=== PATIENT | female | born 1945 | race Caucasian/White ===

== ENCOUNTER → 2017-12-13 08:14 | Outpatient (POV) | payer MEDICARE, OTHER, SELFPAY | PROVIDERS: Visit Provider Nurse Practitioner Acute Care | DX: Z00.00 Encounter for general adult medical examination without abnormal findings (principal) ==

== ENCOUNTER → 2017-12-13 08:59 | Outpatient (POV) | payer MEDICARE, OTHER, SELFPAY ==
[2017-12-13 09:17] VITALS: BP 145/86; PULSE 65; RESP 18; TEMP 36.2; O2SAT 99; BMI 22.4
--- NOTE | 2017-12-13 09:53 | HMH.PAINSOAP ---
[facility] Pain Management SOAP Note Subjective:: This patient is a pleasant 72-year-old white female who we have been treating for mid back pain thoracic radiculopathy symptoms with diffuse osteopenia and osteoporosis and compression fractures at T5, T6, T7 and T9. She did well after a thoracic epidural steroid injection and bracing. She does wear her brace when she is active at home. Pain is down to a 1-2 out of 10 normally. She only has increased with increased activity. She is doing well with no complaints at this time. Objective:: Alert and oriented ?3 in no acute distress. Patient has a normal gait. Patient does have some tenderness over the mid back. Motor strength of the upper and lower extremities is 5/5. There is no gross sensory deficit. 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 She only has increased pain with increased activity. She is to continue wearing her brace. We will follow-up with her in 3 months to reassess her symptoms. If she does have increased pain between now and then she is to call me in the pain clinic and we will get her back in and possibly reassess for repeat the epidural steroid injection.
== END ==
PROVIDERS: Family Provider Internal Medicine Adolescent Medicine; PCP Internal Medicine Adolescent Medicine; Visit Provider Anesthesiology
DX: M54.14 Radiculopathy, thoracic region (principal)
CPT/HCPCS: 99212

== ENCOUNTER → 2017-12-28 11:29 | Outpatient (CLI) | payer MEDICARE, OTHER, SELFPAY ==
--- NOTE | 2017-12-28 11:45 | XR_ITS ---
XR chest 2V HISTORY: ITS.REASON: CAD,HTN,TOB. USE, ORDERING PHYSICIAN: Varun Blake MD PATIENT AGE: 72 years COMPARISON: 01/08/2016 FINDINGS: The cardiomediastinal silhouette and pulmonary vascularity are within normal limits. There is chronic blunting of the right CP angle. There is vague increased density in the right apex. This is nonspecific. Possibly related to patient's kyphosis and pleura. Consider follow-up to confirm stability. There is exaggeration of thoracic kyphosis with wedging of mid dorsal vertebra unchanged. IMPRESSION: Chronic changes, no definite acute finding.
[2017-12-28 13:03] LABS: Alanine Aminotransferase 24 U/L (12-78); Alkaline Phosphatase 87 U/L (46-116); Aspartate Amino Transferase 15 U/L (15-37); Bilirubin,Direct 0.2 mg/dL (0.0-0.2); Bilirubin,Total 0.5 mg/dL (0.2-1.0); Chol/HDL Ratio 1.9 (1-3.5); Cholesterol 158 mg/dL (140-200); HDL Cholesterol 85 mg/dL (29-89); LDL Cholesterol 59 mg/dL (0-130); Total Protein,Serum 7.5 gm/dL (6.4-8.2); Triglycerides 70 mg/dL (30-200); VLDL Cholesterol 14 mg/dL (0-40)
== END ==
PROVIDERS: PCP Internal Medicine Adolescent Medicine; Visit Provider Internal Medicine
DX: I25.10 Atherosclerotic heart disease of native coronary artery without angina pectoris (principal); I10 Essential (primary) hypertension; E78.5 Hyperlipidemia, unspecified; Z72.0 Tobacco use; Z95.5 Presence of coronary angioplasty implant and graft
CPT/HCPCS: 36415; 71046; 80061; 80076

== ENCOUNTER → 2017-12-31 14:06 | Outpatient (CLI) | payer MEDICARE, OTHER, SELFPAY ==
--- NOTE | 2017-12-31 14:15 | CA_ITS ---
PROCEDURE: 2-D M-mode and color Doppler study INDICATIONS FOR THE TEST: Chest pain COPDX Heart Murmur Tobacco SmokingX Palpitations Fatigue Syncope Edema HypertensionXDiabetes Mellitus Rheumatic Fever SOB DOEXObesity HyperlipidemiaX Family History HD Additional History CAD PATIENT INFORMATION HEIGHT: 65 WEIGHT:135 GENDER: Female B/P:130/70 2-D/M-MODE INTERPRETATION: 2-D MEASUREMENTS OBSERVED VALUES IN CMS Right Ventricular Dimension (RVDd) 1.3 Interventricular Septum (Thickness)(IVsd) 1.0 Left Ventricular Internal Dimensions(LVIDd) 5.1 Left Ventricular Posterior Wall (Thickness)(LVPWd) 1.1 Aortic Root 3.8 Aortic Cusp Separation 2.0 Left Atrial Dimensions (LAD) 3.2 2D 1. Left atrium is qualitatively moderately enlarged, left ventricle is normal size, there is no concentric left ventricular hypertrophy, visually estimated ejection fraction 55% with no obvious regional wall motion abnormality. 2. The right atrium is mildly enlarged, right ventricle is normal size and contractility. 3. The aortic valve is thickened and calcified leaflet continue to display mobility. 4. The mitral and tricuspid valve leaflets are minimally thickened. 5. The pulmonic valve is poorly visualized 6. No significant pericardial effusion noted. DOPPLER INTERROGATION: Doppler interrogation of the aortic, mitral and tricuspid valvular presence of mild mitral and moderate tricuspid regurgitation, calculated right ventricular systolic pressure is 46 mmHg consistent with moderate bony hypertension, diastolic parameters are inconclusive. CONCLUSION: 1. Biatrial enlargement, normal left ventricular size, preserved left ventricular systolic function, visually estimated ejection fraction 55% with no obvious regional wall motion abnormality diastolic parameters are inconclusive. 2. Mild mitral and moderate tricuspid regurgitation, calculated right ventricular systolic pressure 46 mmHg consistent with moderate pulmonary hypertension. 3. No significant pericardial effusion noted.
== END ==
PROVIDERS: Family Provider Internal Medicine Adolescent Medicine; PCP Internal Medicine Adolescent Medicine; Visit Provider Internal Medicine
DX: I25.10 Atherosclerotic heart disease of native coronary artery without angina pectoris (principal); I10 Essential (primary) hypertension; E78.5 Hyperlipidemia, unspecified; Z72.0 Tobacco use; Z95.5 Presence of coronary angioplasty implant and graft
CPT/HCPCS: 93306

== ENCOUNTER → 2018-02-28 13:15 | Outpatient (POV) | payer MEDICARE, OTHER, SELFPAY ==
[2018-02-28 13:46] VITALS: BP 127/69; PULSE 68; BMI 22.3
--- NOTE | 2018-02-28 14:23 | HMH.PAINSOAP ---
[facility] Pain Management SOAP Note Subjective:: Is a pleasant 73-year-old white female who presents today for follow-up. Patient has had a T6-T7 thoracic epidural steroid injection back in August of last year and has done extremely well with it. Patient had 80% relief until recently. Patient is interested in doing a repeat injection. Patient is also doing bracing therapy. She does wear her brace when she is active at home. Patient states her pain is 6 out of 10 today. And it increases with activity. Patient's tried and failed medications, anti-inflammatories, bracing and physical therapy. ROS General: no recent weight change, no fever, no sleep disturbances Respiratory: no cough, no shortness of air, no recurring pulmonary infections Cardiovascular/Peripheral Vascular: No chest pain, No palpitations, no edema, no shortness of breath. Gastrointestinal: no incontinence, normal bowel movements reported Genitourinary: no incontinence Musculoskeletal: Back pain Psychiatric: normal mood/ affect, Neurological: [denies weakness in extremities], [denies balance issues] Objective:: Physical Exam General: Alert and oriented x3, no acute distress, pleasant and cooperative, [on room air] Lungs: Resps E/U, Symmetrical chest expansion, Eyes: PERRL Musculoskeletal: Flexion and extension of thoracic spine somewhat guarded secondary to pain, deep tendon reflexes normal, strength in upper and lower extremities [5/5], normal gait noted Neurological: speech clear, laborer driver equal, no gross sensory deficits Assessment:: 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 Given the efficacy of the last one I believe that this will be very helpful. She is to continue wearing her brace. I will follow-up with her after her injection and reassess her symptoms at that time. This note was dictated using voice recognition software and may contain errors or omissions
--- NOTE | 2018-02-28 14:27 | P.CONS_ITS ---
[facility] Pain Management SOAP Note Subjective:: Is a pleasant 73-year-old white female who presents today for follow-up. Patient has had a T6-T7 thoracic epidural steroid injection back in August of last year and has done extremely well with it. Patient had 80% relief until recently. Patient is interested in doing a repeat injection. Patient is also doing bracing therapy. She does wear her brace when she is active at home. Patient states her pain is 6 out of 10 today. And it increases with activity. Patient's tried and failed medications, anti-inflammatories, bracing and physical therapy. ROS General: no recent weight change, no fever, no sleep disturbances Respiratory: no cough, no shortness of air, no recurring pulmonary infections Cardiovascular/Peripheral Vascular: No chest pain, No palpitations, no edema, no shortness of breath. Gastrointestinal: no incontinence, normal bowel movements reported Genitourinary: no incontinence Musculoskeletal: Back pain Psychiatric: normal mood/ affect, Neurological: [denies weakness in extremities], [denies balance issues] Objective:: Physical Exam General: Alert and oriented x3, no acute distress, pleasant and cooperative, [ on room air] Lungs: Resps E/U, Symmetrical chest expansion, Eyes: PERRL Musculoskeletal: Flexion and extension of thoracic spine somewhat guarded secondary to pain, deep tendon reflexes normal, strength in upper and lower extremities [5/5], normal gait noted Neurological: speech clear, quality assurance advisor equal, no gross sensory deficits Assessment:: 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 Given the efficacy of the last one I believe that this will be very helpful. She is to continue wearing her brace. I will follow-up with her after her injection and reassess her symptoms at that time. This note was dictated using voice recognition software and may contain errors or omissions
== END ==
PROVIDERS: Family Provider Internal Medicine Adolescent Medicine; PCP Internal Medicine Adolescent Medicine; Visit Provider Clinical Nurse Specialist Family Health
DX: M54.14 Radiculopathy, thoracic region (principal)
CPT/HCPCS: 99212

== ENCOUNTER → 2018-05-16 11:10 | Outpatient (CLI) | payer MEDICARE, OTHER, SELFPAY ==
[2018-05-16 11:59] LABS: Anion Gap 9.7 mEq/L (5-15); Blood Urea Nitrogen 14 mg/dL (7-18); Calcium 9.3 mg/dL (8.5-10.1); Carbon Dioxide 28 mmol/L (21.0-32.0); Chloride 98 mmol/L (98-107); Creatinine,Serum 0.87 mg/dL (0.55-1.02); Estimated Glomerular Filt Rate 64 ml/min (>60); GFR (African American) 77 ML/MIN (>60); Glucose 101 mg/dL (74-106); Potassium 5.7 mmoL/L (3.5-5.1); Sodium 130 mmol/L (136-145)
== END ==
PROVIDERS: Visit Provider Physician Assistant
DX: J44.9 Chronic obstructive pulmonary disease, unspecified (principal); I10 Essential (primary) hypertension; E78.5 Hyperlipidemia, unspecified; I27.20 Pulmonary hypertension, unspecified; I25.10 Atherosclerotic heart disease of native coronary artery without angina pectoris; Z95.5 Presence of coronary angioplasty implant and graft; F17.200 Nicotine dependence, unspecified, uncomplicated
CPT/HCPCS: 36415; 80048

== ENCOUNTER → 2018-05-20 10:53 | Outpatient (CLI) | payer MEDICARE, OTHER, SELFPAY ==
[2018-05-20 12:09] LABS: Anion Gap 12.1 mEq/L (5-15); Blood Urea Nitrogen 16 mg/dL (7-18); Calcium 9.2 mg/dL (8.5-10.1); Carbon Dioxide 25 mmol/L (21.0-32.0); Chloride 96 mmol/L (98-107); Creatinine,Serum 0.87 mg/dL (0.55-1.02); Estimated Glomerular Filt Rate 64 ml/min (>60); GFR (African American) 77 ML/MIN (>60); Glucose 101 mg/dL (74-106); Potassium 5.1 mmoL/L (3.5-5.1); Sodium 128 mmol/L (136-145)
== END ==
PROVIDERS: Visit Provider Urology
DX: I10 Essential (primary) hypertension (principal); J44.9 Chronic obstructive pulmonary disease, unspecified; E78.5 Hyperlipidemia, unspecified; I27.20 Pulmonary hypertension, unspecified; I25.10 Atherosclerotic heart disease of native coronary artery without angina pectoris; Z95.5 Presence of coronary angioplasty implant and graft; F17.200 Nicotine dependence, unspecified, uncomplicated
CPT/HCPCS: 36415; 80048

== ENCOUNTER → 2018-05-24 09:47 | Outpatient (CLI) | payer MEDICARE, OTHER, SELFPAY ==
--- NOTE | 2018-05-24 09:49 | XR_ITS ---
XR chest 2V HISTORY: ITS.REASON: copd, sob ORDERING PHYSICIAN: Lima Gong PATIENT AGE: 73 years COMPARISON: 12/28/2017 FINDINGS: The cardiomediastinal silhouette and pulmonary vascularity are within normal limits. There is chronic blunting of the right CP angle. No lobar consolidation or collapse. There is mild biapical pleural thickening. There is thoracic kyphosis with mild wedging of several dorsal vertebral body at T5, T6, T7, and T9 not significantly changed. COPD with hyperinflation and prominent anterior clear space. IMPRESSION: COPD, no acute finding. Thoracic kyphosis with chronic wedge compression changes
== END ==
PROVIDERS: PCP Internal Medicine Adolescent Medicine; Visit Provider Urology
DX: R06.02 Shortness of breath (principal); F17.200 Nicotine dependence, unspecified, uncomplicated
CPT/HCPCS: 71046

== ENCOUNTER → 2018-06-08 12:49 | Outpatient (CLI) | payer MEDICARE, OTHER, SELFPAY | PROVIDERS: PCP Internal Medicine Adolescent Medicine; Visit Provider Internal Medicine | DX: G47.33 Obstructive sleep apnea (adult) (pediatric) (principal) | CPT/HCPCS: G0399 ==

== ENCOUNTER → 2018-06-13 08:20 | Outpatient (POV) | payer MEDICARE, OTHER, SELFPAY | PROVIDERS: Family Provider Internal Medicine Adolescent Medicine; PCP Internal Medicine Adolescent Medicine; Visit Provider Nurse Practitioner Acute Care | DX: Z00.00 Encounter for general adult medical examination without abnormal findings (principal) ==

== ENCOUNTER → 2018-09-29 19:47 | Outpatient (CLI) | payer MEDICARE, OTHER, SELFPAY | PROVIDERS: PCP Internal Medicine Adolescent Medicine; Visit Provider Nurse Practitioner Family | DX: G47.33 Obstructive sleep apnea (adult) (pediatric) (principal) | CPT/HCPCS: 95811 ==

== ENCOUNTER → 2018-10-05 06:21 | Outpatient (CLI) | payer MEDICARE, OTHER, SELFPAY ==
--- NOTE | 2018-10-05 06:24 | NM_ITS ---
SPECT MYOCARDIAL PERFUSION SCAN, REST AND STRESS: EXERCISE STRESS: [facility] REVIEW QGS EF AND WALL MOTION EVALUATION: QPS - PERFUSION EVALUATION: HISTORY: Chest pain, SOA PROCEDURE: Rest imaging performed after administration of10.47 millicuries Tc MIBI. Dose administered at6:35 a.m., with imaging thereafter. Stress imaging was then performed following5 minutes 30 seconds of exercise stress. The patient achieved a heart [id number] with projected heart rate of125 . Resting BP172/85 with stress 200/90. At maximum exercise stress,32.1 millicuries Tc MIBI administered at8:15 a.m. with [id number] minutes thereafter. FINDINGS: Perfusion Evaluation: The single slice spect images as well as the [facility] bull's-eye data summary were reviewed. Wall Motion and Ejection Fraction Evaluation: Gated SPECT review and analysis used to evaluate these features. There is a 69 % left ventricular ejection fraction. There seems to be good wall motion Stress images reveal decreased activity in the anterior wall with significant improvement during rest images. Gated images calculated ejection fraction of 69% with normal wall motion. IMPRESSION: High risk abnormal stress test with anterior reversible ischemia. Normal ejection fraction and normal wall motion
--- NOTE | 2018-10-05 07:23 | HMH.ITSHM ---
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 []VITAMIN D3 CLOPIDOGREL ISOSORBIDE OMEPRAZOLE ATORVASTATIN BISOPROLOL
== END ==
PROVIDERS: PCP Internal Medicine Adolescent Medicine; Visit Provider Internal Medicine
DX: R07.9 Chest pain, unspecified; I25.10 Atherosclerotic heart disease of native coronary artery without angina pectoris; R06.00 Dyspnea, unspecified; E78.49 Other hyperlipidemia; I10 Essential (primary) hypertension; I27.20 Pulmonary hypertension, unspecified; J44.9 Chronic obstructive pulmonary disease, unspecified; R53.83 Other fatigue; Z95.5 Presence of coronary angioplasty implant and graft; Z72.0 Tobacco use
CPT/HCPCS: 78452; 93017; A9502

== ENCOUNTER → 2018-10-25 09:20 | Outpatient (CLI) | payer MEDICARE, OTHER, SELFPAY ==
[2018-10-25 10:56] LABS: Alanine Aminotransferase 20 U/L (12-78); Albumin Level 3.9 gm/dL (3.4-5.0); Alkaline Phosphatase 85 U/L (46-116); Aspartate Amino Transferase 13 U/L (15-37); Bilirubin,Direct 0.1 mg/dL (0.0-0.2); Bilirubin,Indirect 0.2 mg/dL (0.0-0.9); Bilirubin,Total 0.3 mg/dL (0.2-1.0); Chol/HDL Ratio 2.2 (1-3.5); Cholesterol 181 mg/dL (140-200); HDL Cholesterol 81 mg/dL (29-89); LDL Cholesterol 81 mg/dL (0-130); Total Protein,Serum 7.4 gm/dL (6.4-8.2); Triglycerides 96 mg/dL (30-200); VLDL Cholesterol 19 mg/dL (0-40)
== END ==
PROVIDERS: Visit Provider Urology
DX: I25.118 Atherosclerotic heart disease of native coronary artery with other forms of angina pectoris; E78.49 Other hyperlipidemia
CPT/HCPCS: 36415; 80061; 80076

== ENCOUNTER → 2019-06-14 12:21 | Outpatient (CLI) | payer MEDICARE, BC, SELFPAY ==
[2019-06-14 12:51] LABS: Basophils % 0.9 % (0.1-2.0); Eosinophils # 0.1 K/mm3 (0.0-0.4); Eosinophils % 1.9 % (0.1-12.0); Hematocrit 38.2 % (37.0-47.0); Hemoglobin 12.6 g/dL (12.2-16.2); Lymphocytes # 1.7 K/mm3 (0.7-4.5); Mean Corpuscular HGB Conc 32.9 g/dL (31.8-35.4); Mean Corpuscular Hemoglobin 29.1 pg (27.0-31.2); Mean Corpuscular Volume 88.5 fl (81-99); Mean Platelet Volume 7.3 fl (7.4-10.4); Monocytes # 0.3 K/mm3 (0.1-1.0); Monocytes % 5.3 % (1.7-9.3); Neutrophils # 3.1 K/mm3 (1.8-7.8); Platelet Count 293 K/mm3 (142-424); Red Blood Count 4.32 M/mm3 (4.20-5.40); Red Cell Distribution Width 13.3 % (11.5-17.5); White Blood Count 5.2 K/mm3 (4.8-10.8)
[2019-06-14 13:31] LABS: Potassium 4.7 mmoL/L (3.5-5.1); Sodium 132 mmol/L (136-145)
[2019-06-14 14:00] LABS: Alanine Aminotransferase 20 U/L (12-78); Albumin Level 4.1 gm/dL (3.4-5.0); Albumin/Globulin Ratio 1.1 (1.1-1.8); Alkaline Phosphatase 84 U/L (46-116); Anion Gap 13.7 mEq/L (5-15); Aspartate Amino Transferase 10 U/L (15-37); Bilirubin,Total 0.5 mg/dL (0.2-1.0); Blood Urea Nitrogen 13 mg/dL (7-18); Calcium 9.7 mg/dL (8.5-10.1); Carbon Dioxide 26 mmol/L (21.0-32.0); Chloride 97 mmol/L (98-107); Chol/HDL Ratio 2.4 (1-3.5); Cholesterol 201 mg/dL (140-200); Creatinine,Serum 0.94 mg/dL (0.55-1.02); Estimated Glomerular Filt Rate 58 ml/min (>60); Free Thyroxine Index 3.1 ug/dL (5.93-13.13); GFR (African American) 70 ML/MIN (>60); Globulin 3.6 gm/dl (1.3-3.2); Glucose 92 mg/dL (74-106); HDL Cholesterol 85 mg/dL (29-89); LDL Cholesterol 97 mg/dL (0-130); T4 (Thyroxine) 8.6 ug/dl (4.7-13.3); Thyroid Stimulating Hormone 2.16 uIU/ml (0.358-3.740); Total Protein,Serum 7.7 gm/dL (6.4-8.2); Triglycerides 97 mg/dL (30-200); Triiodothryronine (T3) Uptake 36 % (31-39); VLDL Cholesterol 19 mg/dL (0-40)
[2019-06-15 13:20] LABS: Rapid Plasma Reagin Ab Titer Non Reactive (NonRea<1:1); Vitamin B12 334 pg/mL (232-1245); Vitamin D 25 Hydroxy 44.4 ng/mL (30.0-100.0)
== END ==
PROVIDERS: Visit Provider Internal Medicine Adolescent Medicine
DX: G60.9 Hereditary and idiopathic neuropathy, unspecified (principal); E78.49 Other hyperlipidemia
CPT/HCPCS: 36415; 80053; 80061; 82607; 82652; 83735; 84436; 84443; 84479; 85025; 86592

== ENCOUNTER → 2019-07-28 13:41 | Outpatient (CLI) | payer MEDICARE, BC, SELFPAY ==
--- NOTE | 2019-07-28 13:55 | XR_ITS ---
PROCEDURE: XR SHOULDER LT MIN 2V CLINICAL INDICATION: follow up shoulder pain Follow-up fracture COMPARISON: XR SHOULDER LT MIN 2V from 07/10/2019 CT SHOULDER LT WO CON from 07/10/2019 FINDINGS: Comminuted displaced fracture of the proximal humerus once again noted with anterior displacement of the fracture fragment. The definite degree of displacement is difficult to determine but is at least 2 cm with impaction of the fracture fragments. IMPRESSION: No change impacted and displaced proximal humeral fracture Dictated by: Garrett Phillip MD 07/28/2019 15:04 Electronically signed by Garrett Phillip MD in [place] 07/28/2019 15:04
== END ==
PROVIDERS: PCP Internal Medicine Adolescent Medicine; Visit Provider Orthopaedic Surgery
DX: M25.512 Pain in left shoulder (principal)
CPT/HCPCS: 73030

== ENCOUNTER → 2019-08-16 13:02 | Outpatient (CLI) | payer MEDICARE, BC, SELFPAY ==
[2019-08-16 13:27] LABS: Basophils # 0.1 K/mm3 (0-0.2); Basophils % 0.9 % (0.1-2.0); Eosinophils # 0.1 K/mm3 (0.0-0.4); Eosinophils % 1.9 % (0.1-12.0); Hematocrit 32.9 % (37.0-47.0); Hemoglobin 10.1 g/dL (12.2-16.2); Lymphocytes # 1.7 K/mm3 (0.7-4.5); Lymphocytes % 24.2 % (10-50); Mean Corpuscular HGB Conc 30.8 g/dL (31.8-35.4); Mean Corpuscular Hemoglobin 28.1 pg (27.0-31.2); Mean Corpuscular Volume 91.2 fl (81-99); Mean Platelet Volume 8.6 fl (7.4-10.4); Monocytes # 0.3 K/mm3 (0.1-1.0); Monocytes % 4.5 % (1.7-9.3); Neutrophils # 4.8 K/mm3 (1.8-7.8); Neutrophils % 68.4 % (37.0-80.0); Platelet Count 280 K/mm3 (142-424); Red Blood Count 3.61 M/mm3 (4.20-5.40); Red Cell Distribution Width 14.5 % (11.5-17.5); White Blood Count 7.1 K/mm3 (4.8-10.8)
[2019-08-16 15:05] LABS: Hemoglobin A1C 5.3 % (0.0-7.0)
[2019-08-16 15:17] LABS: Alanine Aminotransferase 13 U/L (12-78); Albumin Level 3.6 gm/dL (3.4-5.0); Albumin/Globulin Ratio 1.1 (1.1-1.8); Alkaline Phosphatase 79 U/L (46-116); Anion Gap 13.3 mEq/L (5-15); Aspartate Amino Transferase 17 U/L (15-37); Bilirubin,Total 0.3 mg/dL (0.2-1.0); Blood Urea Nitrogen 14 mg/dL (7-18); Calcium 8.7 mg/dL (8.5-10.1); Carbon Dioxide 26 mmol/L (21.0-32.0); Chloride 100 mmol/L (98-107); Creatinine,Serum 0.87 mg/dL (0.55-1.02); Estimated Glomerular Filt Rate 64 ml/min (>60); GFR (African American) 77 ML/MIN (>60); Globulin 3.4 gm/dl (1.3-3.2); Glucose 88 mg/dL (74-106); Potassium 4.3 mmoL/L (3.5-5.1); Sodium 135 mmol/L (136-145); Thyroid Stimulating Hormone 1.78 uIU/ml (0.358-3.740)
[2019-08-17 23:11] LABS: Vitamin B12 841 pg/mL (232-1245)
== END ==
PROVIDERS: Visit Provider Internal Medicine Adolescent Medicine
DX: I95.1 Orthostatic hypotension (principal); G60.9 Hereditary and idiopathic neuropathy, unspecified; Z79.899 Other long term (current) drug therapy
CPT/HCPCS: 36415; 80053; 82607; 83036; 84443; 85025

== ENCOUNTER → 2019-08-18 08:47 | Outpatient (CLI) | payer MEDICARE, BC, SELFPAY ==
--- NOTE | 2019-08-18 08:52 | XR_ITS ---
PROCEDURE: XR SHOULDER LT MIN 2V CLINICAL INDICATION: Shoulder FX follow-up COMPARISON: 07/28/2019. FINDINGS: There has been some callus formation involving the proximal left humeral fracture. The alignment at the glenohumeral joint is stable. The remainder of the exam is unchanged. IMPRESSION: Interval callus formation indicating some healing of the proximal left humeral fracture. Dictated by: Lacho Guillen 08/18/2019 09:34 Electronically signed by Lacho Guillen in [place] 08/18/2019 09:34
== END ==
PROVIDERS: PCP Internal Medicine Adolescent Medicine; Visit Provider Orthopaedic Surgery
DX: S42.202A Unspecified fracture of upper end of left humerus, initial encounter for closed fracture (principal)
CPT/HCPCS: 73030

== ENCOUNTER → 2019-08-28 11:35 | Outpatient (POV) | payer MEDICARE, BC, SELFPAY | PROVIDERS: PCP Nurse Practitioner Family; Visit Provider Nurse Practitioner Family | DX: Z00.00 Encounter for general adult medical examination without abnormal findings (principal) ==

== ENCOUNTER → 2019-09-14 14:07 | Outpatient (CLI) | payer MEDICARE, BC, SELFPAY ==
--- NOTE | 2019-09-14 14:18 | XR_ITS ---
PROCEDURE: XR SHOULDER LT MIN 2V CLINICAL INDICATION: Shoulder FX Follow-up shoulder fracture with limited range of motion and pain COMPARISON: XR SHOULDER LT MIN 2V from 07/10/2019 CT SHOULDER LT WO CON from 07/10/2019 XR SHOULDER LT MIN 2V from 07/28/2019 XR SHOULDER LT MIN 2V from 08/18/2019 FINDINGS: Displaced humeral neck fracture is present. There remains anterior displacement of the distal fracture fragment with some foreshortening and rotation of the radial head. Callus formation is noted laterally as before IMPRESSION: No change displaced humeral neck fracture Dictated by: Garrett Phillip MD 09/14/2019 14:39 Electronically signed by Garrett Phillip MD in [place] 09/14/2019 14:39
== END ==
PROVIDERS: PCP Internal Medicine Adolescent Medicine; Visit Provider Orthopaedic Surgery
DX: S42.92XA Fracture of left shoulder girdle, part unspecified, initial encounter for closed fracture (principal)
CPT/HCPCS: 73030

== ENCOUNTER → 2019-09-18 13:49 | Outpatient (CLI) | payer MEDICARE, BC, SELFPAY ==
--- NOTE | 2019-09-18 14:06 | XR_ITS ---
PROCEDURE: XR DEXA AXIAL SKELETON CLINICAL HISTORY: POST MENOPAUSAL COMPARISON: No exams were available for comparison FINDINGS: L1-L4 density is 0.979 grams/centimeters sq with a T-score of -1.7. Mean hip density is 0.688 grams/centimeters sq with a T-score of -2.5 indicating osteoporosis. IMPRESSION: Osteoporosis with high fracture risk. Treatment advised. Suggest follow-up exam September 2020 Dictated by: Garrett Phillip MD 09/18/2019 15:33 Electronically signed by Garrett Phillip MD in [place] 09/18/2019 15:33
== END ==
PROVIDERS: PCP Internal Medicine Adolescent Medicine; Visit Provider Internal Medicine Adolescent Medicine
DX: M81.0 Age-related osteoporosis without current pathological fracture (principal)
CPT/HCPCS: 77080

== ENCOUNTER 2019-10-02 10:06 | Outpatient (CLI) | payer MEDICARE, BC, SELFPAY ==
[2019-10-02 10:13] VITALS: BP 118/70; PULSE 90; RESP 18; TEMP 36.8; O2SAT 98
[2019-10-02 10:45] VITALS: BP 122/74; PULSE 85; RESP 18; TEMP 36.7; O2SAT 98
== END 2019-10-02 10:45 | disposition home or self-care (01) ==
LOC: INF 10:06
PROVIDERS: Visit Provider Internal Medicine Adolescent Medicine
DX: M81.0 Age-related osteoporosis without current pathological fracture (principal)
CPT/HCPCS: 96372; J0897

== ENCOUNTER → 2019-10-16 09:21 | Outpatient (CLI) | payer MEDICARE, BC, SELFPAY ==
--- NOTE | 2019-10-16 09:25 | XR_ITS ---
PROCEDURE: XR SHOULDER LT MIN 2V CLINICAL INDICATION: Humerus FX Follow-up fracture COMPARISON: XR SHOULDER LT MIN 2V from 07/10/2019 XR SHOULDER LT MIN 2V from 07/28/2019 XR SHOULDER LT MIN 2V from 08/18/2019 XR SHOULDER LT MIN 2V from 09/14/2019 FINDINGS: There is a healing displaced humeral neck fracture as previously described. There is anterior displacement of the distal fracture fragment with foreshortening the rotation the humeral head with callus formation laterally. There are osteoarthritic changes of the shoulder joint IMPRESSION: No change healing displaced humeral neck fracture Dictated by: Garrett Phillip MD 10/16/2019 20:19 Electronically signed by Garrett Phillip MD in [place] 10/16/2019 20:19
== END ==
PROVIDERS: PCP Internal Medicine Adolescent Medicine; Visit Provider Orthopaedic Surgery
DX: S42.302A Unspecified fracture of shaft of humerus, left arm, initial encounter for closed fracture (principal)
CPT/HCPCS: 73030

== ENCOUNTER 2019-10-23 10:30 | Outpatient (RCR) | payer MEDICARE, BC, SELFPAY ==
--- NOTE | 2019-08-03 13:55 | HMH.OTOPEV ---
OT Inpatient Evaluation Rehab OT Outpatient Eval Start: 08/03/19 13:37 Freq: Status: Active Protocol: Document 08/03/19 13:37 RMARSHALL (Rec: 08/03/19 13:55 [facility] [id number]) Electronically Signed By Alicia Francis OT 08/03/19 13:37 Outpatient Therapy Subjective History Subjective History Pt is a 74 year old female who reports to therapy for initial evaluation to left shoulder. Pt fell out of her recliner on 07/10/19 resulting in a Left proximal humerus fx. Pt did not have surgery due to being hospitalized for a bowl obstruction. Pt is currently 3 weeks out from injury. Pt demonstrates with significant deficits in AROM and strength at right shoulder . Pt will continue to be seen in order to address all deficits. Chief Complaint Pain,Stiff,Weakness Symptom Type Ache,Throb,Sharp,Shooting Symptoms Relieved By Nothing Symptoms Aggravated By Physical Activity,Twisting, Lifting Prior Functional Limitations None Current Functional Limitations Reaching,Lifting,Housework, Dressing,Recreation Activity Symptom Description Constant but Variable Level of pain today (0-10) 3 Pain scale - at its best (0-10) 3 Pain scale - at its worst (0-10) 8 Shoulder/Elbow Eval Shoulder Objective Measurements Shoulder ROM Right Shoulder Abduction Active Range of 25 degrees Motion (degrees) Shoulder Abduction Passive Range of 60 degrees Motion (degrees) Shoulder Flexion Active Range of Motion 25 degrees (degrees) Query Text: Shoulder Flexion Passive Range of Motion 50 degrees (degrees) Shoulder External Rotation Active Range 0 degrees of Motion (degrees) Shoulder External Rotation Passive Range 20 degrees of Motion (degrees) Shoulder Internal Rotation Active Range 0 degrees of Motion (degrees) Shoulder Internal Rotation Passive Range 10 degrees of Motion (degrees) pain with active ROM shoulder exam left standard pain with passive ROM shoulder exam left standard decreased ROM shoulder exam standard left Shoulder MMT Left Shoulder Abduction Strength Grade 2+ Poor+ Shoulder Extension Strength Grade 2+ Poor+ Shoulder Flexion Strength Grade
--- NOTE | 2019-09-13 11:06 | HMH.RHREAS ---
Rehab Reassessment Rehab OP Re-assessment Start: 09/13/19 10:49 Freq: Status: Active Protocol: Document 09/13/19 10:49 HARI (Rec: 09/13/19 11:06 HARI [id number]) Electronically Signed By Alicia Francis OT 09/13/19 10:49 Rehab Re-assessment Subjective Subjective I go back to the doctor this week. Objective Objective Notes Pt continues to be seen twice a week in order to engage in AROM and AAROM exercises to left UE. Pt also continues to be passively ranged in flexion, abduction, ER, and IR in supine. Pt does receive modaliteis such as e-stim in order to decrease pain/ inflammation. Assessment Progress Assessment Slower Than Expected Assessment Notes Pt has demonstrated minimal improvement in left shoulder motion since initial evaluaiton. Pt's arom at left elbow has improved and is now within normal limites. However, strength and mobility at left shoulder continues to be significantly impaired despite therapy treatment. Pt returns to doctor on September 15. Current AROM L Shoulder Flex: 75 degrees Abd: 70 degrees ER: 0 degrees IR: 0 degrees Current PROM L shoulder Flex: 90 degrees Abd: 90 degrees ER: 30 degrees IR: 50 degrees. Patient goals met Elbow goals have been met Goals Not Met LTG and STG for left shoulder Revised Goals Continue progressing toward goals written on initial evaluation. Plan Plan Continue with OT plan of care Frequency of Therapy 2x's a week Duration of therapy 4 more weeks Time and Billing Re-Eval Time 15 Re-Eval Billing Units 1 PHYSICIAN CERTIFICATION: I certify the specified therapy services for Nadira Helm are required, authorized, and reviewed every 30 d
--- NOTE | 2019-10-09 10:43 | HMH.RHREAS ---
Rehab Reassessment Rehab OP Re-assessment Start: 09/13/19 10:49 Freq: Status: Active Protocol: Document 10/09/19 09:42 HARI (Rec: 10/09/19 10:39 HARI [id number]) Electronically Signed By Alicia Francis OT 10/09/19 09:42 Rehab Re-assessment Objective Objective Notes Pt continues to be seen twice a week in order to engage in AROM and AAROM exercises to left UE. Pt also continues to be passively ranged in flexion, abduction, ER, and IR in supine. Pt does receive modaliteis such as e-stim in order to decrease pain/ inflammation. Assessment Progress Assessment Slower Than Expected Assessment Notes Pt's strength and mobility at left shoulder continues to be significantly impaired despite therapy treatment. Motion and strength remains the same as last reassessment. Current AROM L Shoulder Flex: 75 degrees Abd: 70 degrees ER: 0 degrees IR: 0 degrees Current PROM L shoulder Flex: 90 degrees Abd: 90 degrees ER: 30 degrees IR: 50 degrees. Patient goals met Elbow goals have been met Goals Not Met LTG and STG for left shoulder Revised Goals Continue progressing toward goals written on initial evaluation. Plan Plan Continue with OT plan of care Frequency of Therapy 2x's a week Duration of therapy 4 more weeks Time and Billing Re-Eval Time 15 Re-Eval Billing Units 1 PHYSICIAN CERTIFICATION: I certify the specified therapy services for Nadira Helm are required, authorized, and reviewed every 30 days.
== END 2019-10-23 10:35 | disposition home or self-care (01) ==
LOC: OT 10:30
PROVIDERS: PCP Internal Medicine Adolescent Medicine; Visit Provider Orthopaedic Surgery
DX: S42.212D Unspecified displaced fracture of surgical neck of left humerus, subsequent encounter for fracture with routine healing (principal)
CPT/HCPCS: 97014; 97110; 97140; 97164; 97166; G0283

== ENCOUNTER → 2019-11-22 20:24 | Outpatient (CLI) | payer MEDICARE, BC, SELFPAY | PROVIDERS: PCP Internal Medicine Adolescent Medicine; Visit Provider Nurse Practitioner Family | DX: G47.33 Obstructive sleep apnea (adult) (pediatric) (principal); I10 Essential (primary) hypertension | CPT/HCPCS: 95811 ==

== ENCOUNTER → 2019-12-04 11:22 | Outpatient (POV) | payer MEDICARE, BC, SELFPAY | PROVIDERS: Visit Provider Nurse Practitioner Family | DX: Z00.00 Encounter for general adult medical examination without abnormal findings (principal) ==

== ENCOUNTER → 2020-01-24 13:40 | Outpatient (CLI) | payer MEDICARE, BC, SELFPAY | PROVIDERS: PCP Internal Medicine Adolescent Medicine; Visit Provider Internal Medicine | DX: R06.02 Shortness of breath (principal) | CPT/HCPCS: 93306 ==

== ENCOUNTER 2020-04-01 10:15 | Outpatient (CLI) | payer MEDICARE, BC, SELFPAY ==
[2020-04-01 10:25] VITALS: BP 148/76; PULSE 64; RESP 18; TEMP 36.9; O2SAT 98
== END 2020-04-01 10:45 | disposition home or self-care (01) ==
LOC: INF 10:15
PROVIDERS: Visit Provider Internal Medicine Adolescent Medicine
DX: M81.0 Age-related osteoporosis without current pathological fracture (principal)
CPT/HCPCS: 96372; J0897

== ENCOUNTER → 2020-04-22 10:07 | Outpatient (CLI) | payer MEDICARE, BC, SELFPAY ==
[2020-04-22 13:31] LABS: Coronavirus 19 IgG Antibody Negative (Negative); Coronavirus 19 IgM Antibody Negative (Negative)
== END ==
PROVIDERS: Visit Provider Ophthalmology
DX: Z01.818 Encounter for other preprocedural examination (principal); H26.9 Unspecified cataract
CPT/HCPCS: 36415; 86328

== ENCOUNTER 2020-04-23 07:53 | Day surgery (SDC) | payer MEDICARE, BC, SELFPAY ==
[2020-04-17 10:31] VITALS: BMI 22.3
--- NOTE | 2020-04-19 10:02 | SUR.PREOP ---
04/19/2020 @ 1000--PHONE CALL MADE TO PATIENT. PATIENT UNDERSTANDS THAT LAB WORK AND COVID TESTING NEEDS TO BE COMPLETED @ 1000 ON 04/22/2020. PATIENT UNDERSTANDS IF LAB WORK AND COVID-19 TESTS ARE NOT COMPLETED BY 12PM ON THAT DATE, THE SURGERY SCHEDULED WILL BE CANCELLED AND RESCHEDULED FOR ANOTHER TIME.
[2020-04-23 08:47] VITALS: BP 125/62; PULSE 57; RESP 18; TEMP 36.7; O2SAT 99
[2020-04-23 09:39] VITALS: BP 137/66; PULSE 46; RESP 18; O2SAT 98
[2020-04-23 09:44] VITALS: BP 120/67; PULSE 47; RESP 18; O2SAT 100
[2020-04-23 09:49] VITALS: BP 121/63; PULSE 46; RESP 16; O2SAT 100
[2020-04-23 09:54] VITALS: BP 115/60; PULSE 45; RESP 16; O2SAT 100
[2020-04-23 09:58] VITALS: BP 128/67; PULSE 50; RESP 18; TEMP 36.7; O2SAT 99
== END 2020-04-23 10:14 | disposition home or self-care (01) ==
LOC: OR 07:54
PROVIDERS: PCP Internal Medicine Adolescent Medicine; Visit Provider Ophthalmology
DX: H25.9 Unspecified age-related cataract (principal); H53.149 Visual discomfort, unspecified; H53.8 Other visual disturbances; Z79.899 Other long term (current) drug therapy
CPT/HCPCS: 66984; V2632

== ENCOUNTER → 2020-05-27 10:46 | Outpatient (CLI) | payer MEDICARE, BC, SELFPAY ==
[2020-05-27 12:53] LABS: Coronavirus 19 IgG Antibody Negative (Negative); Coronavirus 19 IgM Antibody Negative (Negative)
== END ==
PROVIDERS: Visit Provider Ophthalmology
DX: Z01.818 Encounter for other preprocedural examination (principal)
CPT/HCPCS: 36415; 86328

== ENCOUNTER 2020-05-28 06:55 | Day surgery (SDC) | payer MEDICARE, BC, SELFPAY ==
[2020-05-23 16:03] VITALS: BMI 23.1
[2020-05-28 07:38] VITALS: BP 120/72; PULSE 56; RESP 18; TEMP 36.5; O2SAT 94
[2020-05-28 08:15] VITALS: BP 128/61; PULSE 48; RESP 22; O2SAT 98
[2020-05-28 08:20] VITALS: BP 116/59; PULSE 49; RESP 20; O2SAT 100
[2020-05-28 08:25] VITALS: BP 127/58; PULSE 49; RESP 20; O2SAT 100
[2020-05-28 08:30] VITALS: BP 118/57; PULSE 51; RESP 22; O2SAT 100
[2020-05-28 08:33] VITALS: BP 120/78; PULSE 67; RESP 16; TEMP 36.2; O2SAT 98
== END 2020-05-28 08:33 | disposition home or self-care (01) ==
LOC: OR 06:57
PROVIDERS: PCP Internal Medicine Adolescent Medicine; Visit Provider Ophthalmology
DX: H26.9 Unspecified cataract (principal); E78.5 Hyperlipidemia, unspecified; I20.9 Angina pectoris, unspecified; I25.10 Atherosclerotic heart disease of native coronary artery without angina pectoris; I27.20 Pulmonary hypertension, unspecified; N28.9 Disorder of kidney and ureter, unspecified; K55.9 Vascular disorder of intestine, unspecified; Z88.8 Allergy status to other drugs, medicaments and biological substances; Z79.82 Long term (current) use of aspirin; Z79.899 Other long term (current) drug therapy
CPT/HCPCS: 66984; V2632

== ENCOUNTER → 2020-08-15 08:59 | Outpatient (CLI) | payer MEDICARE, BC, SELFPAY ==
[2020-08-15 11:35] LABS: Coronavirus 19 IgG Antibody Negative (Negative); Coronavirus 19 IgM Antibody Negative (Negative)
== END ==
PROVIDERS: Visit Provider Internal Medicine Gastroenterology
DX: Z01.89 Encounter for other specified special examinations (principal); Z12.11 Encounter for screening for malignant neoplasm of colon
CPT/HCPCS: 36415; 86328

== ENCOUNTER 2020-08-16 09:28 | Day surgery (SDC) | payer MEDICARE, BC, SELFPAY ==
[2020-08-13 09:33] VITALS: BMI 22.9
[2020-08-16] VITALS (8 sets, daily range): BP systolic 71–127; BP diastolic 48–77; PULSE 69–93; RESP 18; TEMP 36.2–36.7; O2SAT 96–99
--- NOTE | 2020-08-16 11:13 | P.PN_ITS ---
[facility] Anesthesia Checklist - Patient Identification Patient Identification: Arm Band - Structural Data Admitted From: Home Planned Operative Procedure/s: colonoscopy Consent for Planned Operative Procedure(s) Verified: Yes Verified Documents: Surgical Consent, History and Physical - NPO Status Verified Time NPO: 00:00 - Additional verifications Anesthesia Reactions: No - Airway Assessment C-Spine Mobility Assessed: Yes (mp2) TMJ Mobility Assessed: Yes Dentition: Dentures-good fit - Neurological Assessment Level of Consciousness: Awake, Alert - Anesthesia Plan Anesthesia Risk discussed: Yes Anesthesia Plan: Verified ASA Class: III Anesthesia Type: MAC [facility] History I have reviewed the patient's past medical history: Yes Medical History: Reports:: Chronic Obstructive Pulmonary Disease (COPD), Coronary Artery Disease, Gastroesophageal Reflux Disease(GERD), Hyperlipidemia, Hypertension, MRSA, Palpitations Denies:: Cancer, Diabetes Mellitus Type 1, Diabetes Mellitus Type 2, Internal Pacemaker, Seizures *Have you ever received a pneumonia vaccine?: Yes *Have you received a flu vaccine this season?: Yes Other Medical History: Reports: Sinus Problems, Other Anesthesia experience/problems:: nac Laterality Cases: Left: Arthroscopy Shoulder Other Surgeries: Yes: Angioplasty, Cardiac Catheterization, Cholecystectomy, Colonoscopy, Coronary Stent, Dilation and Curettage, Hernia Repair, Hysterectomy-Total, Hysterectomy-Partial, Other. No: Pacemaker Amputation: No Fractures: Yes (lt shoulder) - *Social History Last grade of school completed: High school graduate Smoking Status: Current every day smoker Tobacco Type: cigarettes # Packs/Day (cigarettes): 1 #Yrs smoked (if former smoker): 50 Alcohol Intake: never Alcohol Intake Frequency:: a few times a month Substance Use Type: denies use *Occupational Status:: retired Housing: house Household Members: spouse *Travel in the last 8 weeks: None Family Hx:: Cancer, Coronary Artery Disease, Heart Attack
--- NOTE | 2020-08-16 11:36 | HMH.PROC ---
[facility] Procedure Note Procedure Note:: Colonoscopy Procedure Report: Colonoscopy with cold snare polypectomy Endoscopist: Thad Torres II, MD Referring physician: Wally Martinez M.D. Date of Procedure: August 16, 2020 Equipment: Olympus 180 variable stiffness pediatric colonoscope Sedation: MAC sedation Indication: Mrs. Helm is a 75-year-old female who is here for follow-up screening/surveillance colonoscopy. She had a colonoscopy 7 or 8 years ago (in [place]) and was reportedly normal. Her last colonoscopy with tn in July 2017 revealed 7 colon polyps (tubular adenomas x3/small serrated adenomas x2/hyperplastic polyps x2) which were removed. She reports no abdominal pain, weight loss, change in her bowel habits or rectal bleeding. She reports no family history of colon cancer. She continues to have constipation and does take the fiber bowel regimen (MiraLAX plus Citrucel) daily as well as 2 stool softeners. Procedure: Prior to the procedure, a history and physical exam was performed, and patient's medications and allergies were reviewed. The risks, benefits and alternatives of the sedation and procedure were discussed with the patient. All questions were answered and informed consent was obtained. The patient was brought to the procedure room. Patient identification and proposed procedure were verified by the physician and the nurse. The patient was placed in a left lateral decubitus position and the scope was passed under direct vision. Throughout the procedure, the patient's blood pressure, pulse, and oxygen saturations were monitored continuously. The colonoscopy was accomplished without difficulty. The patient tolerated the procedure well. Findings: On digital rectal examination there was normal rectal tone. There were no external hemorrhoids. The colonoscope was introduced through the anal canal to the rectum and advanced to the cecum. The ileocecal valve and appendiceal orifice were identified. The scope was advanced a short distance into the ileum which appeared grossly normal. The scope was then withdrawn into the colon. There was a single 4 mm polyp in the descending colon removed via cold snare polypectomy. The remaining cecum, ascending, transverse, descending, sigmoid and rectum were grossly normal. There were no mucosal abnormalities identified. Upon retroflexion within the rectum there were grade 1 internal hemorrhoids.The preparation was excellent throughout with [place] Preparation Score of 9. The cecal time was 10 minutes. Impression: 1. Diminutive descending colon polyp 2. Grade 1 internal hemorrhoids Plan: I will follow-up the polyp histology. Based upon the patient's age, I am not convinced that she will require any further preventive/screening colonoscopy. I would consider increasing the MiraLAX plus Citrucel up to twice daily.
== END 2020-08-16 12:32 | disposition home or self-care (01) ==
LOC: OUTP 09:30
PROVIDERS: PCP Internal Medicine Adolescent Medicine; Visit Provider Internal Medicine Gastroenterology
PROC: 0DJD8ZZ Inspection of Lower Intestinal Tract, Via Natural or Artificial Opening Endoscopic (ICD-10-PCS; CPT 45378; principal; 2020-08-16 10:30)
DX: Z12.11 Encounter for screening for malignant neoplasm of colon (principal); Z87.19 Personal history of other diseases of the digestive system; K63.5 Polyp of colon; K64.0 First degree hemorrhoids; J44.9 Chronic obstructive pulmonary disease, unspecified; I25.10 Atherosclerotic heart disease of native coronary artery without angina pectoris; K21.9 Gastro-esophageal reflux disease without esophagitis; I10 Essential (primary) hypertension; E78.5 Hyperlipidemia, unspecified; R00.2 Palpitations; Z86.14 Personal history of Methicillin resistant Staphylococcus aureus infection; Z87.39 Personal history of other diseases of the musculoskeletal system and connective tissue
CPT/HCPCS: 45385; 88305

== ENCOUNTER 2020-10-02 09:55 | Outpatient (CLI) | payer MEDICARE, BC, SELFPAY ==
[2020-10-02 10:20] VITALS: BP 122/68; PULSE 58; RESP 18; TEMP 36.6
== END 2020-10-02 10:35 | disposition home or self-care (01) ==
LOC: INF 10:05
PROVIDERS: Visit Provider Internal Medicine Adolescent Medicine
DX: M81.0 Age-related osteoporosis without current pathological fracture (principal)
CPT/HCPCS: 96372; J0897

== ENCOUNTER → 2020-10-30 15:19 | Outpatient (CLI) | payer MEDICARE, BC, SELFPAY ==
[2020-10-30 16:25] LABS: Basophils # 0.1 K/mm3 (0-0.2); Basophils % 0.9 % (0.1-2.0); Eosinophils # 0.1 K/mm3 (0.0-0.4); Eosinophils % 1.7 % (0.1-12.0); Hematocrit 38.9 % (37.0-47.0); Hemoglobin 12.7 g/dL (12.2-16.2); Lymphocytes # 2.4 K/mm3 (0.7-4.5); Lymphocytes % 31.8 % (10-50); Mean Corpuscular HGB Conc 32.7 g/dL (31.8-35.4); Mean Corpuscular Volume 91.8 fl (81-99); Mean Platelet Volume 8.4 fl (7.4-10.4); Monocytes # 0.4 K/mm3 (0.1-1.0); Neutrophils # 4.6 K/mm3 (1.8-7.8); Neutrophils % 60.5 % (37.0-80.0); Platelet Count 247 K/mm3 (142-424); Red Blood Count 4.24 M/mm3 (4.20-5.40); Red Cell Distribution Width 14.1 % (11.5-17.5); White Blood Count 7.7 K/mm3 (4.8-10.8)
[2020-10-30 17:51] LABS: Alanine Aminotransferase 13 U/L (12-78); Albumin Level 4.7 g/dl (3.5-5.0); Albumin/Globulin Ratio 1.4 (1.1-1.8); Alkaline Phosphatase 61 U/L (38-126); Anion Gap 11.6 mEq/L (5-15); Aspartate Amino Transferase 33 U/L (14-36); Bilirubin,Total 0.5 mg/dl (0.2-1.3); Blood Urea Nitrogen 19 mg/dl (7-17); Calcium 11.2 mg/dl (8.4-10.2); Carbon Dioxide 30 mmol/L (22.0-30.0); Chloride 99 mmol/L (98-107); Chol/HDL Ratio 2.2 (1-3.5); Cholesterol 176 mg/dl (140-200); Estimated Glomerular Filt Rate 54 ml/min (>60); GFR (African American) 65 ML/MIN (>60); Globulin 3.4 g/dL (1.3-3.2); Glucose 88 mg/dl (74-100); HDL Cholesterol 81 mg/dl (40-60); Potassium 4.6 mmoL/L (3.5-5.1); Sodium 136 mmol/L (136-145); Total Protein,Serum 8.1 g/dl (6.3-8.2); Triglycerides 146 mg/dl (30-150); VLDL Cholesterol 29 mg/dL (0-40)
[2020-10-30 18:02] LABS: Direct LDL Cholesterol 52.38 mg/dL (100-129)
== END ==
PROVIDERS: Visit Provider Internal Medicine Adolescent Medicine
DX: I25.10 Atherosclerotic heart disease of native coronary artery without angina pectoris (principal)
CPT/HCPCS: 36415; 80053; 80061; 85025

== ENCOUNTER → 2020-11-27 12:21 | Outpatient (CLI) | payer MEDICARE, BC, SELFPAY ==
[2020-11-27 13:54] LABS: Intact Parathyroid Hormone 27.7 pg/mL (7.5-53.5)
[2020-11-29 20:06] LABS: Calcium, Ionized 5.5 mg/dL (4.5-5.6)
== END ==
PROVIDERS: Visit Provider Internal Medicine Adolescent Medicine
DX: E83.52 Hypercalcemia (principal)
CPT/HCPCS: 36415; 82330; 83970

== ENCOUNTER → 2021-03-14 09:56 | Outpatient (CLI) | payer MEDICARE, BC, SELFPAY ==
--- NOTE | 2021-03-14 09:58 | MM_ITS ---
PROCEDURE INFORMATION: Exam: Screening 3D Mammography Exam date and time: 03/14/2021 9:58 AM Age: 76 years old Clinical indication: Encounter for screening mammogram for malignant neoplasm of breast TECHNIQUE: Imaging protocol: Screening tomosynthesis and 2D mammography including computer-aided detection (CAD) when performed. COMPARISON: DMSB DIG MAMM-SCREEN GILBERTO 03/05/2015 8:58 AM FINDINGS: MAMMOGRAPHY: Breast composition: The breast tissue is heterogeneously dense, which may obscure small masses. Mass: None. Architectural distortion: None. Calcifications: No suspicious calcifications. Asymmetric density: None. Skin thickening: None. Axillary adenopathy: None. IMPRESSION: No mammographic evidence of malignancy. Annual screening is recommended unless otherwise clinically indicated. ASSESSMENT: BI-RADS Category 1: Negative
== END ==
PROVIDERS: PCP Internal Medicine Adolescent Medicine; Visit Provider Internal Medicine Adolescent Medicine
DX: Z12.31 Encounter for screening mammogram for malignant neoplasm of breast (principal)
CPT/HCPCS: 77063; 77067

== ENCOUNTER → 2021-03-19 09:56 | Outpatient (CLI) | payer MEDICARE, BC, SELFPAY ==
--- NOTE | 2021-03-19 09:59 | XR_ITS ---
PROCEDURE: XR DEXA AXIAL SKELETON CLINICAL HISTORY: OSTEOPOROSIS On prolia shots COMPARISON: No exams were available for comparison FINDINGS: The right hip BMD is 0.557 with a T-score of -2.6. The left hip BMD is 0.706 with a T-score of -1.9. The lumbar spine BMD is 0.957 with a T-score of -0.8. IMPRESSION: This patient is considered osteoporotic according to the World Health Organization criteria. Fracture risk is high. Treatment is advised. Based on these results a follow-up exam is recommended in 1 year. Dictated by: Garrett Phillip MD 03/20/2021 05:33 Garrett Phillip MD in [place] 03/20/2021 05:33
== END ==
PROVIDERS: PCP Internal Medicine Adolescent Medicine; Visit Provider Internal Medicine Adolescent Medicine
DX: Z12.31 Encounter for screening mammogram for malignant neoplasm of breast (principal); M81.0 Age-related osteoporosis without current pathological fracture
CPT/HCPCS: 77080

== ENCOUNTER 2021-04-01 09:58 | Outpatient (CLI) | payer MEDICARE, BC, SELFPAY ==
[2021-04-01 10:30] VITALS: BP 140/77; PULSE 78; RESP 20; TEMP 36.9; O2SAT 95
== END 2021-04-01 10:30 | disposition home or self-care (01) ==
LOC: INF 09:58
PROVIDERS: Visit Provider Internal Medicine Adolescent Medicine
DX: M81.0 Age-related osteoporosis without current pathological fracture (principal)
CPT/HCPCS: 96372; J0897

== ENCOUNTER → 2021-07-29 08:48 | Outpatient (CLI) | payer MEDICARE, BC, SELFPAY ==
[2021-07-29 09:27] LABS: Basophils # 0.1 K/mm3 (0-0.2); Basophils % 1.2 % (0.1-2.0); Eosinophils # 0.3 K/mm3 (0.0-0.4); Hematocrit 37.2 % (37.0-47.0); Hemoglobin 11.9 g/dL (12.2-16.2); Lymphocytes # 1.3 K/mm3 (0.7-4.5); Lymphocytes % 23.9 % (10-50); Mean Corpuscular HGB Conc 31.9 g/dL (31.8-35.4); Mean Corpuscular Hemoglobin 28.8 pg (27.0-31.2); Mean Corpuscular Volume 90.4 fl (81-99); Mean Platelet Volume 7.8 fl (7.4-10.4); Monocytes # 0.3 K/mm3 (0.1-1.0); Monocytes % 5.5 % (1.7-9.3); Neutrophils # 3.5 K/mm3 (1.8-7.8); Neutrophils % 63.4 % (37.0-80.0); Platelet Count 271 K/mm3 (142-424); Red Blood Count 4.11 M/mm3 (4.20-5.40); Red Cell Distribution Width 13.1 % (11.5-17.5); White Blood Count 5.5 K/mm3 (4.8-10.8)
[2021-07-29 10:16] LABS: Alanine Aminotransferase 12 U/L (12-78); Albumin Level 4.3 g/dl (3.5-5.0); Albumin/Globulin Ratio 1.3 (1.1-1.8); Alkaline Phosphatase 58 U/L (38-126); Aspartate Amino Transferase 23 U/L (14-36); Bilirubin,Total 0.3 mg/dl (0.2-1.3); Blood Urea Nitrogen 13 mg/dl (7-17); Calcium 9.7 mg/dl (8.4-10.2); Carbon Dioxide 27 mmol/L (22.0-30.0); Chloride 99 mmol/L (98-107); Chol/HDL Ratio 1.8 (1-3.5); Cholesterol 180 mg/dl (140-200); Estimated Glomerular Filt Rate 54 ml/min (>60); GFR (African American) 65 ML/MIN (>60); Globulin 3.2 g/dL (1.3-3.2); Glucose 101 mg/dl (74-100); HDL Cholesterol 102 mg/dl (40-60); Sodium 136 mmol/L (136-145); Total Protein,Serum 7.5 g/dl (6.3-8.2); Triglycerides 68 mg/dl (30-150); VLDL Cholesterol 14 mg/dL (0-40)
[2021-07-29 10:27] LABS: Direct LDL Cholesterol 49.01 mg/dL (100-129)
[2021-07-29 10:33] LABS: 25-OH Vitamin D, Total 67.8 ng/mL (30-100)
[2021-07-29 10:46] LABS: Thyroid Stimulating Hormone 3.49 uIU/mL (0.465-4.68)
[2021-07-29 11:04] LABS: Vitamin B12 383 pg/mL (239-931)
== END ==
PROVIDERS: Visit Provider Internal Medicine Adolescent Medicine
DX: I25.10 Atherosclerotic heart disease of native coronary artery without angina pectoris (principal); G60.9 Hereditary and idiopathic neuropathy, unspecified; Z79.899 Other long term (current) drug therapy
CPT/HCPCS: 36415; 80053; 80061; 82306; 82607; 84443; 85025

== ENCOUNTER → 2021-08-14 16:13 | Outpatient (CLI) | payer MEDICARE, BC, SELFPAY ==
--- NOTE | 2021-08-14 16:19 | XR_ITS ---
PROCEDURE: XR WRIST LT MIN 3V CLINICAL INDICATION: LT WRIST PAIN COMPARISON: No exams were available for comparison FINDINGS: No fracture or dislocation. No lytic or blastic change. There is normal mineralization. The joint spaces are well-preserved. No significant degenerative/arthritic changes. No erosive changes evident. Other findings:None. IMPRESSION: No acute findings. Dictated by: Garrett Phillip MD 08/14/2021 17:44 Garrett Phillip MD in [place] 08/14/2021 17:44
== END ==
PROVIDERS: PCP Internal Medicine Adolescent Medicine; Visit Provider Internal Medicine Adolescent Medicine
DX: M25.532 Pain in left wrist (principal)
CPT/HCPCS: 73110

== ENCOUNTER 2021-10-08 10:49 | Outpatient (CLI) | payer MEDICARE, BC, SELFPAY ==
[2021-10-08 11:06] VITALS: BP 134/80; PULSE 84; RESP 17; TEMP 36.4; O2SAT 97
== END 2021-10-08 11:07 | disposition home or self-care (01) ==
LOC: INF 10:50
PROVIDERS: PCP Internal Medicine Adolescent Medicine; Visit Provider Internal Medicine Adolescent Medicine
DX: M81.0 Age-related osteoporosis without current pathological fracture (principal)
CPT/HCPCS: 96372; J0897

== ENCOUNTER 2021-11-11 11:33 | Emergency (ER) | payer MEDICARE, BC, SELFPAY ==
--- NOTE | 2021-11-11 11:48 | XR_ITS ---
PROCEDURE: XR SHOULDER LT MIN 2V CLINICAL INDICATION: pain from fall COMPARISON: CR XR SHOULDER LT MIN 2V from 09/14/2019 FINDINGS: There is an old left humeral neck fracture with osteoarthritic changes of the glenohumeral joint and a high-riding humeral head. Compared to the previous study there has been interval healing of the fracture. No acute fracture or dislocation. 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
--- NOTE | 2021-11-11 11:48 | XR_ITS ---
PROCEDURE: XR CERVICAL SPINE 3V CLINICAL INDICATION: pain COMPARISON: No exams were available for comparison FINDINGS: C7 is not well visualized. There is normal alignment to C6. No fracture or dislocation evident of the visualized cervical spine. Facet arthritic changes are present from C3 to see 6. There is mild diffuse osteopenia. There is diffuse vascular calcification. IMPRESSION: No acute findings. Mild facet arthritic changes Dictated by: Garrett Phillip MD 11/11/2021 13:56 Garrett Phillip MD in [place] 11/11/2021 13:56
--- NOTE | 2021-11-11 11:48 | XR_ITS ---
PROCEDURE: XR PELVIS 1-2V CLINICAL INDICATION: pain COMPARISON: No exams were available for comparison TECHNIQUE: XR Pelvis AP View FINDINGS: No fracture or dislocation is evident. No significant degenerative change. No lytic or blastic change. IMPRESSION: No acute findings. Dictated by: Garrett Phillip MD 11/11/2021 13:53 Garrett Phillip MD in [place] 11/11/2021 13:53
--- NOTE | 2021-11-11 11:48 | XR_ITS ---
PROCEDURE: XR ELBOW LT MIN 3V CLINICAL INDICATION: pain COMPARISON: No exams were available for comparison FINDINGS: No fracture or dislocation. No lytic or blastic change. There is normal mineralization. The joint spaces are well-preserved. No significant degenerative/arthritic changes. No erosive changes evident. Other findings:None. IMPRESSION: No acute findings. Dictated by: Garrett Phillip MD 11/11/2021 13:49 Garrett Phillip MD in [place] 11/11/2021 13:49
[2021-11-11 11:49] VITALS: BP 125/73; PULSE 75; RESP 16; TEMP 36.6; O2SAT 96; BMI 23.6
--- NOTE | 2021-11-11 11:49 | HMH.EDFALL ---
ED Disposition Clinical Impression: Left shoulder strain Qualifiers: Encounter type: initial encounter Qualified Code(s): S46.912A - Strain of unspecified muscle, fascia and tendon at shoulder and upper arm level, left arm, initial encounter Cervical strain Qualifiers: Encounter type: initial encounter Qualified Code(s): S16.1XXA - Strain of muscle, fascia and tendon at neck level, initial encounter Sprain of left elbow Qualifiers: Encounter type: initial encounter Qualified Code(s): S53.402A - Unspecified sprain of left elbow, initial encounter Disposition: Home, Self-Care Condition on Discharge: Good Instructions: DI for Muscle Strain, How to Prevent Falls Additional Instructions: follow up PCP if notr better Referrals: Wally Martinez MD [Primary Care Provider] - - Critical Care Critical Care Time: No Attestation: On , the high probability of a clinically significant, sudden or life threatening deterioration of the following system(s) required my full and direct attention, intervention and personal management. The time I documented below is in addition to time spent performing reported procedures but includes the following listed in this critical care notation. Medical Decision Making - Medical Records Medical records reviewed: Yes: I reviewed the patient's medical records. - Rich Inquiry Pt receiving controlled substance: No Vital Signs: 11/11/21 11:49 11/11/21 14:22 Temperature 98 F 98 F Temperature Source Oral Pulse Rate 71 Pulse Rate [Left Radial] 75 Respiratory Rate 16 16 Blood Pressure 121/70 Blood Pressure [Right Arm] 125/73 Blood Pressure Mean [Right Arm] 90 02 Sat by Pulse Oximetry 96 Oxygen Delivery Method Room Air Room Air Fall HPI - General Stated Complaint: AO [id number] fell, shoulder and neck pain Time Seen by Provider: 11/11/21 11:49 Source of Information: Patient Limitations: No Limitations - History of Present Illness HPI Narrative: fall in public bathroom yesterday slip on wATER, C/Ocsp, left shoulder, elvow, pelvis pain, no loc Fall from: standing Loss of consciousness: none Symptoms prior to fall: none Context: tripped/slipped Severity: moderate Associated symptoms (after fall): denies - Related Data Home Medications Medication Instructions Recorded Confirmed Aspirin [Aspirin 81mg EC Tab] 81 mg PO DAILY 10/02/19 11/03/21 Cholecalciferol (Vitd3)/Vit K2 [D3 1 each PO DAILY 10/02/19 11/03/21 + K2 Dots 1,000 Units Tab] docusate sodium 250 mg capsule 250 mg PO DAILY 01/24/20 11/03/21 pregabalin 50 mg capsule 50 mg PO BID cap 01/24/20 11/03/21 Umeclidinium Brm/Vilanterol Tr 1 inh IH DAILY 04/01/20 11/03/21 [Anoro Ellipta 62.5-25 Mcg INH] hydrochlorothiazide 12.5 mg tablet 12.5 mg PO DAILY tab 05/02/21 11/03/21 calcium carbonate 600 mg-vitamin 1 tab PO DAILY 10/22/21 11/03/21 D3 20 mcg (800 unit) chewable tablet fluticasone propionate 50 1 spray INTRANASAL DAILY g 10/22/21 11/03/21 mcg/actuation nasal spray,suspension metoprolol succinate 25 mg 25 mg PO DAILY tab 10/22/21 11/03/21 tablet,extended release 24 hr Previous Rx's Medication Instructions Recorded simvastatin 20 mg tablet See Rx Instructions .ROUTE 07/28/21 .COMPLEX #90 tab nitroglycerin 0.4 mg sublingual 0.4 mg SUBLINGUAL Q5M PRN #20 tab 11/03/21 tablet Allergies Allergy/AdvReac Type Severity Reaction Status Date / Time atorvastatin AdvReac Mild myalgias Verified 11/03/21 11:17 [facility] History - Hepatitis A Screen Attestation statement:: This patient has been screened for Hepatitis A risk factors. Medical History: Reports:: Chronic Obstructive Pulmonary Disease (COPD), Coronary Artery Disease, Gastroesophageal Reflux Disease(GERD), Hyperlipidemia, MRSA, Palpitations Denies:: Cancer, Diabetes Mellitus Type 1, Diabetes Mellitus Type 2, Hypertension, Internal Pacemaker, Seizures Other Medical History: Reports: Cataracts, Sinus Problems, Other
[2021-11-11 14:22] VITALS: BP 121/70; PULSE 71; RESP 16; TEMP 36.6; O2SAT 97
== END 2021-11-11 14:23 | disposition home or self-care (01) ==
PROVIDERS: Emergency Provider Emergency Medicine; PCP Internal Medicine Adolescent Medicine
DX: S46.912A Strain of unspecified muscle, fascia and tendon at shoulder and upper arm level, left arm, initial encounter (principal); S16.1XXA Strain of muscle, fascia and tendon at neck level, initial encounter; S43.402A Unspecified sprain of left shoulder joint, initial encounter; I25.10 Atherosclerotic heart disease of native coronary artery without angina pectoris; K21.9 Gastro-esophageal reflux disease without esophagitis; E78.5 Hyperlipidemia, unspecified; J44.9 Chronic obstructive pulmonary disease, unspecified; W01.0XXA Fall on same level from slipping, tripping and stumbling without subsequent striking against object, initial encounter; Y92.89 Other specified places as the place of occurrence of the external cause
CPT/HCPCS: 72040; 72170; 73030; 73080; 99282

== ENCOUNTER → 2022-01-26 14:51 | Outpatient (CLI) | payer MEDICARE, BC, SELFPAY ==
--- NOTE | 2022-01-26 14:58 | XR_ITS ---
FINAL REPORT CLINICAL HISTORY: CHEST WALL PAIN, no injury, former smoker. FINDINGS: LEFT RIB SERIES Two views of the left ribs show no fractures. There is no pneumothorax or pleural fluid collection. Frontal chest radiograph is unremarkable. IMPRESSION: Negative left rib series. No pneumothorax. Reviewed, Interpreted and Dictated by Mino Bull III, MD Transcribed by Brittany Perez Authenticated by Mino Bull III, MD on 01/26/2022 04:40:58 PM [facility]
--- NOTE | 2022-01-26 14:58 | XR_ITS ---
FINAL REPORT CLINICAL HISTORY: CHEST WALL PAIN, no known injury, former smoker. FINDINGS: Two views of the chest were obtained. The heart size and pulmonary vascularity are within normal limits. The mediastinum is normal. There is mild scarring present. There is no pneumothorax. There is a chronic fracture of the left proximal humerus. There are moderate chronic midthoracic compression fractures. IMPRESSION: No active cardiopulmonary disease. Reviewed, Interpreted and Dictated by Mino Bull III, MD Transcribed by Brittany Perez Authenticated by Mino Bull III, MD on 01/26/2022 04:41:[address] [facility]
--- NOTE | 2022-01-26 14:58 | XR_ITS ---
FINAL REPORT CLINICAL HISTORY: CHEST WALL PAIN, no known injury. former smoker FINDINGS: RIGHT RIB SERIES 4 views of the right ribs show no fractures. There is no pneumothorax or pleural fluid collection. Frontal chest radiograph is unremarkable. IMPRESSION: Negative right rib series. No pneumothorax. Reviewed, Interpreted and Dictated by Mino Bull III, MD Transcribed by Brittany Perez Authenticated by Mino Bull III, MD on 01/26/2022 04:40:42 PM [facility]
== END ==
LOC: RAD 14:53
PROVIDERS: PCP Internal Medicine Adolescent Medicine; Visit Provider Internal Medicine Adolescent Medicine
DX: R07.89 Other chest pain (principal)
CPT/HCPCS: 71046; 71100

== ENCOUNTER 2022-01-30 01:43 | Inpatient (IN) | payer MEDICARE, BC, SELFPAY ==
[2022-01-30] VITALS (32 sets, daily range): BP systolic 81–143; BP diastolic 48–79; PULSE 64–100; RESP 10–20; TEMP 36.4–43; O2SAT 91–97; BMI 24.1; BMI 22.9; BMI 22.8; BMI 22.7
--- NOTE | 2022-01-30 01:45 | CT_ITS ---
PROCEDURE INFORMATION: Exam: CT Abdomen And Pelvis With Contrast Exam date and time: 01/30/2022 2:47 AM Age: 76 years old Clinical indication: Vomiting; Abdominal pain; Additional info: Abdominal pain w/ vomiting TECHNIQUE: Imaging protocol: Computed tomography of the abdomen and pelvis with contrast. Radiation optimization: All CT scans at this facility use at least one of these dose optimization techniques: automated exposure control; mA and/or kV adjustment per patient size (includes targeted exams where dose is matched to clinical indication); or iterative reconstruction. Contrast material: ISOVUE; Contrast volume: 75 ml; Contrast route: IV; COMPARISON: CT ABDOMEN PELVIS WO CON 07/14/2019 11:03 PM FINDINGS: Tubes, catheters and devices: There is a line of surgical kings seen in the right lower quadrant consistent with prior small bowel enterotomy.. Lungs: Chronic interstitial changes are seen in the lung bases bilaterally. Heart: Extensive coronary atherosclerosis is noted. Liver: Normal. No mass. Gallbladder and bile ducts: The patient is status post cholecystectomy. Pancreas: Normal. No ductal dilation. Spleen: Normal. No splenomegaly. Adrenal glands: Normal. No mass. Kidneys and ureters: Normal. No hydronephrosis. Stomach and bowel: There are multiple distended loops of small bowel seen in the mid and upper abdomen. These measure up to 4 cm in diameter. The very distal small bowel is decompressed. The transition point is not identified. Appendix: No evidence of appendicitis. Intraperitoneal space: There is some edema within the mesentery within the right lower quadrant. Vasculature: Unremarkable. No abdominal aortic aneurysm. Lymph nodes: Unremarkable. No enlarged lymph nodes. Urinary bladder: Unremarkable as visualized. Reproductive: The patient is status post hysterectomy. Bones/joints: Unremarkable. No acute fracture. Soft tissues: Unremarkable. IMPRESSION: 1. High-grade mid to distal small bowel obstruction as described. The transition zone is not identified. Some edema is seen in the right lower quadrant mesentery. The very distal small bowel is decompressed as is the colon. No obvious perforation or abscess is identified. 2. Coronary atherosclerosis. 3. Status post hysterectomy and cholecystectomy.
--- NOTE | 2022-01-30 01:51 | XR_ITS ---
PROCEDURE INFORMATION: Exam: XR Chest Exam date and time: 01/30/2022 2:35 AM Age: 76 years old Clinical indication: Cough TECHNIQUE: Imaging protocol: XR of the chest. Views: 2 views. COMPARISON: CR XR CHEST 2V 01/26/2022 3:01 PM FINDINGS: Lungs: Chronic interstitial changes are present bilaterally. No focal infiltrates are identified. Pleural spaces: Unremarkable. No pleural effusion. No pneumothorax. Heart/Mediastinum: Unremarkable. No cardiomegaly. Vasculature: Tortuosity of the aorta is present. Bones/joints: Unremarkable. IMPRESSION: Chronic interstitial changes without evidence of acute infiltrate.
[2022-01-30 02:01] LABS: Microscopic, Urine URINE MICROSCOPIC (MICROSCOPIC)
[2022-01-30 02:05] LABS: Appearance,Urine CLEAR (Clear); Blood, Urine Negative (Negative); Color,Urine YELLOW (Yellow); Glucose,Urine (UA) Negative (Negative); Ketones,Urine TRACE (Negative); Leukocyte Esterase,Urine Negative (Negative); Nitrate,Urine Negative (Negative); Protein,Urine TRACE (Negative); Specific Gravity, Urine >= 1.030 (1.005-1.030); Urobilinogen,Urine 0.2 EU/dl (0.2)
[2022-01-30 02:09] LABS: Coronavirus 19, PCR Not Detected (NotDetected); Influenza A, PCR Not Detected (NotDetected); Influenza B, PCR Not Detected (NotDetected)
[2022-01-30 02:10] LABS: Basophils % 0.6 % (0.1-2.0); Eosinophils % 0.4 % (0.1-12.0); Hematocrit 39.6 % (37.0-47.0); Hemoglobin 12.8 g/dL (12.2-16.2); Lymphocytes # 0.4 K/mm3 (0.7-4.5); Lymphocytes % 6.4 % (10-50); Mean Corpuscular HGB Conc 32.2 g/dL (31.8-35.4); Mean Corpuscular Hemoglobin 29.3 pg (27.0-31.2); Mean Corpuscular Volume 91.1 fl (81-99); Mean Platelet Volume 9.2 fl (7.4-10.4); Monocytes # 0.3 K/mm3 (0.1-1.0); Monocytes % 5.5 % (1.7-9.3); Neutrophils # 5.1 K/mm3 (1.8-7.8); Platelet Count 250 K/mm3 (142-424); Red Blood Count 4.35 M/mm3 (4.20-5.40); Red Cell Distribution Width 14.2 % (11.5-17.5); White Blood Count 5.9 K/mm3 (4.8-10.8)
[2022-01-30 02:14] LABS: Alanine Aminotransferase 16 U/L (12-78); Albumin Level 4.4 g/dl (3.5-5.0); Albumin/Globulin Ratio 1.5 (1.1-1.8); Alkaline Phosphatase 73 U/L (38-126); Aspartate Amino Transferase 28 U/L (14-36); Bilirubin,Total 0.8 mg/dl (0.2-1.3); Blood Urea Nitrogen 34 mg/dl (7-17); Calcium 9.4 mg/dl (8.4-10.2); Carbon Dioxide 24 mmol/L (22.0-30.0); Chloride 99 mmol/L (98-107); Creatinine Clearance Estimated 47 mL/min (50-200); Estimated Glomerular Filt Rate 54 ml/min (>60); GFR (African American) 65 ML/MIN (>60); Glucose 131 mg/dl (74-100); Lactic Acid 1.4 mmol/L (0.7-2.1); Lipase 45 U/L (23-300); Sodium 132 mmol/L (136-145); Total Protein,Serum 7.4 g/dl (6.3-8.2)
[2022-01-30 02:15] LABS: MANUAL DIFFERENTIAL MANUAL DIFFERENTIAL (MANUAL DIFF)
[2022-01-30 02:16] LABS: Bilirubin,Urine Negative (Negative)
[2022-01-30 02:20] LABS: C-Reactive Protein 37.9 mg/L (0-4)
[2022-01-30 02:33] LABS: Procalcitonin 0.348 ng/mL (0.0-2.0)
[2022-01-30 02:36] LABS: Amorphous Sediment,Urine 1+ /lpf; Bacteria,Urine 1+ /lpf; Mucus,Urine 1+ /lpf
--- NOTE | 2022-01-30 02:36 | HMH.EDNVD ---
ED Disposition Clinical Impression: SBO (small bowel obstruction) CAD (coronary artery disease) Qualifiers: Coronary Disease-Associated Artery/Lesion type: unspecified vessel or lesion type [place] vs. transplanted heart: [place] heart Associated angina: unspecified whether angina present Qualified Code(s): I25.10 - Atherosclerotic heart disease of [place] coronary artery without angina pectoris Disposition: Admitted As Inpatient Condition on Discharge: Fair Instructions: DI for Diarrhea and Traveler's Diarrhea -- Adult, DI for Diarrhea and Traveler's Diarrhea -- Child, DI for Nausea -- Adult, DI for Nausea -- Child Referrals: Wally Martinez MD [Primary Care Provider] - - Critical Care Critical Care Time: No Attestation: On 01/30/22, the high probability of a clinically significant, sudden or life threatening deterioration of the following system(s) required my full and direct attention, intervention and personal management. The time I documented below is in addition to time spent performing reported procedures but includes the following listed in this critical care notation. Medical Decision Making - Medical Records Medical records reviewed: Yes: I reviewed the patient's medical records. - Rich Inquiry Pt receiving controlled substance: No Vital Signs: 01/30/22 01:56 Temperature 98.3 F Temperature Source Oral Pulse Rate [Apical] 100 H Respiratory Rate 18 Blood Pressure [Right Arm] 143/79 H Blood Pressure Mean [Right Arm] 100 Blood Pressure Source [Right Arm] Automatic Cuff Blood Pressure Position [Right Arm] Sitting 02 Sat by Pulse Oximetry 94 L Oxygen Delivery Method Room Air - Lab Data Lab results reviewed: Yes: I reviewed the patient's lab results. Lab Results 01/30/22 01:50: WBC 5.9, RBC 4.35, Hgb 12.8, Hct 39.6, MCV 91.1, MCH 29.3, MCHC 32.2, RDW 14.2, Plt Count 250, MPV 9.2, Neut % (Auto) 87.0 H, Lymph % (Auto) 6.4 L, [place] % (Auto) 5.5, Eos % (Auto) 0.4, Baso % (Auto) 0.6, Neut # (Auto) 5.1, Lymph # (Auto) 0.4 L, [place] # (Auto) 0.3, Eos # (Auto) 0.0, Baso # (Auto) 0.0, Total Counted 100, Neutrophils % (Manual) 81 H, Lymphocytes % (Manual) 14, Monocytes % (Manual) 4, Basophils % (Manual) 1.0, Platelet Estimate Normal, RBC Morphology Not Reportable, Stomatocytes 1+, ESR 32 H 01/30/22 01:50: Sodium 132 L, Potassium 4.0, Chloride 99, Carbon Dioxide 24, Anion Gap 13.0, BUN 34 H, Creatinine 1.00, Estimated Creat Clear 47, Estimated GFR 54 L, Est GFR ( Amer) 65, Glucose 131 H, Calcium 9.4, Total Bilirubin 0.8, AST 28, ALT 16, Alkaline Phosphatase 73, C-Reactive Protein 37.9 H, Total Protein 7.4, Albumin 4.4, Globulin 3.0, Albumin/Globulin Ratio 1.5, Lipase 45 01/30/22 01:50: Lactate 1.4 01/30/22 01:50: Procalcitonin 0.348 01/30/22 01:50: Urine Color Yellow, Urine Appearance Clear, Urine pH 6.0, Ur Specific [place] >= 1.030, Urine Protein Trace, Urine Glucose (UA) Negative, Urine Ketones Trace, Urine Blood Negative, Urine Nitrate Negative, Urine Bilirubin Negative, Urine Urobilinogen 0.2, Ur Leukocyte Esterase Negative, Urine RBC 3-5, Urine WBC 3-5, Ur Squamous Epith Cells 3-5, Amorphous Sediment 1+, Urine Bacteria 1+, Hyaline Casts 3-5, Urine Mucus 1+ 01/30/22 01:50: Troponin I < 0.01 01/30/22 02:05: SARS-CoV-2 (PCR) Not detected, Influenza A Untype (PCR) Not detected, Influenza Type B (PCR) Not detected Result diagrams: 01/30/22 01:50 01/30/22 01:50 Orders (Tests/Meds): ED MEDICATIONS Generic Name Dose Route Start Last Admin Trade Name Freq PRN Reason Stop Dose Admin Lactated Ringer's 1,000 mls @ 999 mls/hr 01/30/22 02:00 01/30/22 02:45 Lactated Ringer's 1000 Ml Bag IV 01/30/22 03:00 999 mls/hr .Q1H1M ANGELINE Administration Discontinued Medications Generic Name Dose Route Start Last Admin Trade Name Freq PRN Reason Stop Dose Admin Iopamidol 75 ml 01/30/22 02:58 01/30/22 02:59 Iopamidol-370 (76%);100ml Bottle IV 01/30/22 02:59 75 ml ONCE ONE Administration Ondansetron
[2022-01-30 02:45] LABS: Erythrocyte Sedimentation Rate 32 mm/hr (0-30)
[2022-01-30 03:25] LABS: Lymphocytes % 14 % (10-50); Monocytes % 4 % (2-9); Neutrophils % 81 % (42-76); Total Cells Counted 100
[2022-01-30 03:26] LABS: Platelet Estimate Normal; Stomatocytes 1+
[2022-01-30 03:28] LABS: Troponin I < 0.01 ng/ml (0.00-0.034)
--- NOTE | 2022-01-30 04:32 | PC.NURSE ---
speaking with GIBRAN at this time
--- NOTE | 2022-01-30 04:32 | PC.NURSE ---
House called for bed
--- NOTE | 2022-01-30 05:13 | PC.NURSE ---
pt arrived to floor at this time via wheelchair
--- NOTE | 2022-01-30 06:42 | HMH.HP ---
*Admission Date: 01/30/22 *Chief complaint: nausea and vomiting *History of present illness: 76-year-old female with longstanding history of small bowel obstruction. Had surgery about 18 years ago for an obstruction but has had a few repeat episodes since. Most recent was 3 years ago. No surgery since her initial procedure. She presented to the ER yesterday evening after having nausea and vomiting for 2 to 3 days. No diarrhea. No blood in vomit or stool. Imaging showed small bowel obstruction. Labs relatively unremarkable. Decision made to admit for bowel rest and surgery consult. On interview this morning, she states that she is feeling somewhat better. Still sore in her belly. No nausea today. Is somewhat hungry. No vomiting overnight. Afebrile and hemodynamically stable. [facility] History I have reviewed the patient's past medical history: Yes Medical History: Reports:: Chronic Obstructive Pulmonary Disease (COPD), Coronary Artery Disease, Gastroesophageal Reflux Disease(GERD), Hyperlipidemia, Palpitations Denies:: Cancer, Diabetes Mellitus Type 1, Diabetes Mellitus Type 2, Hypertension, Internal Pacemaker, MRSA, Seizures *Have you ever received a pneumonia vaccine?: Yes (unknown when had) *Have you received a flu vaccine this season?: Yes Other Medical History: Reports: Cataracts, Sinus Problems, Other Laterality Cases: Left: Arthroscopy Shoulder, Other Other Surgeries: Yes: No Previous Surgery, Angioplasty, Cardiac Catheterization, Cholecystectomy, Colonoscopy, Coronary Stent, Dilation and Curettage, EGD, Hernia Repair, Hysterectomy-Total, Hysterectomy-Partial, Tubal Ligation, Other. No: Pacemaker Amputation: No Fractures: Yes (lt shoulder (NO SURGERY)) - *Social History Last grade of school completed: 7th or 8th Smoking Status: Former smoker Tobacco Type: cigarettes # Packs/Day (cigarettes): 1 #Yrs smoked (if former smoker): 50 Smoking End Date: 03/2021 Alcohol Intake: never Alcohol Intake Frequency:: a few times a month Substance Use Type: denies use *Occupational Status:: retired Housing: other Household Members: other *Travel in the last 8 weeks: None Family Hx:: Cancer, Coronary Artery Disease, Heart Attack Review of Systems - Review of Systems Review of systems:: pertinent systems reviewed and negative unless documented below (14 point review of systems performed, pertinent positives and negatives as per HPI) - *Neurologic Denies headache(s), Denies seizure-like activity Meds Home Medications Medication Instructions Recorded Confirmed Type Cholecalciferol (Vitd3)/Vit K2 [D3 1 tab PO DAILY 10/02/19 01/30/22 History + K2 Dots 1,000 Units Tab] docusate sodium 250 mg capsule 250 mg PO DAILY 01/24/20 01/30/22 History Umeclidinium Brm/Vilanterol Tr 1 inh IH DAILY 04/01/20 01/30/22 History [Anoro Ellipta 62.5-25 Mcg INH] hydrochlorothiazide 12.5 mg tablet 12.5 mg PO DAILY tab 05/02/21 01/30/22 History calcium carbonate 600 mg-vitamin 1 tab PO DAILY 10/22/21 01/30/22 History D3 20 mcg (800 unit) chewable tablet fluticasone propionate 50 1 spray INTRANASAL DAILY g 10/22/21 01/30/22 History mcg/actuation nasal spray,suspension metoprolol succinate 25 mg 25 mg PO DAILY tab 10/22/21 01/30/22 History tablet,extended release 24 hr nitroglycerin 0.4 mg sublingual 0.4 mg SUBLINGUAL Q5M PRN #20 tab 11/03/21 01/30/22 Rx tablet Aspirin [Adult Aspirin Regimen] 81 mg PO DAILY 01/30/22 01/30/22 History Simvastatin 20 mg PO DAILY 01/30/22 01/30/22 History Allergies Allergy/AdvReac Type Severity Reaction Status Date / Time atorvastatin AdvReac Mild myalgias Verified 01/21/22 10:11 Exam Vital signs and Labs for Last 24 Hours: Temp Pulse Resp BP Pulse Ox 98.2 F 89 20 140/70 91 L 01/30/22 05:04 01/30/22 06:29 01/30/22 05:04 01/30/22 05:04 01/30/22 06:29 Laboratory Results - last 24 hr 01/30/22 01:50: WBC 5.9, RBC 4.35, Hgb 12.8, Hct 39.6, MCV 91.1, MCH 29.3, MCHC 32
--- NOTE | 2022-01-30 07:00 | HMH.PHAVTE ---
[facility] Pharmacy VTE Monitoring - Patient Demographics Admission date: 01/30/22 Report Date: 01/30/22 Time: 07:00 Allergies/Adverse Reactions: Patient Allergies atorvastatin Adverse Reaction (Mild, Verified 01/21/22 10:11) myalgias Height: 1.65 m Weight: 62.142 kg Patient Problems: Current Active Problems (Last Updated 10/25/19 @ 13:30 by Amanda Sellers RN) Small bowel obstruction (Acute) CAD (coronary artery disease) (Chronic) - VTE Risk Labs: VTE Related Lab Results Hgb 12.8 g/dL (12.2-16.2) 01/30/22 01:50 Hct 39.6 % (37.0-47.0) 01/30/22 01:50 Plt Count 250 K/mm3 (142-424) 01/30/22 01:50 BUN 34 mg/dl (7-17) H 01/30/22 01:50 Creatinine 1.00 mg/dl (0.52-1.04) 01/30/22 01:50 Estimated Creat Clear 47 mL/min (50-200) 01/30/22 01:50 Was VTE Risk Assessment Performed: Yes VTE Score: 3 VTE Risk Level: Low Risk Clinical Trial Participant: No - Prophylaxis VTE Prophylaxis Ordered?: Yes Types of VTE Prophylaxis: TEDS Knee High Location of Applied Device: Not Applicable
--- NOTE | 2022-01-30 07:07 | HMH.PHAINT ---
HOME MEDICATION LIST VERIFIED USING LIST FROM [facility]
[2022-01-30 08:31] LABS: Troponin I < 0.01 ng/ml (0.00-0.034)
--- NOTE | 2022-01-30 09:02 | HMH.GSCON ---
*Admission Date: 01/30/22 *Reason for consult:: Small bowel obstruction *History of present illness: This is a 76-year-old female seen in consultation from Dr. Delaney for evaluation regarding small bowel obstruction. Please see HPI from admission H&P forwarded below: 76-year-old female with longstanding history of small bowel obstruction. Had surgery about 18 years ago for an obstruction but has had a few repeat episodes since. Most recent was 3 years ago. No surgery since her initial procedure. She presented to the ER yesterday evening after having nausea and vomiting for 2 to 3 days. No diarrhea. No blood in vomit or stool. Imaging showed small bowel obstruction. Labs relatively unremarkable. Decision made to admit for bowel rest and surgery consult. On interview this morning, she states that she is feeling somewhat better. Still sore in her belly. No nausea today. Is somewhat hungry. No vomiting overnight. Afebrile and hemodynamically stable. Review of Systems - Constitutional Denies chills - *Cardiovascular Denies chest pain - *Respiratory Denies cough - *Gastrointestinal Reports abdominal pain, Reports nausea, Reports vomiting - *Neurologic Denies headache(s), Denies seizure-like activity [facility] History Medical History: Reports:: Chronic Obstructive Pulmonary Disease (COPD), Coronary Artery Disease, Gastroesophageal Reflux Disease(GERD), Hyperlipidemia, Palpitations Denies:: Cancer, Diabetes Mellitus Type 1, Diabetes Mellitus Type 2, Hypertension, Internal Pacemaker, MRSA, Seizures *Have you ever received a pneumonia vaccine?: Yes (unknown when had) *Have you received a flu vaccine this season?: Yes Other Medical History: Reports: Cataracts, Sinus Problems, Other Laterality Cases: Left: Arthroscopy Shoulder, Other Other Surgeries: Yes: No Previous Surgery, Angioplasty, Cardiac Catheterization, Cholecystectomy, Colonoscopy, Coronary Stent, Dilation and Curettage, EGD, Hernia Repair, Hysterectomy-Total, Hysterectomy-Partial, Tubal Ligation, Other. No: Pacemaker Amputation: No Fractures: Yes (lt shoulder (NO SURGERY)) - *Social History Last grade of school completed: 7th or 8th Smoking Status: Former smoker Tobacco Type: cigarettes # Packs/Day (cigarettes): 1 #Yrs smoked (if former smoker): 50 Smoking End Date: 03/2021 Alcohol Intake: never Alcohol Intake Frequency:: a few times a month Substance Use Type: denies use *Occupational Status:: retired Housing: other Household Members: other *Travel in the last 8 weeks: None Family Hx:: Cancer, Coronary Artery Disease, Heart Attack Meds Home Medications Medication Instructions Recorded Confirmed Type Cholecalciferol (Vitd3)/Vit K2 [D3 1 tab PO DAILY 10/02/19 01/30/22 History + K2 Dots 1,000 Units Tab] docusate sodium 250 mg capsule 250 mg PO DAILY 01/24/20 01/30/22 History Umeclidinium Brm/Vilanterol Tr 1 inh IH DAILY 04/01/20 01/30/22 History [Anoro Ellipta 62.5-25 Mcg INH] hydrochlorothiazide 12.5 mg tablet 12.5 mg PO DAILY tab 05/02/21 01/30/22 History calcium carbonate 600 mg-vitamin 1 tab PO DAILY 10/22/21 01/30/22 History D3 20 mcg (800 unit) chewable tablet fluticasone propionate 50 1 spray INTRANASAL DAILY g 10/22/21 01/30/22 History mcg/actuation nasal spray,suspension metoprolol succinate 25 mg 25 mg PO DAILY tab 10/22/21 01/30/22 History tablet,extended release 24 hr nitroglycerin 0.4 mg sublingual 0.4 mg SUBLINGUAL Q5M PRN #20 tab 11/03/21 01/30/22 Rx tablet Aspirin [Adult Aspirin Regimen] 81 mg PO DAILY 01/30/22 01/30/22 History Simvastatin 20 mg PO DAILY 01/30/22 01/30/22 History Allergies Allergy/AdvReac Type Severity Reaction Status Date / Time atorvastatin AdvReac Mild myalgias Verified 01/21/22 10:11 Exam Vital signs and Labs for Last 24 Hours: Temp Pulse Resp BP Pulse Ox 98.7 F 84 16 114/57 L 94 L 01/30/22 08:00 01/30/22 08:00 01/30/22 08:00 01/30/22 08:00 01/30/22 08:0
--- NOTE | 2022-01-30 10:43 | P.PN_ITS ---
[facility] Anesthesia Checklist - Patient Identification Patient Identification: Arm Band - Structural Data Admitted From: Inpatient Planned Operative Procedure/s: Ex. lap Consent for Planned Operative Procedure(s) Verified: Yes - NPO Status Verified Time NPO: 00:00 - Additional verifications Anesthesia Reactions: No - Airway Assessment C-Spine Mobility Assessed: Yes TMJ Mobility Assessed: Yes Dentition: Edentulous - Neurological Assessment Level of Consciousness: Awake Hx Seizures: No Numbness or tingling in extremities: No - Anesthesia Plan Anesthesia Risk discussed: Yes Anesthesia Plan: Verified ASA Class: III (III E) Anesthesia Type: General [facility] History I have reviewed the patient's past medical history: Yes Medical History: Reports:: Chronic Obstructive Pulmonary Disease (COPD), Coronary Artery Disease, Gastroesophageal Reflux Disease(GERD), Hyperlipidemia, Hypertension Denies:: Cancer, Diabetes Mellitus Type 1, Diabetes Mellitus Type 2, Internal Pacemaker, MRSA, Seizures *Have you ever received a pneumonia vaccine?: Yes (unknown when had) *Have you received a flu vaccine this season?: Yes Other Medical History: Reports: Cataracts, Sinus Problems, Other Anesthesia experience/problems:: None Laterality Cases: Left: Arthroscopy Shoulder, Other Other Surgeries: Yes: No Previous Surgery, Angioplasty, Cardiac Catheterization, Cholecystectomy, Colonoscopy, Coronary Stent, Dilation and Curettage, EGD, Hernia Repair, Hysterectomy-Total, Hysterectomy-Partial, Tubal Ligation, Other. No: Pacemaker Amputation: No Fractures: Yes (lt shoulder (NO SURGERY)) - *Social History Last grade of school completed: 7th or 8th Smoking Status: Former smoker Tobacco Type: cigarettes # Packs/Day (cigarettes): 1 #Yrs smoked (if former smoker): 50 Smoking End Date: 03/2021 Alcohol Intake: never Alcohol Intake Frequency:: a few times a month Substance Use Type: denies use *Occupational Status:: retired Housing: other Household Members: other *Travel in the last 8 weeks: None Family Hx:: Cancer, Coronary Artery Disease, Heart Attack
--- NOTE | 2022-01-30 13:56 | HMH.OPNOTE ---
Date of procedure: 01/30/22 Pre-op Diagnosis:: Small bowel obstruction Post-op Diagnosis:: Same Procedure performed:: Exploratory laparotomy with extensive lysis of adhesions Biopsy of nodularity low abdominal wall consistent with prior mesh placement Surgeon:: Angel Hickman MD Business Development Specialist(s):: Liv Anesthesia: GETA Estimated blood loss (mL): 25 Operative findings:: Significant distention of proximal and mid small bowel Dense adhesions throughout mid and distal small bowel Prior small bowel anastomosis in mid/distal small bowel with significant distention No areas of sarah ischemia Nodular density consistent with prior mesh placement along lower midline incision (biopsy obtained) Operative note:: After informed consent was obtained the patient was taken to the operating room and placed in the supine position. General anesthesia was induced and her abdomen was prepped and draped in a sterile fashion. A midline incision was made along her prior well-healed scar status post remote exploratory laparotomy with partial small bowel resection. The abdomen was carefully entered sharply. Dense adhesions along the anterior abdominal wall were carefully taken down with combination of blunt dissection, sharp dissection with Metzenbaum scissors, and electrocautery. Multiple loops of dilated proximal and mid small bowel were confirmed. The small bowel was carefully elevated. Dense adhesions throughout the mid/distal small bowel were confirmed. The small bowel was densely adhered deep within the pelvis with multiple loops of frozen bowel . As the small bowel was elevated the adhesions were taken down with Metzenbaum scissors and with blunt dissection. The dissection continued deep within the pelvis and then approaching the right lower quadrant until the colon was encountered. A prior anastomosis of the mid/distal small bowel was confirmed. No obvious perforation or sarah ischemia was confirmed. A portion of the fluid within the proximal and mid small bowel was carefully maneuvered back into the stomach for suctioning. The nasogastric tube was confirmed to be within the mid gastric lumen. The abdominal cavity was thoroughly irrigated. Fascia was then closed with running #2 Novafil and skin was then stapled. Dressings were applied and the patient was transferred recovery in stable condition. Condition: stable Disposition: PACU Specimens:: Intra-abdominal nodular mass consistent with mesh along inferior margin of prior incision (lower abdomen) Complications:: No immediate
--- NOTE | 2022-01-30 14:01 | P.PN_ITS ---
[facility] Anesthesia Record Part I Intake, IV Amount: 1,100 Estimated blood loss (mL): 20 Urine output (mL): 300 Blood Pressure: 81/50 SaO2: 93 Pulse Rate: 93 Respiratory Rate: 16 Temperature: 97.6 F Patient is:: Drowsy Stable to PACU at:: 13:57
--- NOTE | 2022-01-30 15:35 | PC.NURSE ---
1425 Elizabeth Sibley CRNA at bedside. Pt drowsy, follows simple commands per BASHIR Tlobert. BASHIR Tolbert recommended that pt have continuous pulse ox monitoring until fully awake and maintain oxygen sats on room air. RN provided this information in detailed report provided to L.King med/surgical manager. No new orders given at this time from BASHIR Tolbert.
--- NOTE | 2022-01-30 15:47 | SUR.PHASEI ---
1450 Detailed report provided to jessica Grande/surgical dressing maker. Recommendations from BASHIR Tolbert passed along to jessica Montalvo/surgical dressing maker. [id number] Pt transported to med/surg floor on bed with 5L oxygen via simple mask. Pt A&O and aware of what is going on. Pt denies any pain and nausea. Pulse ox continuous monitor placed on pt's left middle finger. Pt left in stable condition. jessica Grande/surgical dressing maker at pt's bedside.
[2022-01-30 16:32] LABS: Microscopic,Cath URINE MICROSCOPIC (MICROSCOPIC)
[2022-01-30 17:26] LABS: Appearance,Urine/Cath CLEAR (Clear); Bilirubin,Cath Negative (Negative); Blood, Urine/Cath Negative (Negative); Color,Urine/Cath YELLOW (Yellow); Glucose,Urine/Cath (UA) Negative (Negative); Ketones,Urine/Cath TRACE (Negative); Leukocyte Esterase,Cath Negative (Negative); Nitrate,Cath Negative (Negative); Protein,Urine/Cath Negative (Negative); Urobilinogen,Cath 0.2 EU/dl (0.2)
[2022-01-31] VITALS (25 sets, daily range): BP systolic 90–130; BP diastolic 51–84; PULSE 74–108; RESP 13–22; TEMP 36.4–37.2; O2SAT 90–98; BMI 23.7
--- NOTE | 2022-01-31 06:46 | PC.NURSE ---
Patient rested well throughout shift. Patient has DESK MAKER and dosed self 9 times throughout night total of 9mg of morphine received this shift. Patient vitals are WNL. will continue to monitor.
[2022-01-31 07:01] LABS: Anion Gap 9.9 mEq/L (5-15); Blood Urea Nitrogen 34 mg/dl (7-17); Calcium 7.6 mg/dl (8.4-10.2); Carbon Dioxide 26 mmol/L (22.0-30.0); Chloride 101 mmol/L (98-107); Creatinine Clearance Estimated 38 mL/min (50-200); Estimated Glomerular Filt Rate 40 ml/min (>60); GFR (African American) 48 ML/MIN (>60); Glucose 79 mg/dl (74-100); Potassium 3.9 mmoL/L (3.5-5.1); Sodium 133 mmol/L (136-145)
[2022-01-31 07:27] LABS: Basophils % 0.2 % (0.1-2.0); Eosinophils % 0.3 % (0.1-12.0); Hematocrit 30.6 % (37.0-47.0); Lymphocytes # 0.5 K/mm3 (0.7-4.5); Lymphocytes % 7.5 % (10-50); Mean Corpuscular HGB Conc 32.7 g/dL (31.8-35.4); Mean Corpuscular Hemoglobin 29.6 pg (27.0-31.2); Mean Corpuscular Volume 90.5 fl (81-99); Monocytes # 0.2 K/mm3 (0.1-1.0); Monocytes % 2.8 % (1.7-9.3); Neutrophils # 5.7 K/mm3 (1.8-7.8); Neutrophils % 89.1 % (37.0-80.0); Platelet Count 202 K/mm3 (142-424); Red Blood Count 3.38 M/mm3 (4.20-5.40); Red Cell Distribution Width 14.7 % (11.5-17.5); White Blood Count 6.4 K/mm3 (4.8-10.8)
[2022-01-31 07:44] LABS: MANUAL DIFFERENTIAL MANUAL DIFFERENTIAL (MANUAL DIFF)
[2022-01-31 08:53] LABS: Eosinophils % 1 % (0-3); Lymphocytes % 15 % (10-50); Monocytes % 3 % (2-9); Neutrophils % 73 % (42-76); Platelet Estimate Normal; RBC Morphology Normal; Total Cells Counted 100
--- NOTE | 2022-01-31 09:16 | HMH.ACPN2 ---
Internal Medicine - PN: Subj *Date: 01/31/22 *Time: 09:16 Interval history: Patient is awake, alert, oriented x3. Blood pressure seems to be lower this morning. However clinically patient looks very good and is alert as noted. Does not feel fatigued, notes that her abdomen hurts but she thinks this is expected from her surgical outcome. NG tube in the right nostril noted. Exam Vital signs and Labs for Last 24 Hours: Temp Pulse Resp BP Pulse Ox 97.9 F 89 22 103/51 L 96 01/31/22 08:00 01/31/22 08:00 01/31/22 08:00 01/31/22 08:00 01/31/22 08:00 Laboratory Results - last 24 hr 01/30/22 12:09: Urine Color Yellow, Urine Appearance Clear, Urine pH 6.0, Ur Specific [place] 1.010, Urine Protein Negative, Urine Glucose (UA) Negative, Urine Ketones Trace, Urine Blood Negative, Urine Nitrate Negative, Urine Bilirubin Negative, Urine Urobilinogen 0.2, Ur Leukocyte Esterase Negative, Urine RBC None, Urine WBC None, Ur Squamous Epith Cells None, Urine Bacteria None 01/31/22 06:40: WBC 6.4, RBC 3.38 L, Hgb 10.0 L, Hct 30.6 L, MCV 90.5, MCH 29.6, MCHC 32.7, RDW 14.7, Plt Count 202, MPV 10.0, Neut % (Auto) 89.1 H, Lymph % (Auto) 7.5 L, [place] % (Auto) 2.8, Eos % (Auto) 0.3, Baso % (Auto) 0.2, Neut # (Auto) 5.7, Lymph # (Auto) 0.5 L, [place] # (Auto) 0.2, Eos # (Auto) 0.0, Baso # (Auto) 0.0, Total Counted 100, Neutrophils % (Manual) 73, Band Neutrophils % 7.0, Lymphocytes % (Manual) 15, Monocytes % (Manual) 3, Eosinophils % (Manual) 1, Basophils % (Manual) 1.0, Platelet Estimate Normal, RBC Morphology Normal 01/31/22 06:40: Sodium 133 L, Potassium 3.9, Chloride 101, Carbon Dioxide 26, Anion Gap 9.9, BUN 34 H, Creatinine 1.30 H D, Estimated Creat Clear 38, Estimated GFR 40 L, Est GFR ( Amer) 48 L D, Glucose 79, Calcium 7.6 L I & O for Last 24 hours: Intake & Output 01/28/22 01/29/22 01/30/22 01/31/22 11:59 11:59 11:59 11:59 Intake Total 1600 / 1600 Output Total 525 / 525 Balance 1075 / 1075 Weight 137 lb 142 lb 9.6 oz Narrative: Heart rate regular. Lungs have good air movement, scattered rhonchi. Abdomen is soft but tender as expected. NG tube drainage noted. No edema or clubbing Assessment and Plan (1) Small bowel obstruction Status: Acute Category: Medical Code(s): K56.609 - Unspecified intestinal obstruction, unspecified as to partial versus complete obstruction (2) CAD (coronary artery disease) Status: Chronic Qualifiers: Coronary Disease-Associated Artery/Lesion type: unspecified vessel or lesion type [place] vs. transplanted heart: [place] heart Associated angina: unspecified whether angina present Qualified Code(s): I25.10 - Atherosclerotic heart disease of [place] coronary artery without angina pectoris Category: Medical Code(s): I25.10 - Atherosclerotic heart disease of [place] coronary artery without angina pectoris (3) COPD (chronic obstructive pulmonary disease) Status: Chronic Qualifiers: COPD type: unspecified COPD Qualified Code(s): J44.9 - Chronic obstructive pulmonary disease, unspecified Category: Medical Code(s): J44.9 - Chronic obstructive pulmonary disease, unspecified (4) HLD (hyperlipidemia) Status: Chronic Qualifiers: Hyperlipidemia type: mixed hyperlipidemia Qualified Code(s): E78.2 - Mixed hyperlipidemia Category: Medical Code(s): E78.5 - Hyperlipidemia, unspecified (5) HTN (hypertension) Status: Chronic Qualifiers: Hypertension type: essential hypertension Category: Medical Code(s): I10 - Essential (primary) hypertension (6) KM (obstructive sleep apnea) Status: Chronic Category: Medical Code(s): G47.33 - Obstructive sleep apnea (adult) (pediatric) - Assessment and plan all Dx Assessment and Plan for all problems:: Restart duo nebs to help with patient's pulmonary toilet. Appreciate surgical input. Continue to follow along. Increase fluid rate given her slightly increased creatinine an
--- NOTE | 2022-01-31 09:26 | HMH.GSPN ---
Subjective Narrative: She states that she feels okay . She is having moderate postoperative pain. Progress Note: A&P (1) Small bowel obstruction Status: Acute Assessment and plan: Overall, doing fairly well status post exploratory laparotomy with extensive lysis of adhesions. DC Humphrey Ambulate Continue nasogastric decompression for now (2) CAD (coronary artery disease) Status: Chronic (3) COPD (chronic obstructive pulmonary disease) Status: Chronic (4) HLD (hyperlipidemia) Status: Chronic (5) HTN (hypertension) Status: Chronic (6) KM (obstructive sleep apnea) Status: Chronic Exam Vital signs and Labs for Last 24 Hours: Temp Pulse Resp BP Pulse Ox 97.9 F 89 22 103/51 L 96 01/31/22 08:00 01/31/22 08:00 01/31/22 08:00 01/31/22 08:00 01/31/22 08:00 Laboratory Results - last 24 hr 01/30/22 12:09: Urine Color Yellow, Urine Appearance Clear, Urine pH 6.0, Ur Specific [place] 1.010, Urine Protein Negative, Urine Glucose (UA) Negative, Urine Ketones Trace, Urine Blood Negative, Urine Nitrate Negative, Urine Bilirubin Negative, Urine Urobilinogen 0.2, Ur Leukocyte Esterase Negative, Urine RBC None, Urine WBC None, Ur Squamous Epith Cells None, Urine Bacteria None 01/31/22 06:40: WBC 6.4, RBC 3.38 L, Hgb 10.0 L, Hct 30.6 L, MCV 90.5, MCH 29.6, MCHC 32.7, RDW 14.7, Plt Count 202, MPV 10.0, Neut % (Auto) 89.1 H, Lymph % (Auto) 7.5 L, [place] % (Auto) 2.8, Eos % (Auto) 0.3, Baso % (Auto) 0.2, Neut # (Auto) 5.7, Lymph # (Auto) 0.5 L, [place] # (Auto) 0.2, Eos # (Auto) 0.0, Baso # (Auto) 0.0, Total Counted 100, Neutrophils % (Manual) 73, Band Neutrophils % 7.0, Lymphocytes % (Manual) 15, Monocytes % (Manual) 3, Eosinophils % (Manual) 1, Basophils % (Manual) 1.0, Platelet Estimate Normal, RBC Morphology Normal 01/31/22 06:40: Sodium 133 L, Potassium 3.9, Chloride 101, Carbon Dioxide 26, Anion Gap 9.9, BUN 34 H, Creatinine 1.30 H D, Estimated Creat Clear 38, Estimated GFR 40 L, Est GFR ( Amer) 48 L D, Glucose 79, Calcium 7.6 L I & O for Last 24 hours: Intake & Output 01/28/22 01/29/22 01/30/22 01/31/22 11:59 11:59 11:59 11:59 Intake Total 1600 / 1600 Output Total 525 / 525 Balance 1075 / 1075 Weight 137 lb 142 lb 9.6 oz - Constitutional no acute distress - *Routine Respiratory Exam Absent: respiratory distress - *Routine Cardiovascular Exam Absent: tachycardia - *Routine Abdominal Exam Present: soft Comments: Dressing intact. No erythema.
--- NOTE | 2022-01-31 13:00 | PC.NURSE ---
Catheter D/C'd per Dr. Hickman's note at 1000 a
--- NOTE | 2022-01-31 13:18 | P.PN_ITS ---
[facility] Anesthesia Record Part II Discharge Time: 14:57 Destination: Medical Surgical Department PACU nurse assessment reviewed?: Yes Patient Condition:: Good Anesthesia Complications:: None Swallowing reflex intact?: Yes Cyanosis?: No Blood Pressure: 100/54 Pulse Rate: 74 Temperature: 99 F Mental Status: Alert & Oriented Pain level:: 0 Nausea and/or vomitting:: None Intake, IV Amount: 0
--- NOTE | 2022-01-31 18:49 | PC.NURSE ---
OPERATIONS ASST pump cleared, total 18 for two shifts.
--- NOTE | 2022-01-31 20:08 | PC.NURSE ---
Positive placement heard of NG tube. Flushed vent with 10 ml of air as well. Ng hooked back up to Low continues suction. Scant amount of green drainage noted in canister. Will continue to monitor.
[2022-02-01] VITALS (20 sets, daily range): BP systolic 109–161; BP diastolic 60–83; PULSE 71–134; RESP 13–22; TEMP 36.3–37.3; O2SAT 88–94; BMI 24.4
--- NOTE | 2022-02-01 06:29 | PC.NURSE ---
Patient used EXPERIMENTAL PSYCHOLOGIST pump 2 times this shift resulting in 2mg of morphine. Patient NG tube 300 ML greenish brown drainage noted.
[2022-02-01 07:31] LABS: Basophils % 0.2 % (0.1-2.0); Eosinophils # 0.1 K/mm3 (0.0-0.4); Eosinophils % 1.7 % (0.1-12.0); Hematocrit 28.3 % (37.0-47.0); Hemoglobin 9.2 g/dL (12.2-16.2); Lymphocytes # 0.7 K/mm3 (0.7-4.5); Lymphocytes % 9.5 % (10-50); Mean Corpuscular HGB Conc 32.3 g/dL (31.8-35.4); Mean Corpuscular Hemoglobin 29.9 pg (27.0-31.2); Mean Corpuscular Volume 92.4 fl (81-99); Mean Platelet Volume 9.6 fl (7.4-10.4); Monocytes # 0.3 K/mm3 (0.1-1.0); Monocytes % 3.4 % (1.7-9.3); Neutrophils # 6.2 K/mm3 (1.8-7.8); Neutrophils % 85.2 % (37.0-80.0); Platelet Count 178 K/mm3 (142-424); Red Blood Count 3.06 M/mm3 (4.20-5.40); Red Cell Distribution Width 14.2 % (11.5-17.5); White Blood Count 7.2 K/mm3 (4.8-10.8)
[2022-02-01 07:39] LABS: Anion Gap 9.5 mEq/L (5-15); Blood Urea Nitrogen 25 mg/dl (7-17); Calcium 7.5 mg/dl (8.4-10.2); Carbon Dioxide 25 mmol/L (22.0-30.0); Chloride 103 mmol/L (98-107); Creatinine Clearance Estimated 50 mL/min (50-200); Estimated Glomerular Filt Rate 81 ml/min (>60); GFR (African American) 98 ML/MIN (>60); Glucose 73 mg/dl (74-100); Potassium 3.5 mmoL/L (3.5-5.1); Sodium 134 mmol/L (136-145)
[2022-02-01 07:49] LABS: MANUAL DIFFERENTIAL MANUAL DIFFERENTIAL (MANUAL DIFF)
--- NOTE | 2022-02-01 08:19 | PC.NURSE ---
Weight 02/01/2022 Patient weighs 160.8 lbs
--- NOTE | 2022-02-01 09:01 | HMH.ACPN2 ---
Internal Medicine - PN: Subj *Date: 02/01/22 *Time: 09:01 Interval history: Patient is pleasant and talkative this morning. Notes that she feels a little bit better than she did yesterday. Feels a little less thirsty. No vomiting. NG tube in right nostril appears to be draining appropriately. Patient denies passage of flatus or stool Exam Vital signs and Labs for Last 24 Hours: Temp Pulse Resp BP Pulse Ox 97.8 F 88 20 120/64 92 L 02/01/22 08:00 02/01/22 08:00 02/01/22 08:00 02/01/22 08:00 02/01/22 08:00 Laboratory Results - last 24 hr 02/01/22 06:37: WBC 7.2, RBC 3.06 L, Hgb 9.2 L, Hct 28.3 L, MCV 92.4, MCH 29.9, MCHC 32.3, RDW 14.2, Plt Count 178, MPV 9.6, Neut % (Auto) 85.2 H, Lymph % (Auto) 9.5 L, [place] % (Auto) 3.4, Eos % (Auto) 1.7, Baso % (Auto) 0.2, Neut # (Auto) 6.2, Lymph # (Auto) 0.7, [place] # (Auto) 0.3, Eos # (Auto) 0.1, Baso # (Auto) 0.0 02/01/22 06:37: Sodium 134 L, Potassium 3.5, Chloride 103, Carbon Dioxide 25, Anion Gap 9.5, BUN 25 H D, Creatinine 0.70 D, Estimated Creat Clear 50, Estimated GFR 81, Est GFR ( Amer) 98 D, Glucose 73 L, Calcium 7.5 L I & O for Last 24 hours: Intake & Output 01/29/22 01/30/22 01/31/22 02/01/22 11:59 11:59 11:59 11:59 Intake Total 1600 / 1600 0 / 0 Output Total 525 / 525 800 / 800 Balance 1075 / 1075 -800 / -800 Weight 137 lb 142 lb 9.6 oz 146 lb 8 oz Narrative: Lungs have better air movement. Heart rate regular. Abdomen is tender, surgical sites look good. Abdomen is however is soft. No extremity edema. NG tube in good position. Neurologically intact Assessment and Plan (1) Small bowel obstruction Status: Acute Category: Medical Code(s): K56.609 - Unspecified intestinal obstruction, unspecified as to partial versus complete obstruction (2) CAD (coronary artery disease) Status: Chronic Qualifiers: Coronary Disease-Associated Artery/Lesion type: unspecified vessel or lesion type [place] vs. transplanted heart: [place] heart Associated angina: unspecified whether angina present Qualified Code(s): I25.10 - Atherosclerotic heart disease of [place] coronary artery without angina pectoris Category: Medical Code(s): I25.10 - Atherosclerotic heart disease of [place] coronary artery without angina pectoris (3) COPD (chronic obstructive pulmonary disease) Status: Chronic Qualifiers: COPD type: unspecified COPD Qualified Code(s): J44.9 - Chronic obstructive pulmonary disease, unspecified Category: Medical Code(s): J44.9 - Chronic obstructive pulmonary disease, unspecified (4) HLD (hyperlipidemia) Status: Chronic Qualifiers: Hyperlipidemia type: mixed hyperlipidemia Qualified Code(s): E78.2 - Mixed hyperlipidemia Category: Medical Code(s): E78.5 - Hyperlipidemia, unspecified (5) HTN (hypertension) Status: Chronic Qualifiers: Hypertension type: essential hypertension Category: Medical Code(s): I10 - Essential (primary) hypertension (6) KM (obstructive sleep apnea) Status: Chronic Category: Medical Code(s): G47.33 - Obstructive sleep apnea (adult) (pediatric) - Assessment and plan all Dx Assessment and Plan for all problems:: Improved respiratory status with nebulizer treatments. Encourage incentive spirometer use today. Mild DA has resolved with slightly higher rates of IV fluids. Check labs tomorrow. Follow with surgery. Appreciate input.
--- NOTE | 2022-02-01 09:15 | PC.NURSE ---
progress Patient is becoming more independent and is gaining strength back. She was able to stand herself up with standby assistance.
--- NOTE | 2022-02-01 09:16 | HMH.GSPN ---
Subjective Patient reports: feels better, no flatus, no bowel movement Progress Note: A&P (1) Small bowel obstruction Status: Acute Assessment and plan: Overall, doing well status post exploratory laparotomy with extensive lysis of adhesions. Continue to increase ambulation (2) CAD (coronary artery disease) Status: Chronic (3) COPD (chronic obstructive pulmonary disease) Status: Chronic (4) HLD (hyperlipidemia) Status: Chronic (5) HTN (hypertension) Status: Chronic (6) KM (obstructive sleep apnea) Status: Chronic (7) Postoperative ileus Status: Acute Assessment and plan: Anticipate fairly prolonged ileus secondary to need for extensive lysis of adhesions and bowel manipulation. Continue NPO status and nasogastric decompression for now Exam Vital signs and Labs for Last 24 Hours: Temp Pulse Resp BP Pulse Ox 97.8 F 88 20 120/64 92 L 02/01/22 08:00 02/01/22 08:00 02/01/22 08:00 02/01/22 08:00 02/01/22 08:00 Laboratory Results - last 24 hr 02/01/22 06:37: WBC 7.2, RBC 3.06 L, Hgb 9.2 L, Hct 28.3 L, MCV 92.4, MCH 29.9, MCHC 32.3, RDW 14.2, Plt Count 178, MPV 9.6, Neut % (Auto) 85.2 H, Lymph % (Auto) 9.5 L, [place] % (Auto) 3.4, Eos % (Auto) 1.7, Baso % (Auto) 0.2, Neut # (Auto) 6.2, Lymph # (Auto) 0.7, [place] # (Auto) 0.3, Eos # (Auto) 0.1, Baso # (Auto) 0.0 02/01/22 06:37: Sodium 134 L, Potassium 3.5, Chloride 103, Carbon Dioxide 25, Anion Gap 9.5, BUN 25 H D, Creatinine 0.70 D, Estimated Creat Clear 50, Estimated GFR 81, Est GFR ( Amer) 98 D, Glucose 73 L, Calcium 7.5 L I & O for Last 24 hours: Intake & Output 01/29/22 01/30/22 01/31/22 02/01/22 11:59 11:59 11:59 11:59 Intake Total 1600 / 1600 0 / 0 Output Total 525 / 525 800 / 800 Balance 1075 / 1075 -800 / -800 Weight 137 lb 142 lb 9.6 oz 146 lb 8 oz - Constitutional no acute distress - *Routine Respiratory Exam Absent: respiratory distress - *Routine Cardiovascular Exam Absent: tachycardia - *Routine Abdominal Exam Present: soft Comments: Incision clean, dry, and intact. No erythema.
[2022-02-01 11:01] LABS: Eosinophils % 1 % (0-3); Lymphocytes % 11 % (10-50); Monocytes % 1 % (2-9); Neutrophils % 87 % (42-76); Platelet Estimate Normal; Total Cells Counted 100
[2022-02-01 11:02] LABS: RBC Morphology Normal
--- NOTE | 2022-02-01 13:49 | PC.NURSE ---
Ambulate Patient did really good walking. We walked to the door and back two times. She is definitely gaining strength and did not complain of pain to me.
--- NOTE | 2022-02-01 19:35 | PC.NURSE ---
ENGAGEMENT ENGINEER pump pushed twice on shift
--- NOTE | 2022-02-01 20:54 | PC.NURSE ---
EXPLOSIVES WORKER pump refilled second RN Sindy verified. Pump cleared for 4ml in 24 hrs. Patient NG green brown drainage noted 200ml output before transfer to OB uint.
--- NOTE | 2022-02-01 21:35 | PC.NURSE ---
late entry: 2039 report received from Ana Maria DOWNS.
[2022-02-02] VITALS (19 sets, daily range): BP systolic 118–179; BP diastolic 63–110; PULSE 83–145; RESP 18–28; TEMP 36.3–36.8; O2SAT 86–94
--- NOTE | 2022-02-02 04:45 | PC.NURSE ---
NO ACUTE CHANGES FROM PREVIOUS ASSESSMENT, PT HAS RESTED WELL THIS SHIFT. INCISION REMAINS APPROXIMATED AND CDI. VS WNL. WILL CONTINUE TO MONITOR.
[2022-02-02 07:01] LABS: Basophils % 0.2 % (0.1-2.0); Eosinophils % 0.1 % (0.1-12.0); Hematocrit 29.8 % (37.0-47.0); Hemoglobin 9.5 g/dL (12.2-16.2); Lymphocytes # 0.5 K/mm3 (0.7-4.5); Lymphocytes % 4.9 % (10-50); Mean Corpuscular HGB Conc 31.9 g/dL (31.8-35.4); Mean Corpuscular Hemoglobin 29.5 pg (27.0-31.2); Mean Corpuscular Volume 92.5 fl (81-99); Mean Platelet Volume 9.6 fl (7.4-10.4); Monocytes # 0.4 K/mm3 (0.1-1.0); Monocytes % 3.4 % (1.7-9.3); Neutrophils # 9.7 K/mm3 (1.8-7.8); Neutrophils % 91.4 % (37.0-80.0); Platelet Count 211 K/mm3 (142-424); Red Blood Count 3.23 M/mm3 (4.20-5.40); Red Cell Distribution Width 14.1 % (11.5-17.5); White Blood Count 10.6 K/mm3 (4.8-10.8)
[2022-02-02 07:11] LABS: Anion Gap 11.7 mEq/L (5-15); Blood Urea Nitrogen 15 mg/dl (7-17); Calcium 7.8 mg/dl (8.4-10.2); Carbon Dioxide 23 mmol/L (22.0-30.0); Chloride 105 mmol/L (98-107); Creatinine Clearance Estimated 50 mL/min (50-200); Estimated Glomerular Filt Rate 97 ml/min (>60); GFR (African American) 118 ML/MIN (>60); Glucose 103 mg/dl (74-100); Potassium 3.7 mmoL/L (3.5-5.1); Sodium 136 mmol/L (136-145)
[2022-02-02 07:19] LABS: MANUAL DIFFERENTIAL MANUAL DIFFERENTIAL (MANUAL DIFF)
--- NOTE | 2022-02-02 07:44 | HMH.GSPN ---
Subjective Patient reports: feels better, no bowel movement (She reports a small amount of gas ) Progress Note: A&P (1) Small bowel obstruction Status: Acute Assessment and plan: Overall, doing fairly well status post exploratory laparotomy with extensive lysis of adhesions. (2) CAD (coronary artery disease) Status: Chronic (3) COPD (chronic obstructive pulmonary disease) Status: Chronic (4) HLD (hyperlipidemia) Status: Chronic (5) HTN (hypertension) Status: Chronic (6) KM (obstructive sleep apnea) Status: Chronic (7) Postoperative ileus Status: Acute Assessment and plan: The patient reports a small amount of flatus. NG to drain bag (check residual every 4 hours) Exam Vital signs and Labs for Last 24 Hours: Temp Pulse Resp BP Pulse Ox 98 F 120 H 18 173/63 H 88 L 02/02/22 06:00 02/02/22 06:00 02/02/22 06:00 02/02/22 06:00 02/02/22 06:00 Laboratory Results - last 24 hr 02/01/22 06:37: WBC 7.2, RBC 3.06 L, Hgb 9.2 L, Hct 28.3 L, MCV 92.4, MCH 29.9, MCHC 32.3, RDW 14.2, Plt Count 178, MPV 9.6, Neut % (Auto) 85.2 H, Lymph % (Auto) 9.5 L, [place] % (Auto) 3.4, Eos % (Auto) 1.7, Baso % (Auto) 0.2, Neut # (Auto) 6.2, Lymph # (Auto) 0.7, [place] # (Auto) 0.3, Eos # (Auto) 0.1, Baso # (Auto) 0.0, Total Counted 100, Neutrophils % (Manual) 87 H, Lymphocytes % (Manual) 11, Monocytes % (Manual) 1 L, Eosinophils % (Manual) 1, Platelet Estimate Normal, RBC Morphology Normal 02/02/22 06:46: WBC 10.6 D, RBC 3.23 L, Hgb 9.5 L, Hct 29.8 L, MCV 92.5, MCH 29.5, MCHC 31.9, RDW 14.1, Plt Count 211, MPV 9.6, Neut % (Auto) 91.4 H, Lymph % (Auto) 4.9 L, [place] % (Auto) 3.4, Eos % (Auto) 0.1, Baso % (Auto) 0.2, Neut # (Auto) 9.7 H, Lymph # (Auto) 0.5 L, [place] # (Auto) 0.4, Eos # (Auto) 0.0, Baso # (Auto) 0.0 02/02/22 06:46: Sodium 136, Potassium 3.7, Chloride 105, Carbon Dioxide 23, Anion Gap 11.7, BUN 15 D, Creatinine 0.60, Estimated Creat Clear 50, Estimated GFR 97, Est GFR ( Amer) 118 D, Glucose 103 H, Calcium 7.8 L I & O for Last 24 hours: Intake & Output 01/30/22 01/31/22 02/01/22 02/02/22 11:59 11:59 11:59 11:59 Intake Total 1600 / 1600 0 / 0 1296 / 1296 Output Total 525 / 525 1200 / 1200 1750 / 1750 Balance 1075 / 1075 -1200 / -1200 -454 / -454 Weight 137 lb 142 lb 9.6 oz 146 lb 8 oz - Constitutional no acute distress - *Routine Respiratory Exam Absent: respiratory distress - *Routine Cardiovascular Exam Present: tachycardia - *Routine Abdominal Exam Present: soft (Incision clean, dry, and intact. No erythema.)
[2022-02-02 08:26] LABS: Lymphocytes % 3 % (10-50); Monocytes % 2 % (2-9); Neutrophils % 95 % (42-76); Total Cells Counted 100
[2022-02-02 08:27] LABS: Platelet Estimate Normal
--- NOTE | 2022-02-02 09:14 | ECG_ITS ---
APPROVED REPORT Exam: Resting ECG HR:138 bpm ECG Measurements Heart Rate 138 AXES QRSd 87 QRS 54 QT 203 T 0 QTc 283 Conclusion ATRIAL FLUTTER/TACHYCARDIA WITH RAPID VENTRICULAR RESPONSE NONSPECIFIC ST & T-WAVE ABNORMALITY ABNORMAL RHYTHM ECG UNCONFIRMED REPORT Electronically signed by : Wally Martinez MD 02/03/2022 16:34:27
--- NOTE | 2022-02-02 09:14 | HMH.ACPN2 ---
Internal Medicine - PN: Subj *Date: 02/02/22 *Time: 09:14 Interval history: Patient is up in a chair, notes that she has had some small amounts of flatus. No vomiting. Staff notes that her heart beat was slightly irregular on exam this morning Exam Vital signs and Labs for Last 24 Hours: Temp Pulse Resp BP Pulse Ox 97.5 F L 100 H 20 142/87 H 90 L 02/02/22 08:00 02/02/22 08:00 02/02/22 08:00 02/02/22 08:00 02/02/22 08:00 Laboratory Results - last 24 hr 02/01/22 06:37: Total Counted 100, Neutrophils % (Manual) 87 H, Lymphocytes % (Manual) 11, Monocytes % (Manual) 1 L, Eosinophils % (Manual) 1, Platelet Estimate Normal, RBC Morphology Normal 02/02/22 06:46: WBC 10.6 D, RBC 3.23 L, Hgb 9.5 L, Hct 29.8 L, MCV 92.5, MCH 29.5, MCHC 31.9, RDW 14.1, Plt Count 211, MPV 9.6, Neut % (Auto) 91.4 H, Lymph % (Auto) 4.9 L, [place] % (Auto) 3.4, Eos % (Auto) 0.1, Baso % (Auto) 0.2, Neut # (Auto) 9.7 H, Lymph # (Auto) 0.5 L, [place] # (Auto) 0.4, Eos # (Auto) 0.0, Baso # (Auto) 0.0, Total Counted 100, Neutrophils % (Manual) 95 H, Lymphocytes % (Manual) 3 L, Monocytes % (Manual) 2, Platelet Estimate Normal 02/02/22 06:46: Sodium 136, Potassium 3.7, Chloride 105, Carbon Dioxide 23, Anion Gap 11.7, BUN 15 D, Creatinine 0.60, Estimated Creat Clear 50, Estimated GFR 97, Est GFR ( Amer) 118 D, Glucose 103 H, Calcium 7.8 L I & O for Last 24 hours: Intake & Output 01/30/22 01/31/22 02/01/22 02/02/22 11:59 11:59 11:59 11:59 Intake Total 1600 / 1600 0 / 0 1296 / 1296 Output Total 525 / 525 1200 / 1200 1750 / 1750 Balance 1075 / 1075 -1200 / -1200 -454 / -454 Weight 137 lb 142 lb 9.6 oz 146 lb 8 oz Narrative: Sounds that she has an occasional ectopic beat when she breathes in. Heart rate otherwise regular. Lungs have good air movement. Abdomen soft. Painful as would be expected around her incision sites. No edema. NG tube in good position Assessment and Plan (1) Small bowel obstruction Status: Acute Category: Medical Code(s): K56.609 - Unspecified intestinal obstruction, unspecified as to partial versus complete obstruction (2) CAD (coronary artery disease) Status: Chronic Qualifiers: Coronary Disease-Associated Artery/Lesion type: unspecified vessel or lesion type [place] vs. transplanted heart: [place] heart Associated angina: unspecified whether angina present Qualified Code(s): I25.10 - Atherosclerotic heart disease of [place] coronary artery without angina pectoris Category: Medical Code(s): I25.10 - Atherosclerotic heart disease of [place] coronary artery without angina pectoris (3) COPD (chronic obstructive pulmonary disease) Status: Chronic Qualifiers: COPD type: unspecified COPD Qualified Code(s): J44.9 - Chronic obstructive pulmonary disease, unspecified Category: Medical Code(s): J44.9 - Chronic obstructive pulmonary disease, unspecified (4) HLD (hyperlipidemia) Status: Chronic Qualifiers: Hyperlipidemia type: mixed hyperlipidemia Qualified Code(s): E78.2 - Mixed hyperlipidemia Category: Medical Code(s): E78.5 - Hyperlipidemia, unspecified (5) HTN (hypertension) Status: Chronic Qualifiers: Hypertension type: essential hypertension Category: Medical Code(s): I10 - Essential (primary) hypertension (6) KM (obstructive sleep apnea) Status: Chronic Category: Medical Code(s): G47.33 - Obstructive sleep apnea (adult) (pediatric) (7) Postoperative ileus Status: Acute Category: Medical Code(s): K91.89 - Other postprocedural complications and disorders of digestive system; K56.7 - Ileus, unspecified - Assessment and plan all Dx Assessment and Plan for all problems:: Doing very nicely at this point. We will get chewing gum for patient to stimulate peristalsis. Check EKG today. I think this is probably from her COPD but high risk for arrhythmias given her underlying medical problems. Appreciate surgical input.
--- NOTE | 2022-02-02 11:07 | PC.NURSE ---
0810 NG TO DRAIN BAG AT THIS TIME
--- NOTE | 2022-02-02 12:14 | PC.NURSE ---
1210 APPROXIMATELY 30MLS NOTED TO NG DRAINAGE BAG. PT DENIES NAUSEA. TOLERATING ICE CHIPS
--- NOTE | 2022-02-02 16:22 | DIET.NUTRFU ---
RD reviewing chart, patient has been NPO since admit on 01/30 d/t bowel procedure. Noted to have passing gas today, NG tube in place for drainage. IVF are in place for hydration and labs are WNL. Will continue to monitor and when appropriate to start oral diet.
--- NOTE | 2022-02-02 19:05 | PC.NURSE ---
ALL CARE AND CHARTING UNDER MY DIRECT SUPERVISION
--- NOTE | 2022-02-02 20:45 | ECG_ITS ---
APPROVED REPORT Exam: Resting ECG HR:136 bpm ECG Measurements Heart Rate 136 AXES QRSd 92 QRS 60 QT 281 T 262 QTc 361 Conclusion ATRIAL FLUTTER/TACHYCARDIA WITH RAPID VENTRICULAR RESPONSE NONSPECIFIC ST & T-WAVE ABNORMALITY ABNORMAL ECG UNCONFIRMED REPORT Electronically signed by : Wally Martinez MD 02/03/2022 16:33:55
--- NOTE | 2022-02-02 21:00 | XR_ITS ---
PROCEDURE INFORMATION: Exam: XR Chest Exam date and time: 02/02/2022 9:22 PM Age: 76 years old Clinical indication: Shortness of breath; Additional info: SOB TECHNIQUE: Imaging protocol: XR of the chest. Views: 1 view. COMPARISON: CR XR CHEST 2V 01/30/2022 2:35 AM FINDINGS: Tubes, catheters and devices: NG tube tip in the stomach along the greater curvature. Lungs: Multifocal areas of airspace disease in both lungs findings concerning for severe pneumonia. Underlying chronic interstitial lung disease and COPD. Granulomatous changes. Pleural spaces: Small bilateral pleural effusions. Heart/Mediastinum: Unremarkable. No cardiomegaly. Bones/joints: Severe degenerative changes in the left Leno humeral joint. IMPRESSION: Severe multifocal pneumonia and small bilateral pleural effusions.
[2022-02-02 21:23] LABS: Basophils % 0.4 % (0.1-2.0); Eosinophils % 0.2 % (0.1-12.0); Lymphocytes # 0.6 K/mm3 (0.7-4.5); MANUAL DIFFERENTIAL MANUAL DIFFERENTIAL (MANUAL DIFF); Mean Corpuscular HGB Conc 32.4 g/dL (31.8-35.4); Mean Corpuscular Hemoglobin 29.6 pg (27.0-31.2); Mean Corpuscular Volume 91.3 fl (81-99); Mean Platelet Volume 8.9 fl (7.4-10.4); Monocytes # 0.4 K/mm3 (0.1-1.0); Monocytes % 3.3 % (1.7-9.3); Neutrophils # 9.6 K/mm3 (1.8-7.8); Neutrophils % 90.1 % (37.0-80.0); Platelet Count 238 K/mm3 (142-424); Red Blood Count 3.72 M/mm3 (4.20-5.40); Red Cell Distribution Width 14.1 % (11.5-17.5); White Blood Count 10.6 K/mm3 (4.8-10.8)
--- NOTE | 2022-02-02 21:35 | PC.NURSE ---
2009: assessment completed at this time, heart rhythm noted to be irregular upon ascultation and rate noted to be in 130s, pt denies chest pain, SOB noted which patient states is no worse from earlier, o2 sat noted to be 91% on 4L NC, RT notified for EKG. 2023:RT at bedside and EKG completed 2032: MD notified at [facility] and notified heart sounds more regular but tachycardic, new order to repeat EKG 2044: EKG repeated and taken to MD to read, Dr White notified Dr Blake and put in orders new order to transfer to stepdown 2099: House notified for transfer 2129: pt continues to deny chest pain, states she is anxious at this time with everything going on SOB continues with o2 sats noted to be at 89% on 4L NC. awaiting room at this time
[2022-02-02 21:51] LABS: Anion Gap 17.2 mEq/L (5-15); Blood Urea Nitrogen 11 mg/dl (7-17); Calcium 8.2 mg/dl (8.4-10.2); Carbon Dioxide 18 mmol/L (22.0-30.0); Chloride 105 mmol/L (98-107); Creatinine Clearance Estimated 50 mL/min (50-200); Estimated Glomerular Filt Rate 97 ml/min (>60); GFR (African American) 118 ML/MIN (>60); Glucose 96 mg/dl (74-100); Potassium 3.2 mmoL/L (3.5-5.1); Sodium 137 mmol/L (136-145)
--- NOTE | 2022-02-02 22:06 | PC.NURSE ---
PT ARRIVED VIA BED FROM OB TO MED SURG W/STAFF @ 3572
--- NOTE | 2022-02-02 22:25 | PC.NURSE ---
2212: pt taken to room 217 at this time report given to Stephenie Burks RN
[2022-02-02 22:28] LABS: Lymphocytes % 8 % (10-50); Monocytes % 5 % (2-9); Neutrophils % 86 % (42-76); Platelet Estimate Normal; Promyelocytes % 1 %; Total Cells Counted 100
--- NOTE | 2022-02-02 22:32 | CT_ITS ---
PROCEDURE INFORMATION: Exam: CTA Chest With Contrast Exam date and time: 02/02/2022 11:29 PM Age: 76 years old Clinical indication: Other: Tachycardia TECHNIQUE: Imaging protocol: Computed tomographic angiography of the chest with contrast. 3D rendering (Not supervised by radiologist): MIP and/or 3D reconstructed images were created by the technologist. Radiation optimization: All CT scans at this facility use at least one of these dose optimization techniques: automated exposure control; mA and/or kV adjustment per patient size (includes targeted exams where dose is matched to clinical indication); or iterative reconstruction. Contrast material: ISOVUE; Contrast volume: 70 ml; Contrast route: INTRAVENOUS (IV); COMPARISON: CR XR CHEST PORTABLE 02/02/2022 9:22 PM FINDINGS: Pulmonary arteries: Normal. No pulmonary emboli. Aorta: Unremarkable. No aortic aneurysm. No aortic dissection. Lungs: There is extensive bilateral airspace disease involving bilateral mid and lower lung zones findings concerning for severe pneumonia. Pleural spaces: Small bilateral pleural effusions left greater than right. Heart: Cardiomegaly. Lymph nodes: Unremarkable. No enlarged lymph nodes. Bones/joints: Chronic midthoracic spine fractures with kyphosis. No acute fracture. Soft tissues: Unremarkable. IMPRESSION: 1. Small bilateral pleural effusions left greater than right with extensive bilateral pneumonia. 2. No pulmonary embolism
[2022-02-03] VITALS (26 sets, daily range): BP systolic 103–172; BP diastolic 56–96; PULSE 74–148; RESP 18–28; TEMP 36.7–37.4; O2SAT 84–94; BMI 24.6
--- NOTE | 2022-02-03 06:41 | PC.NURSE ---
Addendum entered by Ashly Burks RN 02/03/22 06:51: Dr. White did review all labs, including the troponin that was drawn Original Note: [address] White about pt's HR, SOA, low O2, Dr. White reviewed chest xray, and added clindamycin and piperacillin, also wanted a lactic and blood cultures drawn, all orders put in, in ED, all orders carried out
--- NOTE | 2022-02-03 06:59 | HMH.ACPN2 ---
Internal Medicine - PN: Subj *Date: 02/03/22 *Time: 08:45 Exam Vital signs and Labs for Last 24 Hours: Temp Pulse Resp BP Pulse Ox 98.1 F 141 H 24 146/81 H 88 L 02/03/22 00:00 02/03/22 06:00 02/03/22 06:00 02/03/22 06:00 02/03/22 06:00 Laboratory Results - last 24 hr 02/02/22 06:46: WBC 10.6 D, RBC 3.23 L, Hgb 9.5 L, Hct 29.8 L, MCV 92.5, MCH 29.5, MCHC 31.9, RDW 14.1, Plt Count 211, MPV 9.6, Neut % (Auto) 91.4 H, Lymph % (Auto) 4.9 L, [place] % (Auto) 3.4, Eos % (Auto) 0.1, Baso % (Auto) 0.2, Neut # (Auto) 9.7 H, Lymph # (Auto) 0.5 L, [place] # (Auto) 0.4, Eos # (Auto) 0.0, Baso # (Auto) 0.0, Total Counted 100, Neutrophils % (Manual) 95 H, Lymphocytes % (Manual) 3 L, Monocytes % (Manual) 2, Platelet Estimate Normal 02/02/22 06:46: Sodium 136, Potassium 3.7, Chloride 105, Carbon Dioxide 23, Anion Gap 11.7, BUN 15 D, Creatinine 0.60, Estimated Creat Clear 50, Estimated GFR 97, Est GFR ( Amer) 118 D, Glucose 103 H, Calcium 7.8 L 02/02/22 21:15: WBC 10.6, RBC 3.72 L, Hgb 11.0 L D, Hct 34.0 L, MCV 91.3, MCH 29.6, MCHC 32.4, RDW 14.1, Plt Count 238, MPV 8.9, Neut % (Auto) 90.1 H, Lymph % (Auto) 6.0 L, [place] % (Auto) 3.3, Eos % (Auto) 0.2, Baso % (Auto) 0.4, Neut # (Auto) 9.6 H, Lymph # (Auto) 0.6 L, [place] # (Auto) 0.4, Eos # (Auto) 0.0, Baso # (Auto) 0.0, Total Counted 100, Neutrophils % (Manual) 86 H, Lymphocytes % (Manual) 8 L, Monocytes % (Manual) 5, Promyelocytes % 1, Platelet Estimate Normal 02/02/22 21:15: Sodium 137, Potassium 3.2 L, Chloride 105, Carbon Dioxide 18 L, Anion Gap 17.2 H, BUN 11 D, Creatinine 0.60, Estimated Creat Clear 50, Estimated GFR 97, Est GFR ( Amer) 118, Glucose 96, Calcium 8.2 L, Troponin I 0.10 H 02/03/22 01:15: Lactate 1.0 I & O for Last 24 hours: Intake & Output 01/31/22 02/01/22 02/02/22 02/03/22 23:59 23:59 23:59 23:59 Intake Total 0 / 0 1296 / 1296 1352 / 1352 Output Total 1225 / 1225 1600 / 1600 700 / 700 650 / 650 Balance -1225 / -1225 -1600 / -1600 596 / 596 702 / 702 Weight 64.682 kg 66.451 kg 67.132 kg - Constitutional moderate distress, average body habitus, chronically ill appearing - *Routine HEENT Exam Head: Present: normocephalic Eye: Present: EOMI, PERRL ENT: Present: mucous membranes moist Comments: NG in right nare; NC in place - *Routine Neck Exam Present: supple. Absent: lymphadenopathy - *Routine Respiratory Exam Present: accessory muscle use, wheezes, crackles - *Routine Cardiovascular Exam Present: tachycardia, irregularly irregular - *Routine Abdominal Exam Present: normoactive bowel sounds, tenderness (Diffuse), distended. Absent: rebound - *Routine Extremities Exam Absent: cyanosis, clubbing, edema - *Routine Skin Exam Present: warm. Absent: rash - *Routine Neurological Exam Present: alert, oriented X3 Assessment and Plan (1) Atrial fibrillation with RVR Status: Acute Category: Medical Code(s): I48.91 - Unspecified atrial fibrillation (2) Hospital-acquired pneumonia Status: Acute Category: Medical Code(s): J18.9 - Pneumonia, unspecified organism; Y95 - Nosocomial condition (3) Small bowel obstruction Status: Acute Category: Medical Code(s): K56.609 - Unspecified intestinal obstruction, unspecified as to partial versus complete obstruction (4) CAD (coronary artery disease) Status: Chronic Qualifiers: Coronary Disease-Associated Artery/Lesion type: unspecified vessel or lesion type [place] vs. transplanted heart: [place] heart Associated angina: unspecified whether angina present Qualified Code(s): I25.10 - Atherosclerotic heart disease of [place] coronary artery without angina pectoris Category: Medical Code(s): I25.10 - Atherosclerotic heart disease of [place] coronary artery without angina pectoris (5) COPD (chronic obstructive pulmonary disease) Status: Chronic Qualifiers: COPD type: unspecified COPD Qualified Code(s): J44.9 - Chronic obstructive pulmonary disease, unspecifi
--- NOTE | 2022-02-03 07:00 | HMH.GSPN ---
Subjective Patient reports: no flatus (Small amount of flatus yesterday. None since.), no bowel movement Narrative: Patient continues to have postoperative abdominal pain/soreness but states that her abdomen mostly just hurts with coughing . Progress Note: A&P (1) Small bowel obstruction Status: Acute Assessment and plan: The patient did have extensive adhesiolysis. No definitive evidence of ischemia noted at the time of operation. She does not have evidence of worsening abdominal pain or changes consistent with definitive perforation; ever, her tachycardia is worrisome. No need for urgent return to the operating room. With her newly-diagnosed pneumonia that is radiographically severe and increased cough/oxygen requirements... the risks of intervention without absolute necessity remain exceptionally high. (2) CAD (coronary artery disease) Status: Chronic (3) COPD (chronic obstructive pulmonary disease) Status: Chronic (4) HLD (hyperlipidemia) Status: Chronic (5) HTN (hypertension) Status: Chronic (6) KM (obstructive sleep apnea) Status: Chronic (7) Postoperative ileus Status: Acute Assessment and plan: Some early signs of resolution yesterday. Now with no flatus and some increased distention. NG tube back to low wall suction Exam Vital signs and Labs for Last 24 Hours: Temp Pulse Resp BP Pulse Ox 98.1 F 141 H 24 146/81 H 88 L 02/03/22 00:00 02/03/22 06:00 02/03/22 06:00 02/03/22 06:00 02/03/22 06:00 Laboratory Results - last 24 hr 02/02/22 06:46: WBC 10.6 D, RBC 3.23 L, Hgb 9.5 L, Hct 29.8 L, MCV 92.5, MCH 29.5, MCHC 31.9, RDW 14.1, Plt Count 211, MPV 9.6, Neut % (Auto) 91.4 H, Lymph % (Auto) 4.9 L, [place] % (Auto) 3.4, Eos % (Auto) 0.1, Baso % (Auto) 0.2, Neut # (Auto) 9.7 H, Lymph # (Auto) 0.5 L, [place] # (Auto) 0.4, Eos # (Auto) 0.0, Baso # (Auto) 0.0, Total Counted 100, Neutrophils % (Manual) 95 H, Lymphocytes % (Manual) 3 L, Monocytes % (Manual) 2, Platelet Estimate Normal 02/02/22 06:46: Sodium 136, Potassium 3.7, Chloride 105, Carbon Dioxide 23, Anion Gap 11.7, BUN 15 D, Creatinine 0.60, Estimated Creat Clear 50, Estimated GFR 97, Est GFR ( Amer) 118 D, Glucose 103 H, Calcium 7.8 L 02/02/22 21:15: WBC 10.6, RBC 3.72 L, Hgb 11.0 L D, Hct 34.0 L, MCV 91.3, MCH 29.6, MCHC 32.4, RDW 14.1, Plt Count 238, MPV 8.9, Neut % (Auto) 90.1 H, Lymph % (Auto) 6.0 L, [place] % (Auto) 3.3, Eos % (Auto) 0.2, Baso % (Auto) 0.4, Neut # (Auto) 9.6 H, Lymph # (Auto) 0.6 L, [place] # (Auto) 0.4, Eos # (Auto) 0.0, Baso # (Auto) 0.0, Total Counted 100, Neutrophils % (Manual) 86 H, Lymphocytes % (Manual) 8 L, Monocytes % (Manual) 5, Promyelocytes % 1, Platelet Estimate Normal 02/02/22 21:15: Sodium 137, Potassium 3.2 L, Chloride 105, Carbon Dioxide 18 L, Anion Gap 17.2 H, BUN 11 D, Creatinine 0.60, Estimated Creat Clear 50, Estimated GFR 97, Est GFR ( Amer) 118, Glucose 96, Calcium 8.2 L, Troponin I 0.10 H 02/03/22 01:15: Lactate 1.0 I & O for Last 24 hours: Intake & Output 01/31/22 02/01/22 02/02/22 02/03/22 11:59 11:59 11:59 11:59 Intake Total 1600 / 1600 0 / 0 1296 / 1296 1352 / 1352 Output Total 525 / 525 1200 / 1200 1750 / 1750 800 / 800 Balance 1075 / 1075 -1200 / -1200 -454 / -454 552 / 552 Weight 142 lb 9.6 oz 146 lb 8 oz 148 lb Narrative: Transfer to stepdown secondary to tachycardia, elevated troponin, and severe pneumonia. - Constitutional no acute distress - *Routine Cardiovascular Exam Present: tachycardia - *Routine Abdominal Exam Present: soft, tenderness Comments: Incision clean, dry, and intact. No erythema.
[2022-02-03 07:16] LABS: Lymphocytes # 0.5 K/mm3 (0.7-4.5); Neutrophils % 88.8 % (37.0-80.0)
[2022-02-03 07:21] LABS: Anion Gap 17.1 mEq/L (5-15); Blood Urea Nitrogen 10 mg/dl (7-17); Calcium 7.6 mg/dl (8.4-10.2); Carbon Dioxide 14 mmol/L (22.0-30.0); Chloride 108 mmol/L (98-107); Creatinine Clearance Estimated 51 mL/min (50-200); Estimated Glomerular Filt Rate 120 ml/min (>60); GFR (African American) 145 ML/MIN (>60); Glucose 111 mg/dl (74-100); Potassium 3.1 mmoL/L (3.5-5.1); Sodium 136 mmol/L (136-145)
[2022-02-03 07:48] LABS: Adenovirus,PCR Not Detected (NotDetected); Bordetella Pertussis Not Detected (NotDetected); Chlamydophila Pneumoniae, PCR Not Detected (NotDetected); Coronavirus 229E Not Detected (NotDetected); Coronavirus NL63 Not Detected (NotDetected); Coronavirus OC43 Not Detected (NotDetected); Coronovirus HKU1,PCR Not Detected (NotDetected); Human Metapneumovirus Not Detected (NotDetected); Influenza A, PCR Not Detected (NotDetected); Influenza AH1, 2009 Not Detected (NotDetected); Influenza AH1, PCR Not Detected (NotDetected); Influenza AH3,PCR Not Detected (NotDetected); Influenza B, PCR Not Detected (NotDetected); Mycoplasma Pneumoniae, PCR Not Detected (NotDetected); Parainfluenza 1, PCR Not Detected (NotDetected); Parainfluenza 2, PCR Not Detected (NotDetected); Parainfluenza 3, PCR Not Detected (NotDetected); Parainfluenza 4, PCR Not Detected (NotDetected); Respiratory Syncytial Virus Not Detected (NotDetected); Rhinovirus/Enterovirus Not Detected (NotDetected)
[2022-02-03 08:11] LABS: Basophils % 0.3 % (0.1-2.0); Eosinophils % 0.1 % (0.1-12.0); Hematocrit 34.1 % (37.0-47.0); Lymphocytes % 4.7 % (10-50); Mean Corpuscular HGB Conc 31.8 g/dL (31.8-35.4); Mean Corpuscular Hemoglobin 29.3 pg (27.0-31.2); Mean Platelet Volume 8.7 fl (7.4-10.4); Monocytes # 0.6 K/mm3 (0.1-1.0); Platelet Count 246 K/mm3 (142-424); Red Cell Distribution Width 14.2 % (11.5-17.5); White Blood Count 10.2 K/mm3 (4.8-10.8)
[2022-02-03 08:13] LABS: Hemoglobin 10.9 g/dL (12.2-16.2)
[2022-02-03 08:14] LABS: MANUAL DIFFERENTIAL MANUAL DIFFERENTIAL (MANUAL DIFF)
[2022-02-03 10:55] LABS: Lymphocytes % 7 % (10-50); Monocytes % 6 % (2-9); Neutrophils % 87 % (42-76); Total Cells Counted 100
[2022-02-03 10:56] LABS: Platelet Estimate Normal
[2022-02-03 15:22] LABS: Blood Urea Nitrogen 11 mg/dl (7-17); Calcium 7.8 mg/dl (8.4-10.2); Carbon Dioxide 18 mmol/L (22.0-30.0); Chloride 108 mmol/L (98-107); Creatinine Clearance Estimated 51 mL/min (50-200); Estimated Glomerular Filt Rate 120 ml/min (>60); GFR (African American) 145 ML/MIN (>60); Glucose 105 mg/dl (74-100); Sodium 138 mmol/L (136-145)
--- NOTE | 2022-02-03 15:43 | PC.NURSE ---
1541 notified MD Delaney regarding critical K+ of 3.0. NNO @ this time
[2022-02-03 17:46] LABS: ABG Base Excess -7.7 mmol/L (-2.4-2.3); ABG HCO3 16.6 mmhg (22.0-26.0); ABG Oxygen Saturation 92 % (90-100); ABG PCO2 25.7 mmhg (35.0-45.0); ABG PH 7.43 mmol/L (7.35-7.45); ABG PO2 59.3 mmhg (80-100); ABG TCO2 17.4 mmhg (23-27); Allen's Test Acceptable; Oxygen 12L %; Source Right Radial
--- NOTE | 2022-02-03 20:02 | PC.NURSE ---
Cardizem gtt has been between 10-15mcg this shift. Pt remains in aflutter, at times afib. Pt has been very [id number] this shift. Pt has been encouraged to use IS, IS @ best 500cc's. NG remains hooked up to low wall suction. 200mL of output noted this shift. Pt remains on 12L hi-flow NC. No other acute changes or complaints
[2022-02-04] VITALS (18 sets, daily range): BP systolic 110–171; BP diastolic 53–102; PULSE 72–152; RESP 16–30; TEMP 36.4–37.4; O2SAT 90–98; BMI 25.3
--- NOTE | 2022-02-04 07:02 | HMH.GSPN ---
Subjective Narrative: The patient states that she passed just a tiny bit of gas . She feels about the same...maybe a little better . She states that she is coughing less . Progress Note: A&P (1) Atrial fibrillation with RVR Status: Acute (2) Hospital-acquired pneumonia Status: Acute (3) Small bowel obstruction Status: Acute (4) CAD (coronary artery disease) Status: Chronic (5) COPD (chronic obstructive pulmonary disease) Status: Chronic (6) HLD (hyperlipidemia) Status: Chronic (7) HTN (hypertension) Status: Chronic (8) KM (obstructive sleep apnea) Status: Chronic (9) Postoperative ileus Status: Acute Assessment and plan: The patient continues to have a prolonged postoperative ileus. She reports passing a tiny bit of flatus . However, her abdomen remains somewhat distended and nasogastric tube is only intermittently functioning. Continue nasogastric decompression for now Increase nasogastric tube maintenance May place back to drain bag later today (10) NSTEMI (non-ST elevated myocardial infarction) Status: Acute Exam Vital signs and Labs for Last 24 Hours: Temp Pulse Resp BP Pulse Ox 98.9 F 110 H 24 110/76 96 02/04/22 00:00 02/04/22 02:00 02/04/22 02:00 02/04/22 02:00 02/04/22 03:00 Laboratory Results - last 24 hr 02/03/22 06:30: Sodium 136, Potassium 3.1 L, Chloride 108 H, Carbon Dioxide 14 L, Anion Gap 17.1 H, BUN 10, Creatinine 0.50 L, Estimated Creat Clear 51, Estimated GFR 120, Est GFR ( Amer) 145 D, Glucose 111 H, Calcium 7.6 L 02/03/22 07:40: Chlamy pneumoniae PCR Not detected, Adenovirus (PCR) Not detected, B. pertussis DNA (PCR) Not detected, Coronavirus OC43 (PCR) Not detected, Coronavirus HKU1 (PCR) Not detected, Coronavirus 229E (PCR) Not detected, Coronavirus NL63 (PCR) Not detected, Human Metapneumovir PCR Not detected, Influenza A (H1) PCR Not detected, Influ A (H1N1/09) PCR Not detected, Influenza A (H3) PCR Not detected, Influenza Type A (PCR) Not detected, Influenza Type B (PCR) Not detected, M. pneumoniae (PCR) Not detected, Parainfluenza 1 (PCR) Not detected, Parainfluenza 2 (PCR) Not detected, Parainfluenza 3 (PCR) Not detected, Parainfluenza 4 (PCR) Not detected, RSV (PCR) Not detected, Entero/Rhino (PCR) Not detected 02/03/22 08:00: WBC 10.2, RBC 3.70 L, Hgb 10.9 L, Hct 34.1 L, MCV 92.0, MCH 29.3, MCHC 31.8, RDW 14.2, Plt Count 246, MPV 8.7, Neut % (Auto) 88.8 H, Lymph % (Auto) 4.7 L, [place] % (Auto) 6.0, Eos % (Auto) 0.1, Baso % (Auto) 0.3, Neut # (Auto) 9.0 H, Lymph # (Auto) 0.5 L, [place] # (Auto) 0.6, Eos # (Auto) 0.0, Baso # (Auto) 0.0, Total Counted 100, Neutrophils % (Manual) 87 H, Lymphocytes % (Manual) 7 L, Monocytes % (Manual) 6, Platelet Estimate Normal, RBC Morphology Not Reportable 02/03/22 14:30: Sodium 138, Potassium 3.0 L, Chloride 108 H, Carbon Dioxide 18 L, Anion Gap 15.0, BUN 11, Creatinine 0.50 L, Estimated Creat Clear 51, Estimated GFR 120, Est GFR ( Amer) 145, Glucose 105 H, Calcium 7.8 L 02/03/22 17:38: Specimen Source Right radial, O2 % 12l, ABG pH 7.43, ABG pCO2 25.7 L, ABG pO2 59.3 L, ABG HCO3 16.6 L, ABG Total CO2 17.4 L, ABG O2 Saturation 92, ABG Base Excess -7.7 L, Garrett Test Acceptable I & O for Last 24 hours: Intake & Output 02/01/22 02/02/22 02/03/22 02/04/22 11:59 11:59 11:59 11:59 Intake Total 0 / 0 1296 / 1296 1352 / 1352 2260 / 2260 Output Total 1200 / 1200 1750 / 1750 800 / 800 600 / 600 Balance -1200 / -1200 -454 / -454 552 / 552 1660 / 1660 Weight 146 lb 8 oz 148 lb 152 lb 3 oz Microbiology Reports for the Last 24 Hours: Microbiology 02/03/22 18:48 Sputum - Expectorated Sputum Gram Stain - Final - Constitutional no acute distress - *Routine Respiratory Exam Absent: respiratory distress - *Routine Cardiovascular Exam Present: tachycardia - *Routine Abdominal Exam Comments: The patient's abdomen remains somewhat distended. Her incision is healing without sign
[2022-02-04 07:38] LABS: Basophils # 0.1 K/mm3 (0-0.2)
[2022-02-04 07:49] LABS: Alanine Aminotransferase 11 U/L (12-78); Albumin Level 2.9 g/dl (3.5-5.0); Albumin/Globulin Ratio 1.1 (1.1-1.8); Alkaline Phosphatase 55 U/L (38-126); Anion Gap 15.7 mEq/L (5-15); Aspartate Amino Transferase 23 U/L (14-36); Bilirubin,Total 0.7 mg/dl (0.2-1.3); Blood Urea Nitrogen 15 mg/dl (7-17); Calcium 8.1 mg/dl (8.4-10.2); Carbon Dioxide 16 mmol/L (22.0-30.0); Chloride 113 mmol/L (98-107); Creatinine Clearance Estimated 52 mL/min (50-200); Estimated Glomerular Filt Rate 97 ml/min (>60); GFR (African American) 118 ML/MIN (>60); Globulin 2.7 g/dL (1.3-3.2); Glucose 107 mg/dl (74-100); Magnesium 1.9 mg/dl (1.6-2.3); Potassium 3.7 mmoL/L (3.5-5.1); Sodium 141 mmol/L (136-145); Total Protein,Serum 5.6 g/dl (6.3-8.2)
--- NOTE | 2022-02-04 07:56 | PC.NURSE ---
[facility] gtt has been between 15-20mcg t/o shift. Pt rested well this shift, with family at bedside.NG remains in place to low wall suction. 300mL of output noted this shift. Pt remains on 12L hi-flow NC with O2 sats >90%. Patient refused to ambulate at 21:00. Pt has used IS independently t/o shift.
--- NOTE | 2022-02-04 08:28 | CA_ITS ---
APPROVED REPORT EXAM: Comprehensive 2D, Doppler, and color-flow Echocardiogram Plating Foreman: Nadira Espitia RDCS Ht: 5 ft 5 in Wt: 152lbs BSA: 1.76 BP: 110/76 mmHg Indications: AF,CAD,NSTEMI,POST OP ABN 2D Dimensions Aortic Root 4.00 cm F: 2.7 - 3.3 LA Volume 87.50 mL Left Atrium 4.20 cm F: 2.7 - 3.8 LA Volume Index 49.71 mL/m2 (M/F) 16-34 M-Mode Dimensions RVDd 3.80 cm (0.9-2.6) LA Diam 4.17 cm (1.9-4.0) LVDd 5.00 cm (3.5-5.7) Ao Diam 4.00 cm (2.0-3.7) LVDs 4.00 cm (3.5-5.7) IVSd 1.20 cm (0.6-1.1) PWd 1.00 cm (0.6-1.1) EF (Teich) 60.00% TAPSE 1.79 (<1.7) Aortic Valve AI PHT 526.00 ms Tricuspid Valve TR P. Velocity 337.00 cm/s RAP Estimate 10.00 mmHg RVSP 55.50 mmHg Left Ventricle Left atrium is mildly enlarged, left ventricle is normal size, mild concentric visually estimated ejection fraction 55% with no regional wall motion abnormality, diastolic parameters are inconclusive. Right Ventricle Right atrium and right ventricle mildly enlarged with normal contractility. Aortic Valve Aortic valve is thickened and calcified without aortic stenosis, there is mild aortic insufficiency. Mitral Valve Mitral valve leaflets are minimally thickened, there is mild mitral regurgitation Tricuspid Valve Tricuspid valve is grossly normal, there is moderate tricuspid regurgitation, calculated right ventricular systolic pressure is 50 mmHg. Pulmonic Valve Pulmonic valve is poorly visualized. Great Vessels Aortic root is normal size. Inferior vena cava is poorly visualized. Pericardium No significant pericardial effusion. Conclusion 1. Biatrial enlargement, normal left ventricular size, mild concentric left ventricular hypertrophy, visually estimated ejection fraction 55% with no regional wall motion abnormality, diastolic parameters are inconclusive. 2. Mildly enlarged right ventricle with normal contractility. 3. Thickened and calcified aortic valve without aortic stenosis, there is mild aortic insufficiency. 4. Mild mitral and tricuspid regurgitation, calculated right ventricular systolic pressure is 50 mmHg. 5. No significant pericardial effusion. 6. Inferior vena cava is poorly visualized. Electronically signed by : Arley Mann MD 02/04/2022 21:04:39
--- NOTE | 2022-02-04 09:00 | PC.NURSE ---
pt denies pain and wishes for Morphine SENIOR TEST ENGINEER to be unhooked. SENIOR TEST ENGINEER unhooked and Morphine vial discarded in sharps containter. Pt is agreeable to get OOB to chair today and to ambulate with assistance. 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 Is CDI. No redness noted. Abd continues to be slightly distended and tender upon palpation.
--- NOTE | 2022-02-04 09:59 | HMH.ACPN2 ---
Internal Medicine - PN: Subj *Date: 02/04/22 *Time: 09:59 Interval history: Patient's heart rate and blood pressure have improved somewhat overnight. Diltiazem drip has been able to be weaned down. Beta-blockers have been given intravenously given her n.p.o. status from her recent surgery. She is alert, pleasant and states that she feels somewhat better. Exam Vital signs and Labs for Last 24 Hours: Temp Pulse Resp BP Pulse Ox 99.3 F 147 H 24 171/102 H 90 L 02/04/22 08:00 02/04/22 06:00 02/04/22 06:00 02/04/22 06:00 02/04/22 07:00 Laboratory Results - last 24 hr 02/03/22 07:40: Chlamy pneumoniae PCR Not detected, Adenovirus (PCR) Not detected, B. pertussis DNA (PCR) Not detected, Coronavirus OC43 (PCR) Not detected, Coronavirus HKU1 (PCR) Not detected, Coronavirus 229E (PCR) Not detected, Coronavirus NL63 (PCR) Not detected, Human Metapneumovir PCR Not detected, Influenza A (H1) PCR Not detected, Influ A (H1N1/09) PCR Not detected, Influenza A (H3) PCR Not detected, Influenza Type A (PCR) Not detected, Influenza Type B (PCR) Not detected, M. pneumoniae (PCR) Not detected, Parainfluenza 1 (PCR) Not detected, Parainfluenza 2 (PCR) Not detected, Parainfluenza 3 (PCR) Not detected, Parainfluenza 4 (PCR) Not detected, RSV (PCR) Not detected, Entero/Rhino (PCR) Not detected 02/03/22 08:00: Total Counted 100, Neutrophils % (Manual) 87 H, Lymphocytes % (Manual) 7 L, Monocytes % (Manual) 6, Platelet Estimate Normal, RBC Morphology Not Reportable 02/03/22 14:30: Sodium 138, Potassium 3.0 L, Chloride 108 H, Carbon Dioxide 18 L, Anion Gap 15.0, BUN 11, Creatinine 0.50 L, Estimated Creat Clear 51, Estimated GFR 120, Est GFR ( Amer) 145, Glucose 105 H, Calcium 7.8 L 02/03/22 17:38: Specimen Source Right radial, O2 % 12l, ABG pH 7.43, ABG pCO2 25.7 L, ABG pO2 59.3 L, ABG HCO3 16.6 L, ABG Total CO2 17.4 L, ABG O2 Saturation 92, ABG Base Excess -7.7 L, Garrett Test Acceptable 02/04/22 07:14: Sodium 141, Potassium 3.7 D, Chloride 113 H, Carbon Dioxide 16 L, Anion Gap 15.7 H, BUN 15 D, Creatinine 0.60, Estimated Creat Clear 52, Estimated GFR 97, Est GFR ( Amer) 118, Glucose 107 H, Calcium 8.1 L, Magnesium 1.9, Total Bilirubin 0.7, AST 23, ALT 11 L, Alkaline Phosphatase 55, Total Protein 5.6 L, Albumin 2.9 L, Globulin 2.7, Albumin/Globulin Ratio 1.1 I & O for Last 24 hours: Intake & Output 02/01/22 02/02/22 02/03/22 02/04/22 11:59 11:59 11:59 11:59 Intake Total 0 / 0 1296 / 1296 1352 / 1352 4310 / 4310 Output Total 1200 / 1200 1750 / 1750 800 / 800 900 / 900 Balance -1200 / -1200 -454 / -454 552 / 552 3410 / 3410 Weight 146 lb 8 oz 148 lb 152 lb 3 oz Microbiology Reports for the Last 24 Hours: Microbiology 02/03/22 18:48 Sputum - Expectorated Sputum Gram Stain - Final Narrative: Heart rate irregular. Blood pressure good. O2 requirement is 10 L. She is alert, pleasant. Rhonchi in both lung acosta. Worse in the bases. Murmur noted on exam of heart otherwise irregular rate. Abdomen soft, slight tenderness around incision sites. No distal edema or clubbing. Assessment and Plan (1) Atrial fibrillation with RVR Status: Acute Category: Medical Code(s): I48.91 - Unspecified atrial fibrillation (2) Hospital-acquired pneumonia Status: Acute Category: Medical Code(s): J18.9 - Pneumonia, unspecified organism; Y95 - Nosocomial condition (3) Small bowel obstruction Status: Acute Category: Medical Code(s): K56.609 - Unspecified intestinal obstruction, unspecified as to partial versus complete obstruction (4) CAD (coronary artery disease) Status: Chronic Qualifiers: Coronary Disease-Associated Artery/Lesion type: unspecified vessel or lesion type [place] vs. transplanted heart: [place] heart Associated angina: unspecified whether angina present Qualified Code(s): I25.10 - Atherosclerotic heart disease of [place] coronary artery without angina pectoris Category: Medical Code(s):
--- NOTE | 2022-02-04 11:04 | PC.NURSE ---
NG tube connected to drain bag at this time
--- NOTE | 2022-02-04 12:45 | PC.NURSE ---
BM x 1
[2022-02-04 13:16] LABS: Basophils % 0.7 % (0.1-2.0); Eosinophils % 0.2 % (0.1-12.0); Hematocrit 34.1 % (37.0-47.0); Lymphocytes # 0.8 K/mm3 (0.7-4.5); Lymphocytes % 8.1 % (10-50); Mean Corpuscular HGB Conc 32.3 g/dL (31.8-35.4); Mean Corpuscular Hemoglobin 29.8 pg (27.0-31.2); Mean Corpuscular Volume 92.2 fl (81-99); Mean Platelet Volume 8.6 fl (7.4-10.4); Monocytes # 0.4 K/mm3 (0.1-1.0); Monocytes % 4.8 % (1.7-9.3); Neutrophils # 7.9 K/mm3 (1.8-7.8); Neutrophils % 86.2 % (37.0-80.0); Platelet Count 339 K/mm3 (142-424); Red Cell Distribution Width 14.4 % (11.5-17.5); White Blood Count 9.2 K/mm3 (4.8-10.8)
[2022-02-04 13:19] LABS: MANUAL DIFFERENTIAL MANUAL DIFFERENTIAL (MANUAL DIFF)
--- NOTE | 2022-02-04 13:50 | DIET.NUTRFU ---
Patient continues NPO since 01/30, GI following s/p procedure. NG drain in place and BM noted today. IVF are in place for hydration and labs are WNL. Will continue to monitor and when appropriate to start oral diet.
[2022-02-04 14:29] LABS: Lymphocytes % 7 % (10-50); Monocytes % 3 % (2-9); Neutrophils % 90 % (42-76); Platelet Estimate Normal; Total Cells Counted 100
--- NOTE | 2022-02-04 17:30 | PC.NURSE ---
Dilt gtt turned OFF at this time. HR 70s and is Afib controlled. Dr. Martinez aware. Pt has ambulated in room multiple times today. Has denied pain today. Had 2 soft BMs today. Continues to pass flatus. Gastric contents via NG tube has decreased drastically throughout the day.
[2022-02-05] VITALS (15 sets, daily range): BP systolic 120–164; BP diastolic 64–84; PULSE 70–101; RESP 16–24; TEMP 36.7–37.7; O2SAT 91–97; BMI 25.2
--- NOTE | 2022-02-05 06:59 | HMH.GSPN ---
Subjective Patient reports: flatus, bowel movement Narrative: The patient states that she feels quite a bit better . Per nursing staff, the patient's nasogastric output (drain bag) has fluctuated between scant and quite a lot . Progress Note: A&P (1) Atrial fibrillation with RVR Status: Acute (2) Hospital-acquired pneumonia Status: Acute (3) Small bowel obstruction Status: Acute (4) CAD (coronary artery disease) Status: Chronic (5) COPD (chronic obstructive pulmonary disease) Status: Chronic (6) HLD (hyperlipidemia) Status: Chronic (7) HTN (hypertension) Status: Chronic (8) KM (obstructive sleep apnea) Status: Chronic (9) Postoperative ileus Status: Acute Assessment and plan: Improving. The patient has had increased flatus and multiple bowel movements. Nasogastric output currently seems exceptionally variable. Remove nasogastric tube Clear liquids (10) NSTEMI (non-ST elevated myocardial infarction) Status: Acute Exam Vital signs and Labs for Last 24 Hours: Temp Pulse Resp BP Pulse Ox 99.0 F 81 19 138/74 95 02/05/22 06:00 02/05/22 06:10 02/05/22 06:00 02/05/22 06:00 02/05/22 06:10 Laboratory Results - last 24 hr 02/04/22 07:14: Sodium 141, Potassium 3.7 D, Chloride 113 H, Carbon Dioxide 16 L, Anion Gap 15.7 H, BUN 15 D, Creatinine 0.60, Estimated Creat Clear 52, Estimated GFR 97, Est GFR ( Amer) 118, Glucose 107 H, Calcium 8.1 L, Magnesium 1.9, Total Bilirubin 0.7, AST 23, ALT 11 L, Alkaline Phosphatase 55, Total Protein 5.6 L, Albumin 2.9 L, Globulin 2.7, Albumin/Globulin Ratio 1.1 02/04/22 13:15: WBC 9.2, RBC 3.70 L, Hgb 11.0 L, Hct 34.1 L, MCV 92.2, MCH 29.8, MCHC 32.3, RDW 14.4, Plt Count 339 D, MPV 8.6, Neut % (Auto) 86.2 H, Lymph % (Auto) 8.1 L, [place] % (Auto) 4.8, Eos % (Auto) 0.2, Baso % (Auto) 0.7, Neut # (Auto) 7.9 H, Lymph # (Auto) 0.8, [place] # (Auto) 0.4, Eos # (Auto) 0.0, Baso # (Auto) 0.1, Total Counted 100, Neutrophils % (Manual) 90 H, Lymphocytes % (Manual) 7 L, Monocytes % (Manual) 3, Platelet Estimate Normal, RBC Morphology Not Reportable I & O for Last 24 hours: Intake & Output 02/02/22 02/03/22 02/04/22 02/05/22 11:59 11:59 11:59 11:59 Intake Total 1296 / 1296 1352 / 1352 4310 / 4310 2531 / 2531 Output Total 1750 / 1750 800 / 800 900 / 1400 1974 Balance -454 / -454 552 / 552 3410 / 2910 556 / 556 Weight 148 lb 152 lb 3 oz 151 lb 7.639 oz Microbiology Reports for the Last 24 Hours: Microbiology 02/03/22 01:20 Blood Blood Culture - Preliminary NO GROWTH AFTER 48 HOURS 02/03/22 01:15 Blood Blood Culture - Preliminary NO GROWTH AFTER 48 HOURS - Constitutional no acute distress - *Routine Respiratory Exam Absent: respiratory distress - *Routine Cardiovascular Exam Absent: tachycardia - *Routine Abdominal Exam Present: soft
--- NOTE | 2022-02-05 07:35 | HMH.ACPN2 ---
Internal Medicine - PN: Subj *Date: 02/05/22 *Time: 07:35 Interval history: Overnight patient did well. Has gone back into sinus rhythm. Blood pressure has been good. Has been off Cardizem. Patient is alert, talking, has had a couple of more bowel movements. Exam Vital signs and Labs for Last 24 Hours: Temp Pulse Resp BP Pulse Ox 99.0 F 81 19 138/74 95 02/05/22 06:00 02/05/22 06:10 02/05/22 06:00 02/05/22 06:00 02/05/22 06:10 Laboratory Results - last 24 hr 02/04/22 07:14: Sodium 141, Potassium 3.7 D, Chloride 113 H, Carbon Dioxide 16 L, Anion Gap 15.7 H, BUN 15 D, Creatinine 0.60, Estimated Creat Clear 52, Estimated GFR 97, Est GFR ( Amer) 118, Glucose 107 H, Calcium 8.1 L, Magnesium 1.9, Total Bilirubin 0.7, AST 23, ALT 11 L, Alkaline Phosphatase 55, Total Protein 5.6 L, Albumin 2.9 L, Globulin 2.7, Albumin/Globulin Ratio 1.1 02/04/22 13:15: WBC 9.2, RBC 3.70 L, Hgb 11.0 L, Hct 34.1 L, MCV 92.2, MCH 29.8, MCHC 32.3, RDW 14.4, Plt Count 339 D, MPV 8.6, Neut % (Auto) 86.2 H, Lymph % (Auto) 8.1 L, [place] % (Auto) 4.8, Eos % (Auto) 0.2, Baso % (Auto) 0.7, Neut # (Auto) 7.9 H, Lymph # (Auto) 0.8, [place] # (Auto) 0.4, Eos # (Auto) 0.0, Baso # (Auto) 0.1, Total Counted 100, Neutrophils % (Manual) 90 H, Lymphocytes % (Manual) 7 L, Monocytes % (Manual) 3, Platelet Estimate Normal, RBC Morphology Not Reportable I & O for Last 24 hours: Intake & Output 02/02/22 02/03/22 02/04/22 02/05/22 11:59 11:59 11:59 11:59 Intake Total 1296 / 1296 1352 / 1352 4310 / 4310 2531 / 2531 Output Total 1750 / 1750 800 / 800 900 / 1400 1974 Balance -454 / -454 552 / 552 3410 / 2910 556 / 556 Weight 148 lb 152 lb 3 oz 151 lb 7.639 oz Microbiology Reports for the Last 24 Hours: Microbiology 02/03/22 01:20 Blood Blood Culture - Preliminary NO GROWTH AFTER 48 HOURS 02/03/22 01:15 Blood Blood Culture - Preliminary NO GROWTH AFTER 48 HOURS Narrative: Alert, pleasant, oriented. Good air movement. Minimal crackles. Heart rate regular. Abdomen soft, minimal tenderness. No distention. No clubbing or cyanosis or edema. Assessment and Plan (1) Atrial fibrillation with RVR Status: Acute Category: Medical Code(s): I48.91 - Unspecified atrial fibrillation (2) Hospital-acquired pneumonia Status: Acute Category: Medical Code(s): J18.9 - Pneumonia, unspecified organism; Y95 - Nosocomial condition (3) Small bowel obstruction Status: Acute Category: Medical Code(s): K56.609 - Unspecified intestinal obstruction, unspecified as to partial versus complete obstruction (4) CAD (coronary artery disease) Status: Chronic Qualifiers: Coronary Disease-Associated Artery/Lesion type: unspecified vessel or lesion type [place] vs. transplanted heart: [place] heart Associated angina: unspecified whether angina present Qualified Code(s): I25.10 - Atherosclerotic heart disease of [place] coronary artery without angina pectoris Category: Medical Code(s): I25.10 - Atherosclerotic heart disease of [place] coronary artery without angina pectoris (5) COPD (chronic obstructive pulmonary disease) Status: Chronic Qualifiers: COPD type: unspecified COPD Qualified Code(s): J44.9 - Chronic obstructive pulmonary disease, unspecified Category: Medical Code(s): J44.9 - Chronic obstructive pulmonary disease, unspecified (6) HLD (hyperlipidemia) Status: Chronic Qualifiers: Hyperlipidemia type: mixed hyperlipidemia Qualified Code(s): E78.2 - Mixed hyperlipidemia Category: Medical Code(s): E78.5 - Hyperlipidemia, unspecified (7) HTN (hypertension) Status: Chronic Qualifiers: Hypertension type: essential hypertension Category: Medical Code(s): I10 - Essential (primary) hypertension (8) KM (obstructive sleep apnea) Status: Chronic Category: Medical Code(s): G47.33 - Obstructive sleep apnea (adult)
--- NOTE | 2022-02-05 08:33 | PC.NURSE ---
NG dc'd per order, pt tolerated well
[2022-02-05 08:57] LABS: Basophils # 0.1 K/mm3 (0-0.2); Basophils % 0.5 % (0.1-2.0); Eosinophils % 0.5 % (0.1-12.0); Hematocrit 27.9 % (37.0-47.0); Hemoglobin 9.6 g/dL (12.2-16.2); Lymphocytes # 0.9 K/mm3 (0.7-4.5); Lymphocytes % 10.7 % (10-50); Mean Corpuscular HGB Conc 34.4 g/dL (31.8-35.4); Mean Corpuscular Hemoglobin 29.8 pg (27.0-31.2); Mean Corpuscular Volume 86.6 fl (81-99); Mean Platelet Volume 9.1 fl (7.4-10.4); Monocytes # 0.7 K/mm3 (0.1-1.0); Monocytes % 7.5 % (1.7-9.3); Neutrophils # 6.9 K/mm3 (1.8-7.8); Neutrophils % 80.7 % (37.0-80.0); Platelet Count 328 K/mm3 (142-424); Red Blood Count 3.22 M/mm3 (4.20-5.40); Red Cell Distribution Width 14.5 % (11.5-17.5); White Blood Count 8.6 K/mm3 (4.8-10.8)
[2022-02-05 09:36] LABS: Chloride 108 mmol/L (98-107); Sodium 143 mmol/L (136-145)
[2022-02-05 09:39] LABS: Blood Urea Nitrogen 20 mg/dl (7-17); Creatinine Clearance Estimated 52 mL/min (50-200); Estimated Glomerular Filt Rate 97 ml/min (>60); GFR (African American) 118 ML/MIN (>60)
[2022-02-05 09:40] LABS: Anion Gap 14.9 mEq/L (5-15); Calcium 7.2 mg/dl (8.4-10.2); Carbon Dioxide 23 mmol/L (22.0-30.0); Glucose 103 mg/dl (74-100)
[2022-02-05 10:04] LABS: Potassium 2.9 mmoL/L (3.5-5.1)
--- NOTE | 2022-02-05 10:11 | HMH.PTEV ---
Physical Therapy Evaluation Rehab PT IP Evaluation Start: 02/05/22 07:34 Freq: ONCE Status: Active Protocol: Document 02/05/22 10:08 PHOAUDREY (Rec: 02/05/22 10:11 PHORNE [id number]) Subjective/History History History 76 yowf adm to [facility] with SBO now S/P ex-lap with post-op HAP and ileus. She reports she lives alone and is generally independent with all mobility without AD. Subjective Subjective She reports mild discomfort in her abdomen with mobility and mild SOA. Rehab PT IP Eval Objective Appearance Patient Behavior Appropriate Patient Orientation Person,Place,Time Difficulty following instructions none Speech Pattern Clear Ambulation Patient Able to Ambulate Yes Ambulation Observation IP General Gait Pattern Observation Shuffling Step Ambulation Distance (feet) 10 Ambulation Assistive Device None Ambulation Ability Minimal x 1 (25% assist) Balance Ability to Arise Able, uses arms to help Sitting Balance Steady, safe Standing Balance Steady, wide stance Dynamic Sitting Balance Ability Good Dynamic Standing Balance Ability Fair Transfers Bed Transfer Ability Minimal x 1 (25% assist) Chair Transfer Ability Minimal x 1 (25% assist) Sit to Stand Bed Transfer Ability Minimal x 1 (25% assist) Sit to Stand Chair Transfer Ability Minimal x 1 (25% assist) Rehab PT IP prob,goals,plan Problems Date of Evaluation: 02/05/22 PT IP Problems Bed Mobility,Transfers,Gait Rehab Potential Rehab Potential Good Plan PT Intervention Plan Bed Mobility,Transfers,Gait, Self care,Therapeutic Exercise PT Plan Frequency BID Duration LOS Discharge Goals Bed Transfer Ability Contact Guard/Hand Hold Sit to Stand Chair Transfer Ability Contact Guard/Hand Hold Ambulation Assistive Device None Ambulation Distance (feet) 30 Discharge Plan PT Discharge Plan Pt is most appropriate for rehab placement at this time, but could return home once medically stable as mobility and strength improves. G -code Required No Eval Complexity Eval Charge Codes 88634 - Moderate Complexity PHYSICIAN CERTIFICATION: I certify the specified therapy services for Nadira Helm are required, authorized, and reviewed every 30 days.
--- NOTE | 2022-02-05 11:49 | HMH.OTEV ---
OT Inpatient Evaluation Rehab OT IP Evaluation Start: 02/05/22 07:34 Freq: ONCE Status: Complete Protocol: Document 02/05/22 10:44 RASHAUN (Rec: 02/05/22 10:49 RASHAUN [id number]) Rehab OT IP Assessment Subjective History 76-year-old female with longstanding history of small bowel obstruction. Had surgery about 18 years ago for an obstruction but has had a few repeat episodes since. Most recent was 3 years ago. No surgery since her initial procedure. She presented to the ER yesterday evening after having nausea and vomiting for 2 to 3 days. No diarrhea. No blood in vomit or stool. Imaging showed small bowel obstruction. Labs relatively unremarkable. Decision made to admit for bowel rest and surgery consult. On interview this morning, she states that she is feeling somewhat better. Still sore in her belly. No nausea today . Is somewhat hungry. No vomiting overnight. Afebrile and hemodynamically stable. On 01/30/22- Patient had Small bowel obstruction. [facility] History I have reviewed the patient's past medical history: Yes Medical History: Reports:: Chronic Obstructive Pulmonary Disease (COPD), Coronary Artery Disease, Gastroesophageal Reflux Disease(GERD), Hyperlipidemia, Palpitations Subjective I am feeling better. Patient lives alone in 1 story home with 1-2 BALBIR. Patient independent wtih ADLs and fx'l mobility prior to hospitalization. Objective Patient Orientation Person,Place,Name,Birthday, Year Upper Extremity Gross ROM WFL Assist Level Minimal x 1 (
--- NOTE | 2022-02-05 14:41 | SW/DCPLANNER ---
Addendum entered by Mary Ann Arthur 02/12/22 11:27: [facility] home health services will begin Wednesday/Wednesday per Vince. Addendum entered by Mary Ann Arthur 02/12/22 10:06: The plan for this patient is to discharge home today. I have faxed patient information/order to Vince with [facility]. I will follow up with Vince once patient information is reviewed. Addendum entered by Mary Ann Arthur 02/09/22 09:52: Updated patient information has been faxed to Hilary fang/ [facility]. Discharge date is unknown at this time. Addendum entered by Mary Ann Arthur 02/06/22 11:28: Updated patient information has been faxed to Hilary at [facility]. Original Note: I spoke with this patient regarding discharge plans once medically stable for discharge from hospital. Patient stated that ultimately she would prefer to return home alone w/ neighbor checking on her at time of discharge. I explained SNF level of care to patient and she is ONLY agreeable to placement at [facility] IF necessary at time of discharge. Patient information has been faxed to Hilary fang/ [facility]ric Marin at this time. Dr Martinez stated that pending no further setbacks patient will not be ready for discharge till weekend of first of next week. I will continue to follow up with patient, Aric Marin and .
--- NOTE | 2022-02-05 16:32 | PC.NURSE ---
Pt is alert and oriented x4. Lungs are clear and diminished. She remains on 6L NC high flow. Bowel sounds are hypo x4. Abdomen is soft and distended. Midline incision has kings and is open to air. Some minor crusting noted to some of the kings. No s/s of infection noted. She has had 1 BM today. She reports having some gas, notified and simethicone 80mg po q6hrs prn ordered. She was up to the chair for approx 4hrs today. She was assisted back to bed w/assist x1. She's been NSR on telemetry. She is tolerating her clear liquid diet. Family has been to visit and is supportive.
[2022-02-06] VITALS (12 sets, daily range): BP systolic 124–166; BP diastolic 71–95; PULSE 70–120; RESP 18–30; TEMP 36.8–37.7; O2SAT 90–96; BMI 26.3
--- NOTE | 2022-02-06 01:32 | PC.NURSE ---
Notified MD floorperson, Pt's HR was sustaining 130-140's, BP had increased 166/80, pt denied any chest pain. Heart monitor shows Sinus tach. MD floorperson gave order to repeat PO Metoprolol 25mg, will continue to monitor.
[2022-02-06 05:37] LABS: Basophils # 0.1 K/mm3 (0-0.2); Basophils % 0.9 % (0.1-2.0); Eosinophils % 0.4 % (0.1-12.0); Hematocrit 27.3 % (37.0-47.0); Hemoglobin 8.9 g/dL (12.2-16.2); Lymphocytes # 0.9 K/mm3 (0.7-4.5); Lymphocytes % 12.8 % (10-50); Mean Corpuscular HGB Conc 32.8 g/dL (31.8-35.4); Mean Corpuscular Hemoglobin 29.8 pg (27.0-31.2); Mean Corpuscular Volume 90.9 fl (81-99); Mean Platelet Volume 8.2 fl (7.4-10.4); Monocytes # 0.3 K/mm3 (0.1-1.0); Monocytes % 4.5 % (1.7-9.3); Neutrophils # 5.9 K/mm3 (1.8-7.8); Neutrophils % 81.4 % (37.0-80.0); Platelet Count 296 K/mm3 (142-424); Red Cell Distribution Width 14.4 % (11.5-17.5); White Blood Count 7.2 K/mm3 (4.8-10.8)
[2022-02-06 05:48] LABS: Anion Gap 7.5 mEq/L (5-15); Blood Urea Nitrogen 18 mg/dl (7-17); Calcium 7.4 mg/dl (8.4-10.2); Carbon Dioxide 30 mmol/L (22.0-30.0); Chloride 104 mmol/L (98-107); Creatinine Clearance Estimated 54 mL/min (50-200); Estimated Glomerular Filt Rate 97 ml/min (>60); GFR (African American) 118 ML/MIN (>60); Glucose 112 mg/dl (74-100); Sodium 139 mmol/L (136-145)
--- NOTE | 2022-02-06 06:23 | HMH.ACPN2 ---
Internal Medicine - PN: Subj *Date: 02/06/22 *Time: 07:10 Interval history: Showing marginal improvement. Worked with physical therapy yesterday. Stable on 6 L oxygen. Afebrile overnight. Passing flatus. Tolerating clear liquid diet. Tolerating oral medication for A. fib, heart rate remains controlled at goal. Exam Vital signs and Labs for Last 24 Hours: Temp Pulse Resp BP Pulse Ox 99.0 F 90 18 147/81 H 96 02/06/22 04:00 02/06/22 06:00 02/06/22 04:00 02/06/22 04:00 02/06/22 06:00 Laboratory Results - last 24 hr 02/05/22 08:40: WBC 8.6, RBC 3.22 L, Hgb 9.6 L D, Hct 27.9 L, MCV 86.6, MCH 29.8, MCHC 34.4, RDW 14.5, Plt Count 328, MPV 9.1, Neut % (Auto) 80.7 H, Lymph % (Auto) 10.7, [place] % (Auto) 7.5, Eos % (Auto) 0.5, Baso % (Auto) 0.5, Neut # (Auto) 6.9, Lymph # (Auto) 0.9, [place] # (Auto) 0.7, Eos # (Auto) 0.0, Baso # (Auto) 0.1 02/05/22 08:40: Sodium 143, Potassium 2.9 L* D, Chloride 108 H, Carbon Dioxide 23, Anion Gap 14.9, BUN 20 H D, Creatinine 0.60, Estimated Creat Clear 52, Estimated GFR 97, Est GFR ( Amer) 118, Glucose 103 H, Calcium 7.2 L 02/06/22 05:16: WBC 7.2, RBC 3.00 L, Hgb 8.9 L, Hct 27.3 L, MCV 90.9, MCH 29.8, MCHC 32.8, RDW 14.4, Plt Count 296, MPV 8.2, Neut % (Auto) 81.4 H, Lymph % (Auto) 12.8, [place] % (Auto) 4.5, Eos % (Auto) 0.4, Baso % (Auto) 0.9, Neut # (Auto) 5.9, Lymph # (Auto) 0.9, [place] # (Auto) 0.3, Eos # (Auto) 0.0, Baso # (Auto) 0.1 I & O for Last 24 hours: Intake & Output 02/03/22 02/04/22 02/05/22 02/06/22 23:59 23:59 23:59 23:59 Intake Total 3612 / 3612 3570 / 3570 4557 / 4807 959 / 959 Output Total 1250 / 1250 1950 / 2075 825 / 825 100 / 100 Balance 2362 / 2362 1620 / 1495 3732 / 3982 859 / 859 Weight 67.132 kg 69.031 kg 68.709 kg 71.668 kg Microbiology Reports for the Last 24 Hours: Microbiology 02/03/22 18:48 Sputum - Expectorated Sputum Gram Stain - Final 02/03/22 18:48 Sputum - Expectorated Sputum Sputum Culture - Preliminary Narrative: - Constitutional NAD on 6L NC, average body habitus, chronically ill appearing - *Routine HEENT Exam Head: Present: normocephalic Eye: Present: EOMI, PERRL ENT: Present: mucous membranes moist; NG in right nare; NC in place - *Routine Neck Exam Present: supple. Absent: lymphadenopathy - *Routine Respiratory Exam Present: accessory muscle use, wheezes, crackles - *Routine Cardiovascular Exam Present: Regular rhythm, controlled rate. - *Routine Abdominal Exam Present: normoactive bowel sounds, intervally improved tenderness (Diffuse); No rebound - *Routine Extremities Exam Absent: cyanosis, clubbing, edema - *Routine Skin Exam Present: warm. Absent: rash - *Routine Neurological Exam Present: alert, oriented X3 Assessment and Plan (1) Atrial fibrillation with RVR Status: Acute Category: Medical Code(s): I48.91 - Unspecified atrial fibrillation (2) Hospital-acquired pneumonia Status: Acute Category: Medical Code(s): J18.9 - Pneumonia, unspecified organism; Y95 - Nosocomial condition (3) Small bowel obstruction Status: Acute Category: Medical Code(s): K56.609 - Unspecified intestinal obstruction, unspecified as to partial versus complete obstruction (4) CAD (coronary artery disease) Status: Chronic Qualifiers: Coronary Disease-Associated Artery/Lesion type: unspecified vessel or lesion type [place] vs. transplanted heart: [place] heart Associated angina: unspecified whether angina present Qualified Code(s): I25.10 - Atherosclerotic heart disease of [place] coronary artery without angina pectoris Category: Medical Code(s): I25.10 - Atherosclerotic heart disease of [place] coronary artery without angina pectoris (5) COPD (chronic obstructive pulmonary disease) Status: Chronic Qualifiers: COPD type: unspecified COPD Qualified Code(s): J44.9 - Chronic obstructive pulmonary disease, unspecified Category: Medical Code(s): J44.9 - Chronic obstruct
[2022-02-06 06:37] LABS: Potassium 2.5 mmoL/L (3.5-5.1)
--- NOTE | 2022-02-06 06:44 | HMH.GSPN ---
Subjective Patient reports: no new complaints, feels better, flatus Narrative: She states that she had a few bowel movements yesterday but thinks that she will do better with an enema . Progress Note: A&P (1) Atrial fibrillation with RVR Status: Acute (2) Hospital-acquired pneumonia Status: Acute (3) Small bowel obstruction Status: Acute Assessment and plan: Overall, doing fairly well status post exploratory laparotomy with extensive lysis of adhesions. Remove one half of kings Continue to increase ambulation (4) CAD (coronary artery disease) Status: Chronic (5) COPD (chronic obstructive pulmonary disease) Status: Chronic (6) HLD (hyperlipidemia) Status: Chronic (7) HTN (hypertension) Status: Chronic (8) KM (obstructive sleep apnea) Status: Chronic (9) Postoperative ileus Status: Acute Assessment and plan: Continuing to slowly improve. The patient has requested an enema and this has been ordered. Full liquid diet ordered (10) NSTEMI (non-ST elevated myocardial infarction) Status: Acute Exam Vital signs and Labs for Last 24 Hours: Temp Pulse Resp BP Pulse Ox 99.0 F 90 18 147/81 H 96 02/06/22 04:00 02/06/22 06:00 02/06/22 04:00 02/06/22 04:00 02/06/22 06:00 Laboratory Results - last 24 hr 02/05/22 08:40: WBC 8.6, RBC 3.22 L, Hgb 9.6 L D, Hct 27.9 L, MCV 86.6, MCH 29.8, MCHC 34.4, RDW 14.5, Plt Count 328, MPV 9.1, Neut % (Auto) 80.7 H, Lymph % (Auto) 10.7, [place] % (Auto) 7.5, Eos % (Auto) 0.5, Baso % (Auto) 0.5, Neut # (Auto) 6.9, Lymph # (Auto) 0.9, [place] # (Auto) 0.7, Eos # (Auto) 0.0, Baso # (Auto) 0.1 02/05/22 08:40: Sodium 143, Potassium 2.9 L* D, Chloride 108 H, Carbon Dioxide 23, Anion Gap 14.9, BUN 20 H D, Creatinine 0.60, Estimated Creat Clear 52, Estimated GFR 97, Est GFR ( Amer) 118, Glucose 103 H, Calcium 7.2 L 02/06/22 05:16: WBC 7.2, RBC 3.00 L, Hgb 8.9 L, Hct 27.3 L, MCV 90.9, MCH 29.8, MCHC 32.8, RDW 14.4, Plt Count 296, MPV 8.2, Neut % (Auto) 81.4 H, Lymph % (Auto) 12.8, [place] % (Auto) 4.5, Eos % (Auto) 0.4, Baso % (Auto) 0.9, Neut # (Auto) 5.9, Lymph # (Auto) 0.9, [place] # (Auto) 0.3, Eos # (Auto) 0.0, Baso # (Auto) 0.1 02/06/22 05:16: Sodium 139, Potassium 2.5 L*, Chloride 104, Carbon Dioxide 30, Anion Gap 7.5, BUN 18 H, Creatinine 0.60, Estimated Creat Clear 54, Estimated GFR 97, Est GFR ( Amer) 118, Glucose 112 H, Calcium 7.4 L I & O for Last 24 hours: Intake & Output 02/03/22 02/04/22 02/05/22 02/06/22 11:59 11:59 11:59 11:59 Intake Total 1352 / 1352 4310 / 4310 3251 / 3731 3785 / 3785 Output Total 800 / 800 900 / 1400 2175 / 2175 400 / 400 Balance 552 / 552 3410 / 2910 1076 / 1556 3385 / 3385 Weight 148 lb 152 lb 3 oz 151 lb 7.639 oz 158 lb Microbiology Reports for the Last 24 Hours: Microbiology 02/03/22 18:48 Sputum - Expectorated Sputum Gram Stain - Final 02/03/22 18:48 Sputum - Expectorated Sputum Sputum Culture - Preliminary - Constitutional no acute distress - *Routine Respiratory Exam Absent: respiratory distress - *Routine Cardiovascular Exam Absent: tachycardia - *Routine Abdominal Exam Present: soft Comments: incision c/d/i. no erythema.
--- NOTE | 2022-02-06 11:06 | DIET.NUTRFU ---
Spoke to nursing and patient, she is now on full liquids previously on clear. Her caloric and protein intake has been depleted d/t recent GI procedure. She is using some suction to help with the [place]. She is now on ABT tx for PNA, tx for AFIB and slowly advancing diet d/t small bowel obstruction. Based on limited calories available on full liquids, will start ensure on each of her tray to help meet nutritional needs. 2 BM noted yesterday, good urine output and IVF continued for hydration. Labs reviewed: Na 139, K 2.5L, BUN 18, Cr 0.6 and glucose 112H, KCL ordered. Will continue to monitor progress with oral diet and intake
--- NOTE | 2022-02-06 11:32 | PC.NURSE ---
Removed 10 kings and replaced with sterie strips. Pt tolerated well. Will continue to monitor.
--- NOTE | 2022-02-06 12:31 | PC.NURSE ---
Addendum entered by Toney Dia RN 02/06/22 12:33: Pt did also walk outside of room and tolerated well. Pt has also tolerated full liquids thus far. Mx continues. Family @ bedside. Original Note: Have removed every other staple to abd incision and applied every steri strips. Pt has also refused enemas at this time. Pt did have BM this am.
--- NOTE | 2022-02-06 13:43 | HMH.ACPN ---
Internal Medicine - PN: Subj *Date: 02/06/22 *Time: 13:43 Exam Vital signs and Labs for Last 24 Hours: Temp Pulse Resp BP Pulse Ox 98.3 F 87 19 130/95 H 91 L 02/06/22 12:00 02/06/22 12:55 02/06/22 12:00 02/06/22 12:00 02/06/22 12:55 Laboratory Results - last 24 hr 02/06/22 05:16: WBC 7.2, RBC 3.00 L, Hgb 8.9 L, Hct 27.3 L, MCV 90.9, MCH 29.8, MCHC 32.8, RDW 14.4, Plt Count 296, MPV 8.2, Neut % (Auto) 81.4 H, Lymph % (Auto) 12.8, [place] % (Auto) 4.5, Eos % (Auto) 0.4, Baso % (Auto) 0.9, Neut # (Auto) 5.9, Lymph # (Auto) 0.9, [place] # (Auto) 0.3, Eos # (Auto) 0.0, Baso # (Auto) 0.1 02/06/22 05:16: Sodium 139, Potassium 2.5 L*, Chloride 104, Carbon Dioxide 30, Anion Gap 7.5, BUN 18 H, Creatinine 0.60, Estimated Creat Clear 54, Estimated GFR 97, Est GFR ( Amer) 118, Glucose 112 H, Calcium 7.4 L I & O for Last 24 hours: Intake & Output 02/03/22 02/04/22 02/05/22 02/06/22 23:59 23:59 23:59 23:59 Intake Total 3612 / 3612 3570 / 3570 4557 / 4807 959 / 959 Output Total 1250 / 1250 1950 / 2075 825 / 825 300 / 300 Balance 2362 / 2362 1620 / 1495 3732 / 3982 659 / 659 Weight 67.132 kg 69.031 kg 68.709 kg 71.668 kg Microbiology Reports for the Last 24 Hours: Microbiology 02/03/22 18:48 Sputum - Expectorated Sputum Gram Stain - Final 02/03/22 18:48 Sputum - Expectorated Sputum Sputum Culture - Preliminary Assessment and Plan (1) Atrial fibrillation with RVR Status: Acute Category: Medical Code(s): I48.91 - Unspecified atrial fibrillation (2) Hospital-acquired pneumonia Status: Acute Category: Medical Code(s): J18.9 - Pneumonia, unspecified organism; Y95 - Nosocomial condition (3) Small bowel obstruction Status: Acute Category: Medical Code(s): K56.609 - Unspecified intestinal obstruction, unspecified as to partial versus complete obstruction (4) CAD (coronary artery disease) Status: Chronic Qualifiers: Coronary Disease-Associated Artery/Lesion type: unspecified vessel or lesion type [place] vs. transplanted heart: [place] heart Associated angina: unspecified whether angina present Qualified Code(s): I25.10 - Atherosclerotic heart disease of [place] coronary artery without angina pectoris Category: Medical Code(s): I25.10 - Atherosclerotic heart disease of [place] coronary artery without angina pectoris (5) COPD (chronic obstructive pulmonary disease) Status: Chronic Qualifiers: COPD type: unspecified COPD Qualified Code(s): J44.9 - Chronic obstructive pulmonary disease, unspecified Category: Medical Code(s): J44.9 - Chronic obstructive pulmonary disease, unspecified (6) HLD (hyperlipidemia) Status: Chronic Qualifiers: Hyperlipidemia type: mixed hyperlipidemia Qualified Code(s): E78.2 - Mixed hyperlipidemia Category: Medical Code(s): E78.5 - Hyperlipidemia, unspecified (7) HTN (hypertension) Status: Chronic Qualifiers: Hypertension type: essential hypertension Category: Medical Code(s): I10 - Essential (primary) hypertension (8) KM (obstructive sleep apnea) Status: Chronic Category: Medical Code(s): G47.33 - Obstructive sleep apnea (adult) (pediatric) (9) Postoperative ileus Status: Acute Category: Medical Code(s): K91.89 - Other postprocedural complications and disorders of digestive system; K56.7 - Ileus, unspecified (10) NSTEMI (non-ST elevated myocardial infarction) Status: Acute Category: Medical Code(s): I21.4 - Non-ST elevation (NSTEMI) myocardial infarction The patient's infection will respond to the chosen ABx?: Yes Is the patient receiving the right drug, dose, and route?: Yes Could a more targeted ABx be ordered?: No (AFEBRILE, WBC WNL, NO GROWTH IN CX.)
[2022-02-07] VITALS (9 sets, daily range): BP systolic 146–162; BP diastolic 78–99; PULSE 70–108; RESP 16–24; TEMP 36.7–37.3; O2SAT 6–97; BMI 26.2
[2022-02-07 07:19] LABS: Basophils # 0.1 K/mm3 (0-0.2); Eosinophils # 0.2 K/mm3 (0.0-0.4); Eosinophils % 2.9 % (0.1-12.0); Hematocrit 29.2 % (37.0-47.0); Hemoglobin 9.2 g/dL (12.2-16.2); Lymphocytes # 0.8 K/mm3 (0.7-4.5); Lymphocytes % 10.7 % (10-50); Mean Corpuscular HGB Conc 31.4 g/dL (31.8-35.4); Mean Corpuscular Hemoglobin 29.4 pg (27.0-31.2); Mean Corpuscular Volume 93.6 fl (81-99); Mean Platelet Volume 8.5 fl (7.4-10.4); Monocytes # 0.3 K/mm3 (0.1-1.0); Monocytes % 3.4 % (1.7-9.3); Neutrophils # 6.3 K/mm3 (1.8-7.8); Platelet Count 323 K/mm3 (142-424); Red Blood Count 3.12 M/mm3 (4.20-5.40); Red Cell Distribution Width 15.1 % (11.5-17.5); White Blood Count 7.7 K/mm3 (4.8-10.8)
[2022-02-07 07:27] LABS: Alanine Aminotransferase 23 U/L (12-78); Albumin Level 2.5 g/dl (3.5-5.0); Alkaline Phosphatase 54 U/L (38-126); Anion Gap 6.4 mEq/L (5-15); Aspartate Amino Transferase 34 U/L (14-36); Bilirubin,Total 0.4 mg/dl (0.2-1.3); Blood Urea Nitrogen 15 mg/dl (7-17); Calcium 7.2 mg/dl (8.4-10.2); Carbon Dioxide 27 mmol/L (22.0-30.0); Chloride 108 mmol/L (98-107); Creatinine Clearance Estimated 54 mL/min (50-200); Estimated Glomerular Filt Rate 120 ml/min (>60); GFR (African American) 145 ML/MIN (>60); Globulin 2.6 g/dL (1.3-3.2); Glucose 98 mg/dl (74-100); Magnesium 1.6 mg/dl (1.6-2.3); Potassium 3.4 mmoL/L (3.5-5.1); Sodium 138 mmol/L (136-145); Total Protein,Serum 5.1 g/dl (6.3-8.2)
--- NOTE | 2022-02-07 07:49 | HMH.ACPN2 ---
Internal Medicine - PN: Subj *Date: 02/07/22 *Time: 09:18 Interval history: Did well overnight. No fevers. Continues to have progress with bowel function. Tolerating current diet full liquid. Worked with physical therapy yesterday, walked between 50 and 75 feet with assistance and a walker. Stable oxygen requirement. Heart rate better controlled. Denies nausea, chest pain, syncope. Exam Vital signs and Labs for Last 24 Hours: Temp Pulse Resp BP Pulse Ox 98.2 F 84 24 158/80 H 91 L 02/07/22 04:00 02/07/22 06:48 02/07/22 04:00 02/07/22 04:00 02/07/22 06:48 Laboratory Results - last 24 hr 02/07/22 06:52: WBC 7.7, RBC 3.12 L, Hgb 9.2 L, Hct 29.2 L, MCV 93.6, MCH 29.4, MCHC 31.4 L, RDW 15.1, Plt Count 323, MPV 8.5, Neut % (Auto) 82.0 H, Lymph % (Auto) 10.7, [place] % (Auto) 3.4, Eos % (Auto) 2.9, Baso % (Auto) 1.0, Neut # (Auto) 6.3, Lymph # (Auto) 0.8, [place] # (Auto) 0.3, Eos # (Auto) 0.2, Baso # (Auto) 0.1 02/07/22 06:52: Sodium 138, Potassium 3.4 L D, Chloride 108 H, Carbon Dioxide 27, Anion Gap 6.4, BUN 15, Creatinine 0.50 L, Estimated Creat Clear 54, Estimated GFR 120, Est GFR ( Amer) 145 D, Glucose 98, Calcium 7.2 L, Magnesium 1.6 D, Total Bilirubin 0.4, AST 34 D, ALT 23 D, Alkaline Phosphatase 54, Total Protein 5.1 L, Albumin 2.5 L, Globulin 2.6, Albumin/Globulin Ratio 1.0 L I & O for Last 24 hours: Intake & Output 02/04/22 02/05/22 02/06/22 02/07/22 23:59 23:59 23:59 23:59 Intake Total 3570 / 3570 4557 / 4807 1199 / 1319 180 / 180 Output Total 1950 / 5 825 / 825 300 / 300 Balance 1620 / 1495 3732 / 3982 899 / 1019 180 / 180 Weight 69.031 kg 68.709 kg 71.668 kg 71.486 kg Microbiology Reports for the Last 24 Hours: Microbiology 02/03/22 18:48 Sputum - Expectorated Sputum Gram Stain - Final 02/03/22 18:48 Sputum - Expectorated Sputum Sputum Culture - Preliminary Narrative: - Constitutional NAD on 6L NC, average body habitus, chronically ill appearing - *Routine HEENT Exam Head: Present: normocephalic Eye: Present: EOMI, PERRL ENT: Present: mucous membranes moist; NG in right nare; NC in place - *Routine Neck Exam Present: supple. Absent: lymphadenopathy - *Routine Respiratory Exam Present: accessory muscle use, wheezes, crackles - *Routine Cardiovascular Exam Present: Regular rhythm, controlled rate. - *Routine Abdominal Exam Present: normoactive bowel sounds, intervally improved tenderness (Diffuse); No rebound, surgical sites clean dry and intact. - *Routine Extremities Exam Absent: cyanosis, clubbing, edema - *Routine Skin Exam Present: warm. Absent: rash - *Routine Neurological Exam Present: alert, oriented X3 Assessment and Plan (1) Atrial fibrillation with RVR Status: Acute Category: Medical Code(s): I48.91 - Unspecified atrial fibrillation (2) Hospital-acquired pneumonia Status: Acute Category: Medical Code(s): J18.9 - Pneumonia, unspecified organism; Y95 - Nosocomial condition (3) Small bowel obstruction Status: Acute Category: Medical Code(s): K56.609 - Unspecified intestinal obstruction, unspecified as to partial versus complete obstruction (4) CAD (coronary artery disease) Status: Chronic Qualifiers: Coronary Disease-Associated Artery/Lesion type: unspecified vessel or lesion type [place] vs. transplanted heart: [place] heart Associated angina: unspecified whether angina present Qualified Code(s): I25.10 - Atherosclerotic heart disease of [place] coronary artery without angina pectoris Category: Medical Code(s): I25.10 - Atherosclerotic heart disease of [place] coronary artery without angina pectoris (5) COPD (chronic obstructive pulmonary disease) Status: Chronic Qualifiers: COPD type: unspecified COPD Qualified Code(s): J44.9 - Chronic obstructive pulmonary disease, unspecified Category: Medical Code(s): J44.9 - Chronic obstructive pulmonary disease, unspecified (6) HLD (hyper
--- NOTE | 2022-02-07 09:58 | P.PN_ITS ---
Subjective Patient reports: feels better, flatus, bowel movement Progress Note: A&P (1) Atrial fibrillation with RVR Status: Acute (2) Hospital-acquired pneumonia Status: Acute (3) Small bowel obstruction Status: Acute Assessment and plan: Overall, doing fairly well status post exploratory laparotomy with extensive lysis of adhesions. (4) CAD (coronary artery disease) Status: Chronic (5) COPD (chronic obstructive pulmonary disease) Status: Chronic (6) HLD (hyperlipidemia) Status: Chronic (7) HTN (hypertension) Status: Chronic (8) KM (obstructive sleep apnea) Status: Chronic (9) Postoperative ileus Status: Acute Assessment and plan: Continuing to resolve. Soft diet ordered (10) NSTEMI (non-ST elevated myocardial infarction) Status: Acute Exam Vital signs and Labs for Last 24 Hours: Temp Pulse Resp BP Pulse Ox 98.0 F 87 17 162/89 H 91 L 02/07/22 08:00 02/07/22 08:00 02/07/22 08:00 02/07/22 08:00 02/07/22 08:00 Laboratory Results - last 24 hr 02/07/22 06:52: WBC 7.7, RBC 3.12 L, Hgb 9.2 L, Hct 29.2 L, MCV 93.6, MCH 29.4, MCHC 31.4 L, RDW 15.1, Plt Count 323, MPV 8.5, Neut % (Auto) 82.0 H, Lymph % (Auto) 10.7, [place] % (Auto) 3.4, Eos % (Auto) 2.9, Baso % (Auto) 1.0, Neut # (Auto) 6.3, Lymph # (Auto) 0.8, [place] # (Auto) 0.3, Eos # (Auto) 0.2, Baso # (Auto) 0.1 02/07/22 06:52: Sodium 138, Potassium 3.4 L D, Chloride 108 H, Carbon Dioxide 27, Anion Gap 6.4, BUN 15, Creatinine 0.50 L, Estimated Creat Clear 54, Estimated GFR 120, Est GFR ( Amer) 145 D, Glucose 98, Calcium 7.2 L, Magnesium 1.6 D, Total Bilirubin 0.4, AST 34 D, ALT 23 D, Alkaline Phosphatase 54, Total Protein 5.1 L, Albumin 2.5 L, Globulin 2.6, Albumin/Globulin Ratio 1.0 L I & O for Last 24 hours: Intake & Output 02/04/22 02/05/22 02/06/22 02/07/22 11:59 11:59 11:59 11:59 Intake Total 4310 / 4310 3251 / 3731 3785 / 3785 420 / 420 Output Total 900 / 1400 2175 / 2175 600 / 600 0 / 0 Balance 3410 / 2910 1076 / 1556 3185 / 3185 420 / 420 Weight 152 lb 3 oz 151 lb 7.639 oz 158 lb 157 lb 9.6 oz Microbiology Reports for the Last 24 Hours: Microbiology 02/03/22 18:48 Sputum - Expectorated Sputum Gram Stain - Final 02/03/22 18:48 Sputum - Expectorated Sputum Sputum Culture - Preliminary - Constitutional no acute distress - *Routine Respiratory Exam Absent: respiratory distress - *Routine Cardiovascular Exam Absent: tachycardia - *Routine Abdominal Exam Present: soft Comments: Incision healing without sign of infection
[2022-02-08] VITALS (11 sets, daily range): BP systolic 152–170; BP diastolic 76–103; PULSE 78–110; RESP 15–22; TEMP 36.4–37.1; O2SAT 90–95; BMI 26.7
--- NOTE | 2022-02-08 05:52 | PC.NURSE ---
Heart rate sustaining > 110. 118 bpm being the highest. Pt put back on tele. Medicated per JAN.
[2022-02-08 07:33] LABS: Basophils % 0.4 % (0.1-2.0); Eosinophils # 0.1 K/mm3 (0.0-0.4); Eosinophils % 1.2 % (0.1-12.0); Hematocrit 30.8 % (37.0-47.0); Hemoglobin 9.6 g/dL (12.2-16.2); Lymphocytes # 0.7 K/mm3 (0.7-4.5); Lymphocytes % 6.5 % (10-50); Mean Corpuscular HGB Conc 31.3 g/dL (31.8-35.4); Mean Corpuscular Hemoglobin 29.6 pg (27.0-31.2); Mean Corpuscular Volume 94.4 fl (81-99); Mean Platelet Volume 8.9 fl (7.4-10.4); Monocytes # 0.4 K/mm3 (0.1-1.0); Monocytes % 3.4 % (1.7-9.3); Neutrophils # 8.9 K/mm3 (1.8-7.8); Neutrophils % 88.6 % (37.0-80.0); Platelet Count 364 K/mm3 (142-424); Red Blood Count 3.26 M/mm3 (4.20-5.40); Red Cell Distribution Width 15.2 % (11.5-17.5); White Blood Count 10.1 K/mm3 (4.8-10.8)
[2022-02-08 07:37] LABS: MANUAL DIFFERENTIAL MANUAL DIFFERENTIAL (MANUAL DIFF)
[2022-02-08 07:44] LABS: Alanine Aminotransferase 24 U/L (12-78); Albumin Level 2.7 g/dl (3.5-5.0); Alkaline Phosphatase 58 U/L (38-126); Anion Gap 8.3 mEq/L (5-15); Aspartate Amino Transferase 30 U/L (14-36); Bilirubin,Total 0.5 mg/dl (0.2-1.3); Blood Urea Nitrogen 13 mg/dl (7-17); Calcium 7.3 mg/dl (8.4-10.2); Carbon Dioxide 24 mmol/L (22.0-30.0); Chloride 108 mmol/L (98-107); Creatinine Clearance Estimated 55 mL/min (50-200); Estimated Glomerular Filt Rate 97 ml/min (>60); GFR (African American) 118 ML/MIN (>60); Globulin 2.7 g/dL (1.3-3.2); Glucose 129 mg/dl (74-100); Potassium 3.3 mmoL/L (3.5-5.1); Sodium 137 mmol/L (136-145); Total Protein,Serum 5.4 g/dl (6.3-8.2)
--- NOTE | 2022-02-08 08:50 | HMH.ACPN2 ---
Internal Medicine - PN: Subj *Date: 02/08/22 *Time: 09:49 Interval history: Had some tachycardia overnight, however appears to be sinus tach. Working with PT this morning on rounds. Stable oxygen requirement. Does have nail [place] on however, this may be complicating oxygen probe. Feels her belly is more bloated but had a good bowel movement this morning that is more formed. No nausea or vomiting. Feels like she has mucus that just will not come up. Exam Vital signs and Labs for Last 24 Hours: Temp Pulse Resp BP Pulse Ox 98.2 F 105 H 16 152/78 H 94 L 02/08/22 08:00 02/08/22 08:00 02/08/22 08:00 02/08/22 08:00 02/08/22 08:00 Laboratory Results - last 24 hr 02/08/22 06:59: WBC 10.1 D, RBC 3.26 L, Hgb 9.6 L, Hct 30.8 L, MCV 94.4, MCH 29.6, MCHC 31.3 L, RDW 15.2, Plt Count 364, MPV 8.9, Neut % (Auto) 88.6 H, Lymph % (Auto) 6.5 L, [place] % (Auto) 3.4, Eos % (Auto) 1.2, Baso % (Auto) 0.4, Neut # (Auto) 8.9 H, Lymph # (Auto) 0.7, [place] # (Auto) 0.4, Eos # (Auto) 0.1, Baso # (Auto) 0.0 02/08/22 06:59: Sodium 137, Potassium 3.3 L, Chloride 108 H, Carbon Dioxide 24, Anion Gap 8.3, BUN 13, Creatinine 0.60, Estimated Creat Clear 55, Estimated GFR 97, Est GFR ( Amer) 118, Glucose 129 H, Calcium 7.3 L, Total Bilirubin 0.5, AST 30, ALT 24, Alkaline Phosphatase 58, Total Protein 5.4 L, Albumin 2.7 L, Globulin 2.7, Albumin/Globulin Ratio 1.0 L I & O for Last 24 hours: Intake & Output 02/05/22 02/06/22 02/07/22 02/08/22 23:59 23:59 23:59 23:59 Intake Total 4557 / 4807 1199 / 1319 780 / 780 150 / 150 Output Total 825 / 825 300 / 300 200 / 200 Balance 3732 / 3982 899 / 1019 580 / 580 150 / 150 Weight 68.709 kg 71.668 kg 71.486 kg 72.892 kg Microbiology Reports for the Last 24 Hours: Microbiology 02/03/22 18:48 Sputum - Expectorated Sputum Gram Stain - Final 02/03/22 18:48 Sputum - Expectorated Sputum Sputum Culture - Preliminary 02/03/22 01:15 Blood Blood Culture - Final NO GROWTH AFTER 5 DAYS 02/03/22 01:20 Blood Blood Culture - Final NO GROWTH AFTER 5 DAYS Narrative: - Constitutional NAD on 6L NC, average body habitus, chronically ill appearing - *Routine HEENT Exam Head: Present: normocephalic Eye: Present: EOMI, PERRL ENT: Present: mucous membranes moist; NG in right nare; NC in place - *Routine Neck Exam Present: supple. Absent: lymphadenopathy - *Routine Respiratory Exam Present: improved aeration, no crackles, rhonchi present that change with cough - *Routine Cardiovascular Exam Present: Regular rhythm, controlled rate. - *Routine Abdominal Exam Present: normoactive bowel sounds, intervally improved tenderness (Diffuse); No rebound, surgical sites clean dry and intact. - *Routine Extremities Exam Absent: cyanosis, clubbing, edema - *Routine Skin Exam Present: warm. Absent: rash - *Routine Neurological Exam Present: alert, oriented X3 Assessment and Plan (1) Atrial fibrillation with RVR Status: Acute Category: Medical Code(s): I48.91 - Unspecified atrial fibrillation (2) Hospital-acquired pneumonia Status: Acute Category: Medical Code(s): J18.9 - Pneumonia, unspecified organism; Y95 - Nosocomial condition (3) Small bowel obstruction Status: Acute Category: Medical Code(s): K56.609 - Unspecified intestinal obstruction, unspecified as to partial versus complete obstruction (4) CAD (coronary artery disease) Status: Chronic Qualifiers: Coronary Disease-Associated Artery/Lesion type: unspecified vessel or lesion type [place] vs. transplanted heart: [place] heart Associated angina: unspecified whether angina present Qualified Code(s): I25.10 - Atherosclerotic heart disease of [place] coronary artery without angina pectoris Category: Medical Code(s): I25.10 - Atherosclerotic heart disease of [place] coronary artery without angina pectoris (5) COPD (chronic obstructive
--- NOTE | 2022-02-08 09:54 | XR_ITS ---
PROCEDURE INFORMATION: Exam: XR Chest Exam date and time: 02/08/2022 10:55 AM Age: 76 years old Clinical indication: Shortness of breath; Additional info: Pneumonia TECHNIQUE: Imaging protocol: XR of the chest. Views: 1 view. COMPARISON: CR XR CHEST PORTABLE 02/02/2022 9:22 PM FINDINGS: Lungs: Similar patchy opacities in the lungs bilaterally. Pleural spaces: Similar small bilateral pleural effusions. No pneumothorax. Heart/Mediastinum: Unremarkable. No cardiomegaly. Bones/joints: Remote left humeral surgical neck fracture. IMPRESSION: Similar patchy bilateral airspace opacities with small bilateral pleural effusions.
--- NOTE | 2022-02-08 10:03 | HMH.GSPN ---
Subjective Patient reports: bowel movement Progress Note: A&P (1) Atrial fibrillation with RVR Status: Acute (2) Hospital-acquired pneumonia Status: Acute (3) Small bowel obstruction Status: Acute Assessment and plan: Overall, doing well status post extensive lysis of adhesions for small bowel obstruction. She is tolerating a soft diet. Continue soft diet Continue serial abdominal exams Likely discharge home soon with close outpatient follow-up (pending ongoing progress with regard to overall medical condition) (4) CAD (coronary artery disease) Status: Chronic (5) COPD (chronic obstructive pulmonary disease) Status: Chronic (6) HLD (hyperlipidemia) Status: Chronic (7) HTN (hypertension) Status: Chronic (8) KM (obstructive sleep apnea) Status: Chronic (9) Postoperative ileus Status: Acute (10) NSTEMI (non-ST elevated myocardial infarction) Status: Acute (11) Thrush Status: Acute Exam Vital signs and Labs for Last 24 Hours: Temp Pulse Resp BP Pulse Ox 98.2 F 105 H 16 152/78 H 94 L 02/08/22 08:00 02/08/22 08:00 02/08/22 08:00 02/08/22 08:00 02/08/22 08:00 Laboratory Results - last 24 hr 02/08/22 06:59: WBC 10.1 D, RBC 3.26 L, Hgb 9.6 L, Hct 30.8 L, MCV 94.4, MCH 29.6, MCHC 31.3 L, RDW 15.2, Plt Count 364, MPV 8.9, Neut % (Auto) 88.6 H, Lymph % (Auto) 6.5 L, [place] % (Auto) 3.4, Eos % (Auto) 1.2, Baso % (Auto) 0.4, Neut # (Auto) 8.9 H, Lymph # (Auto) 0.7, [place] # (Auto) 0.4, Eos # (Auto) 0.1, Baso # (Auto) 0.0 02/08/22 06:59: Sodium 137, Potassium 3.3 L, Chloride 108 H, Carbon Dioxide 24, Anion Gap 8.3, BUN 13, Creatinine 0.60, Estimated Creat Clear 55, Estimated GFR 97, Est GFR ( Amer) 118, Glucose 129 H, Calcium 7.3 L, Total Bilirubin 0.5, AST 30, ALT 24, Alkaline Phosphatase 58, Total Protein 5.4 L, Albumin 2.7 L, Globulin 2.7, Albumin/Globulin Ratio 1.0 L I & O for Last 24 hours: Intake & Output 02/05/22 02/06/22 02/07/22 02/08/22 11:59 11:59 11:59 11:59 Intake Total 3251 / 3731 3785 / 3785 420 / 420 750 / 750 Output Total 2175 / 2175 600 / 600 0 / 0 200 / 200 Balance 1076 / 1556 3185 / 3185 420 / 420 550 / 550 Weight 151 lb 7.639 oz 158 lb 157 lb 9.6 oz 160 lb 11.2 oz Microbiology Reports for the Last 24 Hours: Microbiology 02/03/22 18:48 Sputum - Expectorated Sputum Gram Stain - Final 02/03/22 18:48 Sputum - Expectorated Sputum Sputum Culture - Preliminary 02/03/22 01:15 Blood Blood Culture - Final NO GROWTH AFTER 5 DAYS 02/03/22 01:20 Blood Blood Culture - Final NO GROWTH AFTER 5 DAYS - Constitutional no acute distress - *Routine Respiratory Exam Absent: respiratory distress - *Routine Cardiovascular Exam Comments: Mild tachycardia - *Routine Abdominal Exam Present: soft Comments: Incision clean, dry, and intact. No erythema.
[2022-02-08 14:37] LABS: Lymphocytes % 9 % (10-50); Monocytes % 1 % (2-9); Neutrophils % 90 % (42-76); Platelet Estimate Normal; RBC Morphology Normal; Total Cells Counted 100
--- NOTE | 2022-02-08 16:01 | PC.NURSE ---
Courtesy round done Ice given trash taken out
--- NOTE | 2022-02-08 18:54 | PC.NURSE ---
Pt resting at this time. Neb given recently. Pt has had exertional soa.Pt did require 02 to be increased with ambulation to restroom. Pt back to 6 L NC at this time.
[2022-02-09] VITALS (13 sets, daily range): BP systolic 120–155; BP diastolic 71–97; PULSE 76–131; RESP 18–21; TEMP 36.2–37.4; O2SAT 89–99; BMI 25.5
--- NOTE | 2022-02-09 04:26 | ECG_ITS ---
APPROVED REPORT Exam: Resting ECG HR:106 bpm ECG Measurements Heart Rate 106 AXES QRSd 85 QRS 55 QT 338 T 76 QTc 400 Conclusion ATRIAL FIBRILLATION WITH RAPID VENTRICULAR RESPONSE WITH ABERRANT CONDUCTION OR VENTRICULAR PREMATURE COMPLEXES MODERATE ST DEPRESSION [0.05+ mV ST DEPRESSION] ABNORMAL ECG UNCONFIRMED REPORT Electronically signed by : Wally Martinez MD 02/09/2022 19:44:27
--- NOTE | 2022-02-09 04:56 | CT_ITS ---
PROCEDURE INFORMATION: Exam: CTA Chest With Contrast Exam date and time: 02/09/2022 5:33 AM Age: 76 years old Clinical indication: Shortness of breath; Patient HX: Recent surgery for small bowel obstruction now having difficulty breathing; Additional info: SOA TECHNIQUE: Imaging protocol: Computed tomographic angiography of the chest with contrast. 3D rendering (Not supervised by radiologist): MIP and/or 3D reconstructed images were created by the technologist. Radiation optimization: All CT scans at this facility use at least one of these dose optimization techniques: automated exposure control; mA and/or kV adjustment per patient size (includes targeted exams where dose is matched to clinical indication); or iterative reconstruction. Contrast material: ISOVUE 370; Contrast volume: 70 ml; Contrast route: INTRAVENOUS (IV); COMPARISON: CT ANGIO CHEST PE PROTOCOL 02/02/2022 11:29 PM FINDINGS: Pulmonary arteries: No evidence of a pulmonary embolus. Aorta: Unremarkable. No aortic aneurysm. No aortic dissection. Lungs: Moderate interstitial and alveolar opacities bilaterally, greatest in the mid and upper lungs. Findings are slightly worse on the right most notably in the inferior RUL. Question edema and/or pneumonia. Moderate emphysematous changes. [id number] secretions within the trachea and proximal left mainstem bronchus. Pleural spaces: Small to moderate bilateral pleural effusions, slightly increased. Heart: Coronary artery calcifications. Lymph nodes: Unremarkable. No enlarged lymph nodes. Adrenal glands: Mild nonspecific thickening of the adrenal glands. Calcified splenic and hepatic granulomas. Bones/joints: Kyphoscoliosis. Stable multilevel thoracic compression fractures. Soft tissues: Unremarkable. IMPRESSION: 1. Moderate interstitial and alveolar opacities bilaterally, greatest in the mid and upper lungs. Findings are slightly worse on the right most notably in the inferior RUL. Question edema and/or pneumonia. 2. Slight increase in small to moderate bilateral pleural effusions. 3. No evidence of a pulmonary embolus. 4. Please see the remainder of the report for additional findings.
--- NOTE | 2022-02-09 05:28 | PC.NURSE ---
PT OFF FLOOR AT THIS TIME W/STAFF
[2022-02-09 05:32] LABS: Basophils # 0.1 K/mm3 (0-0.2); Basophils % 0.7 % (0.1-2.0); Eosinophils # 0.1 K/mm3 (0.0-0.4); Eosinophils % 0.3 % (0.1-12.0); Hematocrit 34.1 % (37.0-47.0); Lymphocytes # 0.8 K/mm3 (0.7-4.5); Lymphocytes % 5.8 % (10-50); Mean Corpuscular HGB Conc 31.8 g/dL (31.8-35.4); Mean Corpuscular Hemoglobin 29.2 pg (27.0-31.2); Mean Corpuscular Volume 91.8 fl (81-99); Mean Platelet Volume 8.7 fl (7.4-10.4); Monocytes # 0.4 K/mm3 (0.1-1.0); Monocytes % 2.9 % (1.7-9.3); Neutrophils # 13.1 K/mm3 (1.8-7.8); Neutrophils % 90.3 % (37.0-80.0); Platelet Count 466 K/mm3 (142-424); Red Blood Count 3.71 M/mm3 (4.20-5.40); Red Cell Distribution Width 14.9 % (11.5-17.5); White Blood Count 14.5 K/mm3 (4.8-10.8)
[2022-02-09 05:35] LABS: MANUAL DIFFERENTIAL MANUAL DIFFERENTIAL (MANUAL DIFF)
[2022-02-09 05:39] LABS: Chloride 101 mmol/L (98-107); Potassium 3.5 mmoL/L (3.5-5.1); Sodium 133 mmol/L (136-145)
[2022-02-09 05:42] LABS: Blood Urea Nitrogen 11 mg/dl (7-17); Creatinine Clearance Estimated 53 mL/min (50-200); Estimated Glomerular Filt Rate 81 ml/min (>60); GFR (African American) 98 ML/MIN (>60)
[2022-02-09 05:43] LABS: Anion Gap 11.5 mEq/L (5-15); Calcium 6.7 mg/dl (8.4-10.2); Carbon Dioxide 24 mmol/L (22.0-30.0)
--- NOTE | 2022-02-09 05:44 | PC.NURSE ---
PT BACK TO FLOOR AT THIS TIME.
[2022-02-09 05:46] LABS: Glucose 161 mg/dl (74-100)
[2022-02-09 05:50] LABS: Hypochromasia 1+; Lymphocytes % 6 % (10-50); Neutrophils % 85 % (42-76); Platelet Estimate Slight Increase; Total Cells Counted 100
[2022-02-09 05:52] LABS: NT Pro Brain Natriuretic Pep. 21100 pg/mL (0-450)
[2022-02-09 05:57] LABS: Troponin I 0.56 ng/ml (0.00-0.034)
[2022-02-09 06:05] LABS: Hemoglobin 10.8 g/dL (12.2-16.2)
--- NOTE | 2022-02-09 07:44 | PC.NURSE ---
LATE ENTRY - At beginning of my shift pt c/o of tightness in her lower legs - non pitting edema. Lungs - crackles bilaterally. BP elevated, Pts O2 is 91% on 10 L high flow nasal cannula. Dr. Delaney notified. Orders received for 40 mg IV lasix. Pt did have good output after lasix. Around 0430 pts heart rate increased and stayed around 110-120s - medicated per JAN. Around 0440 pt called out with SOA and labored breathing. Pt has rhonchi/coarse crackles bilaterally. O2 sat dropped to 81% on 10 L HFNC. RT called, pt placed on 15 L nonrebreather, EKG obtained. PTs o2 was 86-89% on non-rebreather. Dr. Delaney notified. New orders obtained - CTA PE protocol, BNP, troponin, breathing tx, vapotherm, lovenox 80 mg BID, mucomyst if needed. Pt placed on 25L/75% vapotherm - O2 sat 95%. HR still 110-120s. Pts work of breathing has improved since on vapotherm. Dr. Delaney notified of CTA results, troponin, BNP, and pt status. Orders for 40 mg IV lasix obtained and carried out by this RN. Pt is resting at this time with family at bedside. Monitoring via tele and continuous pulse ox. No needs at this time. Call light in reach.
--- NOTE | 2022-02-09 08:04 | HMH.GSPN ---
Subjective Patient reports: bowel movement, shortness of breath Narrative: The patient and the patient's daughter feel like she has gone a bit backwards . The patient's daughter is requesting transfer to tertiary care center and states that she plans to discuss her concerns with Dr. Delaney or Dr. Martinez. Progress Note: A&P (1) Atrial fibrillation with RVR Status: Acute (2) Hospital-acquired pneumonia Status: Acute (3) Small bowel obstruction Status: Acute Assessment and plan: No obvious surgical complication status post extensive adhesiolysis. No sign of infection with regard to her incision. Her bowels have been functioning fairly consistently. Remove remaining kings/sutures today Note: I will be out of town through the remainder of this week. Patient states that she does not wish to see Dr. Mercado in my absence unless it is an emergency . (4) CAD (coronary artery disease) Status: Chronic (5) COPD (chronic obstructive pulmonary disease) Status: Chronic (6) HLD (hyperlipidemia) Status: Chronic (7) HTN (hypertension) Status: Chronic (8) KM (obstructive sleep apnea) Status: Chronic (9) Postoperative ileus Status: Resolved (10) NSTEMI (non-ST elevated myocardial infarction) Status: Acute (11) Thrush Status: Acute Exam Vital signs and Labs for Last 24 Hours: Temp Pulse Resp BP Pulse Ox 98.9 F 116 H 21 151/74 H 95 02/09/22 04:00 02/09/22 05:19 02/09/22 04:00 02/09/22 04:00 02/09/22 06:20 Laboratory Results - last 24 hr 02/08/22 06:59: Total Counted 100, Neutrophils % (Manual) 90 H, Lymphocytes % (Manual) 9 L, Monocytes % (Manual) 1 L, Platelet Estimate Normal, RBC Morphology Normal 02/09/22 05:22: WBC 14.5 H D, RBC 3.71 L, Hgb 10.8 L D, Hct 34.1 L, MCV 91.8, MCH 29.2, MCHC 31.8, RDW 14.9, Plt Count 466 H D, MPV 8.7, Neut % (Auto) 90.3 H, Lymph % (Auto) 5.8 L, [place] % (Auto) 2.9, Eos % (Auto) 0.3, Baso % (Auto) 0.7, Neut # (Auto) 13.1 H, Lymph # (Auto) 0.8, [place] # (Auto) 0.4, Eos # (Auto) 0.1, Baso # (Auto) 0.1, Total Counted 100, Neutrophils % (Manual) 85 H, Band Neutrophils % 9.0 H, Lymphocytes % (Manual) 6 L, Platelet Estimate Slight increase, Hypochromasia 1+ 02/09/22 05:22: Sodium 133 L, Potassium 3.5, Chloride 101, Carbon Dioxide 24, Anion Gap 11.5, BUN 11, Creatinine 0.70, Estimated Creat Clear 53, Estimated GFR 81, Est GFR ( Amer) 98, Glucose 161 H D, Calcium 6.7 L, Troponin I 0.56 H, NT-Pro-B Natriuret Pep 43090 H I & O for Last 24 hours: Intake & Output 02/06/22 02/07/22 02/08/22 02/09/22 11:59 11:59 11:59 11:59 Intake Total 3785 / 3785 420 / 420 990 / 990 600 / 600 Output Total 600 / 600 0 / 0 200 / 200 1100 / 1100 Balance 3185 / 3185 420 / 420 790 / 790 -500 / -500 Weight 158 lb 157 lb 9.6 oz 160 lb 11.2 oz 153 lb 3.2 oz Microbiology Reports for the Last 24 Hours: Microbiology 02/03/22 18:48 Sputum - Expectorated Sputum Gram Stain - Final 02/03/22 18:48 Sputum - Expectorated Sputum Sputum Culture - Preliminary Gram Negative Rods - Constitutional no acute distress - *Routine Respiratory Exam Absent: respiratory distress - *Routine Cardiovascular Exam Present: tachycardia - *Routine Abdominal Exam Present: soft Comments: Incision healing without sign of infection.
[2022-02-09 09:08] LABS: Troponin I 0.57 ng/ml (0.00-0.034)
--- NOTE | 2022-02-09 09:09 | HMH.ACPN2 ---
Internal Medicine - PN: Subj *Date: 02/09/22 *Time: 09:09 Interval history: Events over the weekend noted. Patient had some more oxygen requirement, did respond very nicely to diuresis and lost about 4 pounds overnight. She is currently on Vapotherm, comfortable but feels very tired and more short of breath compared to what she did 3 or 4 days ago. Exam Vital signs and Labs for Last 24 Hours: Temp Pulse Resp BP Pulse Ox 98.9 F 107 H 21 151/74 H 95 02/09/22 04:00 02/09/22 08:12 02/09/22 04:00 02/09/22 04:00 02/09/22 08:12 Laboratory Results - last 24 hr 02/08/22 06:59: Total Counted 100, Neutrophils % (Manual) 90 H, Lymphocytes % (Manual) 9 L, Monocytes % (Manual) 1 L, Platelet Estimate Normal, RBC Morphology Normal 02/09/22 05:22: WBC 14.5 H D, RBC 3.71 L, Hgb 10.8 L D, Hct 34.1 L, MCV 91.8, MCH 29.2, MCHC 31.8, RDW 14.9, Plt Count 466 H D, MPV 8.7, Neut % (Auto) 90.3 H, Lymph % (Auto) 5.8 L, [place] % (Auto) 2.9, Eos % (Auto) 0.3, Baso % (Auto) 0.7, Neut # (Auto) 13.1 H, Lymph # (Auto) 0.8, [place] # (Auto) 0.4, Eos # (Auto) 0.1, Baso # (Auto) 0.1, Total Counted 100, Neutrophils % (Manual) 85 H, Band Neutrophils % 9.0 H, Lymphocytes % (Manual) 6 L, Platelet Estimate Slight increase, Hypochromasia 1+ 02/09/22 05:22: Sodium 133 L, Potassium 3.5, Chloride 101, Carbon Dioxide 24, Anion Gap 11.5, BUN 11, Creatinine 0.70, Estimated Creat Clear 53, Estimated GFR 81, Est GFR ( Amer) 98, Glucose 161 H D, Calcium 6.7 L, Troponin I 0.56 H, NT-Pro-B Natriuret Pep 24344 H 02/09/22 08:17: Troponin I 0.57 H I & O for Last 24 hours: Intake & Output 02/06/22 02/07/22 02/08/22 02/09/22 11:59 11:59 11:59 11:59 Intake Total 3785 / 3785 420 / 420 990 / 990 600 / 600 Output Total 600 / 600 0 / 0 200 / 200 1100 / 1100 Balance 3185 / 3185 420 / 420 790 / 790 -500 / -500 Weight 158 lb 157 lb 9.6 oz 160 lb 11.2 oz 153 lb 3.2 oz Microbiology Reports for the Last 24 Hours: Microbiology 02/03/22 18:48 Sputum - Expectorated Sputum Gram Stain - Final 02/03/22 18:48 Sputum - Expectorated Sputum Sputum Culture - Preliminary Gram Negative Rods Narrative: Patient is alert. Pleasant. Heart rate regular. Lungs with Rales bilaterally but symmetric air entry. And good oxygen saturation on current Vapotherm settings. Abdomen is soft, surgical consultation reviewed and appreciated. No ankle edema. Assessment and Plan (1) Atrial fibrillation with RVR Status: Acute Category: Medical Code(s): I48.91 - Unspecified atrial fibrillation (2) Hospital-acquired pneumonia Status: Acute Category: Medical Code(s): J18.9 - Pneumonia, unspecified organism; Y95 - Nosocomial condition (3) Small bowel obstruction Status: Acute Category: Medical Code(s): K56.609 - Unspecified intestinal obstruction, unspecified as to partial versus complete obstruction (4) CAD (coronary artery disease) Status: Chronic Qualifiers: Coronary Disease-Associated Artery/Lesion type: unspecified vessel or lesion type [place] vs. transplanted heart: [place] heart Associated angina: unspecified whether angina present Qualified Code(s): I25.10 - Atherosclerotic heart disease of [place] coronary artery without angina pectoris Category: Medical Code(s): I25.10 - Atherosclerotic heart disease of [place] coronary artery without angina pectoris (5) COPD (chronic obstructive pulmonary disease) Status: Chronic Qualifiers: COPD type: unspecified COPD Qualified Code(s): J44.9 - Chronic obstructive pulmonary disease, unspecified Category: Medical Code(s): J44.9 - Chronic obstructive pulmonary disease, unspecified (6) HLD (hyperlipidemia) Status: Chronic Qualifiers: Hyperlipidemia type: mixed hyperlipidemia Qualified Code(s): E78.2 - Mixed hyperlipidemia Category: Medical Code(s): E78.5 - Hyperlipidemia, unspecified (7) HTN (hypertension) Status: Chronic Qualifi
--- NOTE | 2022-02-09 09:37 | HMH.PULMCON ---
*Admission Date: 01/30/22 *History of present illness: Ms. Jerry is a 76-year-old female greater than [id number] smoking history carries a diagnosis of COPD on Anoro inhaler at home presented to the hospital to be evaluated for small bowel obstruction noted to have gradually worsening respiratory distress eventually needing high flow nasal cannula to maintain her saturations and pulmonary was called for further management. [facility] History Medical History: Reports:: Chronic Obstructive Pulmonary Disease (COPD), Coronary Artery Disease, Gastroesophageal Reflux Disease(GERD), Hyperlipidemia, Hypertension, Palpitations Denies:: Cancer, Diabetes Mellitus Type 1, Diabetes Mellitus Type 2, Internal Pacemaker, MRSA, Seizures *Have you ever received a pneumonia vaccine?: Yes (unknown when had) *Have you received a flu vaccine this season?: Yes Other Medical History: Reports: Cataracts, Sinus Problems, Other Anesthesia experience/problems:: None Laterality Cases: Left: Arthroscopy Shoulder, Other Other Surgeries: Yes: No Previous Surgery, Angioplasty, Cardiac Catheterization, Cholecystectomy, Colonoscopy, Coronary Stent, Dilation and Curettage, EGD, Hernia Repair, Hysterectomy-Total, Hysterectomy-Partial, Tubal Ligation, Other. No: Pacemaker Amputation: No Fractures: Yes (lt shoulder (NO SURGERY)) - *Social History Last grade of school completed: 7th or 8th Smoking Status: Former smoker Tobacco Type: cigarettes # Packs/Day (cigarettes): 1 #Yrs smoked (if former smoker): 50 Smoking End Date: 03/2021 Alcohol Intake: never Alcohol Intake Frequency:: a few times a month Substance Use Type: denies use *Occupational Status:: retired Housing: other Household Members: other *Travel in the last 8 weeks: None Family Hx:: Cancer, Coronary Artery Disease, Heart Attack ROS - Cons Reports body ache(s) - Eyes Reports blurry vision - ENT Denies bleeding gums - Card Reports shortness of breath, Reports shortness of breath with activity - Resp Respiratory: Reports change in phlegm color, Reports chest congestion, Reports cough, Reports dyspnea on exertion, Reports excessive phlegm production, Reports pain on inspiration, Reports pain with cough, Reports cough with sputum production - GI Gastrointestingal: Denies: abdominal pain - [place] Musculoskeletal: Denies back pain - Psych Denies thoughts of hurting/killing others, Denies thoughts of hurting/killing yourself Meds Home Medications Medication Instructions Recorded Confirmed Type Cholecalciferol (Vitd3)/Vit K2 [D3 1 tab PO DAILY 10/02/19 01/30/22 History + K2 Dots 1,000 Units Tab] docusate sodium 250 mg capsule 250 mg PO DAILY 01/24/20 01/30/22 History Umeclidinium Brm/Vilanterol Tr 1 inh IH DAILY 04/01/20 01/30/22 History [Anoro Ellipta 62.5-25 Mcg INH] hydrochlorothiazide 12.5 mg tablet 12.5 mg PO DAILY tab 05/02/21 01/30/22 History calcium carbonate 600 mg-vitamin 1 tab PO DAILY 10/22/21 01/30/22 History D3 20 mcg (800 unit) chewable tablet fluticasone propionate 50 1 spray INTRANASAL DAILY g 10/22/21 01/30/22 History mcg/actuation nasal spray,suspension metoprolol succinate 25 mg 25 mg PO DAILY tab 10/22/21 01/30/22 History tablet,extended release 24 hr nitroglycerin 0.4 mg sublingual 0.4 mg SUBLINGUAL Q5M PRN #20 tab 11/03/21 01/30/22 Rx tablet Aspirin [Adult Aspirin Regimen] 81 mg PO DAILY 01/30/22 01/30/22 History Simvastatin 20 mg PO DAILY 01/30/22 01/30/22 History Allergies Allergy/AdvReac Type Severity Reaction Status Date / Time atorvastatin AdvReac Mild myalgias Verified 01/21/22 10:11 Exam - Constitutional Constitutional:: Present: no acute distress, comfortable - [facility] Exam HENMT: Present: normocephalic - Eye Exam Eyes:: Present: normal appearance both eyes and related structures - Neck Exam Neck:: Present: normal visual inspection - Respiratory Exam Respiratory:: Present: able to speak in complete sentences, respira
--- NOTE | 2022-02-09 11:37 | HMH.CNCARD ---
History of Present Illness Consult date: 02/09/22 Requesting physician: Wally Martinez Consult reason: congestive heart failure, shortness of breath Chief complaint: edema following surgery History of present illness: This is a 76-year-old white female who presented to the emergency department with nausea and vomiting. She has a long standing history of a small bowel obstruction with surgery approximately 18 years ago. She presented to the emergency department with a 2 to 3-day history of the nausea and vomiting. The patient underwent repeat surgical intervention for her small bowel obstruction on this hospital stay. Since that time the patient reports that she has been having worsening bilateral lower extremity edema. She states that she had no edema prior to coming into the hospital. She states that she feels significantly short of breath which is worse with exertion. It is still occurring with rest. She states that nothing was really helping with her shortness of breath and edema at this time. She denies chest pain or pressure. The patient reports having no nausea or vomiting since having surgery. She states that she is tolerating food pretty well. She denies any fever, chills, nausea, vomiting, diarrhea or PND. She does have associated orthopnea with her shortness of breath. [facility] History I have reviewed the patient's past medical history: Yes Medical History: Reports:: Chronic Obstructive Pulmonary Disease (COPD), Coronary Artery Disease, Gastroesophageal Reflux Disease(GERD), Hyperlipidemia, Hypertension, Palpitations Denies:: Cancer, Diabetes Mellitus Type 1, Diabetes Mellitus Type 2, Internal Pacemaker, MRSA, Seizures *Have you ever received a pneumonia vaccine?: Yes (unknown when had) *Have you received a flu vaccine this season?: Yes Other Medical History: Reports: Cataracts, Sinus Problems, Other Anesthesia experience/problems:: None Laterality Cases: Left: Arthroscopy Shoulder, Other Other Surgeries: Yes: No Previous Surgery, Angioplasty, Cardiac Catheterization, Cholecystectomy, Colonoscopy, Coronary Stent, Dilation and Curettage, EGD, Hernia Repair, Hysterectomy-Total, Hysterectomy-Partial, Tubal Ligation, Other. No: Pacemaker Amputation: No Fractures: Yes (lt shoulder (NO SURGERY)) - *Social History Last grade of school completed: 7th or 8th Smoking Status: Former smoker Tobacco Type: cigarettes # Packs/Day (cigarettes): 1 #Yrs smoked (if former smoker): 50 Smoking End Date: 03/2021 Alcohol Intake: never Alcohol Intake Frequency:: a few times a month Substance Use Type: denies use *Occupational Status:: retired Housing: other Household Members: other *Travel in the last 8 weeks: None Family Hx:: Cancer, Coronary Artery Disease, Heart Attack Meds Home Medications Medication Instructions Recorded Confirmed Type Cholecalciferol (Vitd3)/Vit K2 [D3 1 tab PO DAILY 10/02/19 01/30/22 History + K2 Dots 1,000 Units Tab] docusate sodium 250 mg capsule 250 mg PO DAILY 01/24/20 01/30/22 History Umeclidinium Brm/Vilanterol Tr 1 inh IH DAILY 04/01/20 01/30/22 History [Anoro Ellipta 62.5-25 Mcg INH] hydrochlorothiazide 12.5 mg tablet 12.5 mg PO DAILY tab 05/02/21 01/30/22 History calcium carbonate 600 mg-vitamin 1 tab PO DAILY 10/22/21 01/30/22 History D3 20 mcg (800 unit) chewable tablet fluticasone propionate 50 1 spray INTRANASAL DAILY g 10/22/21 01/30/22 History mcg/actuation nasal spray,suspension metoprolol succinate 25 mg 25 mg PO DAILY tab 10/22/21 01/30/22 History tablet,extended release 24 hr nitroglycerin 0.4 mg sublingual 0.4 mg SUBLINGUAL Q5M PRN #20 tab 11/03/21 01/30/22 Rx tablet Aspirin [Adult Aspirin Regimen] 81 mg PO DAILY 01/30/22 01/30/22 History Simvastatin 20 mg PO DAILY 01/30/22 01/30/22 History Allergies Allergy/AdvReac Type Severity Reaction Status Date / Time atorvastatin AdvReac Mild myalgias Verified 01/21/22 10:11 Exam Vital signs and Labs for Last 24 Hours
[2022-02-09 12:56] LABS: Troponin I 0.49 ng/ml (0.00-0.034)
--- NOTE | 2022-02-09 12:59 | PC.NURSE ---
Addendum entered by Lili Slater RN 02/09/22 17:37: SYBIL AND SUTURES WERE REMOVED FROM MIDLINE INCISION. STERI STRIPS APPLIED TO INCISION. Original Note: PT IS SITTING UP IN THE CHAIR WITH FAMILY AT BEDSIDE. ALERT AND ORIENTED X4. PT STATES SHE FEELS BETTER BUT IS VERY TIRED TODAY. PT WAS ABLE TO GET OOB WITH PHYSICAL THERAPY (1 ASSIST). EATING AND DRINKING FAIR. O2 SATURATION HAS MAINTAINED 92-94% ON VAPOTHERM. PT HAS DIURESED WELL THIS SHIFT. LUNG SOUNDS DIMINISHED WITH BILATERAL CRACKLES. ABDOMEN SOFT/NON TENDER WITH ACTIVE BOWEL SOUNDS. WILL CONTINUE TO MONITOR.
--- NOTE | 2022-02-09 14:24 | DIET.NUTRFU ---
Spoke to patient today, she feels her meal intake is improving was able to consume cottage [id number]%, ice cream 50% and was drinking a boost breeze upon visit. She prefer those other the ensure. Notified kitchen of preference. Ate 50% yogurt and cereal for breakfast. Started Nystatin for thrush, she reports its already improving. Noted to have some post op edema cardio started lasix. Wt was up yesterday to 72.8kg now back down to 68kg. Noted large amount of urine today 1800 possibly d/t diuretic tx. BM noted yesterday. Will continue to monitor meal intake.
[2022-02-10] VITALS (12 sets, daily range): BP systolic 111–155; BP diastolic 60–70; PULSE 78–106; RESP 18–22; TEMP 36.8–37.4; O2SAT 92–97; BMI 24.7
--- NOTE | 2022-02-10 03:18 | PC.NURSE ---
vapotherm decreased to 30L/55%
[2022-02-10 06:17] LABS: Basophils # 0.1 K/mm3 (0-0.2); Basophils % 0.9 % (0.1-2.0); Eosinophils # 0.2 K/mm3 (0.0-0.4); Hematocrit 27.7 % (37.0-47.0); Hemoglobin 9.2 g/dL (12.2-16.2); Lymphocytes # 0.9 K/mm3 (0.7-4.5); Lymphocytes % 11.5 % (10-50); Mean Corpuscular HGB Conc 33.2 g/dL (31.8-35.4); Mean Corpuscular Volume 90.3 fl (81-99); Mean Platelet Volume 9.3 fl (7.4-10.4); Monocytes # 0.4 K/mm3 (0.1-1.0); Monocytes % 4.4 % (1.7-9.3); Neutrophils # 6.5 K/mm3 (1.8-7.8); Neutrophils % 81.3 % (37.0-80.0); Platelet Count 361 K/mm3 (142-424); Red Blood Count 3.07 M/mm3 (4.20-5.40); White Blood Count 8.1 K/mm3 (4.8-10.8)
[2022-02-10 06:22] LABS: Anion Gap 5.8 mEq/L (5-15); Blood Urea Nitrogen 13 mg/dl (7-17); Carbon Dioxide 31 mmol/L (22.0-30.0); Chloride 99 mmol/L (98-107); Creatinine Clearance Estimated 50 mL/min (50-200); Estimated Glomerular Filt Rate 81 ml/min (>60); GFR (African American) 98 ML/MIN (>60); Glucose 114 mg/dl (74-100); Sodium 133 mmol/L (136-145)
[2022-02-10 06:40] LABS: Potassium 2.8 mmoL/L (3.5-5.1)
--- NOTE | 2022-02-10 08:23 | HMH.ACPN2 ---
Internal Medicine - PN: Subj *Date: 02/10/22 *Time: 13:44 Interval history: Feeling better. Improved oxygenation. on Vapotherm 55%. Tolerating PO intake. Family at bedside. Having good urine output. Responding to diuresis. -2 L yesterday. Afebrile. No nausea or vomiting. Sitting upright on bedside eating breakfast Exam Vital signs and Labs for Last 24 Hours: Temp Pulse Resp BP Pulse Ox 98.3 F 98 H 19 155/70 H 96 02/10/22 07:59 02/10/22 07:59 02/10/22 07:59 02/10/22 07:59 02/10/22 07:59 Laboratory Results - last 24 hr 02/09/22 08:17: Troponin I 0.57 H 02/09/22 11:38: Troponin I 0.49 H 02/10/22 05:30: WBC 8.1 D, RBC 3.07 L, Hgb 9.2 L, Hct 27.7 L, MCV 90.3, MCH 30.0, MCHC 33.2, RDW 15.0, Plt Count 361, MPV 9.3, Neut % (Auto) 81.3 H, Lymph % (Auto) 11.5, [place] % (Auto) 4.4, Eos % (Auto) 2.0, Baso % (Auto) 0.9, Neut # (Auto) 6.5, Lymph # (Auto) 0.9, [place] # (Auto) 0.4, Eos # (Auto) 0.2, Baso # (Auto) 0.1 02/10/22 05:30: Sodium 133 L, Potassium 2.8 L*, Chloride 99, Carbon Dioxide 31 H, Anion Gap 5.8, BUN 13, Creatinine 0.70, Estimated Creat Clear 50, Estimated GFR 81, Est GFR ( Amer) 98, Glucose 114 H, Calcium 7.0 L I & O for Last 24 hours: Intake & Output 02/07/22 02/08/22 02/09/22 02/10/22 23:59 23:59 23:59 23:59 Intake Total 780 / 780 990 / 990 720 / 720 150 / 150 Output Total 200 / 200 2800 / 3400 600 / 600 Balance 580 / 580 990 / 490 -2080 / -2680 -450 / -450 Weight 71.486 kg 72.892 kg 69.49 kg 67.495 kg Microbiology Reports for the Last 24 Hours: Microbiology 02/09/22 14:20 Sputum - Expectorated Sputum Gram Stain - Final Narrative: - Constitutional mild distress on Vapotherm. average body habitus, chronically ill appearing - *Routine HEENT Exam Head: Present: normocephalic Eye: Present: EOMI, PERRL ENT: Present: mucous membranes moist; NG in right nare; NC in place - *Routine Neck Exam Present: supple. Absent: lymphadenopathy - *Routine Respiratory Exam Present: improved aeration, crackles in bases (posterior jl ng acosta) no wheeze. rhonchi present that change with cough - *Routine Cardiovascular Exam Present: Regular rhythm, controlled rate. - *Routine Abdominal Exam Present: normoactive bowel sounds, intervally improved tenderness (Diffuse); No rebound, surgical sites clean dry and intact. - *Routine Extremities Exam Absent: cyanosis, clubbing, 2+ edema to midshin - *Routine Skin Exam Present: warm. Absent: rash - *Routine Neurological Exam Present: alert, oriented X3 Assessment and Plan (1) Atrial fibrillation with RVR Status: Resolved Category: Medical Code(s): I48.91 - Unspecified atrial fibrillation (2) Acute on chronic diastolic (congestive) heart failure Status: Acute Category: Medical Code(s): I50.33 - Acute on chronic diastolic (congestive) heart failure (3) Hospital-acquired pneumonia Status: Acute Category: Medical Code(s): J18.9 - Pneumonia, unspecified organism; Y95 - Nosocomial condition (4) Small bowel obstruction Status: Acute Category: Medical Code(s): K56.609 - Unspecified intestinal obstruction, unspecified as to partial versus complete obstruction (5) CAD (coronary artery disease) Status: Chronic Qualifiers: Coronary Disease-Associated Artery/Lesion type: unspecified vessel or lesion type [place] vs. transplanted heart: [place] heart Associated angina: unspecified whether angina present Qualified Code(s): I25.10 - Atherosclerotic heart disease of [place] coronary artery without angina pectoris Category: Medical Code(s): I25.10 - Atherosclerotic heart disease of [place] coronary artery without angina pectoris (6) COPD (chronic obstructive pulmonary disease) Status: Chronic Qualifiers: COPD type: unspecified COPD Qualified Code(s): J44.9 - Chronic obstructive pulmonary disease, unspecified Category: Medical Code(s): J44.9 - Chronic obstructive pulmonary disease, unspe
--- NOTE | 2022-02-10 08:42 | HMH.PNCARD ---
Subjective Date: 02/10/22 Time: 08:00 Principal diagnosis: diastolic chf, afib Interval history: This is a 37-year-old white female who is admitted for nausea and vomiting. The patient did undergo surgery for small bowel obstruction. The patient is now tolerating food well. Cardiology was consulted due to an acute exacerbation of diastolic congestive heart failure. She was diuresed with IV Lasix overnight and has a -2 L fluid balance. She states that her shortness of breath is significantly improved as well as her lower extremity edema. She states that she is much better today. Her oxygen has been weaned down this morning as well. She denies any chest pain or pressure. She denies any fever, chills, nausea, vomiting, diarrhea or PND. She states that she still has some orthopnea with her shortness of breath but this is much better as well. Exam Vital signs and Labs for Last 24 Hours: Temp Pulse Resp BP Pulse Ox 98.3 F 98 H 19 155/70 H 96 02/10/22 07:59 02/10/22 07:59 02/10/22 07:59 02/10/22 07:59 02/10/22 07:59 Laboratory Results - last 24 hr 02/09/22 08:17: Troponin I 0.57 H 02/09/22 11:38: Troponin I 0.49 H 02/10/22 05:30: WBC 8.1 D, RBC 3.07 L, Hgb 9.2 L, Hct 27.7 L, MCV 90.3, MCH 30.0, MCHC 33.2, RDW 15.0, Plt Count 361, MPV 9.3, Neut % (Auto) 81.3 H, Lymph % (Auto) 11.5, [place] % (Auto) 4.4, Eos % (Auto) 2.0, Baso % (Auto) 0.9, Neut # (Auto) 6.5, Lymph # (Auto) 0.9, [place] # (Auto) 0.4, Eos # (Auto) 0.2, Baso # (Auto) 0.1 02/10/22 05:30: Sodium 133 L, Potassium 2.8 L*, Chloride 99, Carbon Dioxide 31 H, Anion Gap 5.8, BUN 13, Creatinine 0.70, Estimated Creat Clear 50, Estimated GFR 81, Est GFR ( Amer) 98, Glucose 114 H, Calcium 7.0 L I & O for Last 24 hours: Intake & Output 02/07/22 02/08/22 02/09/22 02/10/22 23:59 23:59 23:59 23:59 Intake Total 780 / 780 990 / 990 720 / 720 150 / 150 Output Total 200 / 200 2800 / 3400 600 / 600 Balance 580 / 580 990 / 490 -2080 / -2680 -450 / -450 Weight 157 lb 9.6 oz 160 lb 11.2 oz 153 lb 3.2 oz 148 lb 12.8 oz Microbiology Reports for the Last 24 Hours: Microbiology 02/09/22 14:20 Sputum - Expectorated Sputum Gram Stain - Final Narrative: Telemetry strip shows sinus rhythm with a rate in the 70s. - Constitutional no acute distress, average body habitus - *Routine HEENT Exam Head: Present: normocephalic, atraumatic Eye: Present: EOMI, PERRL ENT: Present: mucous membranes moist - *Routine Neck Exam Present: supple, full ROM, normal carotid upstroke. Absent: JVD, carotid bruit, lymphadenopathy - *Routine Respiratory Exam Present: decreased breath sounds, rales - *Routine Cardiovascular Exam Present: RRR, Normal S1, Normal S2. Absent: murmur - *Routine Abdominal Exam Present: soft, normoactive bowel sounds. Absent: tenderness, distended - *Routine Extremities Exam Present: edema, full ROM, pulses intact, normal capillary refill. Absent: cyanosis, clubbing - *Routine Skin Exam Present: intact, warm. Absent: erythema, rash - *Routine Neurological Exam Present: alert, oriented X3, CN II-XII intact. Absent: sensory deficit, motor deficit Progress Note: A&P (1) Acute diastolic congestive heart failure Status: Acute (2) Pulmonary hypertension Status: Chronic (3) NSTEMI (non-ST elevated myocardial infarction) Status: Acute (4) Atrial fibrillation with RVR Status: Resolved (5) Hospital-acquired pneumonia Status: Acute (6) Small bowel obstruction Status: Acute (7) CAD (coronary artery disease) Status: Chronic (8) COPD (chronic obstructive pulmonary disease) Status: Chronic (9) HLD (hyperlipidemia) Status: Chronic (10) HTN (hypertension) Status: Chronic (11) KM (obstructive sleep apnea) Status: Chronic (12) Postoperative ileus Status: Resolved (13) Thrush Status: Acute (14) Hypokalemia Status: Acute Assessment and Plan for All Diagnoses:: Plan: 1. The p
--- NOTE | 2022-02-10 09:13 | HMH.PULMPN ---
Internal Medicine - PN: Subj *Date: 02/10/22 *Time: 10:28 Interval history: No acute respiratory vents overnight. Patient admits continued improvement in her symptoms. Exam - Constitutional Constitutional:: Present: no acute distress, comfortable - HENMT Exam HENMT: Present: normocephalic - Eye Exam Eyes:: Present: normal appearance both eyes and related structures - Neck Exam Neck:: Present: normal visual inspection - Respiratory Exam Respiratory:: Present: able to speak in complete sentences, respiratory distress, rhonchi. Absent: wheezing - Cardiovascular Exam Cardiac:: Present: S1, S2 - GI Exam GI:: Present: soft - Skin Exam Skin: Present: warm, no rash - Neurological Exam Neurological: Present: alert, awake, normal cognition - Extremities Exam Extremities: Present: no cyanosis, no clubbing, edema - Psychiatric Exam Psychiatric: Present: normal affect Assessment and Plan (1) Acute diastolic congestive heart failure Status: Acute Category: Medical Code(s): I50.31 - Acute diastolic (congestive) heart failure (2) Pulmonary hypertension Status: Chronic Category: Medical Code(s): I27.20 - Pulmonary hypertension, unspecified (3) NSTEMI (non-ST elevated myocardial infarction) Status: Acute Category: Medical Code(s): I21.4 - Non-ST elevation (NSTEMI) myocardial infarction (4) Atrial fibrillation with RVR Status: Resolved Category: Medical Code(s): I48.91 - Unspecified atrial fibrillation (5) Hospital-acquired pneumonia Status: Acute Category: Medical Code(s): J18.9 - Pneumonia, unspecified organism; Y95 - Nosocomial condition (6) Small bowel obstruction Status: Acute Category: Medical Code(s): K56.609 - Unspecified intestinal obstruction, unspecified as to partial versus complete obstruction (7) CAD (coronary artery disease) Status: Chronic Qualifiers: Coronary Disease-Associated Artery/Lesion type: unspecified vessel or lesion type [place] vs. transplanted heart: [place] heart Associated angina: unspecified whether angina present Qualified Code(s): I25.10 - Atherosclerotic heart disease of [place] coronary artery without angina pectoris Category: Medical Code(s): I25.10 - Atherosclerotic heart disease of [place] coronary artery without angina pectoris (8) COPD (chronic obstructive pulmonary disease) Status: Chronic Qualifiers: COPD type: unspecified COPD Qualified Code(s): J44.9 - Chronic obstructive pulmonary disease, unspecified Category: Medical Code(s): J44.9 - Chronic obstructive pulmonary disease, unspecified (9) HLD (hyperlipidemia) Status: Chronic Qualifiers: Hyperlipidemia type: mixed hyperlipidemia Qualified Code(s): E78.2 - Mixed hyperlipidemia Category: Medical Code(s): E78.5 - Hyperlipidemia, unspecified (10) HTN (hypertension) Status: Chronic Qualifiers: Hypertension type: essential hypertension Category: Medical Code(s): I10 - Essential (primary) hypertension (11) KM (obstructive sleep apnea) Status: Chronic Category: Medical Code(s): G47.33 - Obstructive sleep apnea (adult) (pediatric) (12) Postoperative ileus Status: Resolved Category: Medical Code(s): K91.89 - Other postprocedural complications and disorders of digestive system; K56.7 - Ileus, unspecified (13) Thrush Status: Acute Category: Medical Code(s): B37.0 - Candidal stomatitis (14) Hypokalemia Status: Acute Category: Medical Code(s): E87.6 - Hypokalemia - Assessment and plan all Dx Assessment and Plan for all problems:: #Acute hypoxic respiratory failure: #Necrotizing pneumonia: #Bilateral pleural effusions: 76-year-old greater than [id number] smoking history. Carries a diagnosis of COPD. Not using any oxygen at home. Using Anoro inhaler. History of small bowel obstruction presented to the ER on 01/30/2022 with nausea and vomiting upon imaging concerning for small bowel obstru
--- NOTE | 2022-02-10 18:09 | PC.NURSE ---
pt has been up to the chair several times this shift. she is able to slightly ambulate in the room but this is limited r/t the vapotherm as well as weakness and fatigue. lungs are diminished, bowel sounds are active. midline incision justo. vapotherm is 30/40
[2022-02-10 18:43] LABS: Anion Gap 10.6 mEq/L (5-15); Blood Urea Nitrogen 18 mg/dl (7-17); Calcium 7.4 mg/dl (8.4-10.2); Carbon Dioxide 28 mmol/L (22.0-30.0); Chloride 99 mmol/L (98-107); Creatinine Clearance Estimated 50 mL/min (50-200); Estimated Glomerular Filt Rate 70 ml/min (>60); GFR (African American) 84 ML/MIN (>60); Glucose 131 mg/dl (74-100); Potassium 3.6 mmoL/L (3.5-5.1); Sodium 134 mmol/L (136-145)
[2022-02-11] VITALS (11 sets, daily range): BP systolic 97–124; BP diastolic 51–78; PULSE 60–90; RESP 16–24; TEMP 36.4–36.9; O2SAT 91–100; BMI 24.5
[2022-02-11 06:42] LABS: Basophils # 0.1 K/mm3 (0-0.2); Eosinophils # 0.2 K/mm3 (0.0-0.4); Eosinophils % 2.9 % (0.1-12.0); Hematocrit 27.9 % (37.0-47.0); Hemoglobin 8.9 g/dL (12.2-16.2); Lymphocytes # 1.1 K/mm3 (0.7-4.5); Lymphocytes % 18.1 % (10-50); Mean Corpuscular HGB Conc 31.9 g/dL (31.8-35.4); Mean Corpuscular Hemoglobin 28.5 pg (27.0-31.2); Mean Corpuscular Volume 89.3 fl (81-99); Mean Platelet Volume 9.4 fl (7.4-10.4); Monocytes # 0.4 K/mm3 (0.1-1.0); Neutrophils # 4.2 K/mm3 (1.8-7.8); Platelet Count 428 K/mm3 (142-424); Red Blood Count 3.13 M/mm3 (4.20-5.40); Red Cell Distribution Width 15.3 % (11.5-17.5); White Blood Count 5.9 K/mm3 (4.8-10.8)
[2022-02-11 06:48] LABS: Anion Gap 5.3 mEq/L (5-15); Blood Urea Nitrogen 15 mg/dl (7-17); Calcium 7.3 mg/dl (8.4-10.2); Carbon Dioxide 31 mmol/L (22.0-30.0); Chloride 99 mmol/L (98-107); Cholesterol 112 mg/dl (140-200); Creatinine Clearance Estimated 50 mL/min (50-200); Estimated Glomerular Filt Rate 70 ml/min (>60); GFR (African American) 84 ML/MIN (>60); Glucose 106 mg/dl (74-100); HDL Cholesterol 37 mg/dl (40-60); Potassium 3.3 mmoL/L (3.5-5.1); Sodium 132 mmol/L (136-145); Triglycerides 122 mg/dl (30-150); VLDL Cholesterol 24 mg/dL (0-40)
--- NOTE | 2022-02-11 08:44 | HMH.ACPN2 ---
Internal Medicine - PN: Subj *Date: 02/11/22 *Time: 08:44 Interval history: Patient did well overnight. Vapotherm is been weaned to down nicely. She is eating quite a bit this morning. Yesterday was her birthday and she was able to enjoy a piece of birthday cake. Exam Vital signs and Labs for Last 24 Hours: Temp Pulse Resp BP Pulse Ox 98.4 F 60 19 124/62 91 L 02/11/22 04:00 02/11/22 04:00 02/11/22 04:00 02/11/22 04:00 02/11/22 06:33 Laboratory Results - last 24 hr 02/10/22 18:16: Sodium 134 L, Potassium 3.6 D, Chloride 99, Carbon Dioxide 28, Anion Gap 10.6, BUN 18 H D, Creatinine 0.80, Estimated Creat Clear 50, Estimated GFR 70, Est GFR ( Amer) 84, Glucose 131 H, Calcium 7.4 L 02/11/22 06:11: WBC 5.9 D, RBC 3.13 L, Hgb 8.9 L, Hct 27.9 L, MCV 89.3, MCH 28.5, MCHC 31.9, RDW 15.3, Plt Count 428 H, MPV 9.4, Neut % (Auto) 71.0, Lymph % (Auto) 18.1, [place] % (Auto) 7.0, Eos % (Auto) 2.9, Baso % (Auto) 1.0, Neut # (Auto) 4.2, Lymph # (Auto) 1.1, [place] # (Auto) 0.4, Eos # (Auto) 0.2, Baso # (Auto) 0.1 02/11/22 06:11: Sodium 132 L, Potassium 3.3 L, Chloride 99, Carbon Dioxide 31 H, Anion Gap 5.3, BUN 15, Creatinine 0.80, Estimated Creat Clear 50, Estimated GFR 70, Est GFR ( Amer) 84, Glucose 106 H, Calcium 7.3 L, Triglycerides 122, Cholesterol 112 L, LDL Cholesterol Direct 38.60 L, VLDL Cholesterol 24, HDL Cholesterol 37 L, Cholesterol/HDL Ratio 3.0 I & O for Last 24 hours: Intake & Output 02/08/22 02/09/22 02/10/22 02/11/22 11:59 11:59 11:59 11:59 Intake Total 990 / 990 840 / 840 870 / 870 610 / 610 Output Total 200 / 200 1800 / 1800 1600 / 2000 1500 / 1500 Balance 790 / 790 -960 / -960 -730 / -1130 -890 / -890 Weight 160 lb 11.2 oz 153 lb 3.2 oz 148 lb 12.8 oz 147 lb 8 oz Microbiology Reports for the Last 24 Hours: Microbiology 02/10/22 12:00 Sputum - Expectorated Sputum Gram Stain - Final Narrative: Alert, pleasant. Smiles. Oropharynx clear. Lungs have very scattered rhonchi but clear with a deep breath. Heart rate regular. Abdomen is soft, minimal, expected postoperative tenderness around incision sites. Trace ankle edema. Neurologically intact except for global weakness. Assessment and Plan (1) Atrial fibrillation with RVR Status: Resolved Category: Medical Code(s): I48.91 - Unspecified atrial fibrillation (2) Acute on chronic diastolic (congestive) heart failure Status: Acute Category: Medical Code(s): I50.33 - Acute on chronic diastolic (congestive) heart failure (3) Hospital-acquired pneumonia Status: Acute Category: Medical Code(s): J18.9 - Pneumonia, unspecified organism; Y95 - Nosocomial condition (4) Small bowel obstruction Status: Acute Category: Medical Code(s): K56.609 - Unspecified intestinal obstruction, unspecified as to partial versus complete obstruction (5) CAD (coronary artery disease) Status: Chronic Qualifiers: Coronary Disease-Associated Artery/Lesion type: unspecified vessel or lesion type [place] vs. transplanted heart: [place] heart Associated angina: unspecified whether angina present Qualified Code(s): I25.10 - Atherosclerotic heart disease of [place] coronary artery without angina pectoris Category: Medical Code(s): I25.10 - Atherosclerotic heart disease of [place] coronary artery without angina pectoris (6) COPD (chronic obstructive pulmonary disease) Status: Chronic Qualifiers: COPD type: unspecified COPD Qualified Code(s): J44.9 - Chronic obstructive pulmonary disease, unspecified Category: Medical Code(s): J44.9 - Chronic obstructive pulmonary disease, unspecified (7) HLD (hyperlipidemia) Status: Chronic Qualifiers: Hyperlipidemia type: mixed hyperlipidemia Qualified Code(s): E78.2 - Mixed hyperlipidemia Category: Medical Code(s): E78.5 - Hyperlipidemia, unspecified (8) HTN (hypertension) Status: Chronic Qualifiers: Hypertension type: essential hyperten
--- NOTE | 2022-02-11 09:21 | HMH.PULMPN ---
Internal Medicine - PN: Subj *Date: 02/11/22 *Time: 11:30 Interval history: No acute respiratory events overnight. Admits continued improvement in her respiratory symptoms. Exam - Constitutional Constitutional:: Present: no acute distress, comfortable - HENMT Exam HENMT: Present: normocephalic, atraumatic - Eye Exam Eyes:: Present: normal appearance both eyes and related structures - Neck Exam Neck:: Present: normal visual inspection - Respiratory Exam Respiratory:: Present: able to speak in complete sentences, no respiratory distress, rhonchi - Cardiovascular Exam Cardiac:: Present: S1, S2 - GI Exam GI:: Present: soft - Skin Exam Skin: Present: warm, no rash - Neurological Exam Neurological: Present: alert, awake - Extremities Exam Extremities: Present: no cyanosis, no clubbing, edema Assessment and Plan (1) Atrial fibrillation with RVR Status: Resolved Category: Medical Code(s): I48.91 - Unspecified atrial fibrillation (2) Acute on chronic diastolic (congestive) heart failure Status: Acute Category: Medical Code(s): I50.33 - Acute on chronic diastolic (congestive) heart failure (3) Hospital-acquired pneumonia Status: Acute Category: Medical Code(s): J18.9 - Pneumonia, unspecified organism; Y95 - Nosocomial condition (4) Small bowel obstruction Status: Acute Category: Medical Code(s): K56.609 - Unspecified intestinal obstruction, unspecified as to partial versus complete obstruction (5) CAD (coronary artery disease) Status: Chronic Qualifiers: Coronary Disease-Associated Artery/Lesion type: unspecified vessel or lesion type [place] vs. transplanted heart: [place] heart Associated angina: unspecified whether angina present Qualified Code(s): I25.10 - Atherosclerotic heart disease of [place] coronary artery without angina pectoris Category: Medical Code(s): I25.10 - Atherosclerotic heart disease of [place] coronary artery without angina pectoris (6) COPD (chronic obstructive pulmonary disease) Status: Chronic Qualifiers: COPD type: unspecified COPD Qualified Code(s): J44.9 - Chronic obstructive pulmonary disease, unspecified Category: Medical Code(s): J44.9 - Chronic obstructive pulmonary disease, unspecified (7) HLD (hyperlipidemia) Status: Chronic Qualifiers: Hyperlipidemia type: mixed hyperlipidemia Qualified Code(s): E78.2 - Mixed hyperlipidemia Category: Medical Code(s): E78.5 - Hyperlipidemia, unspecified (8) HTN (hypertension) Status: Chronic Qualifiers: Hypertension type: essential hypertension Category: Medical Code(s): I10 - Essential (primary) hypertension (9) KM (obstructive sleep apnea) Status: Chronic Category: Medical Code(s): G47.33 - Obstructive sleep apnea (adult) (pediatric) (10) Postoperative ileus Status: Resolved Category: Medical Code(s): K91.89 - Other postprocedural complications and disorders of digestive system; K56.7 - Ileus, unspecified (11) NSTEMI (non-ST elevated myocardial infarction) Status: Acute Category: Medical Code(s): I21.4 - Non-ST elevation (NSTEMI) myocardial infarction (12) Thrush Status: Acute Category: Medical Code(s): B37.0 - Candidal stomatitis - Assessment and plan all Dx Assessment and Plan for all problems:: #Acute hypoxic respiratory failure: #Necrotizing pneumonia: #Bilateral pleural effusions: 76-year-old greater than [id number] smoking history. Carries a diagnosis of COPD. Not using any oxygen at home. Using Anoro inhaler. History of small bowel obstruction presented to the ER on 01/30/2022 with nausea and vomiting upon imaging concerning for small bowel obstruction and was admitted status post surgery with extensive lysis of adhesions. Patient respiratory status has been borderline since admission needing nasal cannula from 2-3 with saturations recorded as low as 85%, she appeared to be gradually worsened over the bleedin
--- NOTE | 2022-02-11 12:27 | HMH.PNCARD ---
Subjective Date: 02/11/22 Time: 10:00 Principal diagnosis: diastolic chf, afib Interval history: This is a 77-year-old white female who was admitted to the hospital with nausea and vomiting. Found to have a small bowel obstruction. She is now tolerating food after having surgical intervention. Cardiology was consulted due to an acute exacerbation of diastolic congestive heart failure. She has been diuresed with IV Lasix. Interval history: This is a 37-year-old white female who is admitted for nausea and vomiting. The patient did undergo surgery for small bowel obstruction. The patient is now tolerating food well. Cardiology was consulted due to an acute exacerbation of diastolic congestive heart failure. She was diuresed with IV Lasix overnight and has a -2 L fluid balance. She states that her shortness of breath is significantly improved as well as her lower extremity edema. She states that she is much better today. Her oxygen has been weaned down this morning as well. She denies any chest pain or pressure. She denies any fever, chills, nausea, vomiting, diarrhea or PND. She states that she still has some orthopnea with her shortness of breath but this is much better as well. Exam Vital signs and Labs for Last 24 Hours: Temp Pulse Resp BP Pulse Ox 98.5 F 78 24 100/55 L 96 02/11/22 11:40 02/11/22 11:40 02/11/22 11:40 02/11/22 11:40 02/11/22 11:40 Laboratory Results - last 24 hr 02/10/22 18:16: Sodium 134 L, Potassium 3.6 D, Chloride 99, Carbon Dioxide 28, Anion Gap 10.6, BUN 18 H D, Creatinine 0.80, Estimated Creat Clear 50, Estimated GFR 70, Est GFR ( Amer) 84, Glucose 131 H, Calcium 7.4 L 02/11/22 06:11: WBC 5.9 D, RBC 3.13 L, Hgb 8.9 L, Hct 27.9 L, MCV 89.3, MCH 28.5, MCHC 31.9, RDW 15.3, Plt Count 428 H, MPV 9.4, Neut % (Auto) 71.0, Lymph % (Auto) 18.1, [place] % (Auto) 7.0, Eos % (Auto) 2.9, Baso % (Auto) 1.0, Neut # (Auto) 4.2, Lymph # (Auto) 1.1, [place] # (Auto) 0.4, Eos # (Auto) 0.2, Baso # (Auto) 0.1 02/11/22 06:11: Sodium 132 L, Potassium 3.3 L, Chloride 99, Carbon Dioxide 31 H, Anion Gap 5.3, BUN 15, Creatinine 0.80, Estimated Creat Clear 50, Estimated GFR 70, Est GFR ( Amer) 84, Glucose 106 H, Calcium 7.3 L, Triglycerides 122, Cholesterol 112 L, LDL Cholesterol Direct 38.60 L, VLDL Cholesterol 24, HDL Cholesterol 37 L, Cholesterol/HDL Ratio 3.0 I & O for Last 24 hours: Intake & Output 02/08/22 02/09/22 02/10/22 02/11/22 23:59 23:59 23:59 23:59 Intake Total 990 / 990 720 / 720 1000 / 1000 120 / 120 Output Total 2800 / 3400 1300 / 1300 800 / 800 Balance 990 / 490 -2080 / -2680 -300 / -300 -680 / -680 Weight 160 lb 11.2 oz 153 lb 3.2 oz 148 lb 12.8 oz 147 lb 8 oz Microbiology Reports for the Last 24 Hours: Microbiology 02/10/22 12:00 Sputum - Expectorated Sputum Gram Stain - Final Narrative: Telemetry strip is sinus rhythm - Constitutional no acute distress, average body habitus - *Routine HEENT Exam Head: Present: normocephalic, atraumatic Eye: Present: EOMI, PERRL ENT: Present: mucous membranes moist - *Routine Neck Exam Present: supple, full ROM, normal carotid upstroke. Absent: JVD, carotid bruit, lymphadenopathy - *Routine Respiratory Exam Present: decreased breath sounds, rales - *Routine Cardiovascular Exam Present: RRR, Normal S1, Normal S2 - *Routine Abdominal Exam Present: soft, normoactive bowel sounds. Absent: tenderness - *Routine Extremities Exam Present: full ROM, pulses intact, normal capillary refill. Absent: cyanosis, clubbing, edema - *Routine Skin Exam Present: intact, warm. Absent: erythema, rash - *Routine Neurological Exam Present: alert, oriented X3, CN II-XII intact. Absent: sensory deficit, motor deficit Progress Note: A&P (1) Atrial fibrillation with RVR Status: Resolved (2) Acute on chronic diastolic (congestive) heart failure Status: Acute (3) Hospital-acquired pneumonia Status: Acute (4)
--- NOTE | 2022-02-11 13:11 | PC.NURSE ---
patient educated on need to change iv. iv still draws back and flushes great. patient stated she would like to keep this iv in and not be stuck for a new one at this time. stated she felt she would get to go home in the next couple of days and stated if it was still working she didn't want it changed. dressing was changed and area cleaned
[2022-02-12] VITALS: BP 100/57; PULSE 70; PULSE 78; RESP 18; TEMP 36.4; O2SAT 96
[2022-02-12 04:00] VITALS: BP 104/59; PULSE 70; PULSE 79; RESP 16; TEMP 36.4; O2SAT 97
[2022-02-12 04:59] VITALS: BMI 23.3
[2022-02-12 06:27] LABS: Basophils % 0.6 % (0.1-2.0); Eosinophils # 0.2 K/mm3 (0.0-0.4); Eosinophils % 2.9 % (0.1-12.0); Hemoglobin 9.3 g/dL (12.2-16.2); Lymphocytes # 1.3 K/mm3 (0.7-4.5); Lymphocytes % 17.5 % (10-50); Mean Corpuscular Hemoglobin 29.1 pg (27.0-31.2); Mean Platelet Volume 9.4 fl (7.4-10.4); Monocytes # 0.5 K/mm3 (0.1-1.0); Monocytes % 6.2 % (1.7-9.3); Neutrophils # 5.5 K/mm3 (1.8-7.8); Neutrophils % 72.9 % (37.0-80.0); Platelet Count 464 K/mm3 (142-424); Red Blood Count 3.18 M/mm3 (4.20-5.40); Red Cell Distribution Width 14.9 % (11.5-17.5); White Blood Count 7.6 K/mm3 (4.8-10.8)
[2022-02-12 06:28] LABS: Anion Gap 9.7 mEq/L (5-15); Blood Urea Nitrogen 21 mg/dl (7-17); Calcium 7.9 mg/dl (8.4-10.2); Carbon Dioxide 29 mmol/L (22.0-30.0); Chloride 99 mmol/L (98-107); Creatinine Clearance Estimated 47 mL/min (50-200); Estimated Glomerular Filt Rate 54 ml/min (>60); GFR (African American) 65 ML/MIN (>60); Glucose 104 mg/dl (74-100); Potassium 3.7 mmoL/L (3.5-5.1); Sodium 134 mmol/L (136-145)
[2022-02-12 08:00] VITALS: BP 103/60; PULSE 68; PULSE 70; RESP 18; TEMP 36.6; O2SAT 95; O2SAT 96
--- NOTE | 2022-02-12 08:37 | HMH.ACPN ---
Internal Medicine - PN: Subj *Date: 02/12/22 *Time: 08:37 Exam Vital signs and Labs for Last 24 Hours: Temp Pulse Resp BP Pulse Ox 97.9 F 68 18 103/60 L 96 02/12/22 08:00 02/12/22 08:00 02/12/22 08:00 02/12/22 08:00 02/12/22 08:00 Laboratory Results - last 24 hr 02/12/22 05:34: WBC 7.6 D, RBC 3.18 L, Hgb 9.3 L, Hct 29.0 L, MCV 91.0, MCH 29.1, MCHC 32.0, RDW 14.9, Plt Count 464 H, MPV 9.4, Neut % (Auto) 72.9, Lymph % (Auto) 17.5, [place] % (Auto) 6.2, Eos % (Auto) 2.9, Baso % (Auto) 0.6, Neut # (Auto) 5.5, Lymph # (Auto) 1.3, [place] # (Auto) 0.5, Eos # (Auto) 0.2, Baso # (Auto) 0.0 02/12/22 05:34: Sodium 134 L, Potassium 3.7, Chloride 99, Carbon Dioxide 29, Anion Gap 9.7, BUN 21 H D, Creatinine 1.00 D, Estimated Creat Clear 47, Estimated GFR 54 L, Est GFR ( Amer) 65 D, Glucose 104 H, Calcium 7.9 L I & O for Last 24 hours: Intake & Output 02/09/22 02/10/22 02/11/22 02/12/22 23:59 23:59 23:59 23:59 Intake Total 720 / 720 1000 / 1000 600 / 600 Output Total 2800 / 3400 1300 / 1300 900 / 901 Balance -2080 / -2680 -300 / -300 -300 / -301 -1 Weight 69.49 kg 67.495 kg 66.905 kg 63.588 kg Assessment and Plan (1) Atrial fibrillation with RVR Status: Resolved Category: Medical Code(s): I48.91 - Unspecified atrial fibrillation (2) Acute on chronic diastolic (congestive) heart failure Status: Acute Category: Medical Code(s): I50.33 - Acute on chronic diastolic (congestive) heart failure (3) Hospital-acquired pneumonia Status: Acute Category: Medical Code(s): J18.9 - Pneumonia, unspecified organism; Y95 - Nosocomial condition (4) Small bowel obstruction Status: Acute Category: Medical Code(s): K56.609 - Unspecified intestinal obstruction, unspecified as to partial versus complete obstruction (5) CAD (coronary artery disease) Status: Chronic Qualifiers: Coronary Disease-Associated Artery/Lesion type: unspecified vessel or lesion type [place] vs. transplanted heart: [place] heart Associated angina: unspecified whether angina present Qualified Code(s): I25.10 - Atherosclerotic heart disease of [place] coronary artery without angina pectoris Category: Medical Code(s): I25.10 - Atherosclerotic heart disease of [place] coronary artery without angina pectoris (6) COPD (chronic obstructive pulmonary disease) Status: Chronic Qualifiers: COPD type: unspecified COPD Qualified Code(s): J44.9 - Chronic obstructive pulmonary disease, unspecified Category: Medical Code(s): J44.9 - Chronic obstructive pulmonary disease, unspecified (7) HLD (hyperlipidemia) Status: Chronic Qualifiers: Hyperlipidemia type: mixed hyperlipidemia Qualified Code(s): E78.2 - Mixed hyperlipidemia Category: Medical Code(s): E78.5 - Hyperlipidemia, unspecified (8) HTN (hypertension) Status: Chronic Qualifiers: Hypertension type: essential hypertension Category: Medical Code(s): I10 - Essential (primary) hypertension (9) KM (obstructive sleep apnea) Status: Chronic Category: Medical Code(s): G47.33 - Obstructive sleep apnea (adult) (pediatric) (10) Postoperative ileus Status: Resolved Category: Medical Code(s): K91.89 - Other postprocedural complications and disorders of digestive system; K56.7 - Ileus, unspecified (11) NSTEMI (non-ST elevated myocardial infarction) Status: Acute Category: Medical Code(s): I21.4 - Non-ST elevation (NSTEMI) myocardial infarction (12) Thrush Status: Acute Category: Medical Code(s): B37.0 - Candidal stomatitis The patient's infection will respond to the chosen ABx?: Yes Is the patient receiving the right drug, dose, and route?: Yes Could a more targeted ABx be ordered?: No (WBC 7.6, AFEBRILE, SPUTUM GRAM - RODS, SBO, CONTINUE CURRENT)
--- NOTE | 2022-02-12 09:03 | HMH.DCSUM ---
General - General Admission date:: 01/30/22 Discharge date: 02/12/22 HPI HPI: 76-year-old female with longstanding history of small bowel obstruction. Had surgery about 18 years ago for an obstruction but has had a few repeat episodes since. Most recent was 3 years ago. No surgery since her initial procedure. She presented to the ER yesterday evening after having nausea and vomiting for 2 to 3 days. No diarrhea. No blood in vomit or stool. Imaging showed small bowel obstruction. Labs relatively unremarkable. Decision made to admit for bowel rest and surgery consult. On interview this morning, she states that she is feeling somewhat better. Still sore in her belly. No nausea today. Is somewhat hungry. No vomiting overnight. Afebrile and hemodynamically stable. Hospital Course Hospital Course: Patient was admitted after surgery. She did very nicely from a surgical perspective, with 3 or 4 days of bowel rest but slowly returned to normal vis-?-vis flatus production and bowel movement occurrence. Was able to advance to clear liquids appropriately. Her course was complicated by rapid A. fib, hypotension and evidence of CHF with worsening of her pulmonary disease postoperatively. Surgery continue to follow and we consulted cardiology and pulmonology. Input was appreciated and appreciate expertise. Patient was aggressively diuresed and aggressively treated for COPD. This improved her situation over the next several days and she has been able to get off Vapotherm onto nasal cannula oxygen. She lost about 20 pounds postoperatively with aggressive diuresis. This morning she is doing well, up in a chair. Doing her own activities of daily living vis-?-vis bathroom habits and feeding. Plan will be to discharge home today. She will be on daily Lasix therapy. We will send her home with nebulizer treatments, home oxygen. Home health therapy. She will have follow-up with me and with surgery next week. Patient had 10 days of IV antibiotics during the hospitalization. Did have a culture from sputum showing gram-negative rods at this point but given her completion of antibiotics and clinical improvement we will hold off on p.o. antibiotics for home use. Objective Vital signs: Temp Pulse Resp BP Pulse Ox 97.9 F 68 18 103/60 L 95 02/12/22 08:00 02/12/22 08:00 02/12/22 08:00 02/12/22 08:00 02/12/22 08:00 no acute distress - *Routine HEENT Exam Head: Present: normocephalic Eye: Present: EOMI, PERRL ENT: Present: mucous membranes moist - *Routine Neck Exam Present: supple - *Routine Respiratory Exam Present: CTA bilaterally, rhonchi - *Routine Cardiovascular Exam Present: RRR - *Routine Abdominal Exam Present: soft, normoactive bowel sounds. Absent: tenderness Comments: Surgical scar noted. Positive bowel sounds. Strips intact - *Routine Extremities Exam Absent: cyanosis, clubbing, edema - *Routine Skin Exam Present: warm. Absent: rash - Detailed Eye Exam Eyelids: Bilateral normal inspection Results Labs on day of discharge: Labs from last 24 hours 02/12/22 02/12/22 05:34 05:34 WBC 7.6 D RBC 3.18 L Hgb 9.3 L Hct 29.0 L MCV 91.0 MCH 29.1 MCHC 32.0 RDW 14.9 Plt Count 464 H MPV 9.4 Neut % (Auto) 72.9 Lymph % (Auto) 17.5 [place] % (Auto) 6.2 Eos % (Auto) 2.9 Baso % (Auto) 0.6 Neut # (Auto) 5.5 Lymph # (Auto) 1.3 [place] # (Auto) 0.5 Eos # (Auto) 0.2 Baso # (Auto) 0.0 Sodium 134 L Potassium 3.7 Chloride 99 Carbon Dioxide 29 Anion Gap 9.7 BUN 21 H D Creatinine 1.00 D Estimated Creat Clear 47 Estimated GFR 54 L Est GFR ( Amer) 65 D Glucose 104 H Calcium 7.9 L Preliminary micro results at discharge 02/03/22 18:48 Sputum Culture - Preliminary Sputum - Expectorated Sputum Gram Negative Rods DS: Diagnosis - Discharge Diagnosis (1) Atrial fibrillation with RVR
--- NOTE | 2022-02-12 09:34 | HMH.PNCARD ---
Subjective Date: 02/12/22 Time: 09:30 Principal diagnosis: diastolic chf, afib Interval history: This is a 77-year-old white female who was admitted to the hospital with nausea and vomiting. She was found to have a small bowel obstruction and is status post surgery. Cardiology was consulted due to an exacerbation of diastolic congestive heart failure. She has been diuresed with IV Lasix. Today she states that she is feeling much better. Her shortness of breath has significantly improved. She denies any lower extremity edema. She denies any chest pain or pressure. She denies any fever, chills, nausea, vomiting or diarrhea. Exam Vital signs and Labs for Last 24 Hours: Temp Pulse Resp BP Pulse Ox 97.9 F 68 18 103/60 L 95 02/12/22 08:00 02/12/22 08:00 02/12/22 08:00 02/12/22 08:00 02/12/22 08:00 Laboratory Results - last 24 hr 02/12/22 05:34: WBC 7.6 D, RBC 3.18 L, Hgb 9.3 L, Hct 29.0 L, MCV 91.0, MCH 29.1, MCHC 32.0, RDW 14.9, Plt Count 464 H, MPV 9.4, Neut % (Auto) 72.9, Lymph % (Auto) 17.5, [place] % (Auto) 6.2, Eos % (Auto) 2.9, Baso % (Auto) 0.6, Neut # (Auto) 5.5, Lymph # (Auto) 1.3, [place] # (Auto) 0.5, Eos # (Auto) 0.2, Baso # (Auto) 0.0 02/12/22 05:34: Sodium 134 L, Potassium 3.7, Chloride 99, Carbon Dioxide 29, Anion Gap 9.7, BUN 21 H D, Creatinine 1.00 D, Estimated Creat Clear 47, Estimated GFR 54 L, Est GFR ( Amer) 65 D, Glucose 104 H, Calcium 7.9 L I & O for Last 24 hours: Intake & Output 02/09/22 02/10/22 02/11/22 02/12/22 23:59 23:59 23:59 23:59 Intake Total 720 / 720 1000 / 1000 600 / 600 Output Total 2800 / 3400 1300 / 1300 900 / 901 1 / 1 Balance -2080 / -2680 -300 / -300 -300 / -301 -1 / -1 Weight 153 lb 3.2 oz 148 lb 12.8 oz 147 lb 8 oz 140 lb 3 oz Progress Note: A&P (1) Acute on chronic diastolic (congestive) heart failure Status: Acute (2) Atrial fibrillation with RVR Status: Resolved (3) Hospital-acquired pneumonia Status: Acute (4) Small bowel obstruction Status: Acute (5) CAD (coronary artery disease) Status: Chronic (6) COPD (chronic obstructive pulmonary disease) Status: Chronic (7) HLD (hyperlipidemia) Status: Chronic (8) HTN (hypertension) Status: Chronic (9) KM (obstructive sleep apnea) Status: Chronic (10) Postoperative ileus Status: Resolved (11) NSTEMI (non-ST elevated myocardial infarction) Status: Ruled-out (12) Thrush Status: Acute Assessment and Plan for All Diagnoses:: Plan: 1. The patient was mated to the hospital with a small bowel obstruction. She is status post surgical intervention and is now tolerating food well. This is being managed by her primary care team and surgery team. 2. The patient did go into atrial fibrillation with RVR while admitted. She was treated with a diltiazem drip. She has now on oral diltiazem and tolerating this well. She remains in sinus rhythm today. 3. The patient has a [id number] score of at least 6. She is taking Xarelto for long-term anticoagulation. She is tolerating this well and denies any bleeding. 4. The patient did have an elevated troponin consistent with a non-STEMI. This is most likely demand ischemia from her CHF. Recent cardiac catheterization in 2019 showed mild to moderate coronary artery disease. Her echo showed a preserved ejection fraction with no wall motion abnormalities. We do recommend an outpatient ischemic evaluation when she is discharged from the hospital and recovered from her small bowel obstruction. 5. The patient had an acute exacerbation of diastolic congestive heart failure and pulmonary hypertension she has been receiving IV Lasix. Her weight is down 20 pounds. Her intake and output have not been accurately recorded so we are not sure what her fluid balance is overnight but her weight is down 20 pounds. We will stop IV Lasix and start Lasix 40 mg p.o. twice daily and spironolactone 50 mg p.o. twice daily. 6. Her blood pressure
--- NOTE | 2022-02-12 09:46 | PC.NURSE ---
Addendum entered by Manjeet Salgado RN 02/12/22 10:05: ROOM AIR SAT OF 88% WAS AT REST. Original Note: PT ROOM AIR SAT IS 88%. O2 RE-APPLIED.
--- NOTE | 2022-02-12 09:46 | CARE MANAGER ---
Patient will need bedside commode and rolling walker. The patient has a mobility impairment that cannot be corrected with a cane and the distance to the bathroom is difficult for patient to navigate. HIMANSHU Sauceda
--- NOTE | 2022-02-12 09:54 | CARE MANAGER ---
Patient will require DME upon discharge including BSC, walker, and Oxygen. Patient requested [facility] and information faxed there. HIMANSHU Sauceda
--- NOTE | 2022-02-12 10:11 | HMH.PULMPN ---
Internal Medicine - PN: Subj *Date: 02/12/22 *Time: 10:11 Interval history: No acute respiratory vents overnight. Patient admits continued improvement in her symptoms. Exam - Constitutional Constitutional:: Present: no acute distress, comfortable - HENMT Exam HENMT: Present: normocephalic, atraumatic - Eye Exam Eyes:: Present: normal appearance both eyes and related structures - Neck Exam Neck:: Present: normal visual inspection - Respiratory Exam Respiratory:: Present: able to speak in complete sentences, no respiratory distress, rhonchi. Absent: wheezing - Cardiovascular Exam Cardiac:: Present: S1, S2 - GI Exam GI:: Present: soft, no hepatosplenomegaly - Skin Exam Skin: Present: warm, no rash - Neurological Exam Neurological: Present: alert, awake, normal cognition - Extremities Exam Extremities: Present: no cyanosis, no clubbing, no edema Assessment and Plan (1) Acute on chronic diastolic (congestive) heart failure Status: Acute Category: Medical Code(s): I50.33 - Acute on chronic diastolic (congestive) heart failure (2) Atrial fibrillation with RVR Status: Resolved Category: Medical Code(s): I48.91 - Unspecified atrial fibrillation (3) Hospital-acquired pneumonia Status: Acute Category: Medical Code(s): J18.9 - Pneumonia, unspecified organism; Y95 - Nosocomial condition (4) Small bowel obstruction Status: Acute Category: Medical Code(s): K56.609 - Unspecified intestinal obstruction, unspecified as to partial versus complete obstruction (5) CAD (coronary artery disease) Status: Chronic Qualifiers: Coronary Disease-Associated Artery/Lesion type: unspecified vessel or lesion type [place] vs. transplanted heart: [place] heart Associated angina: unspecified whether angina present Qualified Code(s): I25.10 - Atherosclerotic heart disease of [place] coronary artery without angina pectoris Category: Medical Code(s): I25.10 - Atherosclerotic heart disease of [place] coronary artery without angina pectoris (6) COPD (chronic obstructive pulmonary disease) Status: Chronic Qualifiers: COPD type: unspecified COPD Qualified Code(s): J44.9 - Chronic obstructive pulmonary disease, unspecified Category: Medical Code(s): J44.9 - Chronic obstructive pulmonary disease, unspecified (7) HLD (hyperlipidemia) Status: Chronic Qualifiers: Hyperlipidemia type: mixed hyperlipidemia Qualified Code(s): E78.2 - Mixed hyperlipidemia Category: Medical Code(s): E78.5 - Hyperlipidemia, unspecified (8) HTN (hypertension) Status: Chronic Qualifiers: Hypertension type: essential hypertension Category: Medical Code(s): I10 - Essential (primary) hypertension (9) KM (obstructive sleep apnea) Status: Chronic Category: Medical Code(s): G47.33 - Obstructive sleep apnea (adult) (pediatric) (10) Postoperative ileus Status: Resolved Category: Medical Code(s): K91.89 - Other postprocedural complications and disorders of digestive system; K56.7 - Ileus, unspecified (11) NSTEMI (non-ST elevated myocardial infarction) Status: Ruled-out Category: Medical Code(s): I21.4 - Non-ST elevation (NSTEMI) myocardial infarction (12) Thrush Status: Acute Category: Medical Code(s): B37.0 - Candidal stomatitis - Assessment and plan all Dx Assessment and Plan for all problems:: #Acute hypoxic respiratory failure: #Necrotizing pneumonia: #Bilateral pleural effusions: 76-year-old greater than [id number] smoking history. Carries a diagnosis of COPD. Not using any oxygen at home. Using Anoro inhaler. History of small bowel obstruction presented to the ER on 01/30/2022 with nausea and vomiting upon imaging concerning for small bowel obstruction and was admitted status post surgery with extensive lysis of adhesions. Patient respiratory status has been borderline since admission needing nasal cannula from 2-3 with saturations recorded as low
--- NOTE | 2022-02-12 11:08 | PC.NURSE ---
SPOKE WITH A [facility] REGARDING MEDICATION CHANGES FOR LASIX AND SPIRANOLACTONE. HOLD NEW DOSE SINCE MORNING DOSES WERE ALREADY GIVEN
--- NOTE | 2022-02-13 14:54 | CARE MANAGER ---
Contacted patient related to discharge from hospital. Patient states she is doing well. She is using incentive spirometer and still coughing with sputum production. She states she was able to get all her medications except for the nebulizer medications. They called Dr. Martinez's office and left a message. I have left message for Dr. Delaney. Appears Combivent inhaler was ordered but not nebulizer medication. Denies other questions or concerns. HIMANSHU Sauceda
== END 2022-02-12 11:20 | disposition home health service (06) | DRG 335 ==
LOC: ER 04:29 → 2ND 05:00 → OB 02-01 20:11 → 2ND 02-03 11:02 → ICU 02-04 11:38 → 2ND 02-06 15:12
PROVIDERS: Nurse Practitioner Family; Surgery; Admitting Provider Internal Medicine Adolescent Medicine; Emergency Provider Emergency Medicine; PCP Internal Medicine Adolescent Medicine; Visit Provider Internal Medicine Adolescent Medicine
PROC: (CPT 49000; principal; 2022-01-30 13:30)
DX: K56.50 Intestinal adhesions [bands], unspecified as to partial versus complete obstruction (principal); J18.9 Pneumonia, unspecified organism; J96.01 Acute respiratory failure with hypoxia; I21.A1 Myocardial infarction type 2; I50.33 Acute on chronic diastolic (congestive) heart failure; N17.9 Acute kidney failure, unspecified; K56.7 Ileus, unspecified; Y95 Nosocomial condition; I48.91 Unspecified atrial fibrillation; J44.9 Chronic obstructive pulmonary disease, unspecified; I25.10 Atherosclerotic heart disease of native coronary artery without angina pectoris; K21.9 Gastro-esophageal reflux disease without esophagitis; Z79.899 Other long term (current) drug therapy; Z95.5 Presence of coronary angioplasty implant and graft; Z87.891 Personal history of nicotine dependence; E78.5 Hyperlipidemia, unspecified; G47.33 Obstructive sleep apnea (adult) (pediatric); E87.6 Hypokalemia; E83.42 Hypomagnesemia; B37.9 Candidiasis, unspecified; I11.0 Hypertensive heart disease with heart failure; I27.20 Pulmonary hypertension, unspecified
CPT/HCPCS: 44005; 36415; 71045; 71046; 71275; 74177; 80048; 80053; 80061; 81001; 82803; 83605; 83690; 83735; 83880; 84145; 84484; 85007; 85025; 85651; 86140; 87040; 87070; 87077; 87186; 87205; 87486; 87581; 87632; 87798; 88300; 93005; 93306; 94640; 94760; 94761; 96365; 96375; 97110; 97116; 97162; 97165; 97530; 97535; 99285; C9803; J1956; J2405; J2543; J3475; Q9967; U0003; U0005

== ENCOUNTER 2022-02-15 13:22 | Inpatient (IN) | payer MEDICARE, BC, SELFPAY ==
[2022-02-15] VITALS (13 sets, daily range): BP systolic 110–157; BP diastolic 58–81; PULSE 68–96; RESP 16–18; TEMP 36.6–36.7; O2SAT 95–100; BMI 19.4; BMI 21.8
--- NOTE | 2022-02-15 13:30 | CT_ITS ---
PROCEDURE INFORMATION: Exam: CT Abdomen And Pelvis With Contrast Exam date and time: 02/15/2022 2:33 PM Age: 77 years old Clinical indication: Nausea and vomiting; Additional info: Abdominal pain, nausea, vomiting TECHNIQUE: Imaging protocol: Computed tomography of the abdomen and pelvis with contrast. Radiation optimization: All CT scans at this facility use at least one of these dose optimization techniques: automated exposure control; mA and/or kV adjustment per patient size (includes targeted exams where dose is matched to clinical indication); or iterative reconstruction. Contrast material: ISOVUE; Contrast volume: 75 ml; Contrast route: IV; COMPARISON: CT ABDOMEN PELVIS W CON 01/30/2022 2:47 AM FINDINGS: Lungs: Mild interstitial scarring or subsegmental atelectasis in the visualized lungs. No focal consolidation. Heart: Mild cardiomegaly. Multiple coronary artery calcifications are present. No significant pericardial effusion, as visualized. Liver: Upper normal liver size. Calcified granulomas. No suspicious mass. Gallbladder and bile ducts: Cholecystectomy clips. Biliary tree is within normal limits. No calcified stones. Pancreas: The pancreas is normal. Spleen: No splenomegaly. Calcified granulomas. Adrenal glands: The adrenal glands are normal. Kidneys and ureters: The kidneys are normal. The ureters are normal. Stomach and bowel: The stomach is mildly distended with fluid, no acute findings. Findings worrisome for recurrent mechanical small bowel obstruction. There is prominent dilated loop in the posterior right lower quadrant in the region of some surgical sutures, measuring up to 6.3 cm diameter coronal series 1001, image 38, also well seen on axial series 3, images 86-92. Milder gaseous distension of other bowel loops, which are the less prominent compared with the previous exam. This could be due to a closed loop obstruction, versus a recurrent mid to distal obstruction due to adhesion or anastomotic stricture. There is no pneumatosis intestinalis seen within this loop, and no significant wall thickening. Moderate bubbly liquid fecal material and bowel gas throughout the colon and rectum, no dilated colon loops or mucosal thickening. Appendix: No findings of appendicitis. Intraperitoneal space: There is no free intraperitoneal air. There is no significant free intraperitoneal fluid. Slight mesenteric edema noted in the left lower quadrant, e.g. series 3, images 70-77. Vasculature: There is no aortic aneurysm.The vasculature demonstrates diffuse moderate atherosclerotic calcification. No portal venous gas. Lymph nodes: No significantly enlarged lymph nodes by short axis criteria. Urinary bladder: The bladder is normal. Reproductive: Post hysterectomy. No acute findings, as visualized. Bones/joints: Osteopenia. Chronic appearing moderate T9 anterior wedge compression deformity. Severe degenerative disc disease and spondylosis L5-S1. Lower lumbar facet arthropathy.There is no evidence of acute fracture. Lumbar dextroscoliosis. Soft tissues: Anterior abdominal wall scarring.There are no soft tissue masses or fluid collections. IMPRESSION: 1. Recurrent mechanical small bowel obstruction. Prominently dilated right lower quadrant pelvic small bowel loop of 6.3 cm diameter with surgical sutures in the wall, and air-fluid level; question closed loop obstruction, or high-grade anastomotic stricture or adhesion. Milder dilatation of proximal small bowel loops. 2. Mild mesenteric edema, no free fluid or free air to suggest perforation. 3. Bubbly liquid stool and gas throughout the colon, no dilated colon loops or mucosal thicken
--- NOTE | 2022-02-15 13:31 | ECG_ITS ---
APPROVED REPORT Exam: Resting ECG HR:75 bpm ECG Measurements Heart Rate 75 AXES MS 144 P 60 QRSd 90 QRS 85 QT 406 T 82 QTc 434 Conclusion SINUS RHYTHM NORMAL ECG UNCONFIRMED REPORT Electronically signed by : Wally Martinez MD 02/18/2022 17:37:09
--- NOTE | 2022-02-15 13:36 | HMH.EDGENADL ---
ED Disposition Clinical Impression: Small bowel obstruction Disposition: Admitted As Inpatient Condition on Discharge: Fair Time of Disposition: 16:00 - Critical Care Critical Care Time: No Attestation: On 02/15/22, the high probability of a clinically significant, sudden or life threatening deterioration of the following system(s) required my full and direct attention, intervention and personal management. The time I documented below is in addition to time spent performing reported procedures but includes the following listed in this critical care notation. Medical Decision Making - Medical Records Medical records reviewed: Yes: I reviewed the patient's medical records. - Rich Inquiry Pt receiving controlled substance: No Vital Signs: 02/15/22 13:23 02/15/22 13:30 02/15/22 14:00 Temperature 98.0 F Temperature Source Oral Pulse Rate 81 76 Pulse Rate [Right] 96 H Respiratory Rate 17 Blood Pressure 150/81 H 130/70 Blood Pressure [Right Arm] 148/80 H Blood Pressure Mean 104 94 Blood Pressure Mean [Right Arm] 102 Blood Pressure Source [Right Arm] Automatic Cuff Blood Pressure Position [Right Arm] Supine 02 Sat by Pulse Oximetry 97 99 97 Oxygen Delivery Method Nasal Cannula 02/15/22 15:00 02/15/22 15:30 02/15/22 16:00 Temperature Temperature Source Pulse Rate 74 73 70 Pulse Rate [Right] Respiratory Rate Blood Pressure 149/72 H 139/68 133/68 Blood Pressure [Right Arm] Blood Pressure Mean 100 93 90 Blood Pressure Mean [Right Arm] Blood Pressure Source [Right Arm] Blood Pressure Position [Right Arm] 02 Sat by Pulse Oximetry 100 99 100 Oxygen Delivery Method 02/15/22 16:30 02/15/22 17:00 02/15/22 17:10 Temperature 98 F Temperature Source Pulse Rate 76 68 76 Pulse Rate [Right] Respiratory Rate 16 Blood Pressure 157/77 H 135/74 157/77 H Blood Pressure [Right Arm] Blood Pressure Mean 102 94 Blood Pressure Mean [Right Arm] Blood Pressure Source [Right Arm] Blood Pressure Position [Right Arm] 02 Sat by Pulse Oximetry 98 100 Oxygen Delivery Method Nasal Cannula - Lab Data Lab Results 02/15/22 13:56: WBC 7.5, RBC 3.70 L, Hgb 11.0 L, Hct 33.5 L, MCV 90.7, MCH 29.7, MCHC 32.7, RDW 14.4, Plt Count 594 H D, MPV 8.4, Neut % (Auto) 71.2, Lymph % (Auto) 19.6, Carter % (Auto) 6.0, Eos % (Auto) 1.9, Baso % (Auto) 1.3, Neut # (Auto) 5.4, Lymph # (Auto) 1.5, Carter # (Auto) 0.5, Eos # (Auto) 0.1, Baso # (Auto) 0.1 02/15/22 13:56: Sodium 134 L, Potassium 3.9, Chloride 91 L, Carbon Dioxide 37 H, Anion Gap 9.9, BUN 24 H, Creatinine 1.30 H, Estimated Creat Clear 30, Estimated GFR 40 L, Est GFR ( Amer) 48 L, Glucose 121 H, Calcium 11.0 H, Total Bilirubin 0.5, AST 31, ALT 27, Alkaline Phosphatase 80, Total Protein 8.0 D, Albumin 4.0, Globulin 4.0 H, Albumin/Globulin Ratio 1.0 L, Lipase 465 H 02/15/22 14:16: Urine Color Yellow, Urine Appearance Sl cloudy, Urine pH 7.0, Ur Specific [place] 1.015, Urine Protein Negative, Urine Glucose (UA) Negative, Urine Ketones Negative, Urine Blood Negative, Urine Nitrate Negative, Urine Bilirubin Negative, Urine Urobilinogen 0.2, Ur Leukocyte Esterase Trace, Urine WBC Occasional, Ur Squamous Epith Cells 20-50, Ur Renal Epithelial Cell Occasional, Urine Bacteria Trace 02/15/22 15:41: SARS-CoV-2 (PCR) Not detected, Influenza A Untype (PCR) Not detected, Influenza Type B (PCR) Not detected Result diagrams: 02/15/22 13:56 02/15/22 13:56 Orders (Tests/Meds): ED MEDICATIONS Generic Name Dose Route Start Last Admin Trade Name Freq PRN Reason Stop Dose Admin Sodium Chloride 1,000 mls @ 50 mls/hr 02/15/22 17:46 Sod Chlor 0.9% 1000ml Bag IV 03/17/22 17:45 .Q20H ANGELINE Morphine Sulfate 2 mg 02/15/22 17:46 Morphine 2mg/Ml Syringe IV 03/17/22 17:45 Q2HP PRN Severe Pain Ondansetron HCl 4 mg 02/15/22 17:46 Ondansetron 4mg/2ml Vial IV 03/17/22 17:45 Q8HP PRN Nausea Erazo
[2022-02-15 14:12] LABS: Chloride 91 mmol/L (98-107); Potassium 3.9 mmoL/L (3.5-5.1); Sodium 134 mmol/L (136-145)
[2022-02-15 14:14] LABS: Alanine Aminotransferase 27 U/L (12-78); Aspartate Amino Transferase 31 U/L (14-36); Blood Urea Nitrogen 24 mg/dl (7-17); Creatinine Clearance Estimated 30 mL/min (50-200); Estimated Glomerular Filt Rate 40 ml/min (>60); GFR (African American) 48 ML/MIN (>60)
[2022-02-15 14:15] LABS: Alkaline Phosphatase 80 U/L (38-126); Anion Gap 9.9 mEq/L (5-15); Bilirubin,Total 0.5 mg/dl (0.2-1.3); Carbon Dioxide 37 mmol/L (22.0-30.0); Glucose 121 mg/dl (74-100); Lipase 465 U/L (23-300)
--- NOTE | 2022-02-15 14:20 | PC.NURSE ---
ED MD at
[2022-02-15 14:21] LABS: Microscopic, Urine URINE MICROSCOPIC (MICROSCOPIC)
[2022-02-15 14:22] LABS: Basophils # 0.1 K/mm3 (0-0.2); Basophils % 1.3 % (0.1-2.0); Eosinophils # 0.1 K/mm3 (0.0-0.4); Eosinophils % 1.9 % (0.1-12.0); Hematocrit 33.5 % (37.0-47.0); Lymphocytes # 1.5 K/mm3 (0.7-4.5); Lymphocytes % 19.6 % (10-50); Mean Corpuscular HGB Conc 32.7 g/dL (31.8-35.4); Mean Corpuscular Hemoglobin 29.7 pg (27.0-31.2); Mean Corpuscular Volume 90.7 fl (81-99); Mean Platelet Volume 8.4 fl (7.4-10.4); Monocytes # 0.5 K/mm3 (0.1-1.0); Neutrophils # 5.4 K/mm3 (1.8-7.8); Neutrophils % 71.2 % (37.0-80.0); Platelet Count 594 K/mm3 (142-424); Red Cell Distribution Width 14.4 % (11.5-17.5); White Blood Count 7.5 K/mm3 (4.8-10.8)
[2022-02-15 14:25] LABS: Appearance,Urine SL CLOUDY (Clear); Bilirubin,Urine Negative (Negative); Blood, Urine Negative (Negative); Color,Urine YELLOW (Yellow); Glucose,Urine (UA) Negative (Negative); Ketones,Urine Negative (Negative); Leukocyte Esterase,Urine TRACE (Negative); Nitrate,Urine Negative (Negative); Protein,Urine Negative (Negative); Specific Gravity, Urine 1.015 (1.005-1.030); Urobilinogen,Urine 0.2 EU/dl (0.2)
--- NOTE | 2022-02-15 14:28 | PC.NURSE ---
patient to radiology with electroplating technician by tono
--- NOTE | 2022-02-15 14:34 | PC.NURSE ---
patient back from radiology with clinical radiologist by tono
[2022-02-15 14:56] LABS: Bacteria,Urine Trace /lpf; Renal Epithelial Cells,Urine Occasional #/lpf (0); Squamous Epithelial Cell,Urine 20-50 #/hpf (0-5); WBC,Urine Occasional #/hpf (0-3)
--- NOTE | 2022-02-15 15:12 | PC.NURSE ---
ED MD on phone with [facility] who called regarding report
--- NOTE | 2022-02-15 15:37 | PC.NURSE ---
ED MD at for update on POC
--- NOTE | 2022-02-15 15:50 | PC.NURSE ---
Paged Dr. Mercado for ED MD
--- NOTE | 2022-02-15 15:51 | PC.NURSE ---
Dr. Mercado on phone with ED MD
[2022-02-15 15:54] LABS: Coronavirus 19, PCR Not Detected (NotDetected); Influenza A, PCR Not Detected (NotDetected); Influenza B, PCR Not Detected (NotDetected)
--- NOTE | 2022-02-15 15:56 | PC.NURSE ---
Dr Meredith speaking with Dr Cazares for admission.
--- NOTE | 2022-02-15 15:57 | XR_ITS ---
PROCEDURE INFORMATION: Exam: XR Chest Exam date and time: 02/15/2022 4:04 PM Age: 77 years old Clinical indication: Device placement; Ng tube; Additional info: Confirmation of ng tube TECHNIQUE: Imaging protocol: XR of the chest. Views: 1 view. Portable AP upright exam 4:05 p.m. COMPARISON: CR XR CHEST PORTABLE 02/08/2022 10:55 AM FINDINGS: Tubes, catheters and devices: An NG tube has been submitted, the distal tip projected over the stomach well below the diaphragm, and the side port located approximately two cm below the diaphragm, in satisfactory position. Lungs: Patchy interstitial prominence and hazy airspace opacities bilaterally, though aeration of both lungs appears improved compared with the previous chest x-ray from 02/08/2022, correlate for improving pneumonia or edema. Pleural spaces: Unremarkable. No significant pleural effusion. No pneumothorax. Heart/Mediastinum: Enlarged cardiac silhouette, unchanged. Vasculature: Calcified plaques in the aorta. Bones/joints: Osteopenia. Thoracolumbar scoliosis.There are spinal degenerative changes, with multilevel disc narrrowing and spondylosis. Old healed left humerus neck fracture deformity unchanged. Intraperitoneal space: Surgical clips in the right upper quadrant abdomen. IMPRESSION: 1. Nasogastric tube appears in satisfactory position, as above. 2. Persistent interstitial prominence and patchy airspace opacities in the lungs, but this has improved compared with 02/08/2022, correlate for decreasing edema or pneumonia. 3. Additional nonemergency and chronic findings as above.
--- NOTE | 2022-02-15 16:34 | HMH.PHAINT ---
MEDICATION RECONCILIATION COMPLETE USING LIST FROM RECENT HOSPITAL DISCHARGE (02/12/22).
--- NOTE | 2022-02-15 16:37 | HMH.PHAVTE ---
[facility] Pharmacy VTE Monitoring - Patient Demographics Admission date: 02/15/22 Report Date: 02/15/22 Time: 16:37 Allergies/Adverse Reactions: Patient Allergies atorvastatin Adverse Reaction (Mild, Verified 01/21/22 10:11) myalgias Height: 1.65 m Weight: 53.07 kg - VTE Risk Labs: VTE Related Lab Results Hgb 11.0 g/dL (12.2-16.2) L 02/15/22 13:56 Hct 33.5 % (37.0-47.0) L 02/15/22 13:56 Plt Count 594 K/mm3 (142-424) H D 02/15/22 13:56 BUN 24 mg/dl (7-17) H 02/15/22 13:56 Creatinine 1.30 mg/dl (0.52-1.04) H 02/15/22 13:56 Estimated Creat Clear 30 mL/min (50-200) 02/15/22 13:56 Was VTE Risk Assessment Performed: No Clinical Trial Participant: No - Prophylaxis VTE Prophylaxis Ordered?: Yes Types of VTE Prophylaxis: TEDS Knee High Location of Applied Device: Bilateral Lower Extremeties
--- NOTE | 2022-02-15 17:09 | PC.NURSE ---
report given Kirti DOWNS
--- NOTE | 2022-02-15 17:25 | PC.NURSE ---
Tech from 2nd floor down to get patient and take up by wheelchair.
[2022-02-15 18:31] LABS: Lactic Acid 0.9 mmol/L (0.7-2.1)
[2022-02-16] VITALS (10 sets, daily range): BP systolic 100–128; BP diastolic 57–66; PULSE 70–120; RESP 16–26; TEMP 36.4–36.9; O2SAT 95–100
[2022-02-16 06:04] LABS: Basophils # 0.1 K/mm3 (0-0.2); Basophils % 0.8 % (0.1-2.0); Eosinophils # 0.2 K/mm3 (0.0-0.4); Eosinophils % 3.3 % (0.1-12.0); Lymphocytes # 1.2 K/mm3 (0.7-4.5); Lymphocytes % 16.7 % (10-50); Mean Corpuscular Hemoglobin 29.4 pg (27.0-31.2); Mean Corpuscular Volume 91.8 fl (81-99); Mean Platelet Volume 8.4 fl (7.4-10.4); Monocytes # 0.5 K/mm3 (0.1-1.0); Monocytes % 6.5 % (1.7-9.3); Neutrophils # 5.2 K/mm3 (1.8-7.8); Neutrophils % 72.7 % (37.0-80.0); Platelet Count 464 K/mm3 (142-424); Red Cell Distribution Width 14.6 % (11.5-17.5); White Blood Count 7.1 K/mm3 (4.8-10.8)
[2022-02-16 06:05] LABS: Hematocrit 28.5 % (37.0-47.0); Hemoglobin 9.1 g/dL (12.2-16.2)
[2022-02-16 06:14] LABS: Chloride 97 mmol/L (98-107); Sodium 136 mmol/L (136-145)
[2022-02-16 06:15] LABS: Potassium 3.7 mmoL/L (3.5-5.1)
[2022-02-16 06:17] LABS: Blood Urea Nitrogen 24 mg/dl (7-17); Creatinine Clearance Estimated 44 mL/min (50-200); Estimated Glomerular Filt Rate 54 ml/min (>60); GFR (African American) 65 ML/MIN (>60)
[2022-02-16 06:18] LABS: Anion Gap 8.7 mEq/L (5-15); Calcium 9.4 mg/dl (8.4-10.2); Carbon Dioxide 34 mmol/L (22.0-30.0); Glucose 103 mg/dl (74-100)
--- NOTE | 2022-02-16 08:32 | HMH.HP ---
*Admission Date: 02/15/22 *Chief complaint: Nausea/vomiting *History of present illness: 77-year-old recently discharged from the hospital after complex laparoscopic surgery for lysis of adhesions for high-grade bowel obstruction. Surgical service was extremely concerned about possible reobstruction, but patient initially did well and was able to go home on soft mechanical diet. Her complication in the hospital included COPD exacerbation, fluid overload with CHF exacerbation and possible necrotizing pneumonia and she gone home on broad-spectrum antibiotics. Unfortunately about 24 hours ago she began to have nausea, abdominal pain and bloating and came back to the emergency department. CT scan showed evidence of structural bowel obstruction and she was admitted to hospital for further evaluation, NG tube placement and surgical consultation. [facility] History I have reviewed the patient's past medical history: Yes Medical History: Reports:: Arrhythmia, Chronic Obstructive Pulmonary Disease (COPD), Coronary Artery Disease, Gastroesophageal Reflux Disease(GERD), Hyperlipidemia, Hypertension, Palpitations Denies:: Cancer, Diabetes Mellitus Type 1, Diabetes Mellitus Type 2, Internal Pacemaker, MRSA, Seizures *Have you ever received a pneumonia vaccine?: Yes *Have you received a flu vaccine this season?: Yes Other Medical History: Reports: Cataracts, Sinus Problems, Other Laterality Cases: Left: Arthroscopy Shoulder, Other Other Surgeries: Yes: No Previous Surgery, Angioplasty, Cardiac Catheterization, Cholecystectomy, Colonoscopy, Coronary Stent, Dilation and Curettage, EGD, Hernia Repair, Hysterectomy-Total, Hysterectomy-Partial, Tubal Ligation, Other. No: Pacemaker Amputation: No Fractures: Yes (lt shoulder (NO SURGERY)) - *Social History Smoking Status: Former smoker Tobacco Type: cigarettes # Packs/Day (cigarettes): 1 #Yrs smoked (if former smoker): 50 Alcohol Intake: never Alcohol Intake Frequency:: a few times a month Substance Use Type: denies use *Occupational Status:: retired Housing: other Household Members: other *Travel in the last 8 weeks: None Family Hx:: Coronary Artery Disease, Diabetes, Heart Attack, Hyperlipidemia, Hypertension Review of Systems - Review of Systems Review of systems:: pertinent systems reviewed and negative unless documented below - *Neurologic Reports weakness (Generalized), Denies dizziness, Denies headache(s), Denies numbness Meds Home Medications Medication Instructions Recorded Confirmed Type Cholecalciferol (Vitd3)/Vit K2 [D3 1 tab PO DAILY 10/02/19 02/15/22 History + K2 Dots 1,000 Units Tab] Umeclidinium Brm/Vilanterol Tr 1 inh IH DAILY 04/01/20 02/15/22 History [Anoro Ellipta 62.5-25 Mcg INH] calcium carbonate 600 mg-vitamin 1 tab PO DAILY 10/22/21 02/15/22 History D3 20 mcg (800 unit) chewable tablet fluticasone propionate 50 1 spray INTRANASAL DAILY g 10/22/21 02/15/22 History mcg/actuation nasal spray,suspension metoprolol succinate 25 mg 25 mg PO DAILY tab 10/22/21 02/15/22 History tablet,extended release 24 hr nitroglycerin 0.4 mg sublingual 0.4 mg SUBLINGUAL Q5M PRN #20 tab 11/03/21 02/15/22 Rx tablet Aspirin [Adult Aspirin Regimen] 81 mg PO DAILY 01/30/22 02/15/22 History Simvastatin 20 mg PO DAILY 01/30/22 02/15/22 History Cefdinir [Omnicef 300mg Capsule] 300 mg PO BID 02/15/22 02/15/22 History Furosemide [Lasix 40mg tab] 40 mg PO BID 02/15/22 02/15/22 History Ipratropium/Albuterol Sulfate 1 puff IH QIDRT 02/15/22 02/15/22 History [Combivent Respimat Inh] Spironolactone [Aldactone 25mg 25 mg PO BID 02/15/22 02/15/22 History Tab] clindamycin HCL [Clindamycin HCl] 300 mg PO TID 02/15/22 02/15/22 History Allergies Allergy/AdvReac Type Severity Reaction Status Date / Time atorvastatin AdvReac Mild myalgias Verified 01/21/22 10:11 Exam Vital signs and Labs for Last 24 Hours: Temp Pulse Resp BP Pulse Ox 98.4 F 81 18
--- NOTE | 2022-02-16 10:49 | FL_ITS ---
FINAL REPORT CLINICAL HISTORY: . obstruction FINDINGS: A small bowel series was performed. A preliminary res counselor radiograph of the abdomen and pelvis reveals nasogastric tube with its tip in the body of the stomach. Postoperative changes are noted in the right abdomen. There is residual contrast in the urinary bladder. The oral contrast was then injected through the nasogastric tube into the stomach and sequential images were obtained. Subsequent images reveal mildly distended small bowel loops. The contrast is seen within the colon by the 3 hour radiograph. No definite transition point is identified. IMPRESSION: Contrast is seen within the colon by 3 hours post administration of the contrast. No convincing bowel obstruction is identified. Authenticated by Mino Bull III, MD on 02/16/2022 04:53:23 PM [facility]
--- NOTE | 2022-02-16 14:29 | PC.NURSE ---
Addendum entered by Lili Slater RN 02/16/22 18:43: PT AMBULATED IN THE GUILLAUME WITH WALKER THIS AFTERNOON. O2 SATURATION WAS 99% ON ROOM AIR AFTER AMBULATION. PT HAS BEEN USING THE INCENTIVE SPIROMETER. PT IS SITTING UP IN THE CHAIR WITH NG TUBE CONNECTED TO LOW WALL SUCTION AT THIS TIME. Original Note: PT IS RESTING IN BED WITH FAMILY AT BEDSIDE. ALERT AND ORIENTED X4. PT HAS BEEN DROWSY T/O THE SHIFT. NG TUBE DISCONNECTED TO SUCTION AT THIS TIME TO COMPLETE THE SMALL BOWEL FOLLOW THROUGH. PT HAS NOT HAD ANY COMPLAINTS OF N/V. ABDOMEN SOFT/TENDER WITH PALPATION. LUNG SOUNDS DIMINISHED. NO SWELLING NOTED TO BLE. PT HAS BEEN GETTING OOB WITH 1 ASSIST TO BSC. O2 SATURATION HAS MAINTAINED 92-95% ON 2 L NC. WILL CONTINUE TO MONITOR.
--- NOTE | 2022-02-16 15:45 | PC.NURSE ---
ROUNDED ON PATIENT. PROVIDED SWAB TO WET MOUTH. NO COMPLAINTS NOTED. WAITING ON SURGEON TO ROUND. DID RELAY THAT HE WAS AWARE SHE WAS HERE AND PLACING ORDERS, AWAITING ON RESULTS OF SMALL BOWEL FOLLOW THRU. NO CONCERNS WITH MEDICATIONS
--- NOTE | 2022-02-16 16:23 | HMH.GSCON ---
*Admission Date: 02/15/22 *Reason for consult:: Possible recurrent small bowel obstruction versus ileus *History of present illness: This is a 77-year-old female seen in consultation from the service of Dr. Martinez for evaluation regarding recurrent small bowel obstruction versus ileus. She is status post complex exploratory laparotomy with extensive lysis of adhesions on January 30. During her recent hospitalization she did have return of bowel function. Unfortunately, her recent hospitalization was complicated by volume overload, COPD exacerbation, atrial fibrillation and severe pneumonia. She was discharged on antibiotic therapy and close outpatient follow-up was scheduled. Per the patient and her daughter she had done very well until a day or so ago . She presented to the emergency department with increasing nausea/vomiting. A CT scan consistent with possible small bowel obstruction was noted. She has continued to pass flatus. She states that she passed flatus just a little while ago . With regard to abdominal pain, the patient states that she is not really hurting much . Review of Systems - Constitutional Denies fever(s) - Eyes Denies change in vision - ENT Denies pain with swallowing - *Cardiovascular Denies chest pain - *Respiratory Denies coughing up blood - *Gastrointestinal Reports nausea, Reports vomiting - *Neurologic Reports weakness (Generalized), Denies dizziness, Denies headache(s), Denies numbness [facility] History Medical History: Reports:: Arrhythmia, Chronic Obstructive Pulmonary Disease (COPD), Coronary Artery Disease, Gastroesophageal Reflux Disease(GERD), Hyperlipidemia, Hypertension, Palpitations Denies:: Cancer, Diabetes Mellitus Type 1, Diabetes Mellitus Type 2, Internal Pacemaker, MRSA, Seizures *Have you ever received a pneumonia vaccine?: Yes *Have you received a flu vaccine this season?: Yes Other Medical History: Reports: Cataracts, Sinus Problems, Other Laterality Cases: Left: Arthroscopy Shoulder, Other Other Surgeries: Yes: No Previous Surgery, Angioplasty, Cardiac Catheterization, Cholecystectomy, Colonoscopy, Coronary Stent, Dilation and Curettage, EGD, Hernia Repair, Hysterectomy-Total, Hysterectomy-Partial, Tubal Ligation, Other. No: Pacemaker Amputation: No Fractures: Yes (lt shoulder (NO SURGERY)) - *Social History Smoking Status: Former smoker Tobacco Type: cigarettes # Packs/Day (cigarettes): 1 #Yrs smoked (if former smoker): 50 Alcohol Intake: never Alcohol Intake Frequency:: a few times a month Substance Use Type: denies use *Occupational Status:: retired Housing: other Household Members: other *Travel in the last 8 weeks: None Family Hx:: Coronary Artery Disease, Diabetes, Heart Attack, Hyperlipidemia, Hypertension Meds Home Medications Medication Instructions Recorded Confirmed Type Cholecalciferol (Vitd3)/Vit K2 [D3 1 tab PO DAILY 10/02/19 02/15/22 History + K2 Dots 1,000 Units Tab] Umeclidinium Brm/Vilanterol Tr 1 inh IH DAILY 04/01/20 02/15/22 History [Anoro Ellipta 62.5-25 Mcg INH] calcium carbonate 600 mg-vitamin 1 tab PO DAILY 10/22/21 02/15/22 History D3 20 mcg (800 unit) chewable tablet fluticasone propionate 50 1 spray INTRANASAL DAILY g 10/22/21 02/15/22 History mcg/actuation nasal spray,suspension metoprolol succinate 25 mg 25 mg PO DAILY tab 10/22/21 02/15/22 History tablet,extended release 24 hr nitroglycerin 0.4 mg sublingual 0.4 mg SUBLINGUAL Q5M PRN #20 tab 11/03/21 02/15/22 Rx tablet Aspirin [Adult Aspirin Regimen] 81 mg PO DAILY 01/30/22 02/15/22 History Simvastatin 20 mg PO DAILY 01/30/22 02/15/22 History Cefdinir [Omnicef 300mg Capsule] 300 mg PO BID 02/15/22 02/15/22 History Furosemide [Lasix 40mg tab] 40 mg PO BID 02/15/22 02/15/22 History Ipratropium/Albuterol Sulfate 1 puff IH QIDRT 02/15/22 02/15/22 History [Combivent Respimat Inh] Spironolactone [Aldactone 25mg 25 mg PO BID 02/15/22 02/15/22
[2022-02-17] VITALS (7 sets, daily range): BP systolic 119–127; BP diastolic 56–70; PULSE 80–119; RESP 16–20; TEMP 36.6–36.9; O2SAT 94–100; BMI 21.4; BMI 21.3
--- NOTE | 2022-02-17 00:30 | PC.NURSE ---
dr mcduffie called regarding pt hr elevated from 70-80's to 110 to 120 at times, pt with history of afib w/rvr last admissions, and pt readmitted for sbo s/p bowel resection, pt npo and takes metoprolol at home, note new orders to give iv metoprolol 2.5mg now, may repeat x1, and bolus of 250ml of NS repeated and verified. will continue to monitor
--- NOTE | 2022-02-17 05:30 | PC.NURSE ---
pt to xray for abdominal scans as ordered
--- NOTE | 2022-02-17 06:00 | XR_ITS ---
PROCEDURE INFORMATION: Exam: XR Complete Acute Abdomen Series Including Chest Exam date and time: 02/17/2022 5:38 AM Age: 77 years old Clinical indication: Condition or disease; Intestinal condition; Other: Partial sbo vs. Ileus TECHNIQUE: Imaging protocol: XR complete acute abdomen series, including 2 or more views of the abdomen and a single view chest. COMPARISON: CR XR CHEST PORTABLE 02/15/2022 4:04 PM FINDINGS: Tubes, catheters and devices: Nasogastric tube is in good position. Lungs: The lungs are hyperinflated. Diffuse chronic interstitial changes are present bilaterally. Patchy airspace opacities are seen in the upper lobes bilaterally. Pleural spaces: Normal. No pleural effusions. No pneumothorax. Heart/Mediastinum: Normal. No cardiomegaly. Gastrointestinal tract: Normal. No bowel dilation. Intraperitoneal space: Normal. No free air. Bones/joints: Normal. No acute fracture. Soft tissues: Normal. IMPRESSION: Stable upper lobe predominant patchy airspace disease superimposed on underlying COPD.
--- NOTE | 2022-02-17 06:00 | PC.NURSE ---
pt back from xray in satisfactory condition, ng to lws resumed, pt assisted to bsc
--- NOTE | 2022-02-17 06:56 | HMH.GSPN ---
Subjective Patient reports: feels better, flatus, bowel movement Narrative: The patient has requested removal of her nasogastric tube. She states that she might end up pulling it . Progress Note: A&P (1) Small bowel obstruction Status: Acute Assessment and plan: Contrast within colon on yesterday small bowel follow-through noted. No obvious sign of obstruction noted on small bowel follow-through. Morning films reveal contrast within the colon. The patient has requested removal of her nasogastric tube. She understands the risks and benefits of removal and the possibility of replacement. DC NG Clear liquids cautiously (no tray and no carbonation) (2) COPD (chronic obstructive pulmonary disease) Status: Chronic Exam Vital signs and Labs for Last 24 Hours: Temp Pulse Resp BP Pulse Ox 98.3 F 92 H 18 121/64 97 02/17/22 04:00 02/17/22 05:59 02/17/22 04:00 02/17/22 04:00 02/17/22 05:59 I & O for Last 24 hours: Intake & Output 02/14/22 02/15/22 02/16/22 02/17/22 11:59 11:59 11:59 11:59 Intake Total 1312 / 1312 Output Total 401 / 401 201 / 201 Balance -401 / -401 1111 / 1111 Weight 131 lb 6 oz 128 lb 4.8 oz - Constitutional no acute distress - *Routine Respiratory Exam Absent: respiratory distress - *Routine Cardiovascular Exam Absent: tachycardia - *Routine Abdominal Exam Present: soft
--- NOTE | 2022-02-17 08:17 | HMH.ACPN2 ---
Internal Medicine - PN: Subj *Date: 02/17/22 *Time: 08:17 Interval history: Patient feels much better overnight. Has been passing flatus quite liberally. Surgery note reviewed and appreciated. Exam Vital signs and Labs for Last 24 Hours: Temp Pulse Resp BP Pulse Ox 98.3 F 92 H 18 121/64 97 02/17/22 04:00 02/17/22 05:59 02/17/22 04:00 02/17/22 04:00 02/17/22 05:59 I & O for Last 24 hours: Intake & Output 02/14/22 02/15/22 02/16/22 02/17/22 11:59 11:59 11:59 11:59 Intake Total 1312 / 1312 Output Total 401 / 401 201 / 201 Balance -401 / -401 1111 / 1111 Weight 131 lb 6 oz 127 lb 13.89 oz Narrative: Good air movement. Rhonchi in both bases. Able to pull almost 750 mL on her incentive spirometer. Heart rate regular. No edema or clubbing. NG tube in good position in the right nostril Assessment and Plan (1) Small bowel obstruction Status: Acute Category: Medical Code(s): K56.609 - Unspecified intestinal obstruction, unspecified as to partial versus complete obstruction (2) COPD (chronic obstructive pulmonary disease) Status: Chronic Qualifiers: Category: Medical Code(s): J44.9 - Chronic obstructive pulmonary disease, unspecified - Assessment and plan all Dx Assessment and Plan for all problems:: Check labs this morning. Surgery is recommended pulling the NG tube which I agree with. X-rays look better. Possible problem from gaseous distention from rapid advance of diet when she was home. I will ask pulmonary to come by and follow her lung status given her significant COPD.
[2022-02-17 08:43] LABS: Basophils # 0.1 K/mm3 (0-0.2); Basophils % 1.2 % (0.1-2.0); Eosinophils # 0.1 K/mm3 (0.0-0.4); Eosinophils % 1.3 % (0.1-12.0); Hematocrit 29.5 % (37.0-47.0); Hemoglobin 9.5 g/dL (12.2-16.2); Lymphocytes # 0.4 K/mm3 (0.7-4.5); Lymphocytes % 4.8 % (10-50); Mean Corpuscular HGB Conc 32.3 g/dL (31.8-35.4); Mean Corpuscular Hemoglobin 29.8 pg (27.0-31.2); Mean Corpuscular Volume 92.1 fl (81-99); Mean Platelet Volume 9.6 fl (7.4-10.4); Monocytes # 0.4 K/mm3 (0.1-1.0); Monocytes % 4.9 % (1.7-9.3); Neutrophils # 7.3 K/mm3 (1.8-7.8); Neutrophils % 87.8 % (37.0-80.0); Platelet Count 479 K/mm3 (142-424); Red Cell Distribution Width 14.5 % (11.5-17.5); White Blood Count 8.3 K/mm3 (4.8-10.8)
[2022-02-17 08:50] LABS: Chloride 106 mmol/L (98-107); Sodium 142 mmol/L (136-145)
[2022-02-17 08:51] LABS: Potassium 3.5 mmoL/L (3.5-5.1)
[2022-02-17 08:53] LABS: Blood Urea Nitrogen 25 mg/dl (7-17); Creatinine Clearance Estimated 27 mL/min (50-200); Estimated Glomerular Filt Rate 31 ml/min (>60); GFR (African American) 38 ML/MIN (>60); MANUAL DIFFERENTIAL MANUAL DIFFERENTIAL (MANUAL DIFF)
[2022-02-17 08:54] LABS: Anion Gap 9.5 mEq/L (5-15); Calcium 8.9 mg/dl (8.4-10.2); Carbon Dioxide 30 mmol/L (22.0-30.0); Glucose 128 mg/dl (74-100)
--- NOTE | 2022-02-17 09:18 | HMH.PULMCON ---
*Admission Date: 02/15/22 *Reason for consult:: Chronic hypoxic respiratory failure *History of present illness: is a 77-year-old female carries a diagnosis COPD on Anoro inhaler recently admitted to the hospital for small bowel obstruction eventually ended up having necrotizing pneumonia with worsening respiratory status and levofloxacin escalated to Zosyn and discharged home on cefdinir and clindamycin presented to the hospital again complaining of nausea and vomiting. Patient respiratory status continued to improve. She denies any respiratory distress. [facility] History Medical History: Reports:: Arrhythmia, Chronic Obstructive Pulmonary Disease (COPD), Coronary Artery Disease, Gastroesophageal Reflux Disease(GERD), Hyperlipidemia, Hypertension, Palpitations Denies:: Cancer, Diabetes Mellitus Type 1, Diabetes Mellitus Type 2, Internal Pacemaker, MRSA, Seizures *Have you ever received a pneumonia vaccine?: Yes *Have you received a flu vaccine this season?: Yes Other Medical History: Reports: Cataracts, Sinus Problems, Other Laterality Cases: Left: Arthroscopy Shoulder, Other Other Surgeries: Yes: No Previous Surgery, Angioplasty, Cardiac Catheterization, Cholecystectomy, Colonoscopy, Coronary Stent, Dilation and Curettage, EGD, Hernia Repair, Hysterectomy-Total, Hysterectomy-Partial, Tubal Ligation, Other. No: Pacemaker Amputation: No Fractures: Yes (lt shoulder (NO SURGERY)) - *Social History Smoking Status: Former smoker Tobacco Type: cigarettes # Packs/Day (cigarettes): 1 #Yrs smoked (if former smoker): 50 Alcohol Intake: never Alcohol Intake Frequency:: a few times a month Substance Use Type: denies use *Occupational Status:: retired Housing: other Household Members: other *Travel in the last 8 weeks: None Family Hx:: Coronary Artery Disease, Diabetes, Heart Attack, Hyperlipidemia, Hypertension ROS - Cons Reports fatigue, Denies fever(s) - Eyes Reports blurry vision - ENT Denies ear discharge - Card Reports shortness of breath, Reports shortness of breath with activity - Resp Respiratory: Denies change in phlegm color, Reports cough, Reports non-productive cough, Reports dyspnea, Reports dyspnea on exertion, Denies excessive phlegm production, Denies coughing up blood, Denies pain on inspiration, Denies cough with sputum production - GI Gastrointestingal: Reports: dyspepsia, nausea - [place] Musculoskeletal: Reports back pain - Psych Denies thoughts of hurting/killing others, Denies thoughts of hurting/killing yourself Meds Home Medications Medication Instructions Recorded Confirmed Type Cholecalciferol (Vitd3)/Vit K2 [D3 1 tab PO DAILY 10/02/19 02/15/22 History + K2 Dots 1,000 Units Tab] Umeclidinium Brm/Vilanterol Tr 1 inh IH DAILY 04/01/20 02/15/22 History [Anoro Ellipta 62.5-25 Mcg INH] calcium carbonate 600 mg-vitamin 1 tab PO DAILY 10/22/21 02/15/22 History D3 20 mcg (800 unit) chewable tablet fluticasone propionate 50 1 spray INTRANASAL DAILY g 10/22/21 02/15/22 History mcg/actuation nasal spray,suspension metoprolol succinate 25 mg 25 mg PO DAILY tab 10/22/21 02/15/22 History tablet,extended release 24 hr nitroglycerin 0.4 mg sublingual 0.4 mg SUBLINGUAL Q5M PRN #20 tab 11/03/21 02/15/22 Rx tablet Aspirin [Adult Aspirin Regimen] 81 mg PO DAILY 01/30/22 02/15/22 History Simvastatin 20 mg PO DAILY 01/30/22 02/15/22 History Cefdinir [Omnicef 300mg Capsule] 300 mg PO BID 02/15/22 02/15/22 History Furosemide [Lasix 40mg tab] 40 mg PO BID 02/15/22 02/15/22 History Ipratropium/Albuterol Sulfate 1 puff IH QIDRT 02/15/22 02/15/22 History [Combivent Respimat Inh] Spironolactone [Aldactone 25mg 25 mg PO BID 02/15/22 02/15/22 History Tab] clindamycin HCL [Clindamycin HCl] 300 mg PO TID 02/15/22 02/15/22 History Allergies Allergy/AdvReac Type Severity Reaction Status Date / Time atorvastatin AdvReac Mild myalgias Verified 01/21/22 10:11 Ex
[2022-02-17 13:08] LABS: Eosinophils % 1 % (0-3); Lymphocytes % 9 % (10-50); Monocytes % 2 % (2-9); Neutrophils % 87 % (42-76); Total Cells Counted 100
[2022-02-17 13:09] LABS: Platelet Estimate Moderate Increase; RBC Morphology Normal
--- NOTE | 2022-02-17 13:12 | DIET.NUTRFU ---
Able to have minimal amounts of clear liquids today, excepted a clear boost to provide additional calories and protein. Patient is at high risk for malnutrition due to length of hospitalization and lack of intake.
--- NOTE | 2022-02-17 15:43 | PC.NURSE ---
PT IS RESTING IN BED. NO COMPLAINTS OF DISCOMFORT. ALERT AND ORIENTED X4. PT HAS AMBULATED IN THE GUILLAUME AND TO THE BATHROOM SEVERAL TIMES THIS SHIFT. TOLERATED SITTING UP IN THE CHAIR. PT HAS TOLERATED CLEAR LIQUIDS. ABDOMEN SOFT/NON TENDER WITH HYPOACTIVE BOWEL SOUNDS. MIDLINE INCISION NOTED TO ABDOMEN WITH STERI STRIPS INTACT. LUNG SOUNDS DIMINISHED. O2 SATURATION HAS MAINTAINED 93-95% ON ROOM AIR. WILL CONTINUE TO MONITOR.
[2022-02-18] VITALS: BP 122/71; PULSE 80; PULSE 87; RESP 16; TEMP 36.8; O2SAT 95
[2022-02-18 04:00] VITALS: BP 124/76; PULSE 78; PULSE 90; RESP 14; TEMP 36.9; O2SAT 94
[2022-02-18 05:00] VITALS: BMI 21.4
--- NOTE | 2022-02-18 06:00 | XR_ITS ---
PROCEDURE INFORMATION: Exam: XR Complete Acute Abdomen Series Including Chest Exam date and time: 02/18/2022 5:32 AM Age: 77 years old Clinical indication: Condition or disease; Intestinal condition; Other: Partial sbo vs. Ileus; Additional info: F/u partial sbo vs. Ileus TECHNIQUE: Imaging protocol: XR complete acute abdomen series, including 2 or more views of the abdomen and a single view chest. COMPARISON: CR XR ACUTE ABDOMEN SERIES 02/17/2022 5:38 AM FINDINGS: Lungs: Similar patchy airspace opacities in the right upper lobe. Pleural spaces: Normal. No pleural effusions. No pneumothorax. Heart/Mediastinum: Normal. No cardiomegaly. Gastrointestinal tract: Similar distention of small-bowel loops in central abdomen. Contrast is seen within the colon. Intraperitoneal space: Normal. No free air. Organs: Cholecystectomy clips. Bones/joints: Osteopenia. Soft tissues: Normal. IMPRESSION: 1. Similar distention of small-bowel loops in the central abdomen, which may reflect ileus versus partial small-bowel obstruction. 2. Similar patchy airspace opacities in the right upper lobe.
--- NOTE | 2022-02-18 06:42 | P.PN_ITS ---
Subjective Patient reports: feels better, flatus, bowel movement Narrative: Nasogastric tube removed yesterday morning. The patient states that she has had no nausea or emesis. Progress Note: A&P (1) Small bowel obstruction Status: Acute Assessment and plan: Recent laparotomy with extensive lysis of adhesion. Rehospitalization for possible recurrent obstruction versus intermittent ileus. Small bowel follow- through reveals no changes consistent with obstruction. The patient continues to pass flatus and has had bowel movements. Full liquid diet ordered (2) COPD (chronic obstructive pulmonary disease) Status: Chronic Exam Vital signs and Labs for Last 24 Hours: Temp Pulse Resp BP Pulse Ox 98.4 F 90 14 124/76 94 L 02/18/22 04:00 02/18/22 04:00 02/18/22 04:00 02/18/22 04:00 02/18/22 04:00 Laboratory Results - last 24 hr 02/17/22 08:35: WBC 8.3, RBC 3.20 L, Hgb 9.5 L, Hct 29.5 L, MCV 92.1, MCH 29.8, MCHC 32.3, RDW 14.5, Plt Count 479 H, MPV 9.6, Neut % (Auto) 87.8 H, Lymph % (Auto) 4.8 L, [place] % (Auto) 4.9, Eos % (Auto) 1.3, Baso % (Auto) 1.2, Neut # (Auto) 7.3, Lymph # (Auto) 0.4 L, [place] # (Auto) 0.4, Eos # (Auto) 0.1, Baso # (Auto) 0.1, Total Counted 100, Neutrophils % (Manual) 87 H, Band Neutrophils % 1.0, Lymphocytes % (Manual) 9 L, Monocytes % (Manual) 2, Eosinophils % (Manual) 1, Platelet Estimate Moderate increase, RBC Morphology Normal 02/17/22 08:35: Sodium 142, Potassium 3.5, Chloride 106, Carbon Dioxide 30, Anion Gap 9.5, BUN 25 H, Creatinine 1.60 H D, Estimated Creat Clear 27, Estimated GFR 31 L, Est GFR ( Amer) 38 L D, Glucose 128 H, Calcium 8.9 I & O for Last 24 hours: Intake & Output 02/15/22 02/16/22 02/17/22 02/18/22 11:59 11:59 11:59 11:59 Intake Total 1312 / 1312 338 / 338 Output Total 401 / 401 201 / 201 0 / 0 Balance -401 / -401 1111 / 1111 338 / 338 Weight 131 lb 6 oz 127 lb 13.89 oz 128 lb 11.2 oz - Constitutional no acute distress - *Routine Respiratory Exam Absent: respiratory distress - *Routine Cardiovascular Exam Absent: tachycardia - *Routine Abdominal Exam Present: soft
[2022-02-18 06:57] LABS: Basophils # 0.1 K/mm3 (0-0.2); Basophils % 1.3 % (0.1-2.0); Eosinophils # 0.2 K/mm3 (0.0-0.4); Eosinophils % 4.3 % (0.1-12.0); Hematocrit 27.5 % (37.0-47.0); Hemoglobin 8.7 g/dL (12.2-16.2); Lymphocytes # 0.7 K/mm3 (0.7-4.5); Lymphocytes % 13.4 % (10-50); Mean Corpuscular HGB Conc 31.6 g/dL (31.8-35.4); Mean Corpuscular Hemoglobin 29.2 pg (27.0-31.2); Mean Corpuscular Volume 92.6 fl (81-99); Mean Platelet Volume 10.4 fl (7.4-10.4); Monocytes # 0.3 K/mm3 (0.1-1.0); Monocytes % 5.7 % (1.7-9.3); Neutrophils # 4.1 K/mm3 (1.8-7.8); Neutrophils % 75.3 % (37.0-80.0); Platelet Count 359 K/mm3 (142-424); Red Blood Count 2.97 M/mm3 (4.20-5.40); Red Cell Distribution Width 14.8 % (11.5-17.5); White Blood Count 5.4 K/mm3 (4.8-10.8)
[2022-02-18 07:04] LABS: Chloride 106 mmol/L (98-107); Potassium 3.1 mmoL/L (3.5-5.1); Sodium 139 mmol/L (136-145)
[2022-02-18 07:07] LABS: Anion Gap 8.1 mEq/L (5-15); Blood Urea Nitrogen 24 mg/dl (7-17); Carbon Dioxide 28 mmol/L (22.0-30.0); Creatinine Clearance Estimated 26 mL/min (50-200); Estimated Glomerular Filt Rate 29 ml/min (>60); GFR (African American) 35 ML/MIN (>60)
[2022-02-18 07:08] LABS: Calcium 7.9 mg/dl (8.4-10.2); Glucose 97 mg/dl (74-100)
[2022-02-18 08:00] VITALS: BP 123/62; PULSE 88; RESP 24; TEMP 36.8; O2SAT 100
--- NOTE | 2022-02-18 08:39 | HMH.DCSUM ---
General - General Admission date:: 02/15/22 Discharge date: 02/18/22 HPI HPI: 77-year-old recently discharged from the hospital after complex laparoscopic surgery for lysis of adhesions for high-grade bowel obstruction. Surgical service was extremely concerned about possible reobstruction, but patient initially did well and was able to go home on soft mechanical diet. Her complication in the hospital included COPD exacerbation, fluid overload with CHF exacerbation and possible necrotizing pneumonia and she gone home on broad-spectrum antibiotics. Unfortunately about 24 hours ago she began to have nausea, abdominal pain and bloating and came back to the emergency department. CT scan showed evidence of structural bowel obstruction and she was admitted to hospital for further evaluation, NG tube placement and surgical consultation. Hospital Course Hospital Course: Patient was admitted. Initially CT scan showed some evidence of mechanical obstruction however this cleared very rapidly and follow-up x-rays showed no bowel dilatation. Patient's NG tube was able to remove the next day. On further discussion with her apparently she did not quite a lot of peppers and onions perhaps it caused some gas and given her some distention which caused the issues on CT scan. She improved very nicely. Pulmonary was consulted given her severe COPD and history of pneumonia and his recommendations are appreciated. Patient's condition improved and this morning she is doing great. Back to her normal ADLs, on room air, doing well with breathing. She will be discharged home to continue her regular medications. Objective Vital signs: Temp Pulse Resp BP Pulse Ox 98.4 F 90 14 124/76 94 L 02/18/22 04:00 02/18/22 04:00 02/18/22 04:00 02/18/22 04:00 02/18/22 04:00 no acute distress - *Routine HEENT Exam Head: Present: normocephalic Eye: Present: EOMI, PERRL ENT: Present: mucous membranes moist - *Routine Neck Exam Present: supple - *Routine Respiratory Exam Present: CTA bilaterally - *Routine Cardiovascular Exam Present: RRR - *Routine Abdominal Exam Present: soft, normoactive bowel sounds. Absent: tenderness Comments: Minimal expected tenderness around surgical scars - *Routine Extremities Exam Absent: cyanosis, clubbing, edema - *Routine Skin Exam Present: warm. Absent: rash - Detailed Eye Exam Eyelids: Bilateral normal inspection Results Labs on day of discharge: Labs from last 24 hours 04/05/0602/18/22 02/17/22 06:45 06:45 08:35 WBC 5.4 D RBC 2.97 L Hgb 8.7 L Hct 27.5 L MCV 92.6 MCH 29.2 MCHC 31.6 L RDW 14.8 Plt Count 359 D MPV 10.4 Neut % (Auto) 75.3 Lymph % (Auto) 13.4 [place] % (Auto) 5.7 Eos % (Auto) 4.3 Baso % (Auto) 1.3 Neut # (Auto) 4.1 Lymph # (Auto) 0.7 [place] # (Auto) 0.3 Eos # (Auto) 0.2 Baso # (Auto) 0.1 Total Counted Neutrophils % (Manual) Band Neutrophils % Lymphocytes % (Manual) Monocytes % (Manual) Eosinophils % (Manual) Platelet Estimate RBC Morphology Sodium 139 142 Potassium 3.1 L 3.5 Chloride 106 106 Carbon Dioxide 28 30 Anion Gap 8.1 9.5 BUN 24 H 25 H Creatinine 1.70 H 1.60 H D Estimated Creat Clear 26 27 Estimated GFR 29 L 31 L Est GFR ( Amer) 35 L 38 L D Glucose 97 D 128 H Calcium 7.9 L 8.9 02/17/22 08:35 WBC 8.3 RBC 3.20 L Hgb 9.5 L Hct 29.5 L MCV 92.1 MCH 29.8 MCHC 32.3 RDW 14.5 Plt Count 479 H MPV 9.6 Neut % (Auto) 87.8 H Lymph % (Auto) 4.8 L [place] % (Auto) 4.9 Eos % (Auto) 1.3 Baso % (Auto) 1.2 Neut # (Auto) 7.3 Lymph # (Auto) 0.4 L [place] # (Auto) 0.4 Eos # (Auto) 0.1 Baso # (Auto) 0.1 Total Counted 100 Neutrophils % (Manual) 87 H Band Neutrophils % 1.0 Lymphocytes % (Manual) 9 L Monocytes % (Manual) 2 Eosinophils % (Manual) 1 Platelet Estimate Moderate increase
--- NOTE | 2022-02-18 09:00 | SW/DCPLANNER ---
Addendum entered by Mary Ann Arthur 02/18/22 09:21: CORRECTION: patient is established with [facility]. Updated information has been faxed to [facility]. Original Note: The plan for this patient is to discharge home today. I will fax updated patient information to [facility] to resume home health services. Patient has no further needs at this time.
--- NOTE | 2022-02-18 11:27 | P.PN_ITS ---
Internal Medicine - PN: Subj *Date: 02/18/22 *Time: 11:28 Interval history: No acute respiratory events overnight. Patient continued to remain on room air. Exam - Constitutional Constitutional:: Present: no acute distress, comfortable - HENMT Exam HENMT: Present: normocephalic, atraumatic - Eye Exam Eyes:: Present: normal appearance both eyes and related structures - Neck Exam Neck:: Present: normal carotid upstroke - Respiratory Exam Respiratory:: Present: able to speak in complete sentences, no respiratory distress. Absent: crackles, wheezing - Cardiovascular Exam Cardiac:: Present: S1, S2 - GI Exam GI:: Present: soft - Skin Exam Skin: Present: warm, no rash - Neurological Exam Neurological: Present: alert, normal cognition - Extremities Exam Extremities: Present: no cyanosis, no edema Assessment and Plan (1) Small bowel obstruction Status: Acute Category: Medical Code(s): K56.609 - Unspecified intestinal obstruction, unspecified as to partial versus complete obstruction (2) COPD (chronic obstructive pulmonary disease) Status: Chronic Qualifiers: Category: Medical Code(s): J44.9 - Chronic obstructive pulmonary disease, unspecified (3) Chronic diastolic heart failure Status: Acute Category: Medical Code(s): I50.32 - Chronic diastolic (congestive) heart failure - Assessment and plan all Dx Assessment and Plan for all problems:: #COPD: #History of necrotizing pneumonia: is a 77-year-old female carries a diagnosis COPD on Anoro inhaler recently admitted to the hospital for small bowel obstruction eventually ended up having necrotizing pneumonia with worsening respiratory status and her levofloxacin was escalated to Zosyn and discharged home on cefdinir and clindamycin presented to the hospital again complaining of nausea and vomiting. Patient admits continued improvement in her respiratory status. She denies any respiratory distress. Patient respiratory status remained at baseline. Her chest x-ray continued to show improvement. She is saturating 99% on 2 L, weaned to room air Patient continued to remain on room air in the last 24 hours with no worsening r espiratory distress. Overall patient COPD and recent pneumonia continue to improve and her respiratory status is at her baseline. Sputum culture from her recent admission eventually grew stenotrophomonas which is sensitive to levofloxacin. Continue Cefdinir and clindamycin as previously planned to complete a 14-day course. Plan: -Recommend home inhaler therapy which include Anoro along with DuoNebs only on a as needed basis. -Continue Cefdinir and clindamycin to complete a 14-day course starting 02/09/2022 #Thank you for involving pulmonary in this patient care. We will continue to follow. We will follow the patient in the pulmonary clinic as previously scheduled.
--- NOTE | 2022-02-19 15:01 | CARE MANAGER ---
Attempted to contact patient related to hospital discharge follow up. No VM option. HIMANSHU Sauceda
== END 2022-02-18 09:40 | disposition home or self-care (01) | DRG 389 ==
LOC: ER 13:40 → 2ND 16:01
PROVIDERS: Admitting Provider Family Medicine; Emergency Provider Emergency Medicine; PCP Internal Medicine Adolescent Medicine; Visit Provider Internal Medicine Adolescent Medicine
DX: K56.609 Unspecified intestinal obstruction, unspecified as to partial versus complete obstruction (principal); I50.32 Chronic diastolic (congestive) heart failure; J43.9 Emphysema, unspecified; Z87.891 Personal history of nicotine dependence; E78.5 Hyperlipidemia, unspecified; I25.10 Atherosclerotic heart disease of native coronary artery without angina pectoris; Z95.5 Presence of coronary angioplasty implant and graft; I11.0 Hypertensive heart disease with heart failure
CPT/HCPCS: 36415; 71045; 74021; 74177; 74250; 80048; 80053; 81001; 83605; 83690; 85007; 85025; 93005; 94640; 96365; 96375; 99285; C9803; J1956; J2405; J2543; Q9967; U0003; U0005

== ENCOUNTER → 2022-04-10 07:02 | Outpatient (CLI) | payer MEDICARE, BC, SELFPAY ==
--- NOTE | 2022-04-10 07:03 | NM_ITS ---
APPROVED REPORT Exam: Nuclear Stress Test Indication: chest pain..short of breath Patient Location: Outpatient Stress Tech: Martina Blake [place] Tech:CHANDRAKANT Brown RT(R)(N) Ht: 5 ft 5 in Wt: 125 lbs Bra Size: 34b HR: 74 bpm BP: 154/64 mmHg BSA: 1.62 m2 TID: 0.99 BMI: 20.7 History: chest pain..short of breath Procedure: Patient received a 0.4 mg of intravenous Lexiscan, resting heart rate 74 bpm, resting blood pressure 154/64 mmHg, with Lexiscan maximum heart rate achived was 115 bpm which is Less than 85 % of the maximum predicted heart rate and blood pressure was 154/64 mmHg. With Lexiscan, patient denied any complaint of chest pain. The patient was unable to lay on her belly. Electrocardiogram Resting electrocardiogram shows sinus rhythm, with Lexiscan there is less than 1.[address] segment depression noted from the baseline EKG. The EKG portion of the Lexiscan is nondiagnostic. Cardiac Stress and Resting SPECT Images: Cardiac Stress and Resting SPECT images were obtained using technetium 99m Myoview 30.2 mCi stress and 10.98 mCi at rest. Gated SPECT for analysis of segmental wall motion and calculation of the ejection fraction also done. Cardiac stress and resting SPECT images show mild decrease restrictively inferior wall which improves on the resting images suggestive of reversible ischemia, computer derived ejection fraction is 59% with no regional wall motion abnormality, right ventricle is normal size and contractility. Conclusion: 1. The EKG portion of the Lexiscan is nondiagnostic. 2. Scintigraphic evidence of mild reversible ischemia involving the inferior wall, compared to ejection fraction 59% with no regional wall motion abnormality, right ventricle is normal size and contractility. 3. Abnormal Lexiscan Myoview study. Electronically signed by : Arley Mann MD 04/10/2022 14:15:47
--- NOTE | 2022-04-10 07:03 | CA_ITS ---
APPROVED REPORT Exam: Pharmacologic Technologist: Martina Diaz, Ht: 5 ft 5 in Wt: 125 lbs BSA: 1.62 m2 HR: 82 bpm BP: 154/64 mmHg Medical History Medications: Aspirin,,,,, Vitamin D3,,,,, Metoprolol Succinate,,,,, Duoneb,,,,, Nitroglycerin,,,,, SpirOnolactone,,,,, Flovent,,,,, Simvatatin,,,,, Stress Test Details Test: LEXISCAN HR Resting HR: 74 bpm Max Heart Rate (APMHR): 143.884275 bpm Max HR Achieved: 115 bpm Target HR (85% APMHR): 121.067462 bpm % of APMHR: 80.42 Recovery HR: 85 bpm BP Resting BP: 154/64 mmHg Max BP: 154/64 mmHg Recovery BP: 128.0/74.0 mmHg ECG Clinical Exercise duration: 04:00 min Highest Stage Achieved: Stress ECG Conclusion Symptoms: SOB w/ Lexiscan. No chest pain Arrhythmias/Ectopy: PVCs noted. PACs noted ST-T Changes: <1.5mm ST Segment changes Test Summary RECOVERY 02:34 . . 88 . 128/ 74 . . REST 07:13 . . 74 . 154/ 64 . . Stage 1 01:00 . . 101 . . . . Stage 2 01:00 . . 106 . 133/ 78 . . Stage 3 01:00 . . 103 . 140/ 70 . . Stage 4 01:00 . . 101 . 120/ 69 . Stop exercise at 04:00 RECOVERY 01:00 . . 96 . . . . RECOVERY 02:00 . . 85 . 131/ 70 . . RECOVERY 02:34 . . 88 . 128/ 74 . . Electronically signed by : Arley Mann MD 04/10/2022 12:55:23
== END ==
PROVIDERS: PCP Internal Medicine Adolescent Medicine; Visit Provider Nurse Practitioner Family
DX: E78.5 Hyperlipidemia, unspecified (principal); G47.33 Obstructive sleep apnea (adult) (pediatric); I10 Essential (primary) hypertension; I25.10 Atherosclerotic heart disease of native coronary artery without angina pectoris; I27.20 Pulmonary hypertension, unspecified; J44.9 Chronic obstructive pulmonary disease, unspecified; R06.02 Shortness of breath; R07.9 Chest pain, unspecified; Z87.891 Personal history of nicotine dependence; Z95.5 Presence of coronary angioplasty implant and graft
CPT/HCPCS: 78452; 93017; A9502; J2785

== ENCOUNTER → 2022-04-28 11:56 | Outpatient (CLI) | payer MEDICARE, SELFPAY ==
[2022-04-28 12:27] LABS: Basophils # 0.1 K/mm3 (0-0.2); Basophils % 1.4 % (0.1-2.0); Eosinophils # 0.1 K/mm3 (0.0-0.4); Eosinophils % 2.1 % (0.1-12.0); Hematocrit 34.9 % (37.0-47.0); Hemoglobin 11.5 g/dL (12.2-16.2); Lymphocytes # 1.9 K/mm3 (0.7-4.5); Lymphocytes % 27.2 % (10-50); Mean Corpuscular HGB Conc 32.9 g/dL (31.8-35.4); Mean Corpuscular Hemoglobin 29.2 pg (27.0-31.2); Mean Corpuscular Volume 88.9 fl (81-99); Mean Platelet Volume 8.8 fl (7.4-10.4); Monocytes # 0.3 K/mm3 (0.1-1.0); Monocytes % 4.5 % (1.7-9.3); Neutrophils # 4.5 K/mm3 (1.8-7.8); Neutrophils % 64.9 % (37.0-80.0); Platelet Count 256 K/mm3 (142-424); Red Blood Count 3.92 M/mm3 (4.20-5.40); Red Cell Distribution Width 14.3 % (11.5-17.5); White Blood Count 6.9 K/mm3 (4.8-10.8)
[2022-04-28 13:07] LABS: Chloride 103 mmol/L (98-107); Potassium 4.2 mmoL/L (3.5-5.1); Sodium 137 mmol/L (136-145)
[2022-04-28 13:10] LABS: Anion Gap 14.2 mEq/L (5-15); Blood Urea Nitrogen 32 mg/dl (7-17); Carbon Dioxide 24 mmol/L (22.0-30.0); Estimated Glomerular Filt Rate 31 ml/min (>60); GFR (African American) 38 ML/MIN (>60); Glucose 102 mg/dl (74-100)
[2022-04-28 13:13] LABS: Calcium 12.9 mg/dl (8.4-10.2)
== END ==
PROVIDERS: PCP Internal Medicine Adolescent Medicine; Visit Provider Nurse Practitioner Family
DX: Z01.812 Encounter for preprocedural laboratory examination; Z20.822 Contact with and (suspected) exposure to COVID-19; I20.8 Other forms of angina pectoris; R94.31 Abnormal electrocardiogram [ECG] [EKG]
CPT/HCPCS: 36415; 80048; 85025; C9803; U0003; U0005

== ENCOUNTER 2022-04-29 08:55 | Day surgery (SDC) | payer MEDICARE, BC, SELFPAY ==
[2022-04-29] VITALS (15 sets, daily range): BP systolic 103–139; BP diastolic 58–75; PULSE 49–78; RESP 16–18; TEMP 36.9; O2SAT 96–100; BMI 20.9
--- NOTE | 2022-04-29 07:10 | IR_ITS ---
APPROVED REPORT Patient Location: Outpatient [employer] Machine Mechanic: CHANDRAKANT Knox RT (R) PROCEDURES Left heart catheterization Left ventriculogram Selective coronary angiogram INDICATION Abnormal Myoview, Angina pectoris Informed consent was obtained prior to the procedure. COMPLICATIONS NONE Estimated Blood Loss: LESS THAN 10 ML TECHNIQUE One percent lidocaine used to anesthetize the right anterior aspect of the wrist. The right radial artery was accessed via the Seldinger technique. A 6 Kos[place] sheath was placed in the right radial artery. 2.5 mg of verapamil, 800 mcg of nitroglycerin, 1mg Lidocaine and 5000 U Heparin were given through the arterial sheath. The papa catheter was also used to perform left heart catheterization, left ventriculogram and selective coronary angiogram. At the end of the procedure the sheath was removed good hemostasis was achieved using Traclet band, patient was transferred to the postop holding area in stable condition. ANGIOGRAPHIC RESULTS The left main artery Normal The left anterior descending artery Has diffuse 10 to 20% calcified stenoses. The mid LAD has a moderate sized myocardial bridge approximately 20 mm in length which compresses 70% during systole The circumflex artery Nondominant with diffuse 20% luminal irregularities The right coronary artery Large dominant with proximal 20% calcification mid vessel diffuse 20 to 30% calcifications The GREGG ventriculogram reveals Preserved 60% The left ventricular end-diastolic pressure 15 to 20 mmHg IMPRESSION Mild nonflow limiting coronary artery disease Myocardial bridge involving the mid LAD which is likely clinically insignificant Preserved ejection fraction Elevated LVEDP Hypercalcemia as identified on preoperative labs PLAN 1. Medical management for coronary artery disease 2. Patient requires work-up for hypercalcemia in the setting of renal insufficiency. Patient will follow up with Dr. Charles in the next 2 to 3 weeks for hypercalcemia evaluation Electronically signed by : Varun Blake MD 04/29/2022 12:19:55
== END 2022-04-29 14:01 | disposition home or self-care (01) ==
LOC: CATHLAB 08:57
PROVIDERS: PCP Internal Medicine Adolescent Medicine; Visit Provider Internal Medicine
DX: I25.118 Atherosclerotic heart disease of native coronary artery with other forms of angina pectoris (principal); R94.31 Abnormal electrocardiogram [ECG] [EKG]; Z79.899 Other long term (current) drug therapy; J44.9 Chronic obstructive pulmonary disease, unspecified; Z86.16 Personal history of COVID-19; I10 Essential (primary) hypertension; E78.5 Hyperlipidemia, unspecified; Z87.891 Personal history of nicotine dependence
CPT/HCPCS: 93458; 99152; C1725; C1769; C1894; J1644; Q9967

== ENCOUNTER → 2022-07-14 12:43 | Outpatient (CLI) | payer MEDICARE, BC, SELFPAY ==
[2022-07-14 13:40] VITALS: PULSE 64; PULSE 68
[2022-07-14 14:05] VITALS: BP 122/79; PULSE 60; RESP 16; O2SAT 97
[2022-07-14 14:13] VITALS: BP 133/77; PULSE 60; RESP 18; O2SAT 99
== END ==
PROVIDERS: PCP Internal Medicine Adolescent Medicine; Visit Provider Internal Medicine Pulmonary Disease
DX: R06.00 Dyspnea, unspecified (principal)
CPT/HCPCS: 94060; 94618; 94640; 94727; 94729

== ENCOUNTER 2022-08-14 10:00 | Outpatient (RCR) | payer MEDICARE, BC, SELFPAY ==
--- NOTE | 2022-05-25 15:00 | HMH.PTOPEV ---
PT Outpatient Evaluation Rehab PT Outpatient Evaluation Start: 05/25/22 14:15 Freq: Status: Active Protocol: Document 05/25/22 14:16 STACIEJOANN (Rec: 05/25/22 15:00 ISABELLA [id number]) Electronically Signed By Jaden Mckay PT 05/25/22 14:16 Outpatient Therapy Subjective History Subjective History This is the initial physical therapy evaluation for Nadria Helm. Pt is a 77 y/o female referred to PT for c/o weakness and LOB. Pt reports in January she was in hospital pneumonia and SBO. Pt reports having surgery to clear obstruction. Pt returned home w/ HHPT. Pt states home health never showed up. Pt reports she has fallen twice since returning home, once going upstairs, second she just turned in bathroom. Pt reports she had COVID in july and that was when she started noticing her weakness and decreased balance but increased after hospitalization. Chief Complaint Other Symptom Type Other Symptoms Relieved By Nothing Symptoms Aggravated By Standing,Physical Activity, Walking Prior Functional Limitations None Current Functional Limitations Housework,Standing,Recreation Activity,Walking,Stairs, Balance Balance Eval Chief Complaint vertigo No Did you feel dizzy, unsteady or faint? Yes Hx of Falls Hx Falls Yes Number in last 6 months 2 [place] Feet Together/Eyes open/Stable Surface pass Feet Together/Eyes Closed/Stable Surface fail Feet Together/Eyes open/Unstable Surface pass Feet Together/Eyes Closed/Unstable fail Surface GONSALEZ Balance Evaluation Sitting to Standing Ability Independent w/Hands Unsupported Stance Safely- 2 minutes Sitting Unsupported, Feet on Floor Safely- 2 minutes Standing to Sitting Ability Assist, Control w/Hands Transfer Ability Safely, Minimal Hand Use Unsupported Stance- Eyes Closed Safely, With Eyes Open Unsupported Stance- Eyes Open Independent, 1 minute Reaching Forward Standing Safely, 5 inches Pick- Up Object From Floor Independent/Safe Look Behind Shoulder - Standing Turns Sideways Only Turning 360 Degrees
== END 2022-08-14 10:05 | disposition home or self-care (01) ==
LOC: PT 10:00
PROVIDERS: PCP Internal Medicine Adolescent Medicine; Visit Provider Internal Medicine Adolescent Medicine
DX: R27.8 Other lack of coordination (principal)
CPT/HCPCS: 97110; 97112; 97163; 97164; 97530

== ENCOUNTER 2022-08-23 20:31 | Emergency (ER) | payer MEDICARE, BC, SELFPAY ==
[2022-08-23 20:33] VITALS: BMI 22.1
--- NOTE | 2022-08-23 20:34 | ECG_ITS ---
APPROVED REPORT Exam: Resting ECG HR:80 bpm ECG Measurements Heart Rate 80 AXES AL 156 P 75 QRSd 85 QRS 62 QT 350 T 71 QTc 386 Conclusion SINUS RHYTHM WITH SINUS ARRHYTHMIA NORMAL ECG UNCONFIRMED REPORT Electronically signed by : Wally Martinez MD 08/24/2022 17:59:55
--- NOTE | 2022-08-23 20:34 | XR_ITS ---
PROCEDURE INFORMATION: Exam: XR Chest Exam date and time: 08/23/2022 9:18 PM Age: 77 years old Clinical indication: Sternal or substernal pain; Prior surgery; Surgery date: 6+ months; Surgery type: Cardiac stent; Additional info: Chest pain TECHNIQUE: Imaging protocol: Radiologic exam of the chest. Views: 2 views. COMPARISON: CR XR CHEST PORTABLE 02/15/2022 4:04 PM FINDINGS: Lungs: Lungs are hyperexpanded, with increased retrosternal clear space, compatible chronic obstructive pulmonary physiologic changes. Pleural spaces: Minimal blunting of the right costophrenic angle, likely minimal pleural thickening.. Heart/Mediastinum: Normal. Vasculature: Atherosclerotic vascular disease. Bones/joints: Multilevel thoracolumbar spine degenerative disc disease, with S shaped scoliosis. Degenerative changes of the glenohumeral and acromioclavicular joints. Chronic traumatic deformity of the left proximal humerus and humeral head, unchanged. Organs: Cholecystectomy clips in the right upper abdomen. IMPRESSION: No acute cardiopulmonary abnormality.
[2022-08-23 20:43] VITALS: BP 146/86; PULSE 75; RESP 16; TEMP 36.7; O2SAT 98; BMI 20.1
--- NOTE | 2022-08-23 20:52 | CT_ITS ---
PROCEDURE INFORMATION: Exam: CT Abdomen And Pelvis With Contrast Exam date and time: 08/23/2022 9:29 PM Age: 77 years old Clinical indication: Abdominal tenderness; Prior surgery; Surgery date: 6+ months; Surgery type: Bowel obstruction surgery, hysterectomy, gb; Additional info: HX bowel obstruction TECHNIQUE: Imaging protocol: Computed tomography of the abdomen and pelvis with contrast. Radiation optimization: All CT scans at this facility use at least one of these dose optimization techniques: automated exposure control; mA and/or kV adjustment per patient size (includes targeted exams where dose is matched to clinical indication); or iterative reconstruction. Contrast material: ISOVUE; Contrast volume: 75 ml; Contrast route: IV; COMPARISON: CT ABDOMEN PELVIS W CON 02/15/2022 2:33 PM FINDINGS: Lungs: Minimal bibasilar atelectasis and/or scarring. Heart: Atherosclerotic disease of the visualized left anterior descending and right coronary arteries. Diaphragm: Small-sized hiatal hernia. Liver: Mild hepatomegaly. Gallbladder and bile ducts: Gallbladder surgically absent. Pancreas: Normal. Spleen: Normal. Adrenal glands: Mild bilateral adrenal hyperplasia. Kidneys and ureters: Mild bilateral renal atrophy and cortical thinning. Stomach and bowel: Moderate amount of stool throughout the colon, suggesting constipation. No obstruction. Appendix: No evidence of appendicitis. Intraperitoneal space: Unremarkable. No free air. No significant fluid collection. Vasculature: Atherosclerotic disease of the visualized distal thoracic aorta. Atherosclerotic disease of the abdominal aorta and iliac arteries. Phleboliths within the pelvis. Lymph nodes: Unremarkable. No enlarged lymph nodes. Urinary bladder: Unremarkable as visualized. Reproductive: Uterus surgically absent. Bones/joints: Dextroscoliosis of the lumbar spine. Generalized bony demineralization. Soft tissues: Normal. IMPRESSION: Moderate amount of stool throughout the colon, suggesting constipation. No obstruction.
[2022-08-23 20:58] LABS: Basophils # 0.1 K/mm3 (0-0.2); Basophils % 1.7 % (0.1-2.0); Eosinophils # 0.2 K/mm3 (0.0-0.4); Eosinophils % 3.5 % (0.1-12.0); Hematocrit 36.9 % (37.0-47.0); Hemoglobin 11.9 g/dL (12.2-16.2); Lymphocytes # 1.8 K/mm3 (0.7-4.5); Lymphocytes % 29.8 % (10-50); Mean Corpuscular HGB Conc 32.2 g/dL (31.8-35.4); Mean Corpuscular Hemoglobin 29.1 pg (27.0-31.2); Mean Corpuscular Volume 90.4 fl (81-99); Mean Platelet Volume 8.8 fl (7.4-10.4); Monocytes # 0.3 K/mm3 (0.1-1.0); Monocytes % 5.5 % (1.7-9.3); Neutrophils # 3.7 K/mm3 (1.8-7.8); Neutrophils % 59.5 % (37.0-80.0); Platelet Count 238 K/mm3 (142-424); Red Blood Count 4.08 M/mm3 (4.20-5.40); Red Cell Distribution Width 14.1 % (11.5-17.5); White Blood Count 6.2 K/mm3 (4.8-10.8)
--- NOTE | 2022-08-23 20:59 | HMH.EDCP ---
Discharge Plan Disposition Patient Disposition: Home, Self-Care Prescriptions Prescriptions: New prednisone [prednisone] 20 mg tablet 20 mg PO BID Qty: 10 0RF No Action nitroglycerin 0.4 mg tablet, sublingual 0.4 mg SL Q5M PRN (Reason: chest pain) Qty: 20 0RF Rx Instructions: do not exceed 3 doses per episode metoprolol succinate 25 mg tablet extended release 24 hr 25 mg PO DAILY fluticasone propionate 50 mcg/actuation spray,suspension 1 spray NS DAILY Caltrate 600 plus D 600 mg (1,500 mg)-800 unit tablet,chewable 1 tab PO DAILY rosuvastatin [Crestor] 20 mg tablet 20 mg PO DAILY Qty: 30 5RF vitamin D3-vitamin K2 1 EACH tablet,disintegrating 1 tab PO DAILY aspirin 81 MG tablet,delayed release (DR/EC) 81 mg PO DAILY spironolactone 25 MG tablet 25 mg PO BID ipratropium-albuterol 120 PUFF mist 1 puff IH QIDRT Referrals Follow up/Referrals: Provider,Referral, MD [Referring] - See instructions Clinical Impressions Clinical Impression: Chest pain, Atypical chest pain Discharge ED Provider: Ramon White Chest Pain HPI General Chief Complaint: Chest Pain Stated Complaint: Chest Pain Time Seen by Provider: 08/23/22 20:59 Mode of Arrival: Ambulatory Source of Information: Patient, Relative and Medical Record Limitations: No Limitations Description of Symptoms (Recalled from ER Triage Doc. by RN): Pt states that she has been having substernal chest pain for the past two days that radiates into the midupper part of her back. States the pain started in her back and has gotten worse over the last two days. Denies any injury. States the pain is worse when she breathes in. Also, c/o dizziness for prior two days. History of Present Illness HPI narrative: ant chest pain to back over the last 2 days w/o fever/rash or trauma - has hx of cad but feels different - has some insp pain MD complaint: chest pain indicative of cardiac Onset (ago): hour(s) Duration: constant Activity at onset: during rest Pain location: substernal Severity: moderate Quality: sharp Pain radiation: back Exacerbating factors: inspiration Risk Factors for CAD: Hypertension and Family Hx of CAD Treatments prior to or on arrival for Cardiac Chest Pain: none JAM Score for Non-Stemi Age of Patient: 70-79 years old Heart Rate: 50-69 bpm Systolic Blood Pressure: 140-159 mmHg Serum Creatinine: 0.80-1.19 mg/dl CHF Kill[place] Class: I-No CHF Other Risk Factors: None Non-Stemi Risk Score: 109 Related Data Prior Cardiac Testing/Procedures: Stenting On Oral Contraceptives: No Home Medications Medication Instructions Recorded Confirmed cholecalciferol(vit D3) 1,000 1 tab PO DAILY Supplement 10/02/19 08/05/22 unit-vit K2 90 mcg disintegrating tablet calcium carbonate 600 mg-vitamin 1 tab PO DAILY Supplement 10/22/21 08/05/22 D3 20 mcg (800 unit) chewable tablet (Caltrate 600 plus D) fluticasone propionate 50 1 spray intranasal DAILY allergies 10/22/21 08/05/22 mcg/actuation nasal spray,suspension metoprolol succinate 25 mg 25 mg PO DAILY Hypertension 10/22/21 08/05/22 tablet,extended release 24 hr aspirin 81 mg tablet,delayed 81 mg PO DAILY heart health 01/30/22 08/05/22 release ipratropium 20 mcg-albuterol 100 1 puff inhalation QIDRT SHORTNESS 02/15/22 08/05/22 mcg/actuation mist for inhalation OF AIR spironolactone 25 mg tablet 25 mg PO BID Edema 02/15/22 08/05/22 Previous Rx's Medication Instructions Recorded nitroglycerin 0.4 mg sublingual 0.4 mg sublingual Q5M PRN chest 11/03/21 tablet pain #20 tabs rosuvastatin 20 mg tablet (Crestor) 20 mg PO DAILY #30 tabs 06/22/22 prednisone 20 mg tablet 20 mg PO BID #10 tabs 08/24/22 Allergies Allergy/AdvReac Type Severity Reaction Status Date / Time atorvastatin AdvReac Mild myalgias Verified 08/05/22 09:42 [facility] Medical History (Updated 08/24/22 @ 00:40 by Ramon White MD) Chest pain Fatig
[2022-08-23 21:00] LABS: Chloride 100 mmol/L (98-107); Potassium 4.4 mmoL/L (3.5-5.1); Sodium 137 mmol/L (136-145)
[2022-08-23 21:01] VITALS: BP 125/66; PULSE 68; RESP 21; O2SAT 98
[2022-08-23 21:02] LABS: Amylase 140 U/L (30-110); Blood Urea Nitrogen 32 mg/dl (7-17); Creatinine Clearance Estimated 37 mL/min (50-200); Estimated Glomerular Filt Rate 48 ml/min (>60); GFR (African American) 58 ML/MIN (>60)
[2022-08-23 21:03] LABS: Anion Gap 16.4 mEq/L (5-15); Calcium 9.6 mg/dl (8.4-10.2); Carbon Dioxide 25 mmol/L (22.0-30.0); Glucose 85 mg/dl (74-100)
[2022-08-23 21:10] LABS: Lipase 200 U/L (23-300)
[2022-08-23 21:16] LABS: Troponin I < 0.01 ng/ml (0.00-0.034)
[2022-08-23 22:00] VITALS: BP 134/80; PULSE 69; RESP 20; O2SAT 97
[2022-08-23 22:56] LABS: Coronavirus 19, PCR Not Detected (NotDetected); Influenza A, PCR Not Detected (NotDetected); Influenza B, PCR Not Detected (NotDetected)
--- NOTE | 2022-08-23 23:13 | PC.NURSE ---
speaking with Dr. Brown
--- NOTE | 2022-08-23 23:20 | CT_ITS ---
PROCEDURE INFORMATION: Exam: CTA Chest With Contrast Exam date and time: 08/23/2022 11:38 PM Age: 77 years old Clinical indication: Pain; Shortness of breath; On breathing; Additional info: SOA, chest pain, pain on inspiration TECHNIQUE: Imaging protocol: Computed tomographic angiography of the chest with contrast. 3D rendering (Not supervised by radiologist): MIP and/or 3D reconstructed images were created by the technologist. Radiation optimization: All CT scans at this facility use at least one of these dose optimization techniques: automated exposure control; mA and/or kV adjustment per patient size (includes targeted exams where dose is matched to clinical indication); or iterative reconstruction. Contrast material: ISOVUE 370; Contrast volume: 70 ml; Contrast route: INTRAVENOUS (IV); COMPARISON: CT ANGIO CHEST PE PROTOCOL 02/09/2022 5:33 AM FINDINGS: Pulmonary arteries: No acute pulmonary emboli. Aorta: Atherosclerotic disease of the thoracic aorta, without aneurysm or dissection. Lungs: Moderate upper lobe centrilobular emphysema. Mild bibasilar atelectasis and/or scarring. Mild bilateral mid and lower lung zone bronchial wall thickening, compatible with reactive airway disease or bronchitis. Pleural spaces: Unremarkable. No pneumothorax. No pleural effusion. Heart: Moderate three-vessel coronary artery atherosclerotic disease. Lymph nodes: Unremarkable. No enlarged lymph nodes. Gallbladder and bile ducts: Gallbladder surgically absent. Spleen: Splenic calcifications, compatible with prior granulomatous disease. Adrenal glands: Mild bilateral adrenal hyperplasia. Bones/joints: Moderate degenerative changes of the left glenohumeral joint, manifest by joint space narrowing and osteophyte formation. Old, healed fracture of the left proximal humerus. Soft tissues: Unremarkable. IMPRESSION: 1. No acute pulmonary emboli. 2. Mild bilateral mid and lower lung zone bronchial wall thickening, compatible with reactive airway disease or bronchitis.
--- NOTE | 2022-08-23 23:22 | PC.NURSE ---
Dr. White gave verbal order for Morphine 4mg IVP 1 x for pain control.
[2022-08-23 23:24] LABS: Microscopic, Urine URINE MICROSCOPIC (MICROSCOPIC)
[2022-08-23 23:26] LABS: Appearance,Urine CLEAR (Clear); Bilirubin,Urine Negative (Negative); Blood, Urine TRACE-I (Negative); Color,Urine STRAW (Yellow); Glucose,Urine (UA) Negative (Negative); Ketones,Urine Negative (Negative); Leukocyte Esterase,Urine Negative (Negative); Nitrate,Urine Negative (Negative); Protein,Urine Negative (Negative); Urobilinogen,Urine 0.2 EU/dl (0.2)
[2022-08-23 23:39] LABS: WBC,Urine Occasional #/hpf (0-3)
[2022-08-23 23:50] LABS: Troponin I < 0.01 ng/ml (0.00-0.034)
--- NOTE | 2022-08-24 00:39 | PC.NURSE ---
Verbal order received from Dr. White for t-3 take home pack
[2022-08-24 00:46] VITALS: BP 125/78; PULSE 87; RESP 20; TEMP 36.8; O2SAT 98
== END 2022-08-24 01:16 | disposition home or self-care (01) ==
PROVIDERS: Emergency Provider Emergency Medicine; PCP Internal Medicine Adolescent Medicine
DX: R07.89 Other chest pain (principal); Z79.82 Long term (current) use of aspirin; Z79.899 Other long term (current) drug therapy; Z88.8 Allergy status to other drugs, medicaments and biological substances; Z87.19 Personal history of other diseases of the digestive system; G47.30 Sleep apnea, unspecified; Z87.891 Personal history of nicotine dependence; I48.91 Unspecified atrial fibrillation; I50.9 Heart failure, unspecified; E87.5 Hyperkalemia; N28.9 Disorder of kidney and ureter, unspecified; I27.20 Pulmonary hypertension, unspecified; J44.9 Chronic obstructive pulmonary disease, unspecified; Z95.5 Presence of coronary angioplasty implant and graft; I25.10 Atherosclerotic heart disease of native coronary artery without angina pectoris; I11.0 Hypertensive heart disease with heart failure
CPT/HCPCS: 71046; 71275; 74177; 80048; 81001; 82150; 83690; 84484; 85025; 93005; 96365; 96375; 99285; C9803; Q9967; U0003; U0005

== ENCOUNTER → 2022-09-24 13:17 | Outpatient (CLI) | payer MEDICARE, BC, SELFPAY ==
--- NOTE | 2022-09-24 13:27 | XR_ITS ---
FINAL REPORT CLINICAL HISTORY: ABD PAIN, HX OF INTESTINAL OBSTRUCTION COMPARISON: 02/16/2022 FINDINGS: ABDOMEN SINGLE VIEW There is gas in large in large and small bowel. There is no definite obstructive pattern. Surgical clips are seen in the right hemiabdomen. No abnormal calcification is seen. IMPRESSION: No acute process. Reviewed, Interpreted and Dictated by Olu Bailey MD Transcribed by Aure Nugent Authenticated and [facility]
== END ==
PROVIDERS: PCP Internal Medicine Adolescent Medicine; Visit Provider Nurse Practitioner Family
DX: R10.84 Generalized abdominal pain (principal); Z87.19 Personal history of other diseases of the digestive system
CPT/HCPCS: 74018

== ENCOUNTER → 2022-10-12 15:07 | Outpatient (CLI) | payer MEDICARE, BC, SELFPAY ==
[2022-10-12 16:03] LABS: Basophils # 0.1 K/mm3 (0-0.2); Basophils % 1.4 % (0.1-2.0); Eosinophils # 0.2 K/mm3 (0.0-0.4); Hematocrit 38.7 % (37.0-47.0); Hemoglobin 12.4 g/dL (12.2-16.2); Lymphocytes # 1.9 K/mm3 (0.7-4.5); Lymphocytes % 26.5 % (10-50); Mean Corpuscular HGB Conc 32.1 g/dL (31.8-35.4); Mean Corpuscular Hemoglobin 28.9 pg (27.0-31.2); Mean Corpuscular Volume 89.9 fl (81-99); Mean Platelet Volume 8.7 fl (7.4-10.4); Monocytes # 0.4 K/mm3 (0.1-1.0); Monocytes % 5.1 % (1.7-9.3); Neutrophils # 4.6 K/mm3 (1.8-7.8); Platelet Count 253 K/mm3 (142-424); Red Blood Count 4.31 M/mm3 (4.20-5.40); Red Cell Distribution Width 13.6 % (11.5-17.5); White Blood Count 7.1 K/mm3 (4.8-10.8)
[2022-10-12 17:10] LABS: Alanine Aminotransferase 17 U/L (12-78); Albumin Level 4.8 g/dl (3.5-5.0); Albumin/Globulin Ratio 1.6 (1.1-1.8); Alkaline Phosphatase 134 U/L (38-126); Aspartate Amino Transferase 27 U/L (14-36); Bilirubin,Total 0.5 mg/dl (0.2-1.3); Blood Urea Nitrogen 30 mg/dl (7-17); Calcium 10.9 mg/dl (8.4-10.2); Carbon Dioxide 20 mmol/L (22.0-30.0); Chloride 98 mmol/L (98-107); Estimated Glomerular Filt Rate 54 ml/min (>60); GFR (African American) 65 ML/MIN (>60); Glucose 94 mg/dl (74-100); Magnesium 1.9 mg/dl (1.6-2.3); Sodium 136 mmol/L (136-145); Total Protein,Serum 7.8 g/dl (6.3-8.2)
[2022-10-12 17:46] LABS: Anion Gap 22.4 mEq/L (5-15); Potassium 4.4 mmoL/L (3.5-5.1)
== END ==
PROVIDERS: PCP Internal Medicine Adolescent Medicine; Visit Provider Internal Medicine Adolescent Medicine
DX: R10.84 Generalized abdominal pain (principal); R63.4 Abnormal weight loss
CPT/HCPCS: 36415; 80053; 83735; 85025

== ENCOUNTER 2022-10-14 20:22 | Emergency (ER) | payer MEDICARE, BC, SELFPAY ==
[2022-10-14 20:22] VITALS: BP 151/88; PULSE 87; RESP 16; TEMP 36.6; O2SAT 98; BMI 19.8
[2022-10-14 22:52] LABS: Basophils # 0.1 K/mm3 (0-0.2); Basophils % 1.2 % (0.1-2.0); Eosinophils # 0.2 K/mm3 (0.0-0.4); Eosinophils % 3.3 % (0.1-12.0); Hemoglobin 12.2 g/dL (12.2-16.2); Lymphocytes # 2.2 K/mm3 (0.7-4.5); Lymphocytes % 30.4 % (10-50); Mean Corpuscular HGB Conc 30.6 g/dL (31.8-35.4); Mean Corpuscular Hemoglobin 28.2 pg (27.0-31.2); Mean Corpuscular Volume 92.3 fl (81-99); Mean Platelet Volume 9.1 fl (7.4-10.4); Monocytes # 0.4 K/mm3 (0.1-1.0); Monocytes % 5.4 % (1.7-9.3); Neutrophils # 4.3 K/mm3 (1.8-7.8); Neutrophils % 59.7 % (37.0-80.0); Platelet Count 256 K/mm3 (142-424); Red Blood Count 4.34 M/mm3 (4.20-5.40); Red Cell Distribution Width 13.7 % (11.5-17.5); White Blood Count 7.3 K/mm3 (4.8-10.8)
[2022-10-14 22:58] LABS: Alanine Aminotransferase 19 U/L (12-78); Albumin Level 4.9 g/dl (3.5-5.0); Albumin/Globulin Ratio 1.4 (1.1-1.8); Alkaline Phosphatase 126 U/L (38-126); Amylase 251 U/L (30-110); Aspartate Amino Transferase 31 U/L (14-36); Bilirubin,Total 0.2 mg/dl (0.2-1.3); Blood Urea Nitrogen 37 mg/dl (7-17); Calcium 10.5 mg/dl (8.4-10.2); Carbon Dioxide 27 mmol/L (22.0-30.0); Chloride 103 mmol/L (98-107); Creatinine Clearance Estimated 33 mL/min (50-200); Estimated Glomerular Filt Rate 44 ml/min (>60); GFR (African American) 53 ML/MIN (>60); Globulin 3.4 g/dL (1.3-3.2); Glucose 103 mg/dl (74-100); Lipase 204 U/L (23-300); Sodium 138 mmol/L (136-145); Total Protein,Serum 8.3 g/dl (6.3-8.2)
[2022-10-14 23:04] LABS: C-Reactive Protein 4.2 mg/L (0-4)
[2022-10-14 23:17] LABS: Procalcitonin 0.073 ng/mL (0.0-2.0)
[2022-10-14 23:30] VITALS: BP 136/71; PULSE 64; O2SAT 97
--- NOTE | 2022-10-14 23:40 | CT_ITS ---
PROCEDURE INFORMATION: Exam: CT Abdomen And Pelvis With Contrast Exam date and time: 10/14/2022 11:53 PM Age: 77 years old Clinical indication: Abdominal pain; Localized; Lower; Additional info: Abd pain TECHNIQUE: Imaging protocol: Computed tomography of the abdomen and pelvis with contrast. Radiation optimization: All CT scans at this facility use at least one of these dose optimization techniques: automated exposure control; mA and/or kV adjustment per patient size (includes targeted exams where dose is matched to clinical indication); or iterative reconstruction. Contrast material: ISOVUE; Contrast volume: 75 ml; Contrast route: IV; COMPARISON: 1. CT ABDOMEN PELVIS W CON 08/23/2022 9:[address] ABDOMEN PELVIS W CON 02/15/2022 2:33 PM FINDINGS: Lungs: The lung bases are clear. No pleural effusion. Liver: There is mild diffuse low-attenuation of the liver consistent with fatty infiltration. No discrete hepatic mass identified. There is a small calcification at the right hepatic lobe. Gallbladder and bile ducts: Status post cholecystectomy. No ductal dilation. Pancreas: Unremarkable. Spleen: Small splenic calcification. Adrenal glands: The adrenals are mildly hypertrophic bilaterally similar to the prior study. Kidneys and ureters: No evidence of renal mass or hydronephrosis. Stomach and bowel: Small bowel caliber is normal. There are postoperative changes of a distended loop of small bowel within the mid pelvis which is unchanged in appearance since 02/15/2022. No bowel obstruction. No mucosal thickening. Appendix: No evidence of appendicitis. Intraperitoneal space: No free air. No significant fluid collection. Retroperitoneal space: No bulky lymphadenopathy. Vasculature: The abdominal aorta is normal in caliber with moderate wall calcifications. Lymph nodes: Unremarkable. No enlarged lymph nodes. Urinary bladder: Unremarkable as visualized. Reproductive: The uterus is absent. The Bones/joints: No acute osseous abnormality. There is severe degenerative disc disease L5-S1. Soft tissues: Unremarkable. IMPRESSION: 1. No acute findings. 2. Postoperative changes of chronically dilated small bowel loop within the pelvis appears stable since the comparison studies. No bowel obstruction. 3. Status post cholecystectomy and hysterectomy.
[2022-10-14 23:50] LABS: Erythrocyte Sedimentation Rate 25 mm/hr (0-30)
[2022-10-15 00:02] VITALS: PULSE 89; O2SAT 95
--- NOTE | 2022-10-15 00:16 | HMH.EDABDPAI ---
Discharge Plan Disposition Patient Disposition: Home, Self-Care Prescriptions Prescriptions: New metoclopramide HCl [Reglan] 5 mg tablet 5 mg PO ACHS Qty: 40 0RF clonidine HCl 0.1 mg tablet 0.1 mg PO BID Qty: 20 0RF No Action nitroglycerin 0.4 mg tablet, sublingual 0.4 mg SL Q5M PRN (Reason: chest pain) Qty: 20 0RF Rx Instructions: do not exceed 3 doses per episode metoprolol succinate 25 mg tablet extended release 24 hr 25 mg PO DAILY fluticasone propionate 50 mcg/actuation spray,suspension 1 spray NS DAILY Caltrate 600 plus D 600 mg (1,500 mg)-800 unit tablet,chewable 1 tab PO DAILY vitamin D3-vitamin K2 1 EACH tablet,disintegrating 1 tab PO DAILY aspirin 81 MG tablet,delayed release (DR/EC) 81 mg PO DAILY spironolactone 25 MG tablet 25 mg PO BID ipratropium-albuterol 120 PUFF mist 1 puff IH QIDRT rosuvastatin [Crestor] 20 mg tablet 20 mg PO DAILY Referrals Follow up/Referrals: Wally Martinez MD [Primary Care Provider] - See instructions Clinical Impressions Clinical Impression: Abdominal pain Instructions Patient Instructions: DI for Acute Abdominal Pain Discharge ED Provider: Ramon White Abdominal Pain HPI General Chief Complaint: Abdominal Pain Stated Complaint: stomach and Back Pain Time Seen by Provider: 10/15/22 00:16 Mode of Arrival: Wheelchair Source of Information: Patient, Relative and Medical Record Limitations: No Limitations Description of Symptoms (Recalled from ER Triage Doc. by RN): pt c/o abd pain with diarrhea that been going on since july. pt seen pcp on wednesday and is scheduled for ct scan tommorrow but is unable to wait due to pain. History of Present Illness HPI narrative: pt with abd pain with bloating and has seen pcp - no fever or vomiting - no caser up or gu sx complaint: abdominal pain Onset (ago): day(s) Consistency: intermittent Location: diffuse Severity: moderate Quality: cramping Context: history of similar episodes Associated symptoms: denies other symptoms Related Data Home Medications Medication Instructions Recorded Confirmed cholecalciferol(vit D3) 1,000 1 tab PO DAILY Supplement 10/02/19 10/15/22 unit-vit K2 90 mcg disintegrating tablet calcium carbonate 600 mg-vitamin 1 tab PO DAILY Supplement 10/22/21 10/15/22 D3 20 mcg (800 unit) chewable tablet (Caltrate 600 plus D) fluticasone propionate 50 1 spray intranasal DAILY allergies 10/22/21 10/15/22 mcg/actuation nasal spray,suspension metoprolol succinate 25 mg 25 mg PO DAILY Hypertension 10/22/21 10/15/22 tablet,extended release 24 hr aspirin 81 mg tablet,delayed 81 mg PO DAILY heart health 01/30/22 10/15/22 release ipratropium 20 mcg-albuterol 100 1 puff inhalation QIDRT SHORTNESS 02/15/22 10/15/22 mcg/actuation mist for inhalation OF AIR spironolactone 25 mg tablet 25 mg PO BID Edema 02/15/22 10/15/22 rosuvastatin 20 mg tablet (Crestor) 20 mg PO DAILY High cholesterol 10/15/22 10/15/22 Previous Rx's Medication Instructions Recorded nitroglycerin 0.4 mg sublingual 0.4 mg sublingual Q5M PRN chest 11/03/21 tablet pain #20 tabs clonidine HCl 0.1 mg tablet 0.1 mg PO BID #20 tabs 10/15/22 metoclopramide HCl 5 mg tablet 5 mg PO ACHS #40 tabs 10/15/22 (Reglan) Allergies Allergy/AdvReac Type Severity Reaction Status Date / Time atorvastatin AdvReac Mild myalgias Verified 08/05/22 09:42 [facility] Disclaimer: The information contained in this section may have been updated after the patient was seen, as this information can be updated by other users. Medical History (Updated 10/15/22 @ 01:40 by Ramon White MD) Chest pain Fatigue KM (obstructive sleep apnea) Small intestine obstruction SOB (shortness of breath) on exertion Family History (Updated 08/05/22 @ 09:45 by Chelsea Moody) Coronary artery disease Social History Smoking Status: Never smoker second h
[2022-10-15 00:30] VITALS: BP 129/66; PULSE 57; O2SAT 95
[2022-10-15 00:35] LABS: Coronavirus 19, PCR Not Detected (NotDetected); Influenza A, PCR Not Detected (NotDetected); Influenza B, PCR Not Detected (NotDetected)
[2022-10-15 00:45] LABS: Lactic Acid 0.7 mmol/L (0.7-2.1)
[2022-10-15 01:00] VITALS: BP 120/68; PULSE 65; O2SAT 95
[2022-10-15 01:37] VITALS: BP 133/80; PULSE 70; RESP 19; TEMP 36.6; O2SAT 97
== END 2022-10-15 02:37 | disposition home or self-care (01) ==
PROVIDERS: Emergency Provider Emergency Medicine; PCP Internal Medicine Adolescent Medicine
DX: R10.9 Unspecified abdominal pain (principal); Z79.82 Long term (current) use of aspirin; Z79.899 Other long term (current) drug therapy; Z88.8 Allergy status to other drugs, medicaments and biological substances; G47.33 Obstructive sleep apnea (adult) (pediatric); Z87.19 Personal history of other diseases of the digestive system; I10 Essential (primary) hypertension; E78.5 Hyperlipidemia, unspecified; Z95.5 Presence of coronary angioplasty implant and graft; J44.9 Chronic obstructive pulmonary disease, unspecified; I27.20 Pulmonary hypertension, unspecified; N28.9 Disorder of kidney and ureter, unspecified; I25.2 Old myocardial infarction; I48.91 Unspecified atrial fibrillation
CPT/HCPCS: 74177; 80053; 82150; 83605; 83690; 84145; 85025; 85651; 86140; 96365; 96366; 96375; 99284; C9803; J2405; Q9967; U0003; U0005

== ENCOUNTER 2022-10-23 01:23 | Inpatient (IN) | payer MEDICARE, BC, SELFPAY ==
[2022-10-23] VITALS (9 sets, daily range): BP systolic 115–145; BP diastolic 61–77; PULSE 60–101; RESP 14–20; TEMP 36.5–36.8; O2SAT 93–98; BMI 19.8; BMI 20.2
--- NOTE | 2022-10-23 01:20 | ECG_ITS ---
APPROVED REPORT Exam: Resting ECG HR:113 bpm ECG Measurements Heart Rate 113 AXES PA 137 P 73 QRSd 97 QRS 70 QT 316 T -16 QTc [address] DEVIATION AND MODERATE T-WAVE ABNORMALITY, CONSIDER LATERAL ISCHEMIA [-0.1+ mV T-WAVE IN I/aVL/V5/V6] ABNORMAL ECG UNCONFIRMED REPORT Electronically signed by : Wally Martinez MD 10/23/2022 09:23:03
--- NOTE | 2022-10-23 01:28 | CT_ITS ---
PROCEDURE INFORMATION: Exam: CT Abdomen And Pelvis With Contrast Exam date and time: 10/23/2022 2:20 AM Age: 77 years old Clinical indication: Vomiting; Abdominal pain; Prior surgery; Additional info: Diffuse tenderness, history of sbo TECHNIQUE: Imaging protocol: Computed tomography of the abdomen and pelvis with contrast. Radiation optimization: All CT scans at this facility use at least one of these dose optimization techniques: automated exposure control; mA and/or kV adjustment per patient size (includes targeted exams where dose is matched to clinical indication); or iterative reconstruction. Contrast material: ISOVUE; Contrast volume: 75 ml; Contrast route: IV; COMPARISON: CT ABDOMEN PELVIS W CON 10/14/2022 11:53 PM FINDINGS: Lungs: No acute finding. Liver: Normal. No mass. Gallbladder and bile ducts: The gallbladder is absent. There is no biliary ductal dilation. Pancreas: Normal. No ductal dilation. Spleen: Normal. No splenomegaly. Adrenal glands: Mild adrenal hyperplasia. Kidneys and ureters: Normal. No hydronephrosis. Stomach and bowel: A patulous small bowel anastomosis is noted in the right lower quadrant. There are multiple loops of dilated fluid-filled small bowel measuring up to 5 cm in size. There is a 5 cm length of narrowed small bowel representing the transition zone just proximal to the anastomosis. The proximal extent of this narrowed small bowel demonstrates mild wall thickening which may represent inflammation. Appendix: No evidence of appendicitis. Intraperitoneal space: Unremarkable. No free air. No significant fluid collection. Vasculature: Significant calcific atherosclerotic disease is noted. There is no aneurysmal dilation of the aorta. Lymph nodes: Unremarkable. No enlarged lymph nodes. Urinary bladder: Unremarkable as visualized. Reproductive: The uterus is absent. Bones/joints: Old T11 compression deformity is noted. Soft tissues: Unremarkable. IMPRESSION: 1. Small-bowel obstruction with 5 cm length transition zone in the right lower quadrant just proximal to the small bowel anastomosis. The proximal extent of this narrowed small bowel suggests some wall thickening which may represent inflammation. The transition zone is noted on series 3 images 74 through 78. 2. Other findings as detailed.
--- NOTE | 2022-10-23 01:31 | HMH.EDGENADL ---
Discharge Plan Disposition Patient Disposition: Admitted As Inpatient Condition: Fair Chief Complaint: Nausea/Vomiting/Diarrhea Prescriptions Prescriptions: No Action nitroglycerin 0.4 mg tablet, sublingual 0.4 mg SL Q5M PRN (Reason: chest pain) Qty: 20 0RF Rx Instructions: do not exceed 3 doses per episode metoprolol succinate 25 mg tablet extended release 24 hr 25 mg PO DAILY fluticasone propionate 50 mcg/actuation spray,suspension 1 spray NS DAILY Caltrate 600 plus D 600 mg (1,500 mg)-800 unit tablet,chewable 1 tab PO DAILY vitamin D3-vitamin K2 1 EACH tablet,disintegrating 1 tab PO DAILY aspirin 81 MG tablet,delayed release (DR/EC) 81 mg PO DAILY spironolactone 25 MG tablet 25 mg PO BID ipratropium-albuterol 120 PUFF mist 1 puff IH QIDRT rosuvastatin [Crestor] 20 mg tablet 20 mg PO DAILY metoclopramide HCl [Reglan] 5 mg tablet 5 mg PO ACHS Qty: 40 0RF clonidine HCl 0.1 mg tablet 0.1 mg PO BID Qty: 20 0RF Referrals Follow up/Referrals: Wally Martinez MD [Primary Care Provider] - See instructions Clinical Impressions Clinical Impression: Complete obstruction of small intestine Instructions Patient Instructions: DI for Diarrhea and Traveler's Diarrhea -- Adult, DI for Diarrhea and Traveler's Diarrhea -- Child, DI for Nausea -- Adult, DI for Nausea -- Child Discharge ED Provider: Ganesh Lewis General Adult HPI General Chief complaint: Nausea/Vomiting/Diarrhea Stated complaint: Abd Pain/Vomiting Time Seen by Provider: 10/23/22 01:30 Mode of Arrival: EMS Source of Information: Patient Limitations: No Limitations History of Present Illness HPI narrative: This is a 77-year-old female with history of ACS, MS, stress-induced A. fib (not currently in A. fib nor on anticoagulation), CHF, hyperlipidemia, hypertension, small bowel obstruction x2 status post surgical correction, COPD who is presenting with abdominal pain. Patient states that she has been having abdominal pain since July. She has no new abdominal pains, however she started vomiting approximately 2 hours prior to arrival. Vomiting has been nonbloody, nonbilious. She has chronic diarrhea which has not worsened and has been nonbloody as well. Denies fevers, chills, inability to tolerate p.o. intake, dysuria, hematuria, chest pain, shortness of breath, cough, nausea, vomiting, but does have diffuse abdominal pain. Abdominal pain is chronic and nonacute, as stated above. It does not radiate, currently moderate in intensity. Related Data Home Medications Medication Instructions Recorded Confirmed cholecalciferol(vit D3) 1,000 1 tab PO DAILY Supplement 10/02/19 10/15/22 unit-vit K2 90 mcg disintegrating tablet calcium carbonate 600 mg-vitamin 1 tab PO DAILY Supplement 10/22/21 10/15/22 D3 20 mcg (800 unit) chewable tablet (Caltrate 600 plus D) fluticasone propionate 50 1 spray intranasal DAILY allergies 10/22/21 10/15/22 mcg/actuation nasal spray,suspension metoprolol succinate 25 mg 25 mg PO DAILY Hypertension 10/22/21 10/15/22 tablet,extended release 24 hr aspirin 81 mg tablet,delayed 81 mg PO DAILY heart health 01/30/22 10/15/22 release ipratropium 20 mcg-albuterol 100 1 puff inhalation QIDRT SHORTNESS 02/15/22 10/15/22 mcg/actuation mist for inhalation OF AIR spironolactone 25 mg tablet 25 mg PO BID Edema 02/15/22 10/15/22 rosuvastatin 20 mg tablet (Crestor) 20 mg PO DAILY High cholesterol 10/15/22 10/15/22 clonidine HCl 0.1 mg tablet 0.1 mg PO BID htn 10/23/22 10/23/22 metoclopramide HCl 5 mg tablet 5 mg PO ACHS Nausea & vomiting 10/23/22 10/23/22 (Reglan) Previous Rx's Medication Instructions Recorded nitroglycerin 0.4 mg sublingual 0.4 mg sublingual Q5M PRN chest 11/03/21 tablet pain #20 tabs Allergies Allergy/AdvReac Type Severity Reaction Status Date / Time atorvastatin AdvReac Mild myalgias Verified 08/05/22 09:42
--- NOTE | 2022-10-23 01:35 | XR_ITS ---
PROCEDURE INFORMATION: Exam: XR Chest Exam date and time: 10/23/2022 2:07 AM Age: 77 years old Clinical indication: Pain; Other: Epigastric; Additional info: Epigastric pain, history of chf and acs TECHNIQUE: Imaging protocol: Radiologic exam of the chest. Views: 1 view. COMPARISON: CR XR CHEST 2V 08/23/2022 9:18 PM FINDINGS: Lungs: Unremarkable. No consolidation. Pleural spaces: Unremarkable. No pleural effusion. No pneumothorax. Heart/Mediastinum: The heart is mildly enlarged. Vasculature: Unremarkable. Bones/joints: Severe degenerative changes of the left shoulder are noted likely posttraumatic in nature. IMPRESSION: There is no acute cardiopulmonary finding.
[2022-10-23 01:44] LABS: Basophils % 0.3 % (0.1-2.0); Eosinophils # 0.1 K/mm3 (0.0-0.4); Eosinophils % 0.8 % (0.1-12.0); Hematocrit 42.7 % (37.0-47.0); Hemoglobin 13.7 g/dL (12.2-16.2); Lymphocytes # 0.8 K/mm3 (0.7-4.5); Lymphocytes % 9.7 % (10-50); Mean Corpuscular Hemoglobin 28.8 pg (27.0-31.2); Mean Corpuscular Volume 89.8 fl (81-99); Mean Platelet Volume 9.4 fl (7.4-10.4); Monocytes # 0.3 K/mm3 (0.1-1.0); Monocytes % 3.5 % (1.7-9.3); Neutrophils # 7.2 K/mm3 (1.8-7.8); Neutrophils % 85.9 % (37.0-80.0); Platelet Count 305 K/mm3 (142-424); Red Blood Count 4.76 M/mm3 (4.20-5.40); Red Cell Distribution Width 13.5 % (11.5-17.5); White Blood Count 8.4 K/mm3 (4.8-10.8)
[2022-10-23 01:55] LABS: Lactic Acid 1.1 mmol/L (0.7-2.1)
[2022-10-23 01:56] LABS: Alanine Aminotransferase 26 U/L (12-78); Albumin Level 4.8 g/dl (3.5-5.0); Albumin/Globulin Ratio 1.4 (1.1-1.8); Alkaline Phosphatase 167 U/L (38-126); Anion Gap 18.1 mEq/L (5-15); Aspartate Amino Transferase 33 U/L (14-36); Bilirubin,Total 0.5 mg/dl (0.2-1.3); Blood Urea Nitrogen 37 mg/dl (7-17); Calcium 10.9 mg/dl (8.4-10.2); Carbon Dioxide 21 mmol/L (22.0-30.0); Chloride 102 mmol/L (98-107); Creatinine Clearance Estimated 31 mL/min (50-200); Estimated Glomerular Filt Rate 40 ml/min (>60); GFR (African American) 48 ML/MIN (>60); Globulin 3.4 g/dL (1.3-3.2); Glucose 130 mg/dl (74-100); Lipase 109 U/L (23-300); Potassium 4.1 mmoL/L (3.5-5.1); Sodium 137 mmol/L (136-145); Total Protein,Serum 8.2 g/dl (6.3-8.2)
[2022-10-23 02:05] LABS: MANUAL DIFFERENTIAL MANUAL DIFFERENTIAL (MANUAL DIFF)
[2022-10-23 02:10] LABS: Troponin I < 0.01 ng/ml (0.00-0.034)
[2022-10-23 02:11] LABS: Microscopic, Urine URINE MICROSCOPIC (MICROSCOPIC)
[2022-10-23 02:20] LABS: Blood, Urine Negative (Negative); Color,Urine YELLOW (Yellow); Glucose,Urine (UA) Negative (Negative); Ketones,Urine TRACE (Negative); Leukocyte Esterase,Urine Negative (Negative); Nitrate,Urine Negative (Negative); PH,Urine 5.5 (5.0-8.5); Protein,Urine TRACE (Negative); Specific Gravity, Urine >= 1.030 (1.005-1.030); Urobilinogen,Urine 0.2 EU/dl (0.2)
[2022-10-23 02:34] LABS: Appearance,Urine Slightly Cloudy (Clear); Bilirubin,Urine Negative (Negative)
[2022-10-23 02:35] LABS: Bacteria,Urine 1+ /lpf; Calcium Oxalate Crystals,Urine Trace /lpf; Mucus,Urine 1+ /lpf; RBC,Urine Occasional #/hpf (0-3); WBC,Urine Occasional #/hpf (0-3)
--- NOTE | 2022-10-23 03:06 | XR_ITS ---
PROCEDURE INFORMATION: Exam: XR Chest Exam date and time: 10/23/2022 3:23 AM Age: 77 years old Clinical indication: Device placement; Ng tube; Prior surgery; Additional info: Ng tube placement TECHNIQUE: Imaging protocol: Radiologic exam of the chest. Views: 1 view. COMPARISON: CR XR CHEST PORTABLE 10/23/2022 2:07 AM FINDINGS: Tubes, catheters and devices: Suction-type transesophageal enteric tube in place with side hole at the gastroesophageal junction and tip projecting over the gastric body. Lungs: No acute airspace consolidation. No appreciable pulmonary edema. Bibasal subsegmental atelectasis noted. Pleural spaces: No pleural effusion. No pneumothorax. Heart/Mediastinum: Cardiomediastinal silouhette is unchanged. Bones/joints: No evidence of acute osseous abnormality. IMPRESSION: Suction-type transesophageal enteric tube in place with side hole at the gastroesophageal junction and tip projecting over the gastric body. Consider advancing 4-5 cm to decrease risk of esophageal mucosal injury.
[2022-10-23 03:37] LABS: Lymphocytes % 15 % (10-50); Neutrophils % 85 % (42-76); Platelet Estimate Normal; RBC Morphology Normal; Total Cells Counted 100
[2022-10-23 04:05] LABS: Coronavirus 19, PCR Not Detected (NotDetected); Influenza A, PCR Not Detected (NotDetected); Influenza B, PCR Not Detected (NotDetected)
--- NOTE | 2022-10-23 05:04 | PC.NURSE ---
Pt arrived to floor via stretcher @ [id number].
[2022-10-23 05:24] LABS: Troponin I < 0.01 ng/ml (0.00-0.034)
--- NOTE | 2022-10-23 06:01 | EXP.SURG.CON ---
History of Present Illness *Admission Date: 10/23/22 *Reason for visit:: Bowel obstruction *History of present illness: Patient is a 77-year-old female with history of coronary artery disease, hypertension, coronary stenting, COPD, pulmonary hypertension, history of atrial fibrillation, obstructive sleep apnea. She had undergone laparotomy for bowel obstruction approximately 18 years ago. She had had recurrent episodes of bowel obstruction which had been managed nonoperatively. She had been admitted on 01/30/2022 with a bowel obstruction. She required laparotomy with extensive lysis of adhesions by Dr. Hickman at that time. There was concern for possible recurrent obstruction given the findings. She had a recurrent bowel obstruction and was admitted 02/15/2022 until 02/18/2022 which was managed nonoperatively. She presented to the emergency department early this morning with complaints of nausea/vomiting, and diarrhea. She actually states that she has been having abdominal pain for several months. She had been seen in the emergency department about 1 week ago and had a CT scan performed at that time which revealed no acute findings. Postoperative changes of chronically dilated small bowel loop within the pelvis appears stable since the comparison studies. No bowel obstruction. She has no new abdominal pains. However she began vomiting a couple hours prior to arrival to the emergency department early this morning. She has chronic diarrhea and chronic abdominal pain which has not changed in character. Work-up included CT scan which revealed findings of small bowel obstruction with 5 cm length transition zone in the right lower quadrant just proximal to the small bowel anastomosis. The proximal extent of this narrowed small bowel suggest some wall thickening which may represent inflammation. . She was admitted for inpatient management and surgical consultation. [facility] Disclaimer: The information contained in this section may have been updated after the patient was seen, as this information can be updated by other users. Medical History (Updated 10/23/22 @ 05:33 by Latonya Guallpa RN) Chest pain Fatigue History of chest pain History of COVID-19 History of gastroesophageal reflux (GERD) KM (obstructive sleep apnea) Pneumonia Small intestine obstruction SOB (shortness of breath) on exertion Surgical History (Updated 10/23/22 @ 05:33 by Latonya Guallpa RN) History of colon resection History of colonoscopy History of hysterectomy Family History (Updated 10/23/22 @ 05:33 by Latonya Guallpa RN) Family history of GERD Family history of cancer Coronary artery disease Family history of hypertension Family history of diabetes mellitus type II Family history of myocardial infarction Family history of hyperlipidemia Social History (Updated 10/23/22 @ 05:33 by Latonya Guallpa RN) Smoking Status: Former smoker pack-years: 50 second hand exposure: No alcohol intake: never counseling provided: none substance use type: denies use current occupational status: retired Travel in the last 8 weeks: None household members: none housing: house current occupational exposures/hazards: No caffeine: Yes Meds Home Medications and Allergies Home Medications Medication Instructions Recorded Confirmed Type cholecalciferol(vit D3) 1,000 1 tab PO DAILY Supplement 10/02/19 10/23/22 History unit-vit K2 90 mcg disintegrating tablet calcium carbonate 600 mg-vitamin 1 tab PO DAILY Supplement 10/22/21 10/23/22 History D3 20 mcg (800 unit) chewable tablet (Caltrate 600 plus D) fluticasone propionate 50 1 spray intranasal DAILY allergies 10/22/21 10/23/22 History mcg/actuation nasal spray,suspension metoprolol succinate 25 mg 25 mg PO DAILY Hypertension 10/22/21 10/23/22 History tablet,extended release 24 hr nitroglycerin 0.4 mg sublingual 0.4 mg sublingual Q5M PRN chest 11/03/21 10/23/22 Rx tablet p
--- NOTE | 2022-10-23 07:35 | HMH.PHAINT1 ---
Pharmacy Intervention Comments: MEDICATION RECONCILIATION COMPLETED ON PATIENT USING EXTERNAL FILL HISTORY FROM PHARMACY. -ALEX BOBO, RAFID
--- NOTE | 2022-10-23 09:04 | EXP.HP ---
History of Present Illness *Admission Date: 10/23/22 *Reason for visit:: Vomiting and abdominal pain *History of present illness: Patient is a 77-year-old female with history of coronary artery disease, hypertension, coronary stenting, COPD, pulmonary hypertension, history of atrial fibrillation, obstructive sleep apnea. She had undergone laparotomy for bowel obstruction approximately 18 years ago. She had had recurrent episodes of bowel obstruction which had been managed nonoperatively. She had been admitted on 01/30/2022 with a bowel obstruction. She required laparotomy with extensive lysis of adhesions by Dr. Hickman at that time. There was concern for possible recurrent obstruction given the findings. She had a recurrent bowel obstruction and was admitted 02/15/2022 until 02/18/2022 which was managed nonoperatively. She presented to the emergency department early this morning with complaints of nausea/vomiting, and diarrhea. She actually states that she has been having abdominal pain for several months. She had been seen in the emergency department about 1 week ago and had a CT scan performed at that time which revealed no acute findings. Postoperative changes of chronically dilated small bowel loop within the pelvis appears stable since the comparison studies. No bowel obstruction. She has no new abdominal pains. However she began vomiting a couple hours prior to arrival to the emergency department early this morning. She has chronic diarrhea and chronic abdominal pain which has not changed in character. Work-up included CT scan which revealed findings of small bowel obstruction with 5 cm length transition zone in the right lower quadrant just proximal to the small bowel anastomosis. The proximal extent of this narrowed small bowel suggest some wall thickening which may represent inflammation. . She was admitted for inpatient management and surgical consultation. Above note per surgery consult. Appreciate input and consultation. Patient notes her back still hurts. Had had pain management appointment scheduled. Breathing has been stable. Patient is a long history of emphysema and is on a combination LABA/LAMA as an outpatient [facility] Disclaimer: The information contained in this section may have been updated after the patient was seen, as this information can be updated by other users. Medical History (Updated 10/23/22 @ 05:33 by Latonya Guallpa RN) Chest pain Fatigue History of chest pain History of COVID-19 History of gastroesophageal reflux (GERD) KM (obstructive sleep apnea) Pneumonia Small intestine obstruction SOB (shortness of breath) on exertion Surgical History (Updated 10/23/22 @ 05:33 by Latonya Guallpa RN) History of colon resection History of colonoscopy History of hysterectomy Family History (Updated 10/23/22 @ 05:33 by Latonya Guallpa RN) Family history of GERD Family history of cancer Coronary artery disease Family history of hypertension Family history of diabetes mellitus type II Family history of myocardial infarction Family history of hyperlipidemia Social History (Updated 10/23/22 @ 05:33 by Latonya Guallpa RN) Smoking Status: Former smoker pack-years: 50 second hand exposure: No alcohol intake: never counseling provided: none substance use type: denies use current occupational status: retired Travel in the last 8 weeks: None household members: none housing: house current occupational exposures/hazards: No caffeine: Yes Review of Systems Review of Systems Review of systems:: pertinent systems reviewed and negative unless documented below Meds Home Medications and Allergies Home Medications Medication Instructions Recorded Confirmed Type cholecalciferol(vit D3) 1,000 1 tab PO DAILY Supplement 10/02/19 10/23/22 History unit-vit K2 90 mcg disintegrating tablet calcium carbonate 600 mg-vitamin 1 tab PO DAILY Supplement 10/22/21 10/23/22 History D
[2022-10-23 09:37] LABS: Troponin I < 0.01 ng/ml (0.00-0.034)
--- NOTE | 2022-10-23 13:56 | DIET.NUTRFU ---
Patient is currently NPO, hx of weight loss. This is her 3rd visit this year for abdominal pain with nonsx intervention. She has lost 15# during this time. Last admit she tried boost clear during stay to increase her nutritional intake. She would like them started when medically feasible
--- NOTE | 2022-10-23 15:17 | PC.NURSE ---
RESP CARE NOTE: Attempted to do sputum induction with patient, but she refused at this time. Stating she is too irratated at this time, and wants to wait until she is more settled. Resp will return later and attempt at that time.
[2022-10-24] VITALS (7 sets, daily range): BP systolic 127–155; BP diastolic 67–81; PULSE 71–104; RESP 16–20; TEMP 36.6–37.3; O2SAT 93–95; BMI 20.6
--- NOTE | 2022-10-24 06:55 | PC.NURSE ---
PATIENT HAS NOT HAD ANY N/V. N/G TO ILWS. SECRETIONS DARK GREENISH-BROWN. ABDOMEN DISTENDED AND SOFT, HYPOACTIVE BOWEL SOUNDS X 4. REMAINS NPO.
--- NOTE | 2022-10-24 09:37 | EXP.ACUTE.PN ---
Subjective *Date: 10/24/22 *Time: 09:37 Interval history: Patient feels better this morning. She had 2 fairly large bowel movements overnight and her belly has decompressed somewhat. She has a sore throat from her NG tube. She is in better spirits today. Medical Exam Vital signs and Labs for Last 24 Hours: Vital Signs Temp Pulse Pulse Resp BP Pulse Ox 10/24/22 08:00 97.9 F 92 H 16 140/77 93 L 10/24/22 04:00 78 10/24/22 04:00 98.3 F 104 H 18 127/78 94 L 10/24/22 00:00 90 10/23/22 23:58 97.8 F 94 H 20 115/61 93 L 10/23/22 20:00 83 10/23/22 20:00 94 L 10/23/22 20:00 98.1 F 79 18 121/70 94 L 10/23/22 16:00 60 10/23/22 12:00 80 10/23/22 16:00 98.0 F 93 H 16 132/77 96 10/23/22 12:00 97.7 F 95 H 14 145/74 H 95 Intake and Output 10/23/22 10/24/22 10/24/22 19:59 03:59 11:59 Intake Total 0 / 987 987 / 987 Output Total 800 / 1400 600 / 1400 Balance -800 / -413 387 / -413 Intake: Intake, Oral Amount 0 / 0 Intake, Total IV Amount 987 / 987 0.9 % Sodium Chloride 1,000 ml 987 / 987 @ 100 mls/hr IV .Q10H [facility] Rx#: [id number] Output: Output, Urine Amount 0 / 600 600 / 600 Output, Gastric Drainage Amount 800 / 800 Right Nare 800 / 800 Other: Number of Unmeasured Voids 1 0 Weight 123 lb 14.397 oz Patient Weight 10/24/22 11:59 Weight 123 lb 14.397 oz Laboratory Results - last 24 hr 10/23/22 08:41: Troponin I < 0.01 I & O for Labs for Last 24 Hours: Intake & Output 10/21/22 10/22/22 10/23/22 10/24/22 11:59 11:59 11:59 11:59 Intake Total 0 / 0 987 / 987 Output Total 1400 / 1400 Balance 0 / 0 -413 / -413 Weight 121 lb 4.068 oz 123 lb 14.397 oz Microbiology Reports for the Last 24 Hours: Microbiology 10/23/22 01:58 Urine,Catheterized Urine Culture - Preliminary Comment:: Slight rhonchi in her chest but good air movement. NG tube in good position in the left nostril. Heart rate regular. Abdomen is much less protuberant and softer. Much less tender. Extremities are warm and well-perfused. Assessment and Plan *Assessment and plan (1) Small bowel obstruction: Status: Acute Category: Medical Code(s): K56.609 - Unspecified intestinal obstruction, unspecified as to partial versus complete obstruction (2) COPD (chronic obstructive pulmonary disease): Status: Chronic Qualifiers: COPD type: unspecified COPD Qualified Code(s): J44.9 - Chronic obstructive pulmonary disease, unspecified Category: Medical Code(s): J44.9 - Chronic obstructive pulmonary disease, unspecified (3) Pulmonary hypertension: Status: Chronic Category: Medical Code(s): I27.20 - Pulmonary hypertension, unspecified Plan Plan for attempt at nonoperative management of small bowel obstruction with nasogastric decompression, bowel rest, serial abdominal examinations and radiographs. It is possible the patient could require surgery. Above plan per surgery. Agree with this plan. Start nebulizer treatments and pain management and fluids. Plan addendum for 10/24/2022: Nice improvement after bowel movement. Will defer to surgery for discussion about further imaging or removal of NG tube. Continue nebs and pain management for back pain/belly pain. Check electrolytes today.
[2022-10-24 10:27] LABS: Chloride 108 mmol/L (98-107); Potassium 3.8 mmoL/L (3.5-5.1); Sodium 141 mmol/L (136-145)
[2022-10-24 10:30] LABS: Anion Gap 13.8 mEq/L (5-15); Blood Urea Nitrogen 32 mg/dl (7-17); Carbon Dioxide 23 mmol/L (22.0-30.0); Creatinine Clearance Estimated 42 mL/min (50-200); Estimated Glomerular Filt Rate 61 ml/min (>60); GFR (African American) 73 ML/MIN (>60); Glucose 90 mg/dl (74-100)
--- NOTE | 2022-10-24 10:40 | XR_ITS ---
PROCEDURE INFORMATION: Exam: XR Complete Acute Abdomen Series Including Chest Exam date and time: 10/24/2022 10:51 AM Age: 77 years old Clinical indication: Constipation and other: Bowel obs; Additional info: Bowel obstruction TECHNIQUE: Imaging protocol: Radiologic exam. Complete acute abdomen series, including 2 or more views of the abdomen and a single view chest. COMPARISON: 1. CR XR CHEST PORTABLE 10/23/2022 3:[address] ABDOMEN PELVIS W CON 10/23/2022 2:20 AM FINDINGS: Tubes, catheters and devices: Nasogastric tube to the gastric body. Lungs: Normal. No consolidation. Pleural spaces: Normal. No pleural effusions. No pneumothorax. Heart/Mediastinum: Normal. No cardiomegaly. Gastrointestinal tract: Continued distention of small bowel loops, with gaseous distention of one loop measuring 8 mm. Intraperitoneal space: Normal. No free air. Organs: Residual contrast in the urinary bladder. Previous cholecystectomy. Bones/joints: Normal. No acute fracture. Soft tissues: Normal. IMPRESSION: Continued distention of small bowel loops, with gaseous distention of one loop measuring 8 mm.
--- NOTE | 2022-10-24 11:02 | EXP.SURG.PN ---
Subjective Patient reports: feels better and bowel movement Narrative: Patient states she had a couple of large bowel movements. Feels better. 800cc NG output. Exam Data for Last 24 hours Vital signs and Labs for Last 24 Hours: Temp Pulse Resp BP Pulse Ox 97.9 F 92 H 16 140/77 93 L 10/24/22 08:00 10/24/22 08:00 10/24/22 08:00 10/24/22 08:00 10/24/22 08:00 Laboratory Results - last 24 hr 10/24/22 10:03: Sodium 141, Potassium 3.8, Chloride 108 H, Carbon Dioxide 23, Anion Gap 13.8, BUN 32 H, Creatinine 0.90 D, Estimated Creat Clear 42, Estimated GFR 61, Est GFR ( Amer) 73 D, Glucose 90, Calcium 9.0 I & O for Last 24 hours: Intake & Output 10/21/22 10/22/22 10/23/22 10/24/22 11:59 11:59 11:59 11:59 Intake Total 0 / 0 987 / 987 Output Total 1400 / 1400 Balance 0 / 0 -413 / -413 Weight 121 lb 4.068 oz 123 lb 14.397 oz Microbiology Reports for the Last 24 Hours: Microbiology 10/23/22 01:58 Urine,Catheterized Urine Culture - Preliminary *Routine Abdominal Exam Comments: Somewhat distended. Softer. No tenderness. Progress Note: A&P Assessment and plan (1) Small bowel obstruction: Status: Acute Assessment and plan: Check acute abdominal series. May be able to work towards removing NG by placing to gravity. (2) COPD (chronic obstructive pulmonary disease): Status: Chronic (3) Pulmonary hypertension: Status: Chronic
--- NOTE | 2022-10-24 18:53 | PC.NURSE ---
Spoke with Dr. Martinez about pt allowed to have 2 Popsicle every 4 hours.
[2022-10-25] VITALS: PULSE 60
--- NOTE | 2022-10-25 02:42 | PC.NURSE ---
N/G TO ILWS ORDERED. SECRETIONS DARK GREEN- BROWNISH. TOLERATES POPCICLES, NPO OTHERWISE. CAN HAVE Q 4 HRS PER REQUESTS. DENIES PAIN. ABDOMEN SOFT/DISTENDED/ BOWEL SOUNDS X 4 QUADS.
[2022-10-25 04:00] VITALS: BP 141/62; PULSE 60; PULSE 85; RESP 18; TEMP 36.9; O2SAT 94
--- NOTE | 2022-10-25 07:19 | XR_ITS ---
PROCEDURE INFORMATION: Exam: XR Complete Acute Abdomen Series Including Chest Exam date and time: 10/25/2022 7:43 AM Age: 77 years old Clinical indication: Condition or disease; Intestinal condition; Obstruction; Additional info: Bowel obstruction- follow up-- TECHNIQUE: Imaging protocol: Radiologic exam. Complete acute abdomen series, including 2 or more views of the abdomen and a single view chest. COMPARISON: CR XR ACUTE ABDOMEN SERIES 10/24/2022 10:51 AM FINDINGS: Tubes, catheters and devices: Termination of feeding tube in the proximal stomach. Lungs: Emphysematous change and interstitial prominence. Pleural spaces: No pleural effusion. Heart/Mediastinum: No cardiomegaly. Gastrointestinal tract: Marked interval improvement in small bowel dilatation in the setting of previously documented small-bowel obstruction. Intraperitoneal space: Surgical clips in the right upper quadrant. Organs: Contrast in the bladder from recent CT. Vasculature: Vascular calcification. Bones/joints: Osteopenia, degenerative change, and scoliosis. Old fracture of the proximal left humerus. IMPRESSION: Marked interval improvement in small bowel dilatation in the setting of previously documented small-bowel obstruction.
[2022-10-25 08:00] VITALS: BP 133/64; PULSE 62; PULSE 71; RESP 16; TEMP 36.6; O2SAT 94
[2022-10-25 08:05] LABS: Basophils % 0.4 % (0.1-2.0); Eosinophils % 0.4 % (0.1-12.0); Hematocrit 30.5 % (37.0-47.0); Hemoglobin 10.1 g/dL (12.2-16.2); Lymphocytes # 0.8 K/mm3 (0.7-4.5); Lymphocytes % 12.3 % (10-50); Mean Corpuscular HGB Conc 33.1 g/dL (31.8-35.4); Mean Corpuscular Hemoglobin 29.2 pg (27.0-31.2); Mean Corpuscular Volume 88.3 fl (81-99); Mean Platelet Volume 9.4 fl (7.4-10.4); Monocytes # 0.4 K/mm3 (0.1-1.0); Monocytes % 5.4 % (1.7-9.3); Neutrophils # 5.4 K/mm3 (1.8-7.8); Neutrophils % 81.5 % (37.0-80.0); Platelet Count 183 K/mm3 (142-424); Red Blood Count 3.45 M/mm3 (4.20-5.40); Red Cell Distribution Width 13.8 % (11.5-17.5); White Blood Count 6.6 K/mm3 (4.8-10.8)
[2022-10-25 08:14] LABS: Chloride 110 mmol/L (98-107); Potassium 3.3 mmoL/L (3.5-5.1); Sodium 144 mmol/L (136-145)
[2022-10-25 08:17] LABS: Anion Gap 16.3 mEq/L (5-15); Blood Urea Nitrogen 30 mg/dl (7-17); Calcium 9.1 mg/dl (8.4-10.2); Carbon Dioxide 21 mmol/L (22.0-30.0); Creatinine Clearance Estimated 42 mL/min (50-200); Estimated Glomerular Filt Rate 70 ml/min (>60); GFR (African American) 84 ML/MIN (>60); Glucose 88 mg/dl (74-100)
--- NOTE | 2022-10-25 08:42 | EXP.ACUTE.PN ---
Subjective *Date: 10/25/22 *Time: 08:42 Interval history: Patient did well with some popsicles yesterday. Feels much better after bowel movements and flatus. Surgical note reviewed. Consult appreciated. Medical Exam Vital signs and Labs for Last 24 Hours: Vital Signs Temp Pulse Pulse Resp BP Pulse Ox 10/25/22 00:00 60 10/25/22 04:00 60 10/25/22 04:00 98.4 F 85 18 141/62 H 94 L 10/24/22 23:43 98.7 F 71 18 143/67 H 93 L 10/24/22 20:00 90 10/24/22 20:00 94 L 10/24/22 20:00 99.2 F 94 H 20 155/81 H 94 L 10/24/22 16:00 74 10/24/22 12:00 78 10/24/22 16:00 98.1 F 76 20 132/67 95 10/24/22 12:00 97.8 F 99 H 16 144/69 H 93 L Intake and Output 10/24/22 10/25/22 10/25/22 19:59 03:59 11:59 Intake Total 140 / 2425 2285 / 2425 Output Total 50 / 1600 1100 / 1600 450 / 1600 Balance -50 / 825 -960 / 825 1835 / 825 Intake: Intake, Oral Amount 140 / 140 Infusion Intake 2285 / 2285 0.9 % Sodium Chloride 1,000 ml 2285 / 2285 @ 150 mls/hr IV .Q6H40M [facility] Rx# :[id number] Output: Output, Urine Amount 50 / 550 500 / 550 Output, Gastric Drainage Amount 600 / 1050 450 / 1050 Right Nare 600 / 1050 450 / 1050 Other: Number of Unmeasured Voids 0 Number of Bowel Movements 1 Laboratory Results - last 24 hr 10/23/22 01:58: Urine Color Yellow, Urine Appearance Slightly cloudy, Urine pH 5.5, Ur Specific [place] >= 1.030, Urine Protein Trace, Urine Glucose (UA) Negative, Urine Ketones Trace, Urine Blood Negative, Urine Nitrate Negative, Urine Bilirubin Negative, Urine Urobilinogen 0.2, Ur Leukocyte Esterase Negative, Urine RBC Occasional, Urine WBC Occasional, Calcium Oxalate Crystal Trace, Urine Bacteria 1+, Urine Mucus 1+ 10/24/22 10:03: Sodium 141, Potassium 3.8, Chloride 108 H, Carbon Dioxide 23, Anion Gap 13.8, BUN 32 H, Creatinine 0.90 D, Estimated Creat Clear 42, Estimated GFR 61, Est GFR ( Amer) 73 D, Glucose 90, Calcium 9.0 10/25/22 07:46: WBC 6.6, RBC 3.45 L D, Hgb 10.1 L, Hct 30.5 L, MCV 88.3, MCH 29.2, MCHC 33.1, RDW 13.8, Plt Count 183 D, MPV 9.4, Neut % (Auto) 81.5 H, Lymph % (Auto) 12.3, [place] % (Auto) 5.4, Eos % (Auto) 0.4, Baso % (Auto) 0.4, Neut # (Auto) 5.4, Lymph # (Auto) 0.8, [place] # (Auto) 0.4, Eos # (Auto) 0.0, Baso # (Auto) 0.0 10/25/22 07:46: Sodium 144, Potassium 3.3 L, Chloride 110 H, Carbon Dioxide 21 L, Anion Gap 16.3 H, BUN 30 H, Creatinine 0.80, Estimated Creat Clear 42, Estimated GFR 70, Est GFR ( Amer) 84, Glucose 88, Calcium 9.1 I & O for Labs for Last 24 Hours: Intake & Output 10/22/22 10/23/22 10/24/22 10/25/22 11:59 11:59 11:59 11:59 Intake Total 0 / 0 987 / 987 2425 / 2425 Output Total 1400 / 1450 1600 / 1600 Balance 0 / 0 -413 / -463 825 / 825 Weight 121 lb 4.068 oz 123 lb 14.397 oz Microbiology Reports for the Last 24 Hours: Microbiology 10/24/22 11:51 Sputum - Expectorated Sputum Gram Stain - Final 10/24/22 11:51 Sputum - Expectorated Sputum Sputum Culture - Preliminary 10/23/22 01:58 Urine,Catheterized Urine Culture - Preliminary Gram Positive Cocci Gram Positive Cocci#2 Comment:: Patient is pleasant, talkative. NG tube draining dark fluid. Heart rate regular. Lungs have good air movement. Abdomen is softer. No bowel sounds. Extremities are warm and well-perfused Assessment and Plan *Assessment and plan (1) Small bowel obstruction: Status: Acute Category: Medical Code(s): K56.609 - Unspecified intestinal obstruction, unspecified as to partial versus complete obstruction (2) COPD (chronic obstructive pulmonary disease): Status: Chronic Qualifiers: COPD type: unspecified COPD Qualified Code(s): J44.9 - Chronic obstructive pulmonary disease, unspecified Category: Medical Code(s): J44.9 - Chronic obstructive pulmonary disease, uns
--- NOTE | 2022-10-25 11:06 | P.PN_ITS ---
Subjective Narrative: Patient without new complaints. She does interestingly states that she has some abdominal soreness when coughing. I did start her on some simethicone yesterday. She has appreciable NG output. Acute abdominal series reveals impression of marked interval improvement in small bowel dilatation in the setting of previously documented small bowel obstruction. Exam Data for Last 24 hours Vital signs and Labs for Last 24 Hours: Temp Pulse Resp BP Pulse Ox 97.8 F 62 16 133/64 94 L 10/25/22 08:00 10/25/22 08:00 10/25/22 08:00 10/25/22 08:00 10/25/22 08:00 Laboratory Results - last 24 hr 10/23/22 01:58: Urine Color Yellow, Urine Appearance Slightly cloudy, Urine pH 5.5, Ur Specific [place] >= 1.030, Urine Protein Trace, Urine Glucose (UA) Negative, Urine Ketones Trace, Urine Blood Negative, Urine Nitrate Negative, Urine Bilirubin Negative, Urine Urobilinogen 0.2, Ur Leukocyte Esterase Negative, Urine RBC Occasional, Urine WBC Occasional, Calcium Oxalate Crystal Trace, Urine Bacteria 1+, Urine Mucus 1+ 10/25/22 07:46: WBC 6.6, RBC 3.45 L D, Hgb 10.1 L, Hct 30.5 L, MCV 88.3, MCH 29.2, MCHC 33.1, RDW 13.8, Plt Count 183 D, MPV 9.4, Neut % (Auto) 81.5 H, Lymph % (Auto) 12.3, [place] % (Auto) 5.4, Eos % (Auto) 0.4, Baso % (Auto) 0.4, Neut # (Auto) 5.4, Lymph # (Auto) 0.8, [place] # (Auto) 0.4, Eos # (Auto) 0.0, Baso # (Auto) 0.0 10/25/22 07:46: Sodium 144, Potassium 3.3 L, Chloride 110 H, Carbon Dioxide 21 L , Anion Gap 16.3 H, BUN 30 H, Creatinine 0.80, Estimated Creat Clear 42, Estimated GFR 70, Est GFR ( Amer) 84, Glucose 88, Calcium 9.1 I & O for Last 24 hours: Intake & Output 10/22/22 10/23/22 10/24/22 10/25/22 11:59 11:59 11:59 11:59 Intake Total 0 / 0 987 / 987 2665 / 2665 Output Total 1400 / 1450 1600 / 1600 Balance 0 / 0 -413 / -463 1065 / 1065 Weight 121 lb 4.068 oz 123 lb 14.397 oz Microbiology Reports for the Last 24 Hours: Microbiology 10/23/22 08:49 Blood Blood Culture - Preliminary NO GROWTH AFTER 48 HOURS 10/23/22 08:49 Blood Blood Culture - Preliminary NO GROWTH AFTER 48 HOURS 10/24/22 11:51 Sputum - Expectorated Sputum Gram Stain - Final 10/24/22 11:51 Sputum - Expectorated Sputum Sputum Culture - Preliminary 10/23/22 01:58 Urine,Catheterized Urine Culture - Preliminary Gram Positive Cocci Gram Positive Cocci#2 *Routine Abdominal Exam Comments: Distended. No appreciable tenderness Progress Note: A&P Assessment and plan (1) Small bowel obstruction: Status: Acute Assessment and plan: I reviewed the images of her acute abdominal series. It does appear that she has some colon gas. However she has a persistently dilated relatively large loop of bowel in the mid abdomen. Given the appearance of the images and her persistent abdominal distention along with appreciable NG output I will continue NG decompression at this time. Plan to obtain small bowel follow-through tomorrow morning through her NG tube for diagnostic and hopefully therapeutic purposes. However, I feel there is a relatively high likelihood she could require surgical intervention. This would carry some morbidity due to her medical conditions and previous surgical history. (2) COPD (chronic obstructive pulmonary disease): Status: Chronic (3) Pulmonary hypertension: Status: Chronic
[2022-10-25 12:00] VITALS: BP 140/62; PULSE 62; PULSE 72; RESP 16; TEMP 36.7; O2SAT 94
[2022-10-25 16:00] VITALS: BP 145/61; PULSE 62; PULSE 64; RESP 16; TEMP 36.8; O2SAT 95
--- NOTE | 2022-10-25 18:58 | PC.NURSE ---
PT HAS BEEN DONE WELL WITH THE POPSICLES. NG OUTPUT 1100. IV IN RT FA INFILTRATED, UNABLE TO GET AN IV, PT REF IV STICK AT THIS TIME. ALERT X4, NO BM THIS SHIFT. CB AND PERSONAL ITEMS WITHIN REACH. NO QUESTIONS AT THIS TIME.
[2022-10-25 20:00] VITALS: BP 144/67; PULSE 60; PULSE 65; RESP 18; TEMP 36.7; O2SAT 95
[2022-10-26] VITALS (9 sets, daily range): BP systolic 130–160; BP diastolic 68–79; PULSE 60–110; RESP 16–24; TEMP 36.4–37.3; O2SAT 95–98
--- NOTE | 2022-10-26 06:17 | P.PN_ITS ---
Subjective Patient reports: no new complaints and feels better Narrative: Patient states that she feels somewhat better. Exam Data for Last 24 hours Vital signs and Labs for Last 24 Hours: Temp Pulse Resp BP Pulse Ox 97.7 F 71 16 147/74 H 96 10/26/22 04:00 10/26/22 04:00 10/26/22 04:00 10/26/22 04:00 10/26/22 04:00 Laboratory Results - last 24 hr 10/25/22 07:46: WBC 6.6, RBC 3.45 L D, Hgb 10.1 L, Hct 30.5 L, MCV 88.3, MCH 29.2, MCHC 33.1, RDW 13.8, Plt Count 183 D, MPV 9.4, Neut % (Auto) 81.5 H, Lymph % (Auto) 12.3, [place] % (Auto) 5.4, Eos % (Auto) 0.4, Baso % (Auto) 0.4, Neut # (Auto) 5.4, Lymph # (Auto) 0.8, [place] # (Auto) 0.4, Eos # (Auto) 0.0, Baso # (Auto) 0.0 10/25/22 07:46: Sodium 144, Potassium 3.3 L, Chloride 110 H, Carbon Dioxide 21 L , Anion Gap 16.3 H, BUN 30 H, Creatinine 0.80, Estimated Creat Clear 42, Estimated GFR 70, Est GFR ( Amer) 84, Glucose 88, Calcium 9.1 I & O for Last 24 hours: Intake & Output 10/23/22 10/24/22 10/25/22 10/26/22 11:59 11:59 11:59 11:59 Intake Total 0 / 0 987 / 987 2665 / 2665 540 / 540 Output Total 1400 / 1450 1600 / 1700 3300 / 3300 Balance 0 / 0 -413 / -463 1065 / 965 -2760 / -2760 Weight 121 lb 4.068 oz 123 lb 14.397 oz Microbiology Reports for the Last 24 Hours: Microbiology 10/23/22 08:49 Blood Blood Culture - Preliminary NO GROWTH AFTER 48 HOURS 10/23/22 08:49 Blood Blood Culture - Preliminary NO GROWTH AFTER 48 HOURS 10/24/22 11:51 Sputum - Expectorated Sputum Gram Stain - Final 10/24/22 11:51 Sputum - Expectorated Sputum Sputum Culture - Preliminary 10/23/22 01:58 Urine,Catheterized Urine Culture - Preliminary Gram Positive Cocci Gram Positive Cocci#2 *Routine Abdominal Exam Abdominal: Present soft; Absent tenderness Comments: Abdomen is slightly distended. No tenderness. Progress Note: A&P Assessment and plan (1) Small bowel obstruction: Status: Acute Assessment and plan: Small bowel follow-through today. Additional management pending findings, potential need for surgery. (2) COPD (chronic obstructive pulmonary disease): Status: Chronic (3) Pulmonary hypertension: Status: Chronic
[2022-10-26 06:50] LABS: Basophils % 0.2 % (0.1-2.0); Eosinophils # 0.1 K/mm3 (0.0-0.4); Eosinophils % 0.9 % (0.1-12.0); Hematocrit 30.8 % (37.0-47.0); Hemoglobin 10.2 g/dL (12.2-16.2); Lymphocytes # 0.9 K/mm3 (0.7-4.5); Lymphocytes % 8.8 % (10-50); Mean Platelet Volume 9.4 fl (7.4-10.4); Monocytes # 0.4 K/mm3 (0.1-1.0); Monocytes % 3.7 % (1.7-9.3); Neutrophils # 8.5 K/mm3 (1.8-7.8); Neutrophils % 86.5 % (37.0-80.0); Platelet Count 188 K/mm3 (142-424); Red Blood Count 3.51 M/mm3 (4.20-5.40); Red Cell Distribution Width 13.6 % (11.5-17.5); White Blood Count 9.8 K/mm3 (4.8-10.8)
[2022-10-26 07:01] LABS: MANUAL DIFFERENTIAL MANUAL DIFFERENTIAL (MANUAL DIFF)
[2022-10-26 07:05] LABS: Chloride 110 mmol/L (98-107)
[2022-10-26 07:06] LABS: Potassium 3.3 mmoL/L (3.5-5.1); Sodium 146 mmol/L (136-145)
[2022-10-26 07:09] LABS: Anion Gap 17.3 mEq/L (5-15); Blood Urea Nitrogen 29 mg/dl (7-17); Calcium 9.3 mg/dl (8.4-10.2); Carbon Dioxide 22 mmol/L (22.0-30.0); Creatinine Clearance Estimated 42 mL/min (50-200); Estimated Glomerular Filt Rate 81 ml/min (>60); GFR (African American) 98 ML/MIN (>60); Glucose 90 mg/dl (74-100)
--- NOTE | 2022-10-26 07:10 | FL_ITS ---
FINAL REPORT CLINICAL HISTORY: r/o sbo FINDINGS: SMALL BOWEL FOLLOW THROUGH HISTORY: . Acutegeneralized abdominal pain. Abnormal CT. Possible small bowel obstruction. PROCEDURE: . Gastrografin contrast was gently injected through the patient's existing nasogastric tube. Serial radiographs were obtained. Spot and overhead films were obtained. A total of 7 radiographs were obtained. FINDINGS: Preliminary biofuels technology manager film demonstrates the nasogastric tube to course below the diaphragm. There is mild dilatation of proximal small bowel loops. No transition point is identified. Contrast is identified in the colon on the 30 minute radiograph. IMPRESSION: No obstruction identified. Films reviewed , interpreted and dictated by Dr. Bull. Transcribed by Tad Robles PA-C. Reviewed, Interpreted and Dictated by Mino Bull III, MD Transcribed by EVELYN Newsome Authenticated and . [facility]
--- NOTE | 2022-10-26 07:33 | PC.NURSE ---
Pt has not voiced any c/o to staff. NG tube to r nare at 55cm. pt has had 1400cc out of ng tube. Call light within reach.
--- NOTE | 2022-10-26 08:14 | EXP.ACUTE.PN ---
Subjective *Date: 10/26/22 *Time: 08:14 Interval history: Patient's breathing has been good. She notes that with bowel movements and gas her back pain is also resolved. She feels better except she would very much like the NG tube out and to eat. However, surgical opinion is somewhat less optimistic. I discussed case with surgery. Appreciate notes and input as noted below above. Medical Exam Vital signs and Labs for Last 24 Hours: Vital Signs Temp Pulse Pulse Resp BP Pulse Ox 10/26/22 04:00 60 10/26/22 04:00 97.7 F 71 16 147/74 H 96 10/25/22 20:00 95 10/26/22 00:00 70 10/25/22 20:00 60 10/26/22 00:00 98.7 F 65 20 131/68 95 10/25/22 20:00 98.1 F 65 18 144/67 H 95 10/25/22 12:00 62 10/25/22 16:00 64 10/25/22 16:00 98.2 F 62 16 145/61 H 95 10/25/22 12:00 98.1 F 72 16 140/62 94 L Intake and Output 10/25/22 10/26/22 10/26/22 19:59 03:59 11:59 Intake Total 480 / 540 60 / 540 Output Total 1450 / 3300 900 / 3300 950 / 3300 Balance -970 / -2760 -840 / -2760 -950 / -2760 Intake: Intake, Oral Amount 480 / 540 60 / 540 Output: Output, Urine Amount 350 / 800 150 / 800 300 / 800 Output, Gastric Drainage Amount 1100 / 2500 750 / 2500 650 / 2500 Right Nare 1100 / 2500 750 / 2500 650 / 2500 Other: Number of Unmeasured Voids 0 0 Laboratory Results - last 24 hr 10/25/22 07:46: Sodium 144, Potassium 3.3 L, Chloride 110 H, Carbon Dioxide 21 L, Anion Gap 16.3 H, BUN 30 H, Creatinine 0.80, Estimated Creat Clear 42, Estimated GFR 70, Est GFR ( Amer) 84, Glucose 88, Calcium 9.1 10/26/22 06:43: WBC 9.8 D, RBC 3.51 L, Hgb 10.2 L, Hct 30.8 L, MCV 88.0, MCH 29.0, MCHC 33.0, RDW 13.6, Plt Count 188, MPV 9.4, Neut % (Auto) 86.5 H, Lymph % (Auto) 8.8 L, [place] % (Auto) 3.7, Eos % (Auto) 0.9, Baso % (Auto) 0.2, Neut # (Auto) 8.5 H, Lymph # (Auto) 0.9, [place] # (Auto) 0.4, Eos # (Auto) 0.1, Baso # (Auto) 0.0 10/26/22 06:43: Sodium 146 H, Potassium 3.3 L, Chloride 110 H, Carbon Dioxide 22, Anion Gap 17.3 H, BUN 29 H, Creatinine 0.70, Estimated Creat Clear 42, Estimated GFR 81, Est GFR ( Amer) 98, Glucose 90, Calcium 9.3 I & O for Labs for Last 24 Hours: Intake & Output 10/23/22 10/24/22 10/25/22 10/26/22 11:59 11:59 11:59 11:59 Intake Total 0 / 0 987 / 987 2665 / 2665 540 / 540 Output Total 1400 / 1450 1600 / 1700 3300 / 3300 Balance 0 / 0 -413 / -463 1065 / 965 -2760 / -2760 Weight 121 lb 4.068 oz 123 lb 14.397 oz Microbiology Reports for the Last 24 Hours: Microbiology 10/23/22 01:58 Urine,Catheterized Urine Culture - Final Streptococcus mitas 10/23/22 08:49 Blood Blood Culture - Preliminary NO GROWTH AFTER 48 HOURS 10/23/22 08:49 Blood Blood Culture - Preliminary NO GROWTH AFTER 48 HOURS 10/24/22 11:51 Sputum - Expectorated Sputum Gram Stain - Final 10/24/22 11:51 Sputum - Expectorated Sputum Sputum Culture - Preliminary Comment:: Patient is pleasant, talkative. NG tube draining dark fluid. Heart rate regular. Lungs have good air movement. Abdomen is softer. No bowel sounds. Extremities are warm and well-perfused Assessment and Plan *Assessment and plan (1) Small bowel obstruction: Status: Acute Category: Medical Code(s): K56.609 - Unspecified intestinal obstruction, unspecified as to partial versus complete obstruction (2) COPD (chronic obstructive pulmonary disease): Status: Chronic Qualifiers: COPD type: unspecified COPD Qualified Code(s): J44.9 - Chronic obstructive pulmonary disease, unspecified Category: Medical Code(s): J44.9 - Chronic obstructive pulmonary disease, unspecified (3) Pulmonary hypertension: Status: Chronic Category: Medical Code(s): I27.20 - Pulmonary hypertension, unspecified Plan Plan for attempt at nonoperative man
[2022-10-26 08:22] LABS: Lymphocytes % 10 % (10-50); Monocytes % 2 % (2-9); Neutrophils % 88 % (42-76); Platelet Estimate Normal; RBC Morphology Normal; Total Cells Counted 100
--- NOTE | 2022-10-26 09:09 | PC.NURSE ---
pt off floor at this time
--- NOTE | 2022-10-26 12:31 | EXP.SURG.PN ---
Subjective Patient reports: feels better Narrative: Patient has had several bowel movements and her abdomen is softer. Exam Data for Last 24 hours Vital signs and Labs for Last 24 Hours: Temp Pulse Resp BP Pulse Ox 97.6 F 79 16 160/76 H 96 10/26/22 08:00 10/26/22 08:00 10/26/22 08:00 10/26/22 08:00 10/26/22 08:00 Laboratory Results - last 24 hr 10/26/22 06:43: WBC 9.8 D, RBC 3.51 L, Hgb 10.2 L, Hct 30.8 L, MCV 88.0, MCH 29.0, MCHC 33.0, RDW 13.6, Plt Count 188, MPV 9.4, Neut % (Auto) 86.5 H, Lymph % (Auto) 8.8 L, [place] % (Auto) 3.7, Eos % (Auto) 0.9, Baso % (Auto) 0.2, Neut # (Auto) 8.5 H, Lymph # (Auto) 0.9, [place] # (Auto) 0.4, Eos # (Auto) 0.1, Baso # (Auto) 0.0, Total Counted 100, Neutrophils % (Manual) 88 H, Lymphocytes % (Manual) 10, Monocytes % (Manual) 2, Platelet Estimate Normal, RBC Morphology Normal 10/26/22 06:43: Sodium 146 H, Potassium 3.3 L, Chloride 110 H, Carbon Dioxide 22, Anion Gap 17.3 H, BUN 29 H, Creatinine 0.70, Estimated Creat Clear 42, Estimated GFR 81, Est GFR ( Amer) 98, Glucose 90, Calcium 9.3 I & O for Last 24 hours: Intake & Output 10/24/22 10/25/22 10/26/22 10/27/22 11:59 11:59 11:59 11:59 Intake Total 987 / 987 2665 / 2665 540 / 540 Output Total 1400 / 1450 1600 / 1700 3500 / 3500 Balance -413 / -463 1065 / 965 -2960 / -2960 Weight 123 lb 14.397 oz Microbiology Reports for the Last 24 Hours: Microbiology 10/24/22 11:51 Sputum - Expectorated Sputum Gram Stain - Final 10/24/22 11:51 Sputum - Expectorated Sputum Sputum Culture - Preliminary 10/23/22 01:58 Urine,Catheterized Urine Culture - Final Streptococcus mitas 10/23/22 08:49 Blood Blood Culture - Preliminary NO GROWTH AFTER 48 HOURS 10/23/22 08:49 Blood Blood Culture - Preliminary NO GROWTH AFTER 48 HOURS *Routine Abdominal Exam Abdominal: Absent distended Progress Note: A&P Assessment and plan (1) Small bowel obstruction: Status: Acute Assessment and plan: Small bowel follow-through shows no evidence of any obstruction. We will go ahead and remove NG tube and progress slowly. (2) COPD (chronic obstructive pulmonary disease): Status: Chronic (3) Pulmonary hypertension: Status: Chronic
--- NOTE | 2022-10-26 13:53 | PC.NURSE ---
pt laying in bed awake watching tv
--- NOTE | 2022-10-26 17:54 | PC.NURSE ---
pt has had 3 BM this shift
--- NOTE | 2022-10-26 18:37 | PC.NURSE ---
Pt is alert and oriented x4. NG removed per order. Pt has tolerated sips and chips. She had an episode of incontinence of bowels. No other complaints voiced. Bed is locked and in the lowest position, call light is within reach.
[2022-10-27] VITALS (7 sets, daily range): BP systolic 135–151; BP diastolic 63–75; PULSE 65–124; RESP 14–20; TEMP 36.6–37.1; O2SAT 95–97; BMI 19.1
--- NOTE | 2022-10-27 03:16 | PC.NURSE ---
Pt has been in the bed all shift, A/O X 4. Pt has been sipping on water and Ice chips. Pt has denied any nausea or stomach pain. Pt has a IV 20 G in right arm, patent, no s/sx of infection at site. Pt had a 25 beat run on tele earlier in shift. Pt states she feels fine. Pt denied Shortness of air, no chest pain. Pt lungs were clear, resp even and non labored. Pt was educated on plan of care, encouraged to report any needs to staff. Bed is locked in low position, call light in reach.
--- NOTE | 2022-10-27 07:56 | EXP.SURG.PN ---
Subjective Patient reports: no new complaints and feels better Narrative: Tolerated NG out. Wanting to eat. Exam Data for Last 24 hours Vital signs and Labs for Last 24 Hours: Temp Pulse Resp BP Pulse Ox 98.4 F 124 H 20 135/63 95 10/27/22 03:38 10/27/22 04:00 10/27/22 03:38 10/27/22 03:38 10/27/22 03:38 Laboratory Results - last 24 hr 10/26/22 06:43: Total Counted 100, Neutrophils % (Manual) 88 H, Lymphocytes % (Manual) 10, Monocytes % (Manual) 2, Platelet Estimate Normal, RBC Morphology Normal I & O for Last 24 hours: Intake & Output 10/24/22 10/25/22 10/26/22 10/27/22 11:59 11:59 11:59 11:59 Intake Total 987 / 987 2665 / 2665 540 / 540 1630 / 1630 Output Total 1400 / 1450 1600 / 1700 3500 / 3500 0 / 0 Balance -413 / -463 1065 / 965 -2960 / -2960 1630 / 1630 Weight 123 lb 14.397 oz 115 lb 2 oz Microbiology Reports for the Last 24 Hours: Microbiology 10/24/22 11:51 Sputum - Expectorated Sputum Gram Stain - Final 10/24/22 11:51 Sputum - Expectorated Sputum Sputum Culture - Preliminary 10/23/22 01:58 Urine,Catheterized Urine Culture - Final Streptococcus mitas *Routine Abdominal Exam Abdominal: Present soft; Absent tenderness Comments: Slight distension. Progress Note: A&P Assessment and plan (1) Small bowel obstruction: Status: Acute Assessment and plan: Clear liquid diet. (2) COPD (chronic obstructive pulmonary disease): Status: Chronic (3) Pulmonary hypertension: Status: Chronic
--- NOTE | 2022-10-27 08:04 | EXP.ACUTE.PN ---
Subjective *Date: 10/27/22 *Time: 08:04 Interval history: Patient did well overnight. No vomiting. She is hungry. Continues to pass gas. Medical Exam Vital signs and Labs for Last 24 Hours: Vital Signs Temp Pulse Pulse Resp BP Pulse Ox 10/27/22 04:00 124 H 10/27/22 03:38 98.4 F 70 20 135/63 95 10/26/22 20:20 70 10/27/22 00:00 70 10/26/22 20:00 72 10/26/22 23:45 98.8 F 65 20 130/71 95 10/26/22 19:30 98.5 F 69 24 149/79 H 96 10/26/22 16:00 110 H 10/26/22 16:00 99.1 F 90 18 146/74 H 95 10/26/22 12:00 60 10/26/22 12:00 98.1 F 67 18 147/73 H 98 Intake and Output 10/26/22 10/27/22 10/27/22 19:59 03:59 11:59 Intake Total 1630 / 1630 Output Total 0 / 0 0 / 0 Balance 0 / 1630 0 / 1630 1630 / 1630 Intake: Intake, Total IV Amount 1630 / 1630 0.9 % Sodium Chloride 1,000 ml 1630 / 1630 @ 150 mls/hr IV .Q6H40M [facility] Rx# :[id number] Output: Output, Urine Amount 0 / 0 0 / 0 Other: Number of Unmeasured Voids 1 1 Weight 115 lb 2 oz Patient Weight 10/27/22 11:59 Weight 115 lb 2 oz Laboratory Results - last 24 hr 10/26/22 06:43: Total Counted 100, Neutrophils % (Manual) 88 H, Lymphocytes % (Manual) 10, Monocytes % (Manual) 2, Platelet Estimate Normal, RBC Morphology Normal I & O for Labs for Last 24 Hours: Intake & Output 10/24/22 10/25/22 10/26/22 10/27/22 11:59 11:59 11:59 11:59 Intake Total 987 / 987 2665 / 2665 540 / 540 1630 / 1630 Output Total 1400 / 1450 1600 / 1700 3500 / 3500 0 / 0 Balance -413 / -463 1065 / 965 -2960 / -2960 1630 / 1630 Weight 123 lb 14.397 oz 115 lb 2 oz Microbiology Reports for the Last 24 Hours: Microbiology 10/24/22 11:51 Sputum - Expectorated Sputum Gram Stain - Final 10/24/22 11:51 Sputum - Expectorated Sputum Sputum Culture - Preliminary 10/23/22 01:58 Urine,Catheterized Urine Culture - Final Streptococcus mitas Comment:: Heart rate regular. Lungs have good air movement. Abdomen soft. No edema or clubbing. Moving all extremities well, neurologically intact Assessment and Plan *Assessment and plan (1) Small bowel obstruction: Status: Acute Category: Medical Code(s): K56.609 - Unspecified intestinal obstruction, unspecified as to partial versus complete obstruction (2) COPD (chronic obstructive pulmonary disease): Status: Chronic Qualifiers: COPD type: unspecified COPD Qualified Code(s): J44.9 - Chronic obstructive pulmonary disease, unspecified Category: Medical Code(s): J44.9 - Chronic obstructive pulmonary disease, unspecified (3) Pulmonary hypertension: Status: Chronic Category: Medical Code(s): I27.20 - Pulmonary hypertension, unspecified Plan Plan for attempt at nonoperative management of small bowel obstruction with nasogastric decompression, bowel rest, serial abdominal examinations and radiographs. It is possible the patient could require surgery. Above plan per surgery. Agree with this plan. Start nebulizer treatments and pain management and fluids. Plan addendum for 10/24/2022: Nice improvement after bowel movement. Will defer to surgery for discussion about further imaging or removal of NG tube. Continue nebs and pain management for back pain/belly pain. Check electrolytes today. Plan addendum for 10/25/2022-still improved. Defer to surgery for NG tube management. Electrolytes stabilized. Plan addendum for 10/26/2022-patient feels better but surgery opinion is somewhat more negative given her radiographs. Follow-up post radiographs today and follow along with surgery. No change in pulmonary medications Plan addendum for 10/27-radiograph showed good progress. Surgery involved. Plan to expand diet today. Continue other care. Get PT and OT involved to get her out of bed and up in a chair.
--- NOTE | 2022-10-27 09:19 | HMH.PTEV ---
Physical Therapy Evaluation Rehab PT IP Evaluation Start: 10/27/22 08:04 Freq: ONCE Status: Active Protocol: Document 10/27/22 08:20 PRANAV (Rec: 10/27/22 09:19 PRANAV [id number]) Subjective/History History History [address] [facility] with SBO. She reports she lives with her grandson, she is generally independent with all mobility, and has 1-2 steps to enter the home. Subjective Subjective She reports feeling tired and weak, but agrees to get OOB. Rehab PT IP Eval Objective Appearance Patient Behavior Appropriate Patient Orientation Person,Place,Time Difficulty following instructions none Speech Pattern Clear Ambulation Patient Able to Ambulate Yes Ambulation Observation IP General Gait Pattern Observation No Deviations/Normal Ambulation Distance (feet) 40 Ambulation Assistive Device None Ambulation Ability Supervision/Stand by Balance Ability to Arise Able, uses arms to help Sitting Balance Steady, safe Standing Balance Steady, wide stance Dynamic Sitting Balance Ability Good Dynamic Standing Balance Ability Good Transfers Bed Transfer Ability Supervision/Stand by Chair Transfer Ability Supervision/Stand by Sit to Stand Bed Transfer Ability Supervision/Stand by Sit to Stand Chair Transfer Ability Supervision/Stand by ROM All Extremities PT ROM Status WFL MMT All Extremities PT MMT WFL Rehab PT IP prob,goals,plan Problems Date of Evaluation: 10/27/22 Discharge Plan PT Discharge Plan Pt currently appears to be at baseline for all mobility, she is appropriate to return home with home health therapy vs outpatient therapy. G -code Required No Eval Complexity Eval Charge Codes 71223 - Moderate Complexity PHYSICIAN CERTIFICATION: I certify the specified therapy services for Nadira Helm are required, authorized, and reviewed every 30 days.
--- NOTE | 2022-10-27 09:38 | HMH.OTEV ---
OT Inpatient Evaluation Rehab OT IP Evaluation Start: 10/27/22 08:03 Freq: ONCE Status: Active Protocol: [facility]/22 09[facility] (Rec: 10/27/22 09:37 [facility] [id number]) Rehab OT IP Assessment Subjective History Pt oriented x 3 on arrival. Pt agreeable to engage in therapy evaluation. Pt was admitted on 10/23/22 due to Vomiting and abdominal pain. Prior to being in the hosptial , pt lived with her grandson. Pt reports she was independent with all ADLs and IADLs prior to becoming ill. She was also still driving. Pt has a walker and a cane at home, but usually did not need to use them. Pt has a past medical history of: Chest pain Fatigue History of chest pain History of COVID-19 History of gastroesophageal reflux (GERD) KM (obstructive sleep apnea) Pneumonia Small intestine obstruction SOB (shortness of breath) on exertio Subjective I hope I can go home soon. Objective Patient Orientation Person,Place,Birthday Upper Extremity Gross ROM WFL Bed Mobility bed mobility-scooting,bed mobility - supine/sit,bed mobility - rolling Assist Level Independent Transfer Training Sit/Stand Transfer Assist Level Supervision/Stand by Lower Body Dressing Ability Standby Assistance Performing Toilet Hygiene Ability Standby Assistance Overall Commode/Toilet Transfer Ability Standby Assistance Commode/Toilet Transfer Technique Sit to/from Ambulatory Rehab OT IP prob,goals,plan Problems Date of Evaluation: 10/27/22 Rehab Potential Rehab Potential Innapropriate for Skilled Therapy Discharge Plan OT Discharge Plan At this time, pt appears to be at her baseline with functional transfers and ADL independence. Pt can return home with her grandson once
--- NOTE | 2022-10-27 14:17 | PC.NURSE ---
patient has done well this shift. did walk to bathroom with pt. did tolerate jello and other clear liquids through out the day. no concerns or complaints. no nausea or pain. encouraged to ring out as needed
--- NOTE | 2022-10-27 14:27 | DIET.NUTRFU ---
diet upgraded to clear liquids and patient reports she was starving, provided her with multiple juices/jello and boost clear. Will start providing the boost clear on trays to sip on until able to advance diet for extra calories and protein
[2022-10-28] VITALS: BP 139/77; PULSE 70; PULSE 72; RESP 16; TEMP 36.6; O2SAT 95
--- NOTE | 2022-10-28 03:30 | PC.NURSE ---
Pt is sleeping at this time, Pt has been A/O X 4 this shift. Reports she feels ok, no nausea or vomiting. Pt has been usign a bed jin through the night. Lungs were clear, resp even and non labored. IV is patent with NS running at 150ml/hr. Pt encouraged to call for any needs. Bed locked in low position, side rails up x 2, call light in reach.
[2022-10-28 04:00] VITALS: BP 144/76; PULSE 60; PULSE 69; RESP 17; TEMP 36.6; O2SAT 93
[2022-10-28 05:00] VITALS: BMI 19.2
[2022-10-28 07:03] LABS: Basophils % 0.5 % (0.1-2.0); Eosinophils # 0.2 K/mm3 (0.0-0.4); Eosinophils % 2.4 % (0.1-12.0); Hematocrit 30.5 % (37.0-47.0); Hemoglobin 10.4 g/dL (12.2-16.2); Lymphocytes # 1.5 K/mm3 (0.7-4.5); Lymphocytes % 18.9 % (10-50); Mean Corpuscular HGB Conc 33.9 g/dL (31.8-35.4); Mean Corpuscular Hemoglobin 29.4 pg (27.0-31.2); Mean Corpuscular Volume 86.7 fl (81-99); Mean Platelet Volume 9.8 fl (7.4-10.4); Monocytes # 0.4 K/mm3 (0.1-1.0); Monocytes % 4.7 % (1.7-9.3); Neutrophils # 5.8 K/mm3 (1.8-7.8); Neutrophils % 73.4 % (37.0-80.0); Platelet Count 198 K/mm3 (142-424); Red Blood Count 3.52 M/mm3 (4.20-5.40); Red Cell Distribution Width 13.5 % (11.5-17.5); White Blood Count 7.9 K/mm3 (4.8-10.8)
[2022-10-28 07:07] LABS: Chloride 107 mmol/L (98-107); Sodium 138 mmol/L (136-145)
[2022-10-28 07:10] LABS: Anion Gap 6.3 mEq/L (5-15); Blood Urea Nitrogen 21 mg/dl (7-17); Calcium 7.9 mg/dl (8.4-10.2); Carbon Dioxide 27 mmol/L (22.0-30.0); Creatinine Clearance Estimated 39 mL/min (50-200); Estimated Glomerular Filt Rate 97 ml/min (>60); GFR (African American) 117 ML/MIN (>60); Glucose 93 mg/dl (74-100)
[2022-10-28 08:00] VITALS: BP 142/84; PULSE 73; PULSE 83; RESP 16; TEMP 36.6; O2SAT 98
--- NOTE | 2022-10-28 08:26 | EXP.ACUTE.PN ---
Subjective *Date: 10/28/22 *Time: 08:26 Interval history: Did well overnight, still passing flatus. No pain. Medical Exam Vital signs and Labs for Last 24 Hours: Vital Signs Temp Pulse Pulse Resp BP Pulse Ox 10/28/22 04:00 60 10/28/22 04:00 98 F 69 17 144/76 H 93 L 10/28/22 00:00 70 10/27/22 20:00 80 10/28/22 00:00 97.9 F 72 16 139/77 95 10/27/22 20:00 97.8 F 65 17 151/71 H 96 10/27/22 16:00 68 10/27/22 16:00 98.0 F 74 14 144/75 H 96 10/27/22 12:00 80 10/27/22 12:00 98.7 F 76 16 143/69 H 96 Intake and Output 10/27/22 10/28/22 10/28/22 19:59 03:59 11:59 Intake Total 840 / 2890 2050 / 2890 Output Total 200 / 200 Balance 840 / 2690 0 / 2690 -200 / 2690 Intake: Intake, Oral Amount 840 / 840 Intake, Total IV Amount 2049 / 2049 0.9 % Sodium Chloride 1,000 ml 2049 @ 150 mls/hr IV .Q6H40M [facility] Rx# :[id number] Output: Output, Urine Amount 200 / 200 Other: Number of Unmeasured Voids 1 Weight 115 lb 9.6 oz Patient Weight 10/28/22 11:59 Weight 115 lb 9.6 oz Laboratory Results - last 24 hr 10/28/22 06:09: WBC 7.9, RBC 3.52 L, Hgb 10.4 L, Hct 30.5 L, MCV 86.7, MCH 29.4, MCHC 33.9, RDW 13.5, Plt Count 198, MPV 9.8, Neut % (Auto) 73.4, Lymph % (Auto) 18.9, [place] % (Auto) 4.7, Eos % (Auto) 2.4, Baso % (Auto) 0.5, Neut # (Auto) 5.8, Lymph # (Auto) 1.5, [place] # (Auto) 0.4, Eos # (Auto) 0.2, Baso # (Auto) 0.0 10/28/22 06:09: Sodium 138, Potassium 2.3 L* D, Chloride 107, Carbon Dioxide 27, Anion Gap 6.3, BUN 21 H D, Creatinine 0.60, Estimated Creat Clear 39, Estimated GFR 97, Est GFR ( Amer) 117, Glucose 93, Calcium 7.9 L I & O for Labs for Last 24 Hours: Intake & Output 10/25/22 10/26/22 10/27/22 10/28/22 11:59 11:59 11:59 11:59 Intake Total 2665 / 2665 540 / 540 1630 / 1630 2890 / 2890 Output Total 1600 / 1700 3500 / 3500 0 / 0 200 / 200 Balance 1065 / 965 -2960 / -2960 1630 / 1630 2690 / 2690 Weight 115 lb 2 oz 115 lb 9.6 oz Comment:: Alert, pleasant. Lungs with good air movement, heart rate regular. Abdomen is very slightly more distended but soft and without pain on exam, no distal edema Assessment and Plan *Assessment and plan (1) Small bowel obstruction: Status: Acute Category: Medical Code(s): K56.609 - Unspecified intestinal obstruction, unspecified as to partial versus complete obstruction (2) COPD (chronic obstructive pulmonary disease): Status: Chronic Qualifiers: COPD type: unspecified COPD Qualified Code(s): J44.9 - Chronic obstructive pulmonary disease, unspecified Category: Medical Code(s): J44.9 - Chronic obstructive pulmonary disease, unspecified (3) Pulmonary hypertension: Status: Chronic Category: Medical Code(s): I27.20 - Pulmonary hypertension, unspecified Plan Plan for attempt at nonoperative management of small bowel obstruction with nasogastric decompression, bowel rest, serial abdominal examinations and radiographs. It is possible the patient could require surgery. Above plan per surgery. Agree with this plan. Start nebulizer treatments and pain management and fluids. Plan addendum for 10/24/2022: Nice improvement after bowel movement. Will defer to surgery for discussion about further imaging or removal of NG tube. Continue nebs and pain management for back pain/belly pain. Check electrolytes today. Plan addendum for 10/25/2022-still improved. Defer to surgery for NG tube management. Electrolytes stabilized. Plan addendum for 10/26/2022-patient feels better but surgery opinion is somewhat more negative given her radiographs. Follow-up post radiographs today and follow along with surgery. No change in pulmonary medications Plan addendum for 10/27-radiograph showed good progress. Surgery involved. Plan to expand diet today. Continue other care. Get PT and OT involved
--- NOTE | 2022-10-28 08:39 | P.PN_ITS ---
Subjective Patient reports: no new complaints, flatus and no bowel movement Narrative: She feels about the same overall . She does describe some increased bloating . She believes that she drank too much liquid too fast . She is not experiencing any increased pain or nausea. She wishes to have a smaller amount of milkshakes and something thicker . Exam Data for Last 24 hours Vital signs and Labs for Last 24 Hours: Temp Pulse Resp BP Pulse Ox 98 F 69 17 144/76 H 93 L 10/28/22 04:00 10/28/22 04:00 10/28/22 04:00 10/28/22 04:00 10/28/22 04:00 Laboratory Results - last 24 hr 10/28/22 06:09: WBC 7.9, RBC 3.52 L, Hgb 10.4 L, Hct 30.5 L, MCV 86.7, MCH 29.4, MCHC 33.9, RDW 13.5, Plt Count 198, MPV 9.8, Neut % (Auto) 73.4, Lymph % (Auto) 18.9, [place] % (Auto) 4.7, Eos % (Auto) 2.4, Baso % (Auto) 0.5, Neut # (Auto) 5.8, Lymph # (Auto) 1.5, [place] # (Auto) 0.4, Eos # (Auto) 0.2, Baso # (Auto) 0.0 10/28/22 06:09: Sodium 138, Potassium 2.3 L* D, Chloride 107, Carbon Dioxide 27, Anion Gap 6.3, BUN 21 H D, Creatinine 0.60, Estimated Creat Clear 39, Estimated GFR 97, Est GFR ( Amer) 117, Glucose 93, Calcium 7.9 L I & O for Last 24 hours: Intake & Output 10/25/22 10/26/22 10/27/22 10/28/22 11:59 11:59 11:59 11:59 Intake Total 2665 / 2665 540 / 540 1630 / 1630 2890 / 2890 Output Total 1600 / 1700 3500 / 3500 0 / 0 200 / 200 Balance 1065 / 965 -2960 / -2960 1630 / 1630 2690 / 2690 Weight 115 lb 2 oz 115 lb 9.6 oz Constitutional Constitutional: no acute distress *Routine Respiratory Exam Respiratory: Present normal respiratory effort; Absent respiratory distress *Routine Cardiovascular Exam Cardiovascular: Absent tachycardia *Routine Abdominal Exam Abdominal: Present soft Comments: Mildly distended Progress Note: A&P Assessment and plan (1) Small bowel obstruction: Status: Acute Assessment and plan: No mechanical obstruction noted per small bowel follow-through. Although intermittent obstruction remains a possibility, profound/intermittent dysmotility/ileus is also quite likely. Limited full liquids Increase ambulation Continue serial abdominal exams
[2022-10-28 11:41] LABS: Potassium 2.3 mmoL/L (3.5-5.1)
[2022-10-28 12:00] VITALS: BP 109/72; PULSE 80; PULSE 89; RESP 16; TEMP 37; O2SAT 96
--- NOTE | 2022-10-28 14:21 | DIET.NUTRFU ---
RD saw patient today during meal rounds. Her diet was upgraded to full liquids and she enjoyed a milkshake for breakfast. Saw her for lunch and she was drinking her Boost clear (peach). Her granddaughter ordered that for home also. She really only likes the peach. She did not want milkshake added routinely only upon request. She did report she was feeling better, abdomen less distended and NG tube removed. No sx intervention again this admit. And pateint is aware it could happen again. Will continue to drink supplements to prevent further weight loss.
--- NOTE | 2022-10-28 15:11 | PC.NURSE ---
Pt refused IV to be changed
--- NOTE | 2022-10-28 15:11 | PC.NURSE ---
Pt is A/Ox4. She has been up to chair a good amount of the day. She has been RA all day. She had a large BM today and continues to pass gas all day. She has tolerated full liquid.
--- NOTE | 2022-10-28 15:42 | SW/DCPLANNER ---
Addendum entered by Mary Ann Arthur 10/29/22 10:14: [facility] stated that services will start tomorrow for this patient. Addendum entered by Mary Ann Arthur 10/29/22 09:50: Patient information/order has been faxed to [facility]. Patient will discharge home today. Original Note: I spoke with this patient regarding plans once medically stable for discharge. PT/OT evaluated this patient and recommended home health services at time of discharge. Patient is agreeable to home health services: patient does not have an agency preference at this time. I will set this up at time of discharge. Discharge date is unknown at this time.
[2022-10-28 16:00] VITALS: BP 142/71; PULSE 79; PULSE 85; RESP 16; TEMP 36.9; O2SAT 97
--- NOTE | 2022-10-28 18:54 | PC.NURSE ---
No acute changes at this time. Pt did ambulate in [place] this evening. VSS. CB in reach.
[2022-10-28 18:57] LABS: Chloride 106 mmol/L (98-107); Sodium 137 mmol/L (136-145)
[2022-10-28 19:00] LABS: Blood Urea Nitrogen 21 mg/dl (7-17); Creatinine Clearance Estimated 39 mL/min (50-200); Estimated Glomerular Filt Rate 97 ml/min (>60); GFR (African American) 117 ML/MIN (>60)
[2022-10-28 19:01] LABS: Anion Gap 7.7 mEq/L (5-15); Calcium 8.4 mg/dl (8.4-10.2); Carbon Dioxide 26 mmol/L (22.0-30.0); Glucose 107 mg/dl (74-100)
[2022-10-28 19:04] LABS: Potassium 2.7 mmoL/L (3.5-5.1)
--- NOTE | 2022-10-28 19:13 | PC.NURSE ---
40 meq po k ordered x 1 for critical k of 2.7, per Dr Martinez. This RN notified him of K level at 190.
[2022-10-28 20:00] VITALS: BP 135/75; PULSE 76; PULSE 80; RESP 18; TEMP 36.8; O2SAT 96
[2022-10-29] VITALS: BP 131/70; PULSE 67; PULSE 70; RESP 16; TEMP 36.8; O2SAT 98
--- NOTE | 2022-10-29 02:43 | PC.NURSE ---
Pt has rest in bed all night, no nausea or vomiting. Lungs clear, resp even and non labored. Reports she is ready to go home. Pt had low potassium earlier in shift, PO potassium was given. Repeat labs this morning. IV is patent and SL, pt does not want fluids. Pt has also refused to wear scuds this shift. Pt educated on Plan of care, encouraged to call out if any needs. Call light within reach, bed locked in low position.
[2022-10-29 04:00] VITALS: BP 137/70; PULSE 80; PULSE 81; RESP 16; TEMP 36.8; O2SAT 92
[2022-10-29 05:00] VITALS: BMI 20.7
--- NOTE | 2022-10-29 06:30 | EXP.SURG.PN ---
Subjective Patient reports: no new complaints and feels better Narrative: Patient has tolerated full liquid diet. She does state that her bowels have moved. Her bloating she feels has improved. Exam Data for Last 24 hours Vital signs and Labs for Last 24 Hours: Temp Pulse Resp BP Pulse Ox 98.2 F 81 16 137/70 92 L 10/29/22 04:00 10/29/22 04:00 10/29/22 04:00 10/29/22 04:00 10/29/22 04:00 Laboratory Results - last 24 hr 10/28/22 06:09: WBC 7.9, RBC 3.52 L, Hgb 10.4 L, Hct 30.5 L, MCV 86.7, MCH 29.4, MCHC 33.9, RDW 13.5, Plt Count 198, MPV 9.8, Neut % (Auto) 73.4, Lymph % (Auto) 18.9, [place] % (Auto) 4.7, Eos % (Auto) 2.4, Baso % (Auto) 0.5, Neut # (Auto) 5.8, Lymph # (Auto) 1.5, [place] # (Auto) 0.4, Eos # (Auto) 0.2, Baso # (Auto) 0.0 10/28/22 06:09: Sodium 138, Potassium 2.3 L* D, Chloride 107, Carbon Dioxide 27, Anion Gap 6.3, BUN 21 H D, Creatinine 0.60, Estimated Creat Clear 39, Estimated GFR 97, Est GFR ( Amer) 117, Glucose 93, Calcium 7.9 L 10/28/22 18:41: Sodium 137, Potassium 2.7 L*, Chloride 106, Carbon Dioxide 26, Anion Gap 7.7, BUN 21 H, Creatinine 0.60, Estimated Creat Clear 39, Estimated GFR 97, Est GFR ( Amer) 117, Glucose 107 H, Calcium 8.4 I & O for Last 24 hours: Intake & Output 10/26/22 10/27/22 10/28/22 10/29/22 11:59 11:59 11:59 11:59 Intake Total 540 / 540 1630 / 1630 3370 / 3370 840 / 840 Output Total 3500 / 3500 0 / 0 200 / 200 375 / 375 Balance -2960 / -2960 1630 / 1630 3170 / 3170 465 / 465 Weight 115 lb 2 oz 115 lb 9.6 oz 124 lb 4.8 oz Microbiology Reports for the Last 24 Hours: Microbiology 10/24/22 11:51 Sputum - Expectorated Sputum Gram Stain - Final 10/24/22 11:51 Sputum - Expectorated Sputum Sputum Culture - Final Normal Respiratory Anya 10/23/22 08:49 Blood Blood Culture - Final NO GROWTH AFTER 5 DAYS 10/23/22 08:49 Blood Blood Culture - Final NO GROWTH AFTER 5 DAYS *Routine Abdominal Exam Abdominal: Present soft; Absent tenderness Comments: No significant distention. Progress Note: A&P Assessment and plan (1) Small bowel obstruction: Status: Acute Assessment and plan: Labs pending this morning. Possible discharge.
[2022-10-29 06:31] LABS: Basophils % 0.6 % (0.1-2.0); Eosinophils # 0.2 K/mm3 (0.0-0.4); Eosinophils % 4.1 % (0.1-12.0); Hematocrit 29.3 % (37.0-47.0); Hemoglobin 10.1 g/dL (12.2-16.2); Lymphocytes # 1.3 K/mm3 (0.7-4.5); Lymphocytes % 24.1 % (10-50); Mean Corpuscular HGB Conc 34.4 g/dL (31.8-35.4); Mean Corpuscular Hemoglobin 29.5 pg (27.0-31.2); Mean Corpuscular Volume 85.9 fl (81-99); Mean Platelet Volume 8.9 fl (7.4-10.4); Monocytes # 0.3 K/mm3 (0.1-1.0); Monocytes % 5.5 % (1.7-9.3); Neutrophils # 3.6 K/mm3 (1.8-7.8); Neutrophils % 65.7 % (37.0-80.0); Platelet Count 190 K/mm3 (142-424); Red Blood Count 3.41 M/mm3 (4.20-5.40); Red Cell Distribution Width 13.8 % (11.5-17.5); White Blood Count 5.5 K/mm3 (4.8-10.8)
[2022-10-29 06:33] LABS: Chloride 108 mmol/L (98-107); Sodium 136 mmol/L (136-145)
[2022-10-29 06:36] LABS: Blood Urea Nitrogen 19 mg/dl (7-17); Creatinine Clearance Estimated 42 mL/min (50-200); Estimated Glomerular Filt Rate 97 ml/min (>60); GFR (African American) 117 ML/MIN (>60)
[2022-10-29 06:37] LABS: Calcium 7.9 mg/dl (8.4-10.2); Carbon Dioxide 25 mmol/L (22.0-30.0); Glucose 83 mg/dl (74-100)
[2022-10-29 07:52] VITALS: BP 141/96; PULSE 81; RESP 21; TEMP 37; O2SAT 94
[2022-10-29 08:00] VITALS: PULSE 72
--- NOTE | 2022-10-29 08:17 | EXP.DC.SUM ---
General Admission date:: 10/23/22 Discharge date: 10/29/22 HPI HPI HPI: Patient is a 77-year-old female with history of coronary artery disease, hypertension, coronary stenting, COPD, pulmonary hypertension, history of atrial fibrillation, obstructive sleep apnea. She had undergone laparotomy for bowel obstruction approximately 18 years ago. She had had recurrent episodes of bowel obstruction which had been managed nonoperatively. She had been admitted on 01/30/2022 with a bowel obstruction. She required laparotomy with extensive lysis of adhesions by Dr. Hickman at that time. There was concern for possible recurrent obstruction given the findings. She had a recurrent bowel obstruction and was admitted 02/15/2022 until 02/18/2022 which was managed nonoperatively. She presented to the emergency department early this morning with complaints of nausea/vomiting, and diarrhea. She actually states that she has been having abdominal pain for several months. She had been seen in the emergency department about 1 week ago and had a CT scan performed at that time which revealed no acute findings. Postoperative changes of chronically dilated small bowel loop within the pelvis appears stable since the comparison studies. No bowel obstruction. She has no new abdominal pains. However she began vomiting a couple hours prior to arrival to the emergency department early this morning. She has chronic diarrhea and chronic abdominal pain which has not changed in character. Work-up included CT scan which revealed findings of small bowel obstruction with 5 cm length transition zone in the right lower quadrant just proximal to the small bowel anastomosis. The proximal extent of this narrowed small bowel suggest some wall thickening which may represent inflammation. . She was admitted for inpatient management and surgical consultation. Above note per surgery consult. Appreciate input and consultation. Patient notes her back still hurts. Had had pain management appointment scheduled. Breathing has been stable. Patient is a long history of emphysema and is on a combination LABA/LAMA as an outpatient Hospital Course Hospital Course Hospital Course: Patient was admitted, surgery consulted. NG tube was placed. Conservative therapy was done and patient very very slowly improved and was able to be transitioned to clear liquids after NG tube is out. She tolerated this well, transition to full liquids and a soft mechanical diet yesterday. She noticed a little bit of pain with eating but felt this was because she had not eaten in a while. She continued to have flatus and bowel movements last night. This morning she eating eggs and some milk and wishes to go home. She was treated for hypokalemia here. She lives very close to the hospital and understands return instructions if the bowel obstruction worsens. Plan will be to see her in the office in 5 days. She will continue other medications. Exam Data for Last 24 hours Vital signs and Labs for Last 24 Hours: Temp Pulse Resp BP Pulse Ox 98.6 F 81 21 141/96 H 94 L 10/29/22 07:52 10/29/22 07:52 10/29/22 07:52 10/29/22 07:52 10/29/22 07:52 Laboratory Results - last 24 hr 10/28/22 06:09: Potassium 2.3 L* D 10/28/22 18:41: Sodium 137, Potassium 2.7 L*, Chloride 106, Carbon Dioxide 26, Anion Gap 7.7, BUN 21 H, Creatinine 0.60, Estimated Creat Clear 39, Estimated GFR 97, Est GFR ( Amer) 117, Glucose 107 H, Calcium 8.4 10/29/22 06:06: WBC 5.5 D, RBC 3.41 L, Hgb 10.1 L, Hct 29.3 L, MCV 85.9, MCH 29.5, MCHC 34.4, RDW 13.8, Plt Count 190, MPV 8.9, Neut % (Auto) 65.7, Lymph % (Auto) 24.1, [place] % (Auto) 5.5, Eos % (Auto) 4.1, Baso % (Auto) 0.6, Neut # (Auto) 3.6, Lymph # (Auto) 1.3, [place] # (Auto) 0.3, Eos # (Auto) 0.2, Baso # (Auto) 0.0 10/29/22 06:06: Sodium 136, Potassium 3.0 L, Chloride 108 H, Carbon Dioxide 25, Anion Gap 6.0, BUN 19 H, Creatinine 0.60, Estimated Creat Clear 42, Estimated GFR 97, Est G
--- NOTE | 2022-10-29 08:33 | PC.NURSE ---
Notified Dr. Martinez of K of 3, 20 meq additional k ordered po x 1.
--- NOTE | 2022-10-29 09:47 | HMH.PHAINT1 ---
Pharmacy Intervention Comments: DISCHARGE MEDICATION COUNSELING PROVIDED. DISCUSSED HOLDING THE ASPIRIN UNTIL 11/05/22. PATIENT VERBALIZED NO QUESTIONS AT THIS TIME.
--- NOTE | 2022-10-30 13:36 | CARE MANAGER ---
Patient states that she is feeling better. She has been able to keep some food down. She denies questions or concerns and is aware of her follow up appointments. HIMANSHU Sauceda
== END 2022-10-29 11:20 | disposition home or self-care (01) | DRG 389 ==
LOC: ER 03:27 → 2ND 04:09
PROVIDERS: Admitting Provider Family Medicine; Emergency Provider Emergency Medicine; PCP Internal Medicine Adolescent Medicine; Visit Provider Internal Medicine Adolescent Medicine
DX: K56.609 Unspecified intestinal obstruction, unspecified as to partial versus complete obstruction (principal); N17.9 Acute kidney failure, unspecified; Z87.891 Personal history of nicotine dependence; I25.2 Old myocardial infarction; E78.5 Hyperlipidemia, unspecified; I11.0 Hypertensive heart disease with heart failure; I50.9 Heart failure, unspecified; G47.33 Obstructive sleep apnea (adult) (pediatric); I27.20 Pulmonary hypertension, unspecified; J43.9 Emphysema, unspecified; E87.6 Hypokalemia
CPT/HCPCS: 36415; 71045; 74021; 74177; 74250; 80048; 80053; 81001; 83605; 83690; 84484; 85007; 85025; 87040; 87070; 87086; 87088; 87186; 87205; 93005; 97162; 97165; 99285; C9803; J2405; Q9967; U0003; U0005

== ENCOUNTER → 2022-12-01 13:27 | Outpatient (CLI) | payer MEDICARE, BC, SELFPAY ==
--- NOTE | 2022-12-01 13:32 | XR_ITS ---
FINAL REPORT CLINICAL HISTORY: ACUTE BILATERAL LOW BACK PAIN W/O SCIATICA COMPARISON: CT dated 10/23/2022 FINDINGS: AP, lateral, and oblique views of the lumbar spine were obtained. There is dextroscoliosis. There is a mild compression deformity involving the superior of L1 which is age indeterminate but may be new. The remaining vertebral body heights are preserved. There is multilevel degenerative disc disease, most pronounced at L5-S1. IMPRESSION: Apparent compression deformity of the superior endplate of L1 which may be new since recent CT however consider MRI. Multilevel degenerative disc disease. Reviewed, Interpreted and Dictated by Shayla Rogel MD Transcribed by Aure Nugent Authenticated and [facility]
== END ==
LOC: RAD 13:28
PROVIDERS: PCP Internal Medicine Adolescent Medicine; Visit Provider Nurse Practitioner Family
DX: M54.50 Low back pain, unspecified (principal)
CPT/HCPCS: 72110

== ENCOUNTER → 2022-12-02 12:07 | Outpatient (CLI) | payer MEDICARE, BC, SELFPAY ==
[2022-12-02 12:13] LABS: Microscopic, Urine URINE MICROSCOPIC (MICROSCOPIC)
[2022-12-02 12:49] LABS: Appearance,Urine CLEAR (Clear); Bilirubin,Urine Negative (Negative); Blood, Urine TRACE-I (Negative); Color,Urine YELLOW (Yellow); Glucose,Urine (UA) Negative (Negative); Ketones,Urine Negative (Negative); Leukocyte Esterase,Urine 1+ (Negative); Nitrate,Urine POSITIVE (Negative); Protein,Urine Negative (Negative); Urobilinogen,Urine 0.2 EU/dl (0.2)
[2022-12-02 13:31] LABS: Bacteria,Urine 3+ /lpf; RBC,Urine Occasional #/hpf (0-3); Squamous Epithelial Cell,Urine Occasional #/hpf (0-5)
== END ==
PROVIDERS: PCP Nurse Practitioner Family; Visit Provider Nurse Practitioner Family
DX: N39.0 Urinary tract infection, site not specified (principal); B96.29 Other Escherichia coli [E. coli] as the cause of diseases classified elsewhere
CPT/HCPCS: 81001; 87086; 87088; 87186

== ENCOUNTER → 2022-12-16 13:49 | Outpatient (POV) | payer MEDICARE, SELFPAY ==
--- NOTE | 2022-12-16 14:13 | EXP.PAIN.OV ---
HPI Data of Consult Patient: new to practice Consult date: 12/16/22 Requesting Physician: Renetta Arias APRN Primary Care Provider: Wally Martinez MD Consult Narrative Reason for consult: Low back pain, right lumbar/abdomen pain History of present illness: Ms. Helm is a 77 year old female who presents today as a new patient. She is a referral from [facility]. She rates her pain today an 8 out of 10. Patient states her pain is all in her low back with some radiating symptoms into her right lumbar muscles and abdomen. Patient states that she does have a history of frequent falls with the last one being in January 2022. Patient states at that time she had pneumonia and a bowel obstruction and she was at home getting her medicine and tripped on a rug. Patient states she has a significant history of bowel obstruction and has had multiple surgeries at [facility] and for this issue. Patient states that she was scheduled for a referral at [facility] in [place] related to her history of bowel obstruction however she was unable to make this appointment yesterday due to the weather. Patient states it is being rescheduled for December 25. Patient also states in one of her other previous falls she did fall on her shoulder and caused a fracture. Patient has been on tramadol in the past as well as [place] 5 mg however the patient states she got more relief with rapid release Tylenol. Patient states that she takes this medication along with using a heating pad frequently for additional relief. Patient has tried [id number] topicals including IcyHot with some improvement. Patient states she is currently in physical therapy once a week and that she has had some improvement however she is unsure if it is related to the physical therapy alone or in combination with the Tylenol. Patient has had x-ray imaging of her lumbar spine. Her Rich is [phone]. Its been reviewed and appropriate. CC: Renetta Arias APRN [facility] Disclaimer: The information contained in this section may have been updated after the patient was seen, as this information can be updated by other users. Medical History (Updated 12/16/22 @ 14:26 by Renetta Arias APRN) Chest pain Fatigue History of chest pain History of COVID-19 History of gastroesophageal reflux (GERD) KM (obstructive sleep apnea) Pneumonia Small intestine obstruction SOB (shortness of breath) on exertion Surgical History (Updated 10/23/22 @ 05:33 by Latonya Guallpa RN) History of colon resection History of colonoscopy History of hysterectomy Family History (Updated 10/23/22 @ 05:33 by Latonya Guallpa RN) Other Coronary artery disease Family history of GERD Family history of cancer Family history of diabetes mellitus type II Family history of hyperlipidemia Family history of hypertension Family history of myocardial infarction Social History (Updated 10/23/22 @ 05:33 by Latonya Guallpa RN) Smoking Status: Former smoker pack-years: 50 second hand exposure: No alcohol intake: never counseling provided: none substance use type: denies use current occupational status: retired Travel in the last 8 weeks: None household members: none housing: house current occupational exposures/hazards: No caffeine: Yes Review of Systems Review of Systems Review of systems:: pertinent systems reviewed and negative unless documented below Review of systems (narrative): Review of Systems: General: No recent weight changes, no fever, no sleep disturbances Respiratory: No cough, no shortness of air, no recurring pulmonary infections Cardiovascular/peripheral vascular: No chest pain, no palpitations, no edema, no shortness of breath Gastrointestinal: No new onset incontinence, normal bowel movements reported Genitourinary: No new onset incontinence Musculoskeletal: Low back pain Psychiatric: [Normal mood/affect] Neurological: [Denies weakness in extremities]
[2022-12-16 14:22] VITALS: BP 166/76; PULSE 91; RESP 18; O2SAT 98; BMI 17.9
== END ==
LOC: SC.PAIN 13:50
PROVIDERS: PCP Internal Medicine Adolescent Medicine; Visit Provider Nurse Practitioner Family
DX: M54.50 Low back pain, unspecified (principal)
CPT/HCPCS: 99202; G0463

== ENCOUNTER → 2022-12-22 10:08 | Outpatient (CLI) | payer MEDICARE, SELFPAY ==
--- NOTE | 2022-12-22 10:11 | MR_ITS ---
FINAL REPORT CLINICAL HISTORY: LOWER BACK PAIN. symptoms x10 months. no injury or trauma. COMPARISON: CT dated 10/23/2022 FINDINGS: Multiplanar MR imaging of the lumbar spine was performed without contrast. On the sagittal T2-weighted images, there is abnormal decreased signal throughout the lumbar discs. There is about a 30% compression deformity of the L1 vertebra. There is abnormal marrow edema throughout the L1 vertebra consistent with insufficiency fracture. This finding is new since the prior CT exam of 10/23/2022. There is a 50% compression deformity of T11 which has progressed since the prior CT exam. The vertebral alignment is normal. L1-2: There is no significant canal stenosis or neural foraminal narrowing. L2-3: There is no significant canal stenosis or neural foraminal narrowing. L3-4: There is no significant canal stenosis or neural foraminal narrowing. L4-5: There is no significant canal stenosis or neural foraminal narrowing. L5-S1: A moderate diffuse disc bulge is present with high-grade right and moderate left neuroforaminal narrowing. IMPRESSION: New compression deformity of L1 and progressive compression deformity of T11 consistent with acute or subacute insufficiency fractures. Diffuse disc bulge at L5 S1 with high-grade right and moderate left neuroforaminal compromise. Reviewed, Interpreted and Dictated by Olu Bailey MD Transcribed by Opal Rea Authenticated and [facility]
== END ==
LOC: RAD 10:08
PROVIDERS: PCP Internal Medicine Adolescent Medicine; Visit Provider Nurse Practitioner Family
DX: M54.50 Low back pain, unspecified (principal); M43.8X9 Other specified deforming dorsopathies, site unspecified
CPT/HCPCS: 72148; 76376

== ENCOUNTER → 2022-12-30 10:56 | Outpatient (POV) | payer MEDICARE, SELFPAY ==
[2022-12-30 11:42] VITALS: BP 127/82; PULSE 105; RESP 18; O2SAT 98; BMI 18.3
--- NOTE | 2022-12-30 12:48 | EXP.PAIN.SOA ---
[facility] Pain Management SOAP Note Subjective:: Patient is a pleasant 77-year-old female who presents today for follow-up of MRI of lumbar spine. We are currently treating the patient for low back pain. Today she rates her pain a 10 out of 10. Patient denies any new trauma or injury. Patient denies any change location or type of pain she experiences. Patient does state her pain is all in her mid to low back and describes it as a sharp, achy sensation that is worse with increased activity. Patient was given a back brace at our last visit however she states she has taken breaks with this device due to worsening abdominal pain. Patient has a significant history of bowel obstruction and surgical intervention. Patient has been seeing [facility] in [place] for this issue. Patient has tried tramadol and [place] in the past however did not get significant relief. Patient does continue to use rapid release Tylenol with some improvement along with a heating pad. Patient has used [id number] topicals such as IcyHot. Patient is still currently seeing physical therapy. Patient is not currently on any scheduled medications. Her Rich is [id number]. Review of Systems: General: No recent weight changes, no fever, no sleep disturbances Respiratory: No cough, no shortness of air, no recurring pulmonary infections Cardiovascular/peripheral vascular: No chest pain, no palpitations, no edema, no shortness of breath Gastrointestinal: No new onset incontinence, normal bowel movements reported Genitourinary: No new onset incontinence Musculoskeletal: Low back pain Psychiatric: [Normal mood/affect] Neurological: [Denies weakness in extremities], [denies balance issues] Objective:: Physical Exam: General: Alert and oriented x3, no acute distress, pleasant and cooperative Lungs: Respirations even and unlabored, symmetrical chest expansion Eyes: PERRL Musculoskeletal: Flexion and extension of lumbar [spine] somewhat guarded secondary to pain, [antalgic gait noted] Neurological: Speech clear, no gross sensory deficit FINAL REPORT CLINICAL HISTORY: LOWER BACK PAIN. symptoms x10 months. no injury or trauma. COMPARISON: CT dated 10/23/2022 FINDINGS: Multiplanar MR imaging of the lumbar spine was performed without contrast. On the sagittal T2-weighted images, there is abnormal decreased signal throughout the lumbar discs.? There is about a 30% compression deformity of the L1 vertebra.? There is abnormal marrow edema throughout the L1 vertebra consistent with insufficiency fracture.? This finding is new since the prior CT exam of 10/23/2022.? There is a 50% compression deformity of T11 which has progressed since the prior CT exam.? The vertebral alignment is normal.? ? L1-2: There is no significant canal stenosis or neural foraminal narrowing.? L2-3: There is no significant canal stenosis or neural foraminal narrowing.? L3-4: There is no significant canal stenosis or neural foraminal narrowing.? L4-5: There is no significant canal stenosis or neural foraminal narrowing.? L5-S1:? A moderate diffuse disc bulge is present with high-grade right and moderate left neuroforaminal narrowing. IMPRESSION: New compression deformity of L1 and progressive compression deformity of T11 consistent with acute or subacute insufficiency fractures.? ? Diffuse disc bulge at L5 S1 with high-grade right and moderate left neuroforaminal compromise. Reviewed, Interpreted and Dictated by Olu Bailey MD Transcribed by Opal Rea Authenticated and [facility] Assessment:: Degenerative disc disease of lumbar spine with lumbar radiculopathy symptoms, acute compression fracture of L1 and T11, multilevel disc bulge Plan:: Patient continues to experience significant pain in her back with limited range of motion. I have counseled the patient that she may benefit from a kyphoplasty procedure. Risk and benefits were disc
== END | disposition home or self-care (01) ==
PROVIDERS: PCP Internal Medicine Adolescent Medicine; Visit Provider Nurse Practitioner Family
DX: M51.16 Intervertebral disc disorders with radiculopathy, lumbar region (principal); S22.089D Unspecified fracture of T11-T12 vertebra, subsequent encounter for fracture with routine healing; S32.019D Unspecified fracture of first lumbar vertebra, subsequent encounter for fracture with routine healing
CPT/HCPCS: 99212; G0463

== ENCOUNTER → 2023-01-25 10:53 | Outpatient (POV) | payer MEDICARE, SELFPAY ==
[2023-01-25 11:10] VITALS: BP 129/73; PULSE 90; RESP 18; O2SAT 98; BMI 18.8
--- NOTE | 2023-01-25 11:25 | EXP.PAIN.SOA ---
[facility] Pain Management SOAP Note Subjective:: Patient is a pleasant 77-year-old female who presents today for follow-up of kyphoplasty of T11 and L1. We are currently treating the patient for degenerative disc disease of lumbar spine with lumbar radiculopathy symptoms, acute fractures of T11 and L1. Today she rates her pain a 3 out of 10. She states that she has had significant relief following this surgical procedure. Patient denies any new trauma or injury. Patient denies any change location or type of pain she experiences. She states that she would rate at least 80% improvement. She does state occasionally when she is putting on her shoes or reaching down she will have some additional pain or in her back however it is nothing like what it was prior. Patient was previously taking [id number] rapid release Tylenol along with using a heating pad and she states that she has not had to even do either of these options since having the kyphoplasty. Patient is still currently seeing physical therapy. Patient states that she has recently been to [place] for her history of bowel blockage and at that time they stated they could not do anything additional until her next blockage. They were concerned that any additional procedures would cause additional scar tissue and increase her risk of recurrence. Patient is currently taking a D3 vitamin supplement daily however she states in the past she was on Prolia injections for her osteoporosis however these were stopped because insurance would no longer pay. Patient states that she is planning on discussing with her primary care doctor about being on additional medication for her bones. Patient states she is continuing to use her back brace for additional relief. Her Rich is [phone]. Its been reviewed and appropriate. Review of Systems: General: No recent weight changes, no fever, no sleep disturbances Respiratory: No cough, no shortness of air, no recurring pulmonary infections Cardiovascular/peripheral vascular: No chest pain, no palpitations, no edema, no shortness of breath Gastrointestinal: No new onset incontinence, normal bowel movements reported Genitourinary: No new onset incontinence Musculoskeletal: Low back pain Psychiatric: [Normal mood/affect] Neurological: [Denies weakness in extremities], [denies balance issues] Objective:: Physical Exam: General: Alert and oriented x3, no acute distress, pleasant and cooperative Lungs: Respirations even and unlabored, symmetrical chest expansion Eyes: PERRL Musculoskeletal: Flexion and extension of lumbar [spine] somewhat guarded secondary to pain, [antalgic gait noted] Neurological: Speech clear, no gross sensory deficit Assessment:: Degenerative disc disease of lumbar spine with lumbar radiculopathy symptoms, acute compression fractures of T11, L1, status post kyphoplasty T11, L1 Plan:: Patient has had significant improvement following her two-level kyphoplasty and does not require any additional therapies at this time. I have counseled the patient to continue her postop restrictions with minimal bending, lifting and twisting. Patient's incision sites have already healed. Patient will return to clinic in 3 months for reevaluation of symptoms and plan of care. Patient has been instructed to contact the clinic with any concerns before the next appointment. Dr. Poole has reviewed this note and agrees with this plan of care. This note was dictated using voice recognition software and make contain errors or omissions. [facility] Disclaimer: The information contained in this section may have been updated after the patient was seen, as this information can be updated by other users. Medical History Chest pain COPD (chronic obstructive pulmonary disease) Fatigue History of chest pain History of COPD History of COVID-19 History of gastroesophageal reflux (GERD) KM (obstructive sleep apnea) Pneumonia Screening for lung cancer Shortness of breath Small i
== END ==
LOC: SC.PAIN 10:53
PROVIDERS: PCP Internal Medicine Adolescent Medicine; Visit Provider Nurse Practitioner Family
DX: M51.16 Intervertebral disc disorders with radiculopathy, lumbar region (principal); S32.010A Wedge compression fracture of first lumbar vertebra, initial encounter for closed fracture; S22.080A Wedge compression fracture of T11-T12 vertebra, initial encounter for closed fracture
CPT/HCPCS: 99212; G0463

== ENCOUNTER → 2023-04-29 10:25 | Outpatient (POV) | payer MEDICARE, BC, SELFPAY ==
--- NOTE | 2023-04-29 10:39 | EXP.PAIN.SOA ---
[facility] Pain Management SOAP Note Subjective:: Patient is a pleasant 78-year-old female who presents today for 3-month follow-up of kyphoplasty T11 and L1. We are currently treating the patient for degenerative disc disease of thoracic and lumbar spine with thoracic and lumbar radiculopathy symptoms, status post kyphoplasty of T11 and L1. Today she rates her pain a 0 out of 10. Patient states she continues to have significant relief following her procedure and denies any new injury or trauma. Patient states she has not even had to use the Tylenol or heating pad since her procedure and she continues to do well. She does have a history of bowel blockage that she is managed by [facility] in [place]. Patient does take vitamin D3 supplements and that has been on Prolia injections in the past. Patient is not on any scheduled medications. Her Rich is [phone]. Its been reviewed and appropriate. Review of Systems: General: No recent weight changes, no fever, no sleep disturbances Respiratory: No cough, no shortness of air, no recurring pulmonary infections Cardiovascular/peripheral vascular: No chest pain, no palpitations, no edema, no shortness of breath Gastrointestinal: No new onset incontinence, normal bowel movements reported Genitourinary: No new onset incontinence Musculoskeletal: Low back pain Psychiatric: [Normal mood/affect] Neurological: [Denies weakness in extremities], [denies balance issues] Objective:: Physical Exam: General: Alert and oriented x3, no acute distress, pleasant and cooperative Lungs: Respirations even and unlabored, symmetrical chest expansion Eyes: PERRL Musculoskeletal: Flexion and extension of lumbar [spine] somewhat guarded secondary to pain, [antalgic gait noted] Neurological: Speech clear, no gross sensory deficit Assessment:: Degenerative disc disease of thoracic and lumbar spine with thoracic and lumbar radiculopathy symptoms, status post kyphoplasty of T11 and L1 Plan:: Patient continues to do well following her kyphoplasty and does not require any additional conservative therapies. Patient will return to clinic in 6 months for reevaluation of symptoms and plan of care. Patient has been instructed to contact the clinic with any concerns before the next appointment. Dr. Poole has reviewed this note and agrees with this plan of care. This note was dictated using voice recognition software and make contain errors or omissions. [facility] Disclaimer: The information contained in this section may have been updated after the patient was seen, as this information can be updated by other users. Medical History Chest pain COPD (chronic obstructive pulmonary disease) Dyspnea on exertion Fatigue History of chest pain History of COPD History of COVID-19 History of gastroesophageal reflux (GERD) Lung nodule KM (obstructive sleep apnea) Pneumonia Screening for lung cancer Shortness of breath Small intestine obstruction Smoking greater than 30 pack years SOB (shortness of breath) on exertion Stopped smoking with greater than 30 pack year history Surgical History History of arthroscopy of shoulder History of colon resection History of colonoscopy History of hysterectomy Family History Other Coronary artery disease Family history of GERD Family history of cancer Family history of diabetes mellitus type II Family history of hyperlipidemia Family history of hypertension Family history of myocardial infarction Social History (Updated 01/25/23 @ 16:13 by Stella Stephen) Smoking Status: Current every day smoker tobacco type: cigarettes packs per day: 1 second hand exposure: No alcohol intake: never counseling provided: none substance use type: denies use current occupational status: retired Travel in the last 8 weeks: None household members: none housing: house current occupational exposures/hazard
[2023-04-29 11:46] VITALS: BP 127/75; PULSE 79; RESP 18; TEMP 36.6; O2SAT 98; BMI 19.1
== END ==
LOC: SC.PAIN 10:26
PROVIDERS: PCP Internal Medicine Adolescent Medicine; Visit Provider Nurse Practitioner Family
DX: M51.16 Intervertebral disc disorders with radiculopathy, lumbar region (principal); M51.14 Intervertebral disc disorders with radiculopathy, thoracic region; Z98.890 Other specified postprocedural states
CPT/HCPCS: 99212; G0463

== ENCOUNTER → 2023-08-25 14:16 | Outpatient (CLI) | payer MEDICARE, SELFPAY ==
--- NOTE | 2023-08-25 14:16 | CT_ITS ---
FINAL REPORT TECHNIQUE: Axial CT images were performed from the lung apices through the upper abdomen. Coronal reformats were submitted. This study was performed with techniques to keep radiation doses as low as reasonably achievable (ALARA). Individualized dose reduction techniques using automated exposure control or adjustment of mA and/or kV according to the patient's size were employed. CLINICAL HISTORY: RLL nodule COMPARISON: 08/23/2022 FINDINGS: There is no axillary adenopathy. There are small mediastinal nodes. Heart size is normal. There is no pericardial or pleural effusion. There is mild emphysema and mild scarring. There is a 4 mm pleural-based nodule in the posteromedial right lower lobe well seen on image 38. Finding is stable compared to prior. The patient is status post cholecystectomy. There are multilevel thoracic compression fractures with moderate kyphosis. There are kyphoplasties of T11 and L1. IMPRESSION: Stable right lower lobe nodule, most likely benign. If indicated, follow-up in 12 months may be helpful. Reviewed, Interpreted and Dictated by Mino Bull III, MD Transcribed by Aure Nugent Authenticated and [facility]
== END ==
LOC: RAD 14:16
PROVIDERS: PCP Internal Medicine Adolescent Medicine; Visit Provider Internal Medicine Pulmonary Disease
DX: R91.8 Other nonspecific abnormal finding of lung field (principal)
CPT/HCPCS: 71250

== ENCOUNTER 2023-09-28 07:34 | Day surgery (SDC) | payer MEDICARE, SELFPAY ==
[2023-09-24 13:14] VITALS: BMI 19.1
[2023-09-28 08:18] VITALS: BP 143/69; PULSE 68; RESP 20; TEMP 36.9; O2SAT 98
== END 2023-09-28 09:52 | disposition home or self-care (01) ==
LOC: OUTP 07:35
PROVIDERS: PCP Internal Medicine Adolescent Medicine; Visit Provider Ophthalmology
PROC: (CPT 66821; principal; 2023-09-28 10:30)
DX: H26.40 Unspecified secondary cataract (principal)
CPT/HCPCS: 66821

== ENCOUNTER → 2023-10-19 10:54 | Outpatient (CLI) | payer MEDICARE, SELFPAY | LOC: RT 10:55 | PROVIDERS: PCP Internal Medicine Adolescent Medicine; Visit Provider Physician Assistant | DX: R06.02 Shortness of breath (principal); R00.2 Palpitations; I48.0 Paroxysmal atrial fibrillation; I25.10 Atherosclerotic heart disease of native coronary artery without angina pectoris | CPT/HCPCS: 93225 ==

== ENCOUNTER → 2023-10-28 10:09 | Outpatient (POV) | payer MEDICARE, SELFPAY ==
--- OUTSIDE RECORDS SUMMARY | 2023-10-28 10:12 | XMS_ITS ---
Author Name Unknown Address [address] [place] [address] [place] [address] Phone Organization [facility] Address [address] [place] [address] Phone Care Team Providers Care Shingler Name Role Phone Isabella PAYAN, [facility] [phone] Plan of Treatment No Plan of Treatment Recorded Assessments Includes: Assessments for all patient encounters No Assessments Recorded Medical Equipment - Implanted Devices Includes: Current and historical Devices No Medical Equipment Recorded Medications Administered Includes: Administered Medications in patient's chart No Administered Medications Recorded Results Includes: Results from 10/28/2022 through 10/28/2023 No Results Recorded For Specified Dates History of Present Illness History of Present Illness not supported for this document type No History of Present Illness Recorded Social History No Social History Recorded - Smoking Status Unknown Medical History Includes: Medical History in patient's chart No Medical History Recorded Family History Includes: Family History in patient's chart No Family History Recorded Review of Systems Review of Systems not supported for this document type No Review of Systems Recorded Mental Status No Mental Status Recorded Functional Status No Functional Status Recorded Physical Exam Physical Exam not supported for this document type No Physical Exam Recorded Insurance Includes: Active Insurance Policies Plan Name Member ID Group # Subscriber Relationship Effect basilio Dates 1 - Medicare Part B [facility] [id number] Nadira Almanza Alicja Self Clinical Notes Includes: Signed Clinical Notes starting from 10/29/2022 No Clinical Notes Recorded
--- OUTSIDE RECORDS SUMMARY | 2023-10-28 10:12 | XMS_ITS ---
Care Plan - [facility], [facility] Created on: October 28, 2023 Nadira Helm Archie : 1945 Sex: Female Author Name Unknown Address [address] [place] [address] Phone Organization [facility], [facility] Address [address] [place] [address] Phone Care Team Providers Care Bookkeeper Name Role Phone Isabella PAYAN, [facility] Unavailable [phone]
--- NOTE | 2023-10-28 10:24 | EXP.PAIN.SOA ---
[facility] Pain Management SOAP Note Subjective:: Patient is a pleasant 78-year-old female who presents today for 6-month follow-up. We are currently treating the patient for degenerative disc disease of thoracic and lumbar spine with thoracic and lumbar radiculopathy symptoms, status post kyphoplasty of T11 and L1. Today she rates her pain a 0 out of 10. Patient denies any new trauma or injury. She states that she is continue to do well following her kyphoplasty. Patient states that she will occasionally have some low back pain however that she typically just takes some Tylenol and it does go away. Patient states that it is very manageable when it does come about. Her Rich has been reviewed and is appropriate. Review of Systems: General: No recent weight changes, no fever, no sleep disturbances Respiratory: No cough, no shortness of air, no recurring pulmonary infections Cardiovascular/peripheral vascular: No chest pain, no palpitations, no edema, no shortness of breath Gastrointestinal: No new onset incontinence, normal bowel movements reported Genitourinary: No new onset incontinence Musculoskeletal: Low back pain Psychiatric: [Normal mood/affect] Neurological: [Denies weakness in extremities], [denies balance issues] Objective:: Physical Exam: General: Alert and oriented x3, no acute distress, pleasant and cooperative Lungs: Respirations even and unlabored, symmetrical chest expansion Eyes: PERRL Musculoskeletal: Flexion and extension of lumbar [spine] somewhat guarded secondary to pain, [antalgic gait noted] Neurological: Speech clear, no gross sensory deficit Assessment:: Degenerative disc disease of thoracic and lumbar spine with thoracic and lumbar radiculopathy symptoms, status post kyphoplasty T11 and L1 Plan:: Patient continues to do well following her kyphoplasty and does not need any intervention at this time. I have counseled the patient that I will let her contact our office for her next follow-up appointment as she is doing so well. Patient has been instructed to contact the clinic with any concerns before the next appointment. Dr. Poole has reviewed this note and agrees with this plan of care. This note was dictated using voice recognition software and make contain errors or omissions. [facility] Disclaimer: The information contained in this section may have been updated after the patient was seen, as this information can be updated by other users. Medical History Chest pain COPD (chronic obstructive pulmonary disease) Dyspnea on exertion Fatigue History of chest pain History of COPD History of COVID-19 History of gastroesophageal reflux (GERD) Lung nodule KM (obstructive sleep apnea) Pneumonia Screening for lung cancer Shortness of breath Small intestine obstruction Smoking greater than 30 pack years SOB (shortness of breath) on exertion Stopped smoking with greater than 30 pack year history Surgical History History of arthroscopy of shoulder History of colon resection History of colonoscopy History of hysterectomy Family History Other Coronary artery disease Family history of GERD Family history of cancer Family history of diabetes mellitus type II Family history of hyperlipidemia Family history of hypertension Family history of myocardial infarction Social History Smoking Status: Current every day smoker tobacco type: cigarettes packs per day: 1 second hand exposure: No alcohol intake: never counseling provided: none substance use type: denies use current occupational status: retired Travel in the last 8 weeks: None household members: none housing: house current occupational exposures/hazards: No caffeine: Yes
[2023-10-28 10:53] VITALS: BP 138/68; PULSE 77; RESP 18; O2SAT 96; BMI 19.3
== END ==
PROVIDERS: PCP Internal Medicine Adolescent Medicine; Visit Provider Nurse Practitioner Family
DX: M51.14 Intervertebral disc disorders with radiculopathy, thoracic region (principal); M51.16 Intervertebral disc disorders with radiculopathy, lumbar region
CPT/HCPCS: 99212; G0463

== ENCOUNTER → 2023-11-03 07:50 | Outpatient (CLI) | payer MEDICARE, SELFPAY ==
--- NOTE | 2023-11-03 | CA_ITS ---
APPROVED REPORT Exam: Pharmacologic Technologist: Lili Pettit, Ht: 5 ft 5 in Wt: 115 lbs BSA: 1.56 m2 HR: 62 bpm BP: 130/71 mmHg Rhythm: NSR Indications: R06.02 Stress Test Details Test: LEXISCAN HR Resting HR: 65 bpm Max Heart Rate (APMHR): 142 bpm Max HR Achieved: 110 bpm Target HR (85% APMHR): 121 bpm % of APMHR: 77 Recovery HR: 93 bpm BP Resting BP: 130/71 mmHg Max BP: 139/76 mmHg Recovery BP: 117.0/80.0 mmHg ECG Resting ECG: NSR Stress ECG: No significant ST changes Arrhythmia: PACs, PVCs Clinical Exercise duration: 04:01 min Highest Stage Achieved: Stress ECG Conclusion During lexiscan pt experinced SOA and head discomfort. Ectopy: Occasional PVC and PACs No significant ST changes Conclusion: Unremarkable lexiscan stress. Myoview images reported separately. Test Summary REST . . . . . . . Sitting REST 04:42 . . 65 . 130/ 71 . . Stage 1 01:00 . . 79 . . . . Stage 2 01:00 . . 109 . . . . Stage 3 01:00 . . 96 . 139/ 76 . . Stage 4 01:00 . . 89 . 133/ 71 . . Stage 4 01:01 . . 92 . 133/ 71 . Stop exercise at 04:01 RECOVERY 01:00 . . 88 . . . . RECOVERY 02:00 . . 77 . 117/ 80 . . RECOVERY 03:00 . . 78 . 132/ 65 . . RECOVERY 04:00 . . 77 . 132/ 65 . . RECOVERY 04:10 . . 78 . 132/ 65 . . Electronically signed by : Birdie Kearney MD 11/07/2023 23:02:12
--- NOTE | 2023-11-03 07:51 | CA_ITS ---
APPROVED REPORT EXAM: Comprehensive 2D, Doppler, and color-flow Echocardiogram Duplicate Maker: Nadira Espitia RDCS Ht: 5 ft 5 in Wt: 115lbs BSA: 1.56 BP: 138/77 mmHg Indications: SOA,CAD,SMOKER,COPD,PAF,HTN,HLP 2D Dimensions Left Atrium 4.04 cm F: 2.7 - 3.8 LA Volume 96.00 mL LVOT 2.14 cm (M/F) 1.5-2.5 LA Volume Index 61.54 mL/m2 (M/F) 16-34 EF AP4 67.70 % GL Strain -19.5 % M-Mode Dimensions RVDd 1.90 cm (0.9-2.6) LVDd 6.46 cm (3.5-5.7) Ao Diam 3.62 cm (2.0-3.7) LVDs 3.99 cm (3.5-5.7) IVSd 0.76 cm (0.6-1.1) PWd 0.91 cm (0.6-1.1) EF (Teich) 67.30% FS 38.20% EDV (Teich) 213.00 mL ESV (Teich) 69.60 mL LV Diastology E Decel Time 292 (160-240 msec) E/A Ratio 1.0 MED E' 7.8 (>= 7 cm/sec) E'/MED E' Ratio 7.08 (<= 14) LAT E' 7.8 (>= 10 cm/sec) E/LAT E' Ratio 7.08 (<= 14) Aortic Valve LVOT Max 77.0 (70-110 cm/s) VIJAY Index 1.58 cm2/m2 LVOT VTI 17.75 cm AoV Peak Patricio. 116.0 (50-130 cm/s) AI PHT 552.00 ms AO Mean GR. 2.70 (<5 mmHg) AO VTI 25.8 (18-25 cm) VIJAY (VTI) 2.47 (2.5-4.5 cm2) Mitral Valve MV E Max Patricio. 55.0 (40-130 cm/s) MV A Velocity 55.0 (40-130 cm/s) E/A Ratio 1.00 MV Decel. Time 292 (160-240 ms) Tricuspid Valve TR P. Velocity 339.00 cm/s RAP Estimate 10.00 mmHg RVSP 55.90 mmHg Left Ventricle The left ventricle is normal size. The left ventricular systolic function is low normal. There is increased LV wall thickness. Proximal septal thickening is noted. There is normal LV segmental wall motion. Grade 2 diastolic dysfunction is present. LVEF is 50%. Right Ventricle Right ventricle is mild to moderately dilated. The right ventricular systolic function is normal. Atria The left atrium is severely dilated. The right atrium is severely dilated. There is no Doppler evidence of interatrial shunt. Aortic Valve The aortic valve is mildly thickened. There is no aortic valvular stenosis. Mild aortic regurgitation. Mitral Valve Mild mitral annular calcification. The mitral valve is mildly thickened. No evidence of mitral valve stenosis. Mild mitral regurgitation. Tricuspid Valve The tricuspid valve leaflets are mildly thickened. Moderate tricuspid regurgitation. RVSP is 40-45 mmHg. Pulmonic Valve The pulmonary valve is normal in structure. Trace pulmonic regurgitation. Great Vessels The aortic root is normal in size. The ascending aorta is not well-visualized. IVC is normal in size and collapses >50% with inspiration. Pericardium There is no pericardial effusion. Other Information Study Quality: Fair Conclusion Low normal LV systolic function. Moderate RV dilation with normal RV function. Mild MR. Moderate TR. Elevated RVSP 40-45 mmHg. Electronically signed by : Birdie Kearney MD 11/08/2023 19:07:14
--- NOTE | 2023-11-03 08:32 | NM_ITS ---
APPROVED REPORT Exam: Nuclear Stress Test Indication: CAD, 2 STENTS, HTN, HYPERLIPIDEMIA, TOB USE, FM HX, C.P., SOB, PALPITATIONS, FATIGUE Patient Location: Outpatient Stress Tech: Lucina Guzman [place] Tech:Amanda Li, CHANDRAKANT RT (R)(N)(M) Ht: 5 ft 5 in Wt: 116 lbs Bra Size: A HR: 62 bpm BP: 130/71 mmHg BSA: 1.57 m2 Rhythm: NSR TID: 1.06 BMI: 19.3 History: CAD, 2 STENTS, HTN, HYPERLIPIDEMIA, TOB USE, FM HX, C.P., SOB, PALPITATIONS, FATIGUE PT COULD NOT RAISE HER LT ARM DUE TO SHOULDER FRACTURE, NOR COULD SHE LAY ON STOMACH FOR PRONE IMAGES. Procedure: Patient received 0.4 mg of intravenous Lexiscan, resting heart rate 62 bpm, resting blood pressure 130/71 mmHg, with Lexiscan maximum heart rate achieved was 110 bpm which is % of the maximum predicted heart rate and blood pressure was 139/76 mmHg. With Lexiscan, patient denied any complaint of chest pain. Cardiac Stress and Resting SPECT Images: Cardiac Stress and Resting SPECT images were obtained using technetium 99m Myoview 29.0 mCi stress and 10.33 mCi at rest. The patient was unable to lie on her abdomen. Therefore, prone stress imaging could not be performed. This may affect the diagnostic interpretation of the study findings. Resting and stress imaging in supine position demonstrate no evidence of fixed or reversible perfusion defects. Gated imaging demonstrates normal global and regional LV systolic function. LVEF is calculated at 54%. Conclusion: No evidence of fixed or reversible perfusion defects. Gated imaging demonstrates normal global and regional LV systolic function. LVEF is calculated at 54%. Electronically signed by : Birdie Kearney MD 11/07/2023 23:03:54
== END ==
LOC: RAD 07:51
PROVIDERS: PCP Internal Medicine Adolescent Medicine; Visit Provider Physician Assistant
DX: I25.10 Atherosclerotic heart disease of native coronary artery without angina pectoris; I48.0 Paroxysmal atrial fibrillation; R00.2 Palpitations; R06.02 Shortness of breath; E78.5 Hyperlipidemia, unspecified; Z87.09 Personal history of other diseases of the respiratory system; F17.210 Nicotine dependence, cigarettes, uncomplicated; I11.9 Hypertensive heart disease without heart failure
CPT/HCPCS: 78452; 93017; 93018; 93306; A9502; J2785

== ENCOUNTER 2024-08-01 07:40 | Outpatient (CLI) | payer MEDICARE, SELFPAY ==
--- NOTE | 2024-08-01 07:42 | US_ITS ---
FINAL REPORT TECHNIQUE: Ultrasound images of the abdomen were obtained. CLINICAL HISTORY: abd pain COMPARISON: None FINDINGS: The pancreas is obscured by bowel gas. The liver is unremarkable. The gallbladder is unremarkable. The common duct is normal. The right kidney measures 8.5 cm in length, while the left kidney measures 7.9 cm in length. No evidence of hydronephrosis is seen, however there is slight increase in renal cortical echogenicity, which can be seen with medical renal disease. The spleen is unremarkable. The aorta is normal in caliber with plaque noted throughout the aorta. The vena cava is unremarkable. IMPRESSION: Slight increase in renal cortical echogenicity, which can be seen with medical renal disease. Plaque is noted throughout the abdominal aorta. Reviewed, Interpreted and Dictated by Olu Bailey MD Transcribed by Mary Ang Authenticated and [facility]
== END 2024-08-01 23:59 | disposition home or self-care (01) ==
LOC: RAD 07:40
PROVIDERS: PCP Internal Medicine Adolescent Medicine; Visit Provider Internal Medicine Adolescent Medicine
DX: R10.84 Generalized abdominal pain (principal)
CPT/HCPCS: 76700

== ENCOUNTER 2024-09-18 09:22 | Outpatient (POV) | payer MEDICARE, SELFPAY ==
--- NOTE | 2024-09-18 10:13 | A.OFFVIS_ITS ---
[facility] Disclaimer: The information contained in this section may have been updated after the patient was seen, as this information can be updated by other users. Medical History Lung nodule Smoking greater than 30 pack years Dyspnea on exertion Screening for lung cancer History of COPD Stopped smoking with greater than 30 pack year history Shortness of breath Pneumonia History of COVID-19 History of gastroesophageal reflux (GERD) History of chest pain Small intestine obstruction Chest pain SOB (shortness of breath) on exertion Fatigue KM (obstructive sleep apnea) COPD (chronic obstructive pulmonary disease) Surgical History History of arthroscopy of shoulder History of hysterectomy History of colonoscopy History of colon resection Family History Other Coronary artery disease Family history of GERD Family history of cancer Family history of diabetes mellitus type II Family history of hyperlipidemia Family history of hypertension Family history of myocardial infarction Social History Smoking Status: Current every day smoker tobacco type: cigarettes packs per day: 1 second hand exposure: No alcohol intake: never counseling provided: none substance use type: denies use current occupational status: retired Travel in the last 8 weeks: None household members: none housing: house current occupational exposures/hazards: No caffeine: Yes PM Subjective & Objective Subjective Subjective:: Patient is a pleasant 79-year-old female who presents today for worsening pain. Today she rates her pain a 2 out of 10. Patient states the pain has been all in her low back and denies any new injuries or falls. Patient does state today is not too bad however last week it was more severe and that she could barely get up to walk. Patient states that she could not get into our office last week so she did go to her primary care and they gave her some methocarbamol 500 mg however she states they did absolutely nothing. Patient does state that she had a few Celebrex laying around and that she did try this and it really did seem to help. Her Rich has been reviewed and is appropriate. Review of Systems: General: No recent weight changes, no fever, no sleep disturbances Respiratory: No cough, no shortness of air, no recurring pulmonary infections Cardiovascular/peripheral vascular: No chest pain, no palpitations, no edema, no shortness of breath Gastrointestinal: No new onset incontinence, normal bowel movements reported Genitourinary: No new onset incontinence Musculoskeletal: Low back pain Psychiatric: [Normal mood/affect] Neurological: [Denies weakness in extremities], [denies balance issues] Pain at rest (0-10 scale): 2 Objective Objective:: Physical Exam: General: Alert and oriented x3, no acute distress, pleasant and cooperative Lungs: Respirations even and unlabored, symmetrical chest expansion Eyes: PERRL Musculoskeletal: Flexion and extension of lumbar [spine] somewhat guarded secondary to pain, [antalgic gait noted] Neurological: Speech clear, no gross sensory deficit Has patient had previous pain injection?: No Conservative treatment options previously tried: Home exercise plan Length of treatment: Longer than 12 weeks Meds Home Medications and Allergies Home Medications ?Medication ?Instructions ?Recorded ?Confirmed ?Type vitamin D3 25 mcg (1,000 unit)-vit 1 tab PO DAILY Supplement 10/02/19 08/02/24 History K2 90 mcg disintegrating tablet fluticasone propionate 50 1 spray intranasal DAILY allergies 10/22/21 08/02/24 History mcg/actuation nasal spray,suspension aspirin 81 mg tablet,delayed 81 mg PO DAILY heart health 01/30/22 08/02/24 History release ipratropium 20 mcg-albuterol 100 1 puff inhalation QIDRT SHORTNESS 02/15/22 08/02/24 History mcg/actuation mist for inhalation OF AIR spironolactone 25 mg tablet 25 mg PO BID Edema 02/15/22 08/02/24 History docusate sodium 100 mg capsule 100 mg PO DAILY constipation 10/23/22 08/02/24 History (Colace) pantoprazole 40 mg tablet,delayed 40 mg PO DAILY GERD 10/23/22 08/02/24 History release methocarbamol 500 mg tablet 500 mg PO HS 10/19/23 08/02/24 History nitroglycerin 0.4 mg sublingual 0.4 mg sublingual Q5M PRN chest 10/19/23 08/02/24 Rx tablet pain #20 tabs celecoxib 100 mg capsule mg PO 11/25/23 08/02/24 History fluticasone fur. 100 mcg-umeclid inhalation 11/25/23 08/02/24 History 62.5 mcg-vilant 25 mcg inhalat.powder (Trelegy Ellipta) linaclotide 145 mcg capsule mcg PO 11/25/23 08/02/24 History (Linzess) metoprolol succinate 50 mg 50 mg PO DAILY #30 tabs 11/25/23 08/02/24 Rx tablet,extended release 24 hr rosuvastatin 20 mg tablet See Rx Instructions .Route 02/15/24 08/02/24 Rx .COMPLEX #90 tabs furosemide 40 mg tablet See Rx Instructions .Route 03/16/24 08/02/24 Rx .COMPLEX #90 tabs New Prescriptions to Start Prescriptions: Allergies Allergy/AdvReac Type Severity Reaction Status Date / Time atorvastatin AdvReac Mild myalgias Verified 08/02/24 13:09 Assessment and Plan *Assessment and plan (1) Degenerative disc disease, lumbar: Status: Acute Category: Medical Code(s): M51.369 - Other intervertebral disc degeneration, lumbar region without mention of lumbar back pain or lower extremity pain Plan I did discuss with the patient that we can try and send in a 14-day supply of b aclofen 5 mg twice daily. Patient was counseled to discontinue the methocarbamol. I did also discuss at length due to the patient's heart history with stent placement that it is not recommended for her to take the Celebrex on a regular basis. Patient was counseled that she can try acetaminophen arthritis and that I will also order her some lidocaine patches. Patient will return to clinic in 2 weeks for reevaluation of symptoms and plan of care. Patient has been instructed to contact the clinic with any concerns before the next appointment. Dr. Poole has reviewed this note and agrees with this plan of care. This note was dictated using voice recognition software and make contain errors or omissions. All injections are used with Lidocaine or Bupivacaine and Depo Medrol.
[2024-09-18 11:24] VITALS: BP 117/75; PULSE 75; RESP 14; O2SAT 98; BMI 18.6
== END 2024-09-18 23:59 | disposition home or self-care (01) ==
PROVIDERS: PCP Internal Medicine Adolescent Medicine; Visit Provider Nurse Practitioner Family
DX: M51.369 Other intervertebral disc degeneration, lumbar region without mention of lumbar back pain or lower extremity pain (principal); F17.210 Nicotine dependence, cigarettes, uncomplicated; Z79.899 Other long term (current) drug therapy
CPT/HCPCS: 99212; G0463

== ENCOUNTER 2024-09-27 14:00 | Outpatient (CLI) | payer MEDICARE, SELFPAY ==
--- NOTE | 2024-09-27 14:00 | CT_ITS ---
FINAL REPORT TECHNIQUE: Thin section axial images were obtained from the lung apices to the upper abdomen by computed tomography. Reformatted images were obtained and reviewed. This study was performed with techniques to keep radiation doses al low as reasonably achievable (ALARA). Individualized dose reduction techniques using automated exposure control or adjustment of mA and/or kV according to the patient's size were employed. CLINICAL HISTORY: smoker 1/2 ppd x 55 years COMPARISON: 08/25/2023 FINDINGS: CHEST CT LOW DOSE 79-year-old female, current smoker, [id number] history CTDI vol (mGy): 2.9 DLP (mGy-cm): 96.38 There is no axillary adenopathy. There is no mediastinal or hilar mass or adenopathy. The heart is normal in size. There are moderate coronary artery calcifications present. There is no pericardial or pleural effusion. There is mild emphysema and mild to moderate pulmonary scarring. Lung window images demonstrate a 5 mm pleural-based nodule in the medial right lower lobe, best seen on image #39 of series 3, stable. There are multiple other small nodules again noted, also stable when compared to the prior exam. There is a presumed fissural node on the right side, partially calcified. Several calcified granulomas are present. Limited images of the upper abdomen demonstrate a prior cholecystectomy. IMPRESSION: Lung-RADS category 2. Recommend 12 month follow up low dose chest CT. Reviewed, Interpreted and Dictated by Mino Bull III, MD Transcribed by Mary Ang Authenticated and [facility]
[2024-09-27] MEDS: IPRATROPIUM/ALBUTEROL 3 ML NEB IH (14:49)
== END 2024-09-27 23:59 | disposition home or self-care (01) ==
LOC: RAD 14:00
PROVIDERS: PCP Internal Medicine Adolescent Medicine; Visit Provider Internal Medicine Pulmonary Disease
DX: J44.9 Chronic obstructive pulmonary disease, unspecified (principal); F17.210 Nicotine dependence, cigarettes, uncomplicated
CPT/HCPCS: 71271; 94060; J7620

== ENCOUNTER 2024-10-04 12:58 | Outpatient (POV) | payer MEDICARE, SELFPAY ==
[2024-10-04 13:09] VITALS: BP 116/68; PULSE 77; RESP 16; O2SAT 98; BMI 18.7
--- NOTE | 2024-10-04 13:11 | EXP.PAIN.SOA ---
[facility] Disclaimer: The information contained in this section may have been updated after the patient was seen, as this information can be updated by other users. Medical History Lung nodule Smoking greater than 30 pack years Dyspnea on exertion Screening for lung cancer History of COPD Stopped smoking with greater than 30 pack year history Shortness of breath Pneumonia History of COVID-19 History of gastroesophageal reflux (GERD) History of chest pain Small intestine obstruction Chest pain SOB (shortness of breath) on exertion Fatigue KM (obstructive sleep apnea) COPD (chronic obstructive pulmonary disease) Surgical History History of arthroscopy of shoulder History of hysterectomy History of colonoscopy History of colon resection Family History Other Coronary artery disease Family history of GERD Family history of cancer Family history of diabetes mellitus type II Family history of hyperlipidemia Family history of hypertension Family history of myocardial infarction Social History Smoking Status: Current every day smoker tobacco type: cigarettes packs per day: 1 second hand exposure: No alcohol intake: never counseling provided: none substance use type: denies use current occupational status: other Travel in the last 8 weeks: None household members: none housing: house current occupational exposures/hazards: No caffeine: Yes PM Subjective & Objective Subjective Subjective:: Patient is a pleasant 79-year-old female who presents today for follow-up. Today she rates her pain a 5 out of 10. She denies any new trauma or injury. She does state that the baclofen 5 mg twice a day that we did prescribe did really well and felt like it did help her overall back pain. She does state that she takes 1 at bedtime and it really seems to help her sleep better. Patient states that she does still have pain during the day and has not tried the medication at that timeframe. Her Rich has been reviewed and is appropriate. Review of Systems: General: No recent weight changes, no fever, no sleep disturbances Respiratory: No cough, no shortness of air, no recurring pulmonary infections Cardiovascular/peripheral vascular: No chest pain, no palpitations, no edema, no shortness of breath Gastrointestinal: No new onset incontinence, normal bowel movements reported Genitourinary: No new onset incontinence Musculoskeletal: Low back pain Psychiatric: [Normal mood/affect] Neurological: [Denies weakness in extremities], [denies balance issues] Pain at rest (0-10 scale): 5 Objective Objective:: Physical Exam: General: Alert and oriented x3, no acute distress, pleasant and cooperative Lungs: Respirations even and unlabored, symmetrical chest expansion Eyes: PERRL Musculoskeletal: Flexion and extension of lumbar [spine] somewhat guarded secondary to pain, [antalgic gait noted] Neurological: Speech clear, no gross sensory deficit Has patient had previous pain injection?: No Conservative treatment options previously tried: Home exercise plan Length of treatment: Longer than 12-week Meds Home Medications and Allergies Home Medications ?Medication ?Instructions ?Recorded ?Confirmed ?Type vitamin D3 25 mcg (1,000 unit)-vit 1 tab PO DAILY Supplement 10/02/19 10/02/24 History K2 90 mcg disintegrating tablet fluticasone propionate 50 1 spray intranasal DAILY allergies 10/22/21 10/02/24 History mcg/actuation nasal spray,suspension aspirin 81 mg tablet,delayed 81 mg PO DAILY heart health 01/30/22 10/02/24 History release ipratropium 20 mcg-albuterol 100 1 puff inhalation QIDRT SHORTNESS 02/15/22 10/02/24 History mcg/actuation mist for inhalation OF AIR spironolactone 25 mg tablet 25 mg PO BID Edema 02/15/22 10/02/24 History pantoprazole 40 mg tablet,delayed 40 mg PO DAILY GERD 10/23/22 10/02/24 History release methocarbamol 500 mg tablet 500 mg PO HS 10/19/23 10/02/24 History nitroglycerin 0.4 mg sublingual 0.4 mg sublingual Q5M PRN chest 10/19/23 10/02/24 Rx tablet pain #20 tabs celecoxib 100 mg capsule 100 mg PO DIRECTED 11/25/23 10/02/24 History fluticasone fur. 100 mcg-umeclid 1 inh inhalation DIRECTED 11/25/23 10/02/24 History 62.5 mcg-vilant 25 mcg inhalat.powder (Trelegy Ellipta) linaclotide 145 mcg capsule 145 mcg PO DIRECTED 11/25/23 10/02/24 History (Linzess) metoprolol succinate 50 mg 50 mg PO DAILY #30 tabs 11/25/23 10/02/24 Rx tablet,extended release 24 hr rosuvastatin 20 mg tablet See Rx Instructions .Route 02/15/24 10/02/24 Rx .COMPLEX #90 tabs furosemide 40 mg tablet See Rx Instructions .Route 03/16/24 10/02/24 Rx .COMPLEX #90 tabs baclofen 5 mg tablet 5 mg PO BID #28 tabs 09/18/24 10/02/24 Rx New Prescriptions to Start Prescriptions: Allergies Allergy/AdvReac Type Severity Reaction Status Date / Time atorvastatin AdvReac Mild myalgias Verified 10/02/24 14:44 Assessment and Plan *Assessment and plan (1) Degenerative disc disease, lumbar: Status: Acute Category: Medical Code(s): M51.369 - Other intervertebral disc degeneration, lumbar region without mention of lumbar back pain or lower extremity pain Plan We will refill the patient's baclofen and provide a 2-month supply of this medication. I did discuss with the patient that during the day she can even cut the 5 mg tablet in half and try the lower dosage to see if it provides improvement without causing increased drowsiness. Patient agrees with this plan of care. Patient will return to clinic in 2 months for reevaluation of symptoms and plan of care. Patient has been instructed to contact the clinic with any concerns before the next appointment. Dr. Poole has reviewed this note and agrees with this plan of care. This note was dictated using voice recognition software and make contain errors or omissions. All injections are used with Lidocaine or Bupivacaine and Depo Medrol.
== END 2024-10-04 23:59 | disposition home or self-care (01) ==
PROVIDERS: PCP Internal Medicine Adolescent Medicine; Visit Provider Nurse Practitioner Family
DX: M51.369 Other intervertebral disc degeneration, lumbar region without mention of lumbar back pain or lower extremity pain (principal); F17.210 Nicotine dependence, cigarettes, uncomplicated
CPT/HCPCS: 99212; G0463

== ENCOUNTER 2024-10-16 13:38 | Outpatient (POV) | payer MEDICARE, SELFPAY ==
[2024-10-16 13:55] VITALS: BP 141/77; PULSE 93; RESP 18; O2SAT 96; BMI 17.9
--- NOTE | 2024-10-16 14:22 | A.OFFVIS_ITS ---
[facility] Disclaimer: The information contained in this section may have been updated after the patient was seen, as this information can be updated by other users. Medical History Lung nodule Smoking greater than 30 pack years Dyspnea on exertion Screening for lung cancer History of COPD Stopped smoking with greater than 30 pack year history Shortness of breath Pneumonia History of COVID-19 History of gastroesophageal reflux (GERD) History of chest pain Small intestine obstruction Chest pain SOB (shortness of breath) on exertion Fatigue KM (obstructive sleep apnea) COPD (chronic obstructive pulmonary disease) Surgical History History of arthroscopy of shoulder History of hysterectomy History of colonoscopy History of colon resection Family History Other Coronary artery disease Family history of GERD Family history of cancer Family history of diabetes mellitus type II Family history of hyperlipidemia Family history of hypertension Family history of myocardial infarction Social History Smoking Status: Current every day smoker tobacco type: cigarettes packs per day: 1 second hand exposure: No alcohol intake: never counseling provided: none substance use type: denies use current occupational status: other household members: none housing: house current occupational exposures/hazards: No caffeine: Yes PM Subjective & Objective Subjective Subjective:: Patient is a pleasant 79-year-old female who presents today for worsening pain. Today she rates her pain a 10 out of 10. Patient states the pain is all in her low back and denies any recent falls or injuries. Patient states that previously the baclofen 5 mg twice a day was significantly helping however now it just does not seem like it is doing anything. Patient states the pain is worse with increased activity or certain movements. Patient states she can even put on her shoes without significant pain. Patient denies any radiating symptoms into her legs. She does state the pain is interfering with her ability perform activities of daily living such as cooking and cleaning. Patient is interested in any help we may be able to provide because nothing is seeming to make it better. Her Rich has been reviewed and is appropriate. Review of Systems: General: No recent weight changes, no fever, no sleep disturbances Respiratory: No cough, no shortness of air, no recurring pulmonary infections Cardiovascular/peripheral vascular: No chest pain, no palpitations, no edema, no shortness of breath Gastrointestinal: No new onset incontinence, normal bowel movements reported Genitourinary: No new onset incontinence Musculoskeletal: Low back pain Psychiatric: [Normal mood/affect] Neurological: [Denies weakness in extremities], [denies balance issues] Pain at rest (0-10 scale): 10 Objective Objective:: Physical Exam: General: Alert and oriented x3, no acute distress, pleasant and cooperative Lungs: Respirations even and unlabored, symmetrical chest expansion Eyes: PERRL Musculoskeletal: Flexion and extension of lumbar [spine] somewhat guarded secondary to pain, [antalgic gait noted] positive Kemps test Neurological: Speech clear, no gross sensory deficit Has patient had previous pain injection?: No Conservative treatment options previously tried: Home exercise plan Length of treatment: Longer than 12 weeks Meds Home Medications and Allergies Home Medications ?Medication ?Instructions ?Recorded ?Confirmed ?Type vitamin D3 25 mcg (1,000 unit)-vit 1 tab PO DAILY Supplement 10/02/19 10/16/24 History K2 90 mcg disintegrating tablet fluticasone propionate 50 1 spray intranasal DAILY allergies 10/22/21 10/16/24 History mcg/actuation nasal spray,suspension aspirin 81 mg tablet,delayed 81 mg PO DAILY heart health 01/30/22 10/16/24 History release ipratropium 20 mcg-albuterol 100 1 puff inhalation QIDRT SHORTNESS 02/15/22 10/16/24 History mcg/actuation mist for inhalation OF AIR spironolactone 25 mg tablet 25 mg PO BID Edema 02/15/22 10/16/24 History pantoprazole 40 mg tablet,delayed 40 mg PO DAILY GERD 10/23/22 10/16/24 History release methocarbamol 500 mg tablet 500 mg PO HS 10/19/23 10/16/24 History nitroglycerin 0.4 mg sublingual 0.4 mg sublingual Q5M PRN chest 10/19/23 10/16/24 Rx tablet pain #20 tabs celecoxib 100 mg capsule 100 mg PO DIRECTED 11/25/23 10/16/24 History fluticasone fur. 100 mcg-umeclid 1 inh inhalation DIRECTED 11/25/23 10/16/24 History 62.5 mcg-vilant 25 mcg inhalat.powder (Trelegy Ellipta) linaclotide 145 mcg capsule 145 mcg PO DIRECTED 11/25/23 10/16/24 History (Linzess) metoprolol succinate 50 mg 50 mg PO DAILY #30 tabs 11/25/23 10/16/24 Rx tablet,extended release 24 hr rosuvastatin 20 mg tablet See Rx Instructions .Route 02/15/24 10/16/24 Rx .COMPLEX #90 tabs furosemide 40 mg tablet See Rx Instructions .Route 03/16/24 10/16/24 Rx .COMPLEX #90 tabs baclofen 5 mg tablet 5 mg PO BID #60 tabs 10/04/24 10/16/24 Rx acetaminophen 300 mg-codeine 30 mg 1 tab PO DAILY #30 tabs 10/16/24 Rx tablet New Prescriptions to Start Prescriptions: acetaminophen-codeine Renetta Arias Allergies Allergy/AdvReac Type Severity Reaction Status Date / Time atorvastatin AdvReac Mild myalgias Verified 10/02/24 14:44 Assessment and Plan *Assessment and plan (1) Lumbar facet arthropathy: Status: Acute Category: Medical Code(s): M47.816 - Spondylosis without myelopathy or radiculopathy, lumbar region (2) Degenerative disc disease, lumbar: Status: Acute Category: Medical Code(s): M51.369 - Other intervertebral disc degeneration, lumbar region without mention of lumbar back pain or lower extremity pain Plan Patient is experiencing significant pain throughout her low back with limited range of motion and a positive Kemps test. I did discuss with the patient that I do believe she would benefit from a lumbar medial branch block. Risk and benefits were discussed with patient and she would like to proceed forward with this plan of care. Patient has tried and failed conservative therapy including oral medications, heat and ice, topicals, at home stretching exercise for longer than 12 weeks. Patient was counseled that she does get significant relief with the lumbar medial branch block we will plan on proceeding forward with a repeat block with the plan to proceed forward with a lumbar RFA at a later date if she does get significant improvement. Patient agrees with this plan of care. Patient will be scheduled for lumbar medial branch block L4-L5 and L5-S1 under fluoroscopy. Patient is unable to be scheduled until November 14. We will put her on a cancellation list as well as I will send in a prescription of compound cream and send in a temporary dose of Tylenol 3 daily for a 1 month supply. Patient has been instructed to contact the clinic with any concerns before the next appointment. Dr. Poole has reviewed this note and agrees with this plan of care. This note was dictated using voice recognition software and make contain errors or omissions. All injections are used with Lidocaine or Bupivacaine and Depo Medrol.
== END 2024-10-16 23:59 | disposition home or self-care (01) ==
PROVIDERS: PCP Internal Medicine Adolescent Medicine; Visit Provider Nurse Practitioner Family
DX: M47.816 Spondylosis without myelopathy or radiculopathy, lumbar region (principal); M51.369 Other intervertebral disc degeneration, lumbar region without mention of lumbar back pain or lower extremity pain; F17.210 Nicotine dependence, cigarettes, uncomplicated; Z73.89 Other problems related to life management difficulty; Z79.899 Other long term (current) drug therapy
CPT/HCPCS: 99212; G0463

== ENCOUNTER 2024-11-14 11:01 | Day surgery (SDC) | payer MEDICARE, SELFPAY ==
[2024-11-14 11:54] VITALS: BP 131/59; PULSE 82; RESP 16; TEMP 36.5; O2SAT 90; BMI 18.7
[2024-11-14 12:26] VITALS: BP 115/68; PULSE 72; RESP 16; O2SAT 98
--- NOTE | 2024-11-14 12:31 | P.PCN_ITS ---
Procedure Date: 11/14/24 Time: 11:50 Anesthesiologist:: Lenny Garsia CRNA Complications:: None Pre-procedure Diagnosis:: Degenerative disc lumbar spine multilevels. Lumbar radiculopathy. Lumbar spondylosis. Multilevel lumbar facet arthropathy. Post-procedure Diagnosis:: Same. Indications for Procedure:: Patient is a very pleasant 79-year-old female who comes our clinic today for ROUND ONE of lumbar medial branch blocks/facet injections L4-5, L5-S1 bilaterally. Patient describes low lumbar back pain as constant, dull, aching. She has difficulty with lumbar flexion, extension, left and right rotation. Standing increases pain significantly. She rates her pain 7/10. Procedure Details:: Informed consent was obtained and the risk and benefits of the procedure was explained to the patient. Patient was taken to the procedure room where noninvasive monitors were placed, including noninvasive blood pressure cuff as well as pulse oximeter. The area over the lumbar spine was cleansed using chlorhexidine as a cleansing solution. I anesthetized the skin and subcutaneous tissues with 1% Lidocaine. I placed 22-gauge spinal needles into the facet joint/ medial branches of L4-L5, and L5-S1] bilaterally. Needle placement was confirmed with fluoroscopy. After confirmation of needle placement, each site was injected with 1 mL of 1% lidocaine and 0.25 % Marcaine and 10 mg of Depo- Medrol. A total of 80 mg of depo medrol was used for bilateral medial branch blocks of L4-L5, and L5-S1] bilaterally. Patient tolerated the procedure without difficulty. There were no complications. Plan and Disposition:: Patient was discharged without incident.
[2024-11-14] MEDS: BUPIVACAINE 0.25% 10ML INJ 25 MG IJ (13:08)
[2024-11-14] MEDS: methylPREDNISolone ACETATE 80MG/ML VIAL 80 MG (13:08)
[2024-11-14] MEDS: LIDOCAINE 1% 5ML PF VIAL 5 ML (13:08)
== END 2024-11-14 12:26 | disposition home or self-care (01) ==
LOC: SC.PAINP 11:02
PROVIDERS: PCP Internal Medicine Adolescent Medicine; Visit Provider Nurse Anesthetist, Certified Registered
DX: M47.816 Spondylosis without myelopathy or radiculopathy, lumbar region (principal); M51.369 Other intervertebral disc degeneration, lumbar region without mention of lumbar back pain or lower extremity pain
CPT/HCPCS: 64493; 64494; J1010

== ENCOUNTER 2024-11-29 14:19 | Outpatient (POV) | payer MEDICARE, SELFPAY ==
--- NOTE | 2024-11-29 | XR_ITS ---
FINAL REPORT CLINICAL HISTORY: LBP hx of injections Nov.14 COMPARISON: 12/01/2022 FINDINGS: LUMBOSACRAL SPINE SERIES Five views of the lumbosacral spine were obtained. Mild superior endplate compression fractures are seen at L2, L3, and L4. There are post kyphoplasty changes of T11 and L1. Osteopenia is noted. There is mild dextroscoliosis with no significant subluxation. Mild degenerative disc disease is noted. IMPRESSION: Multilevel fractures. MRI would be necessary to better assess acuity of injury. Reviewed, Interpreted and Dictated by Bob Griffin MD Transcribed by Dianne Lucas Authenticated and [facility]
--- NOTE | 2024-11-29 14:51 | A.OFFVIS_ITS ---
[facility] Disclaimer: The information contained in this section may have been updated after the patient was seen, as this information can be updated by other users. Medical History Lung nodule Smoking greater than 30 pack years Dyspnea on exertion Screening for lung cancer History of COPD Stopped smoking with greater than 30 pack year history Shortness of breath Pneumonia History of COVID-19 History of gastroesophageal reflux (GERD) History of chest pain Small intestine obstruction Chest pain SOB (shortness of breath) on exertion Fatigue KM (obstructive sleep apnea) COPD (chronic obstructive pulmonary disease) Surgical History History of arthroscopy of shoulder History of hysterectomy History of colonoscopy History of colon resection Family History Other Coronary artery disease Family history of GERD Family history of cancer Family history of diabetes mellitus type II Family history of hyperlipidemia Family history of hypertension Family history of myocardial infarction Social History Smoking Status: Current every day smoker tobacco type: cigarettes packs per day: 1 second hand exposure: No alcohol intake: never counseling provided: none substance use type: denies use current occupational status: other Travel in the last 8 weeks: None household members: none housing: house current occupational exposures/hazards: No caffeine: Yes PM Subjective & Objective Subjective Subjective:: Patient is a pleasant 79-year-old female who presents today for follow-up of a lumbar medial branch block bilaterally L4-L5 and L5-S1 on 11/14/2024. Patient rates her pain today a 7 out of 10. Patient denies any new falls or injuries however states that the injection only lasted while the numbing medication was present. She states that she feels like she is back to her baseline with chronic pain across her low back that does radiate into her ribs. Patient states that the pain has just progressively worsened and it is really severe now. Patient does have a history of compression fractures and osteoporosis. Her Rich has been reviewed and is appropriate with. Review of Systems: General: No recent weight changes, no fever, no sleep disturbances Respiratory: No cough, no shortness of air, no recurring pulmonary infections Cardiovascular/peripheral vascular: No chest pain, no palpitations, no edema, no shortness of breath Gastrointestinal: No new onset incontinence, normal bowel movements reported Genitourinary: No new onset incontinence Musculoskeletal: Low back pain, rib pain Psychiatric: [Normal mood/affect] Neurological: [Denies weakness in extremities], [denies balance issues] Pain at rest (0-10 scale): 7 Objective Objective:: Physical Exam: General: Alert and oriented x3, no acute distress, pleasant and cooperative Lungs: Respirations even and unlabored, symmetrical chest expansion Eyes: PERRL Musculoskeletal: Flexion and extension of lumbar [spine] somewhat guarded secondary to pain, [antalgic gait noted] Neurological: Speech clear, no gross sensory deficit Has patient had previous pain injection?: Yes Percent improvement in pain since last injection: Lasting 3 to 4 hours with numbing medication Conservative treatment options previously tried: Home exercise plan Length of treatment: Longer than 12 weeks Meds Home Medications and Allergies Home Medications ?Medication ?Instructions ?Recorded ?Confirmed ?Type vitamin D3 25 mcg (1,000 unit)-vit 1 tab PO DAILY Supplement 10/02/19 11/14/24 History K2 90 mcg disintegrating tablet fluticasone propionate 50 1 spray intranasal DAILY allergies 10/22/21 11/14/24 History mcg/actuation nasal spray,suspension aspirin 81 mg tablet,delayed 81 mg PO DAILY heart health 01/30/22 11/14/24 History release ipratropium 20 mcg-albuterol 100 1 puff inhalation QIDRT SHORTNESS 02/15/22 11/14/24 History mcg/actuation mist for inhalation OF AIR spironolactone 25 mg tablet 25 mg PO BID Edema 02/15/22 11/14/24 History pantoprazole 40 mg tablet,delayed 40 mg PO DAILY GERD 10/23/22 11/14/24 History release nitroglycerin 0.4 mg sublingual 0.4 mg sublingual Q5M PRN chest 10/19/23 11/14/24 Rx tablet pain #20 tabs celecoxib 100 mg capsule 100 mg PO DIRECTED 11/25/23 11/14/24 History fluticasone fur. 100 mcg-umeclid 1 inh inhalation DIRECTED 11/25/23 11/14/24 History 62.5 mcg-vilant 25 mcg inhalat.powder (Trelegy Ellipta) linaclotide 145 mcg capsule 145 mcg PO DIRECTED 11/25/23 11/14/24 History (Linzess) metoprolol succinate 50 mg 50 mg PO DAILY #30 tabs 11/25/23 11/14/24 Rx tablet,extended release 24 hr rosuvastatin 20 mg tablet See Rx Instructions .Route 02/15/24 11/14/24 Rx .COMPLEX #90 tabs furosemide 40 mg tablet See Rx Instructions .Route 03/16/24 11/14/24 Rx .COMPLEX #90 tabs baclofen 5 mg tablet 5 mg PO BID #60 tabs 10/04/24 11/14/24 Rx acetaminophen 300 mg-codeine 30 mg 1 tab PO DAILY #30 tabs 11/29/24 Rx tablet methocarbamol 500 mg tablet 500 mg PO BID #60 tabs 11/29/24 Rx New Prescriptions to Start Prescriptions: acetaminophen-codeine Arias,Renetta A methocarbamol Arias,Renetta A Allergies Allergy/AdvReac Type Severity Reaction Status Date / Time atorvastatin AdvReac Mild myalgias Verified 10/02/24 14:44 Assessment and Plan *Assessment and plan (1) Lumbar facet arthropathy: Status: Acute Category: Medical Code(s): M47.816 - Spondylosis without myelopathy or radiculopathy, lumbar region (2) Degenerative disc disease, lumbar: Status: Acute Category: Medical Code(s): M51.369 - Other intervertebral disc degeneration, lumbar region without mention of lumbar back pain or lower extremity pain Plan Due to the patient's complaints of severe pain in and around her low back that does radiate towards her rib and her chronic history of compression fractures with osteoporosis I will order the patient an x-ray to rule out any additional fractures. I will send in refills of her methocarbamol 500 mg twice daily and also send in a refill on her methocarbamol and change it to twice a day as well as send in a prescription of the Tylenol 3 daily. Patient will return to clinic in 2 weeks for reevaluation of symptoms and plan of care. Risks and benefits of the medication have been explained in detail to the patient. The patient does understand the risk of dependence on the medication when given over a prolonged period. Patient has been advised of risks of oversedation with the prescribed medication. Narcan has been offered to the paitent in the event of oversedation. Patient has been advised that a family member should also be educated regarding administration of Narcan. The patient has been advised to consult with his/her primary care provider and pharmacist regarding drug-drug interaction of medications currently prescribed. Patient has been prescribed a controlled substance after being counseled on the medication, medication safety, and possible side effects. Opioid contract was reviewed and signed by the patient, and that they have agreed to all of the terms set forth by our compliance program. A UDS is needed to verify patient's compliance with our office pain contract. This is ordered based off specific treatments related to chronic pain with the potential to abuse certain medications. Patient has been instructed to contact the clinic with any concerns before the next appointment. Dr. Poole has reviewed this note and agrees with this plan of care. This note was dictated using voice recognition software and make contain errors or omissions.
[2024-11-29 14:57] VITALS: BP 121/63; PULSE 83; RESP 18; O2SAT 96; BMI 18.0
--- NOTE | 2024-11-30 09:11 | PC.NURSE ---
Provider storm ponce reviewed pt L-spine xray report. Provider has written out an order for MRI of L-spine no contrast for pt. Requests that I call pt to notify her of concerns of compression fractures on xray report and that we are ordering an MRI. Called pt, no answer, voicemail left requesting a return call.
== END 2024-11-29 23:59 | disposition home or self-care (01) ==
PROVIDERS: PCP Internal Medicine Adolescent Medicine; Visit Provider Nurse Practitioner Family
DX: M47.816 Spondylosis without myelopathy or radiculopathy, lumbar region (principal); M51.369 Other intervertebral disc degeneration, lumbar region without mention of lumbar back pain or lower extremity pain; F17.210 Nicotine dependence, cigarettes, uncomplicated; Z79.899 Other long term (current) drug therapy
CPT/HCPCS: 72110; 99212; G0463

== ENCOUNTER 2024-12-08 14:36 | Outpatient (CLI) | payer MEDICARE, SELFPAY ==
--- NOTE | 2024-12-08 14:38 | MR_ITS ---
FINAL REPORT CLINICAL HISTORY: hx of COMPRESSION FX lbp COMPARISON: 12/22/2022 FINDINGS: Multiplanar MR imaging of the lumbar spine was performed without contrast. On the sagittal T2-weighted images, there is abnormal decreased signal within the T11 and L1 vertebra consistent with interval kyphoplasty. There is approximately 50% loss of height of T11 and approximately 30% loss of height at the superior endplate of L1. There is compression deformity involving the superior endplate of T12, L2, and L4 each measuring 20% with associated marrow edema at these levels. Findings are consistent with acute-subacute insufficiency fractures. L1-2: There is no significant canal stenosis or neural foraminal narrowing. L2-3: There is no significant canal stenosis or neural foraminal narrowing. L3-4: Mild facet hypertrophy. L4-5: There is no significant canal stenosis or neural foraminal narrowing. L5-S1: Moderate diffuse disc bulge. Moderate bilateral neural foraminal narrowing. IMPRESSION: Interval kyphoplasty at T11 and L1. New compression deformities at T12, L2, and L4. Reviewed, Interpreted and Dictated by Olu Bailey MD Transcribed by Dianne Lucas Authenticated and . [facility]
== END 2024-12-08 23:59 | disposition home or self-care (01) ==
LOC: RAD 14:36
PROVIDERS: PCP Internal Medicine Adolescent Medicine; Visit Provider Nurse Practitioner Family
DX: M54.9 Dorsalgia, unspecified (principal); S32.020A Wedge compression fracture of second lumbar vertebra, initial encounter for closed fracture; S32.030A Wedge compression fracture of third lumbar vertebra, initial encounter for closed fracture; S32.040A Wedge compression fracture of fourth lumbar vertebra, initial encounter for closed fracture
CPT/HCPCS: 72148

== ENCOUNTER 2024-12-13 13:20 | Outpatient (POV) | payer MEDICARE, SELFPAY ==
[2024-12-13 13:39] VITALS: BP 117/67; PULSE 78; RESP 16; O2SAT 98; BMI 18.8
--- NOTE | 2024-12-13 14:08 | A.OFFVIS_ITS ---
[facility] Disclaimer: The information contained in this section may have been updated after the patient was seen, as this information can be updated by other users. Medical History Lung nodule Smoking greater than 30 pack years Dyspnea on exertion Screening for lung cancer History of COPD Stopped smoking with greater than 30 pack year history Shortness of breath Pneumonia History of COVID-19 History of gastroesophageal reflux (GERD) History of chest pain Small intestine obstruction Chest pain SOB (shortness of breath) on exertion Fatigue KM (obstructive sleep apnea) COPD (chronic obstructive pulmonary disease) Surgical History History of arthroscopy of shoulder History of hysterectomy History of colonoscopy History of colon resection Family History Other Coronary artery disease Family history of GERD Family history of cancer Family history of diabetes mellitus type II Family history of hyperlipidemia Family history of hypertension Family history of myocardial infarction Social History Smoking Status: Current every day smoker tobacco type: cigarettes packs per day: 1 second hand exposure: No alcohol intake: never counseling provided: none substance use type: denies use current occupational status: other Travel in the last 8 weeks: None household members: none housing: house current occupational exposures/hazards: No caffeine: Yes PM Subjective & Objective Subjective Subjective:: Patient is a pleasant 79-year-old female who presents today for follow-up of x- ray and MRI. Today she rates her pain a 2 out of 10. She does state that her pain has actually improved from our last visit. Patient states that the muscle relaxer did significantly help however the last few days she has not even needed it. She states that the pain has eased down quite a bit and she is doing well overall. Patient was prescribed methocarbamol 500 mg twice a day and Tylenol 3 daily. Her Rich has been reviewed and is appropriate. Review of Systems: General: No recent weight changes, no fever, no sleep disturbances Respiratory: No cough, no shortness of air, no recurring pulmonary infections Cardiovascular/peripheral vascular: No chest pain, no palpitations, no edema, no shortness of breath Gastrointestinal: No new onset incontinence, normal bowel movements reported Genitourinary: No new onset incontinence Musculoskeletal: Low back pain Psychiatric: [Normal mood/affect] Neurological: [Denies weakness in extremities], [denies balance issues] Pain at rest (0-10 scale): 2 Objective Objective:: Physical Exam: General: Alert and oriented x3, no acute distress, pleasant and cooperative Lungs: Respirations even and unlabored, symmetrical chest expansion Eyes: PERRL Musculoskeletal: Flexion and extension of lumbar [spine] somewhat guarded secondary to pain, [antalgic gait noted] Neurological: Speech clear, no gross sensory deficit Has patient had previous pain injection?: No Conservative treatment options previously tried: Home exercise plan Length of treatment: Longer than 12-week Meds Home Medications and Allergies Home Medications ?Medication ?Instructions ?Recorded ?Confirmed ?Type vitamin D3 25 mcg (1,000 unit)-vit 1 tab PO DAILY Supplement 10/02/19 12/13/24 History K2 90 mcg disintegrating tablet fluticasone propionate 50 1 spray intranasal DAILY allergies 10/22/21 12/13/24 History mcg/actuation nasal spray,suspension aspirin 81 mg tablet,delayed 81 mg PO DAILY heart health 01/30/22 12/13/24 History release ipratropium 20 mcg-albuterol 100 1 puff inhalation QIDRT SHORTNESS 02/15/22 12/13/24 History mcg/actuation mist for inhalation OF AIR spironolactone 25 mg tablet 25 mg PO BID Edema 02/15/22 12/13/24 History pantoprazole 40 mg tablet,delayed 40 mg PO DAILY GERD 10/23/22 12/13/24 History release nitroglycerin 0.4 mg sublingual 0.4 mg sublingual Q5M PRN chest 10/19/23 12/13/24 Rx tablet pain #20 tabs celecoxib 100 mg capsule 100 mg PO DIRECTED 11/25/23 12/13/24 History fluticasone fur. 100 mcg-umeclid 1 inh inhalation DIRECTED 11/25/23 12/13/24 History 62.5 mcg-vilant 25 mcg inhalat.powder (Trelegy Ellipta) linaclotide 145 mcg capsule 145 mcg PO DIRECTED 11/25/23 12/13/24 History (Linzess) metoprolol succinate 50 mg 50 mg PO DAILY #30 tabs 11/25/23 12/13/24 Rx tablet,extended release 24 hr rosuvastatin 20 mg tablet See Rx Instructions .Route 02/15/24 12/13/24 Rx .COMPLEX #90 tabs furosemide 40 mg tablet See Rx Instructions .Route 03/16/24 12/13/24 Rx .COMPLEX #90 tabs baclofen 5 mg tablet 5 mg PO BID #60 tabs 10/04/24 12/13/24 Rx acetaminophen 300 mg-codeine 30 mg 1 tab PO DAILY #30 tabs 11/29/24 12/13/24 Rx tablet methocarbamol 500 mg tablet 500 mg PO BID #60 tabs 11/29/24 12/13/24 Rx New Prescriptions to Start Prescriptions: Allergies Allergy/AdvReac Type Severity Reaction Status Date / Time atorvastatin AdvReac Mild myalgias Verified 10/02/24 14:44 Assessment and Plan *Assessment and plan (1) Degenerative disc disease, lumbar: Status: Acute Category: Medical Code(s): M51.369 - Other intervertebral disc degeneration, lumbar region without mention of lumbar back pain or lower extremity pain (2) Compression fracture: Status: Acute Category: Medical (3) Low back pain: Status: Acute Category: Medical Code(s): M54.50 - Low back pain, unspecified (4) Lumbar facet arthropathy: Status: Acute Category: Medical Code(s): M47.816 - Spondylosis without myelopathy or radiculopathy, lumbar region Plan I did review over with the patient regarding her MRI findings and due to the extent of 3 additional compression fractures with no fall I really do suggest that she be put on medication for osteoporosis. Patient states that her primary care has had her on Prolia injections and calcitonin in the past however she was told that she no longer needed these. I did discuss with her at her last visit we did reach out to their office requesting that she be put on something for the osteoporosis. They did contact her office to so they were sending her to a specialist. I did review this with the patient today and recommend that she call their office. Patient states that she has not heard anything from them. I did also director of group counseling program the patient that due to the extent of compression fractures and history that she may be a beneficial candidate of a pump trial however due to her age that we can also continue the muscle relaxer and Tylenol 3 as needed. Patient states that she feels like she is doing well right now and does not need any refills. We will follow-up with her in 1 month. Patient agrees with this plan of care. Patient has been instructed to contact the clinic with any concerns before the next appointment. Dr. Poole has reviewed this note and agrees with this plan of care. This note was dictated using voice recognition software and make contain errors or omissions. All injections are used with Lidocaine, Bupivacaine and Depo Medrol. Occasionally urine drug screen is needed to verify patient's compliance with our office pain contract. This is ordered based off specific treatments related to chronic pain with the potential to abuse certain medications.
== END 2024-12-13 23:59 | disposition home or self-care (01) ==
LOC: SC.PAIN 13:20
PROVIDERS: PCP Internal Medicine Adolescent Medicine; Visit Provider Nurse Practitioner Family
DX: M51.360 Other intervertebral disc degeneration, lumbar region with discogenic back pain only (principal); M47.816 Spondylosis without myelopathy or radiculopathy, lumbar region; F17.210 Nicotine dependence, cigarettes, uncomplicated; M48.55XA Collapsed vertebra, not elsewhere classified, thoracolumbar region, initial encounter for fracture
CPT/HCPCS: 99212; G0463

== ENCOUNTER 2025-01-12 13:05 | Outpatient (POV) | payer MEDICARE, SELFPAY ==
--- NOTE | 2025-01-12 13:14 | EXP.PAIN.SOA ---
[facility] Disclaimer: The information contained in this section may have been updated after the patient was seen, as this information can be updated by other users. Medical History Lung nodule Smoking greater than 30 pack years Dyspnea on exertion Screening for lung cancer History of COPD Stopped smoking with greater than 30 pack year history Shortness of breath Pneumonia History of COVID-19 History of gastroesophageal reflux (GERD) History of chest pain Small intestine obstruction Chest pain SOB (shortness of breath) on exertion Fatigue KM (obstructive sleep apnea) COPD (chronic obstructive pulmonary disease) Surgical History History of arthroscopy of shoulder History of hysterectomy History of colonoscopy History of colon resection Family History Other Coronary artery disease Family history of GERD Family history of cancer Family history of diabetes mellitus type II Family history of hyperlipidemia Family history of hypertension Family history of myocardial infarction Social History Smoking Status: Current every day smoker tobacco type: cigarettes packs per day: 1 second hand exposure: No alcohol intake: never counseling provided: none substance use type: denies use current occupational status: other Travel in the last 8 weeks: None household members: none housing: house current occupational exposures/hazards: No caffeine: Yes PM Subjective & Objective Subjective Subjective:: Patient is a pleasant 79-year-old female who presents today for 1 month follow-up. Today she rates her pain a 3 out of 10. She denies any new falls or injuries. At her last visit we had discussed that her primary care was supposedly sending her to a specialist. She does state that she went there yesterday and had labs drawn and yet when she discussed about the referral to a specialist for the osteoporosis they acted as if they did not know anything about it. Patient states that the nurse ended up calling her back with her lab results and said everything was fine with no medication changes. Patient states she is still not been prescribed anything for the osteoporosis. She is currently managed with methocarbamol 500 mg twice a day and Tylenol 3 daily. She denies any side effects. She does state that this medication has really helped and that she does feel like she is able to sleep easier and get up and go the next day. Her Rich has been reviewed and is appropriate. Review of Systems: General: No recent weight changes, no fever, no sleep disturbances Respiratory: No cough, no shortness of air, no recurring pulmonary infections Cardiovascular/peripheral vascular: No chest pain, no palpitations, no edema, no shortness of breath Gastrointestinal: No new onset incontinence, normal bowel movements reported Genitourinary: No new onset incontinence Musculoskeletal: Chronic back pain Psychiatric: [Normal mood/affect] Neurological: [Denies weakness in extremities], [denies balance issues] Pain at rest (0-10 scale): 3 Objective Objective:: Physical Exam: General: Alert and oriented x3, no acute distress, pleasant and cooperative Lungs: Respirations even and unlabored, symmetrical chest expansion Eyes: PERRL Musculoskeletal: Flexion and extension of lumbar [spine] somewhat guarded secondary to pain, [antalgic gait noted] Neurological: Speech clear, no gross sensory deficit Has patient had previous pain injection?: No Conservative treatment options previously tried: Home exercise plan Length of treatment: Longer than 12 weeks Meds Home Medications and Allergies Home Medications ?Medication ?Instructions ?Recorded ?Confirmed ?Type vitamin D3 25 mcg (1,000 unit)-vit 1 tab PO DAILY Supplement 10/02/19 01/12/25 History K2 90 mcg disintegrating tablet fluticasone propionate 50 1 spray intranasal DAILY allergies 10/22/21 01/12/25 History mcg/actuation nasal spray,suspension aspirin 81 mg tablet,delayed 81 mg PO DAILY heart health 01/30/22 01/12/25 History release ipratropium 20 mcg-albuterol 100 1 puff inhalation QIDRT SHORTNESS 02/15/22 01/12/25 History mcg/actuation mist for inhalation OF AIR spironolactone 25 mg tablet 25 mg PO BID Edema 02/15/22 01/12/25 History pantoprazole 40 mg tablet,delayed 40 mg PO DAILY GERD 10/23/22 01/12/25 History release nitroglycerin 0.4 mg sublingual 0.4 mg sublingual Q5M PRN chest 10/19/23 01/12/25 Rx tablet pain #20 tabs celecoxib 100 mg capsule 100 mg PO DIRECTED 11/25/23 01/12/25 History fluticasone fur. 100 mcg-umeclid 1 inh inhalation DIRECTED 11/25/23 01/12/25 History 62.5 mcg-vilant 25 mcg inhalat.powder (Trelegy Ellipta) linaclotide 145 mcg capsule 145 mcg PO DIRECTED 11/25/23 01/12/25 History (Linzess) metoprolol succinate 50 mg 50 mg PO DAILY #30 tabs 11/25/23 01/12/25 Rx tablet,extended release 24 hr rosuvastatin 20 mg tablet See Rx Instructions .Route 02/15/24 01/12/25 Rx .COMPLEX #90 tabs furosemide 40 mg tablet See Rx Instructions .Route 03/16/24 01/12/25 Rx .COMPLEX #90 tabs baclofen 5 mg tablet 5 mg PO BID #60 tabs 10/04/24 01/12/25 Rx acetaminophen 300 mg-codeine 30 mg 1 tab PO DAILY #30 tabs 01/12/25 Rx tablet methocarbamol 500 mg tablet 500 mg PO BID #60 tabs 01/12/25 Rx raloxifene 60 mg tablet 60 mg PO DAILY #30 tabs 01/12/25 Rx New Prescriptions to Start Prescriptions: acetaminophen-codeine Arias,Renetta A methocarbamol Arias,Renetta A raloxifene Arias,Renetta A Allergies Allergy/AdvReac Type Severity Reaction Status Date / Time atorvastatin AdvReac Mild myalgias Verified 10/02/24 14:44 Assessment and Plan *Assessment and plan (1) Compression fracture: Status: Acute Category: Medical (2) Lumbar facet arthropathy: Status: Acute Category: Medical Code(s): M47.816 - Spondylosis without myelopathy or radiculopathy, lumbar region (3) Degenerative disc disease, lumbar: Status: Acute Category: Medical Code(s): M51.369 - Other intervertebral disc degeneration, lumbar region without mention of lumbar back pain or lower extremity pain Plan I will make sure she has refills on her methocarbamol and Tylenol 3 and provide a 1-month supply of this medication. I did discuss with the patient that we will reach back out to Dr. Martinez's office to review over whether she is being sent to a specialist regarding the osteoporosis or if they are planning on adding these medications. I did discuss with her due to the fact that she still is not on any medication we will send a prescription raloxifene 60 mg daily. patient will return to clinic in 3 months. Risks and benefits of the medication have been explained in detail to the patient. The patient does understand the risk of dependence on the medication when given over a prolonged period. Patient has been advised of risks of oversedation with the prescribed medication. Narcan has been offered to the paitent in the event of oversedation. Patient has been advised that a family member should also be educated regarding administration of Narcan. The patient has been advised to consult with his/her primary care provider and pharmacist regarding drug-drug interaction of medications currently prescribed. Patient has been prescribed a controlled substance after being counseled on the medication, medication safety, and possible side effects. Opioid contract was reviewed and signed by the patient, and that they have agreed to all of the terms set forth by our compliance program. A UDS is needed to verify patient's compliance with our office pain contract. This is ordered based off specific treatments related to chronic pain with the potential to abuse certain medications. Patient has been instructed to contact the clinic with any concerns before the next appointment. Dr. Poole has reviewed this note and agrees with this plan of care. This note was dictated using voice recognition software and make contain errors or omissions.
[2025-01-12 13:21] VITALS: BP 118/69; PULSE 66; RESP 14; O2SAT 98; BMI 18.3
== END 2025-01-12 23:59 | disposition home or self-care (01) ==
PROVIDERS: PCP Internal Medicine Adolescent Medicine; Visit Provider Nurse Practitioner Family
DX: M47.816 Spondylosis without myelopathy or radiculopathy, lumbar region (principal); M51.369 Other intervertebral disc degeneration, lumbar region without mention of lumbar back pain or lower extremity pain; F17.210 Nicotine dependence, cigarettes, uncomplicated
CPT/HCPCS: 99212; G0463

== ENCOUNTER 2025-01-18 08:41 | Outpatient (CLI) | payer MEDICARE, SELFPAY ==
--- NOTE | 2025-01-18 08:44 | XR_ITS ---
FINAL REPORT TECHNIQUE: Bone densitometry calculations of the lumbar spine and left hip were obtained. CLINICAL HISTORY: SCREENING FINDINGS: Using L1-4, the bone mineral density of the spine is 0.9-1 g/cm2, corresponding to T-score of -1.1. Using the left hip, the bone mineral density of the femoral neck is 0.548 g/cm2, corresponding to a T-score of -3.2. Using the left hip, the bone mineral density of the femoral neck is 0.474 g/cm2, corresponding to a T-score of -3.4. Using the one third radius, the bone mineral density of the radius is 0.527 g/cm2, corresponding to a T-score of -2.8 NOTE: T-score: Standard deviation compared with peak bone mass of young adult mean. *Following the recommendations of the International Society of Bone densitometry, classification of hip BMD is based on the lower of two T-scores; total hip or femoral neck. IMPRESSION: Bone mineral density of both hips and the radius consistent with osteoporosis. Diminished bone mineral density of the lumbar spine consistent with osteopenia. FRAX was not reported because patient is being treated for osteoporosis. Reviewed, Interpreted and Dictated by Bob Griffin MD Transcribed by Aure Nugent Authenticated and . [facility]
== END 2025-01-18 23:59 | disposition home or self-care (01) ==
LOC: RAD 08:42
PROVIDERS: PCP Internal Medicine Adolescent Medicine; Visit Provider Internal Medicine Adolescent Medicine
DX: M81.0 Age-related osteoporosis without current pathological fracture (principal)
CPT/HCPCS: 77080

== ENCOUNTER 2025-01-30 13:55 | Outpatient (CLI) | payer MEDICARE, SELFPAY ==
[2025-01-30 14:35] LABS: Basophils # 0.1 K/mm3 (0-0.2); Basophils % 1.4 % (0.1-2.0); Eosinophils # 0.2 K/mm3 (0.0-0.4); Eosinophils % 2.6 % (0.1-12.0); Hematocrit 36.1 % (37.0-47.0); Hemoglobin 11.7 g/dL (12.2-16.2); Lymphocytes # 1.9 K/mm3 (0.7-4.5); Lymphocytes % 32.1 % (10-50); Mean Corpuscular HGB Conc 32.4 g/dL (31.8-35.4); Mean Corpuscular Hemoglobin 29.6 pg (27.0-31.2); Mean Corpuscular Volume 91.4 fl (81-99); Mean Platelet Volume 10.7 fl (7.4-10.4); Monocytes # 0.4 K/mm3 (0.1-1.0); Monocytes % 6.3 % (1.7-9.3); Neutrophils # 3.4 K/mm3 (1.8-7.8); Neutrophils % 57.4 % (37.0-80.0); Platelet Count 242 K/mm3 (142-424); Red Blood Count 3.95 M/mm3 (4.20-5.40); Red Cell Distribution Width 12.9 % (11.5-17.5); White Blood Count 5.9 K/mm3 (4.8-10.8)
[2025-01-30 14:40] LABS: Albumin Level 4.7 g/dl (3.5-5.0); Chloride 105 mmol/L (98-107)
[2025-01-30 14:41] LABS: Potassium 4.2 mmoL/L (3.5-5.1); Sodium 135 mmol/L (136-145)
[2025-01-30 14:43] LABS: Alanine Aminotransferase 16 U/L (12-78); Anion Gap 10.2 mEq/L (5-15); Aspartate Amino Transferase 31 U/L (14-36); Bilirubin,Unconjugated 0.4 mg/dL (0.0-1.1); Blood Urea Nitrogen 16 mg/dl (7-17); Carbon Dioxide 24 mmol/L (22.0-30.0); Estimated Glomerular Filt Rate 60 ml/min (>60); GFR (African American) 73 ML/MIN (>60); Total Protein,Serum 7.7 g/dl (6.3-8.2)
[2025-01-30 14:44] LABS: Alkaline Phosphatase 77 U/L (38-126); Calcium 9.8 mg/dl (8.4-10.2); Chol/HDL Ratio 1.7 (1-3.5); Cholesterol 149 mg/dl (140-200); Glucose 83 mg/dl (74-100); HDL Cholesterol 87 mg/dl (40-60); Magnesium 1.9 mg/dl (1.6-2.3); Triglycerides 64 mg/dl (30-150); VLDL Cholesterol 13 mg/dL (0-40)
[2025-01-30 14:55] LABS: Direct LDL Cholesterol 35.18 mg/dL (100-129)
[2025-01-30 14:57] LABS: Bilirubin,Indirect 0.1 mg/dL (0.0-0.9); Bilirubin,Total 0.1 mg/dl (0.2-1.3)
[2025-01-30 15:02] LABS: Troponin I < 0.01 ng/ml (0.00-0.034)
[2025-01-30 16:13] LABS: Free T4 (Free Thyroxine) 1.52 ng/dl (0.78-2.19)
== END 2025-01-30 23:59 | disposition home or self-care (01) ==
LOC: LAB 13:55
PROVIDERS: PCP Internal Medicine Adolescent Medicine; Visit Provider Physician Assistant
DX: R07.9 Chest pain, unspecified (principal); R06.02 Shortness of breath; I25.10 Atherosclerotic heart disease of native coronary artery without angina pectoris; I10 Essential (primary) hypertension; F17.210 Nicotine dependence, cigarettes, uncomplicated; Z87.09 Personal history of other diseases of the respiratory system; E78.2 Mixed hyperlipidemia
CPT/HCPCS: 36415; 80048; 80061; 80076; 83735; 84439; 84443; 84484; 85025

== ENCOUNTER 2025-02-06 12:10 | Outpatient (CLI) | payer MEDICARE, SELFPAY ==
--- NOTE | 2025-02-06 | CA_ITS ---
APPROVED REPORT Exam: Pharmacologic Technologist: Heide Dia Ht: 5 ft 5 in Wt: 109 lbs BSA: 1.53 m2 HR: 63 bpm BP: 134/64 mmHg Stress Test Details Test: Lexiscan HR Resting HR: 63 bpm Max Heart Rate (APMHR): 141.360848 bpm Max HR Achieved: 100 bpm Target HR (85% APMHR): 119.594581 bpm % of APMHR: 70.92 Recovery HR: 76 bpm BP Resting BP: 134.0/64.0 mmHg Max BP: 134.0/64.0 mmHg Recovery BP: 129.0/64.0 mmHg ECG Resting ECG: Sinus arrhythmia Stress ECG Conclusion Symptoms: Headache, dyspnea Arrhythmias/Ectopy: Sinus arrhythmia ST-T Changes: Less than [address] depression. Conclusion: EKG unremarkable due to Lexiscan infusion. Electronically signed by : Birdie Kearney MD 02/08/2025 12:03:30
--- NOTE | 2025-02-06 12:30 | NM_ITS ---
APPROVED REPORT Exam: Nuclear Stress Test Indication: Chest pain, SOB, HTN, High cholesterol, Tobacco use, Family history, CAD Patient Location: Outpatient Stress Tech: Heide Dia AL Tech:Fiordaliza Zhou, ARRT, RT (R)(N) Ht: 5 ft 4 in Wt: 110 lbs Bra Size: 34B HR: 60 bpm BP: 134/64 mmHg BSA: 1.52 m2 TID: 1.03 BMI: 18.8 History: Chest pain, SOB, HTN, High cholesterol, Tobacco use, Family history, CAD Procedure: Patient received 0.4 mg of intravenous Lexiscan, resting heart rate 60 bpm, resting blood pressure 134/64 mmHg, with Lexiscan maximum heart rate achieved was 101 bpm which is % of the maximum predicted heart rate and blood pressure was 129/64 mmHg. With Lexiscan, patient denied any complaint of chest pain. Cardiac Stress and Resting SPECT Images: Cardiac Stress and Resting SPECT images were obtained using technetium 99m Myoview 30.6 mCi stress and 10.41 mCi at rest. Resting and stress imaging in supine and prone imaging demonstrate no evidence of fixed or reversible perfusion defects. Gated imaging demonstrates normal global and regional LV systolic function. LVEF is calculated at 64%. Conclusion: No evidence of fixed or reversible perfusion defects. Gated imaging demonstrates normal global and regional LV systolic function. LVEF is calculated at 64%. Electronically signed by : Birdie Kearney MD 02/08/2025 12:14:41
[2025-02-06] MEDS: ISOTOPE MYOVIEW (PER STUDY) 1 DOSE IV (13:59)
[2025-02-06] MEDS: REGADENOSON 0.4MG/5ML SYRINGE 0.4 MG IV (13:59)
[2025-02-06] MEDS: SODIUM CHLORIDE 0.9% 10ML SYR (RAD ONLY) 10 ML IV ×2 (13:59)
== END 2025-02-06 23:59 | disposition home or self-care (01) ==
PROVIDERS: PCP Internal Medicine Adolescent Medicine; Visit Provider Physician Assistant
DX: I25.10 Atherosclerotic heart disease of native coronary artery without angina pectoris (principal); R07.9 Chest pain, unspecified; R06.02 Shortness of breath
CPT/HCPCS: 78452; 93017; 93018; A9502; J2785

== ENCOUNTER 2025-02-08 13:15 | Outpatient (POV) | payer MEDICARE, SELFPAY ==
--- NOTE | 2025-02-08 13:29 | EXP.PAIN.SOA ---
[facility] Disclaimer: The information contained in this section may have been updated after the patient was seen, as this information can be updated by other users. Medical History (Updated 01/30/25 @ 13:43 by Hamlet Wright RN) Chest pain Lung nodule Smoking greater than 30 pack years Dyspnea on exertion Screening for lung cancer History of COPD Stopped smoking with greater than 30 pack year history Shortness of breath Pneumonia History of COVID-19 History of gastroesophageal reflux (GERD) History of chest pain Small intestine obstruction SOB (shortness of breath) on exertion Fatigue KM (obstructive sleep apnea) COPD (chronic obstructive pulmonary disease) Surgical History History of arthroscopy of shoulder History of hysterectomy History of colonoscopy History of colon resection Family History Other Coronary artery disease Family history of GERD Family history of cancer Family history of diabetes mellitus type II Family history of hyperlipidemia Family history of hypertension Family history of myocardial infarction Social History Smoking Status: Current every day smoker tobacco type: cigarettes packs per day: 1 second hand exposure: No alcohol intake: never counseling provided: none substance use type: denies use current occupational status: other Travel in the last 8 weeks: None household members: none housing: house current occupational exposures/hazards: No caffeine: Yes PM Subjective & Objective Subjective Subjective:: Patient is a pleasant 79-year-old female who presents today for medication refill and follow-up. Today she rates her pain a 4 out of 10. She denies any new falls or injuries. She does state that she feels like her mid back does seem to be improving as time goes on. Patient does state that the medications we have prescribed do seem to be helping. She is currently managed with methocarbamol 500 mg twice a day, Tylenol 3 daily and was recently sent in a prescription of raloxifene 60 mg daily for her osteoporosis. She denies any side effects from that medication. Patient does state that she did get a call from the pharmacy regarding Prolia injections from Dr. Martinez's office however the co-pay was $1000. Patient states that she cannot afford this. Her Rich has been reviewed and is appropriate. Review of Systems: General: No recent weight changes, no fever, no sleep disturbances Respiratory: No cough, no shortness of air, no recurring pulmonary infections Cardiovascular/peripheral vascular: No chest pain, no palpitations, no edema, no shortness of breath Gastrointestinal: No new onset incontinence, normal bowel movements reported Genitourinary: No new onset incontinence Musculoskeletal: Mid to low back pain Psychiatric: [Normal mood/affect] Neurological: [Denies weakness in extremities], [denies balance issues] Pain at rest (0-10 scale): 4 Objective Objective:: Physical Exam: General: Alert and oriented x3, no acute distress, pleasant and cooperative Lungs: Respirations even and unlabored, symmetrical chest expansion Eyes: PERRL Musculoskeletal: Flexion and extension of lumbar [spine] somewhat guarded secondary to pain, [antalgic gait noted] Neurological: Speech clear, no gross sensory deficit Has patient had previous pain injection?: No Conservative treatment options previously tried: Home exercise plan Length of treatment: Longer than 12 weeks Meds Home Medications and Allergies Home Medications ?Medication ?Instructions ?Recorded ?Confirmed ?Type vitamin D3 25 mcg (1,000 unit)-vit 1 tab PO DAILY Supplement 10/02/19 01/30/25 History K2 90 mcg disintegrating tablet fluticasone propionate 50 1 spray intranasal DAILY allergies 10/22/21 01/30/25 History mcg/actuation nasal spray,suspension aspirin 81 mg tablet,delayed 81 mg PO DAILY heart health 01/30/22 01/30/25 History release ipratropium 20 mcg-albuterol 100 1 puff inhalation QIDRT SHORTNESS 02/15/22 01/30/25 History mcg/actuation mist for inhalation OF AIR spironolactone 25 mg tablet 25 mg PO BID Edema 02/15/22 01/30/25 History pantoprazole 40 mg tablet,delayed 40 mg PO DAILY GERD 10/23/22 01/30/25 History release nitroglycerin 0.4 mg sublingual 0.4 mg sublingual Q5M PRN chest 10/19/23 01/30/25 Rx tablet pain #20 tabs fluticasone fur. 100 mcg-umeclid 1 inh inhalation DIRECTED 11/25/23 01/30/25 History 62.5 mcg-vilant 25 mcg inhalat.powder (Trelegy Ellipta) metoprolol succinate 50 mg 50 mg PO DAILY #30 tabs 11/25/23 01/30/25 Rx tablet,extended release 24 hr furosemide 40 mg tablet See Rx Instructions .Route 03/16/24 01/30/25 Rx .COMPLEX #90 tabs methocarbamol 500 mg tablet 500 mg PO BID #60 tabs 01/12/25 01/30/25 Rx rosuvastatin 20 mg tablet See Rx Instructions .Route 01/22/25 01/30/25 Rx .COMPLEX #90 tabs raloxifene 60 mg tablet 60 mg PO DAILY 01/30/25 01/30/25 History New Prescriptions to Start Prescriptions: Allergies Allergy/AdvReac Type Severity Reaction Status Date / Time atorvastatin AdvReac Mild myalgias Verified 01/30/25 13:25 Assessment and Plan *Assessment and plan (1) Compression fracture: Status: Acute Category: Medical (2) Lumbar facet arthropathy: Status: Acute Category: Medical Code(s): M47.816 - Spondylosis without myelopathy or radiculopathy, lumbar region (3) Degenerative disc disease, lumbar: Status: Acute Category: Medical Code(s): M51.369 - Other intervertebral disc degeneration, lumbar region without mention of lumbar back pain or lower extremity pain Plan Patient is doing well with her current medication regimen. I did discuss with the patient regarding the Prolia injections that if she does end up getting assistance through a program related to those injections that I would recommend those over the oral medications I have prescribed. She was counseled that obviously my biggest concern would be not to double up on this medication but we are happy to continue this regimen until she does have additional options. I will send in a 1 month supply of all the methocarbamol Tylenol 3 and raloxiene. Patient will return to clinic in 1 month. Risks and benefits of the medication have been explained in detail to the patient. The patient does understand the risk of dependence on the medication when given over a prolonged period. Patient has been advised of risks of oversedation with the prescribed medication. Narcan has been offered to the paitent in the event of oversedation. Patient has been advised that a family member should also be educated regarding administration of Narcan. The patient has been advised to consult with his/her primary care provider and pharmacist regarding drug-drug interaction of medications currently prescribed. Patient has been prescribed a controlled substance after being counseled on the medication, medication safety, and possible side effects. Opioid contract was reviewed and signed by the patient, and that they have agreed to all of the terms set forth by our compliance program. A UDS is needed to verify patient's compliance with our office pain contract. This is ordered based off specific treatments related to chronic pain with the potential to abuse certain medications. Patient has been instructed to contact the clinic with any concerns before the next appointment. Dr. Poole has reviewed this note and agrees with this plan of care. This note was dictated using voice recognition software and make contain errors or omissions.
[2025-02-08 13:32] VITALS: BP 123/60; PULSE 67; RESP 14; O2SAT 96; BMI 18.8
== END 2025-02-08 23:59 | disposition home or self-care (01) ==
PROVIDERS: PCP Internal Medicine Adolescent Medicine; Visit Provider Nurse Practitioner Family
DX: M47.816 Spondylosis without myelopathy or radiculopathy, lumbar region (principal); M51.369 Other intervertebral disc degeneration, lumbar region without mention of lumbar back pain or lower extremity pain; F17.210 Nicotine dependence, cigarettes, uncomplicated
CPT/HCPCS: 99212; G0463

== ENCOUNTER 2025-02-19 12:10 | Outpatient (CLI) | payer MEDICARE, SELFPAY ==
[2025-02-19] MEDS: DENOSUMAB 60 MG/ML SYRINGE SUBCUT (12:31)
[2025-02-19 12:35] VITALS: BP 124/77; PULSE 83; RESP 19; TEMP 36.6; O2SAT 93
== END 2025-02-19 12:35 | disposition home or self-care (01) ==
LOC: INF 12:11
PROVIDERS: PCP Internal Medicine Adolescent Medicine; Visit Provider Internal Medicine Adolescent Medicine
DX: M81.0 Age-related osteoporosis without current pathological fracture (principal)
CPT/HCPCS: 96372; J0897

== ENCOUNTER 2025-02-25 20:03 | Emergency (ER) | payer MEDICARE, SELFPAY ==
[2025-02-25 20:11] VITALS: BP 134/93; PULSE 74; RESP 18; TEMP 36.6; O2SAT 98; BMI 19.5
--- NOTE | 2025-02-25 20:11 | XR_ITS ---
PROCEDURE INFORMATION: Exam: XR Right Ankle Exam date and time: 02/25/2025 8:27 PM Age: 80 years old Clinical indication: Injury or trauma; Fall; Blunt trauma; Ankle; Right; Additional info: Fall, lateral mal pain TECHNIQUE: Imaging protocol: Radiologic exam of the right ankle. Views: 3 or more views. COMPARISON: No relevant prior studies available. FINDINGS: Bones/joints: No acute fracture. Normal alignment. Diffuse osteopenia. Soft tissues: Unremarkable. IMPRESSION: No acute findings.
--- NOTE | 2025-02-25 20:11 | XR_ITS ---
PROCEDURE INFORMATION: Exam: XR Left Knee Exam date and time: 02/25/2025 8:27 PM Age: 80 years old Clinical indication: Injury or trauma; Fall; Blunt trauma; Knee; Left; Additional info: Fall, medial joint space pain TECHNIQUE: Imaging protocol: Radiologic exam of the left knee. Views: 3 views. COMPARISON: CR XR ANKLE LT MIN 3V 07/10/2019 9:25 AM FINDINGS: Bones/joints: No acute fracture. Normal alignment. Osteopenia. Small suprapatellar effusion. Soft tissues: Unremarkable. IMPRESSION: 1. No acute radiographic osseous findings. 2. Suprapatellar effusion.
--- OUTSIDE RECORDS SUMMARY | 2025-02-25 20:11 | XMS_ITS | Data Portability ---
Author Organization [facility] Address [address] [place] [address] Assessment Encounter Date Assessment Date Assessment LastModified by Organization Details LastModified Time 01/07/2023 01/07/2023 This patient did well with her kyphoplasty bilaterally of L1 and T11. Upon discharge she was completely pain-free. She is neurologically intact. We discharged her home and she was doing well. We will follow-up with her in our [place] office in 2 weeks. abux Not available 01/07/2023 17:12:01 Plan of Treatment Reminders Order Date Submit Date Provider Last Modified By Organization Details Last Modified Time Details Appointments None record ed. Lab None record ed. Referral None record ed. Procedures None record ed. Surgeries None record ed. Imaging None record ed. Medication Orders None record ed. Patient TargetsNo targets recorded. Patient InstructionsNo instructions recorded. Reason for Referral None Reported. Procedures Surgical History Date Name Laterality Status Provider Name and Address Organization Details Recorded Time 3 Kyphoplasty completed Beto Poole MD [address], [address], [facility] 01/07/2023 17:08:22 Imaging Results None recorded. Procedure Notes None recorded. Medical Equipment None Reported. Medications Name Sig Start Date Stop Date Status Note LastModified by Organization Details LastModified Time furosemide 40 mg tablet TAKE 1 TABLET BY MOUTH TWICE A DAY active Not Available Not Available No t Available methocarbamo l 500 mg tablet TAKE 1 TO 2 TABLETS BY MOUTH AT NIGHT FOR MUSCLE SPASM active Not Available Not Available No t Available clonidine HCl 0.1 mg tablet TAKE ONE TABLET BY MOUTH TWICE DAILY active Not Available Not Available No t Available cefuroxime axetil 250 mg tablet TAKE 1 TABLET BY MOUTH EVERY 12 HOURS FOR 10 DAYS active Not Available Not Available Not Available ipratropium 0.5 mg-albuterol 3 mg (2.5 mg base)/3 mL nebulization soln INHALE 1 VIAL VIA NEBULIZER 4 TIMES A DAY NEEDED active Not Available Not Available No t Available clindamycin HCl 300 mg capsule TAKE 1 CAPSULE BY MOUTH 3 TIMES A DAY FOR 10 DAYS active Not Available Not Available Not Available tizanidine 4 mg tablet TAKE 1 TABLET BY MOUTH TWICE DAILY active Not Available Not Available No t Available hydrocodone 5 mg-acetamino phen 325 mg tablet TAKE 1 TABLET BY MOUTH TWICE DAILY active Not Available Not Available No t Available prednisone 20 mg tablet TAKE 1 TABLET BY MOUTH TWICE DAILY active Not Available Not Available No t Available acetaminophe n 300 mg-codeine 30 mg tablet TAKE 1 TABLET BY MOUTH EVERY 6 HOURS FOR 10 DAYS active Not Available Not Available No t Available tramadol 50 mg tablet TAKE 1/2 TO 1 (ONE-HALF TO ONE) TABLET BY MOUTH EVERY 6 HOURS NEEDED active Not Available Not Available No t Available spironolacto ne 25 mg tablet TAKE 1 TABLET BY MOUTH TWICE A DAY active Not Available Not Available No t Available metocloprami de 5 mg tablet TAKE ONE TABLET BY MOUTH BEFORE MEALS AND AT BEDTIME active Not Available Not Available N ot Available pantoprazole 40 mg tablet,delay ed release TAKE 1 TABLET BY MOUTH EVERY DAY FOR 30 DAYS active Not Available Not Available No t Available simvastatin 20 mg tablet TAKE 1 TABLET BY MOUTH EVERY DAY FOR CHOLESTEROL active Not Available Not Available Not Available triamcinolon e acetonide 0.1 % topical ointment APPLY 1 APPLICATION TOPICALLY 3 TIMES A DAY FOR 7 DAYS active Not Available Not Available N ot Available metoprolol succinate ER 25 mg tablet,exten ded release 24 hr TAKE 1 TABLET BY MOUTH EVERY DAY active Not Available Not Available No t Available cefdinir 300 mg capsule TAKE 1 CAPSULE BY MOUTH TWICE A DAY FOR 10 DAYS active Not Available Not Available No t Available rosuvastatin 20 mg tablet TAKE 1 TABLET BY MOUTH ONCE DAILY active Not Available Not Available No t Available Combivent Respimat 20 mcg-100 mcg/actuatio n solution for inhalation INHALE 1 PUFF BY MOUTH 4 TIMES A DAY active Not Available Not Available Not Available Vitals Date Recorded Pain severity - 0-10 verbal numeric rating [Score] - Reported Body height Body mass index (BMI) Body weight Heart rate Oxygen saturation Oxygen saturation in Arterial blood by Pulse oximetry Systolic blood pressure Diastolic blood pressure Provider Name and Address Organization Details Last Updated DateTime 3 8 165.1 cm 18.3 kg/m2 49466.1 6 g 74 /min 96 % 96 % 147 mm[Hg] 84 mm[Hg] Tesha fontana [place] [facility] 3 13:02:25 Social History None recorded. Functional Status None recorded. Mental Status None recorded. Family History Nothing Reported. Medical History No medical history recorded. Gynecological HistoryNo gynecological history recorded. Obstetrics History GPAL:G 0 P 0 0 0 0 Past Encounters Encounter ID Performer Location Encounter Start Date Encounter Closed Date Diagnosis/Indication Diagnosis SNOMED-CT Code Diagnosis ICD10 Code Diagnosis Note [id number] Beto Poole MD [facility] [address] [place] [id number] 01/07/2023 12:54:26 01/07/2023 15:34:39 Osteoporotic fracture of vertebra 1615151047 [id number] M80.08XA Health Concerns Section Related Observation LastModified by Organization Detai ls LastModified Time None Recorded Concern Status LastModified by Organization Details LastModified Time None Recorded Advance Directives Directive None Recorded Payers Encounter Date Sequence Insurance Name Policy Number Policy Hubbard Covered Member ID Hubbard Member ID Guarantor Name 01/07/2023 1 [place] Nadira L Sowder [id number] Nadira L Sowder 01/07/2023 2 [place]PP[place] [id number] Nadira L Sowder [id number] Nadira L Sowder OBGyn Episode No OBEpisode recorded.
--- OUTSIDE RECORDS SUMMARY | 2025-02-25 20:12 | XMS_ITS ---
Care Plan - [facility], [facility] Created on: February 25, 2025 LyndseymercedezNadira : 1945 Sex: Female Author Organization [facility] Address [address] [place] [address] Phone Care Team Providers Care Freight And Passenger Agent Name Role Phone Isabella PAYAN, [facility] Unavailable [phone]
--- OUTSIDE RECORDS SUMMARY | 2025-02-25 20:12 | XMS_ITS ---
Author Organization [facility] Address [address] [place] [address] Phone Care Team Providers Care Inspector And Hand Packager Name Role Phone Isabella PAYAN, [facility] [phone] Plan of Treatment No Plan of Treatment Recorded Assessments Includes: Assessments for all patient encounters No Assessments Recorded Medical Equipment - Implanted Devices Includes: Current and historical Devices No Medical Equipment Recorded Medications Administered Includes: Administered Medications in patient's chart No Administered Medications Recorded Results Includes: Results from 02/26/2024 through 02/25/2025 No Results Recorded For Specified Dates History [...] basilio Dates 1 - Medicare Part B [facility] [id number] Nadira Almanza Alicja Self Clinical Notes Includes: Signed Clinical Notes starting from 10/29/2022 No Clinical Notes Recorded
[2025-02-25] MEDS: ACETAMINOPHEN 500MG TAB 1000 MG PO (20:15)
[2025-02-25] MEDS: IBUPROFEN 600 MG TABLET PO (20:15)
--- NOTE | 2025-02-25 20:19 | HMH.EDGENADL ---
Discharge Plan Disposition Patient Disposition: Home, Self-Care Prescriptions Prescriptions: No Action nitroglycerin 0.4 mg tablet, sublingual 0.4 mg sublingual Q5M PRN (Reason: chest pain) Qty: 20 0RF Rx Instructions: do not exceed 3 doses per episode fluticasone propionate 50 mcg/actuation spray,suspension 1 spray NS DAILY Trelegy Ellipta 100-62.5-25 mcg blister with device 1 inh inhalation DIRECTED metoprolol succinate 50 mg tablet extended release 24 hr 50 mg PO DAILY Qty: 30 3RF furosemide 40 mg tablet See Rx Instructions .ROUTE .COMPLEX Qty: 90 3RF Dose Instruction: TAKE 1 TABLET BY MOUTH ON WEDNESDAY, WEDNESDAY AND WEDNESDAY DIRECTED NEEDED FOR SHORTNESS OF BREATH Rx Instructions: TAKE 1 TABLET BY MOUTH ON WEDNESDAY, WEDNESDAY AND WEDNESDAY DIRECTED NEEDED FOR SHORTNESS OF BREATH rosuvastatin 20 mg tablet See Rx Instructions .ROUTE .COMPLEX Qty: 90 1RF Dose Instruction: Take 1 tablet by mouth once daily Rx Instructions: Take 1 tablet by mouth once daily vitamin D3-vitamin K2 1 EACH tablet,disintegrating 1 tab PO DAILY aspirin 81 MG tablet,delayed release (DR/EC) 81 mg PO DAILY spironolactone 25 MG tablet 25 mg PO BID ipratropium-albuterol 120 PUFF mist 1 puff IH QIDRT pantoprazole 40 mg tablet,delayed release (DR/EC) 40 mg PO DAILY Patient Comments: TAKE 1 TABLET BY MOUTH EVERY DAY FOR 30 DAYS acetaminophen-codeine 300-30 mg tablet 1 tab PO DAILY Qty: 30 0RF methocarbamol 500 mg tablet 500 mg PO BID Qty: 60 0RF raloxifene 60 mg tablet 60 mg PO DAILY Qty: 30 0RF Referrals Follow up/Referrals: Wally Martinez MD [Primary Care Provider] - See instructions Activity Restrictions/Add. Instructions Additional Instructions/Restrictions: Follow-up with your family doctor as needed for this visit to the emergency department. Take Tylenol 1000 mg every 6 hours (4 times daily) and ibuprofen 400 mg every 6 hours (4 times daily) as needed with food and water to prevent GI upset and kidney damage. Clinical Impressions Clinical Impression: Acute pain of left knee, Acute right ankle pain Print Language Print Language: Icelandic Discharge ED Provider: Ganesh Lewis General Adult HPI General Chief complaint: Fall Stated complaint: AO 02/25/25 1900 injury left knee,right ankle Time Seen by Provider: 02/25/25 20:06 Mode of Arrival: Wheelchair Source of Information: Patient Description of Symptoms (Recalled from ER Triage Doc. by RN): Pt to ED with c/o fall one hour ago. pt reports she was getting up off of the couch and her left foot was turned to the right which caused her to fall. Pt landed on right side. denies hitting head, LOC, prolonged down-time, blood thinners. Pt is c/o left knee and right ankle pain. History of Present Illness HPI narrative: Please note that above description of symptoms, in this electronic medical record under categorization of recalled from ER triage doctor by RN are reflective of an initial nursing assessment, however, is not reflective of my full history and physical exam that was personally taken and clarified. Consequentially, this preceding description of symptoms, which may include the patient's categorized chief complaint in the EMR, do not reflect my personal clinical impression, and the ultimate description of history of present illness and patient stated complaints should be deferred to this section of the note. Unless stated otherwise or congruent with this section of the note, additional signs, symptoms, or incongruence should be interpreted as inaccurate with my clinical impression. Related Data Home Medications ?Medication ?Instructions ?Recorded ?Confirmed vitamin D3 25 mcg (1,000 unit)-vit 1 tab PO DAILY Supplement 10/02/19 02/20/25 K2 90 mcg disintegrating tablet fluticasone propionate 50 1 spray intranasal DAILY allergies 10/22/21 02/20/25 mcg/actuation nasal spray,suspension aspirin 81 mg tablet,delayed 81 mg PO DAILY heart health 01/30/22 02/20/25 release ipratropium 20 mcg-albuterol 100 1 puff inhalation QIDRT SHORTNESS 02/15/22 02/20/25 mcg/actuation mist for inhalation OF AIR spironolactone 25 mg tablet 25 mg PO BID Edema 02/15/22 02/20/25 pantoprazole 40 mg tablet,delayed 40 mg PO DAILY GERD 10/23/22 02/20/25 release fluticasone fur. 100 mcg-umeclid 1 inh inhalation DIRECTED 11/25/23 02/20/25 62.5 mcg-vilant 25 mcg inhalat.powder (Trelegy Ellipta) Previous Rx's ?Medication ?Instructions ?Recorded nitroglycerin 0.4 mg sublingual 0.4 mg sublingual Q5M PRN chest 10/19/23 tablet pain #20 tabs metoprolol succinate 50 mg 50 mg PO DAILY #30 tabs 11/25/23 tablet,extended release 24 hr furosemide 40 mg tablet See Rx Instructions .Route 03/16/24 .COMPLEX #90 tabs rosuvastatin 20 mg tablet See Rx Instructions .Route 01/22/25 .COMPLEX #90 tabs acetaminophen 300 mg-codeine 30 mg 1 tab PO DAILY #30 tabs 02/08/25 tablet methocarbamol 500 mg tablet 500 mg PO BID #60 tabs 02/08/25 raloxifene 60 mg tablet 60 mg PO DAILY #30 tabs 02/08/25 Allergies Allergy/AdvReac Type Severity Reaction Status Date / Time atorvastatin AdvReac Mild myalgias Verified 02/20/25 13:11 [facility] Disclaimer: The information contained in this section may have been updated after the patient was seen, as this information can be updated by other users. Medical History (Updated 02/25/25 @ 20:50 by Ganesh Lewis MD) Epigastric pain Bloating Chest pain Lung nodule Smoking greater than 30 pack years Dyspnea on exertion Screening for lung cancer History of COPD Stopped smoking with greater than 30 pack year history Shortness of breath Pneumonia History of COVID-19 History of gastroesophageal reflux (GERD) History of chest pain Small intestine obstruction SOB (shortness of breath) on exertion Fatigue KM (obstructive sleep apnea) COPD (chronic obstructive pulmonary disease) Surgical History History of arthroscopy of shoulder History of hysterectomy History of colonoscopy History of colon resection Family History Other Coronary artery disease Family history of GERD Family history of cancer Family history of diabetes mellitus type II Family history of hyperlipidemia Family history of hypertension Family history of myocardial infarction Social History Smoking Status: Current every day smoker tobacco type: cigarettes packs per day: 1 second hand exposure: No alcohol intake: never counseling provided: none substance use type: denies use current occupational status: other Travel in the last 8 weeks: None household members: none housing: house current occupational exposures/hazards: No caffeine: Yes Have you lived/traveled outside US in past 30 days?: No Contact w/someone who lives/traveled outside US past 30 days?: No Exposure to someone with infectious disease in past 14 days?: No Do you have a fever (greater than 100.4 F or 38 C)?: No Have you tested positive for COVID-19: No Exposed to someone with COVID-19 in past 14 days?: No Do you have a sore throat?: No Do you have a cough?: No Do you have any weakness?: No Do you have any diarrhea?: No Are you experiencing any unusual bleeding?: No Do you have any muscle aches/pain?: No Do you have any abdominal pain?: No Are you experiencing loss of taste or smell?: No Other Medical History Have you received the Flu Vaccine for this season: Yes Have you received the Pneumonia Vaccine: Yes ROS Obtained: Yes All systems reviewed & no additional complaints except as documented Physical Exam General General appearance: alert Head Head exam: atraumatic and normocephalic Eye Eye exam: Present normal appearance, PERRL and EOMI Neck Neck exam: Present normal inspection, full ROM and trachea midline Respiratory Respiratory exam: Absent respiratory distress, wheezes, stridor, accessory muscle use or prolonged expiratory phase Cardiovascular Cardiovascular exam: Present other (Pulses equal symmetric in upper and lower extremities) Abdominal Exam Abdominal exam: Present soft; Absent distention, tenderness or pulsatile mass Extremities Exam Extremities exam: Absent edema Neurological Exam Neurological exam: Present alert, oriented X3 and CN II-XII intact; Absent motor sensory deficit Skin Skin exam: Present warm and dry; Absent diaphoresis or erythema Medical Decision Making Medical Records Medical records reviewed: Yes I reviewed the patient's medical records. Screening: Per USPSTF and CDC recommendations, given the prevalence of disease in our region, it is our hospital?s policy to screen for HIV and viral Hepatitis for all patients aged 18 and over and those with ongoing risk factors. Rich Inquiry Pt receiving controlled substance: No Rich was queried for this patient: No Vital Signs: 02/25/25 20:11 02/25/25 20:58 Temperature 97.8 F 97.9 F Temperature Source Oral Oral Pulse Rate 84 Pulse Rate [Left Radial] 74 Respiratory Rate 18 17 Blood Pressure 134/93 H Blood Pressure [Right Arm] 134/93 H Blood Pressure Mean [Right Arm] 106 Blood Pressure Source Automatic Cuff Blood Pressure Source [Right Arm] Automatic Cuff Blood Pressure Position Supine Blood Pressure Position [Right Arm] Sitting 02 Sat by Pulse Oximetry 98 Oxygen Delivery Method Room Air Room Air Orders (Tests/Meds): ED MEDICATIONS Discontinued Medications Generic Name Dose Route Start Last Admin Trade Name Hadley PRN Reason Stop Dose Admin Acetaminophen 1,000 mg 02/25/25 20:11 02/25/25 20:15 Acetaminophen 500mg Tab PO 02/25/25 20:12 1,000 mg ONCE ONE Administration Ibuprofen 600 mg 02/25/25 20:11 02/25/25 20:15 Ibuprofen 600 Mg Tablet PO 02/25/25 20:12 600 mg ONCE ONE Administration ORDERS Category Date Time Status Ankle XR -Right minimum 3 Views [XR ankle RT min 3V] Exams 02/25/25 20:11 Completed Stat Knee XR left 3 views [XR knee LT 3V] Stat Exams 02/25/25 20:11 Completed Medical Decision Narrative: 80-year-old female no relevant medical history presenting with bilateral leg pain. She states that she stood up off the couch just prior to arrival, fell to the right and now is having pain in the medial aspect of her left knee and lateral aspect of her right ankle. Able to ambulate, but states that she does have pain with it. Patient's family brought her in for further evaluation. History was obtained via conversation with patient and family. On arrival, patient hemodynamically stable, alert, oriented x4, appropriate, GCS 15, moving all extremities spontaneously, pupils equal and reactive to light. Full physical exam performed and significant for well-appearing female no acute distress. She does have tenderness with no outward signs of abnormality medial aspect of the left knee. Range of motion intact, neurologically intact and vascularly intact with good capillary refill. Right lower extremity, patient has tenderness about the lateral malleolus, but no outward signs of injury, deformity, edema, or other abnormality. Differential includes sprain, strain, fracture, dislocation, among others. Patient given Tylenol and Motrin. X-rays were ordered, on independent interpretation, no acute bony abnormality. Because patient at baseline without signs or symptoms of clinical decompensation, deemed appropriate for discharge. Results were relayed to patient who voiced understanding and were agreeable to outpatient management and follow up. I discussed my clinical impression with patient and answered all questions. At this time, the evidence for any other entities in the differential is insufficient to warrant any further testing or ED observation. This was explained as well. Advisory was given that persistent or worsening symptoms require further evaluation. I confirmed the understanding of this discussion. Portrait Painter disclaimer Much of this encounter note is an electronic director integrated spoken language to printed text. Electronic director integrated of the spoken language may permit errors. Although I have reviewed the note, some errors may still exist. Critical Care Critical Care Time Critical Care Time: No
[2025-02-25 20:58] VITALS: BP 134/93; PULSE 84; RESP 17; TEMP 36.6; O2SAT 97
== END 2025-02-25 20:59 | disposition home or self-care (01) ==
PROVIDERS: Emergency Provider Emergency Medicine; PCP Internal Medicine Adolescent Medicine
DX: M25.562 Pain in left knee (principal); M25.571 Pain in right ankle and joints of right foot; W19.XXXA Unspecified fall, initial encounter
CPT/HCPCS: 99283; 73562; 73610

== ENCOUNTER 2025-03-09 14:54 | Outpatient (POV) | payer MEDICARE, SELFPAY ==
--- OUTSIDE RECORDS SUMMARY | 2025-03-09 14:55 | XMS_ITS | Data Portability ---
Author Organization [facility] Address [address] [place] [address] Assessment Encounter Date Assessment Date Assessment LastModified by Organization Details LastModified Time 01/07/2023 01/07/2023 This patient did well with her kyphoplasty bilaterally of L1 and T11. Upon discharge she was completely pain-free. She is neurologically intact. We discharged her home and she was doing well. We will follow-up with her in our [place] office in 2 weeks. abux Not available [...] Kyphoplasty completed Beto Poole MD [address], [address], [facility] 01/07/2023 17:08:22 [...] DateTime 3 8 165.1 cm 18.3 kg/m2 46937.1 6 g 74 /min 96 % 96 [...] SNOMED-CT Code Diagnosis ICD10 Code Diagnosis Note [id number] Beto Poole MD [place] [facility] [address] [place] [id number] 01/07/2023 12:54:26 01/07/2023 15:34:39 Osteoporotic fracture of vertebra [id number] M80.08XA Health Concerns Section Related Observation LastModified by Organization Detai ls LastModified Time None Recorded Concern Status LastModified by Organization Details LastModified Time None Recorded Advance Directives Directive None Recorded Payers Encounter Date Sequence Insurance Name Policy Number Policy Hubbard Covered Member ID Hubbard Member ID Guarantor Name 01/07/2023 1 [place] Nadira L Sowder [id number] Nadira L Sowder 01/07/2023 2 [place] [id number] Nadira L Sowder [id number] Nadira L Sowder OBGyn Episode No OBEpisode recorded.
--- OUTSIDE RECORDS SUMMARY | 2025-03-09 14:55 | XMS_ITS ---
Author Organization [facility] Address [address] [place] [address] Phone Care Team Providers Care Web Worker Name Role Phone Isabella PAYAN, [facility] [phone] Plan of Treatment No Plan of Treatment Recorded Assessments Includes: Assessments for all patient encounters No Assessments Recorded Medical Equipment - Implanted Devices Includes: Current and historical Devices No Medical Equipment Recorded Medications Administered Includes: Administered Medications in patient's chart No Administered Medications Recorded Results Includes: Results from 03/09/2024 through 03/09/2025 No Results Recorded For Specified Dates History [...] basilio Dates 1 - Medicare Part B [facility] [id number] Nadira Almanza Alicja Self Clinical Notes Includes: Signed Clinical Notes starting from 10/29/2022 No Clinical Notes Recorded
--- OUTSIDE RECORDS SUMMARY | 2025-03-09 14:55 | XMS_ITS ---
Care Plan - [facility], [facility] Created on: March 09, 2025 LyndseymercedezNadira : 1945 Sex: Female Author Organization [facility] Address [address] [place] [address] Phone Care Team Providers Care Apparatus Engineering Technologist Name Role Phone Isabella PAYAN, [facility] Unavailable [phone]
[2025-03-09 15:09] VITALS: BP 118/62; PULSE 80; RESP 14; O2SAT 99; BMI 19.5
--- NOTE | 2025-03-09 15:33 | EXP.PAIN.SOA ---
[facility] Disclaimer: The information contained in this section may have been updated after the patient was seen, as this information can be updated by other users. Medical History Epigastric pain Bloating Chest pain Lung nodule Smoking greater than 30 pack years Dyspnea on exertion Screening for lung cancer History of COPD Stopped smoking with greater than 30 pack year history Shortness of breath Pneumonia History of COVID-19 History of gastroesophageal reflux (GERD) History of chest pain Small intestine obstruction SOB (shortness of breath) on exertion Fatigue KM (obstructive sleep apnea) COPD (chronic obstructive pulmonary disease) Surgical History History of arthroscopy of shoulder History of hysterectomy History of colonoscopy History of colon resection Family History Other Coronary artery disease Family history of GERD Family history of cancer Family history of diabetes mellitus type II Family history of hyperlipidemia Family history of hypertension Family history of myocardial infarction Social History Smoking Status: Current every day smoker tobacco type: cigarettes packs per day: 1 second hand exposure: No alcohol intake: never counseling provided: none substance use type: denies use current occupational status: other Travel in the last 8 weeks: None household members: none housing: house current occupational exposures/hazards: No caffeine: Yes PM Subjective & Objective Subjective Subjective:: Patient is a pleasant 80-year-old female who presents today for 1 month follow-up. Today she rates her pain a 0 out of 10 overall in her back. She does state a couple weeks ago she did end up falling hitting her left knee. She states that they did end up doing some x-ray imaging and denied any fractures however were stating that she had sprained it. She does state that this is getting better though and she is using a cane to help with ambulation today. Patient has been managed with methocarbamol 500 mg twice a day, Tylenol 3 daily and has recently been given a oral prescription for osteoporosis. She does state however from her last visit they did end up starting the Prolia injections. Patient denies any other changes. She does state overall that she does not need any refills at this time. Her Rich has been reviewed and is appropriate. Review of Systems: General: No recent weight changes, no fever, no sleep disturbances Respiratory: No cough, no shortness of air, no recurring pulmonary infections Cardiovascular/peripheral vascular: No chest pain, no palpitations, no edema, no shortness of breath Gastrointestinal: No new onset incontinence, normal bowel movements reported Genitourinary: No new onset incontinence Musculoskeletal: Left knee pain Psychiatric: [Normal mood/affect] Neurological: [Denies weakness in extremities], [denies balance issues] Pain at rest (0-10 scale): 0 Objective Objective:: Physical Exam: General: Alert and oriented x3, no acute distress, pleasant and cooperative Lungs: Respirations even and unlabored, symmetrical chest expansion Eyes: PERRL Musculoskeletal: Flexion and extension of left knee somewhat guarded secondary to pain, [antalgic gait noted] Neurological: Speech clear, no gross sensory deficit Has patient had previous pain injection?: No Conservative treatment options previously tried: Home exercise plan Length of treatment: Longer than 12 weeks Meds Home Medications and Allergies Home Medications ?Medication ?Instructions ?Recorded ?Confirmed ?Type vitamin D3 25 mcg (1,000 unit)-vit 1 tab PO DAILY Supplement 10/02/19 03/09/25 History K2 90 mcg disintegrating tablet fluticasone propionate 50 1 spray intranasal DAILY allergies 10/22/21 03/09/25 History mcg/actuation nasal spray,suspension aspirin 81 mg tablet,delayed 81 mg PO DAILY heart health 01/30/22 03/09/25 History release ipratropium 20 mcg-albuterol 100 1 puff inhalation QIDRT SHORTNESS 02/15/22 03/09/25 History mcg/actuation mist for inhalation OF AIR spironolactone 25 mg tablet 25 mg PO BID Edema 02/15/22 03/09/25 History pantoprazole 40 mg tablet,delayed 40 mg PO DAILY GERD 10/23/22 03/09/25 History release nitroglycerin 0.4 mg sublingual 0.4 mg sublingual Q5M PRN chest 10/19/23 03/09/25 Rx tablet pain #20 tabs fluticasone fur. 100 mcg-umeclid 1 inh inhalation DIRECTED 11/25/23 03/09/25 History 62.5 mcg-vilant 25 mcg inhalat.powder (Trelegy Ellipta) metoprolol succinate 50 mg 50 mg PO DAILY #30 tabs 11/25/23 03/09/25 Rx tablet,extended release 24 hr furosemide 40 mg tablet See Rx Instructions .Route 03/16/24 03/09/25 Rx .COMPLEX #90 tabs rosuvastatin 20 mg tablet See Rx Instructions .Route 01/22/25 03/09/25 Rx .COMPLEX #90 tabs acetaminophen 300 mg-codeine 30 mg 1 tab PO DAILY #30 tabs 02/08/25 03/09/25 Rx tablet methocarbamol 500 mg tablet 500 mg PO BID #60 tabs 02/08/25 03/09/25 Rx raloxifene 60 mg tablet 60 mg PO DAILY #30 tabs 02/08/25 03/09/25 Rx New Prescriptions to Start Prescriptions: Allergies Allergy/AdvReac Type Severity Reaction Status Date / Time atorvastatin AdvReac Mild myalgias Verified 02/20/25 13:11 Assessment and Plan *Assessment and plan (1) Acute pain of left knee: Status: Acute Category: Medical Code(s): M25.562 - Pain in left knee Plan Patient is doing well currently and does not need any refills or other interventions at this time. Patient will return to clinic in 3 months. Patient has been instructed to contact the clinic with any concerns before the next appointment. Dr. Poole has reviewed this note and agrees with this plan of care. This note was dictated using voice recognition software and make contain errors or omissions. All injections are used with Lidocaine, Bupivacaine and dexamethasone. Occasionally urine drug screen is needed to verify patient's compliance with our office pain contract. This is ordered based off specific treatments related to chronic pain with the potential to abuse certain medications.
== END 2025-03-09 23:59 | disposition home or self-care (01) ==
LOC: SC.PAIN 14:54
PROVIDERS: PCP Internal Medicine Adolescent Medicine; Visit Provider Nurse Practitioner Family
DX: M25.562 Pain in left knee (principal); F17.210 Nicotine dependence, cigarettes, uncomplicated
CPT/HCPCS: 99212; G0463

== ENCOUNTER 2025-04-17 06:03 | Inpatient (IN) | payer MEDICARE, SELFPAY ==
[2025-04-17] VITALS (14 sets, daily range): BP systolic 97–116; BP diastolic 53–73; PULSE 70–100; RESP 14–21; TEMP 36.4–37; O2SAT 92–96; BMI 18.7; BMI 18.9; BMI 18.8
--- NOTE | 2025-04-17 06:11 | CT_ITS ---
FINAL REPORT TECHNIQUE: Thin section axial images are obtained through the abdomen and pelvis after intravenous contrast. Reconstruction images were obtained from the axial data. Exam was performed using dose reduction techniques. CLINICAL HISTORY: vomiting distension, likely obstruction COMPARISON: 10/23/2022 FINDINGS: LUNG BASES: Chronic findings at the lung bases. No acute process in the lungs. Heart size is normal. LIVER: Homogeneous. No focal lesion. GALLBLADDER/BILIARY SYSTEM: Gallbladder is absent. Intrahepatic and mild extrahepatic biliary ductal dilatation may be related to cholecystectomy. SPLEEN: Unremarkable. PANCREAS: Unremarkable. ADRENALS: Mild adrenal hyperplasia. KIDNEYS/URETERS/BLADDER: No hydronephrosis, renal mass, or renal stone. Unremarkable urinary bladder. GI TRACT: Dilated small bowel loops are noted. Decompressed loops in the pelvis. Terminal ileum is decompressed. Findings are concerning for small bowel obstruction. Thickened loops of small bowel in the pelvis are nonspecific. Appendix is normal. PELVIC ORGANS: Uterus is absent. LYMPH NODES/RETROPERITONEUM/MESENTERY: No lymphadenopathy. No abdominal aortic aneurysm. ABDOMINAL WALL: The abdominal wall is intact. FREE FLUID: No ascites. BONES: Multiple lumbar compression deformities appear similar to the previous MRI. IMPRESSION: Findings concerning for small bowel obstruction. Transition point difficult to identify but located in the pelvis. Biliary ductal dilatation favored to be related to cholecystectomy Reviewed, Interpreted and Dictated by Shayla Rogel MD Transcribed by Dianne Lucas Authenticated and [facility]
--- NOTE | 2025-04-17 06:14 | HMH.EDGENADL ---
Discharge Plan Disposition Patient Disposition: Admitted Condition: Good Clinical Impressions Clinical Impression: SBO (small bowel obstruction), DA (acute kidney injury) Discharge ED Provider: Renetta Reese General Adult HPI <Patrizia Boateng MD - Last Filed: 04/17/25 23:12> General Chief complaint: Abdominal Pain Stated complaint: bowel obstruction Time Seen by Provider: 04/17/25 06:11 History of Present Illness HPI narrative: 80-year-old female presents to the ER concern for bowel obstruction. Patient reports she has history of multiple previous bowel obstructions, she also has a history of paroxysmal A-fib, previous smoking history but per reports she has quit, history of COPD, CAD, hypertension, hyperlipidemia, diastolic heart failure. Patient reports she has had multiple surgeries for bowel obstructions by Dr. Mercado in the past. She states in the last 2 days she has started having nausea, abdominal pain. She has a history of constipation and typically takes laxatives, yesterday she started having vomiting of her laxative. She only produced a very small, hard bowel movement yesterday, she has not had a bowel movement today. Her abdomen has become progressively more distended and she is vomiting anything she takes in. She now reports she is vomiting green bile. No fevers or chills, no chest pain or difficulty breathing, numbness, tingling, or weakness. Patient reports pain 4 out of 10. Related Data Home Medications ?Medication ?Instructions ?Recorded ?Confirmed spironolactone 25 mg tablet 25 mg PO BID 02/15/22 04/17/25 pantoprazole 40 mg tablet,delayed 40 mg PO DAILY 10/23/22 04/17/25 release denosumab 60 mg/mL subcutaneous 60 mg SQ [id number] 04/04/25 04/17/25 syringe (Prolia) metoprolol succinate 25 mg 25 mg PO DAILY 04/04/25 04/17/25 tablet,extended release 24 hr polyethylene glycol 3350 17 17 g PO DAILYP PRN Constipation 04/04/25 04/17/25 gram/dose oral powder (Miralax) aspirin 81 mg tablet 81 mg PO DAILY 04/17/25 04/17/25 docusate sodium 50 mg tablet 50 mg PO DAILY Constipation 04/17/25 04/17/25 metoclopramide HCl 5 mg tablet 5 mg PO BID 04/17/25 04/17/25 ondansetron 4 mg disintegrating 4 mg PO Q8HP PRN Nausea And 04/17/25 04/17/25 tablet Vomiting rosuvastatin 20 mg tablet 20 mg PO DAILY 04/17/25 04/17/25 Previous Rx's ?Medication ?Instructions ?Recorded ipratropium 0.5 mg-albuterol 3 mg 3 ml inhalation Q8H 3 months #540 04/04/25 (2.5 mg base)/3 mL nebulization mL soln Allergies Allergy/AdvReac Type Severity Reaction Status Date / Time atorvastatin AdvReac Mild myalgias Verified 04/04/25 11:49 PFS <Patrizia Boateng MD - Last Filed: 04/17/25 23:12> [facility] Disclaimer: The information contained in this section may have been updated after the patient was seen, as this information can be updated by other users. Medical History Epigastric pain Bloating Chest pain Lung nodule Smoking greater than 30 pack years Dyspnea on exertion Screening for lung cancer History of COPD Stopped smoking with greater than 30 pack year history Shortness of breath Pneumonia History of COVID-19 History of gastroesophageal reflux (GERD) History of chest pain Small intestine obstruction SOB (shortness of breath) on exertion Fatigue KM (obstructive sleep apnea) COPD (chronic obstructive pulmonary disease) Surgical History History of arthroscopy of shoulder History of hysterectomy History of colonoscopy History of colon resection Family History Other Coronary artery disease Family history of GERD Family history of cancer Family history of diabetes mellitus type II Family history of hyperlipidemia Family history of hypertension Family history of myocardial infarction Social History Smoking Status: Former smoker tobacco type: cigarettes packs per day: 1 second hand exposure: No alcohol intake: never counseling provided: none substance use type: denies use current occupational status: other Travel in the last 8 weeks?: None household members: none housing: house current occupational exposures/hazards: No caffeine: Yes Have you lived/traveled outside US in past 30 days?: No Contact w/someone who lives/traveled outside US past 30 days?: No Exposure to someone with infectious disease in past 14 days?: No Do you have a fever (greater than 100.4 F or 38 C)?: No Have you tested positive for COVID-19?: No Exposed to someone with COVID-19 in past 14 days?: No Do you have a sore throat?: No Do you have a cough?: No Do you have any weakness?: No Do you have any diarrhea?: No Are you experiencing any unusual bleeding?: No Do you have any muscle aches/pain?: No Do you have any abdominal pain?: No Are you experiencing loss of taste or smell?: No Other Medical History Have you received the Flu Vaccine for this season: Yes Have you received the Pneumonia Vaccine: Yes <Patrizia Boateng MD - Last Filed: 04/17/25 23:12> ROS Obtained: Yes Systems reviewed as appropriate & no additional complaints except as documented Per HPI Physical Exam <Patrizia Boateng MD - Last Filed: 04/17/25 23:12> General General appearance: alert Comment: Appears uncomfortable but not in distress, nontoxic Head Head exam: atraumatic and normocephalic Eye Eye exam: Present PERRL and EOMI ENT ENT exam: Present mucous membranes moist Neck Neck exam: Present normal inspection and full ROM Chest Chest inspection: Present symmetric chest wall rise Respiratory Respiratory exam: Present normal lung sounds bilaterally; Absent respiratory distress, wheezes or stridor Cardiovascular Cardiovascular exam: Present regular rate and normal rhythm Abdominal Exam Abdominal exam: Present soft, distention and tenderness; Absent guarding, rebound or rigidity Comment: Distended, tender, tympanitic abdomen Extremities Exam Extremities exam: Present full ROM Neurological Exam Neurological exam: Present alert and oriented X3; Absent motor sensory deficit Psychiatric Psychiatric exam: Present normal affect and normal mood Skin Skin exam: Present warm and dry Medical Decision Making <Patrizia Boateng MD - Last Filed: 04/17/25 23:12> Medical Records Medical records reviewed: Yes I reviewed the patient's medical records. Screening: Per USPSTF and CDC recommendations, given the prevalence of disease in our region, it is our hospital?s policy to screen for HIV and viral Hepatitis for all patients aged 18 and over and those with ongoing risk factors. MR Comment: Review of records demonstrates the last time patient had bowel obstruction was October 2022. Notes from Dr. Allran at that time demonstrates she has had previous operative and nonoperative management. She had lysis of adhesions with laparotomy in January [address] Hickman. Her admission in October 2022 did not require operative management based on records. Rich Inquiry Pt receiving controlled substance: No Vital Signs: 04/17/25 06:12 04/17/25 06:15 04/17/25 06:30 Temperature 98.0 F Temperature Source Oral Pulse Rate 85 82 Pulse Rate [Left] 98 H Respiratory Rate 16 Blood Pressure 106/58 L Blood Pressure [Right Arm] 116/73 Blood Pressure Mean Blood Pressure Mean [Right Arm] 87 Blood Pressure Source Blood Pressure Position 02 Sat by Pulse Oximetry 95 94 L 95 Oxygen Delivery Method Room Air 04/17/25 07:03 04/17/25 07:30 04/17/25 07:39 Temperature Temperature Source Pulse Rate 80 70 93 H Pulse Rate [Left] Respiratory Rate 20 18 18 Blood Pressure 114/62 105/59 L 105/59 L Blood Pressure [Right Arm] Blood Pressure Mean 70 69 Blood Pressure Mean [Right Arm] Blood Pressure Source Automatic Cuff Blood Pressure Position Sitting 02 Sat by Pulse Oximetry 95 96 93 L Oxygen Delivery Method Room Air 04/17/25 08:00 04/17/25 08:30 04/17/25 09:00 Temperature Temperature Source Pulse Rate 72 73 89 Pulse Rate [Left] Respiratory Rate 20 18 18 Blood Pressure 104/60 L 116/65 110/62 Blood Pressure [Right Arm] Blood Pressure Mean 74 81 72 Blood Pressure Mean [Right Arm] Blood Pressure Source Blood Pressure Position 02 Sat by Pulse Oximetry 94 L 95 95 Oxygen Delivery Method 04/17/25 09:06 Temperature 98.0 F Temperature Source Oral Pulse Rate 75 Pulse Rate [Left] Respiratory Rate 18 Blood Pressure 110/62 Blood Pressure [Right Arm] Blood Pressure Mean Blood Pressure Mean [Right Arm] Blood Pressure Source Automatic Cuff Blood Pressure Position Sitting 02 Sat by Pulse Oximetry Oxygen Delivery Method Room Air Lab Data Lab Results 04/17/25 06:14: WBC 10.7, RBC 4.33, Hgb 12.9, Hct 39.3, MCV 90.8, MCH 29.8, MCHC 32.8, RDW 13.2, Plt Count 217, MPV 11.2 H, Neut % (Auto) 85.4 H, Lymph % (Auto) 8.4 L, [place] % (Auto) 4.9, Eos % (Auto) 0.7, Baso % (Auto) 0.4, Neut # (Auto) 9.2 H, Lymph # (Auto) 0.9, [place] # (Auto) 0.5, Eos # (Auto) 0.1, Baso # (Auto) 0.0, PT 11.1, INR 1.00, Sodium 134 L, Potassium 4.5, Chloride 101, Carbon Dioxide 24, Anion Gap 13.5, BUN 25 H, Creatinine 1.40 H, Estimated Creat Clear 25, Estimated GFR 36 L, Est GFR ( Amer) 44 L, Glucose 107 H, Lactate 1.0, Calcium 8.4, Total Bilirubin 1.1, AST 32, ALT 16, Alkaline Phosphatase 73, Total Protein 8.1, Albumin 4.7, Globulin 3.4 H, Albumin/Globulin Ratio 1.4, Lipase 84, HCV Ab DESMOND w/Rflx PCR Qn Negative, HIV Ag/Ab Combo Qual Negative 04/17/25 06:14 04/17/25 06:14 Orders (Tests/Meds): ED MEDICATIONS Generic Name Dose Route Start Last Admin Trade Name Freq PRN Reason Stop Dose Admin Acetaminophen 650 mg 04/17/25 09:30 Acetaminophen 325mg Tab PO 05/17/25 09:29 Q4HP PRN Fever or Mild Pain (1-3) Enoxaparin Sodium 30 mg 04/18/25 09:00 Enoxaparin 30mg/0.3ml Syringe SUBCUT 05/18/25 08:59 DAILY ANGELINE Lactated Ringer's 1,000 mls @ 75 mls/hr 04/17/25 09:30 04/17/25 22:21 Lactated Ringer's 1000 Ml Bag IV 05/17/25 09:29 75 mls/hr .[id number] ANGELINE Administration Morphine Sulfate 2 mg 04/17/25 09:30 04/17/25 15:22 Morphine 2mg/Ml Syringe IV 05/17/25 09:29 2 mg Q4HP PRN Administration Moderate Pain (4-6) Morphine Sulfate 4 mg 04/17/25 09:30 Morphine 4mg/Ml Syringe IV 05/17/25 09:29 Q4HP PRN Severe Pain (7-10) Ondansetron HCl 4 mg 04/17/25 09:30 Ondansetron 4mg/2ml Vial IV 05/17/25 09:29 Q6HP PRN Nausea Sodium Chloride 10 ml 04/17/25 09:30 Sodium Chloride 0.9% 10ml Flush Syringe IV 05/17/25 09:29 NEEDED PRN Maintain IV Site Discontinued Medications Generic Name Dose Route Start Last Admin Trade Name Freq PRN Reason Stop Dose Admin Diatrizoate Meglum/Diatrizoate Sod 120 ml 04/17/25 10:45 04/17/25 15:03 Diatrizoate Zeina 66% & Diatrizoate Na 10% 30ml Udc PO 04/17/25 10:46 120 ml ONCE ONE Administration Lactated Ringer's 1,000 mls @ 999 mls/hr 04/17/25 06:11 04/17/25 06:19 Lactated Ringer's 1000 Ml Bag IV 04/17/25 07:11 999 mls/hr .Q1H1M ONE Administration Iopamidol 75 ml 04/17/25 07:21 04/17/25 07:22 Iopamidol-370 (76%);100ml Bottle IV 04/17/25 07:22 75 ml ONCE ONE Administration Morphine Sulfate 2 mg 04/17/25 06:11 04/17/25 06:21 Morphine 4mg/Ml Syringe IV 04/17/25 06:12 2 mg ONCE ONE Administration Ondansetron HCl 4 mg 04/17/25 06:11 04/17/25 06:19 Ondansetron 4mg/2ml Vial IV 04/17/25 06:12 4 mg ONCE ONE Administration Sodium Chloride 10 ml 04/17/25 07:21 04/17/25 07:22 Sodium Chloride 0.9% 10ml Syr (Rad Only) IV 04/17/25 07:22 10 ml ONCE ONE Administration ORDERS Category Date Time Status CT abdomen pelvis w con Stat Cat Scan 04/17/25 06:11 Completed General Surgery Consult [Consult to General Surgery] [ Cons 04/17/25 08:21 Ordered CONS] Stat Complete Blood Count Auto Diff Stat Lab 04/17/25 06:14 Completed Comprehensive Metabolic Panel Stat Lab 04/17/25 06:14 Completed HIV Combo Stat Lab 04/17/25 06:14 Completed Hepatitis C Ab Qual. W/ RFX Stat Lab 04/17/25 06:14 Completed Lactic Acid Stat Lab 04/17/25 06:14 Completed Lipase Stat Lab 04/17/25 06:14 Completed Prothrombin Time INR Stat Lab 04/17/25 06:14 Completed Urinalysis and Microscopic Stat Lab 04/17/25 17:24 Completed Medical Decision Narrative: In summary, this 80-year-old female with comorbidities described in the HPI presents to the emergency department today with concerns of abdominal pain, vomiting, concerned that she has bowel obstruction. On initial evaluation patient is hemodynamically stable, afebrile, she appears uncomfortable but not in acute distress, abdomen is distended, tender, tympanitic, but not rigid. Differential diagnosis includes but is not limited to bowel obstruction, ileus, constipation, urinary tract infection, volvulus, I had considered mesenteric ischemia but patient has had gradual onset and progression of symptoms so I consider this much less likely. Based on these concerns, I ordered serum labs, CT imaging, urine studies. Patient received morphine, Zofran, LR initially for treatment. Labs personally reviewed do not demonstrate leukocytosis. Additional labs and imaging pending at the time of physician shift change. Patient handed off to Dr. Reese in stable condition. DO Hugh: I assumed care of the patient at 7 AM at time of departure previous provider. On my assessment, the patient is lying in bed comfortably with benign abdominal exam and states that she is feeling better with no nausea, no vomiting since arrival to the emergency department. Labs obtained demonstrate reassuring CBC with no significant leukocytosis or anemia. She does have mild DA on chemistry with creatinine of 1.4 from a baseline of around 0.9. She also has very mild hyponatremia, mildly elevated BUN, likely in the setting of volume concentration with nausea and vomiting. Vitals are reassuring on cardiac telemetry. I independently interpreted CT scan prior to radiology read and noted concerns for small bowel obstruction without perforation. Please radiology read for final interpretation. Given small bowel obstruction, I did have an interactive discussion with Dr. Hickman with general surgery who advised that they would follow the patient in consultation. He recommended that if she is not having nausea and vomiting right now, he is okay with holding off on NG tube for the time being. I then had an interactive discussion with the hospitalist who admitted the patient in stable condition. <Renetta Reese DO - Last Filed: 04/17/25 08:35> Vital Signs: 04/17/25 06:12 04/17/25 06:15 04/17/25 06:30 Temperature 98.0 F Temperature Source Oral Pulse Rate 85 82 Pulse Rate [Left] 98 H Respiratory Rate 16 Blood Pressure 106/58 L Blood Pressure [Right Arm] 116/73 Blood Pressure Mean Blood Pressure Mean [Right Arm] 87 Blood Pressure Source Blood Pressure Position 02 Sat by Pulse Oximetry 95 94 L 95 Oxygen Delivery Method Room Air 04/17/25 07:03 04/17/25 07:30 04/17/25 07:39 Temperature Temperature Source Pulse Rate 80 70 93 H Pulse Rate [Left] Respiratory Rate 20 18 18 Blood Pressure 114/62 105/59 L 105/59 L Blood Pressure [Right Arm] Blood Pressure Mean 70 69 Blood Pressure Mean [Right Arm] Blood Pressure Source Automatic Cuff Blood Pressure Position Sitting 02 Sat by Pulse Oximetry 95 96 93 L Oxygen Delivery Method Room Air 04/17/25 08:00 04/17/25 08:30 04/17/25 09:00 Temperature Temperature Source Pulse Rate 72 73 89 Pulse Rate [Left] Respiratory Rate 20 18 18 Blood Pressure 104/60 L 116/65 110/62 Blood Pressure [Right Arm] Blood Pressure Mean 74 81 72 Blood Pressure Mean [Right Arm] Blood Pressure Source Blood Pressure Position 02 Sat by Pulse Oximetry 94 L 95 95 Oxygen Delivery Method 04/17/25 09:06 Temperature 98.0 F Temperature Source Oral Pulse Rate 75 Pulse Rate [Left] Respiratory Rate 18 Blood Pressure 110/62 Blood Pressure [Right Arm] Blood Pressure Mean Blood Pressure Mean [Right Arm] Blood Pressure Source Automatic Cuff Blood Pressure Position Sitting 02 Sat by Pulse Oximetry Oxygen Delivery Method Room Air Lab Data Lab Results 04/17/25 06:14: WBC 10.7, RBC 4.33, Hgb 12.9, Hct 39.3, MCV 90.8, MCH 29.8, MCHC 32.8, RDW 13.2, Plt Count 217, MPV 11.2 H, Neut % (Auto) 85.4 H, Lymph % (Auto) 8.4 L, [place] % (Auto) 4.9, Eos % (Auto) 0.7, Baso % (Auto) 0.4, Neut # (Auto) 9.2 H, Lymph # (Auto) 0.9, [place] # (Auto) 0.5, Eos # (Auto) 0.1, Baso # (Auto) 0.0, PT 11.1, INR 1.00, Sodium 134 L, Potassium 4.5, Chloride 101, Carbon Dioxide 24, Anion Gap 13.5, BUN 25 H, Creatinine 1.40 H, Estimated Creat Clear 25, Estimated GFR 36 L, Est GFR ( Amer) 44 L, Glucose 107 H, Lactate 1.0, Calcium 8.4, Total Bilirubin 1.1, AST 32, ALT 16, Alkaline Phosphatase 73, Total Protein 8.1, Albumin 4.7, Globulin 3.4 H, Albumin/Globulin Ratio 1.4, Lipase 84, HCV Ab DESMOND w/Rflx PCR Qn Negative, HIV Ag/Ab Combo Qual Negative Orders (Tests/Meds): ED MEDICATIONS Generic Name Dose Route Start Last Admin Trade Name Freq PRN Reason Stop Dose Admin Acetaminophen 650 mg 04/17/25 09:30 Acetaminophen 325mg Tab PO 05/17/25 09:29 Q4HP PRN Fever or Mild Pain (1-3) Enoxaparin Sodium 30 mg 04/18/25 09:00 Enoxaparin 30mg/0.3ml Syringe SUBCUT 05/18/25 08:59 DAILY ANGELINE Lactated Ringer's 1,000 mls @ 75 mls/hr 04/17/25 09:30 04/17/25 22:21 Lactated Ringer's 1000 Ml Bag IV 05/17/25 09:29 75 mls/hr .[id number] ANGELINE Administration Morphine Sulfate 2 mg 04/17/25 09:30 04/17/25 15:22 Morphine 2mg/Ml Syringe IV 05/17/25 09:29 2 mg Q4HP PRN Administration Moderate Pain (4-6) Morphine Sulfate 4 mg 04/17/25 09:30 Morphine 4mg/Ml Syringe IV 05/17/25 09:29 Q4HP PRN Severe Pain (7-10) Ondansetron HCl 4 mg 04/17/25 09:30 Ondansetron 4mg/2ml Vial IV 05/17/25 09:29 Q6HP PRN Nausea Sodium Chloride 10 ml 04/17/25 09:30 Sodium Chloride 0.9% 10ml Flush Syringe IV 05/17/25 09:29 NEEDED PRN Maintain IV Site Discontinued Medications Generic Name Dose Route Start Last Admin Trade Name Freq PRN Reason Stop Dose Admin Diatrizoate Meglum/Diatrizoate Sod 120 ml 04/17/25 10:45 04/17/25 15:03 Diatrizoate Zeina 66% & Diatrizoate Na 10% 30ml Udc PO 04/17/25 10:46 120 ml ONCE ONE Administration Lactated Ringer's 1,000 mls @ 999 mls/hr 04/17/25 06:11 04/17/25 06:19 Lactated Ringer's 1000 Ml Bag IV 04/17/25 07:11 999 mls/hr .Q1H1M ONE Administration Iopamidol 75 ml 04/17/25 07:21 04/17/25 07:22 Iopamidol-370 (76%);100ml Bottle IV 04/17/25 07:22 75 ml ONCE ONE Administration Morphine Sulfate 2 mg 04/17/25 06:11 04/17/25 06:21 Morphine 4mg/Ml Syringe IV 04/17/25 06:12 2 mg ONCE ONE Administration Ondansetron HCl 4 mg 04/17/25 06:11 04/17/25 06:19 Ondansetron 4mg/2ml Vial IV 04/17/25 06:12 4 mg ONCE ONE Administration Sodium Chloride 10 ml 04/17/25 07:21 04/17/25 07:22 Sodium Chloride 0.9% 10ml Syr (Rad Only) IV 04/17/25 07:22 10 ml ONCE ONE Administration ORDERS Category Date Time Status CT abdomen pelvis w con Stat Cat Scan 04/17/25 06:11 Completed General Surgery Consult [Consult to General Surgery] [ Cons 04/17/25 08:21 Ordered CONS] Stat Complete Blood Count Auto Diff Stat Lab 04/17/25 06:14 Completed Comprehensive Metabolic Panel Stat Lab 04/17/25 06:14 Completed HIV Combo Stat Lab 04/17/25 06:14 Completed Hepatitis C Ab Qual. W/ RFX Stat Lab 04/17/25 06:14 Completed Lactic Acid Stat Lab 04/17/25 06:14 Completed Lipase Stat Lab 04/17/25 06:14 Completed Prothrombin Time INR Stat Lab 04/17/25 06:14 Completed Urinalysis and Microscopic Stat Lab 04/17/25 17:24 Completed ECG Data Tracing #1: I reviewed this ECG and interpreted as documented below: Normal sinus rhythm with a ventricular rate of 83 bpm. PVCs. No acute ST changes concerning for ischemia. ECG initial impression date: 04/17/25 ECG initial impression time: 07:44 Medical Decision Narrative: In summary, this 80-year-old female with comorbidities described in the HPI presents to the emergency department today with concerns of abdominal pain, vomiting, concerned that she has bowel obstruction. On initial evaluation patient is hemodynamically stable, afebrile, she appears uncomfortable but not in acute distress, abdomen is distended, tender, tympanitic, but not rigid. Differential diagnosis includes but is not limited to bowel obstruction, ileus, constipation, urinary tract infection, volvulus, I had considered mesenteric ischemia but patient has had gradual onset and progression of symptoms so I consider this much less likely. Based on these concerns, I ordered serum labs, CT imaging, urine studies. Patient received morphine, Zofran, LR initially for treatment. Labs personally reviewed demonstrate []. XR personally interpreted demonstrates []. CT imaging personally interpreted demonstrate []. I had an interactive discussion with []. On reassessment []. Patient's prescriptions were reviewed and []. Admission as considered and []. Of note, social determinants of health include []. DO Hugh: I assumed care of the patient at 7 AM at time of departure previous provider. On my assessment, the patient is lying in bed comfortably with benign abdominal exam and states that she is feeling better with no nausea, no vomiting since arrival to the emergency department. Labs obtained demonstrate reassuring CBC with no significant leukocytosis or anemia. She does have mild DA on chemistry with creatinine of 1.4 from a baseline of around 0.9. She also has very mild hyponatremia, mildly elevated BUN, likely in the setting of volume concentration with nausea and vomiting. Vitals are reassuring on cardiac telemetry. I independently interpreted CT scan prior to radiology read and noted concerns for small bowel obstruction without perforation. Please radiology read for final interpretation. Given small bowel obstruction, I did have an interactive discussion with Dr. Hickman with general surgery who advised that they would follow the patient in consultation. He recommended that if she is not having nausea and vomiting right now, he is okay with holding off on NG tube for the time being. I then had an interactive discussion with the hospitalist who admitted the patient in stable condition. Critical Care <Renetta Reese DO - Last Filed: 04/17/25 08:35> Critical Care Time Critical Care Time: No
--- OUTSIDE RECORDS SUMMARY | 2025-04-17 06:16 | XMS_ITS | Data Portability ---
Author Organization [facility] Address [address] [place] [address] Assessment Encounter Date Assessment Date Assessment LastModified by Organization Details LastModified Time 01/07/2023 01/07/2023 This patient did well with her kyphoplasty bilaterally of L1 and T11. Upon discharge she was completely pain-free. She is neurologically intact. We discharged her home and she was doing well. We will follow-up with her in our [place] office in 2 weeks. abux Not available [...] Name and Address Organization Details Recorded Time Kyphoplasty completed Beto Poole MD [address], [address], [facility] 01/07/2023 17:08:22 [...] Not Available Not Available Vitals Date Recorded Body height Body mass index (BMI) Body weight Heart rate Oxygen saturation Oxygen saturation in Arterial blood by Pulse oximetry Systolic blood pressure Diastolic blood pressure Provider Name and Address Organization Details Last Updated DateTime 3 165.1 cm 18.3 kg/m2 00282.1 6 g 74 /min 96 % 96 % 147 mm[Hg] 84 mm[Hg] Tesha fontana [place] - [facility] 13:02:25 Social History None recorded. Functional Status None recorded. Mental Status None recorded. Family History Nothing Reported. Medical History No medical history recorded. Gynecological HistoryNo gynecological history recorded. Obstetrics History GPAL:G 0 P 0 0 0 0 Past Encounters Encounter ID Performer Location Encounter Start Date Encounter Closed Date Diagnosis/Indication Diagnosis SNOMED-CT Code Diagnosis ICD10 Code Diagnosis Note [id number] Beto Poole MD [place] [facility] [address] [place] [address],[facility] [address] [place] [address] 01/07/2023 12:54:26 01/07/2023 15:34:39 Osteoporotic fracture of vertebra 4574993330 [id number] M80.08XA Health Concerns Section Related Observation LastModified by Organization Detai ls LastModified Time None Recorded Concern Status LastModified by Organization Details LastModified Time None Recorded Advance Directives Directive None Recorded Payers Encounter Date Sequence Insurance Name Policy Number Policy Hubbard Covered Member ID Hubbard Member ID Guarantor Name 01/07/2023 1 [place] Nadira L Sowder [id number] Nadira L Sowder 01/07/2023 2 [place] [id number] Nadira L Sowder [id number] Nadira L Sowder OBGyn Episode No OBEpisode recorded.
[2025-04-17] MEDS: ONDANSETRON 4MG/2ML VIAL 4 MG IV (06:19)
[2025-04-17] MEDS: LACTATED RINGERS 1000ML 1,000 ML 999 ML IV (06:19)
[2025-04-17] MEDS: MORPHINE 4MG/ML SYRINGE 2 MG IV (06:21)
[2025-04-17 06:23] LABS: Basophils % 0.4 % (0.1-2.0); Eosinophils # 0.1 Kmm3 (0.0-0.4); Eosinophils % 0.7 % (0.1-12.0); Hematocrit 39.3 % (37.0-47.0); Hemoglobin 12.9 g/dL (12.2-16.2); Immature Granulocytes # 0.02 10^3uL; Immature Granulocytes % 0.2 %; Lymphocytes # 0.9 K/mm3 (0.7-4.5); Lymphocytes % 8.4 % (10-50); Mean Corpuscular HGB Conc 32.8 g/dL (31.8-35.4); Mean Corpuscular Hemoglobin 29.8 pg (27.0-31.2); Mean Corpuscular Volume 90.8 fl (81-99); Mean Platelet Volume 11.2 fl (7.4-10.4); Monocytes # 0.5 K/mm3 (0.1-1.0); Monocytes % 4.9 % (1.7-9.3); Neutrophils # 9.2 K/mm3 (1.8-7.8); Neutrophils % 85.4 % (37.0-80.0); Nucleated Red Blood Cells # 0 10^3/uL; Nucleated Red Blood Cells % 0 %; Platelet Count 217 K/mm3 (142-424); Red Blood Count 4.33 M/mm3 (4.20-5.40); Red Cell Distribution Width 13.2 % (11.5-17.5); White Blood Count 10.7 K/mm3 (4.8-10.8)
[2025-04-17 06:40] LABS: Albumin Level 4.7 g/dl (3.5-5.0); Chloride 101 mmol/L (98-107); Potassium 4.5 mmoL/L (3.5-5.1); Sodium 134 mmol/L (136-145)
[2025-04-17 06:42] LABS: Blood Urea Nitrogen 25 mg/dl (7-17); Creatinine Clearance Estimated 25 mL/min (50-200); Estimated Glomerular Filt Rate 36 ml/min (>60); GFR (African American) 44 ML/MIN (>60); Prothrombin Time 11.1 seconds (10.1-12.5)
[2025-04-17 06:43] LABS: Alanine Aminotransferase 16 U/L (12-78); Albumin/Globulin Ratio 1.4 (1.1-1.8); Alkaline Phosphatase 73 U/L (38-126); Anion Gap 13.5 mEq/L (5-15); Aspartate Amino Transferase 32 U/L (14-36); Bilirubin,Total 1.1 mg/dl (0.2-1.3); Calcium 8.4 mg/dl (8.4-10.2); Carbon Dioxide 24 mmol/L (22.0-30.0); Globulin 3.4 g/dL (1.3-3.2); Glucose 107 mg/dl (74-100); Total Protein,Serum 8.1 g/dl (6.3-8.2)
--- NOTE | 2025-04-17 07:10 | PC.NURSE ---
Pt is gone out of the room to CT.
[2025-04-17 07:14] LABS: Lipase 84 U/L (23-300)
[2025-04-17] MEDS: SODIUM CHLORIDE 0.9% 10ML SYR (RAD ONLY) 10 ML IV (07:22)
[2025-04-17] MEDS: IOPAMIDOL-370 (76%);100ML BOTTLE 75 ML IV (07:22)
--- NOTE | 2025-04-17 07:42 | ECG_ITS ---
APPROVED REPORT Exam: Resting ECG HR:83 bpm ECG Measurements Heart Rate [address] 151 P 65 QRSd 98 QRS 68 QT 404 T 34 QTc 444 Conclusion SINUS RHYTHM WITH OCCASIONAL VENTRICULAR PREMATURE COMPLEXES MINIMAL ST DEPRESSION [0.025+ mV ST DEPRESSION] No STEMI Electronically signed by : NANDA DEL ROSARIO, 04/18/2025 02:21:54
--- NOTE | 2025-04-17 08:22 | PC.NURSE ---
Dr. Reese speaking with Dr. Delaney regarding admission.
--- NOTE | 2025-04-17 08:22 | PC.NURSE ---
Dr. Reese speaking with Dr. Delaney.
[2025-04-17 08:25] LABS: HIV Combo NEGATIVE (Negative)
--- NOTE | 2025-04-17 08:29 | PC.NURSE ---
house notified of admission.
[2025-04-17 08:32] LABS: Hepatitis C Ab Qual. W/ RFX NEGATIVE (Negative)
--- NOTE | 2025-04-17 09:11 | HMH.PHAINT1 ---
Pharmacy Intervention Comments: MEDICATION RECONCILIATION COMPLETED ON PATIENT USING EXTERNAL FILL HISTORY FROM PHARMACY. -ALEX BOBO, RAFID
--- NOTE | 2025-04-17 09:16 | EXP.SURG.CON ---
History of Present Illness *Admission Date: 04/17/25 *Reason for visit:: Small bowel obstruction *History of present illness: This is an 80-year-old female who presented to the emergency department for evaluation and management of possible recurrent small bowel obstruction. See HPI/medical decision narrative forwarded from emergency department evaluation below. The patient states that she had a small bowel movement yesterday morning and has passed gas a few times since . She states that she passed a little gas about an hour ago . However, she is feeling a little more pain and a little more nauseous . She states that she has always required a nasogastric tube and thinks she might need one again . Forwarded from emergency department evaluation: 80-year-old female presents to the ER concern for bowel obstruction. Patient reports she has history of multiple previous bowel obstructions, she also has a history of paroxysmal A-fib, previous smoking history but per reports she has quit, history of COPD, CAD, hypertension, hyperlipidemia, diastolic heart failure. Patient reports she has had multiple surgeries for bowel obstructions by Dr. Mercado in the past. She states in the last 2 days she has started having nausea, abdominal pain. She has a history of constipation and typically takes laxatives, yesterday she started having vomiting of her laxative. She only produced a very small, hard bowel movement yesterday, she has not had a bowel movement today. Her abdomen has become progressively more distended and she is vomiting anything she takes in. She now reports she is vomiting green bile. No fevers or chills, no chest pain or difficulty breathing, numbness, tingling, or weakness. Patient reports pain 4 out of 10. Medical Decision Narrative: In summary, this 80-year-old female with comorbidities described in the HPI presents to the emergency department today with concerns of abdominal pain, vomiting, concerned that she has bowel obstruction. On initial evaluation patient is hemodynamically stable, afebrile, she appears uncomfortable but not in acute distress, abdomen is distended, tender, tympanitic, but not rigid. Differential diagnosis includes but is not limited to bowel obstruction, ileus, constipation, urinary tract infection, volvulus, I had considered mesenteric ischemia but patient has had gradual onset and progression of symptoms so I consider this much less likely. Based on these concerns, I ordered serum labs, CT imaging, urine studies. The patient underwent exploratory laparotomy in January 2022 for bowel obstruction. Extensive lysis of adhesions completed. Readmission in February 2022 for ileus versus immediate recurrent obstruction . Patient managed non-operatively. Readmission in October 2022 for possible small bowel obstruction. Upper GI/small bowel follow-through completed and was essentially normal. Patient managed non-operatively. The patient was seen on April 04, 2025 in the outpatient setting by the gastroenterology service regarding intermittent bloating . PFSH PFSH Disclaimer: The information contained in this section may have been updated after the patient was seen, as this information can be updated by other users. Medical History Epigastric pain Bloating Chest pain Lung nodule Smoking greater than 30 pack years Dyspnea on exertion Screening for lung cancer History of COPD Stopped smoking with greater than 30 pack year history Shortness of breath Pneumonia History of COVID-19 History of gastroesophageal reflux (GERD) History of chest pain Small intestine obstruction SOB (shortness of breath) on exertion Fatigue KM (obstructive sleep apnea) COPD (chronic obstructive pulmonary disease) Surgical History History of arthroscopy of shoulder History of hysterectomy History of colonoscopy History of colon resection Family History Other Coronary artery disease Family history of GERD Family history of cancer Family history of diabetes mellitus type II Family history of hyperlipidemia Family history of hypertension Family history of myocardial infarction Social History Smoking Status: Former smoker tobacco type: cigarettes packs per day: 1 second hand exposure: No alcohol intake: never counseling provided: none substance use type: denies use current occupational status: other Travel in the last 8 weeks?: None household members: none housing: house current occupational exposures/hazards: No caffeine: Yes Have you lived/traveled outside US in past 30 days?: No Contact w/someone who lives/traveled outside US past 30 days?: No Exposure to someone with infectious disease in past 14 days?: No Do you have a fever (greater than 100.4 F or 38 C)?: No Have you tested positive for COVID-19?: No Exposed to someone with COVID-19 in past 14 days?: No Do you have a sore throat?: No Do you have a cough?: No Do you have any weakness?: No Do you have any diarrhea?: No Are you experiencing any unusual bleeding?: No Do you have any muscle aches/pain?: No Do you have any abdominal pain?: No Are you experiencing loss of taste or smell?: No Meds Home Medications and Allergies Home Medications ?Medication ?Instructions ?Recorded ?Confirmed ?Type spironolactone 25 mg tablet 25 mg PO BID 02/15/22 04/17/25 History pantoprazole 40 mg tablet,delayed 40 mg PO DAILY 10/23/22 04/17/25 History release denosumab 60 mg/mL subcutaneous 60 mg SQ [id number] 04/04/25 04/17/25 History syringe (Prolia) ipratropium 0.5 mg-albuterol 3 mg 3 ml inhalation Q8H 3 months #540 04/04/25 04/17/25 Rx (2.5 mg base)/3 mL nebulization mL soln metoprolol succinate 25 mg 25 mg PO DAILY 04/04/25 04/17/25 History tablet,extended release 24 hr polyethylene glycol 3350 17 17 g PO DAILYP PRN Constipation 04/04/25 04/17/25 History gram/dose oral powder (Miralax) aspirin 81 mg tablet 81 mg PO DAILY 04/17/25 04/17/25 History docusate sodium 50 mg tablet 50 mg PO DAILY Constipation 04/17/25 04/17/25 History metoclopramide HCl 5 mg tablet 5 mg PO BID 04/17/25 04/17/25 History ondansetron 4 mg disintegrating 4 mg PO Q8HP PRN Nausea And 04/17/25 04/17/25 History tablet Vomiting rosuvastatin 20 mg tablet 20 mg PO DAILY 04/17/25 04/17/25 History New Prescriptions to Start Prescriptions: Allergies Allergy/AdvReac Type Severity Reaction Status Date / Time atorvastatin AdvReac Mild myalgias Verified 04/04/25 11:49 Exam (Inpt) Vital signs and Labs for Last 24 Hours: Temp Pulse Resp BP Pulse Ox O2 Del Method 98.0 F 75 18 110/62 95 Room Air 04/17/25 09:06 04/17/25 09:06 04/17/25 09:06 04/17/25 09:06 04/17/25 09:00 04/17/25 09:06 Laboratory Results - last 24 hr 04/17/25 06:14: WBC 10.7, RBC 4.33, Hgb 12.9, Hct 39.3, MCV 90.8, MCH 29.8, MCHC 32.8, RDW 13.2, Plt Count 217, MPV 11.2 H, Neut % (Auto) 85.4 H, Lymph % (Auto) 8.4 L, [place] % (Auto) 4.9, Eos % (Auto) 0.7, Baso % (Auto) 0.4, Neut # (Auto) 9.2 H, Lymph # (Auto) 0.9, [place] # (Auto) 0.5, Eos # (Auto) 0.1, Baso # (Auto) 0.0, PT 11.1, INR 1.00, Sodium 134 L, Potassium 4.5, Chloride 101, Carbon Dioxide 24, Anion Gap 13.5, BUN 25 H, Creatinine 1.40 H, Estimated Creat Clear 25, Estimated GFR 36 L, Est GFR ( Amer) 44 L, Glucose 107 H, Lactate 1.0, Calcium 8.4, Total Bilirubin 1.1, AST 32, ALT 16, Alkaline Phosphatase 73, Total Protein 8.1, Albumin 4.7, Globulin 3.4 H, Albumin/Globulin Ratio 1.4, Lipase 84, HCV Ab DESMOND w/Rflx PCR Qn Negative, HIV Ag/Ab Combo Qual Negative I & O for Labs for Last 24 Hours: Intake & Output 04/14/25 04/15/25 04/16/25 04/17/25 11:59 11:59 11:59 11:59 Weight 109 lb Constitutional: no acute distress Respiratory: Absent respiratory distress Cardiac: Absent Tachycardia GI: Present soft and tenderness Results Labs 04/17/25 06:14 04/17/25 06:14 Labs: Laboratory Results - last 24 hr 04/17/25 06:14: WBC 10.7, RBC 4.33, Hgb 12.9, Hct 39.3, MCV 90.8, MCH 29.8, MCHC 32.8, RDW 13.2, Plt Count 217, MPV 11.2 H, Neut % (Auto) 85.4 H, Lymph % (Auto) 8.4 L, [place] % (Auto) 4.9, Eos % (Auto) 0.7, Baso % (Auto) 0.4, Neut # (Auto) 9.2 H, Lymph # (Auto) 0.9, [place] # (Auto) 0.5, Eos # (Auto) 0.1, Baso # (Auto) 0.0, PT 11.1, INR 1.00, Sodium 134 L, Potassium 4.5, Chloride 101, Carbon Dioxide 24, Anion Gap 13.5, BUN 25 H, Creatinine 1.40 H, Estimated Creat Clear 25, Estimated GFR 36 L, Est GFR ( Amer) 44 L, Glucose 107 H, Lactate 1.0, Calcium 8.4, Total Bilirubin 1.1, AST 32, ALT 16, Alkaline Phosphatase 73, Total Protein 8.1, Albumin 4.7, Globulin 3.4 H, Albumin/Globulin Ratio 1.4, Lipase 84, HCV Ab DESMOND w/Rflx PCR Qn Negative, HIV Ag/Ab Combo Qual Negative Imaging CT scan - abdomen: report reviewed and image reviewed CT scan - pelvis: report reviewed and image reviewed Assessment and Plan *Assessment and plan (1) SBO (small bowel obstruction): Status: Acute Category: Medical Code(s): K56.609 - Unspecified intestinal obstruction, unspecified as to partial versus complete obstruction Plan: History of multiple/recurrent small bowel obstructions (managed operatively and nonoperatively). Small bowel movement yesterday and small amount of flatus about an hour ago noted. The patient believes she would benefit from nasogastric decompression. Nasogastric tube ordered Serial abdominal exams Serial abdominal films
--- NOTE | 2025-04-17 11:26 | HMH.ITSTN ---
pt does not have NG tube per RN, will call when it's placed.
--- NOTE | 2025-04-17 11:48 | XR_ITS ---
FINAL REPORT CLINICAL HISTORY: ng tube placement COMPARISON: None FINDINGS: A single supine view of the abdomen was obtained. There is no prior for comparison. An NG tube is present with its tip in the stomach, however the sidehole may be above the diaphragm. There are multiple dilated loops of small bowel identified in the abdomen. Contrast is present in the renal collecting systems bilaterally as well as in the bladder consistent with a history of a recent CT examination. IMPRESSION: An NG tube is present with its tip in the stomach, however the sidehole may be above the diaphragm. Would suggest advancing the NG tube and repeating exam. Reviewed, Interpreted and Dictated by Shayla Rogel MD Transcribed by Mary Ang Authenticated and [facility]
--- NOTE | 2025-04-17 12:16 | P.HP_ITS ---
<Statement entered by Manjeet Jordan MD - 04/23/25 17:48> Personally evaluated the patient and agree with the plan of care as outlined by the CREDIT COMPLIANCE OFFICER. History of Present Illness *Admission Date: 04/17/25 *Reason for visit:: Small bowel obstruction *History of present illness: Patient is a 80-year-old female with a history of coronary artery disease, COPD, pulmonary hypertension, atrial fibrillation, sleep apnea, coronary stenting, and small bowel obstruction with surgical intervention in 2021. She has also had previous small bowel obstruction managed nonoperatively with bowel rest and decompression via NG tube later that year in 2021. She presented today with vomiting, abdominal pain, and tenderness. Her last bowel movement was yesterday. CT scan today in the emergency department revealed probable small bowel obstruction. Patient states she is passing flatus but does complain of tenderness to palpation. She currently rates her pain 6 out of 10. She reports vomiting green bile and water. She denies fevers, chills, chest pain, and shortness of breath. Lab work reveals no signs of infection with a white count of 10.7, slightly elevated BUN of 25 and creatinine at 1.4. [facility] Disclaimer: The information contained in this section may have been updated after the patient was seen, as this information can be updated by other users. Medical History Epigastric pain Bloating Chest pain Lung nodule Smoking greater than 30 pack years Dyspnea on exertion Screening for lung cancer History of COPD Stopped smoking with greater than 30 pack year history Shortness of breath Pneumonia History of COVID-19 History of gastroesophageal reflux (GERD) History of chest pain Small intestine obstruction SOB (shortness of breath) on exertion Fatigue KM (obstructive sleep apnea) COPD (chronic obstructive pulmonary disease) Surgical History History of arthroscopy of shoulder History of hysterectomy History of colonoscopy History of colon resection Family History Other Coronary artery disease Family history of GERD Family history of cancer Family history of diabetes mellitus type II Family history of hyperlipidemia Family history of hypertension Family history of myocardial infarction Social History Smoking Status: Former smoker tobacco type: cigarettes packs per day: 1 second hand exposure: No alcohol intake: never counseling provided: none substance use type: denies use current occupational status: other Travel in the last 8 weeks?: None household members: none housing: house current occupational exposures/hazards: No caffeine: Yes Have you lived/traveled outside US in past 30 days?: No Contact w/someone who lives/traveled outside US past 30 days?: No Exposure to someone with infectious disease in past 14 days?: No Do you have a fever (greater than 100.4 F or 38 C)?: No Have you tested positive for COVID-19?: No Exposed to someone with COVID-19 in past 14 days?: No Do you have a sore throat?: No Do you have a cough?: No Do you have any weakness?: No Do you have any diarrhea?: No Are you experiencing any unusual bleeding?: No Do you have any muscle aches/pain?: No Do you have any abdominal pain?: No Are you experiencing loss of taste or smell?: No Other Medical History Have you received the Flu Vaccine for this season: Yes Have you received the Pneumonia Vaccine: Yes Review of Systems Review of Systems Review of systems:: pertinent systems reviewed and negative unless documented below Constitutional Constitutional: Reports poor appetite *Gastrointestinal Gastrointestinal: Reports abdominal pain and Reports constipation Meds Home Medications and Allergies Home Medications ?Medication ?Instructions ?Recorded ?Confirmed ?Type spironolactone 25 mg tablet 25 mg PO BID 02/15/2202/06 History pantoprazole 40 mg tablet,delayed 40 mg PO DAILY 10/2304/17/25 History release denosumab 60 mg/mL subcutaneous 60 mg SQ [id number] 03/1604/17/25 History syringe (Prolia) ipratropium 0.5 mg-albuterol 3 mg 3 ml inhalation Q8H 3 months #540 04/04/25 04/17/25 Rx (2.5 mg base)/3 mL nebulization mL soln metoprolol succinate 25 mg 25 mg PO DAILY 04/04/2502/06 History tablet,extended release 24 hr polyethylene glycol 3350 17 17 g PO DAILYP PRN Constip ation 04/04/25 04/17/25 History gram/dose oral powder (Miralax) aspirin 81 mg tablet 81 mg PO DAILY 04/17/2502/06 History docusate sodium 50 mg tablet 50 mg PO DAILY Constipati on 04/17/25 04/17/25 History metoclopramide HCl 5 mg tablet 5 mg PO BID 04/17/25 History ondansetron 4 mg disintegrating 4 mg PO Q8HP PRN Nause a And 04/17/25 04/17/25 History tablet Vomiting rosuvastatin 20 mg tablet 20 mg PO DAILY 04/17/2502/06 History New Prescriptions to Start Prescriptions: Allergies Allergy/AdvReac Type Severity Reaction Status Date / Time atorvastatin AdvReac Mild myalgias Verified 04/04/25 11:49 Exam Data for Last 24 hours Vital signs and Labs for Last 24 Hours: Temp Pulse Resp BP Pulse Ox O2 Del Method 98.2 F 72 18 108/64 L 94 L Room Air 04/17/25 09:20 04/17/25 09:20 04/17/25 09:20 04/17/25 09:20 04/17/25 09:20 04/17/25 09:20 Laboratory Results - last 24 hr 04/17/25 06:14: WBC 10.7, RBC 4.33, Hgb 12.9, Hct 39.3, MCV 90.8, MCH 29.8, MCHC 32.8, RDW 13.2, Plt Count 217, MPV 11.2 H, Neut % (Auto) 85.4 H, Lymph % (Auto) 8.4 L, [place] % (Auto) 4.9, Eos % (Auto) 0.7, Baso % (Auto) 0.4, Neut # (Auto) 9.2 H, Lymph # (Auto) 0.9, [place] # (Auto) 0.5, Eos # (Auto) 0.1, Baso # (Auto) 0.0, PT 11.1, INR 1.00, Sodium 134 L, Potassium 4.5, Chloride 101, Carbon Dioxide 24, Anion Gap 13.5, BUN 25 H, Creatinine 1.40 H, Estimated Creat Clear 25, Estimated GFR 36 L, Est GFR ( Amer) 44 L, Glucose 107 H, Lactate 1.0, Calcium 8.4, Total Bilirubin 1.1, AST 32, ALT 16, Alkaline Phosphatase 73, Total Protein 8.1, Albumin 4.7, Globulin 3.4 H, Albumin/Globulin Ratio 1.4, Lipase 84, HCV Ab DESMOND w/Rflx PCR Qn Negative, HIV Ag/Ab Combo Qual Negative Temp Pulse Resp BP Pulse Ox 97.9 F 78 18 121/71 94 L 10/23/22 06:27 10/23/22 06:27 10/23/22 06:27 10/23/22 06:27 10/23/22 05:04 Laboratory Results - last 24 hr 10/23/22 01:25: WBC 8.4, RBC 4.76, Hgb 13.7, Hct 42.7, MCV 89.8, MCH 28.8, MCHC 32.0, RDW 13.5, Plt Count 305, MPV 9.4, Neut % (Auto) 85.9 H, Lymph % (Auto) 9.7 L, [place] % (Auto) 3.5, Eos % (Auto) 0.8, Baso % (Auto) 0.3, Neut # (Auto) 7.2, Lymph # (Auto) 0.8, [place] # (Auto) 0.3, Eos # (Auto) 0.1, Baso # (Auto) 0.0, Total Counted 100, Neutrophils % (Manual) 85 H, Lymphocytes % (Manual) 15, Platelet Estimate Normal, RBC Morphology Normal 10/23/22 01:25: Sodium 137, Potassium 4.1, Chloride 102, Carbon Dioxide 21 L, Anion Gap 18.1 H, BUN 37 H, Creatinine 1.30 H, Estimated Creat Clear 31, Estimated GFR 40 L, Est GFR ( Amer) 48 L, Glucose 130 H, Calcium 10.9 H, Total Bilirubin 0.5, AST 33, ALT 26, Alkaline Phosphatase 167 H, Troponin I < 0.01, Total Protein 8.2, Albumin 4.8, Globulin 3.4 H, Albumin/Globulin Ratio 1.4, Lipase 109 10/23/22 01:25: Lactate 1.1 10/23/22 01:58: Urine Color Yellow, Urine Appearance Slightly cloudy, Urine pH 5.5, Ur Specific [place] >= 1.030, Urine Protein Trace, Urine Glucose (UA) Negative, Urine Ketones Trace, Urine Blood Negative, Urine Nitrate Negative, Urine Bilirubin Negative, Urine Urobilinogen 0.2, Ur Leukocyte Esterase Negative, Urine RBC Occasional, Urine WBC Occasional, Calcium Oxalate Crystal Trace, Urine Bacteria 1+, Urine Mucus 1+ 10/23/22 03:57: SARS-CoV-2 (PCR) Not detected, Influenza A Untype (PCR) Not detected, Influenza Type B (PCR) Not detected 10/23/22 04:45: Troponin I < 0.01 I & O for Last 24 hours: Intake & Output 04/14/25 04/15/25 04/16/25 04/17/25 23:59 23:59 23:59 23:59 Weight 50.122 kg Intake & Output 10/20/22 10/21/22 10/22/22 10/23/22 11:59 11:59 11:59 11:59 Weight 121 lb 9 oz Constitutional Constitutional: no acute distress and thin *Routine HEENT Exam Head: Present normocephalic Eye: Present EOMI and PERRL ENT: Present mucous membranes moist Comments: NG tube in left nostril draining dark fluid *Routine Neck Exam Neck: Present supple; Absent lymphadenopathy *Routine Respiratory Exam Respiratory: Present CTA bilaterally and normal respiratory effort *Routine Cardiovascular Exam Cardiovascular: Present RRR *Routine Abdominal Exam Abdominal: Present tenderness, firm and surgical scars *Routine Rectal Exam Rectal:: deferred *Routine Genitalia Exam Genitalia:: deferred *Routine Extremities Exam Extremities: Present full ROM; Absent cyanosis, clubbing or edema *Routine Skin Exam Skin: Present warm; Absent rash *Routine Neurological Exam Neurological: Present alert and oriented X3 Assessment and Plan *Assessment and plan (1) SBO (small bowel obstruction): Status: Acute Category: Medical Code(s): K56.609 - Unspecified intestinal obstruction, unspecified as to partial versus complete obstruction (2) DA (acute kidney injury): Status: Acute Category: Medical Code(s): N17.9 - Acute kidney failure, unspecified (3) Epigastric pain: Status: Acute Category: Medical Code(s): R10.13 - Epigastric pain Plan #Small bowel obstruction #Epigastric pain ?Upon arrival to the floor, patient was in to be 6 out of 10 pain. Morphine 2 mg every 4 hours as needed ordered as needed for pain based upon pain scale. Tylenol 650 every 4 hours as needed for mild pain. ?CT shows probable small bowel obstruction. ?General Surgery consulted. ?NG tube placement ordered to continuous low wall suction. ?Patient n.p.o. for bowel rest. ?Patient complains of nausea, Zofran 4 mg every 6 hours ordered for nausea as needed. ?Serial imaging ordered. Repeat KUB in the morning ordered per surgery. ?Repeat CBC, CMP, magnesium level ordered for the morning. #Acute kidney injury ?BUN of 25, creatinine of 1.4, slightly above baseline we will continue to monitor. ?Maintenance fluids ordered, lactated Ringer's at 75 mL an hour. ?CMP in the morning to check renal function. Full code N.p.o. diet DVT prophylaxis- Lovenox 30 mg s.q. daily Ambulate as tolerated
--- NOTE | 2025-04-17 12:46 | HMH.ITSTN ---
PT HAS NOT BEEN DOSED YET DUE TO NG TUBE NOT BEING IN CORRECT POSITION
--- NOTE | 2025-04-17 12:53 | XR_ITS ---
FINAL REPORT CLINICAL HISTORY: ng tube placement COMPARISON: Exam performed earlier today FINDINGS: SINGLE VIEW ABDOMEN A single view of the abdomen was obtained. There is a nonobstructive bowel gas pattern. NG tube has been advanced now with the sidehole below the diaphragm. Dilated small bowel loops are again identified. IMPRESSION: Interval advancement of NG tube with sidehole now below the diaphragm. Reviewed, Interpreted and Dictated by Shayla Rogel MD Transcribed by Maddie Soni Authenticated and . [facility]
[2025-04-17] MEDS: LACTATED RINGERS 1000ML 1,000 ML 75 ML IV ×2 (13:16→22:21)
--- NOTE | 2025-04-17 13:22 | PC.NURSE ---
NG placed to right nare. KUB recommended to advance ng tube. advanced NG and ordered repeat KUB, awaiting results. patient is sitting up in bed watching tv, call light within reach.
--- NOTE | 2025-04-17 13:27 | HMH.ITSTN ---
NG TUBE IN POSITION, BUT PER RN PT HAVING LARGE OUTPUT FROM NG TUBE. RN TO MONITOR FOR NEXT HOUR AND ELIZABETH CHECK BACK ON IF PROCEEDING WITH TEST
--- NOTE | 2025-04-17 14:52 | PC.NURSE ---
MD allowed for patient to have a small amount of ice chips.
[2025-04-17] MEDS: DIATRIZOATE MEG 66% & DIATRIZOATE NA 10% 30ML UDC 120 ML PO (15:03)
[2025-04-17] MEDS: MORPHINE 2MG/ML SYRINGE 2 MG IV (15:22)
--- NOTE | 2025-04-17 15:48 | HMH.ITSTN ---
spoke to RN, per Dr. Hickman xray is to be done around 9pm or 10pm.
--- NOTE | 2025-04-17 16:22 | PC.NURSE ---
NG at 55cm to right nare. NG connected to drain bag at this time. patient c/o abd pain, treated per JAN. patient reports no pain at this time. MD notified of gastrograffin given, radiology also notified. call light within reach family at bedside
[2025-04-17 17:33] LABS: Microscopic, Urine URINE MICROSCOPIC (MICROSCOPIC)
--- NOTE | 2025-04-17 18:29 | PC.NURSE ---
1622: NG at 58cm to right nare. NG connected to drain bag at this time. patient c/o abd pain, treated per JAN. patient reports no pain at this time. MD notified of gastrograffin given, radiology also notified. call light within reach family at bedside
[2025-04-17 18:42] LABS: Appearance,Urine CLEAR (Clear); Bilirubin,Urine Negative (Negative); Blood, Urine Negative (Negative); Color,Urine YELLOW (Yellow); Glucose,Urine (UA) Negative (Negative); Ketones,Urine 1+ (Negative); Leukocyte Esterase,Urine Negative (Negative); Nitrate,Urine Negative (Negative); PH,Urine 5.5 (5.0-8.5); Protein,Urine Negative (Negative); Specific Gravity, Urine 1.015 (1.005-1.030); Urobilinogen,Urine 0.2 EU/dl (0.2)
--- NOTE | 2025-04-17 19:01 | PC.NURSE ---
patient c/o abd pain. attached NG tube to drainage bag and patient stated she felt relief. Hospitalist notified.
[2025-04-17 20:11] LABS: Bacteria,Urine Trace /lpf; Squamous Epithelial Cell,Urine Occasional #/hpf (0-5); WBC,Urine Occasional #/hpf (0-3)
--- NOTE | 2025-04-17 22:00 | XR_ITS ---
PROCEDURE INFORMATION: Exam: XR Complete Acute Abdomen Series Including Chest Exam date and time: 04/17/2025 9:56 PM Age: 80 years old Clinical indication: Abdominal pain; Additional info: Sbo vs ileus (modified gastrografin challenge) TECHNIQUE: Imaging protocol: Radiologic exam. Complete acute abdomen series, including 2 or more views of the abdomen and a single view chest. COMPARISON: CR XR KUB 04/17/2025 12:57 PM FINDINGS: Tubes, catheters and devices: Enteric tube tip in the gastric lumen. Lungs: Normal. No consolidation. Pleural spaces: Normal. No pleural effusions. No pneumothorax. Heart/Mediastinum: Normal. No cardiomegaly. Gastrointestinal tract: There is gaseous distension of the small bowel. There is contrast material in the distal small bowel, cecum and ascending colon. Intraperitoneal space: Normal. No free air. Bones/joints: Normal. No acute fracture. Soft tissues: Normal. IMPRESSION: Gastrografin contrast in the distal small bowel, cecum and ascending colon. Persistent gaseous distension of the small bowel, suspicious for ileus versus low-grade or intermittent obstruction.
[2025-04-18 04:00] VITALS: BP 104/53; PULSE 90; RESP 18; TEMP 37; O2SAT 94; BMI 18.2
--- NOTE | 2025-04-18 04:52 | PC.NURSE ---
Pt. is alert and orientated x 4. Pt. is on room air. Pt. was admitted with SBO. NG tube to right nare hooked up to drainage bag, dark green output noted in bag. NG at 58 cm. Pt tolerating NG well. Pt. denies pain . Pt. took a few ice chips tolerated well. Abd. tender and distended, no nausea or vomiting. IV fluids infusing. Personal items and call guillermo in reach.
--- NOTE | 2025-04-18 06:00 | XR_ITS ---
PROCEDURE INFORMATION: Exam: XR Complete Acute Abdomen Series Including Chest Exam date and time: 04/18/2025 5:28 AM Age: 80 years old Clinical indication: Abdominal pain; Additional info: Sbo vs ileus TECHNIQUE: Imaging protocol: Radiologic exam. Complete acute abdomen series, including 2 or more views of the abdomen and a single view chest. COMPARISON: CR XR ACUTE ABDOMEN SERIES 04/17/2025 9:56 PM FINDINGS: Tubes, catheters and devices: Multiple surgical clips are noted over the right upper quadrant. Enteric tube terminates within the stomach. Lungs: COPD changes of the chest. Pleural spaces: Normal. No pleural effusions. No pneumothorax. Heart/Mediastinum: Normal. No cardiomegaly. Gastrointestinal tract: Oral contrast is seen scattered throughout the large bowel. Central dilated loops of small bowel are again appreciated similar in comparison to 04/17/2025. Intraperitoneal space: Normal. No free air. Organs: Contrast is seen in the urinary bladder. Vasculature: Robust atherosclerotic disease of the aorta. Bones/joints: Diffuse degenerative change of the visualized osseous structures. Multiple vertebral compression deformities are noted. Posttraumatic change, chronic, of the left humerus/shoulder. Demineralized osseous structures. Soft tissues: Normal. IMPRESSION: 1. Enteric contrast seen scattered throughout the large bowel. 2. Stable prominent central small bowel. Likely ileus given transit of enteric contrast to the large bowel. Correlate clinically.
[2025-04-18 07:00] LABS: Basophils % 0.4 % (0.1-2.0); Eosinophils # 0.1 Kmm3 (0.0-0.4); Hematocrit 37.5 % (37.0-47.0); Hemoglobin 12.2 g/dL (12.2-16.2); Immature Granulocytes # 0.01 10^3uL; Immature Granulocytes % 0.1 %; Lymphocytes # 1.2 K/mm3 (0.7-4.5); Lymphocytes % 17.9 % (10-50); Mean Corpuscular HGB Conc 32.5 g/dL (31.8-35.4); Mean Corpuscular Volume 92.1 fl (81-99); Mean Platelet Volume 11.3 fl (7.4-10.4); Monocytes # 0.5 K/mm3 (0.1-1.0); Neutrophils # 4.9 K/mm3 (1.8-7.8); Neutrophils % 73.6 % (37.0-80.0); Nucleated Red Blood Cells # 0 10^3/uL; Nucleated Red Blood Cells % 0 %; Platelet Count 197 K/mm3 (142-424); Red Blood Count 4.07 M/mm3 (4.20-5.40); Red Cell Distribution Width 13.3 % (11.5-17.5); Red Cell Distribution Width-SD 45.5 fL; White Blood Count 6.7 K/mm3 (4.8-10.8)
--- OUTSIDE RECORDS SUMMARY | 2025-04-18 07:25 | XMS_ITS | Data Portability ---
Author Organization [facility] Address [address] [place] [address] Assessment Encounter Date Assessment Date Assessment LastModified by Organization Details LastModified Time 01/07/2023 01/07/2023 This patient did well with her kyphoplasty bilaterally of L1 and T11. Upon discharge she was completely pain-free. She is neurologically intact. We discharged her home and she was doing well. We will follow-up with her in our [place] office in 2 weeks. abux Not available [...] Kyphoplasty completed Beto Poole MD [address], [address], [facility] 01/07/2023 17:08:22 [...] Updated DateTime 3 165.1 cm 18.3 kg/m2 83851.1 6 g 74 /min 96 % 96 [...] SNOMED-CT Code Diagnosis ICD10 Code Diagnosis Note [id number] Beto Poole MD [place] [facility] [address] [place] [address],[facility] [address] [place] [address] 01/07/2023 12:54:26 01/07/2023 15:34:39 Osteoporotic fracture of vertebra [id number] M80.08XA Health Concerns Section Related Observation LastModified by Organization Detai ls LastModified Time None Recorded Concern Status LastModified by Organization Details LastModified Time None Recorded Advance Directives Directive None Recorded Payers Encounter Date Sequence Insurance Name Policy Number Policy Hubbard Covered Member ID Hubbard Member ID Guarantor Name 01/07/2023 1 [place] Nadira L Sowder [id number] Nadira L Sowder 01/07/2023 2 [place] [id number] Nadira L Sowder [id number] Nadira L Sowder OBGyn Episode No OBEpisode recorded.
[2025-04-18 07:32] LABS: Albumin Level 4.4 g/dl (3.5-5.0); Chloride 101 mmol/L (98-107); Sodium 137 mmol/L (136-145)
[2025-04-18 07:33] LABS: Potassium 4.3 mmoL/L (3.5-5.1)
[2025-04-18 07:35] LABS: Alanine Aminotransferase 15 U/L (12-78); Albumin/Globulin Ratio 1.6 (1.1-1.8); Alkaline Phosphatase 73 U/L (38-126); Anion Gap 19.3 mEq/L (5-15); Aspartate Amino Transferase 29 U/L (14-36); Bilirubin,Total 0.7 mg/dl (0.2-1.3); Blood Urea Nitrogen 32 mg/dl (7-17); Carbon Dioxide 21 mmol/L (22.0-30.0); Creatinine Clearance Estimated 31 mL/min (50-200); Estimated Glomerular Filt Rate 48 ml/min (>60); GFR (African American) 58 ML/MIN (>60); Globulin 2.7 g/dL (1.3-3.2); Total Protein,Serum 7.1 g/dl (6.3-8.2)
[2025-04-18 07:36] LABS: Calcium 7.9 mg/dl (8.4-10.2); Glucose 72 mg/dl (74-100); Magnesium 2.1 mg/dl (1.6-2.3)
[2025-04-18 08:00] VITALS: BP 124/59; PULSE 83; RESP 14; TEMP 36.8; O2SAT 96
[2025-04-18] MEDS: ENOXAPARIN 30MG/0.3ML SYRINGE 30 MG SUBCUT (08:29)
--- NOTE | 2025-04-18 08:53 | P.PN_ITS ---
Subjective Patient reports: no new complaints Narrative: No flatus or bowel movement since evaluation yesterday. She feels better when compared to the emergency room . Exam Data for Last 24 hours Vital signs and Labs for Last 24 Hours: Temp Pulse Resp BP Pulse Ox O2 Del Method 98.3 F 83 14 124/59 L 96 Room Air 04/18/25 08:00 04/18/25 08:00 04/18/25 08:00 04/18/25 08:00 04/18/25 08:00 04/18/25 08:00 Laboratory Results - last 24 hr 04/17/25 17:24: Urine Color Yellow, Urine Appearance Clear, Urine pH 5.5, Ur Specific [place] 1.015, Urine Protein Negative, Urine Glucose (UA) Negative, Urine Ketones 1+, Urine Blood Negative, Urine Nitrate Negative, Urine Bilirubin Negative, Urine Urobilinogen 0.2, Ur Leukocyte Esterase Negative, Urine RBC None, Urine WBC Occasional, Ur Squamous Epith Cells Occasional, Urine Bacteria Trace 04/18/25 06:36: WBC 6.7 D, RBC 4.07 L, Hgb 12.2, Hct 37.5, MCV 92.1, MCH 30.0, MCHC 32.5, RDW 13.3, Plt Count 197, MPV 11.3 H, Neut % (Auto) 73.6, Lymph % (Auto) 17.9, [place] % (Auto) 7.0, Eos % (Auto) 1.0, Baso % (Auto) 0.4, Neut # (Auto) 4.9, Lymph # (Auto) 1.2, [place] # (Auto) 0.5, Eos # (Auto) 0.1, Baso # (Auto) 0.0, Sodium 137, Potassium 4.3, Chloride 101, Carbon Dioxide 21 L, Anion Gap 19.3 H, BUN 32 H D, Creatinine 1.10 H D, Estimated Creat Clear 31, Estimated GFR 48 L, Est GFR ( Amer) 58 L D, Glucose 72 L, Calcium 7.9 L, Magnesium 2.1, Total Bilirubin 0.7, AST 29, ALT 15, Alkaline Phosphatase 73, Total Protein 7.1, Albumin 4.4, Globulin 2.7, Albumin/Globulin Ratio 1.6 I & O for Last 24 hours: Intake & Output 04/15/25 04/16/25 04/17/2504/25 11:59 11:59 11:59 11:59 Intake Total 858 / 858 Output Total 1550 / 1550 Balance -692 / -692 Weight 110 lb 8 oz 107 lb Radiology Reports for the Last 24 Hours: Flat/upright films reveal contrast within colon Constitutional Constitutional: no acute distress *Routine Respiratory Exam Respiratory: Absent respiratory distress *Routine Cardiovascular Exam Cardiovascular: Absent tachycardia *Routine Abdominal Exam Abdominal: Present soft Progress Note: A&P Assessment and plan (1) SBO (small bowel obstruction): Status: Acute Assessment and plan: The patient does not have a complete mechanical obstruction as evidenced by colonic contrast on morning films. Most likely, the patient has a partial or intermittent obstruction secondary to adhesions that is compounded by ileus/dysmotility. Continue overall management as per primary service Consider gastroenterology consultation (recently seen in outpatient setting)
--- NOTE | 2025-04-18 09:37 | PC.NURSE ---
Left ac iv infiltrated, left upperarm and forearm swollen. New iv 22 gauge placed right forearm
[2025-04-18 11:53] VITALS: BP 119/62; PULSE 90; RESP 15; TEMP 36.9; O2SAT 92
--- NOTE | 2025-04-18 12:13 | P.PN_ITS ---
<Statement entered by Manjeet Jordan MD - 04/23/25 17:41> Personally evaluated the patient and agree with the plan of care as outlined by the [employer] MANAGER. Subjective *Date: 04/18/25 *Time: 13:39 Interval history: Patient up to the chair this morning with family at bedside. Patient states she had a restful evening and pain was at a minimum, rating pain a 2 out of 10 primarily in her abdomen. Patient states that she feels better than when she came into the emergency room. Patient denies having a bowel movement or having flatus. Discussed with patient the idea of removing the NG tube today, patient would like to wait until at least this afternoon, to see if she has a bowel movement. Medical Exam Vital signs and Labs for Last 24 Hours: Vital Signs Temp Pulse Resp BP Pulse Ox O2 Del Method 04/18/25 11:53 98.4 F 90 15 119/62 92 L Room Air 04/18/25 11:08 Room Air 04/18/25 09:00 Room Air 04/18/25 08:30 Room Air 04/18/25 08:00 98.3 F 83 14 124/59 L 96 Room Air 04/18/25 06:24 Room Air 04/18/25 05:00 Room Air 04/18/25 04:00 98.6 F 90 18 104/53 L 94 L 04/18/25 03:00 Room Air 04/18/25 01:00 Room Air 04/17/25 23:46 98.4 F 92 H 21 107/59 L 93 L 04/17/25 23:00 Room Air 04/17/25 21:00 Room Air 04/17/25 20:00 92 L Room Air 04/17/25 20:00 98.6 F 100 H 14 97/53 L 92 L 04/17/25 18:38 Room Air 04/17/25 17:00 Room Air 04/17/25 16:00 97.5 F L 85 18 110/59 L 93 L Room Air 04/17/25 14:52 Room Air 04/17/25 13:00 Room Air Intake and Output 04/17/25 04/18/25 04/18/25 23:59 07:59 15:59 Intake Total 0 / 858 858 / 858 Output Total 350 / 1450 550 / 550 0 / 550 Balance -350 / -592 308 / 308 0 / 308 Intake: Intake, Oral Amount 0 / 0 Intake, Total IV Amount 858 / 858 Lactated Ringers 1000ML 1,000 858 / 858 ml @ 75 mls/hr IV .[id number] [facility] Rx#:[id number] Output: Output, Urine Amount 0 / 0 0 / 0 0 / 0 Output, Gastric Drainage Amount 350 / 1450 550 / 550 Right Nare 350 / 1450 550 / 550 Other: Number of Unmeasured Voids 1 0 1 Number of Bowel Movements 1 Weight 48.534 kg Patient Weight 04/18/25 23:59 Weight 48.534 kg Laboratory Results - last 24 hr 04/17/25 17:24: Urine Color Yellow, Urine Appearance Clear, Urine pH 5.5, Ur Specific [place] 1.015, Urine Protein Negative, Urine Glucose (UA) Negative, Urine Ketones 1+, Urine Blood Negative, Urine Nitrate Negative, Urine Bilirubin Negative, Urine Urobilinogen 0.2, Ur Leukocyte Esterase Negative, Urine RBC None, Urine WBC Occasional, Ur Squamous Epith Cells Occasional, Urine Bacteria Trace 04/18/25 06:36: WBC 6.7 D, RBC 4.07 L, Hgb 12.2, Hct 37.5, MCV 92.1, MCH 30.0, MCHC 32.5, RDW 13.3, Plt Count 197, MPV 11.3 H, Neut % (Auto) 73.6, Lymph % (Auto) 17.9, [place] % (Auto) 7.0, Eos % (Auto) 1.0, Baso % (Auto) 0.4, Neut # (Auto) 4.9, Lymph # (Auto) 1.2, [place] # (Auto) 0.5, Eos # (Auto) 0.1, Baso # (Auto) 0.0, Sodium 137, Potassium 4.3, Chloride 101, Carbon Dioxide 21 L, Anion Gap 19.3 H, BUN 32 H D, Creatinine 1.10 H D, Estimated Creat Clear 31, Estimated GFR 48 L, Est GFR ( Amer) 58 L D, Glucose 72 L, Calcium 7.9 L, Magnesium 2.1, Total Bilirubin 0.7, AST 29, ALT 15, Alkaline Phosphatase 73, Total Protein 7.1, Albumin 4.4, Globulin 2.7, Albumin/Globulin Ratio 1.6 I & O for Labs for Last 24 Hours: Intake & Output 04/15/25 04/16/25 04/17/25 04/18/25 23:59 23:59 23:59 23:59 Intake Total 0 / 858 858 / 858 Output Total 1000 / 1450 550 / 550 Balance -1000 / -592 308 / 308 Weight 50 kg 48.534 kg Constitutional: Present no acute distress Head: Present normocephalic and normal inspection Comment:: NG placed in right nare Respiratory: Present CTA bilaterally, normal respiratory effort and symmetric chest movement Cardiac: Present Regular Rate and Irregularly Regular Comment:: PVCs noted on EKG. GI: Present tenderness and hyperactive bowel sounds; Absent distention Rectal (female): Present deferred (female): Present deferred Extremities: Present normal inspection and full ROM Skin: Present intact; Absent erythema Neuro: Present Grossly Intact, alert, awake, oriented x 3 and moves all extremities Assessment and Plan *Assessment and plan (1) SBO (small bowel obstruction): Status: Acute Category: Medical Code(s): K56.609 - Unspecified intestinal obstruction, unspecified as to partial versus complete obstruction (2) DA (acute kidney injury): Status: Acute Category: Medical Code(s): N17.9 - Acute kidney failure, unspecified (3) Chronic constipation: Status: Acute Category: Medical Code(s): K59.09 - Other constipation Plan Nadira Helm is an 80-year-old female patient admitted to hospital medicine for a small bowel obstruction, vomiting, nausea, and abdominal pain on 04/17/2025. NG was placed upon admission, n.p.o. diet, medicine for pain control, and nausea. Discussed today with patient possible removal of NG tube this afternoon, based upon abdominal pain and ability to have a bowel movement. Patient states currently pain is a 2 out of 10 and being well-controlled with morphine 2 mg every 4 hours as needed. Patient denies nausea. #Small bowel obstruction #Epigastric pain ?Chest and abdomen x-ray ordered per general surgery. X-ray shows contrast scattered throughout the large bowel. ?Continue to monitor patient for worsening abdominal pain, passing flatus, or having a bowel movement. ?Will leave NG tube in place at this time and evaluate further this afternoon. Patient remains NPO. ?Discussed with general surgery the need for surgical intervention, no surgical intervention is advised at this time. ?White count remains stable at 6.7 today. ?Patient has normoactive bowel sounds in all 4 quadrants today. #Acute kidney injury ?Kidney function has improved today with the intervention of maintenance fluids overnight. ?LR is continuing at 75 mL an hour IV. ?Creatinine has improved from 1.4 yesterday to 1.1 today. #Chronic constipation ?Will give glycerin suppository to aid in bowel movement. Full code N.p.o. diet DVT prophylaxis- Lovenox 30 mg s.q. daily Ambulate as tolerated
[2025-04-18 15:59] VITALS: BP 123/68; PULSE 89; RESP 14; TEMP 36.6; O2SAT 95
--- NOTE | 2025-04-18 16:07 | PC.NURSE ---
ok to d/c ng tube per md
[2025-04-18] MEDS: LACTATED RINGERS 1000ML 1,000 ML 75 ML IV (16:16)
--- NOTE | 2025-04-18 16:17 | PC.NURSE ---
ng tube discontinued, patient tolerated well
[2025-04-18 20:00] VITALS: BP 122/66; PULSE 97; RESP 14; TEMP 36.3; O2SAT 93; O2SAT 98
[2025-04-19] VITALS: BP 120/66; PULSE 97; RESP 15; TEMP 36.4; O2SAT 93
[2025-04-19 04:00] VITALS: BP 118/59; PULSE 81; RESP 15; TEMP 36.7; O2SAT 93; BMI 18.9
--- NOTE | 2025-04-19 06:00 | XR_ITS ---
PROCEDURE INFORMATION: Exam: XR Complete Acute Abdomen Series Including Chest Exam date and time: 04/19/2025 5:49 AM Age: 80 years old Clinical indication: Abdominal pain; Additional info: Sbo vs ileus TECHNIQUE: Imaging protocol: Radiologic exam. Complete acute abdomen series, including 2 or more views of the abdomen and a single view chest. COMPARISON: CR XR ACUTE ABDOMEN SERIES 04/18/2025 5:28 AM FINDINGS: Lungs: Normal. No consolidation. Pleural spaces: Normal. No pleural effusions. No pneumothorax. Heart/Mediastinum: Normal. No cardiomegaly. Gastrointestinal tract: There mild gasseous distention of bowel loops. However, there is transit of enteric contrast into the distal large bowel loops. Intraperitoneal space: There are surgical clips in the right upper quadrant Bones/joints: Multilevel degenerative changes of the included spine. Status post kyphoplasty of lower thoracic/upper lumbar vertebrae. chronic-appearing deformity in the left humeral neck Soft tissues: Normal. IMPRESSION: There mild gasseous distention of bowel loops. However, there is transit of enteric contrast into the distal large bowel loops.
[2025-04-19] MEDS: LACTATED RINGERS 1000ML 1,000 ML 75 ML IV (06:06)
[2025-04-19 06:18] LABS: Basophils % 0.4 % (0.1-2.0); Eosinophils # 0.1 Kmm3 (0.0-0.4); Hematocrit 30.9 % (37.0-47.0); Immature Granulocytes # 0.02 10^3uL; Immature Granulocytes % 0.4 %; Lymphocytes # 1.1 K/mm3 (0.7-4.5); Mean Corpuscular HGB Conc 32.7 g/dL (31.8-35.4); Mean Corpuscular Hemoglobin 29.9 pg (27.0-31.2); Mean Corpuscular Volume 91.4 fl (81-99); Mean Platelet Volume 10.6 fl (7.4-10.4); Monocytes # 0.4 K/mm3 (0.1-1.0); Monocytes % 7.7 % (1.7-9.3); Neutrophils # 3.8 K/mm3 (1.8-7.8); Neutrophils % 69.5 % (37.0-80.0); Nucleated Red Blood Cells # 0 10^3/uL; Nucleated Red Blood Cells % 0 %; Platelet Count 152 K/mm3 (142-424); Red Blood Count 3.38 M/mm3 (4.20-5.40); Red Cell Distribution Width 13.2 % (11.5-17.5); White Blood Count 5.5 K/mm3 (4.8-10.8)
[2025-04-19 06:28] LABS: Hemoglobin 10.1 g/dL (12.2-16.2)
[2025-04-19 06:38] LABS: Albumin Level 3.3 g/dl (3.5-5.0); Chloride 105 mmol/L (98-107); Potassium 3.9 mmoL/L (3.5-5.1); Sodium 135 mmol/L (136-145)
[2025-04-19 06:41] LABS: Alanine Aminotransferase 10 U/L (12-78); Albumin/Globulin Ratio 1.3 (1.1-1.8); Alkaline Phosphatase 56 U/L (38-126); Anion Gap 10.9 mEq/L (5-15); Aspartate Amino Transferase 24 U/L (14-36); Bilirubin,Total 0.6 mg/dl (0.2-1.3); Blood Urea Nitrogen 22 mg/dl (7-17); Calcium 7.2 mg/dl (8.4-10.2); Carbon Dioxide 23 mmol/L (22.0-30.0); Creatinine Clearance Estimated 36 mL/min (50-200); Estimated Glomerular Filt Rate 69 ml/min (>60); GFR (African American) 84 ML/MIN (>60); Globulin 2.6 g/dL (1.3-3.2); Glucose 67 mg/dl (74-100); Magnesium 2.1 mg/dl (1.6-2.3); Total Protein,Serum 5.9 g/dl (6.3-8.2)
--- NOTE | 2025-04-19 07:08 | P.PN_ITS ---
Subjective Patient reports: feels better, flatus and bowel movement Exam Data for Last 24 hours Vital signs and Labs for Last 24 Hours: Temp Pulse Resp BP Pulse Ox O2 Del Method 98.0 F 81 15 118/59 L 93 L Room Air 04/19/25 04:00 04/19/25 04:00 04/19/25 04:00 04/19/25 04:00 04/19/25 04:00 04/19/25 07:00 Laboratory Results - last 24 hr 04/18/25 06:36: Sodium 137, Potassium 4.3, Chloride 101, Carbon Dioxide 21 L, Anion Gap 19.3 H, BUN 32 H D, Creatinine 1.10 H D, Estimated Creat Clear 31, Estimated GFR 48 L, Est GFR ( Amer) 58 L D, Glucose 72 L, Calcium 7.9 L, Magnesium 2.1, Total Bilirubin 0.7, AST 29, ALT 15, Alkaline Phosphatase 73, Total Protein 7.1, Albumin 4.4, Globulin 2.7, Albumin/Globulin Ratio 1.6 04/19/25 06:10: WBC 5.5, RBC 3.38 L, Hgb 10.1 L D, Hct 30.9 L, MCV 91.4, MCH 29.9, MCHC 32.7, RDW 13.2, Plt Count 152, MPV 10.6 H, Neut % (Auto) 69.5, Lymph % (Auto) 20.0, [place] % (Auto) 7.7, Eos % (Auto) 2.0, Baso % (Auto) 0.4, Neut # (Auto) 3.8, Lymph # (Auto) 1.1, [place] # (Auto) 0.4, Eos # (Auto) 0.1, Baso # (Auto) 0.0, Sodium 135 L, Potassium 3.9, Chloride 105, Carbon Dioxide 23, Anion Gap 10.9, BUN 22 H D, Creatinine 0.80 D, Estimated Creat Clear 36, Estimated GFR 69, Est GFR ( Amer) 84 D, Glucose 67 L, Calcium 7.2 L, Magnesium 2.1, Total Bilirubin 0.6, AST 24, ALT 10 L D, Alkaline Phosphatase 56, Total Protein 5.9 L, Albumin 3.3 L D, Globulin 2.6, Albumin/Globulin Ratio 1.3 I & O for Last 24 hours: Intake & Output 04/16/25 04/17/25 04/18/25 04/19/25 11:59 11:59 11:59 11:59 Intake Total 858 / 858 2647 / 2647 Output Total 1550 / 1550 0 / 0 Balance -692 / -692 2647 / 2647 Weight 110 lb 8 oz 107 lb 111 lb 2 oz Radiology Reports for the Last 24 Hours: Flat/upright films reveal contrast within colon Constitutional Constitutional: no acute distress *Routine Respiratory Exam Respiratory: Absent respiratory distress *Routine Cardiovascular Exam Cardiovascular: Absent tachycardia *Routine Abdominal Exam Abdominal: Present soft Progress Note: A&P Assessment and plan (1) SBO (small bowel obstruction): Status: Acute Assessment and plan: Radiographically and symptomatically resolving. Slowly advance diet (2) Chronic constipation: Status: Acute Assessment and plan: As per gastroenterology
[2025-04-19] MEDS: ENOXAPARIN 30MG/0.3ML SYRINGE 30 MG SUBCUT (07:50)
[2025-04-19 08:00] VITALS: BP 122/59; PULSE 82; RESP 19; TEMP 36.5; O2SAT 93
--- NOTE | 2025-04-19 10:30 | P.DS_ITS ---
<Statement entered by Manjeet Jordan MD - 04/23/25 17:39> Personally evaluated the patient and agree with the plan of care as outlined by the [employer]. General Admission date:: 04/17/25 Discharge date: 04/19/25 HPI HPI HPI: Patient is a 80-year-old female with a history of coronary artery disease, COPD, pulmonary hypertension, atrial fibrillation, sleep apnea, coronary stenting, and small bowel obstruction with surgical intervention in 2021. She has also had previous small bowel obstruction managed nonoperatively with bowel rest and decompression via NG tube later that year in 2021. She presented today with vomiting, abdominal pain, and tenderness. Her last bowel movement was yesterday. CT scan today in the emergency department revealed probable small bowel obstruction. Patient states she is passing flatus but does complain of tenderness to palpation. She currently rates her pain 6 out of 10. She reports vomiting green bile and water. She denies fevers, chills, chest pain, and shortness of breath. Lab work reveals no signs of infection with a white count of 10.7, slightly elevated BUN of 25 and creatinine at 1.4. Hospital Course Hospital Course Hospital Course: Ms. Levy is an 80-year-old female patient with a history of coronary artery disease, COPD, pulmonary hypertension, atrial fibrillation, sleep apnea, coronary stenting, and small bowel obstruction with surgical intervention in 2021. She has been admitted to the hospital setting for management of small bowel obstruction multiple times in the past. The emergency department physician consulted hospital medicine due to concerning findings of small bowel obstruction versus ileus on CT scan, hospital medicine agreed to admit for further evaluation and treatment of patient. During this admission she required an NG tube placement for decompression and bowel rest. Surgery consulted and recommended no surgical intervention at this time. NG to was removed yesterday and patient is tolerating regular diet without complications. Patient denies abdominal pain, nausea, vomiting, fever, and/or chills. Patient did have large bowel movement yesterday, has been passing flatus, and has normoactive bowel sounds. Abdomen is soft and nontender to palpation. Upon admission creatinine was slightly elevated above patient's baseline at 1.4, creatinine today is 0.80. Patient otherwise remained hemodynamically stable throughout her stay. Discussed in great detail with the patient recommendation of soft fiber diet, 8 glasses of water a day, MiraLAX and Citrucel every day, and avoidance of carbonation her her GI visit on April 04, 2025. #Small bowel obstruction versus ileus #Epigastric pain ?Chest and abdomen x-ray ordered per general surgery. X-ray shows contrast scattered throughout the large bowel. ? Monitored patient for worsening abdominal pain, passing flatus, or having a bowel movement. ?Discussed with general surgery the need for surgical intervention, no surgical intervention is advised at this time. ?White count remains stable at 6.7 today. ?Patient has normoactive bowel sounds in all 4 quadrants today. ?NG tube removed patient tolerating regular diet without issues. #Acute kidney injury ? Maintenance fluids of LR were given during hospital stay for hydration. ?Creatinine was 1.4 on admission, and is back to baseline at 0.8 today. #Chronic constipation ?Will give glycerin suppository to aid in bowel movement. ?Patient will follow-up with outpatient GI regarding concerns of recurrent issues. Total time spent on discharge: 34 minutes on chart review, counseling, documentation, and direct care with patient. Exam Data for Last 24 hours Vital signs and Labs for Last 24 Hours: Temp Pulse Resp BP Pulse Ox O2 Del Method 97.7 F 82 19 122/59 L 93 L Room Air 04/19/25 08:00 04/19/25 08:00 04/19/25 08:00 04/19/25 08:00 04/19/25 08:00 04/19/25 09:46 Laboratory Results - last 24 hr 04/19/25 06:10: WBC 5.5, RBC 3.38 L, Hgb 10.1 L D, Hct 30.9 L, MCV 91.4, MCH 29.9, MCHC 32.7, RDW 13.2, Plt Count 152, MPV 10.6 H, Neut % (Auto) 69.5, Lymph % (Auto) 20.0, Shackelford % (Auto) 7.7, Eos % (Auto) 2.0, Baso % (Auto) 0.4, Neut # (Auto) 3.8, Lymph # (Auto) 1.1, Shackelford # (Auto) 0.4, Eos # (Auto) 0.1, Baso # (Auto) 0.0, Sodium 135 L, Potassium 3.9, Chloride 105, Carbon Dioxide 23, Anion Gap 10.9, BUN 22 H D, Creatinine 0.80 D, Estimated Creat Clear 36, Estimated GFR 69, Est GFR ( Amer) 84 D, Glucose 67 L, Calcium 7.2 L, Magnesium 2.1, Total Bilirubin 0.6, AST 24, ALT 10 L D, Alkaline Phosphatase 56, Total Protein 5.9 L, Albumin 3.3 L D, Globulin 2.6, Albumin/Globulin Ratio 1.3 I & O for Last 24 hours: Intake & Output 04/16/25 04/17/25 04/18/25 04/19/25 23:59 23:59 23:59 23:59 Intake Total 0 / 858 2905 / 3505 1140 / 1140 Output Total 1000 / 1450 550 / 550 0 / 0 Balance -1000 / -592 2355 / 2955 1140 / 1140 Weight 50 kg 48.534 kg 50.405 kg Constitutional Constitutional: no acute distress *Routine HEENT Exam Head: Present normocephalic Eye: Present EOMI *Routine Neck Exam Neck: Present full ROM; Absent JVD *Routine Respiratory Exam Respiratory: Present CTA bilaterally and symmetric chest movement *Routine Cardiovascular Exam Cardiovascular: Present RRR *Routine Abdominal Exam Abdominal: Present soft and normoactive bowel sounds; Absent tenderness *Routine Extremities Exam Extremities: Absent edema *Routine Skin Exam Skin: Present intact and dry *Routine Neurological Exam Neurological: Present alert and oriented X3 Routine Psychiatric Exam Psychiatric: Present normal affect and cooperative Results Data Completed and Pending Labs on day of discharge: Labs from last 24 hours 04/19/25 06:10 WBC 5.5 RBC 3.38 L Hgb 10.1 L D Hct 30.9 L MCV 91.4 MCH 29.9 MCHC 32.7 RDW 13.2 Plt Count 152 MPV 10.6 H Neut % (Auto) 69.5 Lymph % (Auto) 20.0 Shackelford % (Auto) 7.7 Eos % (Auto) 2.0 Baso % (Auto) 0.4 Neut # (Auto) 3.8 Lymph # (Auto) 1.1 Shackelford # (Auto) 0.4 Eos # (Auto) 0.1 Baso # (Auto) 0.0 Sodium 135 L Potassium 3.9 Chloride 105 Carbon Dioxide 23 Anion Gap 10.9 BUN 22 H D Creatinine 0.80 D Estimated Creat Clear 36 Estimated GFR 69 Est GFR ( Amer) 84 D Glucose 67 L Calcium 7.2 L Magnesium 2.1 Total Bilirubin 0.6 AST 24 ALT 10 L D Alkaline Phosphatase 56 Total Protein 5.9 L Albumin 3.3 L D Globulin 2.6 Albumin/Globulin Ratio 1.3 DS: Diagnosis Discharge Diagnosis (1) SBO (small bowel obstruction): Status: Acute Code(s): K56.609 - Unspecified intestinal obstruction, unspecified as to partial versus complete obstruction (2) Chronic constipation: Status: Acute Code(s): K59.09 - Other constipation Meds Home Medications and Allergies Home Medications ?Medication ?Instructions ?Recorded ?Confirmed ?Type spironolactone 25 mg tablet 25 mg PO BID 02/15/2202/06 History pantoprazole 40 mg tablet,delayed 40 mg PO DAILY 10/2304/17/25 History release denosumab 60 mg/mL subcutaneous 60 mg SQ [id number] 03/1604/17/25 History syringe (Prolia) ipratropium 0.5 mg-albuterol 3 mg 3 ml inhalation Q8H 3 months #540 04/04/25 04/17/25 Rx (2.5 mg base)/3 mL nebulization mL soln metoprolol succinate 25 mg 25 mg PO DAILY 04/04/2502/06 History tablet,extended release 24 hr polyethylene glycol 3350 17 17 g PO DAILYP PRN Constip ation 04/04/25 04/17/25 History gram/dose oral powder (Miralax) aspirin 81 mg tablet 81 mg PO DAILY 04/17/2502/06 History docusate sodium 50 mg tablet 50 mg PO DAILY Constipati on 04/17/25 04/17/25 History metoclopramide HCl 5 mg tablet 5 mg PO BID 04/17/25 History ondansetron 4 mg disintegrating 4 mg PO Q8HP PRN Nause a And 04/17/25 04/17/25 History tablet Vomiting rosuvastatin 20 mg tablet 20 mg PO DAILY 04/17/2502/06 History New Prescriptions to Start Prescriptions: Allergies Allergy/AdvReac Type Severity Reaction Status Date / Time atorvastatin AdvReac Mild myalgias Verified 04/04/25 11:49 Discharge Plan Disposition Patient Disposition: Home, Self-Care Condition: Fair Discharge Order Discharge Orders: Discharge Order (Routine); Ordered 04/19/25 Ordered By: Vane Parada Follow up Plan Follow up with: Lizette Porter APRN [Nurse Practitioner, Gastroenterology] - 05/02/25 12:00 pm Referral Note: 2 weeks Wally Martinez MD [Primary Care Provider, Internal Medicine] - 04/25/25 4:15 pm Referral Note: 1 week Prescriptions/Medication Reconciliation: Continued metoprolol succinate 25 mg tablet extended release 24 hr 25 mg PO DAILY Patient Comments: TAKE 1 TABLET BY MOUTH ONCE DAILY FOR 90 DAYS ipratropium-albuterol 0.5 mg-3 mg(2.5 mg base)/3 mL solution for nebulization 3 ml inhalation Q8H 90 Days Qty: 540 3RF Prolia 60 mg/mL syringe 60 mg SQ [id number] polyethylene glycol 3350 [Miralax] 17 gram/dose powder 17 g PO DAILYP PRN (Reason: Constipation) metoclopramide HCl 5 mg tablet 5 mg PO BID ondansetron 4 mg tablet,disintegrating 4 mg PO Q8HP PRN (Reason: Nausea And Vomiting) rosuvastatin 20 mg tablet 20 mg PO DAILY docusate sodium 50 mg Tablet 50 mg PO DAILY aspirin 81 mg Tablet 81 mg PO DAILY spironolactone 25 MG tablet 25 mg PO BID pantoprazole 40 mg tablet,delayed release (DR/EC) 40 mg PO DAILY Patient Comments: TAKE 1 TABLET BY MOUTH EVERY DAY FOR 30 DAYS Problem Reconciliation Problems Reviewed?: Yes Patient Discharge Instructions ACTIVITY: Continue current activity DIET: continue same diet Patient Instructions: DI for Small Bowel Obstruction, Acute Kidney Injury Print Language: Polish Providers Primary Care Provider: Wally Martinez Admit Provider: Manjeet Jordan Attending Provider: Manjeet Jordan
--- NOTE | 2025-04-19 11:32 | DIET.NUTRFU ---
RD reviewed high fiber diet with good hydration with patient and family. Provided handout with recommended amount of 25-35gm/day with 8 cups of water/day, also provided fiber content in each food item so she had prioritize food. Family indicated she does not drink enough water, drinks a good amount of coffee and does not want decaff. Will try to increase water intake. Provided contact information for future dietary questions or concerns
[2025-04-19 12:00] VITALS: BP 103/65; PULSE 84; RESP 18; TEMP 36.6; O2SAT 91
--- NOTE | 2025-04-20 10:36 | SW/DCPLANNER ---
Spoke with patient on the phone. Patient stated that she is doing okay. Patient stated that she is aware of her upcoming appointments. Patient stated that she was not prescribed any new medicine. Patient stated that she has no questions or concerns at this time. Liliam Lorenzo
== END 2025-04-19 13:21 | disposition home or self-care (01) ==
LOC: ER 08:33 → 2ND 09:10
PROVIDERS: Emergency Medicine; Admitting Provider Student in an Organized Health Care Education/Training Program; Emergency Provider Emergency Medicine; PCP Internal Medicine Adolescent Medicine; Visit Provider Student in an Organized Health Care Education/Training Program
DX: K56.609 Unspecified intestinal obstruction, unspecified as to partial versus complete obstruction (principal); I50.30 Unspecified diastolic (congestive) heart failure; N17.9 Acute kidney failure, unspecified; I48.0 Paroxysmal atrial fibrillation; I25.10 Atherosclerotic heart disease of native coronary artery without angina pectoris; J44.9 Chronic obstructive pulmonary disease, unspecified; I11.0 Hypertensive heart disease with heart failure; K59.09 Other constipation; E78.5 Hyperlipidemia, unspecified; I27.20 Pulmonary hypertension, unspecified; G47.33 Obstructive sleep apnea (adult) (pediatric); Z87.891 Personal history of nicotine dependence; Z95.5 Presence of coronary angioplasty implant and graft; Z79.82 Long term (current) use of aspirin; Z79.899 Other long term (current) drug therapy
CPT/HCPCS: 36415; 74018; 74021; 74177; 80053; 81001; 83605; 83690; 83735; 85025; 85610; 86803; 87389; 93005; J1650; J2270; J2405; J7120; Q9963; Q9967

== ENCOUNTER 2025-05-07 09:10 | Outpatient (CLI) | payer MEDICARE, SELFPAY ==
--- OUTSIDE RECORDS SUMMARY | 2025-05-07 09:25 | XMS_ITS | Data Portability ---
Author Organization [facility], [facility] Address [address] [place] [address] Assessment Encounter Date Assessment Date Assessment LastModified by Organization Details LastModified Time 01/07/2023 01/07/2023 This patient did well with her kyphoplasty bilaterally of L1 and T11. Upon discharge she was completely pain-free. She is neurologically intact. We discharged her home and she was doing well. We will follow-up with her in our [place] office in 2 weeks. abux Not available [...] Organization Details Recorded Time Kyphoplasty completed Beto Pooel MD [address], [address], [facility] 01/07/2023 17:08:22 [...] Updated DateTime 3 165.1 cm 18.3 kg/m2 53841.1 6 g 74 /min 96 % 96 [...] SNOMED-CT Code Diagnosis ICD10 Code Diagnosis Note 06018 Beto Poole MD [facility] [address] [facility] [address] [place] [address] 01/07/2023 12:54:26 01/07/2023 15:34:39 Osteoporotic fracture of vertebra [id number] M80.08XA Health Concerns Section Related Observation LastModified by Organization Detai ls LastModified Time None Recorded Concern Status LastModified by Organization Details LastModified Time None Recorded Advance Directives Directive None Recorded Payers Insurance Date Sequence Insurance Name Policy Number Policy Hubbard Covered Member ID Hubbard Member ID Guarantor Name 11/02/2023 1 [place] Nadira L Sowder [id number] Nadira L Sowder 11/02/2023 2 [place] [id number] Nadira L Sowder [id number] Nadira L Sowder 10/04/2024 1 [place]MEDICARE REPLACEMENT HMO) [id number] Nadira L Sowder [id number] Nadira L Sowder 03/20/2025 1 [employer] (MEDICARE REPLACEMENT/A DVANTAGE - PPO) Nadira L Sowder [id number] Nadira L Sowder OBGyn Episode No OBEpisode recorded.
--- OUTSIDE RECORDS SUMMARY | 2025-05-07 09:25 | XMS_ITS | Clinical Summary ---
Author Organization [facility] Address [address] [place] [address] Care Team Providers Care Astronomy Instructor Name Role Phone Wally Martinez MD Primary Care Provider [phone] Social History Tobacco Use Types Packs/Day Years Used Date Smoking Tobacco: Never Assessed Comments Unknown Sex and Gender Information Value Date Recorded Sex Assigned at Not on file Legal Sex Female 6:08 PM EDT Gender Identity Not on file Sexual Orientation Not on file Plan of Treatment Not on file Insurance MEDICARE Care Teams Astronomy Instructor Relationship Specialty Start Date End Date Wally Martinez MD [address] [place] [address] [facility] [place] [address] PCP - General 03/28/21
--- NOTE | 2025-05-07 09:30 | FL_ITS ---
FINAL REPORT CLINICAL HISTORY: SBO 0.42 fl 1085.38 dap FINDINGS: SMALL BOWEL FOLLOW-THROUGH HISTORY: Acute abdominal pain. Recent history of small bowel obstruction. Fluoroscopy Time: 42 seconds Dose Area Product (DAP): 1085.38 Gy/m2. Number of Images: 13 images. PROCEDURE: The patient ingested barium. Spot and overhead films were obtained. FINDINGS: The director cloud transformation film is unremarkable. The transit time to the colon is normal. The mucosal fold pattern is normal. Spot images of the terminal ileum are unremarkable. IMPRESSION: Normal small bowel follow-through. Reviewed, Interpreted and Dictated by Bob Griffin MD Transcribed by EVELYN Newsome Authenticated and [facility]
[2025-05-07] MEDS: BARIUM SULFATE(LIQUID E-Z-PAQUE);355ML BOTTLE 355 ML PO (09:55)
[2025-05-07] MEDS: DIATRIZOATE MEG 66% & DIATRIZOATE NA 10% 30ML UDC 30 ML PO (09:55)
== END 2025-05-07 23:59 | disposition home or self-care (01) ==
LOC: RAD 09:10
PROVIDERS: PCP Internal Medicine Adolescent Medicine; Visit Provider Nurse Practitioner Family
DX: K56.609 Unspecified intestinal obstruction, unspecified as to partial versus complete obstruction (principal); R10.9 Unspecified abdominal pain
CPT/HCPCS: 74250; Q9963

== ENCOUNTER 2025-06-11 09:06 | Day surgery (SDC) | payer MEDICARE, SELFPAY ==
[2025-06-07 10:23] VITALS: BMI 18.8
--- NOTE | 2025-06-11 07:22 | EXP.HP ---
History of Present Illness *Admission Date: 06/11/25 *History of present illness: Mrs. Helm is an 80-year-old female who is here for diagnostic EGD secondary to epigastric pain/reflux with early satiety, loss of appetite and weight loss. The examination is deemed medically necessary for diagnostic EGD. The patient has been seen, interviewed and examined prior to the procedure by both myself and the anesthesia provider. [facility] Disclaimer: The information contained in this section may have been updated after the patient was seen, as this information can be updated by other users. Medical History SBO (small bowel obstruction) DA (acute kidney injury) LUQ pain RUQ pain Acute right ankle pain Acute pain of left knee Compression fracture Lumbar facet arthropathy Degenerative disc disease, lumbar PAF (paroxysmal atrial fibrillation) Palpitations Hypokalemia Small bowel obstruction Epigastric pain Bloating Chest pain Lung nodule Smoking greater than 30 pack years Dyspnea on exertion Screening for lung cancer History of COPD Stopped smoking with greater than 30 pack year history Shortness of breath Pneumonia History of COVID-19 History of gastroesophageal reflux (GERD) History of chest pain Small intestine obstruction SOB (shortness of breath) on exertion Fatigue KM (obstructive sleep apnea) COPD (chronic obstructive pulmonary disease) Surgical History History of arthroscopy of shoulder History of hysterectomy History of colonoscopy History of colon resection Family History Other Coronary artery disease Family history of GERD Family history of cancer Family history of diabetes mellitus type II Family history of hyperlipidemia Family history of hypertension Family history of myocardial infarction Social History Smoking Status: Former smoker tobacco type: cigarettes packs per day: 1 second hand exposure: No alcohol intake: never counseling provided: none substance use type: denies use current occupational status: other Travel in the last 8 weeks?: None household members: none housing: house current occupational exposures/hazards: No caffeine: Yes Have you lived/traveled outside US in past 30 days?: No Contact w/someone who lives/traveled outside US past 30 days?: No Exposure to someone with infectious disease in past 14 days?: No Do you have a fever (greater than 100.4 F or 38 C)?: No Have you tested positive for COVID-19?: No Exposed to someone with COVID-19 in past 14 days?: No Do you have a sore throat?: No Do you have a cough?: No Do you have any weakness?: No Do you have any diarrhea?: No Are you experiencing any unusual bleeding?: No Do you have any muscle aches/pain?: No Do you have any abdominal pain?: No Are you experiencing loss of taste or smell?: No Other Medical History Have you received the Flu Vaccine for this season: No Have you received the Pneumonia Vaccine: Yes Review of Systems Review of Systems Review of systems (narrative): Negative *Cardiovascular Comments: Negative *Gastrointestinal Comments: Negative *Genitourinary Comments: Negative *Musculoskeletal Comments: Negative *Neurologic Comments: Negative Meds Home Medications and Allergies Home Medications ?Medication ?Instructions ?Recorded ?Confirmed ?Type spironolactone 25 mg tablet 25 mg PO BID 02/15/22 06/11/25 History pantoprazole 40 mg tablet,delayed 40 mg PO DAILY 10/23/22 06/11/25 History release denosumab 60 mg/mL subcutaneous 60 mg SQ [id number] 04/04/25 06/11/25 History syringe (Prolia) ipratropium 0.5 mg-albuterol 3 mg 3 ml inhalation Q8H 3 months #540 04/04/25 06/11/25 Rx (2.5 mg base)/3 mL nebulization mL soln metoprolol succinate 25 mg 25 mg PO DAILY 04/04/25 06/11/25 History tablet,extended release 24 hr polyethylene glycol 3350 17 17 g PO DAILYP PRN Constipation 04/04/25 06/11/25 History gram/dose oral powder (Miralax) aspirin 81 mg tablet 81 mg PO DAILY 04/17/25 06/11/25 History docusate sodium 50 mg tablet 50 mg PO DAILY Constipation 04/17/25 06/11/25 History rosuvastatin 20 mg tablet 20 mg PO DAILY 04/17/25 06/11/25 History methylcellulose (laxative) 500 mg 500 mg PO DAILY 05/02/25 06/11/25 History tablet (Citrucel) New Prescriptions to Start Prescriptions: Allergies Allergy/AdvReac Type Severity Reaction Status Date / Time atorvastatin AdvReac Mild myalgias Verified 06/11/25 09:21 Exam *Routine HEENT Exam Head: Present normocephalic Eye: Present EOMI and PERRL ENT: Present mucous membranes moist *Routine Neck Exam Neck: Present supple *Routine Respiratory Exam Respiratory: Present CTA bilaterally *Routine Cardiovascular Exam Cardiovascular: Present RRR *Routine Abdominal Exam Abdominal: Present soft and normoactive bowel sounds; Absent tenderness *Routine Rectal Exam Rectal:: deferred *Routine Genitalia Exam Genitalia:: deferred *Routine Extremities Exam Extremities: Absent cyanosis, clubbing or edema *Routine Skin Exam Skin: Present warm; Absent rash *Routine Neurological Exam Neurological: Present alert and oriented X3 Assessment and Plan *Assessment and plan (1) Epigastric pain: Status: Acute Category: Medical Code(s): R10.13 - Epigastric pain (2) Early satiety: Status: Acute Category: Medical Code(s): R68.81 - Early satiety (3) Weight loss: Status: Acute Category: Medical Code(s): R63.4 - Abnormal weight loss (4) Loss of appetite: Status: Acute Category: Medical Code(s): R63.0 - Anorexia (5) Bloating: Status: Acute Category: Medical Code(s): R14.0 - Abdominal distension (gaseous) Plan A/P: 1. Epigastric abdominal pain with loss of appetite, weight loss, bloating and early satiety is the preprocedural diagnosis. The patient will be anesthetized/sedated using MAC sedation. The patient has been seen and examined. Cardiac and lung assessment prior to the examination is stable. Proceed with planned diagnostic EGD.
[2025-06-11 09:29] VITALS: BP 113/80; PULSE 83; RESP 18; TEMP 37.2; O2SAT 95
[2025-06-11] MEDS: LACTATED RINGERS 1000ML 1,000 ML 50 ML IV (09:45)
--- NOTE | 2025-06-11 09:51 | EXP.ANES.CKL ---
[facility] Disclaimer: The information contained in this section may have been updated after the patient was seen, as this information can be updated by other users. Medical History SBO (small bowel obstruction) DA (acute kidney injury) LUQ pain RUQ pain Acute right ankle pain Acute pain of left knee Compression fracture Lumbar facet arthropathy Degenerative disc disease, lumbar PAF (paroxysmal atrial fibrillation) Palpitations Hypokalemia Small bowel obstruction Epigastric pain Bloating Chest pain Lung nodule Smoking greater than 30 pack years Dyspnea on exertion Screening for lung cancer History of COPD Stopped smoking with greater than 30 pack year history Shortness of breath Pneumonia History of COVID-19 History of gastroesophageal reflux (GERD) History of chest pain Small intestine obstruction SOB (shortness of breath) on exertion Fatigue KM (obstructive sleep apnea) COPD (chronic obstructive pulmonary disease) Surgical History History of arthroscopy of shoulder History of hysterectomy History of colonoscopy History of colon resection Family History Other Coronary artery disease Family history of GERD Family history of cancer Family history of diabetes mellitus type II Family history of hyperlipidemia Family history of hypertension Family history of myocardial infarction Social History Smoking Status: Former smoker tobacco type: cigarettes packs per day: 1 second hand exposure: No alcohol intake: never counseling provided: none substance use type: denies use current occupational status: other Travel in the last 8 weeks?: None household members: none housing: house current occupational exposures/hazards: No caffeine: Yes Have you lived/traveled outside US in past 30 days?: No Contact w/someone who lives/traveled outside US past 30 days?: No Exposure to someone with infectious disease in past 14 days?: No Do you have a fever (greater than 100.4 F or 38 C)?: No Have you tested positive for COVID-19?: No Exposed to someone with COVID-19 in past 14 days?: No Do you have a sore throat?: No Do you have a cough?: No Do you have any weakness?: No Do you have any diarrhea?: No Are you experiencing any unusual bleeding?: No Do you have any muscle aches/pain?: No Do you have any abdominal pain?: No Are you experiencing loss of taste or smell?: No [facility] Anesthesia Checklist Patient Identification Patient Identification: Verbal (Name & ) Structural Data Admitted From: Home Planned Operative Procedure/s: egd Consent for Planned Operative Procedure(s) Verified: Yes Additional verifications Anesthesia Reactions: No Airway Assessment Mallampati Score:: Class II C-Spine Mobility Assessed: Yes TMJ Mobility Assessed: Yes Dentition: Edentulous Neurological Assessment Level of Consciousness: Awake, Alert and Appropriate Anesthesia Plan Anesthesia Risk discussed: Yes Anesthesia Plan: Verified ASA Class: II Anesthesia Type: MAC
--- NOTE | 2025-06-11 10:09 | P.PCN_ITS ---
[facility] Procedure Note Date: 06/11/25 Time: 10:27 Procedure Note:: Upper Endoscopy Procedure Report: Esophagogastroduodenoscopy with cold biopsies Endoscopost: Thad Torres II, MD Referring Physician: Wally Martinez M.D. Date of Procedure: June 11, 2025 Equipment: Olympus [id number]-1100 standard upper endoscope Sedation: MAC sedation Indications: Mrs. Helm is an 80-year-old female who is here for diagnostic upper endoscopy because of her epigastric and right upper quadrant abdominal vijay n and dyspepsia. She has had partial small bowel obstructions and did have lysis of adhesions by Dr. Angel Hickman M.D. She does have chronic constipation. The patient does report bloating and early satiety. She has lost about 30 pounds over the last year. The patient does take MiraLAX or ClearLax but not daily. Her brother was diagnosed with colon cancer around the age of 60. The patient does have a personal history of adenomatous colon polyps and had 7 polyps removed in 2017. She does have a gurgling sound with rumbling when she takes a deep breath. The patient was admitted for another small bowel obstruction in early April and was seen by general surgery. She did have an upper GI with small bowel follow-through on May 07, 2025 which was normal. Procedure: Prior to the procedure, a history and physical exam was performed, and patient's medications and allergies were reviewed. The risks, benefits and alternatives of the sedation and procedure were discussed with the patient. All questions were answered and informed consent was obtained. The patient was brought to the procedure room. Patient identification and proposed procedure were verified by the physician and the nurse. The patient was placed in a left lateral decubitus position and the scope was passed under direct vision. Throughout the procedure, the patient's blood pressure, pulse, and oxygen saturations were monitored continuously. The upper GI endoscopy was accomplished without difficulty. The patient tolerated the procedure well. Findings: The scope was passed directly into the upper esophagus and advanced to the 3rd and 4th portion of the duodenum. A cold biopsy was taken from the third portion of duodenum for the disaccharidase assay. The post bulbar duodenum and duodenal bulb were normal with normal mucosa and conniventes. The scope was withdrawn through a normal duodenal bulb and pylorus into the stomach. There was some mild linear reactive gastropathy of the antrum. Cold biopsies were taken from the antrum. The body and fundus of the stomach were grossly normal. Upon retroflexion there was no hiatal hernia. The scope was then withdrawn into the esophagus. There was no evidence of reflux esophagitis or Chua's. There was a larger circumferential inlet patch in the proximal esophagus and this was biopsied. The remainder of the esophageal mucosa was normal. Impression: 1. Large proximal esophageal inlet patch 2. Mild linear antral gastropathy Plan: I will follow-up the biopsies. The patient does have some functional abdominal pain and we will discuss treatment options.
[2025-06-11 10:29] VITALS: BP 86/55; PULSE 80; RESP 16; TEMP 36.3; O2SAT 97
[2025-06-11 10:39] VITALS: BP 88/55; PULSE 66; RESP 16; O2SAT 97
[2025-06-11 10:49] VITALS: BP 112/77; PULSE 108; RESP 16; O2SAT 96
[2025-06-11 10:59] VITALS: BP 114/74; PULSE 84; RESP 16; TEMP 36.3; O2SAT 96
[2025-06-14 14:12] LABS: Interpretation Notes (.); Lactase 73.38 (>/= 14.0); Maltase 304.72 (>/= 110.0); Palatinase 22.65 (>/= 8.5); Reference Notes (.); Sucrase 91.89 (>/= 25.0)
== END 2025-06-11 11:17 | disposition home or self-care (01) ==
PROVIDERS: PCP Internal Medicine Adolescent Medicine; Visit Provider Internal Medicine Gastroenterology
PROC: 0DJ08ZZ Inspection of Upper Intestinal Tract, Via Natural or Artificial Opening Endoscopic (ICD-10-PCS; CPT 43239; principal; 2025-06-11 10:30)
DX: K29.50 Unspecified chronic gastritis without bleeding (principal); J44.9 Chronic obstructive pulmonary disease, unspecified; Z87.891 Personal history of nicotine dependence; Z88.8 Allergy status to other drugs, medicaments and biological substances; Z79.899 Other long term (current) drug therapy
CPT/HCPCS: 43239; 82657; J2003; J2704; J7120

== ENCOUNTER 2025-08-20 15:02 | Outpatient (CLI) | payer MEDICARE, SELFPAY ==
--- NOTE | 2025-08-20 15:00 | CA_ITS ---
APPROVED REPORT EXAM: Comprehensive 2D, Doppler, and color-flow Echocardiogram Director Of Loss Prevention: Fabi Yancey CRT Ht: 5 ft 4 in Wt: 108lbs BSA: 1.51 BP: 125/62 mmHg Indications: Shortness of Breath, Atrial Fibrillation, Palpitations, CAD, Hyperlipidemia, Hypertension/HDD, Pre-Op Colonoscopy, myocardial bridge 2D Dimensions IVSd 1.72 cm F: 0.6-1.0 LA Volume 50.30 mL PWd 0.88 cm F: 0.6 - 1.0 LA Volume Index 33.31 mL/m2 (M/F) 16-34 LVDd 4.10 cm F: 3.9 - 5.3 M-Mode Dimensions LA Diam 4.12 cm (1.9-4.0) LV Diastology E Decel Time 270 (160-240 msec) E/A Ratio 0.6 MED A' 11.00 cm/s LAT A' 10.30 cm/s Aortic Valve AI PHT 779.00 ms AO Peak GR. 5.40 mmHg Mitral Valve MV E Max Patricio. 49.0 (40-130 cm/s) MV A Velocity 79.0 (40-130 cm/s) E/A Ratio 0.62 MV PHT 79.0 ms Tricuspid Valve TR P. Velocity 274.00 cm/s RAP Estimate 10.00 mmHg RVSP 40.10 mmHg Left Ventricle The left ventricle is normal size. Left ventricular systolic function is normal. The left ventricular ejection fraction is within the normal range. Proximal septal thickening is present. There is normal LV segmental wall motion. The left ventricular diastolic function is normal. LVEF is 55%. Right Ventricle The right ventricle is moderately dilated. The right ventricular systolic function is normal. Atria The left atrium is severely dilated. The right atrium is severely dilated. There is no color Doppler evidence of interatrial shunt. Aortic Valve The aortic valve is mildly thickened. There is no hemodynamically significant aortic valvular stenosis. Mild aortic regurgitation is present. Mitral Valve The mitral valve is normal in structure. No evidence of mitral valve stenosis. Mild mitral regurgitation is present. Tricuspid Valve The tricuspid valve leaflets are thin and pliable. Moderate tricuspid regurgitation. RVSP is 30-35 mmHg. Pulmonic Valve The pulmonary valve is grossly normal in structure. Mild pulmonic valve regurgitation is present. Great Vessels The aortic root is normal in size. IVC is normal in size and collapses >50% with inspiration. Pericardium There is no pericardial effusion. Other Information Study Quality: Fair Conclusion Normal biventricular systolic function. Moderate RV dilation. Biatrial dilation. Moderate TR. Mild AI, mild MR, mild PI. Electronically signed by : Birdie Kearney MD 08/20/2025 22:34:50
--- OUTSIDE RECORDS SUMMARY | 2025-08-20 15:05 | XMS_ITS | Clinical Summary ---
Author Organization [facility] Address [address] [place] [address] Care Team Providers Care Frit Maker Name Role Phone Unavailable Primary Care Provider Unavailabl e Social History Tobacco Use Types Packs/Day Years Used Date Smoking Tobacco: Never Assessed Abuse Screen Answer Date Recorded Unsafe at Home or Work/School Not on file Feels Threatened by Someone? Not on file 07/2023 Does Anyone Keep You from Co ntacting Others or Doint Things Outside the Home? Not on file 08/23/2023 Physical Sign of Abuse Present Not on file 1 Housing Stability Answer Date Recorded Current Living Arrangements Not on file 07/2023 Potentially Unsafe Housing Conditions Not on neeta e 08/23/2023 Family and Community Support Answer Jose De Jesus e Recorded Help with Day-to-Day Activities Not on file 08/23/2023 Lonely or Isolated Not on file 08/23/2023 Employment Answer Date Recorded Do you want help finding or keeping work or a donte b? Not on file 08/23/2023 Disabilities Answer Date Recorded Concentrating, Remembering, or Making Decisions Difficulty Not on file 08/23/2023 Doing Errands Independently Difficulty Not on fi le 08/23/2023 Education Answer Date Recorded Help with school or training? Not on file Preferred Language Not on file 08/23/2023 Comments Unknown Sex and Gender Information Value Date Recorded Sex Assigned at Not on file Legal Sex Female 12:28 PM EDT Gender Identity Not on file Sexual Orientation Not on file Last Filed Vital Signs Vital Sign Reading Time Taken Comments Blood Pressure 144/82 01/26/2013 8:04 AM EDT Pulse 78 01/26/2013 8:04 AM EDT Temperature 36.4 C (97.6 F) 01/26/2013 8:04 AM EDT Respiratory Rate 18 01/26/2013 8:04 AM EDT Oxygen Saturation 98% 01/26/2013 8:04 AM EDT Inhaled Oxygen Concentration - - Weight 62.1 kg (136 lb 15.9 oz) 01/26/2013 8:04 AM EDT Height 165.1 cm (5' 5 ) 01/26/2013 8:04 AM EDT Body Mass Index 22.8 01/26/2013 8:04 AM EDT Plan of Treatment Health Maintenance Due Date Last Done Comments ANNUAL PHYSICAL 1945 DXA SCAN 1945 TDAP/TD VACCINES (1 - Tdap) 02/11/1964 Pneumococcal Vaccine 50+ (1 of 1 - PCV) 1995 ZOSTER VACCINE (1 of 2) 1995 RSV Vaccine - Adults (1 - 1-dose 75+ series) 0 INFLUENZA VACCINE 06/15/2025 COVID-19 Vaccine (1 - 2023- season) 2025
--- OUTSIDE RECORDS SUMMARY | 2025-08-20 15:05 | XMS_ITS ---
Author Organization [facility] , [facility] Address [address] [place] [address] Phone Care Team Providers Care Qa Manager Name Role Phone Isabella PAYAN, [facility] [phone] Plan of Treatment No Plan of Treatment Recorded Assessments Includes: Assessments for all patient encounters No Assessments Recorded Medical Equipment - Implanted Devices Includes: Current and historical Devices No Medical Equipment Recorded Medications Administered Includes: Administered Medications in patient's chart No Administered Medications Recorded Results Includes: Results from 08/20/2024 through 08/20/2025 No Results Recorded For Specified Dates History [...] basilio Dates 1 - Medicare Part B [facility] [id number] Nadira Almanza Alicja Self Clinical Notes Includes: Signed Clinical Notes starting from 10/29/2022 No Clinical Notes Recorded
--- OUTSIDE RECORDS SUMMARY | 2025-08-20 15:05 | XMS_ITS ---
Care Plan - [facility], [facility] Created on: August 20, 2025 Alicja Nadira L : 1945 Sex: Female Author Organization [facility] , [facility] Address [address] [place] [address] Phone Care Team Providers Care Launch Check Out Name Role Phone Isabella PAYAN, [facility] Unavailable [phone]
--- OUTSIDE RECORDS SUMMARY | 2025-08-20 15:05 | XMS_ITS | Clinical Summary ---
Author Organization [facility] Address [address] [place] [address] Care Team Providers Care Otologist Name Role Phone Wally Martinez MD Primary Care Provider [phone] Social History Tobacco Use Types Packs/Day Years Used Date Smoking Tobacco: Never Assessed Comments Unknown Sex and Gender Information Value Date Recorded Sex Assigned at Not on file Legal Sex Female 6:08 PM EDT Gender Identity Not on file Sexual Orientation Not on file Plan of Treatment Not on file Insurance MEDICARE Care Teams Otologist Relationship Specialty Start Date End Date Wally Martinez MD [address] [place] [address] PCP - General 03/28/21
== END 2025-08-20 23:59 | disposition home or self-care (01) ==
LOC: RT 15:03
PROVIDERS: PCP Internal Medicine Adolescent Medicine; Visit Provider Internal Medicine
DX: Z01.810 Encounter for preprocedural cardiovascular examination (principal); I08.8 Other rheumatic multiple valve diseases; I11.9 Hypertensive heart disease without heart failure; I25.10 Atherosclerotic heart disease of native coronary artery without angina pectoris; I48.91 Unspecified atrial fibrillation; E78.5 Hyperlipidemia, unspecified; Q24.5 Malformation of coronary vessels
CPT/HCPCS: 93306

== ENCOUNTER 2025-08-27 06:29 | Day surgery (SDC) | payer MEDICARE, SELFPAY ==
[2025-08-21 15:03] VITALS: BMI 18.0
--- NOTE | 2025-08-22 08:08 | EXP.HP ---
History of Present Illness *Admission Date: 08/27/25 *History of present illness: Mrs. Helm is an 80-year-old female who is here for screening/surveillance colonoscopy. The patient's colonoscopy with me then 2016 and she had 7 polyps (tubular adenomas x 7) removed. Her colonoscopy in August 2020 revealed a single polyp. She does state that her brother was diagnosed with colon cancer around the age of 60. The patient has struggled with chronic constipation and right and left upper quadrant abdominal pain (hepatic and splenic flexure syndrome).. The examination is deemed medically necessary for screening colonoscopy. The patient has been seen, interviewed and examined prior to the procedure by both myself and the anesthesia provider. [facility] Disclaimer: The information contained in this section may have been updated after the patient was seen, as this information can be updated by other users. Medical History SBO (small bowel obstruction) DA (acute kidney injury) LUQ pain RUQ pain Acute right ankle pain Acute pain of left knee Compression fracture Lumbar facet arthropathy Degenerative disc disease, lumbar PAF (paroxysmal atrial fibrillation) Palpitations Hypokalemia Small bowel obstruction Epigastric pain Bloating Chest pain Lung nodule Smoking greater than 30 pack years Dyspnea on exertion Screening for lung cancer History of COPD Stopped smoking with greater than 30 pack year history Shortness of breath Pneumonia History of COVID-19 History of gastroesophageal reflux (GERD) History of chest pain Small intestine obstruction SOB (shortness of breath) on exertion Fatigue KM (obstructive sleep apnea) COPD (chronic obstructive pulmonary disease) Surgical History History of arthroscopy of shoulder History of hysterectomy History of colonoscopy History of colon resection Family History Other Coronary artery disease Family history of GERD Family history of cancer Family history of diabetes mellitus type II Family history of hyperlipidemia Family history of hypertension Family history of myocardial infarction Social History (Updated 08/27/25 @ 06:54 by Kanika Snyder RN) Smoking Status: Former smoker tobacco type: cigarettes packs per day: 1 second hand exposure: No alcohol intake: never counseling provided: none substance use type: denies use current occupational status: other Travel in the last 8 weeks?: None household members: none housing: house current occupational exposures/hazards: No caffeine: Yes Have you lived/traveled outside US in past 30 days?: No Contact w/someone who lives/traveled outside US past 30 days?: No Exposure to someone with infectious disease in past 14 days?: No Do you have a fever (greater than 100.4 F or 38 C)?: No Have you tested positive for COVID-19?: No Exposed to someone with COVID-19 in past 14 days?: No Do you have a sore throat?: No Do you have a cough?: No Do you have any weakness?: No Are you experiencing any nausea/vomitting?: No Do you have any diarrhea?: No Are you experiencing any unusual bleeding?: No Do you have any muscle aches/pain?: No Do you have any abdominal pain?: No Are you experiencing loss of taste or smell?: No Other Medical History Have you received the Flu Vaccine for this season: No Have you received the Pneumonia Vaccine: Yes Review of Systems Review of Systems Review of systems (narrative): Negative *Cardiovascular Comments: Negative *Gastrointestinal Comments: Negative *Genitourinary Comments: Negative *Musculoskeletal Comments: Negative *Neurologic Comments: Negative Meds Home Medications and Allergies Home Medications ?Medication ?Instructions ?Recorded ?Confirmed ?Type spironolactone 25 mg tablet 25 mg PO BID 02/15/22 08/21/25 History pantoprazole 40 mg tablet,delayed 40 mg PO DAILY 10/23/22 08/21/25 History release denosumab 60 mg/mL subcutaneous 60 mg SQ [id number] 04/04/25 08/21/25 History syringe (Prolia) ipratropium 0.5 mg-albuterol 3 mg 3 ml inhalation Q8H 3 months #540 04/04/25 08/21/25 Rx (2.5 mg base)/3 mL nebulization mL soln metoprolol succinate 25 mg 25 mg PO DAILY 04/04/25 08/21/25 History tablet,extended release 24 hr polyethylene glycol 3350 17 17 g PO DAILYP PRN Constipation 04/04/25 08/21/25 History gram/dose oral powder (Miralax) aspirin 81 mg tablet 81 mg PO DAILY 04/17/25 08/21/25 History docusate sodium 50 mg tablet 50 mg PO DAILY Constipation 04/17/25 08/21/25 History methylcellulose (laxative) 500 mg 500 mg PO DAILY 05/02/25 08/21/25 History tablet (Citrucel) buspirone 10 mg tablet 10 mg PO BID #60 tabs 06/11/25 08/21/25 Rx rosuvastatin 20 mg tablet 20 mg PO DAILY #90 tabs 07/24/25 08/21/25 Rx cyanocobalamin (vitamin B-12) 1,000 mcg IM WEEKLY 07/31/25 08/21/25 History 1,000 mcg/mL injection solution syringe with needle, safety 3 mL #100 ea 07/31/25 07/31/25 History 23 gauge x 1 (UltiCare Safety Syringe) sodium,potassium,mag sulfates 17.5 See Rx Instructions PO .COMPLEX 08/15/25 08/20/25 Rx gram-3.13 gram-1.6 gram oral soln #354 mL (Suprep Bowel Prep Kit) peg 3350-electrolytes 236 240 ml PO Q10M colonscopy #4,000 mL 08/16/25 08/21/25 Rx gram-22.74 gram-6.74 gram-5.86 gram solution (Golytely) New Prescriptions to Start Prescriptions: Allergies Allergy/AdvReac Type Severity Reaction Status Date / Time atorvastatin AdvReac Mild myalgias Verified 08/27/25 06:58 Exam Data for Last 24 hours I & O for Last 24 hours: Intake & Output 08/19/25 08/20/25 08/21/25 08/22/25 23:59 23:59 23:59 23:59 Weight 105 lb *Routine HEENT Exam Head: Present normocephalic Eye: Present EOMI and PERRL ENT: Present mucous membranes moist *Routine Neck Exam Neck: Present supple *Routine Respiratory Exam Respiratory: Present CTA bilaterally *Routine Cardiovascular Exam Cardiovascular: Present RRR *Routine Abdominal Exam Abdominal: Present soft and normoactive bowel sounds; Absent tenderness *Routine Rectal Exam Rectal:: deferred *Routine Genitalia Exam Genitalia:: deferred *Routine Extremities Exam Extremities: Absent cyanosis, clubbing or edema *Routine Skin Exam Skin: Present warm; Absent rash *Routine Neurological Exam Neurological: Present alert and oriented X3 Assessment and Plan *Assessment and plan (1) Screening for colon cancer: Status: Acute Category: Medical Code(s): Z12.11 - Encounter for screening for malignant neoplasm of colon (2) Personal history of adenomatous and serrated colon polyps: Status: Acute Category: Medical Code(s): Z86.0101 - Personal history of adenomatous and serrated colon polyps (3) Family history of colon cancer: Status: Acute Category: Medical Code(s): Z80.0 - Family history of malignant neoplasm of digestive organs (4) Functional abdominal pain syndrome: Status: Acute Category: Medical Code(s): R10.9 - Unspecified abdominal pain Plan A/P: 1. Personal history of adenomatous colon polyps and family history of colon cancer is the preprocedural diagnosis. The patient will be anesthetized/sedated using MAC sedation. The patient has been seen and examined. Cardiac and lung assessment prior to the examination is stable. Proceed with planned screening/surveillance colonoscopy.
[2025-08-27 06:46] VITALS: BP 135/97; PULSE 85; RESP 18; TEMP 36.4; O2SAT 97; BMI 18.0
[2025-08-27] MEDS: LACTATED RINGERS 1000ML 1,000 ML 50 ML IV (07:01)
--- NOTE | 2025-08-27 07:01 | HMH.PROCNOTE ---
[facility] Procedure Note Date: 08/27/25 Time: 08:03 Procedure Note:: Colonoscopy Procedure Report: Colonoscopy with cold snare polypectomy Endoscopist: Thad Torres II, MD Referring physician: Wally Martinez M.D. Date of Procedure: August 27, 2025 Equipment: Olympus [id number] adult colonoscope Sedation: MAC sedation Indication: Mrs. Helm is an 80-year-old female who is here for screening/surveillance colonoscopy. The patient's colonoscopy with or then 2016 and she had 7 polyps (tubular adenomas x 7) removed. Her colonoscopy in August 2020 revealed a single polyp. She does state that her brother was diagnosed with colon cancer around the age of 60. The patient has struggled with chronic constipation and right and left upper quadrant abdominal pain (hepatic and splenic flexure syndrome). The patient does have dyspepsia and had EGD with or in May 2025. The patient has had moderate weight loss. The patient does have B12 deficiency. She is a long-term smoker and has COPD. The patient reports no rectal bleeding or change in bowel habits. The examination is deemed medically necessary for screening colonoscopy. Procedure: Prior to the procedure, a history and physical exam was performed, and patient's medications and allergies were reviewed. The risks, benefits and alternatives of the sedation and procedure were discussed with the patient. All questions were answered and informed consent was obtained. The patient was brought to the procedure room. Patient identification and proposed procedure were verified by the physician and the nurse. The patient was placed in a left lateral decubitus position and the scope was passed under direct vision. Throughout the procedure, the patient's blood pressure, pulse, and oxygen saturations were monitored continuously. The colonoscopy was accomplished without difficulty. The patient tolerated the procedure well. Findings: On digital rectal examination there was normal rectal tone. There were no external hemorrhoids. The colonoscope was introduced through the anal canal to the rectum and advanced to the cecum. The ileocecal valve and appendiceal orifice were identified. The scope was advanced a short distance into the ileum which appeared grossly normal. The scope was then withdrawn into the colon. There was a single polyp (ascending x 1 (5 mm)) which was removed via cold snare polypectomy. The remaining cecum, ascending, transverse, descending, sigmoid and rectum were grossly normal. There were no other mucosal abnormalities identified. Upon retroflexion within the rectum there were grade 1 internal hemorrhoids. The preparation was excellent throughout with Temple Preparation Score of 9. The cecal time was 12 minutes. Impression: 1. Diminutive ascending colon polyp (5 mm) Plan: The patient will not require any further preventive/screening colonoscopy. The patient does have functional abdominal pain and we will address this as well as her chronic constipation. 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
--- NOTE | 2025-08-27 07:07 | P.PNANES_ITS ---
[facility] Disclaimer: The information contained in this section may have been updated after the patient was seen, as this information can be updated by other users. Medical History SBO (small bowel obstruction) DA (acute kidney injury) LUQ pain RUQ pain Acute right ankle pain Acute pain of left knee Compression fracture Lumbar facet arthropathy Degenerative disc disease, lumbar PAF (paroxysmal atrial fibrillation) Palpitations Hypokalemia Small bowel obstruction Epigastric pain Bloating Chest pain Lung nodule Smoking greater than 30 pack years Dyspnea on exertion Screening for lung cancer History of COPD Stopped smoking with greater than 30 pack year history Shortness of breath Pneumonia History of COVID-19 History of gastroesophageal reflux (GERD) History of chest pain Small intestine obstruction SOB (shortness of breath) on exertion Fatigue KM (obstructive sleep apnea) COPD (chronic obstructive pulmonary disease) Surgical History History of arthroscopy of shoulder History of hysterectomy History of colonoscopy History of colon resection Family History Other Coronary artery disease Family history of GERD Family history of cancer Family history of diabetes mellitus type II Family history of hyperlipidemia Family history of hypertension Family history of myocardial infarction Social History (Updated 08/27/25 @ 06:54 by Kanika Snyder RN) Smoking Status: Former smoker tobacco type: cigarettes packs per day: 1 second hand exposure: No alcohol intake: never counseling provided: none substance use type: denies use current occupational status: other Travel in the last 8 weeks?: None household members: none housing: house current occupational exposures/hazards: No caffeine: Yes Have you lived/traveled outside US in past 30 days?: No Contact w/someone who lives/traveled outside US past 30 days?: No Exposure to someone with infectious disease in past 14 days?: No Do you have a fever (greater than 100.4 F or 38 C)?: No Have you tested positive for COVID-19?: No Exposed to someone with COVID-19 in past 14 days?: No Do you have a sore throat?: No Do you have a cough?: No Do you have any weakness?: No Are you experiencing any nausea/vomitting?: No Do you have any diarrhea?: No Are you experiencing any unusual bleeding?: No Do you have any muscle aches/pain?: No Do you have any abdominal pain?: No Are you experiencing loss of taste or smell?: No [facility] Anesthesia Checklist Patient Identification Patient Identification: Arm Band and Verbal (Name & ) Structural Data Admitted From: Home Planned Operative Procedure/s: colonoscopy Consent for Planned Operative Procedure(s) Verified: Yes Verified Documents: Surgical Consent NPO Status Verified Time NPO: 00:00 Additional verifications Anesthesia Reactions: No Airway Assessment Mallampati Score:: Class II C-Spine Mobility Assessed: Yes TMJ Mobility Assessed: Yes Dentition: Edentulous Neurological Assessment Level of Consciousness: Awake, Alert and Appropriate Hx Seizures: No Numbness or tingling in extremities: No Anesthesia Plan Anesthesia Risk discussed: Yes Anesthesia Plan: Verified ASA Class: III Anesthesia Type: MAC Preoperative Comments Pre-Operative Comments: L shoulder broken several years ago, patient ok to lay on left side during procedure, not painful just difficult to move.
[2025-08-27 08:05] VITALS: BP 70/44; PULSE 82; RESP 16; TEMP 36.4; O2SAT 96
[2025-08-27 08:15] VITALS: BP 82/44; PULSE 86; RESP 16; O2SAT 96
[2025-08-27 08:25] VITALS: BP 96/59; PULSE 76; RESP 18; O2SAT 95
[2025-08-27 08:35] VITALS: BP 105/67; PULSE 70; RESP 18; O2SAT 93
[2025-08-27 08:45] VITALS: BP 118/84; PULSE 70; RESP 18; TEMP 36.4; O2SAT 93
== END 2025-08-27 09:07 | disposition home or self-care (01) ==
PROVIDERS: PCP Internal Medicine Adolescent Medicine; Visit Provider Internal Medicine Gastroenterology
PROC: 0DJD8ZZ Inspection of Lower Intestinal Tract, Via Natural or Artificial Opening Endoscopic (ICD-10-PCS; CPT 45378; principal; 2025-08-27 08:00)
DX: Z12.11 Encounter for screening for malignant neoplasm of colon (principal); D12.2 Benign neoplasm of ascending colon; K64.0 First degree hemorrhoids; K59.09 Other constipation; M51.369 Other intervertebral disc degeneration, lumbar region without mention of lumbar back pain or lower extremity pain; I48.0 Paroxysmal atrial fibrillation; Z88.8 Allergy status to other drugs, medicaments and biological substances; Z86.0101 Personal history of adenomatous and serrated colon polyps; Z87.891 Personal history of nicotine dependence; Z80.0 Family history of malignant neoplasm of digestive organs
CPT/HCPCS: 45385; 88305; J2003; J2704; J7120

== ENCOUNTER 2025-09-13 09:59 | Outpatient (CLI) | payer MEDICARE, SELFPAY ==
[2025-09-13 10:11] VITALS: BP 113/70; PULSE 81; RESP 18; TEMP 36.4; O2SAT 97
[2025-09-13] MEDS: DENOSUMAB 60 MG/ML SYRINGE SUBCUT (10:11)
== END 2025-09-13 23:59 | disposition home or self-care (01) ==
LOC: INF 10:00
PROVIDERS: PCP Internal Medicine Adolescent Medicine; Visit Provider Internal Medicine Adolescent Medicine
DX: M81.0 Age-related osteoporosis without current pathological fracture (principal)
CPT/HCPCS: 96372; J0897

== ENCOUNTER 2025-10-02 21:33 | Emergency (ER) | payer MEDICARE, SELFPAY ==
[2025-10-02] VITALS (12 sets, daily range): BP systolic 105–159; BP diastolic 61–96; PULSE 71–120; RESP 19–29; TEMP 36.7; O2SAT 86–97; BMI 18.3
--- NOTE | 2025-10-02 21:42 | ECG_ITS ---
APPROVED REPORT Exam: Resting ECG HR:94 bpm ECG Measurements Heart Rate 94 AXES OK 120 P 61 QRSd 80 QRS 67 QT 326 T 61 QTc 378 Conclusion SINUS RHYTHM WITH OCCASIONAL SUPRAVENTRICULAR PREMATURE COMPLEXES BORDERLINE ECG Electronically signed by : ROCHELLE JOYA, 10/07/2025 07:39:20
--- NOTE | 2025-10-02 21:43 | XR_ITS ---
PROCEDURE INFORMATION: Exam: XR Chest Exam date and time: 10/02/2025 9:50 PM Age: 80 years old Clinical indication: Shortness of breath; Additional info: Shortness of air TECHNIQUE: Imaging protocol: Radiologic exam of the chest. Views: 1 view. COMPARISON: CR XR ACUTE ABDOMEN SERIES 04/17/2025 9:56 PM FINDINGS: Lungs: No consolidation. Chronic blunting of the right lateral costophrenic angle. Pleural spaces: No pleural effusion. No pneumothorax. Heart/Mediastinum: Stable cardiomediastinal contours. Bones/joints: Chronic deformity of the left humeral head. 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 IMPRESSION: No acute findings.
--- NOTE | 2025-10-02 21:44 | [facility].EDCP ---
Discharge Plan Disposition Patient Disposition: Home, Self-Care Condition: Good Prescriptions Prescriptions: New azithromycin 250 mg tablet 250 mg PO DAILY 4 Days Qty: 4 0RF prednisone 50 mg tablet 50 mg PO DAILY 4 Days Qty: 4 0RF No Action Citrucel 500 mg tablet 500 mg PO DAILY cyanocobalamin (vitamin B-12) 1,000 mcg/mL solution 1,000 mcg IM WEEKLY Patient Comments: INJECT 1 ML INTO THE MUSCLE OR UNDER THE SKIN ONCE A WEEK DIRECTED (DME) UltiCare Safety Syringe 3 mL 23 gauge x 1 syringe See Rx Instructions .ROUTE .MEDSUPPLY Qty: 100 Patient Comments: USE DIRECTED Rx Instructions: As directed metoprolol succinate 25 mg tablet extended release 24 hr 25 mg PO DAILY Patient Comments: TAKE 1 TABLET BY MOUTH ONCE DAILY FOR 90 DAYS ipratropium-albuterol 0.5 mg-3 mg(2.5 mg base)/3 mL solution for nebulization 3 ml inhalation Q8H 90 Days Qty: 540 3RF Prolia 60 mg/mL syringe 60 mg SQ [id number] polyethylene glycol 3350 [Miralax] 17 gram/dose powder 17 g PO DAILYP PRN (Reason: Constipation) methocarbamol 500 mg tablet 500 mg PO BID rosuvastatin 20 mg tablet 20 mg PO DAILY Qty: 90 1RF docusate sodium 50 mg Tablet 50 mg PO DAILY aspirin 81 mg Tablet 81 mg PO DAILY spironolactone 25 MG tablet 25 mg PO BID pantoprazole 40 mg tablet,delayed release (DR/EC) 40 mg PO DAILY Patient Comments: TAKE 1 TABLET BY MOUTH EVERY DAY FOR 30 DAYS Referrals Follow up/Referrals: Rebecca Valdes MD [Physician, Pulmonology] - See instructions Wally Martinez MD [Primary Care Provider, Internal Medicine] - See instructions Activity Restrictions/Add. Instructions Additional Instructions/Restrictions: You were evaluated in the ER and are believed to be appropriate for discharge at this time. Take prescribed medications as directed. Start taking the prednisone this morning (Wednesday morning). Start taking the azithromycin tomorrow ( morning) since you already received a dose of this here at the hospital. Take your albuterol inhaler as directed for shortness of breath. Make an appointment with your primary care doctor for reevaluation in 2 to 3 days. Please also call Dr. Valdes's office to make an appointment to follow-up for pulmonology. Return to the ER with any new, worsening, or otherwise concerning symptoms. Clinical Impressions Clinical Impression: Acute exacerbation of chronic obstructive pulmonary disease Print Language Print Language: Afghan Discharge ED Provider: Edgar Wellington HPI <Edgar Wellington MD - Last Filed: 10/02/25 23:01> General Chief Complaint: Shortness of Breath/Dyspnea Stated Complaint: SOA, fast heartrate Time Seen by Provider: 10/02/25 21:36 History of Present Illness HPI narrative: Patient is a 80-year-old female past medical history of COPD multi decade smoking pack-year history who presents emergency department for evaluation of shortness of breath. Patient has chronic shortness of breath at baseline but has gotten worse over the last 24 hours. No chest pain. There is an associated cough. No vomiting or abdominal pain reported. Due to persistent symptoms he presents here for continued evaluation. No other acute complaints at this time. Please note that above description of symptoms, in this electronic medical record under categorization of recalled from ER triage doctor by RN are reflective of an initial nursing assessment, however, is not reflective of my full history and physical exam that was personally taken and clarified. Consequentially, this preceding description of symptoms, which may include the patient's categorized chief complaint in the EMR, do not reflect my personal clinical impression, and the ultimate description of history of present illness and patient stated complaints should be deferred to this section of the note. Unless stated otherwise or congruent with this section of the note, additional signs, symptoms, or incongruence should be interpreted as inaccurate with my clinical impression. Related Data Home Medications ?Medication ?Instructions ?Recorded ?Confirmed spironolactone 25 mg tablet 25 mg PO BID 02/15/22 09/20/25 pantoprazole 40 mg tablet,delayed 40 mg PO DAILY 10/23/22 09/20/25 release denosumab 60 mg/mL subcutaneous 60 mg SQ [id number] 04/04/25 09/20/25 syringe (Prolia) metoprolol succinate 25 mg 25 mg PO DAILY 04/04/25 09/20/25 tablet,extended release 24 hr polyethylene glycol 3350 17 17 g PO DAILYP PRN Constipation 04/04/25 09/20/25 gram/dose oral powder (Miralax) aspirin 81 mg tablet 81 mg PO DAILY 04/17/25 09/20/25 docusate sodium 50 mg tablet 50 mg PO DAILY Constipation 04/17/25 09/20/25 methylcellulose (laxative) 500 mg 500 mg PO DAILY 05/02/25 09/20/25 tablet (Citrucel) cyanocobalamin (vitamin B-12) 1,000 mcg IM WEEKLY 07/31/25 09/20/25 1,000 mcg/mL injection solution syringe with needle, safety 3 mL #100 ea 07/31/25 09/13/25 23 gauge x 1 (UltiCare Safety Syringe) methocarbamol 500 mg tablet 500 mg PO BID 09/20/25 09/20/25 Previous Rx's ?Medication ?Instructions ?Recorded ipratropium 0.5 mg-albuterol 3 mg 3 ml inhalation Q8H 3 months #540 04/04/25 (2.5 mg base)/3 mL nebulization mL soln rosuvastatin 20 mg tablet 20 mg PO DAILY #90 tabs 07/24/25 azithromycin 250 mg tablet 250 mg PO DAILY 4 days #4 tabs 10/03/25 prednisone 50 mg tablet 50 mg PO DAILY 4 days #4 tabs 10/03/25 Allergies Allergy/AdvReac Type Severity Reaction Status Date / Time atorvastatin AdvReac Mild myalgias Verified 09/20/25 13:29 [facility] <Edgar Wellington MD - Last Filed: 10/02/25 23:01> [facility] Disclaimer: The information contained in this section may have been updated after the patient was seen, as this information can be updated by other users. Medical History SBO (small bowel obstruction) DA (acute kidney injury) LUQ pain RUQ pain Acute right ankle pain Acute pain of left knee Compression fracture Lumbar facet arthropathy Degenerative disc disease, lumbar PAF (paroxysmal atrial fibrillation) Palpitations Hypokalemia Small bowel obstruction Epigastric pain Bloating Chest pain Lung nodule Smoking greater than 30 pack years Dyspnea on exertion Screening for lung cancer History of COPD Stopped smoking with greater than 30 pack year history Shortness of breath Pneumonia History of COVID-19 History of gastroesophageal reflux (GERD) History of chest pain Small intestine obstruction SOB (shortness of breath) on exertion Fatigue KM (obstructive sleep apnea) COPD (chronic obstructive pulmonary disease) Surgical History History of arthroscopy of shoulder History of hysterectomy History of colonoscopy History of colon resection Family History Other Coronary artery disease Family history of GERD Family history of cancer Family history of diabetes mellitus type II Family history of hyperlipidemia Family history of hypertension Family history of myocardial infarction Social History Smoking Status: Former smoker tobacco type: cigarettes packs per day: 1 second hand exposure: No alcohol intake: never counseling provided: none substance use type: denies use current occupational status: other Travel in the last 8 weeks?: None household members: none housing: house current occupational exposures/hazards: No caffeine: Yes Have you lived/traveled outside [place] in past 30 days?: No Contact w/someone who lives/traveled outside [place] past 30 days?: No Exposure to someone with infectious disease in past 14 days?: No Do you have a fever (greater than 100.4 F or 38 C)?: No Have you tested positive for COVID-19?: No Exposed to someone with COVID-19 in past 14 days?: No Do you have a sore throat?: No Do you have a cough?: No Do you have any weakness?: No Do you have any diarrhea?: No Are you experiencing any unusual bleeding?: No Do you have any muscle aches/pain?: No Do you have any abdominal pain?: No Are you experiencing loss of taste or smell?: No Other Medical History Have you received the Flu Vaccine for this season: No Have you received the Pneumonia Vaccine: Yes <Edgar Wellington MD - Last Filed: 10/02/25 23:01> ROS Obtained: Yes Systems reviewed as appropriate & no additional complaints except as documented Physical Exam <Edgar Wellington MD - Last Filed: 10/02/25 23:01> General General appearance: alert and in no apparent distress Head Head exam: atraumatic and normocephalic Eye Eye exam: Present PERRL and EOMI ENT ENT exam: Present mucous membranes moist Neck Neck exam: Present normal inspection Chest Chest inspection: Present normal inspection and symmetric chest wall rise Respiratory Respiratory exam: Present wheezes (Scant wheezes in all lung acosta) and prolonged expiratory phase; Absent respiratory distress Cardiovascular Cardiovascular exam: Present regular rate and normal rhythm Extremities Exam Extremities exam: Present normal inspection Neurological Exam Neurological exam: Present alert Psychiatric Psychiatric exam: Present normal affect Skin Skin exam: Present warm and dry HEART Score <Edgar Wellington MD - Last Filed: 10/02/25 23:01> HEART Score HEART Score assessment performed?: Yes History (anamnesis): Slightly suspicious ECG: Normal Age: <45 years Risk factors: No known risk factors Troponin: </= normal limit HEART Score: 0 <Patrizia Boateng MD - Last Filed: 10/03/25 01:24> HEART Score HEART Score: 0 Critical Care <Edgar Wellington MD - Last Filed: 10/02/25 23:01> Critical Care Time Critical Care Time: Yes Attestation: On 10/02/25, the high probability of a clinically significant, sudden or life threatening deterioration of the following system(s) required my full and direct attention, intervention and personal management. The time I documented below is in addition to time spent performing reported procedures but includes the following listed in this critical care notation. Total Time Total Critical Care Time: 35 Medical Decision Making <Edgar Wellington MD - Last Filed: 10/02/25 23:01> Rich Inquiry Pt receiving controlled substance: No Vital Signs Vital Signs: 10/02/25 21:40 10/02/25 21:44 10/02/25 21:46 Temperature 98.0 F Temperature Source Oral Pulse Rate 117 H 96 H Pulse Rate [Left Radial] 109 H Respiratory Rate 19 19 Blood Pressure Blood Pressure [Right Arm] 159/96 H Blood Pressure Mean Blood Pressure Mean [Right Arm] 117 Blood Pressure Source [Right Arm] Automatic Cuff Blood Pressure Position [Right Arm] Sitting 02 Sat by Pulse Oximetry 96 97 Oxygen Delivery Method Room Air Room Air Oxygen Flow Rate (LPM) 10/02/25 21:49 10/02/25 22:00 10/02/25 22:00 Temperature Temperature Source Pulse Rate 74 Pulse Rate [Left Radial] Respiratory Rate 22 Blood Pressure 139/84 Blood Pressure [Right Arm] Blood Pressure Mean 106 Blood Pressure Mean [Right Arm] Blood Pressure Source [Right Arm] Blood Pressure Position [Right Arm] 02 Sat by Pulse Oximetry 96 95 Oxygen Delivery Method Room Air Room Air Oxygen Flow Rate (LPM) 10/02/25 22:00 10/02/25 22:15 10/02/25 22:30 Temperature Temperature Source Pulse Rate 118 H 92 H 71 Pulse Rate [Left Radial] Respiratory Rate 22 28 H Blood Pressure Blood Pressure [Right Arm] Blood Pressure Mean Blood Pressure Mean [Right Arm] Blood Pressure Source [Right Arm] Blood Pressure Position [Right Arm] 02 Sat by Pulse Oximetry 96 95 Oxygen Delivery Method Room Air Room Air Oxygen Flow Rate (LPM) 10/02/25 22:30 10/02/25 22:45 10/02/25 23:00 Temperature Temperature Source Pulse Rate 96 H Pulse Rate [Left Radial] Respiratory Rate 29 H Blood Pressure 111/68 105/61 L Blood Pressure [Right Arm] Blood Pressure Mean 82 75 Blood Pressure Mean [Right Arm] Blood Pressure Source [Right Arm] Blood Pressure Position [Right Arm] 02 Sat by Pulse Oximetry 95 Oxygen Delivery Method Room Air Oxygen Flow Rate (LPM) 10/02/25 23:00 10/02/25 23:15 10/02/25 23:30 Temperature Temperature Source Pulse Rate 100 H 103 H Pulse Rate [Left Radial] Respiratory Rate 25 H 22 Blood Pressure 116/63 Blood Pressure [Right Arm] Blood Pressure Mean 80 Blood Pressure Mean [Right Arm] Blood Pressure Source [Right Arm] Blood Pressure Position [Right Arm] 02 Sat by Pulse Oximetry 96 93 L Oxygen Delivery Method Room Air Room Air Oxygen Flow Rate (LPM) 10/02/25 23:30 10/02/25 23:30 10/02/25 23:45 Temperature Temperature Source Pulse Rate 107 H 120 H 112 H Pulse Rate [Left Radial] Respiratory Rate 24 26 H Blood Pressure Blood Pressure [Right Arm] Blood Pressure Mean Blood Pressure Mean [Right Arm] Blood Pressure Source [Right Arm] Blood Pressure Position [Right Arm] 02 Sat by Pulse Oximetry 89 L 86 L Oxygen Delivery Method Room Air Nasal Cannula Oxygen Flow Rate (LPM) 8 10/03/25 00:00 10/03/25 00:00 10/03/25 00:15 Temperature Temperature Source Pulse Rate 118 H 118 H Pulse Rate [Left Radial] Respiratory Rate 22 29 H Blood Pressure 122/69 Blood Pressure [Right Arm] Blood Pressure Mean 81 Blood Pressure Mean [Right Arm] Blood Pressure Source [Right Arm] Blood Pressure Position [Right Arm] 02 Sat by Pulse Oximetry 100 95 Oxygen Delivery Method Nasal Cannula Room Air Oxygen Flow Rate (LPM) 8 10/03/25 00:16 10/03/25 00:30 10/03/25 00:30 Temperature Temperature Source Pulse Rate 127 H Pulse Rate [Left Radial] Respiratory Rate Blood Pressure 120/69 Blood Pressure [Right Arm] Blood Pressure Mean 82 Blood Pressure Mean [Right Arm] Blood Pressure Source [Right Arm] Blood Pressure Position [Right Arm] 02 Sat by Pulse Oximetry Oxygen Delivery Method Room Air Oxygen Flow Rate (LPM) 10/03/25 00:30 10/03/25 00:45 10/03/25 01:00 Temperature Temperature Source Pulse Rate 130 H 127 H 112 H Pulse Rate [Left Radial] Respiratory Rate 21 18 18 Blood Pressure 119/60 Blood Pressure [Right Arm] Blood Pressure Mean 81 Blood Pressure Mean [Right Arm] Blood Pressure Source [Right Arm] Blood Pressure Position [Right Arm] 02 Sat by Pulse Oximetry 94 L 94 L 96 Oxygen Delivery Method Room Air Room Air Oxygen Flow Rate (LPM) Lab Data Labs: Lab Results 10/02/25 21:24: WBC 6.9, RBC 4.34, Hgb 12.8, Hct 38.7, MCV 89.2, MCH 29.5, MCHC 33.1, RDW 13.6, Plt Count 251, MPV 10.4, Neut % (Auto) 53.4, Lymph % (Auto) 35.9, Bowman % (Auto) 6.9, Eos % (Auto) 2.5, Baso % (Auto) 1.2, Neut # (Auto) 3.7, Lymph # (Auto) 2.5, Bowman # (Auto) 0.5, Eos # (Auto) 0.2, Baso # (Auto) 0.1, Sodium 137, Potassium 5.1, Chloride 97 L, Carbon Dioxide 24, Anion Gap 21.1 H, BUN 33 H, Creatinine 1.30 H, Estimated Creat Clear 26, Estimated GFR 39 L, Est GFR ( Amer) 48 L, Glucose 109 H, Calcium 9.5, Total Bilirubin 0.5, AST 42 H, ALT 20, Alkaline Phosphatase 62, Troponin I < 0.01, Total Protein 9.0 H D, Albumin 5.0, Globulin 4.0 H, Albumin/Globulin Ratio 1.3, HCV Ab DESMOND w/Rflx PCR Qn Negative, HIV Ag/Ab Combo Qual Negative 10/02/25 21:41: VBG pH 7.32, VBG pCO2 44.8, VBG pO2 33.6, VBG HCO3 22.8 L, VBG Total CO2 24.1, VBG O2 Saturation 60.8, VBG Base Excess -3.3 L, VBG Lactic Acid 1.6 10/02/25 21:47: SARS-CoV-2 (PCR) Not detected, Influenza A Untype (PCR) Not detected, Influenza Type B (PCR) Not detected 10/02/25 21:24 10/02/25 21:24 Response Orders (Tests/Meds): ED MEDICATIONS Generic Name Dose Route Start Last Admin Trade Name Freq PRN Reason Stop Dose Admin Azithromycin 500 mg 10/03/25 01:15 Azithromycin 250mg Tablet PO 10/03/25 01:16 ONCE ONE Discontinued Medications Generic Name Dose Route Start Last Admin Trade Name Freq PRN Reason Stop Dose Admin Albuterol Sulfate 20 mg 10/02/25 23:03 10/02/25 23:18 Albuterol 0.083% 2.5 Mg/3 Ml [facility] 10/02/25 23:04 20 mg ONCE ONE Administration Albuterol/Ipratropium 9 ml 10/02/25 21:43 10/02/25 21:57 Ipratropium/Albuterol 3 Ml Neb 10/02/25 21:44 9 ml ONCE ONE Administration Aspirin 324 mg 10/02/25 21:49 10/02/25 21:56 Aspirin 81mg Chewable Tablet PO 10/02/25 21:50 324 mg ONCE ONE Administration Magnesium Sulfate 2 gm in 50 mls @ 50 mls/hr 10/02/25 21:48 10/02/25 22:59 Magnesium Sulfate 2gm/50ml Premix IV 10/02/25 22:47 Infused ONCE ONE Infusion Iopamidol 70 ml 10/02/25 23:17 10/02/25 23:18 Iopamidol-370 (76%);100ml Bottle IV 10/02/25 23:18 70 ml ONCE ONE Administration Methylprednisolone Sodium Succinate 125 mg 10/02/25 21:48 10/02/25 21:58 Methylprednisolone Sod Succ 125mg Vial IV 10/02/25 21:49 125 mg ONCE ONE Administration Sodium Chloride 50 ml 10/02/25 23:17 10/02/25 23:18 0.9 % Sodium Chloride 50 Ml Vial IV 10/02/25 23:18 50 ml ONCE ONE Administration Sodium Chloride 10 ml 10/02/25 23:17 10/02/25 23:18 Sodium Chloride 0.9% 10ml Syr (Rad Only) IV 10/02/25 23:18 10 ml ONCE ONE Administration ORDERS Category Date Time Status CT angio chest PE protocol Stat Cat Scan 10/02/25 22:55 Completed XR chest portable Stat Exams 10/02/25 21:43 Completed Complete Blood Count Auto Diff Stat Lab 10/02/25 21:24 Completed Comprehensive Metabolic Panel Stat Lab 10/02/25 21:24 Completed HIV Combo Stat Lab 10/02/25 21:24 Completed Hepatitis C Ab Qual. W/ RFX Stat Lab 10/02/25 21:24 Completed Rapid PCR Covid and Flu A/B Stat Lab 10/02/25 21:47 Completed Troponin I Stat Lab 10/02/25 21:24 Completed Venous Blood Gas Stat RT 10/02/25 21:41 Completed ECG Data Tracing #1: ECG Narrative: Independently interpreted by me rate is 94, rhythm is regular, axis is normal, no ST elevation in anatomical contiguous leads, QTc 378 MDM Narrative Medical Decision Narrative: In summary patient is a 80-year-old female with past medical history of scrota but presents emergency department for evaluation of shortness of breath and cough in the setting of COPD. Patient is hemodynamically stable and nontoxic-appearing upon arrival, afebrile, saturating well on room air. Differential diagnosis includes COPD exacerbation from a virus, pneumonia, atypical ACS, pulmonary embolism, malignancy, among others. Workup in totality will be conducted with hematologic labs, CTA chest pulmonary embolism protocol, VBG, respiratory swab, troponin, EKG. Initial inventions include DuoNebs x 3, methylprednisolone, IV magnesium, aspirin. Initial workup reviewed by me no significant leukocytosis no transfusable anemia compensated acid-base status no DA or critical electrolyte abnormality initial troponin undetectably low. Chest x-ray informally interpreted by me perihilar changes, calcification over the cardiomediastinal silhouette, diffuse interstitial architectural changes undetermined chronicity. Will proceed with CT scan at this time. Upon repeat evaluation patient did have some improved breathing and resolution of wheezing improved airflow. Still persistent tachypnea continuous albuterol will be ordered. CT ultimate disposition pending at time of transfer care to the oncoming physician, Dr. Boateng. <Patrizia Boateng MD - Last Filed: 10/03/25 01:24> Vital Signs Vital Signs: 10/02/25 21:40 10/02/25 21:44 10/02/25 21:46 Temperature 98.0 F Temperature Source Oral Pulse Rate 117 H 96 H Pulse Rate [Left Radial] 109 H Respiratory Rate 19 19 Blood Pressure Blood Pressure [Right Arm] 159/96 H Blood Pressure Mean Blood Pressure Mean [Right Arm] 117 Blood Pressure Source [Right Arm] Automatic Cuff Blood Pressure Position [Right Arm] Sitting 02 Sat by Pulse Oximetry 96 97 Oxygen Delivery Method Room Air Room Air Oxygen Flow Rate (LPM) 10/02/25 21:49 10/02/25 22:00 10/02/25 22:00 Temperature Temperature Source Pulse Rate 74 Pulse Rate [Left Radial] Respiratory Rate 22 Blood Pressure 139/84 Blood Pressure [Right Arm] Blood Pressure Mean 106 Blood Pressure Mean [Right Arm] Blood Pressure Source [Right Arm] Blood Pressure Position [Right Arm] 02 Sat by Pulse Oximetry 96 95 Oxygen Delivery Method Room Air Room Air Oxygen Flow Rate (LPM) 10/02/25 22:00 10/02/25 22:15 10/02/25 22:30 Temperature Temperature Source Pulse Rate 118 H 92 H 71 Pulse Rate [Left Radial] Respiratory Rate 22 28 H Blood Pressure Blood Pressure [Right Arm] Blood Pressure Mean Blood Pressure Mean [Right Arm] Blood Pressure Source [Right Arm] Blood Pressure Position [Right Arm] 02 Sat by Pulse Oximetry 96 95 Oxygen Delivery Method Room Air Room Air Oxygen Flow Rate (LPM) 10/02/25 22:30 10/02/25 22:45 10/02/25 23:00 Temperature Temperature Source Pulse Rate 96 H Pulse Rate [Left Radial] Respiratory Rate 29 H Blood Pressure 111/68 105/61 L Blood Pressure [Right Arm] Blood Pressure Mean 82 75 Blood Pressure Mean [Right Arm] Blood Pressure Source [Right Arm] Blood Pressure Position [Right Arm] 02 Sat by Pulse Oximetry 95 Oxygen Delivery Method Room Air Oxygen Flow Rate (LPM) 10/02/25 23:00 10/02/25 23:15 10/02/25 23:30 Temperature Temperature Source Pulse Rate 100 H 103 H Pulse Rate [Left Radial] Respiratory Rate 25 H 22 Blood Pressure 116/63 Blood Pressure [Right Arm] Blood Pressure Mean 80 Blood Pressure Mean [Right Arm] Blood Pressure Source [Right Arm] Blood Pressure Position [Right Arm] 02 Sat by Pulse Oximetry 96 93 L Oxygen Delivery Method Room Air Room Air Oxygen Flow Rate (LPM) 10/02/25 23:30 10/02/25 23:30 10/02/25 23:45 Temperature Temperature Source Pulse Rate 107 H 120 H 112 H Pulse Rate [Left Radial] Respiratory Rate 24 26 H Blood Pressure Blood Pressure [Right Arm] Blood Pressure Mean Blood Pressure Mean [Right Arm] Blood Pressure Source [Right Arm] Blood Pressure Position [Right Arm] 02 Sat by Pulse Oximetry 89 L 86 L Oxygen Delivery Method Room Air Nasal Cannula Oxygen Flow Rate (LPM) 8 10/03/25 00:00 10/03/25 00:00 10/03/25 00:15 Temperature Temperature Source Pulse Rate 118 H 118 H Pulse Rate [Left Radial] Respiratory Rate 22 29 H Blood Pressure 122/69 Blood Pressure [Right Arm] Blood Pressure Mean 81 Blood Pressure Mean [Right Arm] Blood Pressure Source [Right Arm] Blood Pressure Position [Right Arm] 02 Sat by Pulse Oximetry 100 95 Oxygen Delivery Method Nasal Cannula Room Air Oxygen Flow Rate (LPM) 8 10/03/25 00:16 10/03/25 00:30 10/03/25 00:30 Temperature Temperature Source Pulse Rate 127 H Pulse Rate [Left Radial] Respiratory Rate Blood Pressure 120/69 Blood Pressure [Right Arm] Blood Pressure Mean 82 Blood Pressure Mean [Right Arm] Blood Pressure Source [Right Arm] Blood Pressure Position [Right Arm] 02 Sat by Pulse Oximetry Oxygen Delivery Method Room Air Oxygen Flow Rate (LPM) 10/03/25 00:30 10/03/25 00:45 10/03/25 01:00 Temperature Temperature Source Pulse Rate 130 H 127 H 112 H Pulse Rate [Left Radial] Respiratory Rate 21 18 18 Blood Pressure 119/60 Blood Pressure [Right Arm] Blood Pressure Mean 81 Blood Pressure Mean [Right Arm] Blood Pressure Source [Right Arm] Blood Pressure Position [Right Arm] 02 Sat by Pulse Oximetry 94 L 94 L 96 Oxygen Delivery Method Room Air Room Air Oxygen Flow Rate (LPM) Lab Data Labs: Lab Results 10/02/25 21:24: WBC 6.9, RBC 4.34, Hgb 12.8, Hct 38.7, MCV 89.2, MCH 29.5, MCHC 33.1, RDW 13.6, Plt Count 251, MPV 10.4, Neut % (Auto) 53.4, Lymph % (Auto) 35.9, Bowman % (Auto) 6.9, Eos % (Auto) 2.5, Baso % (Auto) 1.2, Neut # (Auto) 3.7, Lymph # (Auto) 2.5, Bowman # (Auto) 0.5, Eos # (Auto) 0.2, Baso # (Auto) 0.1, Sodium 137, Potassium 5.1, Chloride 97 L, Carbon Dioxide 24, Anion Gap 21.1 H, BUN 33 H, Creatinine 1.30 H, Estimated Creat Clear 26, Estimated GFR 39 L, Est GFR ( Amer) 48 L, Glucose 109 H, Calcium 9.5, Total Bilirubin 0.5, AST 42 H, ALT 20, Alkaline Phosphatase 62, Troponin I < 0.01, Total Protein 9.0 H D, Albumin 5.0, Globulin 4.0 H, Albumin/Globulin Ratio 1.3, HCV Ab DESMOND w/Rflx PCR Qn Negative, HIV Ag/Ab Combo Qual Negative 10/02/25 21:41: VBG pH 7.32, VBG pCO2 44.8, VBG pO2 33.6, VBG HCO3 22.8 L, VBG Total CO2 24.1, VBG O2 Saturation 60.8, VBG Base Excess -3.3 L, VBG Lactic Acid 1.6 10/02/25 21:47: SARS-CoV-2 (PCR) Not detected, Influenza A Untype (PCR) Not detected, Influenza Type B (PCR) Not detected Response Orders (Tests/Meds): ED MEDICATIONS Generic Name Dose Route Start Last Admin Trade Name Freq PRN Reason Stop Dose Admin Azithromycin 500 mg 10/03/25 01:15 Azithromycin 250mg Tablet PO 10/03/25 01:16 ONCE ONE Discontinued Medications Generic Name Dose Route Start Last Admin Trade Name Freq PRN Reason Stop Dose Admin Albuterol Sulfate 20 mg 10/02/25 23:03 10/02/25 23:18 Albuterol 0.083% 2.5 Mg/3 Ml Neb [facility] 10/02/25 23:04 20 mg ONCE ONE Administration Albuterol/Ipratropium 9 ml 10/02/25 21:43 10/02/25 21:57 Ipratropium/Albuterol 3 Ml Neb [facility] 10/02/25 21:44 9 ml ONCE ONE Administration Aspirin 324 mg 10/02/25 21:49 10/02/25 21:56 Aspirin 81mg Chewable Tablet PO 10/02/25 21:50 324 mg ONCE ONE Administration Magnesium Sulfate 2 gm in 50 mls @ 50 mls/hr 10/02/25 21:48 10/02/25 22:59 Magnesium Sulfate 2gm/50ml Premix IV 10/02/25 22:47 Infused ONCE ONE Infusion Iopamidol 70 ml 10/02/25 23:17 10/02/25 23:18 Iopamidol-370 (76%);100ml Bottle IV 10/02/25 23:18 70 ml ONCE ONE Administration Methylprednisolone Sodium Succinate 125 mg 10/02/25 21:48 10/02/25 21:58 Methylprednisolone Sod Succ 125mg Vial IV 10/02/25 21:49 125 mg ONCE ONE Administration Sodium Chloride 50 ml 10/02/25 23:17 10/02/25 23:18 0.9 % Sodium Chloride 50 Ml Vial IV 10/02/25 23:18 50 ml ONCE ONE Administration Sodium Chloride 10 ml 10/02/25 23:17 10/02/25 23:18 Sodium Chloride 0.9% 10ml Syr (Rad Only) IV 10/02/25 23:18 10 ml ONCE ONE Administration ORDERS Category Date Time Status CT angio chest PE protocol Stat Cat Scan 10/02/25 22:55 Completed XR chest portable Stat Exams 10/02/25 21:43 Completed Complete Blood Count Auto Diff Stat Lab 10/02/25 21:24 Completed Comprehensive Metabolic Panel Stat Lab 10/02/25 21:24 Completed HIV Combo Stat Lab 10/02/25 21:24 Completed Hepatitis C Ab Qual. W/ RFX Stat Lab 10/02/25 21:24 Completed Rapid PCR Covid and Flu A/B Stat Lab 10/02/25 21:47 Completed Troponin I Stat Lab 10/02/25 21:24 Completed Venous Blood Gas Stat RT 10/02/25 21:41 Completed MDM Narrative Medical Decision Narrative: In summary patient is a 80-year-old female with past medical history of scrota but presents emergency department for evaluation of shortness of breath and cough in the setting of COPD. Patient is hemodynamically stable and nontoxic-appearing upon arrival, afebrile, saturating well on room air. Differential diagnosis includes COPD exacerbation from a virus, pneumonia, atypical ACS, pulmonary embolism, malignancy, among others. Workup in totality will be conducted with hematologic labs, CTA chest pulmonary embolism protocol, VBG, respiratory swab, troponin, EKG. Initial inventions include DuoNebs x 3, methylprednisolone, IV magnesium, aspirin. Initial workup reviewed by me no significant leukocytosis no transfusable anemia compensated acid-base status no DA or critical electrolyte abnormality initial troponin undetectably low. Chest x-ray informally interpreted by me perihilar changes, calcification over the cardiomediastinal silhouette, diffuse interstitial architectural changes undetermined chronicity. Will proceed with CT scan at this time. Upon repeat evaluation patient did have some improved breathing and resolution of wheezing improved airflow. Still persistent tachypnea continuous albuterol will be ordered. CT ultimate disposition pending at time of transfer care to the oncoming physician, Dr. Boateng. Kilo: Upon my assumption of care patient is stable and continuous albuterol treatment has been started. I agree with the assessment and plan from Dr. Wellington. CTA PE on my personal interpretation did not demonstrate large segmental or subsegmental PE, radiology read comments that there is limited evaluation of the lower lobe subsegmental pulmonary artery secondary to motion but there is no definitive PE. She has chronic osseous changes in the back. Patient does have significant emphysema. See radiology read for final interpretation. After completion of continuous albuterol treatment patient is somewhat tachycardic but this is to be expected with the beta adrenergic effects. Respiratory rate has improved now 17-23, saturating 96 to 100% on room air. I am reassured by this and believe the patient is appropriate for discharge at this time. She received a dose of azithromycin in the ER and I prescribed azithromycin and steroids for continued outpatient treatment. She has albuterol MDI at home and was instructed on continued use of this. I referred her to pulmonology for outpatient follow-up as well. Patient was given instructions on symptomatic management, follow up instructions, and return precautions for the emergency department. Patient indicated understanding and was discharged in stable condition.
[2025-10-02 21:48] LABS: Hematocrit 38.7 % (37.0-47.0); Hemoglobin 12.8 g/dL (12.2-16.2); Immature Granulocytes % 0.1 %; Mean Corpuscular HGB Conc 33.1 g/dL (31.8-35.4); Mean Corpuscular Hemoglobin 29.5 pg (27.0-31.2); Mean Corpuscular Volume 89.2 fl (81-99); Nucleated Red Blood Cells % 0 %; Platelet Count 251 K/mm3 (142-424); Red Blood Count 4.34 M/mm3 (4.20-5.40); Red Cell Distribution Width-SD 44.5 fL; White Blood Count 6.9 K/mm3 (4.8-10.8)
[2025-10-02 21:49] LABS: Coronavirus 19, PCR Not Detected (NotDetected); Influenza A, PCR Not Detected (NotDetected); Influenza B, PCR Not Detected (NotDetected)
[2025-10-02 21:49] LABS: Lactate Venous 1.6 mmol/L (0.4-2.0); VBG HCO3 22.8 mmol/L (23-30); VBG PCO2 44.8 mmol/L (35-51); VBG PH 7.32 mmol/L (7.31-7.41); VBG PO2 33.6 mmol/L (28-40)
[2025-10-02 21:55] LABS: Albumin Level 5.0 g/dl (3.5-5.0); Chloride 97 mmol/L (98-107); Potassium 5.1 mmoL/L (3.5-5.1); Sodium 137 mmol/L (136-145)
[2025-10-02] MEDS: ASPIRIN 81MG CHEWABLE TABLET 324 MG PO (21:56)
[2025-10-02] MEDS: MAGNESIUM SULFATE IN WATER 2 GM/50 ML PIGGYBACK IV (21:57)
[2025-10-02] MEDS: IPRATROPIUM/ALBUTEROL 3 ML NEB 9 ML IH (21:57)
[2025-10-02 21:58] LABS: Alanine Aminotransferase 20 U/L (12-78); Albumin/Globulin Ratio 1.3 (1.1-1.8); Alkaline Phosphatase 62 U/L (38-126); Anion Gap 21.1 mEq/L (5-15); Aspartate Amino Transferase 42 U/L (14-36); Bilirubin,Total 0.5 mg/dl (0.2-1.3); Blood Urea Nitrogen 33 mg/dl (7-17); Carbon Dioxide 24 mmol/L (22.0-30.0); Creatinine Clearance Estimated 26 mL/min (50-200); Creatinine,Serum 1.30 mg/dl (0.52-1.04); Estimated Glomerular Filt Rate 39 ml/min (>60); GFR (African American) 48 ML/MIN (>60); Globulin 4.0 g/dL (1.3-3.2); Total Protein,Serum 9.0 g/dl (6.3-8.2)
[2025-10-02] MEDS: METHYLPREDNISOLONE SOD SUCC 125MG VIAL 125 MG IV (21:58)
[2025-10-02 21:59] LABS: Calcium 9.5 mg/dl (8.4-10.2); Glucose 109 mg/dl (74-100)
[2025-10-02 22:13] LABS: Troponin I < 0.01 ng/ml (0.00-0.034)
--- NOTE | 2025-10-02 22:55 | CT_ITS ---
PROCEDURE INFORMATION: Exam: CTA Chest With Contrast Exam date and time: 10/02/2025 11:09 PM Age: 80 years old Clinical indication: Cough and shortness of breath; Additional info: Cough, SOB TECHNIQUE: Imaging protocol: Computed tomographic angiography of the chest with contrast. Exam focused on the arteries. 3D rendering (Not supervised by radiologist): MIP and/or 3D reconstructed images were created by the technologist. Radiation optimization: All CT scans at this facility use at least one of these dose optimization techniques: automated exposure control; mA and/or kV adjustment per patient size (includes targeted exams where dose is matched to clinical indication); or iterative reconstruction. Contrast material: ISOVUE; Contrast volume: 70 ml; Contrast route: INTRAVENOUS (IV); COMPARISON: CT ANGIO CHEST PE PROTOCOL 08/23/2022 11:38 PM FINDINGS: Pulmonary arteries: Limited evaluation of lower lobe subsegmental pulmonary artery branches secondary to motion artifact. Within the limits of the exam, no definitively identifiable pulmonary artery embolism. Aorta: Atherosclerosis. No aortic aneurysm. No aortic dissection. Lungs: Emphysema. Mild atelectasis. No consolidation. No masses. Few calcified granulomas. Pleural spaces: Unremarkable. No pneumothorax. No pleural effusion. Heart: Unremarkable. No cardiomegaly. No pericardial effusion. Coronary arteries: Coronary artery calcifications. Lymph nodes: Unremarkable. No enlarged lymph nodes. Gallbladder and biliary ducts: Postsurgical changes of cholecystectomy with expected mild biliary ductal dilatation. Bones/joints: Multiple chronic appearing compression deformities with T11 and L1 kyphoplasty. Thoracic hyperkyphosis. Chronic left humeral head deformity. Degenerative changes. Soft tissues: Unremarkable. IMPRESSION: 1. Limited evaluation of lower lobe subsegmental pulmonary artery branches secondary to motion artifact. Within the limits of the exam, no definitively identifiable pulmonary artery embolism. 2. Emphysema.
[2025-10-02 23:08] LABS: Hepatitis C Ab Qual. W/ RFX NEGATIVE (Negative)
[2025-10-02] MEDS: IOPAMIDOL-370 (76%);100ML BOTTLE 70 ML IV (23:18)
[2025-10-02] MEDS: 0.9 % SODIUM CHLORIDE 50 ML VIAL IV (23:18)
[2025-10-02] MEDS: ALBUTEROL 0.083% 2.5 MG/3 ML NEB 20 MG IH (23:18)
[2025-10-02] MEDS: SODIUM CHLORIDE 0.9% 10ML SYR (RAD ONLY) 10 ML IV (23:18)
[2025-10-03] VITALS: BP 122/69; PULSE 118; RESP 22; O2SAT 100
[2025-10-03 00:15] VITALS: PULSE 118; RESP 29; O2SAT 95
[2025-10-03 00:30] VITALS: BP 120/69; PULSE 127; PULSE 130; RESP 21; O2SAT 94
[2025-10-03 00:45] VITALS: PULSE 127; RESP 18; O2SAT 94
[2025-10-03 01:00] VITALS: BP 119/60; PULSE 112; RESP 18; O2SAT 96
[2025-10-03] MEDS: AZITHROMYCIN 250MG TABLET 500 MG PO (01:48)
[2025-10-03 02:07] VITALS: BP 107/58; PULSE 116; RESP 20; TEMP 36.7; O2SAT 96
== END 2025-10-03 02:13 | disposition home or self-care (01) ==
PROVIDERS: Emergency Provider Emergency Medicine; PCP Internal Medicine Adolescent Medicine
DX: J44.1 Chronic obstructive pulmonary disease with (acute) exacerbation (principal); Z87.891 Personal history of nicotine dependence
CPT/HCPCS: 71045; 71275; 80053; 82803; 84484; 85025; 86803; 87389; 87636; 93005; 96365; 96375; 99285; J2919; J3475; Q9967

== ENCOUNTER 2025-10-08 11:26 | Outpatient (CLI) | payer MEDICARE, SELFPAY ==
--- OUTSIDE RECORDS SUMMARY | 2025-10-08 11:51 | XMS_ITS | Clinical Summary ---
[facility] Address [address] [place] [address] Care Team Providers Care Oceanography Professor Name Role Phone Unavailable Primary Care Provider [...]
--- OUTSIDE RECORDS SUMMARY | 2025-10-08 11:51 | XMS_ITS | Clinical Summary ---
Author Organization [facility] Address [address] [place] [address] Care Team Providers Care Shrimp Peeling Machine Tender Name Role Phone Wally Martinez MD Primary Care Provider [phone] Social History Tobacco Use Types Packs/Day Years Used Date Smoking Tobacco: Never Assessed Comments Unknown Sex and Gender Information Value Date Recorded Sex Assigned at Not on file Legal Sex Female 6:08 PM EDT Gender Identity Not on file Sexual Orientation Not on file Plan of Treatment Not on file Insurance MEDICARE Care Teams Shrimp Peeling Machine Tender Relationship Specialty Start Date End Date Wally Martinez MD [address] [place] [address] [place] [address] PCP - General 03/28/21
== END 2025-10-08 23:59 | disposition home or self-care (01) ==
LOC: RT 11:27
PROVIDERS: PCP Internal Medicine Adolescent Medicine; Visit Provider Nurse Practitioner Family
DX: I47.10 Supraventricular tachycardia, unspecified (principal); I49.3 Ventricular premature depolarization; Z86.79 Personal history of other diseases of the circulatory system
CPT/HCPCS: 93226

== ENCOUNTER 2025-10-10 12:25 | Outpatient (CLI) | payer MEDICARE, SELFPAY ==
--- OUTSIDE RECORDS SUMMARY | 2025-10-10 12:28 | XMS_ITS | Clinical Summary ---
Author Organization [facility] Address [address] [place] [address] Care Team Providers Care Medical Technologist Prn Name Role Phone Wally Martinez MD Primary Care Provider [phone] Social History Tobacco Use Types Packs/Day Years Used Date Smoking Tobacco: Never Assessed Comments Unknown Sex and Gender Information Value Date Recorded Sex Assigned at Not on file Legal Sex Female 6:08 PM EDT Gender Identity Not on file Sexual Orientation Not on file Plan of Treatment Not on file Insurance MEDICARE Care Teams Medical Technologist Prn Relationship Specialty Start Date End Date Wally Martinez MD [address] [place] [address] [place] [address] PCP - General 03/28/21
--- OUTSIDE RECORDS SUMMARY | 2025-10-10 12:28 | XMS_ITS | Clinical Summary ---
[facility] Address [address] [place] [address] Care Team Providers Care Landing Gear Mechanic Name Role Phone Unavailable Primary Care Provider [...]
== END 2025-10-10 23:59 | disposition home or self-care (01) ==
LOC: RT 12:27
PROVIDERS: PCP Internal Medicine Adolescent Medicine; Visit Provider Nurse Practitioner Family
DX: R00.0 Tachycardia, unspecified (principal); R06.02 Shortness of breath; R00.2 Palpitations
CPT/HCPCS: 93270